=== PATIENT | male | born 1980 | race Caucasian/White ===

== ENCOUNTER 2016-07-23 13:18 | Inpatient (IN) | payer OTHER ==
[~2016-07-23] VITALS: Ht 167.6 cm; Wt 59.0 kg
[2016-07-23] VITALS (12 sets, daily range): BP systolic 116–205; BP diastolic 79–127; PULSE 90–109; TEMP 36.7–36.9; O2SAT 96; Ht 167.6 cm; Wt 59.0 kg
[~2016-07-23 13:18] MED LIST: ALPR-411 PO; AMLO-114 PO; AMT10 PO; ASPI81TA28 PO; CALC500C3 PO; CHOL1000 PO; CINA0.42 PO; CLON0.2T PO; CLON0.3D5 EXT; HYDR100T12 PO; LBT200 PO; LISI40TA PO; METO-157 PO; PANT40TA PO; SERT50TA PO; SEVE1TAB PO; TRAZ50TA35 PO
[2016-07-23] MEDS ORDERED: SODIUM CHLORIDE 0.9% 500ML 500 ML IV STA (13:54)
[2016-07-23] MEDS ORDERED: ONDANSETRON INJ 2 MG/ML 2 ML VIAL IV STA (13:54)
[2016-07-23] MEDS ORDERED: HYDROmorphone INJ 1 MG/ML SYR IV ONE (14:00)
[2016-07-23 15:02] LABS: BASO % 0.2 %; BASO ABS # 0.01 K/uL (0-0.2); COMPLETE YES; EOS % 0.2 %; HEMATOCRIT 37.9 % (42-52); IG% 0.2 %; LYMPH % 10.4 %; LYMPH ABS # 0.67 K/uL (1.2-3.4); MEAN CELL VOLUME 93.1 fL (80-100); MEAN CORPUSCULAR HGB CONC 33.2 g/dl (32-36); MEAN PLATELET VOLUME 11.1 fL (7.4-10.4); MONO % 7.4 %; NEUT % 81.6 %; PLATELET COUNT 129 K/uL (130-400); RED BLOOD COUNT 4.07 M/uL (4.7-6.1); WHITE BLOOD COUNT 6.45 K/uL (4.8-10.8)
[2016-07-23] MEDS ORDERED: HYDROmorphone INJ 1 MG/ML SYR IV STA (15:02)
[2016-07-23 17:00] LABS: CALCIUM 9.6 mg/dl (8.5-10.1); POTASSIUM 6.7 mmol/L (3.5-5.1)
[2016-07-23] MEDS ORDERED: SODIUM BICARB 8.4% INJ 50 MEQ/50 ML SYR IV STA (17:03)
[2016-07-23] MEDS ORDERED: CALCIUM GLUCONATE 10% 10 ML VIAL IV STA (17:03)
[2016-07-23] MEDS ORDERED: NovoLIN-R INSULIN PER UNIT CHARGE IV STA (17:05)
[2016-07-23] MEDS ORDERED: DEXTROSE 50% 50 ML SYR IV STA (17:05)
[2016-07-23] MEDS ORDERED: HydrALAZINE HCL 20 MG/ML VIAL IV. PRN (17:30)
[2016-07-23] MEDS ORDERED: ACETAMINOPHEN 325 MG TAB PO PRN (17:30)
[2016-07-23] MEDS ORDERED: HYDROmorphone INJ 1 MG/ML SYR IV PRN (17:45)
--- NOTE | 2016-07-23 17:59 | History and Physical ---
History & Physical Date & Time of Service: Jul 23, 2016 at 17:39 Chief Complaint: Abdominal Pain Primary Care Physician: Fanny Chen M.D. History of Present Illness 35 year old male who presents to the ER with abdominal pain. Patient is well known to our service and has had frequent admissions for intractable abdominal pain and hypertensive urgency. Patient's most recent admission was 07/14 - . Patient was evaluated by GI who felt as though patient's symptoms were secondary to uremic gastroparesis. Patient improved with conservative measures and was discharged home with consideration to have outpatient gastric emptying study completed. Patient reports that around 0100 he developed epigastric pain that was radiating to his back. He describes this as his typical pain he has been getting. He reports associated nausea and vomiting. He was unable to keep his medications down. No diarrhea. He denies hematemesis or coffee ground emesis. Patient did go to dialysis yesterday and had a full treatment. Patient denies fever or chills. No chest pain or shortness of breath. He denies lightheadedness or dizziness. He reports a mild headache and denies blurred vision. In the ER, patient is found to have K+ 6.7. No EKG changes are noted. Patient was given insulin, D50, calcium gluconate, and bicarb. Nephrology was called who has arranged for dialysis tonight. Past Medical/Surgical History Medical Problems: (1) Anxiety Status: Chronic (2) CAD (coronary artery disease) Permanent Comment: s/p stent placement Status: Chronic (3) Depression Status: Chronic (4) Dialysis patient Status: Chronic (5) ESRD (end stage renal disease) Status: Chronic (6) Fistula Status: Chronic (7) HTN (hypertension) Status: Chronic (8) Kidney transplant failure Status: Chronic (9) Thrombocytopenia Status: Chronic Surgical Problems: (1) Kidney transplant status Permanent Comment: R 1984 and L 2012 Status: Chronic (2) Stented coronary artery Permanent Comment: stents x 2 in [place] in 2006 and 2010 Status: Resolved Family History FH: diabetes mellitus FH: kidney disease Social History Smoking Status: Former Smoker Alcohol Use: none Immunizations History of Influenza Vaccine: Yes Influenza Vaccine Date: Apr 05, 2016 History of Tetanus Vaccine?: Yes Tetanus Immunization Date: Feb 12, 2014 History of Pneumococcal: Yes Pneumococcal Date: Feb 12, 2014 Allergies Coded Allergies: Minoxidil (Verified Adverse Reaction, Intermediate, priapism, 07/23/16) Prednisone (Verified Adverse Reaction, Intermediate, SEVERE GI UPSET, CONSTIPATION, 07/23/16) PER RECORDS Terazosin (Verified Adverse Reaction, Intermediate, priapism, 07/23/16) Home Medications Scheduled Alprazolam (Xanax), 0.5 MG PO UD Amitriptyline HCl (Amitriptyline HCl), 10 MG PO HS Amlodipine (Norvasc), 10 MG PO QPM Aspirin (Aspirin Ec), 81 MG PO QAM Cholecalciferol (Vitamin D3), 3,000 UNITS PO DAILY Cinacalcet (Sensipar), 30 MG PO UD Clonidine Hcl (Catapres), 0.4 MG PO TID Clonidine Hcl (Clonidine Hcl), 1 PATCH EXT WK Hydralazine Hcl (Apresoline), 1 TAB PO TID Labetalol HCl (Labetalol HCl), 200 MG PO BID Lisinopril (Zestril), 1 TAB PO QAM Metoclopramide (Reglan), 10 MG PO AC Pantoprazole (Protonix), 40 MG PO BID Sertraline (Zoloft), 50 MG PO QAM Sevelamer Hydroch (Renagel), 3,200 MG PO TIDM Trazodone Hcl (Trazodone), 50 MG PO HS Scheduled PRN Calcium Carbonate (Tums), 500 MG PO DAILY PRN for heartburn Review of Systems 10 point review of systems was completed with the pertinent positives and negatives noted per the HPI Physical Exam Vital Signs Date Time Temp Pulse Resp B/P Pulse Ox O2 Delivery O2 Flow Rate FiO2 07/23/16 17:16 87 07/23/16 16:00 79 20 191/86 93 Room Air 07/23/16 15:00 74 22 182/126 95 07/23/16 14:00 78 20 177/111 98 07/23/16 13:27 36.7 88 22 207/134 99 Room Air please refer to Dr. Steel's addendum for physical exam Diagnostics Laboratory Results Results Past 24 Hours Test 07/23/16 14:35 07/23/16 16:20 07/23/16 17:28 Range/Units White Blood Count 6.45 4.8-10.8 K/uL Red Blood Count 4.07 4.7-6.1 M/uL Hemoglobin 12.6 14.0-18.0 g/dL Hematocrit 37.9 42-52 % Mean Corpuscular Volume 93.1 80-100 fL Mean Corpuscular Hemoglobin 31.0 25-34 pg Mean Corpuscular Hemoglobin Concent 33.2 32-36 g/dl Platelet Count 129 130-400 K/uL Mean Platelet Volume 11.1 7.4-10.4 fL Neutrophils (%) (Auto) 81.6 % Lymphocytes (%) (Auto) 10.4 % Monocytes (%) (Auto) 7.4 % Eosinophils (%) (Auto) 0.2 % Basophils (%) (Auto) 0.2 % Neutrophils # (Auto) 5.27 1.4-6.5 K/uL Lymphocytes # (Auto) 0.67 1.2-3.4 K/uL Monocytes # (Auto) 0.48 0.11-0.59 K/uL Eosinophils # (Auto) 0.01 0-0.5 K/uL Basophils # (Auto) 0.01 0-0.2 K/uL RDW Standard Deviation 50.7 36.4-46.3 fL RDW Coefficient of Variation 14.9 11.5-14.5 % Immature Granulocyte % (Auto) 0.2 % Immature Granulocyte # (Auto) 0.01 0.00-0.02 K/uL Sodium Level 136 136-145 mmol/L Potassium Level 6.7 3.5-5.1 mmol/L Chloride Level 103 98-107 mmol/L Carbon Dioxide Level 21 21-32 mmol/L Anion Gap 12.0 3-11 mmol/L Blood Urea Nitrogen 55 7-18 mg/dl Creatinine 11.00 0.60-1.40 mg/dl Est Creatinine Clear Calc Drug Dose 7.8 ml/min Estimated GFR () 6.1 Estimated GFR (Non- 5.3 BUN/Creatinine Ratio 5.0 10-20 Random Glucose 79 70-99 mg/dl Calcium Level 9.6 8.5-10.1 mg/dl Total Bilirubin 0.4 0.2-1 mg/dl Direct Bilirubin 0.1 0-0.2 mg/dl Aspartate Amino Transf (AST/SGOT) 15 15-37 U/L Alanine Aminotransferase (ALT/SGPT) 13 12-78 U/L Alkaline Phosphatase 70 45-117 U/L Total Protein 7.9 6.4-8.2 gm/dl Albumin 3.4 3.4-5.0 gm/dl Lipase 342 73-393 U/L Impression Assessment and Plan HYPERKALEMIA - admit to tele - presenting with abdominal pain, N/V; found to have K+ 6.7, no EKG changes - s/p insulin, D50, calcium gluconate, and bicarb in ED - nephro contacted from ER who will arrange for dialysis tonight INTRACTABLE EPIGASTRIC ABDOMINAL PAIN /NAUSEA/VOMITING - patient was just discharged on 07/17/16 for similar symptoms, felt to be due to uremic gastroparesis; patient improved with conservative measures - for now will start clear liquid diet, advance as tolerated - LFTs and lipase noted to be WNL HYPERTENSIVE URGENCY : - BP 207/134 in ED; pt has history of uncontrolled HTN and was unable to keep his medications down due to N/N - continue PO hydralazine, clonidine PO and patch, lisinopril, Norvasc and labetalol - PRN IV Hydralazine CORONARY ARTERY DISEASE - S/P stent placement - continue ASA and beta parul ESRD ON HD - S/P failed renal transplant for glomerulonephritis - HD MWF - nephro consult DEPRESSION/ANXIETY - continue Zoloft GERD - continue PPI DVT PROPHYLAXIS -Heparin SQ Attending Note: Patient is a 35 Yr male with PMH of ESRD on HD, Uremic gastroparesis, HTN, CAD, GERD, depression and anxiety who had multiple admissions in the past with intractable abd pain, nausea and vomiting presents with epigastric abd pain radiating to back associated with nausea, vomiting and inability to keep his medications. Last dialysis was yesterday. Also reports mild headache. Physical Exam: Vital signs as noted above General: no apparent distress CVS: NSR, s1, s1, No murmur Resp: CTA, normal breath sounds Abd: Mild Epigastric and RUQ abd tender, soft, no guarding/rigidity Neuro: No focal deficits Assessment and Plan: Hypertensive Urgency: Mild headache likely secondary to above Will continue PO hydralazine, clonidine oral and patch, lisinopril, Norvasc and labetalol Add IV hydralazine PRN Hyperkalemia: No acute EKG changes Planned for HD tonight Nephrology consulted s/p insulin, D50, calcium gluconate, and bicarb Intractable Nausea/vomiting/epigastric abd pain: Likely secondary to Uremic gastroparesis Continue Reglan, Zofran PRN Advance diet as tolerated CAD: S/P stent: Stable. Continue home medications GERD: Continue PPI DVT Px: Heparin SQ VTE Prophylaxis VTE Risk Assessment Done? Y/N: Yes Risk Level: Moderate
[2016-07-23] MEDS ORDERED: HYDROmorphone INJ 0.5 MG/0.5 ML SYR ONE (18:47)
--- NOTE | 2016-07-23 18:53 | DIAGNOSTIC IMAGING REPORT ---
CHEST AND ABDOMEN 2 VIEWS HISTORY: Generalized abdominal pain. COMPARISON: Chest and abdomen 07/14/2016 FINDINGS: Stable linear scarlike densities at the right lung base. Otherwise, the lungs remain clear. The cardiomediastinal silhouette is within normal limits. There is no pneumoperitoneum or pneumatosis. The bowel gas pattern is unremarkable. No evidence for bowel obstruction. No renal calculi. A left-sided jugular catheter terminates in the SVC. Right lower quadrant calcifications remain unchanged. IMPRESSION: No acute cardiopulmonary process. No evidence for bowel obstruction. No change from the prior study. Electronically signed by: Morgan Paris M.D. 07/23/2016 6:51 PM
--- NOTE | 2016-07-23 18:53 | EMERGENCY ROOM VISIT NOTE ---
History Report prepared by Shaggy: Raina Diaz Under the Supervision of: Dr. Haris Kennedy D.O. First contact with patient: 13:35 Chief Complaint: BACK PAIN Stated Complaint: BACK PAIN History of Present Illness The patient is a 35 year old male who presents to the Emergency Room with complaints of worsening epigastric abdominal pain that started last night. The pain radiates straight through to back. He is also experiencing nausea and vomiting, but denies diarrhea. His last bowel movement was this morning and it was normal. The patient has a history of pancreatitis and states that his symptoms feel similar to that. The patient received a full course of dialysis yesterday. He states that his port was put in a couple weeks ago and it has been functioning normally. The patient has seen GI for his symptoms and they told him he had gastroparesis. He adds that he is supposed to have an emptying study done soon. He denies recent alcohol use. The patient still has his gallbladder. Source of History: patient Onset: last night Position: abdomen (epigastric) Timing: worsening Associated Symptoms: + back pain, + nausea, + vomiting, No diarrhea Review of Systems See HPI for pertinent positives & negatives. A total of 10 systems reviewed and were otherwise negative. Past Medical & Surgical Medical Problems: (1) Anxiety (2) CAD (coronary artery disease) (3) Depression (4) Dialysis patient (5) ESRD (end stage renal disease) (6) Fistula (7) HTN (hypertension) (8) Hypertensive urgency (9) Kidney transplant failure (10) Thrombocytopenia Surgical Problems: (1) Kidney transplant status (2) Stented coronary artery Family History FH: diabetes mellitus FH: kidney disease Social History Smoking Status: Former Smoker Alcohol Use: none Drug Use: none Marital Status: single Housing Status: lives alone Current/Historical Medications Scheduled Alprazolam (Xanax), 0.5 MG PO UD Amitriptyline HCl (Amitriptyline HCl), 10 MG PO HS Amlodipine (Norvasc), 10 MG PO QPM Aspirin (Aspirin Ec), 81 MG PO QAM Cholecalciferol (Vitamin D3), 3,000 UNITS PO DAILY Cinacalcet (Sensipar), 30 MG PO UD Clonidine Hcl (Catapres), 0.4 MG PO TID Clonidine Hcl (Clonidine Hcl), 1 PATCH EXT WK Hydralazine Hcl (Apresoline), 1 TAB PO TID Labetalol HCl (Labetalol HCl), 200 MG PO BID Lisinopril (Zestril), 1 TAB PO QAM Metoclopramide (Reglan), 10 MG PO AC Pantoprazole (Protonix), 40 MG PO BID Sertraline (Zoloft), 50 MG PO QAM Sevelamer Hydroch (Renagel), 3,200 MG PO TIDM Trazodone Hcl (Trazodone), 50 MG PO HS Scheduled PRN Calcium Carbonate (Tums), 500 MG PO DAILY PRN for heartburn Allergies Coded Allergies: Minoxidil (Verified Adverse Reaction, Intermediate, priapism, 07/23/16) Prednisone (Verified Adverse Reaction, Intermediate, SEVERE GI UPSET, CONSTIPATION, 07/23/16) PER RECORDS Terazosin (Verified Adverse Reaction, Intermediate, priapism, 07/23/16) Physical Exam Vital Signs Date Time Temp Pulse Resp B/P Pulse Ox O2 Delivery O2 Flow Rate FiO2 07/23/16 17:40 93 14 191/135 94 Room Air 07/23/16 17:16 87 07/23/16 16:00 79 20 191/86 93 Room Air 07/23/16 15:00 74 22 182/126 95 07/23/16 14:00 78 20 177/111 98 07/23/16 13:27 36.7 88 22 207/134 99 Room Air Physical Exam GENERAL: alert, laying in bed holding his abdomen, disheveled appearing, well nourished, moderate distress, non-toxic EYE EXAM: normal conjunctiva OROPHARYNX: no exudate, no erythema, lips, buccal mucosa, and tongue normal and mucous membranes are moist NECK: supple, no nuchal rigidity, no adenopathy, non-tender CHEST: Port located in left chest wall. LUNGS: Clear to auscultation. Normal chest wall mechanics HEART: tachycardic rate, systolic ejection murmur, S1 normal and S2 normal ABDOMEN: abdomen soft, non-tender, normo-active bowel sounds, no masses, no rebound or guarding. BACK: Back is symmetrical on inspection and there is no deformity, no midline tenderness, no CVA tenderness. SKIN: no rashes and no bruising UPPER EXTREMITIES: upper extremities are grossly normal. LOWER EXTREMITIES: No pitting edema. NEURO EXAM: Normal sensorium, cranial nerves II-XII grossly intact, normal speech, no gross weakness of arms, no gross weakness of legs. Medical Decision & Procedures Laboratory Results 07/23/16 14:35 Red Blood Count 4.07, Mean Corpuscular Volume 93.1, Mean Corpuscular Hemoglobin 31.0, Mean Corpuscular Hemoglobin Concent 33.2, Mean Platelet Volume 11.1, Neutrophils (%) (Auto) 81.6, Lymphocytes (%) (Auto) 10.4, Monocytes (%) (Auto) 7.4, Eosinophils (%) (Auto) 0.2, Basophils (%) (Auto) 0.2, Neutrophils # (Auto) 5.27, Lymphocytes # (Auto) 0.67, Monocytes # (Auto) 0.48, Eosinophils # (Auto) 0.01, Basophils # (Auto) 0.01 07/23/16 16:20 Test 07/23/16 14:35 07/23/16 16:20 07/23/16 17:18 White Blood Count 6.45 K/uL (4.8-10.8) Red Blood Count 4.07 M/uL (4.7-6.1) Hemoglobin 12.6 g/dL (14.0-18.0) Hematocrit 37.9 % (42-52) Mean Corpuscular Volume 93.1 fL (80-100) Mean Corpuscular Hemoglobin 31.0 pg (25-34) Mean Corpuscular Hemoglobin Concent 33.2 g/dl (32-36) Platelet Count 129 K/uL (130-400) Mean Platelet Volume 11.1 fL (7.4-10.4) Neutrophils (%) (Auto) 81.6 % Lymphocytes (%) (Auto) 10.4 % Monocytes (%) (Auto) 7.4 % Eosinophils (%) (Auto) 0.2 % Basophils (%) (Auto) 0.2 % Neutrophils # (Auto) 5.27 K/uL (1.4-6.5) Lymphocytes # (Auto) 0.67 K/uL (1.2-3.4) Monocytes # (Auto) 0.48 K/uL (0.11-0.59) Eosinophils # (Auto) 0.01 K/uL (0-0.5) Basophils # (Auto) 0.01 K/uL (0-0.2) RDW Standard Deviation 50.7 fL (36.4-46.3) RDW Coefficient of Variation 14.9 % (11.5-14.5) Immature Granulocyte % (Auto) 0.2 % Immature Granulocyte # (Auto) 0.01 K/uL (0.00-0.02) Anion Gap 12.0 mmol/L (3-11) Est Creatinine Clear Calc Drug Dose 7.8 ml/min Estimated GFR () 6.1 Estimated GFR (Non- 5.3 BUN/Creatinine Ratio 5.0 (10-20) Calcium Level 9.6 mg/dl (8.5-10.1) Total Bilirubin 0.4 mg/dl (0.2-1) Direct Bilirubin 0.1 mg/dl (0-0.2) Aspartate Amino Transf (AST/SGOT) 15 U/L (15-37) Alanine Aminotransferase (ALT/SGPT) 13 U/L (12-78) Alkaline Phosphatase 70 U/L (45-117) Total Protein 7.9 gm/dl (6.4-8.2) Albumin 3.4 gm/dl (3.4-5.0) Lipase 342 U/L (73-393) Bedside Glucose 76 mg/dl (70-99) Laboratory results per my review. Medications Administered Medications (Trade) Dose Ordered Sig/Betsy Route Start Time Stop Time Status Last Admin Dose Admin Sodium Chloride (Nss 500ml) 500 ml @ 999 mls/hr Q31M STAT IV 07/23/16 13:54 07/23/16 14:24 DC 07/23/16 13:54 999 MLS/HR Ondansetron HCl (Zofran Inj) 4 mg NOW STAT IV 07/23/16 13:54 07/23/16 13:56 DC 07/23/16 13:54 4 MG Hydromorphone HCl (Dilaudid Inj) 1 mg NOW ONCE IV 07/23/16 14:00 07/23/16 14:01 DC 07/23/16 14:00 1 MG Hydromorphone HCl (Dilaudid Inj) 1 mg NOW STAT IV 07/23/16 15:02 07/23/16 15:04 DC 07/23/16 15:02 1 MG Calcium Gluconate (Calcium Gluconate 10%) 1,000 mg NOW STAT IV 07/23/16 17:03 07/23/16 17:04 DC 07/23/16 17:26 1,000 MG Sodium Bicarbonate (Sodium Bicarbonate 8.4% Inj) 50 ml NOW STAT IV 07/23/16 17:03 07/23/16 17:04 DC 07/23/16 17:30 50 ML Insulin Human Regular (novoLIN-R U-100 PER UNIT) 10 units NOW STAT IV 07/23/16 17:05 07/23/16 17:06 DC 07/23/16 17:35 10 UNITS Dextrose (Dextrose 50% 50ML Syringe) 50 ml NOW STAT IV 07/23/16 17:05 07/23/16 17:06 DC 07/23/16 17:21 50 ML Hydromorphone HCl (Dilaudid Inj) 0.5 mg Q8H PRN IV 07/23/16 17:45 08/06/16 17:44 07/23/16 18:49 0.5 MG ECG Indication: abdominal pain Rate (beats per minute): 75 Rhythm: sinus rhythm Findings: T-wave inversion (Septal), no ectopy, other (normal axis) ED Course ED COURSE: Vital signs were reviewed and showed hypertension. The patients medical record was reviewed The above diagnostic studies were performed and reviewed. ED treatments and interventions as stated above. 1350: The patient was evaluated in room C11. A complete history and physical examination was performed. 1354: Ordered Zofran 4 mg IV, Sodium Chloride 500 ml @ 999 mls/hr IV 1400: Ordered Dilaudid 1 mg IV 1502: Ordered Dilaudid 1 mg IV 1547: I reassessed the patient. He is sleeping and feeling better. His blood pressure is also improving. 1702: Upon reevaluation, the patient is resting comfortably. I discussed my findings with the patient and he understands and agrees with the treatment plan. Based on the patients age, coexisting illnesses, exam and lab findings the decision to treat as an inpatient was made. The patient remained stable while under my care. The patient will be evaluated for further management. 1703: Ordered Sodium Bicarbonate 50 ml IV, Calcium Gluconate 1000 mg IV 1704: I reviewed the patient's case with Ivis Lujan. She will evaluate the patient for further management. 1705: Ordered Dextrose 50 ml IV, Insulin Human Regular 10 units IV 1710: I reviewed the patient's case with Dr. Alejandro Corcoran. She will have the patient receive dialysis tonight. Medical Decision Differential diagnoses includes but is not limited to gastritis, peptic ulcer disease, GERD, gallbladder disease, pancreatitis, small bowel obstruction, acute coronary syndrome, pericarditis, ischemic bowel, irritable bowel disease, irritable bowel syndrome, appendicitis, diverticulitis, malignancy, hernia, urinary tract infection, torsion, perforation, trauma, infectious. Patient is a 35-year-old male who is dialysis dependent that received full course yesterday who presents the ER for epigastric abdominal pain associated with nausea and vomiting. He has a past medical history of pancreatitis along with gastroparesis. Labs showed no significant leukocytosis or anemia. BMP was remarkable for creatinine 11 and a potassium of 6.7. LFTs along with bilirubin and lipase were unremarkable. Following the potassium he is given bicarbonate and calcium. I called nephrology they agreed to give him dialysis. Patient was then admitted to internal medicine for hypokalemia. His EKG did not show any peaked T waves or signs of hyperkalemia. He was given a bolus normal saline along with 2 doses of Dilaudid upon initial presentation. Consults Time Called: 170 Consulting Physician: Ivis Lujan Returned Call: 1704 I reviewed the patient's case with Ivis Lujan. She will evaluate the patient for further management. Additional Consults: Time Called: 1705 Consulted Physician: Dr. Alejandro Corcoran Returned Call: [phone] Additional Comments: I reviewed the patient's case with Dr. Alejandro Corcoran. She will have the patient receive dialysis tonight. Impression Primary Impression: Epigastric abdominal pain Additional Impressions: Hyperkalemia, Nausea & vomiting Scribe Attestation The scribe's documentation has been prepared under my direction and personally reviewed by me in its entirety. I confirm that the note above accurately reflects all work, treatment, procedures, and medical decision making performed by me. Departure Information Dispostion Being Evaluated By Hospitalist Fanny Gibson M.D. (PCP) Patient Instructions A Signature Page, My [facility]
[2016-07-23] MEDS ORDERED: HEPARIN SOD (PORCINE) 1000 UNIT/ML 10 ML VIAL IV SCH (21:30)
[2016-07-23] MEDS: SEVELAMER HYDROCH 800 MG TAB PO SCH (22:00)
[2016-07-23] MEDS: LABETALOL HCL 200 MG TAB PO SCH (22:11)
[2016-07-23] MEDS: CLONIDINE HCL 0.1 MG TAB PO SCH (22:12)
[2016-07-23] MEDS ORDERED: HYDROmorphone INJ 1 MG/ML SYR ONE (22:24)
[2016-07-23] MEDS: HYDROmorphone INJ 1 MG/ML SYR IV PRN ×2 (22:27→22:59)
[2016-07-23] MEDS: HEPARIN SOD 5000 UNIT/0.5 ML CARP SQ SCH (23:00)
[2016-07-23] MEDS: AMLODIPINE BESYLATE 5 MG TAB PO SCH (23:43)
[2016-07-23] MEDS: TRAZODONE HCL 50 MG TAB PO SCH (23:44)
[2016-07-23] MEDS: PANTOprazole SOD 40 MG TAB PO SCH (23:44)
[2016-07-23] MEDS: AMITRIPTYLINE HCL 10 MG TAB PO SCH (23:45)
[2016-07-23] MEDS: CHECK CLONIDINE PATCH PLACEMENT SCH (23:47)
[2016-07-24] VITALS (16 sets, daily range): BP systolic 117–163; BP diastolic 58–86; PULSE 69–97; TEMP 36.4–37.1; O2SAT 92–99
[2016-07-24] MEDS: ONDANSETRON INJ 2 MG/ML 2 ML VIAL IV PRN ×2 (04:25→19:21)
[2016-07-24] MEDS: HYDROmorphone INJ 1 MG/ML SYR IV PRN ×5 (04:25→23:49)
[2016-07-24] MEDS: METOCLOPRAMIDE HCL 10 MG TAB PO SCH ×3 (07:06→16:06)
[2016-07-24 07:22] LABS: HEMATOCRIT 38.2 % (42-52); MEAN CELL VOLUME 94.6 fL (80-100); MEAN CORPUSCULAR HEMOGLOBIN 31.4 pg (25-34); MEAN CORPUSCULAR HGB CONC 33.2 g/dl (32-36); MEAN PLATELET VOLUME 10.7 fL (7.4-10.4); PLATELET COUNT 140 K/uL (130-400); RED BLOOD COUNT 4.04 M/uL (4.7-6.1); WHITE BLOOD COUNT 5.54 K/uL (4.8-10.8)
[2016-07-24 07:28] LABS: INR 1.1 (0.9-1.1); PROTHROMBIN TIME (PATIENT) 11.8 SECONDS (9.0-12.0)
[2016-07-24] MEDS: ASPIRIN 81 MG ECTAB PO SCH (07:40)
[2016-07-24] MEDS: LABETALOL HCL 200 MG TAB PO SCH ×2 (07:40→19:29)
[2016-07-24] MEDS: SEVELAMER HYDROCH 800 MG TAB PO SCH ×3 (07:40→16:05)
[2016-07-24] MEDS: CLONIDINE HCL 0.1 MG TAB PO SCH ×3 (07:41→19:30)
[2016-07-24] MEDS: CHOLECALCIFEROL 1000 INTER.UNIT TAB PO SCH (07:41)
[2016-07-24] MEDS: CHECK CLONIDINE PATCH PLACEMENT SCH ×3 (07:42→23:30)
[2016-07-24] MEDS: PANTOprazole SOD 40 MG TAB PO SCH ×2 (07:43→19:31)
[2016-07-24] MEDS: LISINOPRIL 40 MG TAB PO SCH (07:43)
[2016-07-24] MEDS: SERTRALINE HCL 50 MG TAB PO SCH (07:43)
[2016-07-24] MEDS: HEPARIN SOD 5000 UNIT/0.5 ML CARP SQ SCH ×2 (07:45→19:23)
[2016-07-24 08:36] LABS: BUN/CREATININE RATIO 3.8 (10-20); CALCIUM 9.1 mg/dl (8.5-10.1); CREATININE 8.4 mg/dl (0.60-1.40); POTASSIUM 5.7 mmol/L (3.5-5.1)
--- NOTE | 2016-07-24 11:02 | NEPHROLOGY CONSULTATION ---
DATE OF CONSULTATION: 07/24/2016 ATTENDING OF RECORD: Dr. Steel. REASON FOR CONSULTATION: Hyperkalemia and ESRD. HISTORY: This is a 35-year-old male who has had frequent hospitalizations for headaches, hypertensive urgency, hyperkalemia and abdominal pain. He has had issues with chronic pancreatitis in the past and comes in again with intractable abdominal pain, found to have a potassium level of 6.7, required emergent dialysis last night. The patient's abdominal pain is improving this morning, he is on a clear liquid diet, no more significant nausea or vomiting and currently no headaches. PAST MEDICAL HISTORY: Heart disease, status post stent placement, ESRD, history of fistula attempts in the past, tunneled dialysis catheters, hypertension, kidney transplant x2. PAST SURGICAL HISTORY: Kidney transplant, one in 1984 and one in 2012, as well as heart stents x2, one in 2006 and one in 2010, fistula surgery attempts, tunneled dialysis catheters. FAMILY HISTORY: Significant for diabetes. SOCIAL HISTORY: Currently smokes. No alcohol. No drugs. Lives with a friend. CURRENT MEDICATIONS: Clonidine patch 0.3 mg weekly, Sensipar 30 mg daily, aspirin 81 mg daily, lisinopril 40 mg daily, Zoloft 50 mg daily, vitamin D 3000 units daily, Reglan 10 mg with meals, heparin 5000 units subcu q. 12, Renagel 3200 mg p.o. t.i.d. with meals, Norvasc 10 mg daily, Elavil 10 mg at night, hydralazine 100 mg p.o. t.i.d., labetalol 200 mg p.o. b.i.d., Protonix 40 mg p.o. b.i.d., trazodone 50 mg at night, clonidine 0.4 mg p.o. t.i.d. REVIEW OF SYSTEMS: Positive headaches. Positive abdominal pain. Positive nausea and vomiting. No shortness of breath. No chest pain. No rash or itching. No dysphagia. No diarrhea or constipation. All other review of systems otherwise negative. PHYSICAL EXAMINATION: VITAL SIGNS: Temperature 36.6, pulse 97, respiratory rate is 18, blood pressure is 146/86, pulse ox 92% on room air. GENERAL: Awake, alert, oriented x3. EYES: No scleral icterus. ENT: Moist mucous membranes. NECK: Supple. PULMONARY: Clear to auscultation. CARDIAC: Regular rate and rhythm. ABDOMEN: Mild epigastric tenderness. EXTREMITIES: No clubbing, cyanosis or edema. NEUROLOGICAL: Nonfocal. DERMATOLOGIC: No rash or ulcers noted. LABORATORIES: Pending for this morning; however, potassium level did improve from 6.7 to 4.5 after dialysis. Lipase was 342. Abdominal x-ray showed no acute cardiopulmonary process, no evidence for bowel obstruction. IMPRESSION AND PLAN: 1. End-stage renal disease. The patient dialyzes Mondays, Wednesdays and Fridays. Last dialysis was Friday. Unclear why we are currently having issues with high potassium. I have reviewed high potassium foods to avoid with him. Question if there is an element of recirculation with the tunneled dialysis catheter. Even in the hospital on a renal diet, have had issues with high potassium. We will likely plan on dialysis again today this afternoon. We will discuss further with the dialysis nurses. 2. Access. The patient has a tunneled dialysis catheter, has had failed fistula attempts in the past. Dr. Aguirre of vascular surgery has attempted to do fistula surgery on the patient; however, with frequent hospitalizations and issues with high potassium, has been difficult to do as an outpatient. I have consulted Dr. Aguirre to consider fistula placement while here in the hospital where we can control the patient's blood pressures and potassium levels much better as compared to an outpatient setting. [place]
--- NOTE | 2016-07-24 12:52 | Progress Note ---
Internal Med Progress Note Date of Service: Jul 24, 2016. Provider Documentation: SUBJECTIVE: Patient is interviewed and examined at bedside. He reports he feels much better when compared to yesterday. Abd pain is improving. denies any nausea, vomiting, diarrhea. OBJECTIVE: Vital Signs-as noted below General: no apparent distress, Moderately built and nourished Eyes: EOMI, PERRLA Neck: Supple, No JVD, Trachea midline HEENT: Normocephalic/atraumatic CVS: S1, S2, + murmur Resp: Clear to auscultation bilaterally, normal breath sounds Abd: Soft, non tender, no guarding/rigidity/Organomegaly Neuro: No focal deficits Extremities: No cyanosis, clubbing, pedal edema Skin: dialysis catheter on left side of chest, warm, intact, no rash Psy: No issues Lab data as noted below. ASSESSMENT & PLAN: Patient is a 35 Yr male with PMH of ESRD on HD, Uremic gastroparesis, HTN, CAD, GERD, depression and anxiety who had multiple hospitalizations for hypertensive urgency, hyperkalemia and intractable abdominal pain, nausea and vomiting and had problems with chronic pancreatitis in the past presents with epigastric abd pain radiating to back associated with nausea, vomiting and inability to keep his medications. He was also found to have hyperkalemia of 6.7 with no EKG changes. Hypertensive Urgency: Mild headache likely secondary to above- currently resolved Blood pressure better controlled Continue PO hydralazine, clonidine oral and patch, lisinopril , Norvasc and labetalol IV hydralazine PRN Hyperkalemia: Unclear etiology. ? Recirculation with tunneled dialysis catheter No acute EKG changes s/p insulin, D50, calcium gluconate, and bicarb while in ED Planned for HD today Appreciate Nephrology help Monitor potassium levels Intractable Nausea/vomiting/epigastric abd pain: Likely secondary to Uremic gastroparesis Continue Reglan, Zofran PRN Advance diet as tolerated ESRD on Hemodialysis: Dialysis on MWF Failed fistula attempts in the past Vascular surgery consulted to consider fistula placement CAD: S/P stent: Stable. Continue home medications GERD: Continue PPI Depression/Anxiety: Continue Zoloft DVT Px: Heparin SQ Disposition: Keep him as inpatient Vital Signs: Date Time Temp Pulse Resp B/P Pulse Ox O2 Delivery O2 Flow Rate FiO2 07/24/16 11:31 36.6 71 16 121/80 95 Room Air 07/24/16 08:00 Room Air 07/24/16 07:23 36.8 83 18 163/58 94 Room Air 07/24/16 04:00 92 Room Air 07/24/16 03:44 36.6 97 18 146/86 92 Room Air 07/24/16 00:00 36.8 91 117/72 95 Room Air 07/24/16 00:00 95 Room Air 07/23/16 23:30 36.9 90 127/86 07/23/16 23:00 94 136/79 07/23/16 22:45 93 116/100 07/23/16 22:30 95 165/113 07/23/16 22:15 109 205/126 07/23/16 22:00 101 174/115 07/23/16 21:45 96 182/123 07/23/16 21:30 95 174/110 07/23/16 21:15 97 189/127 07/23/16 20:55 36.9 97 196/122 07/23/16 20:23 36.7 97 19 194/111 07/23/16 20:18 96 Room Air 07/23/16 19:34 102 15 193/125 94 Room Air 07/23/16 18:45 203/137 07/23/16 17:40 93 14 191/135 94 Room Air 07/23/16 17:16 87 07/23/16 16:00 79 20 191/86 93 Room Air 07/23/16 15:00 74 22 182/126 95 07/23/16 14:00 78 20 177/111 98 07/23/16 13:27 36.7 88 22 207/134 99 Room Air Lab Results: Results Past 24 Hours Test 07/23/16 14:35 07/23/16 16:20 07/23/16 17:18 07/23/16 19:01 Range/Units White Blood Count 6.45 4.8-10.8 K/uL Red Blood Count 4.07 4.7-6.1 M/uL Hemoglobin 12.6 14.0-18.0 g/dL Hematocrit 37.9 42-52 % Mean Corpuscular Volume 93.1 80-100 fL Mean Corpuscular Hemoglobin 31.0 25-34 pg Mean Corpuscular Hemoglobin Concent 33.2 32-36 g/dl Platelet Count 129 130-400 K/uL Mean Platelet Volume 11.1 7.4-10.4 fL Neutrophils (%) (Auto) 81.6 % Lymphocytes (%) (Auto) 10.4 % Monocytes (%) (Auto) 7.4 % Eosinophils (%) (Auto) 0.2 % Basophils (%) (Auto) 0.2 % Neutrophils # (Auto) 5.27 1.4-6.5 K/uL Lymphocytes # (Auto) 0.67 1.2-3.4 K/uL Monocytes # (Auto) 0.48 0.11-0.59 K/uL Eosinophils # (Auto) 0.01 0-0.5 K/uL Basophils # (Auto) 0.01 0-0.2 K/uL RDW Standard Deviation 50.7 36.4-46.3 fL RDW Coefficient of Variation 14.9 11.5-14.5 % Immature Granulocyte % (Auto) 0.2 % Immature Granulocyte # (Auto) 0.01 0.00-0.02 K/uL Sodium Level 136 136-145 mmol/L Potassium Level 6.7 3.5-5.1 mmol/L Chloride Level 103 98-107 mmol/L Carbon Dioxide Level 21 21-32 mmol/L Anion Gap 12.0 3-11 mmol/L Blood Urea Nitrogen 55 7-18 mg/dl Creatinine 11.00 0.60-1.40 mg/dl Est Creatinine Clear Calc Drug Dose 7.8 ml/min Estimated GFR () 6.1 Estimated GFR (Non- 5.3 BUN/Creatinine Ratio 5.0 10-20 Random Glucose 79 70-99 mg/dl Calcium Level 9.6 8.5-10.1 mg/dl Total Bilirubin 0.4 0.2-1 mg/dl Direct Bilirubin 0.1 0-0.2 mg/dl Aspartate Amino Transf (AST/SGOT) 15 15-37 U/L Alanine Aminotransferase (ALT/SGPT) 13 12-78 U/L Alkaline Phosphatase 70 45-117 U/L Total Protein 7.9 6.4-8.2 gm/dl Albumin 3.4 3.4-5.0 gm/dl Lipase 342 73-393 U/L Bedside Glucose 76 84 70-99 mg/dl Test 07/24/16 00:05 07/24/16 07:00 Range/Units Potassium Level 4.5 5.7 3.5-5.1 mmol/L White Blood Count 5.54 4.8-10.8 K/uL Red Blood Count 4.04 4.7-6.1 M/uL Hemoglobin 12.7 14.0-18.0 g/dL Hematocrit 38.2 42-52 % Mean Corpuscular Volume 94.6 80-100 fL Mean Corpuscular Hemoglobin 31.4 25-34 pg Mean Corpuscular Hemoglobin Concent 33.2 32-36 g/dl RDW Standard Deviation 51.4 36.4-46.3 fL RDW Coefficient of Variation 14.8 11.5-14.5 % Platelet Count 140 130-400 K/uL Mean Platelet Volume 10.7 7.4-10.4 fL Prothrombin Time 11.8 9.0-12.0 SECONDS Prothromb Time International Ratio 1.1 0.9-1.1 Sodium Level 138 136-145 mmol/L Chloride Level 101 98-107 mmol/L Carbon Dioxide Level 27 21-32 mmol/L Anion Gap 10.0 3-11 mmol/L Blood Urea Nitrogen 32 7-18 mg/dl Creatinine 8.40 0.60-1.40 mg/dl Est Creatinine Clear Calc Drug Dose 10.0 ml/min Estimated GFR () 8.5 Estimated GFR (Non- 7.3 BUN/Creatinine Ratio 3.8 10-20 Random Glucose 86 70-99 mg/dl Calcium Level 9.1 8.5-10.1 mg/dl
--- NOTE | 2016-07-24 13:01 | Medical Consult ---
Consultation Note Consultation Note CC: End stage renal disease HPI: Mr. Do is a 35 yo m with multiple medical problems, including ESRD on HD, HTN, CAD, failed renal tx, seen in consultation today for creation of AV fistula for HD. He states he had first renal tx at age 3. He said it functioned for over 20 years before it failed, then he went on hemodialysis. He states that he then underwent another renal transplant, and that one lasted only two years before failing on him. He states that he previously had two fistulas created in his left arm, the first one at his wrist, the second one in his left upper arm cephalic vein. 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 He denies any other complaints at this time, including headaches, fevers, chills, dizziness, chest pain, shortness of breath , abdominal pain, nausea, vomiting, diarrhea, constipation, dysuria, hematuria, rest pain, claudication, nonhealing wounds or ulcers or other complaints. He does state that he is interested in continuous ambulatory peritoneal dialysis at home; however, he has not gone through the training for that as of yet. A vein mapping ultrasound performed in office demonstrates a usable left upper arm basilic vein for fistula creation. Had been scheduled for LUE basilic v AVF creation, but has been postponed d/t persistent hyperkalemia. Currently admitted with abd pain and hyperkalemia. ALLERGIES: MINOXIDIL AND TERAZOSIN. HOME MEDICATIONS: Reconciled in the chart and include the following; amitriptyline, Benicar, clonidine patch, Coreg, hydralazine, lisinopril, Norvasc , pantoprazole, Reglan, Sensipar, and vitamin D3. PAST MEDICAL HISTORY: Positive for hypertension, end-stage renal disease on hemodialysis, gastroesophageal reflux disease. PAST SURGICAL HISTORY: Positive for renal transplant in 1984, renal transplant in 2012, creation of an arteriovenous fistula x2 in the left arm and insertion of a tunneled dialysis catheter. SOCIAL HISTORY: Positive for past history of tobacco use. The patient states he quit approximately 1 month ago. FAMILY HISTORY: Noncontributory. REVIEW OF SYSTEMS: Negative for fatigue, fevers, sweats, weight loss, exercise intolerance, abnormal moles or rashes, vision changes or photophobia, ear pain, sinus problems or sore throat, cough, shortness of breath, hemoptysis or wheezing, chest pain, palpitations, edema or syncope, abdominal pain, nausea, vomiting, diarrhea, constipation, dysuria, hematuria, muscle weakness, headaches , dizziness, numbness or seizures. PHYSICAL EXAMINATION: Constitutional: In general, patient is a mildly chronically ill-appearing middle-aged male in no acute distress. He ambulates without assistance and is active, alert and oriented x4 with normal recent and remote memory. His head is normocephalic, atraumatic. Eyes are EOMI. His ENMT exam demonstrates no hearing loss, rhinorrhea or pharyngeal erythema. His neck is supple, nontender with midline trachea without masses or crepitus. Lung exam demonstrates no dyspnea. They are clear to auscultation bilaterally, although somewhat decreased throughout. His cardiovascular exam demonstrates a nondisplaced apical impulse with a regular rate and rhythm without murmurs, lifts, heaves, thrills or gallops. Peripheral pulses are full and equal in all extremities unless otherwise noted, specifically they are normal in his carotid , brachial, radial and femoral pulses. His bilateral lower extremities distal pulses are +2. He has brisk capillary refill and no sign of distal ischemia. The patient demonstrates no bruits in his carotid, abdominal or femoral area. His abdomen is soft,mildly tender, with normoactive bowel sounds in all 4 quadrants without guarding or rebound. There is no flank or CVA tenderness. His musculoskeletal exam demonstrates normal tone and strength for age. His bilateral upper extremities demonstrate no cyanosis, edema, clubbing, varicosities or ulcers. His bilateral lower extremities demonstrate no cyanosis , edema, clubbing, varicosities or ulcers. Patient's left arm does demonstrate surgical incisions on his wrist as well as an antecubital surgical incision and a [id number] upper arm surgical incision as well. 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 Neurologic: Patient is grossly intact cranial nerves and grossly intact sensation. ASSESSMENT AND PLAN: End-stage renal disease on hemodialysis. Pt discussed with Dr Aguirre, recommends LUE basilic v AVF creation in OR possibly this FRIDAY while inpt. Hopefully will have better control of potassium levels while inpt. D/T abd pain, will not recommend insertion of CAPD catheter as previously discussed with pt. (Olive Napier, PA-C) Consultation Note Patient was seen, examined, and chart reviewed. Agree with exam and treatment plan of the Vascular PA. Patient for fistula creation this friday, left antecubital basilic vein. I have discussed the risks options and benefits of the procedure with the patient. The patient understands the risks options and benefits and agrees to the procedure. (Ziggy Aguirre M.D.)
[2016-07-24] MEDS: CINACALCET 30 MG TAB PO SCH (16:07)
[2016-07-24] MEDS: AMLODIPINE BESYLATE 5 MG TAB PO SCH (19:30)
[2016-07-24] MEDS: AMITRIPTYLINE HCL 10 MG TAB PO SCH (19:30)
[2016-07-24] MEDS: TRAZODONE HCL 50 MG TAB PO SCH (19:30)
[2016-07-24] MEDS ORDERED: ALPRAZOLAM 0.5 MG TAB PO STA (22:32)
[2016-07-24] MEDS ORDERED: ALPRAZOLAM 0.5 MG TAB ONE (22:40)
[2016-07-25] VITALS (12 sets, daily range): BP systolic 109–148; BP diastolic 68–97; PULSE 68–78; TEMP 36.4–37.1; O2SAT 93–97
[2016-07-25] MEDS: HYDROmorphone INJ 1 MG/ML SYR IV PRN ×5 (04:48→21:38)
[2016-07-25 07:10] LABS: HEMATOCRIT 35.1 % (42-52); MEAN CELL VOLUME 93.6 fL (80-100); MEAN CORPUSCULAR HEMOGLOBIN 30.7 pg (25-34); MEAN CORPUSCULAR HGB CONC 32.8 g/dl (32-36); MEAN PLATELET VOLUME 10.6 fL (7.4-10.4); PLATELET COUNT 134 K/uL (130-400); RED BLOOD COUNT 3.75 M/uL (4.7-6.1); WHITE BLOOD COUNT 5.11 K/uL (4.8-10.8)
[2016-07-25] MEDS: CHECK CLONIDINE PATCH PLACEMENT SCH ×3 (08:00→23:00)
[2016-07-25 08:02] LABS: BUN/CREATININE RATIO 3.8 (10-20); CREATININE 7.4 mg/dl (0.60-1.40); POTASSIUM 4.8 mmol/L (3.5-5.1)
[2016-07-25] MEDS: LISINOPRIL 40 MG TAB PO SCH (08:39)
[2016-07-25] MEDS: METOCLOPRAMIDE HCL 10 MG TAB PO SCH ×3 (08:39→16:25)
[2016-07-25] MEDS: CHOLECALCIFEROL 1000 INTER.UNIT TAB PO SCH (08:40)
[2016-07-25] MEDS: SERTRALINE HCL 50 MG TAB PO SCH (08:40)
[2016-07-25] MEDS: LABETALOL HCL 200 MG TAB PO SCH ×2 (08:40→21:42)
[2016-07-25] MEDS: ASPIRIN 81 MG ECTAB PO SCH (08:40)
[2016-07-25] MEDS: SEVELAMER HYDROCH 800 MG TAB PO SCH ×3 (08:41→16:26)
[2016-07-25] MEDS: CLONIDINE HCL 0.1 MG TAB PO SCH ×3 (08:41→21:42)
[2016-07-25] MEDS: PANTOprazole SOD 40 MG TAB PO SCH ×2 (08:41→21:40)
[2016-07-25] MEDS: HEPARIN SOD 5000 UNIT/0.5 ML CARP SQ SCH ×2 (08:42→21:00)
--- NOTE | 2016-07-25 14:38 | Progress Note ---
Internal Med Progress Note Date of Service: Jul 25, 2016. Provider Documentation: SUBJECTIVE: Patient is interviewed and examined at bedside. Patient denies any nausea, vomiting, abdominal pain. States tolerating diet. OBJECTIVE: Vital Signs-as noted below General: no apparent distress, Moderately built and nourished Eyes: EOMI, PERRLA Neck: Supple, No JVD, Trachea midline HEENT: Normocephalic/atraumatic CVS: S1, S2, + murmur Resp: Clear to auscultation bilaterally, normal breath sounds Abd: Soft, non tender, no guarding/rigidity/Organomegaly Neuro: No focal deficits Extremities: No cyanosis, clubbing, pedal edema Skin: dialysis catheter on left side of chest, warm, intact, no rash Psy: No issues Lab data as noted below. ASSESSMENT & PLAN: Patient is a 35 Yr male with PMH of ESRD on HD, Uremic gastroparesis, HTN, CAD, GERD, depression and anxiety who had multiple hospitalizations for hypertensive urgency, hyperkalemia and intractable abdominal pain, nausea and vomiting and had problems with chronic pancreatitis in the past presents with epigastric abd pain radiating to back associated with nausea, vomiting and inability to keep his medications. He was also found to have hyperkalemia of 6.7 with no EKG changes. ESRD on Hemodialysis: Dialysis on MWF Failed fistula attempts in the past NPO from midnight Appreciate Vascular surgery input Possible LUE basilic v AVF creation in OR tomorrow Hypertensive Urgency: Resolved Mild headache likely secondary to above- resolved Blood pressure controlled Continue PO hydralazine, clonidine oral and patch, lisinopril , Norvasc and labetalol IV hydralazine PRN Hyperkalemia: Resolved Unclear etiology. ? Recirculation with tunneled dialysis catheter No acute EKG changes s/p insulin, D50, calcium gluconate, and bicarb while in ED Got Hemodialysis yesterday HD per Nephrology Appreciate Nephrology help Monitor potassium levels Intractable Nausea/vomiting/epigastric abd pain: Resolved Likely secondary to Uremic gastroparesis Continue Reglan, Zofran PRN Will advance to renal diet CAD: S/P stent: Stable. Continue home medications GERD: Continue PPI Depression/Anxiety: Continue Zoloft DVT Px: Heparin SQ Disposition: Keep him as inpatient Vital Signs: Date Time Temp Pulse Resp B/P Pulse Ox O2 Delivery O2 Flow Rate FiO2 07/25/16 12:00 Room Air 07/25/16 11:21 36.4 69 22 131/85 97 Room Air 07/25/16 08:06 36.8 72 18 127/81 94 Room Air 07/25/16 08:00 Room Air 07/25/16 04:00 Room Air 07/25/16 03:00 36.6 77 18 133/77 94 Room Air 07/25/16 01:12 36.5 74 125/79 07/25/16 01:00 69 109/68 07/25/16 00:45 70 110/77 07/25/16 00:30 72 121/78 07/25/16 00:15 75 114/70 07/25/16 00:00 78 121/77 07/24/16 23:59 Room Air 07/24/16 23:45 75 121/81 07/24/16 23:30 72 119/78 07/24/16 23:15 73 118/83 07/24/16 23:00 37.1 19 93 Room Air 07/24/16 23:00 74 119/81 07/24/16 22:45 72 125/83 07/24/16 22:30 72 130/82 07/24/16 22:15 76 124/81 07/24/16 22:00 70 121/79 07/24/16 21:55 36.4 72 123/83 07/24/16 20:00 Room Air 07/24/16 19:41 36.9 73 18 139/68 94 Room Air 07/24/16 16:00 Room Air 07/24/16 15:38 37.0 69 18 123/79 99 Lab Results: Results Past 24 Hours Test 07/25/16 06:35 Range/Units White Blood Count 5.11 4.8-10.8 K/uL Red Blood Count 3.75 4.7-6.1 M/uL Hemoglobin 11.5 14.0-18.0 g/dL Hematocrit 35.1 42-52 % Mean Corpuscular Volume 93.6 80-100 fL Mean Corpuscular Hemoglobin 30.7 25-34 pg Mean Corpuscular Hemoglobin Concent 32.8 32-36 g/dl RDW Standard Deviation 49.9 36.4-46.3 fL RDW Coefficient of Variation 14.6 11.5-14.5 % Platelet Count 134 130-400 K/uL Mean Platelet Volume 10.6 7.4-10.4 fL Sodium Level 137 136-145 mmol/L Potassium Level 4.8 3.5-5.1 mmol/L Chloride Level 102 98-107 mmol/L Carbon Dioxide Level 26 21-32 mmol/L Anion Gap 9.0 3-11 mmol/L Blood Urea Nitrogen 28 7-18 mg/dl Creatinine 7.40 0.60-1.40 mg/dl Est Creatinine Clear Calc Drug Dose 11.5 ml/min Estimated GFR () 9.9 Estimated GFR (Non- 8.5 BUN/Creatinine Ratio 3.8 10-20 Random Glucose 79 70-99 mg/dl Calcium Level 8.0 8.5-10.1 mg/dl
[2016-07-25] MEDS: CINACALCET 30 MG TAB PO SCH (16:27)
[2016-07-25] MEDS: TRAZODONE HCL 50 MG TAB PO SCH (21:39)
[2016-07-25] MEDS: AMITRIPTYLINE HCL 10 MG TAB PO SCH (21:41)
[2016-07-25] MEDS: AMLODIPINE BESYLATE 5 MG TAB PO SCH (21:41)
[2016-07-26] VITALS (24 sets, daily range): BP systolic 118–157; BP diastolic 46–97; PULSE 64–84; TEMP 36.7–37; O2SAT 93–99
[2016-07-26] MEDS: HYDROmorphone INJ 1 MG/ML SYR IV PRN ×5 (02:12→19:45)
[2016-07-26] MEDS ORDERED: CEFAZOLIN 1000MG/55 ML D5W 55 ML IV SCH (06:00)
[2016-07-26] MEDS ORDERED: CEFAZOLIN IV 1,000 MG in DEXTROSE 5% 50ML 50 ML IV ONE (06:00)
[2016-07-26] MEDS: METOCLOPRAMIDE HCL 10 MG TAB PO SCH ×3 (06:15→15:42)
[2016-07-26 06:56] LABS: HEMATOCRIT 32.2 % (42-52); MEAN CELL VOLUME 93.3 fL (80-100); MEAN CORPUSCULAR HEMOGLOBIN 30.7 pg (25-34); MEAN CORPUSCULAR HGB CONC 32.9 g/dl (32-36); MEAN PLATELET VOLUME 10.3 fL (7.4-10.4); PLATELET COUNT 131 K/uL (130-400); RED BLOOD COUNT 3.45 M/uL (4.7-6.1); WHITE BLOOD COUNT 5.82 K/uL (4.8-10.8)
[2016-07-26] MEDS: LISINOPRIL 40 MG TAB PO SCH (07:02)
[2016-07-26] MEDS: LABETALOL HCL 200 MG TAB PO SCH ×2 (07:02→21:41)
[2016-07-26] MEDS: CLONIDINE HCL 0.1 MG TAB PO SCH ×3 (07:02→21:00)
[2016-07-26] MEDS: SERTRALINE HCL 50 MG TAB PO SCH (07:03)
[2016-07-26] MEDS: SEVELAMER HYDROCH 800 MG TAB PO SCH ×3 (07:04→15:42)
[2016-07-26] MEDS: ASPIRIN 81 MG ECTAB PO SCH (07:04)
[2016-07-26] MEDS: PANTOprazole SOD 40 MG TAB PO SCH ×2 (07:04→20:47)
[2016-07-26] MEDS: CHECK CLONIDINE PATCH PLACEMENT SCH ×2 (07:04→15:44)
[2016-07-26] MEDS: HEPARIN SOD 5000 UNIT/0.5 ML CARP SQ SCH ×2 (07:04→21:00)
[2016-07-26] MEDS: CHOLECALCIFEROL 1000 INTER.UNIT TAB PO SCH (07:04)
[2016-07-26] MEDS ORDERED: ALPRAZOLAM 0.5 MG TAB PO STA (07:09)
--- NOTE | 2016-07-26 07:37 | Nephrology Progress Note ---
Nephrology Progress Note Date of Service: Jul 26, 2016. Subjective 35 yo male who has chronic abdominal pain and n/v and labile hypertension and now dealing with hyperkalemia as well. k levels have improved. bp is better controlled. pt able to tolerate regular diet now. currently npo for fistula placement today. pt feels good. Objective Date Time Temp Pulse Resp B/P Pulse Ox O2 Delivery O2 Flow Rate FiO2 07/26/16 04:00 36.7 71 18 132/86 95 Room Air 07/26/16 04:00 Room Air 07/25/16 23:59 Room Air 07/25/16 23:25 37.1 74 18 135/81 94 Room Air 07/25/16 20:18 36.8 68 18 148/97 96 Room Air 07/25/16 20:00 Room Air 07/25/16 16:00 Room Air 07/25/16 15:32 36.6 76 20 136/88 93 Room Air 07/25/16 12:00 Room Air 07/25/16 11:21 36.4 69 22 131/85 97 Room Air 07/25/16 08:06 36.8 72 18 127/81 94 Room Air 07/25/16 08:00 Room Air Physical Exam: General-[id number] Eyes-no scleral icterus ENT-mmm Neck-supple Lungs-cta Heart-rrr Abdomen-bs+ s/nt/nd Extremities-no c/c/e Neuro-nonfocal Current Inpatient Medications Medications (Trade) Dose Ordered Sig/Betsy Route Start Time Stop Time Status Last Admin Dose Admin Heparin Sodium (Porcine) (Heparin Sq 5000 Unit/0.5ml) 5,000 unit Q12 SQ 07/23/16 23:00 08/22/16 22:59 07/24/16 07:45 5,000 UNIT Acetaminophen (Tylenol Tab) 650 mg Q4H PRN PO 07/23/16 17:30 08/22/16 17:29 Ondansetron HCl (Zofran Inj) 4 mg Q6H PRN IV 07/23/16 17:30 08/22/16 17:29 07/24/16 19:21 4 MG Hydralazine HCl (HydrALAZINE INJ) 10 mg Q6H PRN IV. 07/23/16 17:30 08/22/16 17:29 07/23/16 18:53 10 MG Amitriptyline HCl (Elavil Tab) 10 mg HS PO 07/23/16 21:00 08/22/16 20:59 07/25/16 21:41 10 MG Amlodipine Besylate (Norvasc Tab) 10 mg QPM PO 07/23/16 21:00 08/22/16 20:59 07/25/16 21:41 10 MG Aspirin (Ecotrin Tab) 81 mg QAM PO 07/24/16 09:00 08/23/16 08:59 07/25/16 08:40 81 MG Clonidine HCl (Lepxoigc-Byb-6 0.3mg/24hr Patch) 1 patch Quinn@0900 TD 07/28/16 09:00 08/27/16 08:59 Hydralazine HCl (Apresoline Tab) 100 mg TID PO 07/23/16 21:00 08/22/16 20:59 07/26/16 07:03 100 MG Labetalol HCl (Normodyne Tab) 200 mg BID PO 07/23/16 21:00 08/22/16 20:59 07/26/16 07:02 200 MG Lisinopril (Zestril Tab) 40 mg QAM PO 07/24/16 09:00 08/23/16 08:59 07/26/16 07:02 40 MG Metoclopramide HCl (Reglan Tab) 10 mg AC PO 07/24/16 07:00 08/23/16 07:59 07/25/16 16:25 10 MG Pantoprazole Sodium (Protonix Tab) 40 mg BID PO 07/23/16 21:00 08/22/16 20:59 07/25/16 21:40 40 MG Sertraline HCl (Zoloft Tab) 50 mg QAM PO 07/24/16 09:00 08/23/16 08:59 07/26/16 07:03 50 MG Sevelamer HCl (Renagel Tab) 3,200 mg TIDM PO 07/23/16 22:00 08/22/16 21:59 07/25/16 16:26 3,200 MG Trazodone HCl (Desyrel Tab) 50 mg HS PO 07/23/16 21:00 08/22/16 20:59 07/25/16 21:39 50 MG Cinacalcet (Sensipar) 30 mg DAILY@1700 PO 07/24/16 17:00 08/23/16 16:59 07/25/16 16:27 30 MG Clonidine HCl (Catapres Tab) 0.4 mg TID PO 07/23/16 21:00 08/22/16 20:59 07/26/16 07:02 0.4 MG Cholecalciferol (Vitamin D Tab) 3,000 inter.unit DAILY PO 07/24/16 09:00 08/23/16 08:59 07/25/16 08:40 3,000 INTER.UNIT Hydromorphone HCl (Dilaudid Inj) 0.5 mg Q4 PRN IV 07/24/16 00:00 08/07/16 00:00 07/26/16 06:15 0.5 MG Miscellaneous (Remove Clonidine Patch) 1 ea Quinn@0859 N/A 07/28/16 08:59 08/27/16 08:58 Miscellaneous Information 1 ea 1 ea QS N/A 07/24/16 00:00 08/23/16 00:00 07/26/16 07:04 1 EA Cefazolin Sodium (Ancef 1000mg/55 ml D5W) 55 ml @ 100 mls/hr PREOP IV 07/26/16 06:00 07/26/16 18:00 Last 24 Hours Test 07/26/16 06:20 White Blood Count 5.82 K/uL Red Blood Count 3.45 M/uL Hemoglobin 10.6 g/dL Hematocrit 32.2 % Mean Corpuscular Volume 93.3 fL Mean Corpuscular Hemoglobin 30.7 pg Mean Corpuscular Hemoglobin Concent 32.9 g/dl RDW Standard Deviation 49.0 fL RDW Coefficient of Variation 14.4 % Platelet Count 131 K/uL Mean Platelet Volume 10.3 fL Assessment & Plan ESRD-plan on dialysis this morning prior to fistula placement. currently npo x meds. volume status appears appropriate. pt with high potassium levels now and to do a food journal. there is also consideration of possible recirculation with the tunneled line leading to hyperkalemia. however, pt would prefer not to have catheter exchanged at this time if possible. pt able to be discharged from renal perspective once medically cleared.
[2016-07-26 07:46] LABS: BUN/CREATININE RATIO 3.8 (10-20); CALCIUM 7.4 mg/dl (8.5-10.1); POTASSIUM 4.9 mmol/L (3.5-5.1)
--- NOTE | 2016-07-26 10:28 | Progress Note ---
Progress Note Patient for creation of left antecubital basilic vein fistula. I have discussed the risks options and benefits of the procedure with the patient. The patient understands the risks options and benefits and agrees to the procedure. I have examined the patient, reviewed the History & Physical and in the interval since the performance of the History & Physical I have noted the following changes of clinical significance: No changes noted
[2016-07-26] MEDS ORDERED: LIDOCAINE HCL 2% 2 ML VIAL (20MG/ML) ONE (12:17)
[2016-07-26] MEDS ORDERED: PROPOFOL IV EMULSION 10 MG/ML 20 ML VIAL IV ONE (12:17)
[2016-07-26] MEDS ORDERED: FENTANYL CITRATE INJ 50 MCG/1 ML 2 ML VIAL ONE ×2 (12:21→14:10)
[2016-07-26] MEDS ORDERED: MIDAZOLAM HCL 1 MG/ML 2ML VIAL ONE ×2 (12:21→13:23)
[2016-07-26] MEDS ORDERED: SURGICEL ABSORB HEMOSTAT 2IN X 14IN TOP ONE (13:42)
[2016-07-26] MEDS ORDERED: HEPARIN SOD (PORCINE) 1000 UNIT/ML 10 ML VIAL FLUSH ONE (13:42)
[2016-07-26] MEDS ORDERED: MIX: 0.5% BUPIVACAINE W/EPI 1:200,000+1%LIDO 50:50 INJ ONE (13:42)
--- NOTE | 2016-07-26 13:42 | [facility] Post Operative Brief Note ---
Immediate Operative Summary Operative Date Jul 26, 2016. Pre-Operative Diagnosis End stage renal disease Post-Operative Diagnosis same as preop Procedure(s) Performed Left Upper Extremity Basilic Vein Arteriovenous Fistula Surgeon Dr. Aguirre Buttoner Surgeon(s) Olive Napier PA-C Estimated Blood Loss 20 Findings good thrill Specimens none Anesthesia MAC Complication(s) None Disposition Recovery Room / PACU
[2016-07-26] MEDS ORDERED: PATIENT'S ALLERGY INFO NEEDS ENTERED SCH (14:15)
[2016-07-26] MEDS ORDERED: ATROPINE SULFATE 0.1 MG/ML 5ML SYR IV PRN (14:15)
[2016-07-26] MEDS ORDERED: FENTANYL CITRATE INJ 50 MCG/1 ML 2 ML VIAL IV PRN (14:15)
[2016-07-26] MEDS ORDERED: EpHEDrine SULFATE INJ 50 MG/ML AMP IV PRN (14:15)
[2016-07-26] MEDS ORDERED: ONDANSETRON INJ 2 MG/ML 2 ML VIAL IV PRN (14:15)
--- NOTE | 2016-07-26 14:19 | Progress Note ---
Progress Note I assisted Dr Aguirre with Pablo Do's Left Antecubital basilic vein AV fistula creation on 07/26/16, d/t lack of resident availability.
--- NOTE | 2016-07-26 14:29 | Anesthesiology Progress Note ---
Anesthesia Post Op Note Date & Time Jul 26, 2016 at 14:28 Vital Signs Pain Intensity: 0 Vital Signs Past 12 Hours Date Time Temp Pulse Resp B/P Pulse Ox O2 Delivery O2 Flow Rate FiO2 07/26/16 14:25 65 12 137/100 95 Room Air 07/26/16 14:15 66 12 132/98 95 Room Air 07/26/16 14:08 36.8 71 16 132/98 98 Room Air 07/26/16 12:20 36.8 69 16 156/105 96 Room Air 07/26/16 12:00 Room Air 07/26/16 11:37 36.7 74 18 135/63 98 07/26/16 10:45 37.0 84 141/62 07/26/16 10:30 80 119/54 07/26/16 10:15 77 132/49 07/26/16 10:00 82 140/60 07/26/16 09:45 79 132/55 07/26/16 09:30 81 122/54 07/26/16 09:15 82 129/46 07/26/16 09:00 79 135/54 07/26/16 08:45 74 119/55 07/26/16 08:30 80 125/69 07/26/16 08:15 77 133/58 07/26/16 08:00 79 127/74 07/26/16 08:00 Room Air 07/26/16 07:45 76 133/69 07/26/16 07:30 81 139/76 07/26/16 07:20 37.0 84 141/62 07/26/16 04:00 36.7 71 18 132/86 95 Room Air 07/26/16 04:00 Room Air Notes Mental Status: alert / awake / arousable, participated in evaluation Pt Amnestic to Procedure: Yes Nausea / Vomiting: adequately controlled Pain: adequately controlled Airway Patency, RR, SpO2: stable & adequate BP & HR: stable & adequate Hydration State: stable & adequate Anesthetic Complications: no major complications apparent
[2016-07-26] MEDS: CINACALCET 30 MG TAB PO SCH (17:00)
--- NOTE | 2016-07-26 17:00 | Progress Note ---
Internal Med Progress Note Date of Service: Jul 26, 2016. Provider Documentation: SUBJECTIVE: Patient is interviewed and examined at bedside. Patient just returned after having the procedure. Denies any nausea, vomiting, abdominal pain and is tolerating diet. OBJECTIVE: Vital Signs-as noted below General: no apparent distress, Moderately built and nourished Eyes: EOMI, PERRLA Neck: Supple, No JVD, Trachea midline HEENT: Normocephalic/atraumatic CVS: S1, S2, + murmur Resp: Clear to auscultation bilaterally, normal breath sounds Abd: Soft, non tender, no guarding/rigidity/Organomegaly Neuro: No focal deficits Extremities: No cyanosis, clubbing, pedal edema, L UE AV Fistula in sutures Skin: dialysis catheter on left side of chest, warm, intact, no rash Psy: No issues Lab data as noted below. ASSESSMENT & PLAN: Patient is a 35 Yr male with PMH of ESRD on HD, Uremic gastroparesis, HTN, CAD, GERD, depression and anxiety who had multiple hospitalizations for hypertensive urgency, hyperkalemia and intractable abdominal pain, nausea and vomiting and had problems with chronic pancreatitis in the past presents with epigastric abd pain radiating to back associated with nausea, vomiting and inability to keep his medications. He was also found to have hyperkalemia of 6.7 with no EKG changes. ESRD on Hemodialysis: Dialysis on MWF Failed fistula attempts in the past Had HD prior to procedure Had Left Upper Extremity Basilic Vein Arteriovenous Fistula today POD#0 Appreciate Vascular surgery help Resume diet Hypertensive Urgency: Resolved Mild headache likely secondary to above- resolved Blood pressure controlled Continue PO hydralazine, clonidine oral and patch, lisinopril , Norvasc and labetalol IV hydralazine PRN Hyperkalemia: Resolved Unclear etiology. ? Recirculation with tunneled dialysis catheter No acute EKG changes s/p insulin, D50, calcium gluconate, and bicarb while in ED Got Hemodialysis yesterday HD per Nephrology Appreciate Nephrology help Monitor potassium levels Intractable Nausea/vomiting/epigastric abd pain: Resolved Likely secondary to Uremic gastroparesis Continue Reglan, Zofran PRN Tolerating diet currently CAD: S/P stent: Stable. Continue home medications GERD: Continue PPI Depression/Anxiety: Continue Zoloft DVT Px: Heparin SQ Disposition: Plan to discharge home tomorrow Vital Signs: Date Time Temp Pulse Resp B/P Pulse Ox O2 Delivery O2 Flow Rate FiO2 07/26/16 16:14 Room Air 07/26/16 16:00 36.7 67 18 130/84 98 Room Air 07/26/16 15:37 36.9 70 18 132/83 97 Room Air 07/26/16 14:54 36.7 64 14 135/82 98 Room Air 07/26/16 14:35 36.8 65 13 138/93 95 Room Air 07/26/16 14:25 65 12 137/100 95 Room Air 07/26/16 14:15 66 12 132/98 95 Room Air 07/26/16 14:08 36.8 71 16 132/98 98 Room Air 07/26/16 12:20 36.8 69 16 156/105 96 Room Air 07/26/16 12:00 Room Air 07/26/16 11:37 36.7 74 18 135/63 98 07/26/16 10:45 37.0 84 141/62 07/26/16 10:30 80 119/54 07/26/16 10:15 77 132/49 07/26/16 10:00 82 140/60 07/26/16 09:45 79 132/55 07/26/16 09:30 81 122/54 07/26/16 09:15 82 129/46 07/26/16 09:00 79 135/54 07/26/16 08:45 74 119/55 07/26/16 08:30 80 125/69 07/26/16 08:15 77 133/58 07/26/16 08:00 79 127/74 07/26/16 08:00 Room Air 07/26/16 07:45 76 133/69 07/26/16 07:30 81 139/76 07/26/16 07:20 37.0 84 141/62 07/26/16 04:00 36.7 71 18 132/86 95 Room Air 07/26/16 04:00 Room Air 07/25/16 23:59 Room Air 07/25/16 23:25 37.1 74 18 135/81 94 Room Air 07/25/16 20:18 36.8 68 18 148/97 96 Room Air 07/25/16 20:00 Room Air Lab Results: Results Past 24 Hours Test 07/26/16 06:20 Range/Units White Blood Count 5.82 4.8-10.8 K/uL Red Blood Count 3.45 4.7-6.1 M/uL Hemoglobin 10.6 14.0-18.0 g/dL Hematocrit 32.2 42-52 % Mean Corpuscular Volume 93.3 80-100 fL Mean Corpuscular Hemoglobin 30.7 25-34 pg Mean Corpuscular Hemoglobin Concent 32.9 32-36 g/dl RDW Standard Deviation 49.0 36.4-46.3 fL RDW Coefficient of Variation 14.4 11.5-14.5 % Platelet Count 131 130-400 K/uL Mean Platelet Volume 10.3 7.4-10.4 fL Sodium Level 137 136-145 mmol/L Potassium Level 4.9 3.5-5.1 mmol/L Chloride Level 103 98-107 mmol/L Carbon Dioxide Level 22 21-32 mmol/L Anion Gap 12.0 3-11 mmol/L Blood Urea Nitrogen 38 7-18 mg/dl Creatinine 10.00 0.60-1.40 mg/dl Est Creatinine Clear Calc Drug Dose 8.6 ml/min Estimated GFR () 6.9 Estimated GFR (Non- 5.9 BUN/Creatinine Ratio 3.8 10-20 Random Glucose 87 70-99 mg/dl Calcium Level 7.4 8.5-10.1 mg/dl
[2016-07-26] MEDS: HYDROCODONE/ACETAMOPHEN 5/325MG TAB PO PRN (18:37)
[2016-07-26] MEDS: AMLODIPINE BESYLATE 5 MG TAB PO SCH (21:42)
[2016-07-26] MEDS: AMITRIPTYLINE HCL 10 MG TAB PO SCH (21:42)
[2016-07-26] MEDS: TRAZODONE HCL 50 MG TAB PO SCH (21:42)
[2016-07-27] VITALS (17 sets, daily range): BP systolic 108–159; BP diastolic 60–97; PULSE 60–79; TEMP 36.4–37; O2SAT 95–97
[2016-07-27] MEDS: HYDROmorphone INJ 1 MG/ML SYR IV PRN (00:05)
[2016-07-27] MEDS: CHECK CLONIDINE PATCH PLACEMENT SCH ×3 (00:07→15:31)
[2016-07-27] MEDS: HYDROCODONE/ACETAMOPHEN 5/325MG TAB PO PRN ×3 (02:42→15:31)
[2016-07-27] MEDS: ALPRAZOLAM 0.5 MG TAB PO PRN ×3 (02:43→21:57)
[2016-07-27] MEDS: HYDROmorphone INJ 0.5 MG/0.5 ML SYR IV PRN ×5 (04:14→20:35)
[2016-07-27] MEDS: METOCLOPRAMIDE HCL 10 MG TAB PO SCH ×3 (07:00→16:32)
[2016-07-27 07:05] LABS: BUN/CREATININE RATIO 3.5 (10-20); CALCIUM 8.1 mg/dl (8.5-10.1); CREATININE 8.1 mg/dl (0.60-1.40); POTASSIUM 5.5 mmol/L (3.5-5.1)
[2016-07-27] MEDS: HEPARIN SOD 5000 UNIT/0.5 ML CARP SQ SCH ×2 (08:18→21:00)
[2016-07-27] MEDS: SERTRALINE HCL 50 MG TAB PO SCH (08:24)
[2016-07-27] MEDS: LISINOPRIL 40 MG TAB PO SCH (08:24)
[2016-07-27] MEDS: LABETALOL HCL 200 MG TAB PO SCH ×2 (08:25→21:56)
[2016-07-27] MEDS: CHOLECALCIFEROL 1000 INTER.UNIT TAB PO SCH (08:26)
[2016-07-27] MEDS: CLONIDINE HCL 0.1 MG TAB PO SCH ×3 (08:27→21:54)
[2016-07-27] MEDS: SEVELAMER HYDROCH 800 MG TAB PO SCH ×3 (08:29→16:32)
[2016-07-27] MEDS: PANTOprazole SOD 40 MG TAB PO SCH ×2 (08:30→21:57)
[2016-07-27] MEDS: ASPIRIN 81 MG ECTAB PO SCH (08:30)
[2016-07-27] MEDS ORDERED: HEPARIN SOD (PORCINE) 1000 UNIT/ML 10 ML VIAL IV SCH ×2 (11:30)
--- NOTE | 2016-07-27 12:51 | Nephrology Progress Note ---
Nephrology Progress Note Date of Service: Jul 27, 2016. Objective Date Time Temp Pulse Resp B/P Pulse Ox O2 Delivery O2 Flow Rate FiO2 07/27/16 11:44 36.5 69 18 154/91 96 Room Air 07/27/16 08:00 Room Air 07/27/16 07:58 36.4 68 16 132/85 95 Room Air 07/27/16 05:00 36.6 67 18 126/87 96 Room Air 07/27/16 04:00 Room Air 07/27/16 00:00 Room Air 07/26/16 23:08 36.8 77 18 157/91 93 Room Air 07/26/16 20:11 36.8 77 18 151/97 95 Room Air 07/26/16 20:00 Room Air 07/26/16 18:00 36.8 79 18 118/75 99 Room Air 07/26/16 17:00 36.8 74 18 121/76 99 Room Air 07/26/16 16:14 Room Air 07/26/16 16:00 36.7 67 18 130/84 98 Room Air 07/26/16 15:37 36.9 70 18 132/83 97 Room Air 07/26/16 14:54 36.7 64 14 135/82 98 Room Air 07/26/16 14:35 36.8 65 13 138/93 95 Room Air 07/26/16 14:25 65 12 137/100 95 Room Air 07/26/16 14:15 66 12 132/98 95 Room Air 07/26/16 14:08 36.8 71 16 132/98 98 Room Air Physical Exam: General-[] Eyes-[] ENT-[] Neck-[] Lungs-[] Heart-[] Abdomen-[] Extremities-[] Neuro-[] Current Inpatient Medications Medications (Trade) Dose Ordered Sig/Betsy Route Start Time Stop Time Status Last Admin Dose Admin Heparin Sodium (Porcine) (Heparin Sq 5000 Unit/0.5ml) 5,000 unit Q12 SQ 07/23/16 23:00 08/22/16 22:59 07/24/16 07:45 5,000 UNIT Acetaminophen (Tylenol Tab) 650 mg Q4H PRN PO 07/23/16 17:30 08/22/16 17:29 Ondansetron HCl (Zofran Inj) 4 mg Q6H PRN IV 07/23/16 17:30 08/22/16 17:29 07/24/16 19:21 4 MG Hydralazine HCl (HydrALAZINE INJ) 10 mg Q6H PRN IV. 07/23/16 17:30 08/22/16 17:29 07/23/16 18:53 10 MG Amitriptyline HCl (Elavil Tab) 10 mg HS PO 07/23/16 21:00 08/22/16 20:59 07/26/16 21:42 10 MG Amlodipine Besylate (Norvasc Tab) 10 mg QPM PO 07/23/16 21:00 08/22/16 20:59 07/26/16 21:42 10 MG Aspirin (Ecotrin Tab) 81 mg QAM PO 07/24/16 09:00 08/23/16 08:59 07/27/16 08:30 81 MG Clonidine HCl (Hibachri-Muh-1 0.3mg/24hr Patch) 1 patch Quinn@0900 TD 07/28/16 09:00 08/27/16 08:59 Hydralazine HCl (Apresoline Tab) 100 mg TID PO 07/23/16 21:00 08/22/16 20:59 07/27/16 08:28 100 MG Labetalol HCl (Normodyne Tab) 200 mg BID PO 07/23/16 21:00 08/22/16 20:59 07/27/16 08:25 200 MG Lisinopril (Zestril Tab) 40 mg QAM PO 07/24/16 09:00 08/23/16 08:59 07/27/16 08:24 40 MG Metoclopramide HCl (Reglan Tab) 10 mg AC PO 07/24/16 07:00 08/23/16 07:59 07/27/16 11:26 10 MG Pantoprazole Sodium (Protonix Tab) 40 mg BID PO 07/23/16 21:00 08/22/16 20:59 07/27/16 08:30 40 MG Sertraline HCl (Zoloft Tab) 50 mg QAM PO 07/24/16 09:00 08/23/16 08:59 07/27/16 08:24 50 MG Sevelamer HCl (Renagel Tab) 3,200 mg TIDM PO 07/23/16 22:00 08/22/16 21:59 07/27/16 11:26 3,200 MG Trazodone HCl (Desyrel Tab) 50 mg HS PO 07/23/16 21:00 08/22/16 20:59 07/26/16 21:42 50 MG Cinacalcet (Sensipar) 30 mg DAILY@1700 PO 07/24/16 17:00 08/23/16 16:59 07/26/16 17:00 30 MG Clonidine HCl (Catapres Tab) 0.4 mg TID PO 07/23/16 21:00 08/22/16 20:59 07/27/16 08:27 0.4 MG Cholecalciferol (Vitamin D Tab) 3,000 inter.unit DAILY PO 07/24/16 09:00 08/23/16 08:59 07/27/16 08:26 3,000 INTER.UNIT Miscellaneous (Remove Clonidine Patch) 1 ea Quinn@0859 N/A 07/28/16 08:59 08/27/16 08:58 Miscellaneous Information (Check Clonidine Patch Placement) 1 ea QS N/A 07/24/16 00:00 08/23/16 00:00 07/27/16 08:28 1 EA Acetaminophen/ Hydrocodone Bitart (Kimball 5/325 Tab) `1-2 TABS FOR MODER... Q4H PRN PO 07/26/16 13:45 08/09/16 13:44 07/27/16 11:24 2 TAB Alprazolam (Xanax Tab) 0.5 mg HS PRN PO 07/26/16 22:45 08/25/16 22:44 07/27/16 02:43 0.5 MG Hydromorphone HCl (Dilaudid Inj) 0.5 mg Q4 PRN IV 07/27/16 04:15 08/10/16 04:14 07/27/16 12:31 0.5 MG Heparin Sodium (Porcine) (Heparin Iv Bolus) 1,000 unit ONE IV 07/27/16 11:30 07/27/16 18:00 Heparin Sodium (Porcine) (Heparin Iv Bolus) 400 unit Q1H IV 07/27/16 11:30 07/27/16 18:00 Last 24 Hours Test 07/27/16 05:51 Sodium Level 134 mmol/L Potassium Level 5.5 mmol/L Chloride Level 103 mmol/L Carbon Dioxide Level 23 mmol/L Anion Gap 8.0 mmol/L Blood Urea Nitrogen 29 mg/dl Creatinine 8.10 mg/dl Est Creatinine Clear Calc Drug Dose 10.3 ml/min Estimated GFR () 8.8 Estimated GFR (Non- 7.6 BUN/Creatinine Ratio 3.5 Random Glucose 83 mg/dl Calcium Level 8.1 mg/dl Assessment & Plan 35 yo male who has chronic abdominal pain and n/v and labile hypertension and now dealing with hyperkalemia as well. K climbing again despite hd yesterday; has maturing AVF ESRD w/ hyperkalemia -2hr tx today > not that K too high today but likely to be unacceptably high by next tx 07/29; orders in for 2 hr tx later today -will order recirc studies and consideration of veltassa at outpt unit -has maturing avf -ok to d/c home thereafter care coordinated w/ Dr Ross
--- NOTE | 2016-07-27 15:58 | Progress Note ---
Internal Med Progress Note Date of Service: Jul 27, 2016. Provider Documentation: SUBJECTIVE: Patient is interviewed and examined at bedside. Patient complains of left UE pain and swelling at the site of the procedure. Denies any other symptoms. OBJECTIVE: Vital Signs-as noted below General: no apparent distress, Moderately built and nourished Eyes: EOMI, PERRLA Neck: Supple, No JVD, Trachea midline HEENT: Normocephalic/atraumatic CVS: S1, S2, + murmur Resp: Clear to auscultation bilaterally, normal breath sounds Abd: Soft, non tender, no guarding/rigidity/Organomegaly Neuro: No focal deficits Extremities: No cyanosis, clubbing, pedal edema, L UE AV Fistula in sutures Skin: dialysis catheter on left side of chest, warm, intact, no rash Psy: No issues Lab data as noted below. ASSESSMENT & PLAN: Patient is a 35 Yr male with PMH of ESRD on HD, Uremic gastroparesis, HTN, CAD, GERD, depression and anxiety who had multiple hospitalizations for hypertensive urgency, hyperkalemia and intractable abdominal pain, nausea and vomiting and had problems with chronic pancreatitis in the past presents with epigastric abd pain radiating to back associated with nausea, vomiting and inability to keep his medications. He was also found to have hyperkalemia of 6.7 with no EKG changes. ESRD on Hemodialysis: Dialysis on MWF Failed fistula attempts in the past S/P Left Upper Extremity Basilic Vein Arteriovenous Fistula POD# 1 Appreciate Vascular surgery help Tolerating renal diet Potassium level: 5.5 today, planned for HD today Hypertensive Urgency: Resolved Mild headache likely secondary to above- resolved Blood pressure controlled Continue PO hydralazine, clonidine oral and patch, lisinopril , Norvasc and labetalol IV hydralazine PRN Hyperkalemia: Unclear etiology. ? Recirculation with tunneled dialysis catheter No acute EKG changes s/p insulin, D50, calcium gluconate, and bicarb while in ED Planned for Hemodialysis today as Potassium levels 5.5 HD per Nephrology Appreciate Nephrology help Monitor potassium levels Intractable Nausea/vomiting/epigastric abd pain: Resolved Likely secondary to Uremic gastroparesis Continue Reglan, Zofran PRN Tolerating diet CAD: S/P stent: Stable. Continue home medications GERD: Continue PPI Depression/Anxiety: Continue Zoloft DVT Px: Heparin SQ Disposition: Plan to discharge home in AM if stable Vital Signs: Date Time Temp Pulse Resp B/P Pulse Ox O2 Delivery O2 Flow Rate FiO2 07/27/16 15:45 36.4 71 18 159/94 97 Room Air 07/27/16 12:00 Room Air 07/27/16 11:44 36.5 69 18 154/91 96 Room Air 07/27/16 08:00 Room Air 07/27/16 07:58 36.4 68 16 132/85 95 Room Air 07/27/16 05:00 36.6 67 18 126/87 96 Room Air 07/27/16 04:00 Room Air 07/27/16 00:00 Room Air 07/26/16 23:08 36.8 77 18 157/91 93 Room Air 07/26/16 20:11 36.8 77 18 151/97 95 Room Air 07/26/16 20:00 Room Air 07/26/16 18:00 36.8 79 18 118/75 99 Room Air 07/26/16 17:00 36.8 74 18 121/76 99 Room Air 07/26/16 16:14 Room Air 07/26/16 16:00 36.7 67 18 130/84 98 Room Air Lab Results: Results Past 24 Hours Test 07/27/16 05:51 Range/Units Sodium Level 134 136-145 mmol/L Potassium Level 5.5 3.5-5.1 mmol/L Chloride Level 103 98-107 mmol/L Carbon Dioxide Level 23 21-32 mmol/L Anion Gap 8.0 3-11 mmol/L Blood Urea Nitrogen 29 7-18 mg/dl Creatinine 8.10 0.60-1.40 mg/dl Est Creatinine Clear Calc Drug Dose 10.3 ml/min Estimated GFR () 8.8 Estimated GFR (Non- 7.6 BUN/Creatinine Ratio 3.5 10-20 Random Glucose 83 70-99 mg/dl Calcium Level 8.1 8.5-10.1 mg/dl
[2016-07-27] MEDS: CINACALCET 30 MG TAB PO SCH (16:31)
[2016-07-27] MEDS: AMITRIPTYLINE HCL 10 MG TAB PO SCH (21:55)
[2016-07-27] MEDS: AMLODIPINE BESYLATE 5 MG TAB PO SCH (21:55)
[2016-07-27] MEDS: TRAZODONE HCL 50 MG TAB PO SCH (21:56)
[2016-07-28] MEDS: CHECK CLONIDINE PATCH PLACEMENT SCH ×2 (00:03→08:34)
[2016-07-28] MEDS: HYDROmorphone INJ 0.5 MG/0.5 ML SYR IV PRN ×2 (01:01→05:17)
[2016-07-28 03:58] VITALS: BP 144/85; PULSE 72; TEMP 36.9; O2SAT 96
[2016-07-28] MEDS: METOCLOPRAMIDE HCL 10 MG TAB PO SCH ×2 (07:00→09:45)
[2016-07-28 07:35] VITALS: BP 128/79; PULSE 77; TEMP 36.9; O2SAT 97
[2016-07-28 07:55] LABS: BUN/CREATININE RATIO 2.9 (10-20); CALCIUM 7.6 mg/dl (8.5-10.1); CREATININE 7.2 mg/dl (0.60-1.40); POTASSIUM 4.9 mmol/L (3.5-5.1)
[2016-07-28] MEDS: SEVELAMER HYDROCH 800 MG TAB PO SCH (08:37)
[2016-07-28] MEDS: HYDROCODONE/ACETAMOPHEN 5/325MG TAB PO PRN (08:37)
[2016-07-28] MEDS: LABETALOL HCL 200 MG TAB PO SCH (08:38)
[2016-07-28] MEDS: SERTRALINE HCL 50 MG TAB PO SCH (08:38)
[2016-07-28] MEDS: HEPARIN SOD 5000 UNIT/0.5 ML CARP SQ SCH (08:39)
[2016-07-28] MEDS: PANTOprazole SOD 40 MG TAB PO SCH (08:39)
[2016-07-28] MEDS: CHOLECALCIFEROL 1000 INTER.UNIT TAB PO SCH (08:39)
[2016-07-28] MEDS: CLONIDINE HCL 0.1 MG TAB PO SCH (08:40)
[2016-07-28] MEDS: ASPIRIN 81 MG ECTAB PO SCH (08:40)
[2016-07-28] MEDS: LISINOPRIL 40 MG TAB PO SCH (08:41)
[2016-07-28] MEDS ORDERED: CLONIDINE HCL 0.3 MG/24 HR TRANSDERM SYS TD SCH (09:00)
--- NOTE | 2016-07-28 09:39 | Progress Note ---
Internal Med Progress Note Date of Service: Jul 28, 2016. Provider Documentation: SUBJECTIVE: Patient is interviewed and examined at bedside. Complains of pain at the procedure site. Swelling is improving. Denies any chest pain, SOB, nausea, vomiting, abd pain. OBJECTIVE: Vital Signs-as noted below General: no apparent distress, Moderately built and nourished Eyes: EOMI, PERRLA Neck: Supple, No JVD, Trachea midline HEENT: Normocephalic/atraumatic CVS: S1, S2, + murmur Resp: Clear to auscultation bilaterally, normal breath sounds Abd: Soft, non tender, no guarding/rigidity/Organomegaly Neuro: No focal deficits Extremities: No cyanosis, clubbing, pedal edema, L UE AV Fistula in sutures Skin: dialysis catheter on left side of chest, warm, intact, no rash Psy: No issues Lab data as noted below. ASSESSMENT & PLAN: Patient is a 35 Yr male with PMH of ESRD on HD, Uremic gastroparesis, HTN, CAD, GERD, depression and anxiety who had multiple hospitalizations for hypertensive urgency, hyperkalemia and intractable abdominal pain, nausea and vomiting and had problems with chronic pancreatitis in the past presents with epigastric abd pain radiating to back associated with nausea, vomiting and inability to keep his medications. He was also found to have hyperkalemia of 6.7 with no EKG changes. 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 ? Recirculation with tunneled dialysis catheter No acute EKG changes s/p insulin, D50, calcium gluconate, and bicarb while in ED HD per Nephrology Appreciate Nephrology help Monitor potassium levels Recirculation studies and consideration of veltassa as outpatient Intractable Nausea/vomiting/epigastric abd pain: Resolved Likely secondary to Uremic gastroparesis Continue Reglan, Zofran PRN Tolerating diet CAD: S/P stent: Stable. Continue home medications GERD: Continue PPI Depression/Anxiety: Continue Zoloft DVT Px: Heparin SQ Disposition: Plan to discharge home today Vital Signs: Date Time Temp Pulse Resp B/P Pulse Ox O2 Delivery O2 Flow Rate FiO2 07/28/16 08:00 Room Air 07/28/16 07:35 36.9 77 16 128/79 97 Room Air 07/28/16 04:00 Room Air 07/28/16 03:58 36.9 72 18 144/85 96 Room Air 07/28/16 00:00 Room Air 07/27/16 23:35 37.0 79 18 138/89 97 Room Air 07/27/16 20:00 Room Air 07/27/16 19:48 36.6 75 18 129/86 97 Room Air 07/27/16 19:32 76 125/85 07/27/16 19:13 36.9 73 140/92 07/27/16 18:45 64 108/60 07/27/16 18:30 77 129/86 07/27/16 18:15 73 128/83 07/27/16 18:00 70 121/85 07/27/16 17:45 60 124/90 07/27/16 17:30 69 139/94 07/27/16 17:15 66 141/97 07/27/16 17:10 70 126/86 07/27/16 17:01 36.9 66 131/92 07/27/16 16:00 Room Air 07/27/16 15:45 36.4 71 18 159/94 97 Room Air 07/27/16 12:00 Room Air 07/27/16 11:44 36.5 69 18 154/91 96 Room Air Lab Results: Results Past 24 Hours Test 07/28/16 06:41 Range/Units Sodium Level 135 136-145 mmol/L Potassium Level 4.9 3.5-5.1 mmol/L Chloride Level 103 98-107 mmol/L Carbon Dioxide Level 21 21-32 mmol/L Anion Gap 11.0 3-11 mmol/L Blood Urea Nitrogen 21 7-18 mg/dl Creatinine 7.20 0.60-1.40 mg/dl Est Creatinine Clear Calc Drug Dose 11.7 ml/min Estimated GFR () 10.2 Estimated GFR (Non- 8.8 BUN/Creatinine Ratio 2.9 10-20 Random Glucose 109 70-99 mg/dl Calcium Level 7.6 8.5-10.1 mg/dl
--- NOTE | 2016-07-28 10:03 | Discharge Instructions ---
Discharge Instructions Admission Reason for Admission: Hyperkalemia, Hypertensive Urgency Discharge Discharge Diagnosis / Problem: Hyperkalemia, Hypertensive Urgency, Uremic Gastroparesis Discharge Goals Goal(s): Decrease discomfort, Improve function Activity Recommendations Activity Limitations: resume your previous activity . Instructions / Follow-Up Instructions / Follow-Up Follow up with on 07/30/16 at 11.50am Follow up with on 08/16/16 at 1:40pm Also please call on 07/29/16 to for an appointment for suture removal Avoid high potassium foods as advised Get recirculation studies as out patient with Current Hospital Diet Patient's current hospital diet: Renal Diet Discharge Diet Recommended Diet: Renal Diet Procedures Procedures Performed: Left Upper Extremity Basilic Vein Arteriovenous Fistula Creation Pending Studies Studies pending at discharge: no Laboratory Results Lipid Panel Test 06/06/16 05:33 Range/Units Triglycerides Level 291 H 0-150 mg/dl Cholesterol Level 179 0-200 mg/dl HDL Cholesterol 34 mg/dl Cholesterol/HDL Ratio 5.3 LDL Cholesterol, Calculated 87 mg/dl Medical Emergencies . Who to Call and When: Medical Emergencies: If at any time you feel your situation is an emergency, please call 911 immediately. . Non-Emergent Contact Non-Emergency issues call your: Primary Care Provider, Balloon Pilot Call Non-Emergent contact if: you have a fever, wound has increased drainage, wound has increased redness, wound has increased pain . . "Provider Documentation" section prepared by Asif Steel. VTE Core Measure Inpt VTE Proph given/why not?: Unfractionated heparin SQ
[2016-07-28 10:21] VITALS: BP 128/79; PULSE 77; TEMP 36.9; O2SAT 97
--- NOTE | 2016-07-28 21:06 | Discharge Summary ---
Discharge Summary Admission Date: Jul 23, 2016 at 17:28 Discharge Date: Jul 28, 2016 Discharge Disposition: Home Principal Diagnosis: Hyperkalemia, Hypertensive Urgency Secondary Diagnoses/Problems: Uremic gastroparesis CAD GERD ESRD ON HD Procedures: Left Upper Extremity Basilic Vein Arteriovenous Fistula procedure CXR: No acute cardiopulmonary process. No evidence for bowel obstruction. No change from the prior study. Pending Studies/Follow-Up: Follow up with PCP, Vascular surgery and Nephrology Medication Reconciliation Continued Medications: Alprazolam (Xanax) 0.5 Mg Tab 0.5 MG PO UD BEFORE DIALYSIS Amitriptyline HCl (Amitriptyline HCl) 10 Mg Tab 10 MG PO HS Amlodipine (Norvasc) 10 Mg Tab 10 MG PO QPM Aspirin (Aspirin Ec) 81 Mg Tab 81 MG PO QAM Calcium Carbonate (Tums) 500 Mg Chew 500 MG PO DAILY PRN for heartburn Cholecalciferol (Vitamin D3) 1,000 Unit Tab 3000 UNITS PO DAILY for 30 Days, TAB 5 Refills Cinacalcet (Sensipar) 30 Mg Tab 30 MG PO UD, TAB WITH SUPPER Clonidine Hcl (Catapres) 0.2 Mg Tab 0.4 MG PO TID Clonidine Hcl (Clonidine Hcl) 0.3 Mg/24 Hr Dis 1 PATCH EXT WK PATCH IS CHANGED ON SUNDAYS Hydralazine Hcl (Apresoline) 100 Mg Tab 1 TAB PO TID for 30 Days, #90 TAB 5 Refills Labetalol HCl (Labetalol HCl) 200 Mg Tab 200 MG PO BID Lisinopril (Zestril) 40 Mg Tab 1 TAB PO QAM, TAB 5 Refills Metoclopramide (Reglan) 10 Mg Tab 10 MG PO AC Pantoprazole (Protonix) 40 Mg Tab 40 MG PO BID, #30 TAB Sertraline (Zoloft) 50 Mg Tab 50 MG PO QAM, TAB Sevelamer Hydroch (Renagel) 800 Mg Tab 3200 MG PO TIDM Trazodone Hcl (Trazodone) 50 Mg Tab 50 MG PO HS, TAB Admission Information HPI (per Admitting provider): 35 year old male who presents to the ER with abdominal pain. Patient is well known to our service and has had frequent admissions for intractable abdominal pain and hypertensive urgency. Patient's most recent admission was 07/14 - . Patient was evaluated by GI who felt as though patient's symptoms were secondary to uremic gastroparesis. Patient improved with conservative measures and was discharged home with consideration to have outpatient gastric emptying study completed. Patient reports that around 0100 he developed epigastric pain that was radiating to his back. He describes this as his typical pain he has been getting. He reports associated nausea and vomiting. He was unable to keep his medications down. No diarrhea. He denies hematemesis or coffee ground emesis. Patient did go to dialysis yesterday and had a full treatment. Patient denies fever or chills. No chest pain or shortness of breath. He denies lightheadedness or dizziness. He reports a mild headache and denies blurred vision. In the ER, patient is found to have K+ 6.7. No EKG changes are noted. Patient was given insulin, D50, calcium gluconate, and bicarb. Nephrology was called who has arranged for dialysis tonight. General: no apparent distress Eyes: EOMI, PERRLA Neck: Suplle, No JVD, Trachea midline CVS: NSR, s1, s1, No murmur Resp: CTA, normal breath sounds Abd: Mild Epigastric and RUQ abd tender, soft, no guarding/rigidity Neuro: No focal deficits Extremities: No cyanosis, clubbing, pedal edema Skin: HD catheter on left side of chest, warm, intact, no rash Psy: No issues Hospital Course Patient is a 35 Yr male with PMH of ESRD on HD, Uremic gastroparesis, HTN, CAD, GERD, depression and anxiety who had multiple hospitalizations for hypertensive urgency, hyperkalemia and intractable abdominal pain, nausea and vomiting and had problems with chronic pancreatitis in the past presents with epigastric abd pain radiating to back associated with nausea, vomiting and inability to keep his medications. He was also found to have hyperkalemia of 6.7 with no EKG changes. Patient was thought to have recurrent hyperkalemia likely secondary to recirculation with tunneled dialysis catheter. Patient underwent HD per nephrology recommendations. Also underwent Left Upper Extremity Basilic Vein Arteriovenous Fistula procedure. Patient symptoms resolved and he improved clinically and was discharged homer in stable condition. ESRD on Hemodialysis: Dialysis on MWF Failed fistula attempts in the past S/P Left Upper Extremity Basilic Vein Arteriovenous Fistula POD# 2 Appreciate Vascular surgery help Tolerating renal diet Potassium level: 4.9 today Plan to DC home and follow up with his home health aid for recirculation studies and consideration of veltassa as outpatient Hypertensive Urgency: Resolved Mild headache likely secondary to above- resolved Blood pressure controlled Continue PO hydralazine, clonidine oral and patch, lisinopril , Norvasc and labetalol IV hydralazine PRN Hyperkalemia: Resolved Unclear etiology. ? Recirculation with tunneled dialysis catheter No acute EKG changes s/p insulin, D50, calcium gluconate, and bicarb while in ED HD per Nephrology Appreciate Nephrology help Monitor potassium levels Recirculation studies and consideration of veltassa as outpatient Intractable Nausea/vomiting/epigastric abd pain: Resolved Likely secondary to Uremic gastroparesis Continue Reglan, Zofran PRN Tolerating diet CAD: S/P stent: Stable. Continue home medications GERD: Continue PPI Depression/Anxiety: Continue Zoloft DVT Px: Heparin SQ Disposition: Plan to discharge home today Total time spent on discharge = This includes examination of the patient, discharge planning, medication reconciliation, and communication with other providers. Discharge Instructions Discharge Instructions Admission Reason for Admission: Hyperkalemia, Hypertensive Urgency Discharge Discharge Diagnosis / Problem: Hyperkalemia, Hypertensive Urgency, Uremic Gastroparesis Discharge Goals Goal(s): Decrease discomfort, Improve function Activity Recommendations Activity Limitations: resume your previous activity . Instructions / Follow-Up Instructions / Follow-Up Follow up with on 07/30/16 at 11.50am Follow up with on 08/16/16 at 1:40pm Also please call on 07/29/16 to for an appointment for suture removal Avoid high potassium foods as advised Get recirculation studies as out patient with Current Hospital Diet Patient's current hospital diet: Renal Diet Discharge Diet Recommended Diet: Renal Diet Procedures Procedures Performed: Left Upper Extremity Basilic Vein Arteriovenous Fistula Creation Pending Studies Studies pending at discharge: no Laboratory Results Lipid Panel Test 06/06/16 05:33 Range/Units Triglycerides Level 291 H 0-150 mg/dl Cholesterol Level 179 0-200 mg/dl HDL Cholesterol 34 mg/dl Cholesterol/HDL Ratio 5.3 LDL Cholesterol, Calculated 87 mg/dl Medical Emergencies . Who to Call and When: Medical Emergencies: If at any time you feel your situation is an emergency, please call 911 immediately. . Non-Emergent Contact Non-Emergency issues call your: Primary Care Provider, Quality Assurance Associate Call Non-Emergent contact if: you have a fever, wound has increased drainage, wound has increased redness, wound has increased pain . . "Provider Documentation" section prepared by Asif Steel. VTE Core Measure Inpt VTE Proph given/why not?: Unfractionated heparin SQ
--- NOTE | 2016-08-26 12:05 | OPERATIVE REPORT ---
DATE OF OPERATION: 07/26/2016 PREOPERATIVE DIAGNOSIS: Endstage renal disease. POSTOPERATIVE DIAGNOSIS: Same. PROCEDURE: Left upper extremity basilic vein arteriovenous fistula. SURGEON: Dr. Aguirre. KITCHEN DESIGNER: Olive Napier PA-C. ANESTHETIC: MAC. PROCEDURE INDICATIONS: The patient is a 35-year-old male in need of a permanent access. He does have a basilic vein in the left arm which is usable. He does have failed accesses in the past. He understood the risks, options and benefits and agreed to have this procedure. OPERATION AND FINDINGS: The patient was taken to the operating room and placed in supine position. After left arm was prepped and draped in a sterile manner, local anesthetic was administered. A transverse incision was made just below the antecubital crease. Dissection was carried down to where the basilic vein was identified. It was freed up distally. It was a fairly good caliber. It was ligated and divided distally. Next, the brachial artery was identified at that level. It was of good size and a good pulse and with minimal disease. It was then clamped proximally and distally. Longitudinal arteriotomy was then made. The basilic vein was swung over and anastomosed to the brachial artery using 7-0 Prolene suture in the usual vascular fashion. Prior to completing the closure, backbleeding and forward bleeding was allowed to occur and final few sutures were placed and securely tied. Clamps were removed, excellent flow was seen and palpable thrill was felt in the fistula. After adequate hemostasis was noted of the wound, the wound was closed in the usual fashion using running 3-0 Vicryl suture for subcutaneous layer and running 4-0 subcuticular Vicryl suture for the skin edges and Dermabond for a dressing. The patient left the operating room in satisfactory condition having tolerated the procedure well. Olive Napier assisted due to lack of resident availability. I attest to the content of the Intraoperative Record and any orders documented therein. Any exceptio ns are noted below.
[2016-09-07] MEDS ORDERED: HYDR-4717 PO (15:29)
[2016-10-29] MEDS ORDERED: OXYC-57 PO (10:17)
[2016-11-21] MEDS ORDERED: KFZAV1 IV (09:06)
[2016-11-21] MEDS ORDERED: OXYC7.5T65 PO (10:52)
== END 2016-07-28 10:42 | disposition home or self-care (01) | DRG 981 ==
LOC: ENRESERVDT → ENRESERVTM → EDBD 13:18 → C.EDC 13:19 → C.2T 17:28
PROVIDERS: ADMIT Internal Medicine; ATTEND Internal Medicine
PROC: 041L0ZS Bypass Left Femoral Artery to Lower Extremity Vein, Open Approach (ICD-10-PCS; principal; 2016-07-26 11:30)
DX: K31.84 Gastroparesis (principal); N18.6 End stage renal disease; I13.11 Hypertensive heart and chronic kidney disease without heart failure, with stage 5 chronic kidney disease, or end stage renal disease; I25.10 Atherosclerotic heart disease of native coronary artery without angina pectoris; K21.9 Gastro-esophageal reflux disease without esophagitis; Z99.2 Dependence on renal dialysis; F32.9 Major depressive disorder, single episode, unspecified; F41.9 Anxiety disorder, unspecified; E87.5 Hyperkalemia; Z87.891 Personal history of nicotine dependence

== ENCOUNTER 2016-09-06 11:12 | Observation (INO) | payer OTHER ==
[~2016-09-06] VITALS: Ht 167.6 cm; Wt 62.9 kg
[2016-09-06] VITALS (23 sets, daily range): BP systolic 80–171; BP diastolic 54–119; PULSE 68–94; TEMP 36.4–37; O2SAT 92–97; Ht 167.6 cm; Wt 62.9 kg
--- NOTE | 2016-09-06 05:57 | History and Physical ---
History & Physical CC: End stage renal disease, malfunctioning permcath HPI: Mr. Do states that he received his first kidney transplant at the age of 3. He said it functioned for over 20 years before it failed, then he went on hemodialysis. He states that he then underwent another renal transplant, and that one lasted only two years before failing on him. He states that he previously had two fistulas created in his left arm, the first one at his wrist , the second one in his left upper arm cephalic vein. 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 He denies any other complaints at this time, including headaches, fevers, chills, dizziness, chest pain, shortness of breath, abdominal pain, nausea, vomiting, diarrhea, constipation, dysuria, hematuria, rest pain, claudication, nonhealing wounds or ulcers or other complaints. He does state that he is interested in continuous ambulatory peritoneal dialysis at home; however, he has not gone through the training for that as of yet. A vein mapping ultrasound performed prior to today 's appointment demonstrates a usable left upper arm basilic vein for fistula creation. When he came for surgery he was found to have an infected permcath. This was removed. He then had an insertion of a new permcath. This ran well at first but now has difficulty with running through both ports. ALLERGIES: MINOXIDIL AND TERAZOSIN. HOME MEDICATIONS: Reconciled in the chart and include the following; amitriptyline, Benicar, clonidine patch, Coreg, hydralazine, lisinopril, Norvasc , pantoprazole, Reglan, Sensipar, and vitamin D3. PAST MEDICAL HISTORY: Positive for hypertension, end-stage renal disease on hemodialysis, gastroesophageal reflux disease. PAST SURGICAL HISTORY: Positive for renal transplant in 1984, renal transplant in 2012, creation of an arteriovenous fistula x2 in the left arm and insertion of a tunneled dialysis catheter. SOCIAL HISTORY: Positive for past history of tobacco use. The patient states he quit approximately 1 month ago. FAMILY HISTORY: Noncontributory. REVIEW OF SYSTEMS: Negative for fatigue, fevers, sweats, weight loss, exercise intolerance, abnormal moles or rashes, vision changes or photophobia, ear pain, sinus problems or sore throat, cough, shortness of breath, hemoptysis or wheezing, chest pain, palpitations, edema or syncope, abdominal pain, nausea, vomiting, diarrhea, constipation, dysuria, hematuria, muscle weakness, headaches , dizziness, numbness or seizures. PHYSICAL EXAMINATION: His vital signs are as follows; blood pressure 156/92 with a heart rate of 81, oxygen 98% on room air. Constitutional: In general, patient is a mildly chronically ill-appearing middle-aged male in no acute distress. He ambulates without assistance and is active, alert and oriented x4 with normal recent and remote memory. His head is normocephalic, atraumatic. Eyes are EOMI. His ENMT exam demonstrates no hearing loss, rhinorrhea or pharyngeal erythema. His neck is supple, nontender with midline trachea without masses or crepitus. Lung exam demonstrates no dyspnea. They are clear to auscultation bilaterally, although somewhat decreased throughout. His cardiovascular exam demonstrates a nondisplaced apical impulse with a regular rate and rhythm without murmurs, lifts, heaves, thrills or gallops. Peripheral pulses are full and equal in all extremities unless otherwise noted, specifically they are normal in his carotid, brachial, radial and femoral pulses. His bilateral lower extremities distal pulses are +2. He has brisk capillary refill and no sign of distal ischemia. The patient demonstrates no bruits in his carotid, abdominal or femoral area. His abdomen is soft, nontender with normoactive bowel sounds in all 4 quadrants without guarding or rebound. There is no flank or CVA tenderness. His musculoskeletal exam demonstrates normal tone and strength for age. His bilateral upper extremities demonstrate no cyanosis, edema, clubbing, varicosities or ulcers. His bilateral lower extremities demonstrate no cyanosis, edema, clubbing, varicosities or ulcers. Patient's left arm does demonstrate surgical incisions on his wrist as well as an antecubital surgical incision and a [id number] upper arm surgical incision as well. 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 Neurologic: Patient is grossly intact cranial nerves and grossly intact sensation. ASSESSMENT AND PLAN: End-stage renal disease on hemodialysis. Malfunctioning permcath Plan: Patient is admitted for an exchange of his permcath. I have discussed the risks options and benefits of the procedure with the patient. The patient understands the risks options and benefits and agrees to the procedure.
[~2016-09-06 11:12] MED LIST changes: +CEFAZOLIN 1000MG/55 ML D5W IV SCH; +D5W AND 1/4NSS 1,000 ML IV SCH
[2016-09-06] MEDS ORDERED: HEPARIN SOD (PORCINE) 5000 UNIT/ML 1 ML VIAL ONE ×2 (11:34→12:53)
[2016-09-06] MEDS ORDERED: MIDAZOLAM HCL 1 MG/ML 2ML VIAL ONE (11:34)
[2016-09-06] MEDS ORDERED: FENTANYL CITRATE INJ 50 MCG/1 ML 2 ML VIAL ONE (11:34)
[2016-09-06] MEDS ORDERED: CEFAZOLIN IV 2,000 MG/60 ML D5W IV ONE (12:26)
--- NOTE | 2016-09-06 12:35 | History & Physical Bridge Note ---
H&P Re-Evaluation Bridge Note: I have examined the patient, reviewed the History & Physical and in the interval since the performance of the History & Physical I have noted the following changes of clinical significance: No changes noted
--- NOTE | 2016-09-06 12:36 | Procedure Note ---
Pre-Mod Sedation Assessment General Date of Moderate Sedation: Sep 06, 2016. Vital Signs: Vital Signs Past 12 Hours Date Time Temp Pulse Resp B/P Pulse Ox O2 Delivery O2 Flow Rate FiO2 09/06/16 11:32 36.8 88 18 80/54 97 Room Air Pre-Sedation Airway Assessment Oral Cavity: Chipped Teeth Smoking Status: Former Smoker Mallampati Classification: Class I ASA Classification: Class II Notes The planned sedation has been discussed with the patient and consent obtained. I have identified the patient, determined the appropriateness of sedation and have assessed the patient immediately prior to the procedure. All medicine(s) and interventions are by my order.
[2016-09-06] MEDS ORDERED: ONDANSETRON INJ 2 MG/ML 2 ML VIAL IV PRN ×2 (12:45→14:15)
[2016-09-06] MEDS ORDERED: MIDAZOLAM HCL 1 MG/ML 2ML VIAL IV ONE (12:54)
[2016-09-06] MEDS ORDERED: LIDOCAINE HCL 1% 20 ML VIAL INFIL ONE (12:54)
[2016-09-06] MEDS ORDERED: HEPARIN SOD (PORCINE) 5000 UNIT/ML 1 ML VIAL IV ONE (12:54)
--- NOTE | 2016-09-06 13:00 | Procedure Note ---
Post-Moderate Sedation Plan General Date of Moderate Sedation Sep 06, 2016. Vital Signs: Vital Signs Past 12 Hours Date Time Temp Pulse Resp B/P Pulse Ox O2 Delivery O2 Flow Rate FiO2 09/06/16 11:32 36.8 88 18 80/54 97 Room Air Review - Discharge Plan Post Moderate Sedation Plan: On clinical assessment, the patient appears to have tolerated the conscious sedation without complications. Patient is recovering as anticipated. Patient will continue to be monitored by nursing and may be discharged when conscious sedation discharge criteria are met.
--- NOTE | 2016-09-06 13:00 | [facility] Post Operative Brief Note ---
Immediate Operative Summary Operative Date Sep 06, 2016. Pre-Operative Diagnosis Malfunctioning Perm Cath Post-Operative Diagnosis Same Procedure(s) Performed Perm Cath Exchange, left int jugular, 27cm Fluroscopy for positioning Moderate Sedation ([id number]) Surgeon Carla Fountain Operator Surgeon(s) None Estimated Blood Loss 5 Findings tip in distal SVC Specimens None Anesthesia Local with moderate conscious sedation Complication(s) None Disposition
--- NOTE | 2016-09-06 13:54 | DIAGNOSTIC IMAGING REPORT ---
DATE OF PROCEDURE: 09/06/2016 PREOPERATIVE DIAGNOSIS: Malfunctioning left internal jugular vein PermCath. POSTOPERATIVE DIAGNOSIS: Same. PROCEDURE: Exchange of left internal jugular vein PermCath over 27 cm PermCath, fluoroscopic imaging for positioning and moderate conscious sedation 15 minutes. SURGEON: Dr. Aguirre. ANESTHETIC: Local with moderate conscious sedation. PROCEDURE INDICATIONS: The patient is a 35-year-old gentleman with a left internal jugular vein PermCath which has poor flows and not clearing well. Exchange was recommended. He understood the risks, options and benefits and agreed to have this procedure. PROCEDURE IN DETAIL: The patient was taken to the angio suite, placed in the supine position. After left side of neck and chest wall and catheter were prepped and draped in a sterile manner, local anesthetic was administered along the course of the catheter. Using blunt dissection, the cuff was freed up from the surrounding tissue. A wire was passed through centrally and the catheter removed over the wire. A new 27 cm catheter was inserted and placed in a central position. This was slightly further in than the last one. The tip was in the distal superior vena cava. Wire was removed. Both ports aspirated and flushed very easily. They were instilled with heparin. The catheter was sutured in place. Sterile dressings were applied and the patient left the angio suite in good condition and tolerated the procedure well.
[2016-09-06] MEDS ORDERED: SODIUM CHLORIDE 0.9% 500ML 500 ML IV SCH (14:00)
[2016-09-06] MEDS ORDERED: NRN100 PO (14:02)
[2016-09-06] MEDS ORDERED: CALCIUM CARBONATE 500 MG CHEWABLE PO PRN (14:15)
[2016-09-06] MEDS ORDERED: ALPRAZOLAM 0.5 MG TAB PO PRN (14:15)
[2016-09-06] MEDS ORDERED: ACETAMINOPHEN 325 MG TAB PO PRN (14:15)
[2016-09-06 14:29] LABS: MEAN CELL VOLUME 90.9 fL (80-100); MEAN CORPUSCULAR HEMOGLOBIN 30.5 pg (25-34); MEAN CORPUSCULAR HGB CONC 33.5 g/dl (32-36); MEAN PLATELET VOLUME 10.3 fL (7.4-10.4); PLATELET COUNT 133 K/uL (130-400); RED BLOOD COUNT 3.41 M/uL (4.7-6.1); WHITE BLOOD COUNT 7.13 K/uL (4.8-10.8)
[2016-09-06 14:38] LABS: INR 1.1 (0.9-1.1); PARTIAL THROMBOPLASTIN RATIO 1.7; PROTHROMBIN TIME (PATIENT) 11.5 SECONDS (9.0-12.0)
--- NOTE | 2016-09-06 14:42 | DIAGNOSTIC IMAGING REPORT ---
CHEST ONE VIEW PORTABLE CLINICAL HISTORY: s/p dialysis catheter placement COMPARISON STUDY: Chest radiograph July 23, 2016. FINDINGS: There is no pneumothorax. A left internal jugular dual lumen catheter is in place. The catheter tip projects over the distal SVC. Cardiac size is normal. Lungs are clear. There is no evidence of pulmonary edema. IMPRESSION: No pneumothorax. Appropriately positioned left internal jugular dual lumen catheter. Electronically signed by: Terrance Butler M.D. 09/06/2016 2:41 PM Dictated Date/Time: 09/06/2016 2:33 PM
--- NOTE | 2016-09-06 14:57 | History and Physical ---
History & Physical Date & Time of Service: Sep 06, 2016 at 14:15 Chief Complaint: Malfunctioning Perm Cath Primary Care Physician: Fanny Chen M.D. History of Present Illness Source: patient This is a 35 y/o male with PMH of ESRD on HD, CAD, gastroparesis, GERD, and other problems listed below who underwent replacement of malfunctioning permcath today by Dr. Aguirre. Postoperatively patient was found to be hyperkalemic (K+ 6.2) and hypotensive to approximately 80 systolic. He received a 250 mL bolus and BP is now in 90s/60s. EKG showed peaked T waves. O2 sats were 89% on RA and was placed on supplemental O2. Patient will be admitted to telemetry and will undergo dialysis this afternoon. The patient reports feeling tired but otherwise asymptomatic. He notes over past couple days he was feeling generally weak/ fatigued as if he needed dialysis. He states last dialysis was this am with [facility] in [place]. He dialyzes MWF. His on site manager is Dr. Restrepo. Patient states his permcath was last replaced approximately 1 month ago and recently was not functioning well. He states he is currently at his dry weight. Pt is anuric. This morning he took clonidine 0.4 mg and hydralazine 100 mg but other BP meds were held. He states his usual BP is 120/80. He denies fever, chills, dizziness, syncope, URI symptoms, cough, SOB, chest pain, palpitations, abdominal pain, N/V/D/C, appetite loss, rash, edema. Patient was recently hospitalized at [facility] Jul 23- for hyperkalemia, hypertensive urgency, intractable N/V/ epigastric pain. Pt underwent LUE basilic vein AV fistula during that admission on 07/26/16. Past Medical/Surgical History Medical Problems: (1) Anxiety Status: Chronic (2) CAD (coronary artery disease) Permanent Comment: s/p stent placement Status: Chronic (3) Depression Status: Chronic (4) Dialysis patient Status: Chronic (5) ESRD (end stage renal disease) Status: Chronic (6) Fistula Status: Chronic (7) HTN (hypertension) Status: Chronic (8) Kidney transplant failure Status: Chronic (9) Thrombocytopenia Status: Chronic Surgical Problems: (1) Kidney transplant status Permanent Comment: R 1984 and L 2012 Status: Chronic (2) Stented coronary artery Permanent Comment: stents x 2 in [place] in 2006 and 2010 Status: Resolved Family History FH: diabetes mellitus FH: kidney disease Social History Smoking Status: Former Smoker (quit May 2016, prior 1/2 ppd x 10 y) Alcohol Use: none Drug Use: none Immunizations History of Influenza Vaccine: Yes Influenza Vaccine Date: Apr 05, 2016 History of Tetanus Vaccine?: Yes Tetanus Immunization Date: Feb 12, 2014 History of Pneumococcal: Yes Pneumococcal Date: Feb 12, 2014 Allergies Coded Allergies: Minoxidil (Verified Adverse Reaction, Intermediate, priapism, 09/06/16) Prednisone (Verified Adverse Reaction, Intermediate, SEVERE GI UPSET, CONSTIPATION, 09/06/16) PER RECORDS Terazosin (Verified Adverse Reaction, Intermediate, priapism, 09/06/16) Home Medications Scheduled Alprazolam (Xanax), 0.5 MG PO UD Amitriptyline HCl (Amitriptyline HCl), 10 MG PO HS Amlodipine (Norvasc), 10 MG PO QAM Aspirin (Aspirin Ec), 81 MG PO QAM Cholecalciferol (Vitamin D3), 3,000 UNITS PO DAILY Cinacalcet (Sensipar), 30 MG PO QPM Clonidine Hcl (Catapres), 0.4 MG PO TID Clonidine Hcl (Clonidine Hcl), 1 PATCH EXT WK Gabapentin (Gabapentin), 100 MG PO TID Hydralazine Hcl (Apresoline), 1 TAB PO TID Labetalol HCl (Labetalol HCl), 200 MG PO BID Lisinopril (Zestril), 1 TAB PO QAM Metoclopramide (Reglan), 10 MG PO AC Pantoprazole (Protonix), 40 MG PO BID Sertraline (Zoloft), 50 MG PO QAM Sevelamer Hydroch (Renagel), 3,200 MG PO TIDM Trazodone Hcl (Trazodone), 50 MG PO HS Scheduled PRN Calcium Carbonate (Tums), 500 MG PO DAILY PRN for heartburn Review of Systems Constitutional: + fatigue, + weakness (generalized), No chills, No fever Eyes: No worsening of vision ENT: No nasal symptoms Respiratory: No cough, No shortness of breath Cardiovascular: No chest pain, No edema, No palpitations Abdomen: No constipation, No diarrhea, No nausea, No pain, No vomiting Musculoskeletal: No calf pain, No muscle pain Genitourinary - Male: + problem reported (anuric) Neurologic: No problem reported (denies ELAM, dizziness) Integumentary: No itch, No rash Physical Exam Vital Signs Date Time Temp Pulse Resp B/P Pulse Ox O2 Delivery O2 Flow Rate FiO2 09/06/16 13:10 37 72 16 93/71 92 Room Air 09/06/16 11:32 36.8 88 18 80/54 97 Room Air General Appearance: WD/WN, no apparent distress, + pertinent finding ( cooperative 35 year old male, awake but slightly drowsy) Head: normocephalic, atraumatic Eyes: normal inspection, PERRL, EOMI ENT: hearing grossly normal, pharynx normal Neck: supple, trachea midline Respiratory/Chest: lungs clear, normal breath sounds, no respiratory distress, no accessory muscle use Cardiovascular: regular rate, rhythm, no murmur, normal peripheral pulses, + pertinent finding (permcath present left chest) Abdomen/GI: normal bowel sounds, non tender, soft Extremities/Musculoskelatal: no calf tenderness, normal capillary refill, no pedal edema Neurologic/Psych: alert, normal mood/affect, oriented x 3, + pertinent finding (grossly nonfocal) Skin: normal color, warm/dry Diagnostics Laboratory Results Results Past 24 Hours Test 09/06/16 11:32 09/06/16 13:08 Range/Units Potassium Level 6.2 3.5-5.1 mmol/L Diagnostic Radiology CHEST ONE VIEW PORTABLE CLINICAL HISTORY: s/p dialysis catheter placement COMPARISON STUDY: Chest radiograph July 23, 2016. FINDINGS: There is no pneumothorax. A left internal jugular dual lumen catheter is in place. The catheter tip projects over the distal SVC. Cardiac size is normal. Lungs are clear. There is no evidence of pulmonary edema. IMPRESSION: No pneumothorax. Appropriately positioned left internal jugular dual lumen catheter. EKG NSR, 73 bpm, nonspecific intraventricular conduction delay, peaked T waves Impression Assessment and Plan HYPOTENSION Afebrile; no leukocytosis; no tachycardia; ESR- 19, procalcitonin- 1.71 PRP, CRP, lactic acid pending CXR- unremarkable, no infiltrate No clear evidence for infection Received 250 mL bolus with improvement to 90s systolic Will give another 500 mL bolus due to borderline BP Hold antihypertensive meds for now Monitor in telemetry HYPERKALEMIA In setting of ESRD on HD K+ = 6.2 EKG shows NSR with peaked T waves Nephrology consulted; Dr. Restrepo is aware; appreciate assistance Dialysis is arranged for this afternoon Monitor in telemetry HYPOXIA CXR unremarkable Supplemental O2 per protocol Incentive spirometry ESRD ON HD S/p PermCath exchange POD #[address] Aguirre Nephrology consulted for HD CHRONIC ANEMIA Hg = 10.4; stable from 07/24/2016 Monitor CBC CAD Stable; denies chest pain BB and MARJAN-I on hold for hypotension Continue aspirin ANXIETY/ DEPRESSION Continue home medications H/O GASTROPARESIS Continue Reglan GERD Continue PPI DVT PROPHYLAXIS SCD's DISPOSITION Observation in telemetry Follows with Dr. Fanny Chen for primary care and Dr. Restrepo for nephrology Patient seen in collaboration with Dr. Saavedra. Please see his addendum. VTE Prophylaxis VTE Risk Assessment Done? Y/N: Yes Risk Level: Low Given or contraindicated: SCD's Note ATTENDING ADDENDUM Record reviewed. Patient interviewed and examined. Care coordinated with Jeni Kwan PA-C. Please refer to her documentation for patient's history. Briefly, 35 YO male with CKD V on hemodialysis. Hemodialysis catheter malfunctioning and had to be replaced today. Only received partial dialysis this morning due to catheter malfunction. EXAM: General- no distress VS- as noted Lungs- clear Heart- RRR Thorax- tunneled hemodialysis cath left upper chest bandaged Abdomen- + BS, soft, nontender Extremities- no pretibial edema or calf tenderness Neuro- alert DATA: K 6.2. Other lab studies as noted. EKG- NSR, borderline peaked T-waves V3-4. CXR- no pulmonary edema or pneumothorax. ASSESSMENT AND PLAN: Malfunctioning hemodialysis catheter replaced. K 6.2. Nephrology consulted and hemodialysis today anticipated. BP 80/54, improved to 93/71 with saline bolus. No fever. Does not appear to be septic. Titrate antihypertensive meds. Check blood cultures if febrile or hypotension persists. Please refer to ETHAN Kwan's documentation for discussion of other issues. Shayne Saavedra MD .
[2016-09-06] MEDS ORDERED: IV FLUIDS COMPLETED PRN (15:15)
[2016-09-06] MEDS: OXYCODONE/ACETAMINOPHEN 5-325 TAB PO PRN (18:15)
[2016-09-06] MEDS: SEVELAMER HYDROCH 800 MG TAB PO SCH (18:27)
[2016-09-06] MEDS: METOCLOPRAMIDE HCL 10 MG TAB PO SCH (18:27)
[2016-09-06] MEDS ORDERED: CINACALCET 30 MG TAB PO SCH (18:30)
[2016-09-06 19:07] LABS: ALB/GLOB RATIO 0.8 (0.9-2); BUN/CREATININE RATIO 5.7 (10-20); C-REACTIVE PROTEIN 0.42 mg/dl (0-0.29); CALCIUM 7.8 mg/dl (8.5-10.1)
[2016-09-06] MEDS ORDERED: AMITRIPTYLINE HCL 10 MG TAB PO SCH (21:00)
[2016-09-06] MEDS ORDERED: TRAZODONE HCL 50 MG TAB PO SCH (21:00)
[2016-09-06] MEDS ORDERED: LABETALOL HCL 200 MG TAB PO ONE (21:10)
[2016-09-07] VITALS (17 sets, daily range): BP systolic 92–171; BP diastolic 63–110; PULSE 66–91; TEMP 36.6–37; O2SAT 93–97
[2016-09-07] MEDS: PANTOprazole SOD 40 MG TAB PO SCH ×2 (00:18→08:23)
[2016-09-07] MEDS: GABAPENTIN 100 MG CAP PO SCH ×2 (00:18→08:22)
[2016-09-07] MEDS: OXYCODONE/ACETAMINOPHEN 5-325 TAB PO PRN ×2 (00:22→12:10)
--- NOTE | 2016-09-07 00:51 | NEPHROLOGY CONSULTATION ---
DATE OF CONSULTATION: 09/06/2016 ATTENDING OF RECORD: Dr. Saavedra. REASON FOR CONSULTATION: ESRD and hyperkalemia. 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 The patient has been on dialysis Mondays, Wednesdays, Fridays at the [facility] dialysis unit in [place]. The patient was having issues with recurrent nausea, vomiting and abdominal pain as well as hypertension issues; however, patient realized that he was drinking a lot of caffeinated coffee and since stopping that his blood pressures have improved dramatically and no more nausea, vomiting or abdominal pain. The patient does have vascular disease with multiple attempts at fistulas before as well as recurrent issues with a tunnel lines being replaced. The patient's potassium levels were elevated as an outpatient and catheter was not working well. The patient's catheter was exchanged today, however, secondary to the potassium level being elevated at 6.2 I decided to bring him in to the hospital for dialysis to help lower the potassium levels. The patient's blood pressures did drop when he came since he took blood pressure medications right after dialysis, which he was doing in the past; however, now that his blood pressures are much better and he is avoiding caffeinated beverages he may need blood pressure medications adjusted. PAST MEDICAL HISTORY: 1. End-stage renal disease, on dialysis Mondays, Wednesdays, Fridays. Did have dialysis shortened treatment this morning for a couple of hours with 250 blood flow and even with that potassium levels were elevated at 6.2. 2. Hypertension. 3. Glomerulonephritis with history of 2 kidney transplants. 4. Anxiety. 5. Coronary artery disease with history of stenting to the heart. PAST SURGICAL HISTORY: Two kidney transplants, fistula attempts, multiple tunneled dialysis catheter placements, gastroparesis, stent to the heart. FAMILY HISTORY: Significant for kidney disease. SOCIAL HISTORY: Former smoker, no alcohol, no drugs. Lives with friends in [place]. REVIEW OF SYSTEMS: No headaches, no blurry vision, no chest pain, no shortness of breath, no nausea or vomiting, no diarrhea or constipation. No rash or itching. All other review of systems is otherwise negative. CURRENT MEDICATIONS: Reviewed. PHYSICAL EXAMINATION: VITAL SIGNS: Temperature 37, pulse 70, respiratory rate is 18, blood pressure is 119/85. Satting 97% on room air. GENERAL: Awake, alert, oriented x3. EYES: No scleral icterus. ENT: Moist mucous membranes. NECK: Supple. PULMONARY: Clear to auscultation. CARDIAC: Regular rate and rhythm. ABDOMEN: Bowel sounds positive, soft, nontender, nondistended. EXTREMITIES: No clubbing, cyanosis or edema. NEUROLOGICALLY: Nonfocal. DERMATOLOGIC: No rash or ulcers noted. LABORATORY DATA: White count 7, H\T\H 10 and 31, platelet count is 133. Sed rate is 19. Repeat lab work is pending. Procalcitonin of 1.71. Lactic acid was normal at 0.7, potassium level was elevated at 6.2. INR is 1.1. Chest x-ray shows no pneumothorax with appropriately positioned left IJ lumen catheter. IMPRESSION: 1. End-stage renal disease: Plan on dialysis tonight secondary to hyperkalemia. If potassium levels are stable tomorrow morning, okay from renal perspective to go home and will continue outpatient dialysis Mondays, Wednesdays, and Fridays. 2. Hypertension. Blood pressure medications may need adjusted given the fact that now that he has been avoiding caffeinated beverages blood pressures have been dropping. The patient is also eating well and have been increasing his dry weight secondary to the low blood pressure and cramping towards the end of dialysis. The patient is on lisinopril 40, labetalol 200 b.i.d., clonidine 0.4 t.i.d., hydralazine 50 t.i.d., amlodipine 10 mg a day. I would recommend stopping his hydralazine and continue the lisinopril 40, labetalol 200 b.i.d., clonidine 0.4 t.i.d. and amlodipine 10. MTDD
[2016-09-07] MEDS ORDERED: CLONIDINE HCL 0.1 MG TAB PO ONE (03:45)
[2016-09-07 07:40] LABS: HEMATOCRIT 32.7 % (42-52); MEAN CELL VOLUME 92.6 fL (80-100); MEAN CORPUSCULAR HEMOGLOBIN 30.6 pg (25-34); MEAN PLATELET VOLUME 10.6 fL (7.4-10.4); PLATELET COUNT 125 K/uL (130-400); RED BLOOD COUNT 3.53 M/uL (4.7-6.1); WHITE BLOOD COUNT 6.27 K/uL (4.8-10.8)
[2016-09-07] MEDS: METOCLOPRAMIDE HCL 10 MG TAB PO SCH ×2 (08:23→12:10)
[2016-09-07] MEDS: SEVELAMER HYDROCH 800 MG TAB PO SCH ×2 (08:24→12:11)
[2016-09-07 08:39] LABS: BUN/CREATININE RATIO 4.3 (10-20); CALCIUM 8.3 mg/dl (8.5-10.1); CREATININE 7.9 mg/dl (0.60-1.40); MAGNESIUM 1.9 mg/dl (1.8-2.4); POTASSIUM 5.5 mmol/L (3.5-5.1)
[2016-09-07] MEDS ORDERED: CHOLECALCIFEROL 1000 INTER.UNIT TAB PO SCH (09:00)
[2016-09-07] MEDS ORDERED: ASPIRIN 81 MG ECTAB PO SCH (09:00)
[2016-09-07] MEDS ORDERED: LISINOPRIL 40 MG TAB PO SCH (09:00)
[2016-09-07] MEDS ORDERED: AMLODIPINE BESYLATE 5 MG TAB PO SCH (09:00)
[2016-09-07] MEDS ORDERED: SERTRALINE HCL 50 MG TAB PO SCH (09:00)
[2016-09-07] MEDS ORDERED: CLONIDINE HCL 0.1 MG TAB PO SCH ×2 (09:00)
[2016-09-07] MEDS ORDERED: LABETALOL HCL 200 MG TAB PO SCH (09:00)
[2016-09-07] MEDS ORDERED: HEPARIN SOD (PORCINE) 1000 UNIT/ML 10 ML VIAL IV SCH ×2 (12:15)
--- NOTE | 2016-09-07 12:22 | Nephrology Progress Note ---
Nephrology Progress Note Date of Service: Sep 07, 2016. Subjective slight pain over TDC else no c/o. some dietary indiscretion noted by nursing; no sob, no abd pain no ELAM Objective Date Time Temp Pulse Resp B/P Pulse Ox O2 Delivery O2 Flow Rate FiO2 09/07/16 11:44 36.7 66 20 125/85 95 Room Air 09/07/16 07:42 36.6 73 16 149/100 95 Room Air 09/07/16 04:00 Nasal Cannula 2.0 09/07/16 03:40 36.6 77 18 171/106 94 Room Air 09/07/16 00:11 36.7 90 18 157/110 93 Room Air 09/07/16 00:05 36.6 91 158/109 09/07/16 00:00 97 Nasal Cannula 2.0 09/06/16 23:45 90 150/106 09/06/16 23:30 89 152/108 09/06/16 23:15 92 170/111 09/06/16 23:00 88 171/111 09/06/16 22:45 87 164/119 09/06/16 22:30 86 151/106 09/06/16 22:15 86 150/101 09/06/16 22:00 94 153/109 09/06/16 21:45 85 151/101 09/06/16 21:30 82 171/101 09/06/16 21:15 78 169/112 09/06/16 21:00 78 164/114 09/06/16 20:49 74 138/107 09/06/16 20:40 36.4 74 163/119 09/06/16 20:07 36.4 73 18 166/109 94 2.0 09/06/16 20:00 97 Nasal Cannula 2.0 09/06/16 17:20 36.7 74 16 131/87 97 Nasal Cannula 2.0 09/06/16 16:09 37 70 18 119/85 97 Room Air 09/06/16 15:33 37 68 16 116/88 97 Room Air 09/06/16 14:26 36.9 72 18 98/66 93 Room Air 09/06/16 13:40 37 71 16 107/78 93 Room Air 09/06/16 13:10 37 72 16 93/71 92 Room Air Physical Exam: GENERAL: Awake, alert, oriented x3. RA, maneuvers easily for exam EYES: No scleral icterus. ENT: Moist mucous membranes. NECK: Supple. PULMONARY: Clear to auscultation. CARDIAC: Regular rate and rhythm. ABDOMEN: Bowel sounds positive, soft, nontender, nondistended. EXTREMITIES: No clubbing, cyanosis or edema. DERMATOLOGIC: No rash or ulcers noted. Current Inpatient Medications Medications (Trade) Dose Ordered Sig/Betsy Route Start Time Stop Time Status Last Admin Dose Admin Oxycodone/ Acetaminophen (Percocet 5-325mg Tab) FOR MODERATE PAIN ... Q4H PRN PO 09/06/16 12:45 09/20/16 12:44 09/07/16 12:10 2 TAB Ondansetron HCl (Zofran Inj) 4 mg Q6H PRN IV 09/06/16 12:45 10/06/16 12:44 Acetaminophen (Tylenol Tab) 650 mg Q4H PRN PO 09/06/16 14:15 10/06/16 14:14 Ondansetron HCl (Zofran Inj) 4 mg Q6H PRN IV 09/06/16 14:15 10/06/16 14:14 Amitriptyline HCl (Elavil Tab) 10 mg HS PO 09/06/16 21:00 10/06/16 20:59 09/07/16 00:19 10 MG Aspirin (Ecotrin Tab) 81 mg QAM PO 09/07/16 09:00 10/07/16 08:59 09/07/16 08:24 81 MG Calcium Carbonate (Tums Chew Tab) 500 mg DAILY PRN PO 09/06/16 14:15 10/06/16 14:14 09/07/16 08:23 500 MG Cholecalciferol (Vitamin D Tab) 3,000 inter.unit DAILY PO 09/07/16 09:00 10/07/16 08:59 09/07/16 08:22 3,000 INTER.UNIT Gabapentin (Neurontin Cap) 100 mg TID PO 09/06/16 21:00 10/06/16 20:59 09/07/16 08:22 100 MG Metoclopramide HCl (Reglan Tab) 10 mg AC PO 09/06/16 18:30 10/06/16 18:29 09/07/16 12:10 10 MG Pantoprazole Sodium (Protonix Tab) 40 mg BID PO 09/06/16 21:00 10/06/16 20:59 09/07/16 08:23 40 MG Sertraline HCl (Zoloft Tab) 50 mg QAM PO 09/07/16 09:00 10/07/16 08:59 09/07/16 08:24 50 MG Sevelamer HCl (Renagel Tab) 3,200 mg TIDM PO 09/06/16 18:30 10/06/16 18:29 09/07/16 12:11 3,200 MG Trazodone HCl (Desyrel Tab) 50 mg HS PO 09/06/16 21:00 10/06/16 20:59 09/07/16 01:37 50 MG Cinacalcet (Sensipar) 30 mg QDD PO 09/06/16 18:30 10/06/16 18:29 09/06/16 18:28 30 MG Alprazolam (Xanax Tab) 0.5 mg UD PRN PO 09/06/16 14:15 10/06/16 14:14 Miscellaneous (Iv Fluids Completed) 1 ea PRN PRN N/A 09/06/16 15:15 09/06/17 15:14 Labetalol HCl (Normodyne Tab) 200 mg BID PO 09/07/16 09:00 10/07/16 08:59 09/07/16 08:23 200 MG Amlodipine Besylate (Norvasc Tab) 10 mg QAM PO 09/07/16 09:00 09/07/16 08:25 10 MG Lisinopril (Zestril Tab) 40 mg QAM PO 09/07/16 09:00 09/07/16 08:25 40 MG Clonidine HCl (Catapres Tab) 0.4 mg TID PO 09/07/16 09:00 10/07/16 08:59 09/07/16 08:25 0.4 MG Last 24 Hours Test 09/06/16 14:21 09/06/16 19:40 09/07/16 07:19 White Blood Count 7.13 K/uL 6.27 K/uL Red Blood Count 3.41 M/uL 3.53 M/uL Hemoglobin 10.4 g/dL 10.8 g/dL Hematocrit 31.0 % 32.7 % Mean Corpuscular Volume 90.9 fL 92.6 fL Mean Corpuscular Hemoglobin 30.5 pg 30.6 pg Mean Corpuscular Hemoglobin Concent 33.5 g/dl 33.0 g/dl RDW Standard Deviation 54.6 fL 55.1 fL RDW Coefficient of Variation 16.5 % 16.3 % Platelet Count 133 K/uL 125 K/uL Mean Platelet Volume 10.3 fL 10.6 fL Erythrocyte Sedimentation Rate 19 mm/hr Prothrombin Time 11.5 SECONDS Prothromb Time International Ratio 1.1 Activated Partial Thromboplast Time 44.2 SECONDS Partial Thromboplastin Ratio 1.7 Sodium Level 133 mmol/L 133 mmol/L Potassium Level 8.0 mmol/L 6.7 mmol/L 5.5 mmol/L Chloride Level 102 mmol/L 99 mmol/L Carbon Dioxide Level 18 mmol/L 21 mmol/L Anion Gap 12.0 mmol/L 13.0 mmol/L Blood Urea Nitrogen 69 mg/dl 34 mg/dl Creatinine 12.00 mg/dl 7.90 mg/dl Est Creatinine Clear Calc Drug Dose 7.5 ml/min 11.4 ml/min Estimated GFR () 5.5 9.1 Estimated GFR (Non- 4.7 7.9 BUN/Creatinine Ratio 5.7 4.3 Random Glucose 88 mg/dl 90 mg/dl Lactic Acid Level 0.7 mmol/L Calcium Level 7.8 mg/dl 8.3 mg/dl Total Bilirubin 0.3 mg/dl Aspartate Amino Transf (AST/SGOT) 17 U/L Alanine Aminotransferase (ALT/SGPT) 13 U/L Alkaline Phosphatase 71 U/L C-Reactive Protein 0.42 mg/dl Total Protein 8.1 gm/dl Albumin 3.5 gm/dl Globulin 4.6 gm/dl Albumin/Globulin Ratio 0.8 Procalcitonin 1.71 ng/mL Magnesium Level 1.9 mg/dl Assessment & Plan 35-year-old male with 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 Pt with vascular disease with multiple failed fistula attempts before as well as recurrent issues with tunnelled lines being replaced. 1. End-stage renal disease: >>d/t ongoing elevated K will do 2h tx today; then ok for d/c home to resume outpatient dialysis Mondays, Wednesdays, and Fridays. 2. Hypertension. Blood pressure medications may need adjusted given the fact that now that he has been avoiding caffeinated beverages blood pressures have been dropping on HD though still quite high other times for example overnight. The patient is also eating well and have been increasing his dry weight secondary to the low blood pressure and cramping towards the end of dialysis >>recommend lowering hydralazine to 50 mg tid from 100 at hosp d/c appreciate c/s; will follow with you. care coordinated w/ Dr Salamanca
--- NOTE | 2016-09-07 15:19 | Progress Note ---
Medicine Progress Note Date & Time of Visit: Sep 07, 2016 at 15:12. Subjective s/p HD today feels great denies weakness, dizziness, headache, chest pain, dyspnea states he is ready and would like to be discharged today Objective Last 8 Hrs Date Time Temp Pulse Resp B/P Pulse Ox O2 Delivery O2 Flow Rate FiO2 09/07/16 12:00 Room Air 09/07/16 11:44 36.7 66 20 125/85 95 Room Air 09/07/16 08:00 Room Air 09/07/16 07:42 36.6 73 16 149/100 95 Room Air Physical Exam: General- oriented x 3, not in distress, speaks in sentences with no effort Eyes- anicteric ENT- oropharynx clear Neck- supple, no JVD Lungs- clear to auscultation b/l Heart- regular rhythm; no murmurs perm cath site: no bleeding/hematoma Abdomen- normal bowel sounds, soft, nontender Extremities- AV fistula on the left arm; no pretibial edema, no calf tenderness; peripheral pulses intact Neuro- alert, oriented x 3; no gross focal deficits Skin- warm & dry Laboratory Results: Last 24 Hours Test 09/06/16 19:40 09/07/16 07:19 Potassium Level 6.7 mmol/L 5.5 mmol/L White Blood Count 6.27 K/uL Red Blood Count 3.53 M/uL Hemoglobin 10.8 g/dL Hematocrit 32.7 % Mean Corpuscular Volume 92.6 fL Mean Corpuscular Hemoglobin 30.6 pg Mean Corpuscular Hemoglobin Concent 33.0 g/dl RDW Standard Deviation 55.1 fL RDW Coefficient of Variation 16.3 % Platelet Count 125 K/uL Mean Platelet Volume 10.6 fL Sodium Level 133 mmol/L Chloride Level 99 mmol/L Carbon Dioxide Level 21 mmol/L Anion Gap 13.0 mmol/L Blood Urea Nitrogen 34 mg/dl Creatinine 7.90 mg/dl Est Creatinine Clear Calc Drug Dose 11.4 ml/min Estimated GFR () 9.1 Estimated GFR (Non- 7.9 BUN/Creatinine Ratio 4.3 Random Glucose 90 mg/dl Calcium Level 8.3 mg/dl Magnesium Level 1.9 mg/dl Assessment & Plan HYPOTENSION noted after Permcath exchange by Dr. Aguirre on 09/06/16 Afebrile; no leukocytosis; no tachycardia; ESR- 19, procalcitonin- 1.71 lactic acid normal CXR- unremarkable, no infiltrate - no signs of infection BP improved with IV fluid bolus - Hydralazine discontinued continue usual BP medications except Hydralazine monitor BP as outpatient HYPERKALEMIA In setting of ESRD on HD K+ = 6.2 EKG shows NSR with peaked T waves Nephrology consulted; s/p HD on 09/06/16 K improved to 5.5 s/p HD 09/07/16 - continue usual HD schedule HYPOXIA CXR unremarkable resolved ESRD ON HD S/p PermCath exchange 09/06/[address] Aguirre CHRONIC ANEMIA Hg = 10.4; stable from 07/24/2016 CAD Stable; denies chest pain Continue aspirin ANXIETY/ DEPRESSION Continue home medications H/O GASTROPARESIS Continue Reglan GERD Continue PPI DVT PROPHYLAXIS SCD's DISPOSITION d/c home ff up with PCP next week continue usual HD schedule Current Inpatient Medications: Current Inpatient Medications Medications (Trade) Dose Ordered Sig/Betsy Route Start Time Stop Time Status Last Admin Dose Admin Oxycodone/ Acetaminophen (Percocet 5-325mg Tab) FOR MODERATE PAIN ... Q4H PRN PO 09/06/16 12:45 09/20/16 12:44 09/07/16 12:10 2 TAB Ondansetron HCl (Zofran Inj) 4 mg Q6H PRN IV 09/06/16 12:45 10/06/16 12:44 Acetaminophen (Tylenol Tab) 650 mg Q4H PRN PO 09/06/16 14:15 10/06/16 14:14 Ondansetron HCl (Zofran Inj) 4 mg Q6H PRN IV 09/06/16 14:15 10/06/16 14:14 Amitriptyline HCl (Elavil Tab) 10 mg HS PO 09/06/16 21:00 10/06/16 20:59 09/07/16 00:19 10 MG Aspirin (Ecotrin Tab) 81 mg QAM PO 09/07/16 09:00 10/07/16 08:59 09/07/16 08:24 81 MG Calcium Carbonate (Tums Chew Tab) 500 mg DAILY PRN PO 09/06/16 14:15 10/06/16 14:14 09/07/16 08:23 500 MG Cholecalciferol (Vitamin D Tab) 3,000 inter.unit DAILY PO 09/07/16 09:00 10/07/16 08:59 09/07/16 08:22 3,000 INTER.UNIT Gabapentin (Neurontin Cap) 100 mg TID PO 09/06/16 21:00 10/06/16 20:59 09/07/16 08:22 100 MG Metoclopramide HCl (Reglan Tab) 10 mg AC PO 09/06/16 18:30 10/06/16 18:29 09/07/16 12:10 10 MG Pantoprazole Sodium (Protonix Tab) 40 mg BID PO 09/06/16 21:00 10/06/16 20:59 09/07/16 08:23 40 MG Sertraline HCl (Zoloft Tab) 50 mg QAM PO 09/07/16 09:00 10/07/16 08:59 09/07/16 08:24 50 MG Sevelamer HCl (Renagel Tab) 3,200 mg TIDM PO 09/06/16 18:30 10/06/16 18:29 09/07/16 12:11 3,200 MG Trazodone HCl (Desyrel Tab) 50 mg HS PO 09/06/16 21:00 10/06/16 20:59 09/07/16 01:37 50 MG Cinacalcet (Sensipar) 30 mg QDD PO 09/06/16 18:30 10/06/16 18:29 09/06/16 18:28 30 MG Alprazolam (Xanax Tab) 0.5 mg UD PRN PO 09/06/16 14:15 10/06/16 14:14 Miscellaneous (Iv Fluids Completed) 1 ea PRN PRN N/A 09/06/16 15:15 09/06/17 15:14 Labetalol HCl (Normodyne Tab) 200 mg BID PO 09/07/16 09:00 10/07/16 08:59 09/07/16 08:23 200 MG Amlodipine Besylate (Norvasc Tab) 10 mg QAM PO 09/07/16 09:00 09/07/16 08:25 10 MG Lisinopril (Zestril Tab) 40 mg QAM PO 09/07/16 09:00 09/07/16 08:25 40 MG Clonidine HCl (Catapres Tab) 0.4 mg TID PO 09/07/16 09:00 10/07/16 08:59 09/07/16 08:25 0.4 MG
--- NOTE | 2016-09-07 15:27 | Discharge Instructions ---
Discharge Instructions Admission Reason for Admission: Malfunctioning Perm Cath Discharge Discharge Diagnosis / Problem: HYPOTENSION, HYPERKALEMIA Discharge Goals Goal(s): Diagnostic testing, Therapeutic intervention Activity Recommendations Activity Limitations: as noted below (NO HEAVY EXERTION OR DRIVING UNTIL RE- EVALUATED BY PRIMARY CARE PHYSICIAN) . Instructions / Follow-Up Instructions / Follow-Up DISCONTINUE HYDRALAZINE. FOLLOWS INSTRUCTIONS WITH YOUR MEDICATIONS CAREFULLY. CALL PRIMARY CARE PHYSICIAN OR RETURN TO ER IMMEDIATELY IF WITH WEAKNESS, DIZZINESS, FEVER/CHILLS, COUGH, DIARRHEA, INCREASING PAIN/REDNESS/SWELLING OR BLEEDING ON YOUR PERMCATH SITE. FOLLOW UP WITH YOUR PRIMARY CARE PHYSICIAN NEXT WEEK. Current Hospital Diet Patient's current hospital diet: Renal Diet, AHA Diet (Heart Healthy) Discharge Diet Recommended Diet: AHA Diet (Heart Healthy), Renal Diet Procedures Procedures Performed: 09/06/16 Perm Cath Exchange, left int jugular, 27cm Fluroscopy for positioning Moderate Sedation ([id number]) Pending Studies Studies pending at discharge: no Medical Emergencies . Who to Call and When: Medical Emergencies: If at any time you feel your situation is an emergency, please call 911 immediately. . Non-Emergent Contact Non-Emergency issues call your: Primary Care Provider Call Non-Emergent contact if: you have a fever, your pain is not controlled, wound has increased drainage, wound has increased redness, wound has increased pain, you have any medication questions . Past History Medical & Surgical History: (1) Kidney transplant failure (2) Dialysis patient (3) ESRD (end stage renal disease) (4) Fistula (5) Depression (6) HTN (hypertension) (7) Thrombocytopenia (8) Anxiety (9) CAD (coronary artery disease) (10) Hyperkalemia (11) Intractable abdominal pain (12) Stented coronary artery (13) Kidney transplant status . "Provider Documentation" section prepared by Rony Salamanca. VTE Core Measure Inpt VTE Proph given/why not?: SCD's
[2016-09-07] MEDS ORDERED: HYDR-4717 PO (15:29)
--- NOTE | 2016-09-07 15:34 | Discharge Summary ---
Discharge Summary Admission Date: Sep 06, 2016 at 14:07 Discharge Date: Sep 07, 2016 Discharge Disposition: Home Principal Diagnosis: HYPOTENSION Secondary Diagnoses/Problems: PLEASE REFER TO HOSPITAL COURSE BELOW. Procedures: 09/06/16 Perm Cath Exchange, left int jugular, 27cm Fluroscopy for positioning Moderate Sedation ([id number]) Consultations: [employer] FIELD COORDINATOR DR. KOCH/ DR. GREEN Pending Studies/Follow-Up: MONITOR BP (HYDRALAZINE DECREASED FROM 100MG TID TO 50MG TID) Medication Reconciliation New Medications: Hydralazine Hcl (Apresoline) 50 Mg Tab 1 TAB PO TID for 30 Days, #90 TAB 2 Refills Continued Medications: Alprazolam (Xanax) 0.5 Mg Tab 0.5 MG PO UD BEFORE DIALYSIS Amitriptyline HCl (Amitriptyline HCl) 10 Mg Tab 10 MG PO HS Amlodipine (Norvasc) 10 Mg Tab 10 MG PO QAM Aspirin (Aspirin Ec) 81 Mg Tab 81 MG PO QAM Calcium Carbonate (Tums) 500 Mg Chew 500 MG PO DAILY PRN for heartburn Cholecalciferol (Vitamin D3) 1,000 Unit Tab 3000 UNITS PO DAILY for 30 Days, TAB 5 Refills Cinacalcet (Sensipar) 30 Mg Tab 30 MG PO QPM, TAB WITH SUPPER Clonidine Hcl (Catapres) 0.2 Mg Tab 0.4 MG PO TID Clonidine Hcl (Clonidine Hcl) 0.3 Mg/24 Hr Dis 1 PATCH EXT WK PATCH IS CHANGED ON SUNDAYS Gabapentin (Gabapentin) 100 Mg Cap 100 MG PO TID Labetalol HCl (Labetalol HCl) 200 Mg Tab 200 MG PO BID Lisinopril (Zestril) 40 Mg Tab 1 TAB PO QAM, TAB 5 Refills Metoclopramide (Reglan) 10 Mg Tab 10 MG PO AC Pantoprazole (Protonix) 40 Mg Tab 40 MG PO BID, #30 TAB Sertraline (Zoloft) 50 Mg Tab 50 MG PO QAM, TAB Sevelamer Hydroch (Renagel) 800 Mg Tab 3200 MG PO TIDM Trazodone Hcl (Trazodone) 50 Mg Tab 50 MG PO HS, TAB Discontinued Medications: Hydralazine Hcl (Apresoline) 100 Mg Tab 1 TAB PO TID for 30 Days, #90 TAB 5 Refills Admission Information HPI (per Admitting provider): This is a 35 y/o male with PMH of ESRD on HD, CAD, gastroparesis, GERD, and other problems listed below who underwent replacement of malfunctioning permcath today by Dr. Aguirre. Postoperatively patient was found to be hyperkalemic (K+ 6.2) and hypotensive to approximately 80 systolic. He received a 250 mL bolus and BP is now in 90s/60s. EKG showed peaked T waves. O2 sats were 89% on RA and was placed on supplemental O2. Patient will be admitted to telemetry and will undergo dialysis this afternoon. The patient reports feeling tired but otherwise asymptomatic. He notes over past couple days he was feeling generally weak/ fatigued as if he needed dialysis. He states last dialysis was this am with [facility] in [place]. He dialyzes MWF. His airplane first officer is Dr. Koch. Patient states his permcath was last replaced approximately 1 month ago and recently was not functioning well. He states he is currently at his dry weight. Pt is anuric. This morning he took clonidine 0.4 mg and hydralazine 100 mg but other BP meds were held. He states his usual BP is 120/80. He denies fever, chills, dizziness, syncope, URI symptoms, cough, SOB, chest pain, palpitations, abdominal pain, N/V/D/C, appetite loss, rash, edema. Patient was recently hospitalized at [facility] Jul 23- for hyperkalemia, hypertensive urgency, intractable N/V/ epigastric pain. Pt underwent LUE basilic vein AV fistula during that admission on 07/26/16. Physical Exam (per Admitting): General Appearance: WD/WN, no apparent distress, + pertinent finding ( cooperative 35 year old male, awake but slightly drowsy) Head: normocephalic, atraumatic Eyes: normal inspection, PERRL, EOMI ENT: hearing grossly normal, pharynx normal Neck: supple, trachea midline Respiratory/Chest: lungs clear, normal breath sounds, no respiratory distress, no accessory muscle use Cardiovascular: regular rate, rhythm, no murmur, normal peripheral pulses, + pertinent finding (permcath present left chest) Abdomen/GI: normal bowel sounds, non tender, soft Extremities/Musculoskelatal: no calf tenderness, normal capillary refill, no pedal edema Neurologic/Psych: alert, normal mood/affect, oriented x 3, + pertinent finding (grossly nonfocal) Skin: normal color, warm/dry Hospital Course HYPOTENSION noted after Permcath exchange by Dr. Aguirre on 09/06/16 Afebrile; no leukocytosis; no tachycardia; ESR- 19, procalcitonin- 1.71 lactic acid normal CXR- unremarkable, no infiltrate - no signs of infection BP improved with IV fluid bolus - Hydralazine discontinued continue usual BP medications except Hydralazine monitor BP as outpatient HYPERKALEMIA In setting of ESRD on HD K+ = 6.2 EKG shows NSR with peaked T waves Nephrology consulted; s/p HD on 09/06/16 K improved to 5.5 s/p HD 09/07/16 - continue usual HD schedule HYPOXIA CXR unremarkable resolved ESRD ON HD S/p PermCath exchange 09/06/[address] Aguirre CHRONIC ANEMIA Hg = 10.4; stable from 07/24/2016 CAD Stable; denies chest pain Continue aspirin ANXIETY/ DEPRESSION Continue home medications H/O GASTROPARESIS Continue Reglan GERD Continue PPI DVT PROPHYLAXIS SCD's DISPOSITION d/c home ff up with PCP next week continue usual HD schedule Total time spent on discharge = 40 MINUTES This includes examination of the patient, discharge planning, medication reconciliation, and communication with other providers. Discharge Instructions Discharge Instructions Admission Reason for Admission: Malfunctioning Perm Cath Discharge Discharge Diagnosis / Problem: HYPOTENSION, HYPERKALEMIA Discharge Goals Goal(s): Diagnostic testing, Therapeutic intervention Activity Recommendations Activity Limitations: as noted below (NO HEAVY EXERTION OR DRIVING UNTIL RE- EVALUATED BY PRIMARY CARE PHYSICIAN) . Instructions / Follow-Up Instructions / Follow-Up DISCONTINUE HYDRALAZINE. FOLLOWS INSTRUCTIONS WITH YOUR MEDICATIONS CAREFULLY. CALL PRIMARY CARE PHYSICIAN OR RETURN TO ER IMMEDIATELY IF WITH WEAKNESS, DIZZINESS, FEVER/CHILLS, COUGH, DIARRHEA, INCREASING PAIN/REDNESS/SWELLING OR BLEEDING ON YOUR PERMCATH SITE. FOLLOW UP WITH YOUR PRIMARY CARE PHYSICIAN NEXT WEEK. Current Hospital Diet Patient's current hospital diet: Renal Diet, AHA Diet (Heart Healthy) Discharge Diet Recommended Diet: AHA Diet (Heart Healthy), Renal Diet Procedures Procedures Performed: 09/06/16 Perm Cath Exchange, left int jugular, 27cm Fluroscopy for positioning Moderate Sedation ([id number]) Pending Studies Studies pending at discharge: no Medical Emergencies . Who to Call and When: Medical Emergencies: If at any time you feel your situation is an emergency, please call 911 immediately. . Non-Emergent Contact Non-Emergency issues call your: Primary Care Provider Call Non-Emergent contact if: you have a fever, your pain is not controlled, wound has increased drainage, wound has increased redness, wound has increased pain, you have any medication questions . Past History Medical & Surgical History: (1) Kidney transplant failure (2) Dialysis patient (3) ESRD (end stage renal disease) (4) Fistula (5) Depression (6) HTN (hypertension) (7) Thrombocytopenia (8) Anxiety (9) CAD (coronary artery disease) (10) Hyperkalemia (11) Intractable abdominal pain (12) Stented coronary artery (13) Kidney transplant status . "Provider Documentation" section prepared by Rony Salamanca. VTE Core Measure Inpt VTE Proph given/why not?: SCD's
[2016-11-21] MEDS ORDERED: KFZAV1 IV (09:06)
[2016-11-21] MEDS ORDERED: OXYC7.5T65 PO (10:52)
== END 2016-09-07 16:01 | disposition home or self-care (01) ==
LOC: ENRESERVDT → ENRESERVTM → C.ACU 11:12 → C.2T 14:07
PROVIDERS: ADMIT Surgery Vascular Surgery; ATTEND Internal Medicine
DX: I95.9 Hypotension, unspecified (principal); T82.41XA Breakdown (mechanical) of vascular dialysis catheter, initial encounter; Y84.8 Other medical procedures as the cause of abnormal reaction of the patient, or of later complication, without mention of misadventure at the time of the procedure; K31.84 Gastroparesis; N18.6 End stage renal disease; F41.8 Other specified anxiety disorders; R09.02 Hypoxemia; D64.9 Anemia, unspecified; K21.9 Gastro-esophageal reflux disease without esophagitis; D69.6 Thrombocytopenia, unspecified; Z94.0 Kidney transplant status; I12.0 Hypertensive chronic kidney disease with stage 5 chronic kidney disease or end stage renal disease; E87.5 Hyperkalemia; I25.10 Atherosclerotic heart disease of native coronary artery without angina pectoris; F32.9 Major depressive disorder, single episode, unspecified; Z95.5 Presence of coronary angioplasty implant and graft; Z79.82 Long term (current) use of aspirin; Z87.891 Personal history of nicotine dependence; Z79.899 Other long term (current) drug therapy; Z99.2 Dependence on renal dialysis; Z83.3 Family history of diabetes mellitus

== ENCOUNTER 2016-10-29 06:10 | Day surgery (SDC) | payer OTHER ==
[2016-10-16 11:26] VITALS: BMI 22.0
--- NOTE | 2016-10-28 16:28 | History and Physical ---
History & Physical Date of Service Oct 28, 2016. History & Physical CC: End stage renal disease HPI: Mr. Do states that he received his first kidney transplant at the age of 3. He said it functioned for over 20 years before it failed, then he went on hemodialysis. He states that he then underwent another renal transplant, and that one lasted only two years before failing on him. He states that he previously had two fistulas created in his left arm, the first one at his wrist , the second one in his left upper arm cephalic vein. 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 He denies any other complaints at this time, including headaches, fevers, chills, dizziness, chest pain, shortness of breath, abdominal pain, nausea, vomiting, diarrhea, constipation, dysuria, hematuria, rest pain, claudication, nonhealing wounds or ulcers or other complaints. He does state that he is interested in continuous ambulatory peritoneal dialysis at home; however, he has not gone through the training for that as of yet. He had a left upper extremity basilic vein fistula created and now is admitted for transposition. ALLERGIES: MINOXIDIL AND TERAZOSIN. HOME MEDICATIONS: Reconciled in the chart and include the following; amitriptyline, Benicar, clonidine patch, Coreg, hydralazine, lisinopril, Norvasc , pantoprazole, Reglan, Sensipar, and vitamin D3. PAST MEDICAL HISTORY: Positive for hypertension, end-stage renal disease on hemodialysis, gastroesophageal reflux disease. PAST SURGICAL HISTORY: Positive for renal transplant in 1984, renal transplant in 2012, creation of an arteriovenous fistula x2 in the left arm and insertion of a tunneled dialysis catheter. SOCIAL HISTORY: Positive for past history of tobacco use. The patient states he quit approximately 1 month ago. FAMILY HISTORY: Noncontributory. REVIEW OF SYSTEMS: Negative for fatigue, fevers, sweats, weight loss, exercise intolerance, abnormal moles or rashes, vision changes or photophobia, ear pain, sinus problems or sore throat, cough, shortness of breath, hemoptysis or wheezing, chest pain, palpitations, edema or syncope, abdominal pain, nausea, vomiting, diarrhea, constipation, dysuria, hematuria, muscle weakness, headaches , dizziness, numbness or seizures. PHYSICAL EXAMINATION: His vital signs are as follows; blood pressure 156/92 with a heart rate of 81, oxygen 98% on room air. Constitutional: In general, patient is a mildly chronically ill-appearing middle-aged male in no acute distress. He ambulates without assistance and is active, alert and oriented x4 with normal recent and remote memory. His head is normocephalic, atraumatic. Eyes are EOMI. His ENMT exam demonstrates no hearing loss, rhinorrhea or pharyngeal erythema. His neck is supple, nontender with midline trachea without masses or crepitus. Lung exam demonstrates no dyspnea. They are clear to auscultation bilaterally, although somewhat decreased throughout. His cardiovascular exam demonstrates a nondisplaced apical impulse with a regular rate and rhythm without murmurs, lifts, heaves, thrills or gallops. Peripheral pulses are full and equal in all extremities unless otherwise noted, specifically they are normal in his carotid, brachial, radial and femoral pulses. His bilateral lower extremities distal pulses are +2. He has brisk capillary refill and no sign of distal ischemia. The patient demonstrates no bruits in his carotid, abdominal or femoral area. His abdomen is soft, nontender with normoactive bowel sounds in all 4 quadrants without guarding or rebound. There is no flank or CVA tenderness. His musculoskeletal exam demonstrates normal tone and strength for age. His bilateral upper extremities demonstrate no cyanosis, edema, clubbing, varicosities or ulcers. His bilateral lower extremities demonstrate no cyanosis, edema, clubbing, varicosities or ulcers. Patient's left arm does demonstrate surgical incisions on his wrist as well as an antecubital surgical incision and a [id number] upper arm surgical incision as well. 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 Neurologic: Patient is grossly intact cranial nerves and grossly intact sensation. ASSESSMENT AND PLAN: End-stage renal disease on hemodialysis. Plan: Patient is admitted for a transposition of his left upper arm basilic vein fistula. I have discussed the risks options and benefits of the procedure with the patient. The patient understands the risks options and benefits and agrees to the procedure.
[~2016-10-29] VITALS: Ht 167.6 cm; Wt 61.4 kg
[2016-10-29] VITALS (8 sets, daily range): BP systolic 152–194; BP diastolic 95–111; PULSE 81–87; TEMP 36.7–37; O2SAT 92–99; Ht 167.6 cm; Wt 61.4 kg
[~2016-10-29 06:10] MED LIST changes: -D5W AND 1/4NSS 1,000 ML IV SCH; +HYDR-4717 PO; -HYDR100T12 PO; +LACTATED RINGER'S 1000ML 1,000 ML IV SCH; -LISI40TA PO; +NRN100 PO; +SODIUM CHLORIDE 0.9% 1000ML 1,000 ML IV SCH
[2016-10-29] MEDS ORDERED: LIDOCAINE HCL 2% 2 ML VIAL (20MG/ML) ONE (06:53)
[2016-10-29] MEDS ORDERED: PROPOFOL IV EMULSION 10 MG/ML 20 ML VIAL IV ONE (06:53)
[2016-10-29] MEDS ORDERED: MIDAZOLAM HCL 1 MG/ML 2ML VIAL ONE (06:54)
[2016-10-29] MEDS ORDERED: FENTANYL CITRATE INJ 50 MCG/1 ML 2 ML VIAL ONE ×3 (06:54→10:37)
[2016-10-29] MEDS ORDERED: GELATIN SPONGE 12-7MM ONE (07:04)
[2016-10-29] MEDS ORDERED: BUPIVACAINE/EPINEPHRINE 0.5% MPF 1:200,000 30 ML VIAL ONE ×2 (07:04→07:25)
[2016-10-29] MEDS ORDERED: THROMBIN FOR SOLN 20000 UNIT KIT ONE (07:04)
[2016-10-29] MEDS ORDERED: HEPARIN SOD (PORCINE) 1000 UNIT/ML 10 ML VIAL ONE ×3 (07:04→10:26)
[2016-10-29] MEDS ORDERED: LIDOCAINE HCL 1% 20 ML VIAL ONE ×2 (07:04→07:24)
[2016-10-29] MEDS ORDERED: GELATIN SPONGE SZ 100 ONE (07:05)
[2016-10-29 07:06] LABS: CALCIUM 8.6 mg/dl (8.5-10.1); POTASSIUM 5.6 mmol/L (3.5-5.1)
[2016-10-29] MEDS ORDERED: EpHEDrine SULFATE INJ 50 MG/ML AMP IV PRN (08:00)
[2016-10-29] MEDS ORDERED: ATROPINE SULFATE 0.1 MG/ML 5ML SYR IV PRN (08:00)
[2016-10-29] MEDS ORDERED: EpHEDrine SULFATE 50MG/5ML SYR ONE (09:17)
[2016-10-29] MEDS ORDERED: EpHEDrine SULFATE INJ 50 MG/ML AMP ONE (09:19)
--- NOTE | 2016-10-29 10:15 | [facility] Post Operative Brief Note ---
Immediate Operative Summary Operative Date Oct 29, 2016. Pre-Operative Diagnosis End Stage Renal Disease Post-Operative Diagnosis same as pre-operative Procedure(s) Performed Left Upper Extremity Basilic Vein Transposition, Second Stage Surgeon Dr. Ziggy Aguirre Wagon Driver Salesperson Surgeon(s) Olive Napier PA-C, Dr. Sergio Sung Estimated Blood Loss 150ml Findings good thrill Specimens none Anesthesia General Complication(s) None Disposition Recovery Room / PACU
[2016-10-29] MEDS ORDERED: OXYC-57 PO (10:17)
--- NOTE | 2016-10-29 10:18 | Discharge Instructions ---
Discharge Instructions Date of Service Oct 29, 2016. Visit Reason for Visit: End Stage Renal Disease -On Hemodialysis Discharge Discharge Diagnosis / Problem: End stage renal disease Discharge Goals Goal(s): Therapeutic intervention Activity Recommendations Activity Limitations: per Instructions/Follow-up section Anesthesia . Post Anesthesia Instructions: If you have had General Anesthesia or IV Sedation: * Do not drive today. * Resume driving when surgeon permits. * Do not make important decisions or sign legal documents today. * Call surgeon for: 1. Temperature elevations greater than 101 degrees F. 2. Uncontrollable pain. 3. Excessive bleeding. 4. Persistent nausea and vomiting. 5. Medication intolerance (nausea, vomiting or rash). * For nausea and vomiting use only clear liquids such as: tea, soda, bouillon until nausea subsides, then gradually increase diet as tolerated. * If you have any concerns or questions, call your surgeon's office. If physician is unavailable and it is an emergency, call 911 or go to the nearest emergency room. . Instructions / Follow-Up Instructions / Follow-Up Call [phone] to schedule a follow up appointment if one not already scheduled. ACTIVITY RECOMMENDATIONS: See Above SPECIAL CARE INSTRUCTIONS: Call your doctor if: * Temperature above 101 degrees * Pain not relieved by pain medicine ordered * There is increased drainage or redness from any incision * You have any unanswered questions or concerns. Diet Recommendations Recommended Home Diet: resume previous diet Procedures Procedures Performed: Left Upper Extremity Basilic Vein Transposition, Second Stage Pending Studies Studies pending at discharge: no Medical Emergencies . Who to Call and When: Medical Emergencies: If at any time you feel your situation is an emergency, please call 911 immediately. . Non-Emergent Contact Non-Emergency issues call your: Surgeon . . "Provider Documentation" section prepared by Ziggy Aguirre. [place] Drug Monitoring Program Search Results: patient reviewed within database, no issues identified
[2016-10-29] MEDS ORDERED: DEXAMETHASONE SOD INJ 4 MG/ML VIAL ONE (10:25)
[2016-10-29] MEDS ORDERED: GLYCOPYRROLATE INJ 0.2 MG/ML VIAL ONE (10:25)
[2016-10-29] MEDS: FENTANYL CITRATE INJ 50 MCG/1 ML 2 ML VIAL IV PRN ×4 (11:18→11:33)
--- NOTE | 2016-10-29 11:18 | Anesthesiology Progress Note ---
Anesthesia Post Op Note Date & Time Oct 29, 2016 at 11:17 Vital Signs Pain Intensity: 0 Vital Signs Past 12 Hours Date Time Temp Pulse Resp B/P Pulse Ox O2 Delivery O2 Flow Rate FiO2 10/29/16 06:33 36.7 84 22 194/110 92 Room Air Notes Mental Status: alert / awake / arousable, participated in evaluation Pt Amnestic to Procedure: Yes Nausea / Vomiting: adequately controlled Pain: adequately controlled Airway Patency, RR, SpO2: stable & adequate BP & HR: stable & adequate Hydration State: stable & adequate Anesthetic Complications: no major complications apparent
--- NOTE | 2016-10-29 11:19 | Medical Student: [facility] ---
Immediate Operative Summary Operative Date Oct 29, 2016. Pre-Operative Diagnosis ESRD Post-Operative Diagnosis same Procedure(s) Performed Transposition of LUE basilic vein, second stage Surgeon Dr. Aguirre Flight Operations Dispatch Clerk Surgeon(s) Dr. Sung, Olive Napier PA-C Estimated Blood Loss 150cc Findings palpable left basilic vein thrill after transposition Specimens none Anesthesia general Complication(s) None Disposition Recovery Room / PACU
--- NOTE | 2016-10-29 11:28 | OPERATIVE REPORT ---
DATE OF OPERATION: 10/29/2016 PREOPERATIVE DIAGNOSIS: End-stage renal disease on hemodialysis. POSTOPERATIVE DIAGNOSIS: Same. PROCEDURE: Second stage basilic vein transposition. SURGEON: Ziggy Aguirre M.D. CONSUMER INSIGHTS INTERN: Rae Sung M.D. and Olive Napier PA-C. ANESTHESIA: General with LMA. FLUIDS: 350 mL. URINE OUTPUT: Not recorded. ESTIMATED BLOOD LOSS: 200. COMPLICATIONS: None apparent. CONDITION: Stable to PACU. INDICATIONS: Mr. Do is a 36-year-old male with end-stage renal disease currently on hemodialysis via a tunneled line. He previously had a radiocephalic fistula and then a brachiocephalic fistula; however these failed. He had undergone a first stage brachiobasilic fistula and comes back today for transposition. He was advised of the risks and benefits and agreed to undergo the procedure. PROCEDURE: The patient was brought into the operative suite. He was prepped and draped in the usual fashion. A timeout occurred. Incision was made over the fistula near the scar from the arterial anastomosis. The fistula was identified and dissected proximally to the axilla. Care was taken to avoid nerves. Once the fistula had been dissected up to the axilla it was then freed circumferentially. All branches were ligated using 3-0 silks. It was pulled from between the veins. Appropriate tunnel site was chosen. A skip incision was created and the fistula was tunneled subcutaneously to the new anastomotic site. Then, the fistula was cut for length. The brachial artery was then exposed at the new anastomotic site. Heparin 5000 units was instilled. The artery was clamped proximally and distally. An arteriotomy was performed with an 11 blade and extended with Stewart scissors. The fistula was then sewn end-to-side fashion. The anastomosis was inspected for hemostasis. Repair stitches were placed and once hemostasis was obtained, the fistula was examined for thrill. It had a strong thrill. At this point, the entire wound was inspected for hemostasis and was obtained. The wound was closed and the patient was awoken and transferred to the PACU. He tolerated the procedure well. Dr. Ziggy Aguirre was present and scrubbed for the entirety of this case. I attest to the content of the Intraoperative Record and any orders documented therein. Any exceptio ns are noted below.
[2016-10-29] MEDS ORDERED: NURSING VERBAL MED ORDER ONE ×2 (12:02→12:59)
[2016-10-29] MEDS ORDERED: HYDROmorphone INJ 0.5 MG/0.5 ML SYR ONE (12:09)
[2016-10-29] MEDS ORDERED: OXYCODONE/ACETAMINOPHEN 5-325 TAB ONE (13:08)
[2016-11-21] MEDS ORDERED: KFZAV1 IV (09:06)
[2016-11-21] MEDS ORDERED: OXYC7.5T65 PO (10:52)
== END 2016-10-29 13:58 | disposition home or self-care (01) ==
LOC: C.ACU 06:10
PROVIDERS: ATTEND Surgery Vascular Surgery
DX: T82.898A Other specified complication of vascular prosthetic devices, implants and grafts, initial encounter (principal); N18.6 End stage renal disease; I12.0 Hypertensive chronic kidney disease with stage 5 chronic kidney disease or end stage renal disease; Y84.8 Other medical procedures as the cause of abnormal reaction of the patient, or of later complication, without mention of misadventure at the time of the procedure; Z99.2 Dependence on renal dialysis; Z94.0 Kidney transplant status; K21.9 Gastro-esophageal reflux disease without esophagitis

== ENCOUNTER 2016-11-16 11:47 | Inpatient (IN) | payer OTHER ==
[~2016-11-16] VITALS: Ht 167.6 cm; Wt 65.0 kg
[~2016-11-16 11:47] MED LIST changes: -CEFAZOLIN 1000MG/55 ML D5W IV SCH; -LACTATED RINGER'S 1000ML 1,000 ML IV SCH; +OXYC-57 PO; -SODIUM CHLORIDE 0.9% 1000ML 1,000 ML IV SCH
[2016-11-16] MEDS ORDERED: VANCOMYCIN INJ 1,000 MG in SODIUM CHLORIDE 0.9% 250ML 250 ML IV STA (12:06)
[2016-11-16 12:22] LABS: BASO ABS # 0.07 K/uL (0-0.2); COMPLETE YES; EOS % 6.1 %; HEMATOCRIT 33.9 % (42-52); IG% 0.1 %; LYMPH % 16.3 %; LYMPH ABS # 1.17 K/uL (1.2-3.4); MEAN CORPUSCULAR HEMOGLOBIN 30.8 pg (25-34); MEAN CORPUSCULAR HGB CONC 32.4 g/dl (32-36); MEAN PLATELET VOLUME 10.4 fL (7.4-10.4); MONO % 8.5 %; PLATELET COUNT 245 K/uL (130-400); RED BLOOD COUNT 3.57 M/uL (4.7-6.1); WHITE BLOOD COUNT 7.18 K/uL (4.8-10.8)
[2016-11-16 12:32] LABS: INR 1.1 (0.9-1.1); PARTIAL THROMBOPLASTIN RATIO 1.4; PROTHROMBIN TIME (PATIENT) 11.8 SECONDS (9.0-12.0)
--- NOTE | 2016-11-16 12:43 | DIAGNOSTIC IMAGING REPORT ---
CHEST ONE VIEW PORTABLE HISTORY: Sepsis COMPARISON: Chest 09/06/2016. FINDINGS: Cardiac silhouette is borderline enlarged. No focal lung consolidations. No evidence for pulmonary edema. No pleural effusions. No pneumothorax. Surgical clips at the left arm. Left jugular catheter terminates in the SVC. IMPRESSION: Borderline enlargement of the cardiac silhouette. Otherwise, no acute process within the chest. Electronically signed by: Morgan Paris M.D. 11/16/2016 12:41 PM Dictated Date/Time: 11/16/2016 12:40 PM
[2016-11-16] MEDS ORDERED: AMOX875T PO (12:45)
[2016-11-16] MEDS ORDERED: MoRPHine SULFATE 2 MG/ML CARP IV STA (12:52)
[2016-11-16] MEDS ORDERED: ONDANSETRON INJ 2 MG/ML 2 ML VIAL IV STA (12:52)
[2016-11-16 12:58] LABS: ALB/GLOB RATIO 0.6 (0.9-2); BUN/CREATININE RATIO 3.8 (10-20); CALCIUM 9.5 mg/dl (8.5-10.1); POTASSIUM 4.6 mmol/L (3.5-5.1)
[2016-11-16 14:01] VITALS: O2SAT 91; Ht 167.6 cm; Wt 65.0 kg
[2016-11-16] MEDS ORDERED: MoRPHine SULFATE 4 MG/ML 1 ML CARP\\VIAL IV STA (14:07)
[2016-11-16] MEDS ORDERED: HYDROmorphone INJ 1 MG/ML SYR ONE (15:10)
[2016-11-16] MEDS ORDERED: HYDROmorphone INJ 1 MG/ML SYR IV ONE ×2 (15:15→20:30)
[2016-11-16] MEDS ORDERED: ACETAMINOPHEN 325 MG TAB PO PRN (15:15)
[2016-11-16] MEDS ORDERED: HYDROmorphone INJ 1 MG/ML SYR IV PRN (15:15)
--- NOTE | 2016-11-16 15:19 | History and Physical ---
History & Physical Date & Time of Service: Nov 16, 2016 at 15:18 . Chief Complaint: left arm pain . Primary Care Physician: Fanny Chen M.D. . History of Present Illness Source: patient, clinic records, hospital records 36 YO male followed by Dr. Fanny Chen for Internal Medicine and Dr. Restrepo for Nephrology. History of chronic kidney disease, s/p failed transplant. Other medical problems as noted below. Received hemodialysis on via dialysis catheter. A-V fistula performed on 10/29/16. Develop some erythema around the surgical wound and started on amoxicillin / clavulanic acid. Worsening pain and swelling of LUE; now has purulent drainage from the wound. No fever, chills, sweats. Pain is severe- 9/10; Percocet doesn't help. . Past Medical/Surgical History Chronic Medical Problems: (1) Anxiety Status: Chronic (2) CAD (coronary artery disease) Permanent Comment: s/p stent placement Status: Chronic (3) Chronic kidney disease (CKD), stage V Permanent Comment: history glomerulonephritis Status: Chronic (4) Depression Status: Chronic (5) Dialysis patient Status: Chronic (6) Fistula Status: Chronic (7) HTN (hypertension) Status: Chronic (8) Kidney transplant failure Status: Chronic (9) Thrombocytopenia Status: Chronic Surgical Problems: (1) Kidney transplant status Permanent Comment: R 1984 and L 2012 Status: Chronic (2) Status post AV fistula LUE Permanent Comment: 10/29/16 Status: Chronic (3) Stented coronary artery Permanent Comment: stents x 2 in [place] in 2006 and 2010 Status: Chronic PMH / PSH reviewed and updated. . Family History Diabetes mellitus FATHER Hypertension FATHER MOTHER Kidney disease FATHER MOTHER Reviewed and updated. . Social History Reviewed and updated. . Smoking Status: Current Every Day Smoker Alcohol Use: occasionally Drug Use: none Immunizations History of Influenza Vaccine: Yes Influenza Vaccine Date: Apr 05, 2016 History of Tetanus Vaccine?: Yes Tetanus Immunization Date: Feb 12, 2014 History of Pneumococcal: Yes Pneumococcal Date: Feb 12, 2014 Allergies Coded Allergies: Minoxidil (Verified Adverse Reaction, Intermediate, priapism, 11/16/16) Prednisone (Verified Adverse Reaction, Intermediate, SEVERE GI UPSET, CONSTIPATION, 11/16/16) PER RECORDS Terazosin (Verified Adverse Reaction, Intermediate, priapism, 11/16/16) Home Medications Scheduled Alprazolam (Xanax), 0.5 MG PO UD Amitriptyline HCl (Amitriptyline HCl), 25 MG PO HS Amlodipine (Norvasc), 10 MG PO QAM Amoxicillin & Pot Clavulanate (Augmentin 875-125 mg), 1 TAB PO BID Aspirin (Aspirin Ec), 81 MG PO QAM Carvedilol (Carvedilol), 25 MG PO BID Cholecalciferol (Vitamin D3), 3,000 UNITS PO DAILY Cinacalcet (Sensipar), 30 MG PO QPM Clonidine Hcl (Catapres), 0.4 MG PO TID Clonidine Hcl (Clonidine Hcl), 1 PATCH EXT WK Gabapentin (Gabapentin), 100 MG PO TID Hydralazine HCl (Hydralazine HCl), 50 MG PO TID Labetalol HCl (Labetalol HCl), 200 MG PO BID Metoclopramide (Reglan), 10 MG PO AC Pantoprazole (Protonix), 40 MG PO BID Sertraline (Zoloft), 50 MG PO QAM Sevelamer Hydroch (Renagel), 3,200 MG PO TIDM Trazodone Hcl (Trazodone), 50 MG PO HS Scheduled PRN Calcium Carbonate (Tums), 500 MG PO DAILY PRN for heartburn Oxycodone/Acetaminophen 5MG/325MG (Percocet 5MG/325MG), 2 TABLETS PO Q4H PRN for Pain Review of Systems Constitutional: + chills, + fever, + weight loss Eyes: + diplopia, + worsening of vision ENT: + nasal symptoms, + sore throat Respiratory: + cough, + shortness of breath, + wheezing Cardiovascular: + chest pain, + edema, + palpitations Abdomen: + nausea, + vomiting, No GI bleeding, No diarrhea, No pain Musculoskeletal: + problem reported (LUE pain) Genitourinary - Male: + problem reported (anuric) Psychiatric: + depression symptoms Endocrine: + fatigue, No excessive thirst, No excessive urination Integumentary: No itch, No new/changing skin lesions, No rash Physical Exam Vital Signs Date Time Temp Pulse Resp B/P Pulse Ox O2 Delivery O2 Flow Rate FiO2 11/16/16 14:54 80 16 130/92 95 Room Air 11/16/16 14:01 91 Room Air 11/16/16 14:00 79 133/98 91 11/16/16 13:12 86 11/16/16 12:26 93 18 140/99 94 Room Air 11/16/16 12:26 98 Room Air 11/16/16 12:08 37.0 11/16/16 11:50 36.7 111 20 147/95 99 Room Air General Appearance: WD/WN, + mild distress Head: normocephalic, atraumatic Eyes: normal inspection, PERRL, EOMI, sclerae normal, + pertinent finding ( conjunctivae pink) ENT: normal ENT inspection, hearing grossly normal, pharynx normal Neck: supple, no adenopathy, thyroid normal, no JVD, trachea midline Respiratory/Chest: lungs clear, no respiratory distress, no accessory muscle use, + pertinent finding (dialysis cather with exit site inferior to left clavicle) Cardiovascular: regular rate, rhythm, no edema, no gallop, no JVD, no murmur, normal peripheral pulses Abdomen/GI: normal bowel sounds, non tender, soft, no organomegaly, no pulsatile mass Extremities/Musculoskelatal: normal inspection, no calf tenderness, normal capillary refill, no pedal edema, + pertinent finding (incision LUE, stapled, purulent drainage, surrounding erythema and tenderness) Neurologic/Psych: head resident II-XII nml as tested (PERRL, EOMI, no dysathria, no facial palsy), no motor/sensory deficits (motor strength grossly intact), alert , normal mood/affect, oriented x 3 Skin: normal color, warm/dry, no rash Lymphatic: no adenopathy (cervical) Diagnostics Laboratory Results Results Past 24 Hours Test 11/16/16 12:05 11/16/16 12:15 Range/Units White Blood Count 7.18 4.8-10.8 K/uL Red Blood Count 3.57 4.7-6.1 M/uL Hemoglobin 11.0 14.0-18.0 g/dL Hematocrit 33.9 42-52 % Mean Corpuscular Volume 95.0 80-100 fL Mean Corpuscular Hemoglobin 30.8 25-34 pg Mean Corpuscular Hemoglobin Concent 32.4 32-36 g/dl Platelet Count 245 130-400 K/uL Mean Platelet Volume 10.4 7.4-10.4 fL Neutrophils (%) (Auto) 68.0 % Lymphocytes (%) (Auto) 16.3 % Monocytes (%) (Auto) 8.5 % Eosinophils (%) (Auto) 6.1 % Basophils (%) (Auto) 1.0 % Neutrophils # (Auto) 4.88 1.4-6.5 K/uL Lymphocytes # (Auto) 1.17 1.2-3.4 K/uL Monocytes # (Auto) 0.61 0.11-0.59 K/uL Eosinophils # (Auto) 0.44 0-0.5 K/uL Basophils # (Auto) 0.07 0-0.2 K/uL RDW Standard Deviation 49.9 36.4-46.3 fL RDW Coefficient of Variation 14.4 11.5-14.5 % Immature Granulocyte % (Auto) 0.1 % Immature Granulocyte # (Auto) 0.01 0.00-0.02 K/uL Prothrombin Time 11.8 9.0-12.0 SECONDS Prothromb Time International Ratio 1.1 0.9-1.1 Activated Partial Thromboplast Time 35.9 21.0-31.0 SECONDS Partial Thromboplastin Ratio 1.4 Sodium Level 138 136-145 mmol/L Potassium Level 4.6 3.5-5.1 mmol/L Chloride Level 99 98-107 mmol/L Carbon Dioxide Level 30 21-32 mmol/L Anion Gap 9.0 3-11 mmol/L Blood Urea Nitrogen 34 7-18 mg/dl Creatinine 9.00 0.60-1.40 mg/dl Est Creatinine Clear Calc Drug Dose 10.0 ml/min Estimated GFR () 7.7 Estimated GFR (Non- 6.7 BUN/Creatinine Ratio 3.8 10-20 Random Glucose 107 70-99 mg/dl Calcium Level 9.5 8.5-10.1 mg/dl Total Bilirubin 0.3 0.2-1 mg/dl Aspartate Amino Transf (AST/SGOT) 16 15-37 U/L Alanine Aminotransferase (ALT/SGPT) 14 12-78 U/L Alkaline Phosphatase 99 45-117 U/L Total Protein 9.2 6.4-8.2 gm/dl Albumin 3.5 3.4-5.0 gm/dl Globulin 5.7 2.5-4.0 gm/dl Albumin/Globulin Ratio 0.6 0.9-2 Bedside Lactic Acid Venous 0.75 0.90-1.70 mmol/L Microbiology Results 11/16/16 Blood Culture, Received Pending 11/16/16 Blood Culture, Received Pending Diagnostic Radiology CHEST ONE VIEW PORTABLE FINDINGS: Cardiac silhouette is borderline enlarged. No focal lung consolidations. No evidence for pulmonary edema. No pleural effusions. No pneumothorax. Surgical clips at the left arm. Left jugular catheter terminates in the SVC. IMPRESSION: Borderline enlargement of the cardiac silhouette. Otherwise, no acute process within the chest. Electronically signed by: Morgan Paris M.D. 11/16/2016 12:41 PM Dictated Date/Time: 11/16/2016 12:40 PM . Impression Assessment and Plan WOUND INFECTION LEFT UPPER EXTREMITY Does not appear to be septic. Wound culture and blood cultures obtained. Received IV vancomycin in ED which will be continued. Add IV piperacillin / tazobactam for gram negative coverage. Consult Vascular Surgery- ED physician discussed case with them. CORONARY ARTERY DISEASE No anginal symptoms. Continue aspirin, beta parul. HYPERTENSION Difficult to control hypertension, currently on carvedilol, labetalol, amlodipine, hydralazine, oral + topical clonidine. May be able to stop carvedilol or labetalol and titrate remaining med- will defer to Nephrology. CKD V Consult Nephrology for hemodialysis management VTE PROPHYLAXIS Moderate risk for VTE. SQ heparin. Ambulate. RESUSCITATION STATUS Full code. DISPOSITION Admit to Med-Surg Unit. Expected discharge to home. Internal Medicine follow-up with Dr. Fanny Chen. Nephrology follow-up with Dr. Restrepo. . Advanced Directives Existing Living Will: No Existing Power of Cartographic Technician: No VTE Prophylaxis VTE Risk Assessment Done? Y/N: Yes Risk Level: Moderate Given or contraindicated: Unfractionated heparin SQ
[2016-11-16] MEDS ORDERED: PIPERACILLIN/TAZOBACTAM 4.5 GM/100ML D5W IV STA (15:23)
[2016-11-16] MEDS ORDERED: APR50 PO (15:48)
[2016-11-16] MEDS ORDERED: CRG25 PO (15:52)
[2016-11-16] MEDS ORDERED: AMT25 PO (15:52)
[2016-11-16] MEDS: OXYCODONE/ACETAMINOPHEN 5-325 TAB PO PRN (18:01)
--- NOTE | 2016-11-16 18:23 | EMERGENCY ROOM VISIT NOTE ---
History Report prepared by Shaggy: Concepcion Alvarez Under the Supervision of: Dr. Mao Crump M.D. First contact with patient: 11:56 Chief Complaint: INFECTION Stated Complaint: LEFT ARM PAIN, DRAINAGE IS GREEN, NUMBNESS, NAUSEA History of Present Illness The patient is a 36 year old male who presents to the Emergency Room with complaints of worsening infection to left upper arm beginning on October 29. The patient underwent left arm fistula surgery on October [address] Aguirre. Since then he has been experiencing pain to the surgical site. He has also been experiencing drainage which became green this morning. He did follow up with ETHAN Duvall 2 days ago and was put on amoxicillin. The patient has been vomiting intermittently since surgery but states that he has chronic vomiting from gastroparesis. He denies chest pain, trouble breathing or fevers. He has swelling to the upper arm but denies swelling to the distal arm. Source of History: patient Onset: October 29 Position: arm (left) Symptom Intensity: moderate Quality: other (infection) Timing: worsening Modifying Factors (Relieving): other (none) Associated Symptoms: + vomiting, No chest pain, No fevers Note: Patient has green drainage from surgical site. Review of Systems See HPI for pertinent positives & negatives. A total of 10 systems reviewed and were otherwise negative. Past Medical & Surgical Medical Problems: (1) Anxiety (2) Arteriovenous fistula infection (3) CAD (coronary artery disease) (4) Depression (5) Dialysis patient (6) ESRD (end stage renal disease) (7) Fistula (8) HTN (hypertension) (9) Hypertensive urgency (10) Hypotension (11) Kidney transplant failure (12) Thrombocytopenia Surgical Problems: (1) Kidney transplant status (2) Stented coronary artery Family History FH: diabetes mellitus FH: kidney disease Social History Smoking Status: Current Every Day Smoker Alcohol Use: none Drug Use: none Housing Status: lives alone Current/Historical Medications Scheduled Alprazolam (Xanax), 0.5 MG PO UD Amitriptyline HCl (Amitriptyline HCl), 25 MG PO HS Amlodipine (Norvasc), 10 MG PO QAM Amoxicillin & Pot Clavulanate (Augmentin 875-125 mg), 1 TAB PO BID Aspirin (Aspirin Ec), 81 MG PO QAM Carvedilol (Carvedilol), 25 MG PO BID Cholecalciferol (Vitamin D3), 3,000 UNITS PO DAILY Cinacalcet (Sensipar), 30 MG PO QPM Clonidine Hcl (Catapres), 0.4 MG PO TID Clonidine Hcl (Clonidine Hcl), 1 PATCH EXT WK Gabapentin (Gabapentin), 100 MG PO TID Hydralazine HCl (Hydralazine HCl), 50 MG PO TID Labetalol HCl (Labetalol HCl), 200 MG PO BID Metoclopramide (Reglan), 10 MG PO AC Pantoprazole (Protonix), 40 MG PO BID Sertraline (Zoloft), 50 MG PO QAM Sevelamer Hydroch (Renagel), 3,200 MG PO TIDM Trazodone Hcl (Trazodone), 50 MG PO HS Scheduled PRN Calcium Carbonate (Tums), 500 MG PO DAILY PRN for heartburn Oxycodone/Acetaminophen 5MG/325MG (Percocet 5MG/325MG), 2 TABLETS PO Q4H PRN for Pain Allergies Coded Allergies: Minoxidil (Verified Adverse Reaction, Intermediate, priapism, 11/16/16) Prednisone (Verified Adverse Reaction, Intermediate, SEVERE GI UPSET, CONSTIPATION, 11/16/16) PER RECORDS Terazosin (Verified Adverse Reaction, Intermediate, priapism, 11/16/16) Physical Exam Vital Signs Date Time Temp Pulse Resp B/P Pulse Ox O2 Delivery O2 Flow Rate FiO2 11/16/16 14:54 80 16 130/92 95 Room Air 11/16/16 14:01 91 Room Air 11/16/16 14:00 79 133/98 91 11/16/16 13:12 86 11/16/16 12:26 93 18 140/99 94 Room Air 11/16/16 12:26 98 Room Air 11/16/16 12:08 37.0 11/16/16 11:50 36.7 111 20 147/95 99 Room Air Physical Exam Constitutional: Vital signs reviewed. Eyes: Pupils are equal round reactive to light. Conjunctiva are noninjected. ENT: Pharynx is clear without erythema or exudate. Mucous membranes are moist. Neck supple without meningeal signs. Respiratory: Clear to auscultation bilaterally. Breath sounds are equal bilaterally. Cardiovascular: Regular rate and rhythm. No rubs or gallops. GI: Soft, nondistended and nontender. Bowel sounds are present. Musculoskeletal: Significant swelling to left upper arm at surgical site with ilda in place and purulent drainage from lower part of wound. No significant increased warmth. No significant swelling distally. Normal distal pulses. Integumentary: As above. Neurological: The patient is awake and alert. No focal deficits. Psychiatric: Normal affect. Medical Decision & Procedures ER Provider Diagnostic Interpretation: X-ray results as stated below per interpretation by me and the radiologist: CHEST ONE VIEW PORTABLE HISTORY: Sepsis COMPARISON: Chest 09/06/2016. FINDINGS: Cardiac silhouette is borderline enlarged. No focal lung consolidations. No evidence for pulmonary edema. No pleural effusions. No pneumothorax. Surgical clips at the left arm. Left jugular catheter terminates in the SVC. IMPRESSION: Borderline enlargement of the cardiac silhouette. Otherwise, no acute process within the chest. Electronically signed by: Morgan Paris M.D. 11/16/2016 12:41 PM Dictated Date/Time: 11/16/2016 12:40 PM Laboratory Results 11/16/16 12:05 Red Blood Count 3.57, Mean Corpuscular Volume 95.0, Mean Corpuscular Hemoglobin 30.8, Mean Corpuscular Hemoglobin Concent 32.4, Mean Platelet Volume 10.4, Neutrophils (%) (Auto) 68.0, Lymphocytes (%) (Auto) 16.3, Monocytes (%) (Auto) 8.5, Eosinophils (%) (Auto) 6.1, Basophils (%) (Auto) 1.0, Neutrophils # (Auto) 4.88, Lymphocytes # (Auto) 1.17, Monocytes # (Auto) 0.61, Eosinophils # (Auto) 0.44, Basophils # (Auto) 0.07 11/16/16 12:05 Test 11/16/16 12:05 11/16/16 12:15 White Blood Count 7.18 K/uL (4.8-10.8) Red Blood Count 3.57 M/uL (4.7-6.1) Hemoglobin 11.0 g/dL (14.0-18.0) Hematocrit 33.9 % (42-52) Mean Corpuscular Volume 95.0 fL (80-100) Mean Corpuscular Hemoglobin 30.8 pg (25-34) Mean Corpuscular Hemoglobin Concent 32.4 g/dl (32-36) Platelet Count 245 K/uL (130-400) Mean Platelet Volume 10.4 fL (7.4-10.4) Neutrophils (%) (Auto) 68.0 % Lymphocytes (%) (Auto) 16.3 % Monocytes (%) (Auto) 8.5 % Eosinophils (%) (Auto) 6.1 % Basophils (%) (Auto) 1.0 % Neutrophils # (Auto) 4.88 K/uL (1.4-6.5) Lymphocytes # (Auto) 1.17 K/uL (1.2-3.4) Monocytes # (Auto) 0.61 K/uL (0.11-0.59) Eosinophils # (Auto) 0.44 K/uL (0-0.5) Basophils # (Auto) 0.07 K/uL (0-0.2) RDW Standard Deviation 49.9 fL (36.4-46.3) RDW Coefficient of Variation 14.4 % (11.5-14.5) Immature Granulocyte % (Auto) 0.1 % Immature Granulocyte # (Auto) 0.01 K/uL (0.00-0.02) Prothrombin Time 11.8 SECONDS (9.0-12.0) Prothromb Time International Ratio 1.1 (0.9-1.1) Activated Partial Thromboplast Time 35.9 SECONDS (21.0-31.0) Partial Thromboplastin Ratio 1.4 Anion Gap 9.0 mmol/L (3-11) Est Creatinine Clear Calc Drug Dose 10.0 ml/min Estimated GFR () 7.7 Estimated GFR (Non- 6.7 BUN/Creatinine Ratio 3.8 (10-20) Calcium Level 9.5 mg/dl (8.5-10.1) Total Bilirubin 0.3 mg/dl (0.2-1) Aspartate Amino Transf (AST/SGOT) 16 U/L (15-37) Alanine Aminotransferase (ALT/SGPT) 14 U/L (12-78) Alkaline Phosphatase 99 U/L (45-117) Total Protein 9.2 gm/dl (6.4-8.2) Albumin 3.5 gm/dl (3.4-5.0) Globulin 5.7 gm/dl (2.5-4.0) Albumin/Globulin Ratio 0.6 (0.9-2) Bedside Lactic Acid Venous 0.75 mmol/L (0.90-1.70) Laboratory results as reviewed by me. Medications Administered Medications (Trade) Dose Ordered Sig/Betsy Route Start Time Stop Time Status Last Admin Dose Admin Vancomycin HCl/ Sodium Chloride (Vancomycin Inj/ Nss 250ml) 270 ml @ 125 mls/hr NOW STAT IV 11/16/16 12:06 11/16/16 14:15 DC 11/16/16 12:25 125 MLS/HR Morphine Sulfate (MoRPHine SULFATE INJ) 2 mg NOW STAT IV 11/16/16 12:52 11/16/16 12:53 DC 11/16/16 12:57 2 MG Ondansetron HCl (Zofran Inj) 4 mg NOW STAT IV 11/16/16 12:52 11/16/16 12:53 DC 11/16/16 12:56 4 MG Morphine Sulfate (MoRPHine SULFATE INJ) 4 mg NOW STAT IV 11/16/16 14:07 11/16/16 14:08 DC 11/16/16 14:14 4 MG ED Course 1157: The patient was evaluated in room C9. A complete history and physical exam was performed. 1205: I spoke with Dr. Aguirre - Vascular Surgery about the patient. He would like the patient to be hospitalized for IV antibiotics. He does not feel ultrasound of arm was needed to evaluate the fistula. 1206: Vancomycin HCl 1,000 mg/ Sodium Chloride 270 ml @ 125 mls/hr IV. 1252: Zofran Inj 4 mg IV, Morphine Sulfate Inj 2 mg IV. 1305: I spoke with Dr. Saavedra of [facility]. We discussed the patient and his results. The patient will be further evaluated by Dr. Saavedra - ab. 1310: I reevaluated the patient and discussed Dr. Aguirre recommendations. 1406: The patient is requesting more pain medication. 1407: Morphine Sulfate Inj 4 mg IV. Medical Decision This is a 36 year old male who presents with arm pain. Differential diagnosis includes wound infection, cellulitis, DVT, post op pain, abscess. I did perform a limited focused review of portions of the patient's old chart on the electronic medical record. The patient had second stage fistula vein transfusion on October [address] Aguirre. I did evaluate the patient as noted above. The patient has significant pain to his left arm where he recently had surgery. There is also some purulent drainage. I did discuss the case with Dr. Aguirre who recommended admission for IV antibiotics. He did not feel an ultrasound or any surgical intervention was indicated. IV access was established. I did treat the patient with IV morphine and Zofran. I did order and personally review the patient's chest x- ray as described above. I did order 2 sets of blood cultures. I did treat him with IV vancomycin. I did order and review the patient's blood work as noted in the electronic medical record. His creatinine is 9 which is consistent with his end-stage renal disease. He does have some anemia as well. He was given additional morphine for his pain. I did discuss the case with the hospitalist and caser shoe parts. Consults Time Called: 1204 Consulting Physician: Dr. Aguirre - Vascular Surgery Returned Call: [address] Aguirre - Vascular Surgery about the patient. He would like the patient to be hospitalized for IV antibiotics. He does not feel ultrasound of arm was needed to evaluate the fistula. Additional Consults: Time Called: 1304 Consulted Physician: Dr. Keri Lujan Returned Call: 1305 Additional Comments: I spoke with Dr. Saavedra of [facility]. We discussed the patient and his results. The patient will be further evaluated by Dr. Keri Lujan. Impression Primary Impression: AV fistula infection Additional Impression: End stage renal disease Scribe Attestation The scribe's documentation has been prepared under my direct and personally reviewed by me in its entirety. I confirm that the note above accurately reflects all work, treatment, procedures, and medical decision making performed by me. Departure Information Dispostion Being Evaluated By Hospitalist Fanny Gibson M.D. (PCP) Problem Qualifiers Primary Impression: AV fistula infection Encounter type: initial encounter Qualified Codes: T82.7XXA - Infection and inflammatory reaction due to other cardiac and vascular devices, implants and grafts, initial encounter
[2016-11-16] MEDS ORDERED: CLONIDINE HCL 0.3 MG/24 HR TRANSDERM SYS TD SCH (19:00)
[2016-11-16 19:23] VITALS: BP 142/93; PULSE 78; TEMP 36.7; O2SAT 91
[2016-11-16 20:44] VITALS: BP 128/83; PULSE 78; TEMP 36.7; O2SAT 86
[2016-11-16 20:56] VITALS: O2SAT 95
[2016-11-16] MEDS: SEVELAMER HYDROCH 800 MG TAB PO SCH (20:59)
[2016-11-16] MEDS: LABETALOL HCL 200 MG TAB PO SCH (20:59)
[2016-11-16] MEDS: TRAZODONE HCL 50 MG TAB PO SCH (21:00)
[2016-11-16] MEDS: PANTOprazole SOD 40 MG TAB PO SCH (21:00)
[2016-11-16] MEDS: HEPARIN SOD 5000 UNIT/0.5 ML CARP SQ SCH ×2 (21:00→21:21)
[2016-11-16] MEDS: GABAPENTIN 100 MG CAP PO SCH (21:00)
[2016-11-16] MEDS: AMITRIPTYLINE HCL 25 MG TAB PO SCH (21:00)
[2016-11-16] MEDS: CARVEDILOL 25 MG TAB PO SCH (21:00)
[2016-11-16] MEDS: CLONIDINE HCL 0.1 MG TAB PO SCH (21:02)
[2016-11-16 23:15] VITALS: BP 149/93; PULSE 82; TEMP 36.4; O2SAT 92
[2016-11-17] VITALS (7 sets, daily range): BP systolic 100–133; BP diastolic 60–87; PULSE 69–77; TEMP 36.6–37.1; O2SAT 93–96
[2016-11-17] MEDS: CHECK CLONIDINE PATCH PLACEMENT SCH ×4 (00:24→22:53)
[2016-11-17] MEDS: HYDROmorphone INJ 2 MG/ML SYR/VIAL IV PRN ×5 (00:28→20:43)
[2016-11-17] MEDS ORDERED: VANCOMYCIN INJ 0 MG in SODIUM CHLORIDE 0.9% 500ML 500 ML IV SCH (05:00)
[2016-11-17] MEDS ORDERED: PIPERACILL/TAZOBAC CONSULT ACTIVE PRN (06:00)
[2016-11-17] MEDS ORDERED: VANCOMYCIN CONSULT ACTIVE PRN (06:00)
[2016-11-17] MEDS: PIPERACILL/TAZOBAC IV 3.375 GM in DEXTROSE 5% 100ML 100 ML IV SCH ×2 (06:05→19:30)
[2016-11-17 06:38] LABS: HEMATOCRIT 33.7 % (42-52); MEAN CELL VOLUME 95.5 fL (80-100); MEAN CORPUSCULAR HGB CONC 31.5 g/dl (32-36); MEAN PLATELET VOLUME 10.5 fL (7.4-10.4); PLATELET COUNT 222 K/uL (130-400); RED BLOOD COUNT 3.53 M/uL (4.7-6.1); WHITE BLOOD COUNT 7.99 K/uL (4.8-10.8)
[2016-11-17 07:30] LABS: BUN/CREATININE RATIO 4.1 (10-20); CALCIUM 9.4 mg/dl (8.5-10.1)
[2016-11-17] MEDS: SEVELAMER HYDROCH 800 MG TAB PO SCH ×3 (08:35→18:27)
[2016-11-17] MEDS: METOCLOPRAMIDE HCL 10 MG TAB PO SCH ×3 (08:36→18:28)
[2016-11-17] MEDS: CLONIDINE HCL 0.1 MG TAB PO SCH ×3 (08:37→21:00)
[2016-11-17] MEDS: ASPIRIN 81 MG ECTAB PO SCH (08:38)
[2016-11-17] MEDS: CARVEDILOL 25 MG TAB PO SCH ×2 (08:38→21:00)
[2016-11-17] MEDS: GABAPENTIN 100 MG CAP PO SCH ×3 (08:39→21:03)
[2016-11-17] MEDS: LABETALOL HCL 200 MG TAB PO SCH ×2 (08:39→21:00)
[2016-11-17] MEDS: PANTOprazole SOD 40 MG TAB PO SCH ×2 (08:40→21:03)
[2016-11-17] MEDS: AMLODIPINE BESYLATE 5 MG TAB PO SCH (08:40)
[2016-11-17] MEDS: CHOLECALCIFEROL 1000 INTER.UNIT TAB PO SCH (08:41)
[2016-11-17] MEDS: SERTRALINE HCL 50 MG TAB PO SCH (08:41)
[2016-11-17] MEDS: HEPARIN SOD 5000 UNIT/0.5 ML CARP SQ SCH ×2 (09:00→21:00)
[2016-11-17] MEDS: OXYCODONE/ACETAMINOPHEN 5-325 TAB PO PRN ×2 (09:33→22:51)
--- NOTE | 2016-11-17 09:50 | Medical Consult ---
Consultation Note Date of Service Nov 17, 2016. Consultation Note No consult needed. Patient post basilic vein transposition of the left upper arm. He has developed an infection of the wound. The fistula is working well with a good thrill. The incision is tender with min drainage at this time. The incision is the harvest site of the basilic vein. Imp: Post op wound infection. Plan: Would continue antibiotics. The fistula itself it not in the area of this wound except at the elbow and the ant axillary line. This should respond nicely to antibiotic alone without any surgical intervention. Thank you very much for letting me participate in the care of this patient.
--- NOTE | 2016-11-17 14:26 | Progress Note ---
Subjective Date of Service: Nov 17, 2016. Subjective Pt evaluation today including: conversation w/ patient, physical exam, lab review, review of studies, conversation w/ test consultant, review of inpatient medication list Saw/examined the patient in room 357 Pain at the site of the infection, on the L upper arm There is some swelling and erythema around this area which is around the medial aspect of the bicep recent transposition of the AV fistula around the wound on 11/08 He denies any fevers/chills c/o some pain at the site, which is sharp in nature Problem List Medical Problems: (1) Abdominal pain Status: Acute (2) Abdominal pain Status: Acute (3) Abnormal EKG Status: Acute (4) Acute vomiting Status: Acute (5) Anemia Status: Acute (6) Back pain Status: Acute (7) Back pain Status: Acute (8) Elevated lipase Status: Acute (9) End stage renal disease Status: Acute (10) End stage renal failure on dialysis Status: Acute (11) Epigastric abdominal pain Status: Acute (12) ESRF (end stage renal failure) Status: Acute (13) Headache Status: Acute (14) Headache Status: Acute (15) Hypertension Status: Acute (16) Hypertensive emergency Status: Acute (17) Intractable abdominal pain Status: Acute (18) Lactic acidosis Status: Acute (19) Nausea & vomiting Status: Acute (20) Nausea & vomiting Status: Acute (21) Nausea & vomiting Status: Acute (22) Nausea and vomiting Status: Acute (23) Posterior reversible encephalopathy syndrome Status: Acute (24) Thrombocytopenia Status: Acute (25) Vomiting Status: Acute (26) Vomiting Status: Acute Review of Systems Constitutional: No chills, No fever, No weakness Respiratory: No shortness of breath Cardiac: No chest pain Abdomen: No diarrhea, No nausea, No pain, No vomiting Musculoskeletal: + joint pain, + muscle pain, + see HPI, + swelling, No calf pain Medications Current Inpatient Medications Medications (Trade) Dose Ordered Sig/Betsy Route Start Time Stop Time Status Last Admin Dose Admin Acetaminophen (Tylenol Tab) 650 mg Q4H PRN PO 11/16/16 15:15 12/16/16 15:14 Heparin Sodium (Porcine) (Heparin Sq 5000 Unit/0.5ml) 5,000 unit Q12 SQ 11/16/16 21:00 12/16/16 20:59 Alprazolam (Xanax Tab) 0.5 mg DAILY PRN PO 11/16/16 16:15 12/16/16 16:14 Amitriptyline HCl (Elavil Tab) 25 mg HS PO 11/16/16 21:00 12/16/16 20:59 11/16/16 21:00 25 MG Amlodipine Besylate (Norvasc Tab) 10 mg QAM PO 11/17/16 09:00 12/17/16 08:59 11/17/16 08:40 10 MG Aspirin (Ecotrin Tab) 81 mg QAM PO 11/17/16 09:00 12/17/16 08:59 11/17/16 08:38 81 MG Carvedilol (Coreg Tab) 25 mg BID PO 11/16/16 21:00 12/16/16 20:59 11/17/16 08:38 25 MG Cholecalciferol (Vitamin D Tab) 3,000 inter.unit DAILY PO 11/17/16 09:00 12/17/16 08:59 11/17/16 08:41 3,000 INTER.UNIT Clonidine HCl (Obdhxsux-Nis-5 0.3mg/24hr Patch) 1 patch Sa@0900 TD 11/16/16 19:00 12/16/16 18:59 11/16/16 21:01 1 PATCH Gabapentin (Neurontin Cap) 100 mg TID PO 11/16/16 21:00 12/16/16 20:59 11/17/16 13:37 100 MG Hydralazine HCl (Apresoline Tab) 50 mg TID PO 11/16/16 21:00 12/16/16 20:59 11/17/16 08:37 50 MG Labetalol HCl (Normodyne Tab) 200 mg BID PO 11/16/16 21:00 12/16/16 20:59 11/17/16 08:39 200 MG Metoclopramide HCl (Reglan Tab) 10 mg AC PO 11/17/16 08:00 12/17/16 07:59 11/17/16 08:36 10 MG Oxycodone/ Acetaminophen (Percocet 5-325mg Tab) 1 tab Q4H PRN PO 11/16/16 16:15 11/30/16 16:14 11/17/16 09:33 1 TAB Pantoprazole Sodium (Protonix Tab) 40 mg BID PO 11/16/16 21:00 12/16/16 20:59 11/17/16 08:40 40 MG Sertraline HCl (Zoloft Tab) 50 mg QAM PO 11/17/16 09:00 12/17/16 08:59 11/17/16 08:41 50 MG Sevelamer HCl (Renagel Tab) 3,200 mg TIDM PO 11/16/16 17:45 12/16/16 17:59 11/17/16 08:35 3,200 MG Trazodone HCl (Desyrel Tab) 50 mg HS PO 11/16/16 21:00 12/16/16 20:59 11/16/16 21:00 50 MG Clonidine HCl (Catapres Tab) 0.4 mg TID PO 11/16/16 21:00 12/16/16 20:59 11/17/16 08:37 0.4 MG Miscellaneous Information (Order Awaiting Action) 1 ea QS N/A 11/17/16 00:00 12/17/16 00:00 Miscellaneous (Remove Clonidine Patch) 1 ea Q7D@0859 N/A 11/23/16 08:59 12/23/16 08:58 Miscellaneous Information (Check Clonidine Patch Placement) 1 ea QS N/A 11/17/16 00:00 12/17/16 00:00 11/17/16 08:34 1 EA Hydromorphone HCl 2 mg 2 mg Q4H PRN IV 11/16/16 20:30 11/30/16 20:29 11/17/16 11:09 2 MG Piperacillin Sod/ Tazobactam Sod/ Dextrose (Zosyn Iv/D5 100ml) 115 ml @ 28.75 mls/ hr Q12H IV 11/17/16 06:00 11/27/16 05:59 11/17/16 06:05 28.75 MLS/HR Vancomycin HCl (Consult) 1 ea UD PRN N/A 11/17/16 06:00 12/17/16 05:59 Piperacillin Sod/ Tazobactam Sod (Consult) 1 ea UD PRN N/A 11/17/16 06:00 12/17/16 05:59 Objective Vital Signs Date Time Temp Pulse Resp B/P Pulse Ox O2 Delivery O2 Flow Rate FiO2 4/30/17 07:57 36.6 77 16 133/87 94 Room Air 11/17/16 06:15 36.7 77 133/87 93 Room Air 11/17/16 00:20 Room Air 11/16/16 23:15 36.4 82 16 149/93 92 Room Air 11/16/16 20:56 14 95 Room Air 11/16/16 20:44 36.7 78 16 128/83 86 Room Air 11/16/16 19:23 36.7 78 16 142/93 91 Room Air 11/16/16 16:30 Room Air 11/16/16 16:12 80 14 130/92 92 Room Air 11/16/16 14:54 80 16 130/92 95 Room Air 11/16/16 14:01 91 Room Air 11/16/16 14:00 79 133/98 91 11/16/16 13:12 86 11/16/16 12:26 93 18 140/99 94 Room Air 11/16/16 12:26 98 Room Air 11/16/16 12:08 37.0 11/16/16 11:50 36.7 111 20 147/95 99 Room Air Physical Exam General Appearance: no apparent distress Respiratory/Chest: lungs clear, normal breath sounds, no respiratory distress, no accessory muscle use Cardiovascular: regular rate, rhythm, no edema, no murmur Extremities: + pertinent finding (LUE, medial bicep area; stapled, with drainage, there is erythema and swelling; warm to touch; tender to touch) Neurologic/Psychiatric: no motor/sensory deficits, alert, normal mood/affect Laboratory Results Last 24 Hours Test 11/16/16 12:05 11/16/16 12:15 11/17/16 06:00 White Blood Count 7.18 K/uL 7.99 K/uL Red Blood Count 3.57 M/uL 3.53 M/uL Hemoglobin 11.0 g/dL 10.6 g/dL Hematocrit 33.9 % 33.7 % Mean Corpuscular Volume 95.0 fL 95.5 fL Mean Corpuscular Hemoglobin 30.8 pg 30.0 pg Mean Corpuscular Hemoglobin Concent 32.4 g/dl 31.5 g/dl Platelet Count 245 K/uL 222 K/uL Mean Platelet Volume 10.4 fL 10.5 fL Neutrophils (%) (Auto) 68.0 % Lymphocytes (%) (Auto) 16.3 % Monocytes (%) (Auto) 8.5 % Eosinophils (%) (Auto) 6.1 % Basophils (%) (Auto) 1.0 % Neutrophils # (Auto) 4.88 K/uL Lymphocytes # (Auto) 1.17 K/uL Monocytes # (Auto) 0.61 K/uL Eosinophils # (Auto) 0.44 K/uL Basophils # (Auto) 0.07 K/uL RDW Standard Deviation 49.9 fL 50.6 fL RDW Coefficient of Variation 14.4 % 14.5 % Immature Granulocyte % (Auto) 0.1 % Immature Granulocyte # (Auto) 0.01 K/uL Prothrombin Time 11.8 SECONDS Prothromb Time International Ratio 1.1 Activated Partial Thromboplast Time 35.9 SECONDS Partial Thromboplastin Ratio 1.4 Sodium Level 138 mmol/L 137 mmol/L Potassium Level 4.6 mmol/L 5.0 mmol/L Chloride Level 99 mmol/L 98 mmol/L Carbon Dioxide Level 30 mmol/L 27 mmol/L Anion Gap 9.0 mmol/L 12.0 mmol/L Blood Urea Nitrogen 34 mg/dl 46 mg/dl Creatinine 9.00 mg/dl 11.00 mg/dl Est Creatinine Clear Calc Drug Dose 10.0 ml/min 8.2 ml/min Estimated GFR () 7.7 6.1 Estimated GFR (Non- 6.7 5.2 BUN/Creatinine Ratio 3.8 4.1 Random Glucose 107 mg/dl 94 mg/dl Calcium Level 9.5 mg/dl 9.4 mg/dl Total Bilirubin 0.3 mg/dl Aspartate Amino Transf (AST/SGOT) 16 U/L Alanine Aminotransferase (ALT/SGPT) 14 U/L Alkaline Phosphatase 99 U/L Total Protein 9.2 gm/dl Albumin 3.5 gm/dl Globulin 5.7 gm/dl Albumin/Globulin Ratio 0.6 Bedside Lactic Acid Venous 0.75 mmol/L Random Vancomycin Level 18.9 mcg/ml Assessment and Plan This is a 36 year old male with PMH of glomerulonephritis with failed kidney transplant, now ESRD on HD, CAD, HTN, depression/anxiety presents with infected left upper extremity AV fistula Wound Infection of Left Upper Extremity recent AV fistula transposition on November 08 there is erythema, swelling, tenderness and warmth to touch no white count, no lactic acidosis, hemodynamically stable wound culture + for Staph Aureus, further speciation and sensitivities pending for now, will continue IV Vanco and IV Zosyn appreciate vascular surgery input ESRD on HD receives dialysis on nephrology consultation pending HTN difficult to control blood pressure as outpatient it is currently well controlled and we will keep his outpatient regimen for now CAD no chest pain continue b-parul, aspirin Depression/Anxiety continue home medications DVT ppx subq heparin FULL CODE
--- NOTE | 2016-11-17 14:55 | Pharmacy Progress Note ---
Pharmacy Antibiotic Consult Date of Service: Nov 17, 2016. Pharmacy Dosing Scope Pharmacy is consulted to initiate vancomycin and zosyn IV dosing therapy, order appropriate labs and adjust drug dose/frequency. Subjective The patient is a 36 year old male admitted on Nov 16, 2016 at 15:04. Objective Height (Feet): 5 Height (Inches): 6.00 Weight (Kilograms): 64.800 Lab Results (24hrs): Item Value Date Time Random Vancomycin Level 18.9 mcg/ml 11/17/16 0600 Laboratory Tests Test 11/17/16 06:00 BUN/Creatinine Ratio 4.1 Blood Urea Nitrogen 46 mg/dl Creatinine 11.00 mg/dl White Blood Count 7.99 K/uL Micro Results: Item Value Date Time Gram Stain - Final Resulted 11/16/16 1520 Incision Site Arm , Left Upper Blood Culture Received 11/16/16 1320 Blood Pending Blood Culture Received 11/16/16 1205 Blood Pending Assessment & Plan Patient started on vancomycin and zosyn for skin/soft tissue infection. Wound cultures prelim positive for staph aureus thus far. BC x 2 are pending. Vancomycin: * Patient received vancomycin 1000 mg x 1 yesterday; random level this am was ~ 19 mcg/ml (goal 15-20 mcg/ml) * Patient receives HD MWF as an outpatient ; nephrology consulted * Unsure of dialysis schedule at this time ; if patient to receive dialysis tomorrow estimated level after dialysis <15 mcg/ml therefore will redose with vancomycin 500 mg x 1 so that he will remain therapeutic * Will obtain a random level in the am to assist with further dosing Zosyn: * 3.375 gm iv q 12 hrs (appropriate for HD patients) no change Pharmacy will continue to follow and will adjust dose/frequency as necessary. Thank you
[2016-11-17] MEDS ORDERED: VANCOMYCIN INJ 500 MG in SODIUM CHLORIDE 0.9% 250ML 250 ML IV ONE (16:00)
--- NOTE | 2016-11-17 16:17 | Nephrology Consultation ---
Nephrology Consultation Date of Consultation: Nov 17, 2016. Attending Physician: Dr Márquez Requesting Physician: Dr Saavedra Reason for Consultation: ESRD w/ concern for vascular access infection History of Present Illness 36 year old male w/ ESRD d/t GN and 2 failed renal txplts now on MWF HD at [facility] via [facility] admitted w/ concern for infection at recent AVF surgery site. Other PMH includes HTN, chronic abd pain/gastroparesis, CAD s/p stents 2006, 2010. He had a basilic vein transposition on 10/29 w/ wound on medial aspect of arm and some drainage/ tenderness; started on amoxacillin/ clavulonic acid but sx worsened/persisted. Vascular saw pt and no need for surgical intervention at this time for post op wound infection. AVF looks/ feels fine. Pt adherent w/ HD txs and last one was 11/15. Currently on vanco/ zosyn. Past Medical/Surgical History as per HPI Family History Diabetes mellitus FATHER Hypertension FATHER MOTHER Kidney disease FATHER MOTHER Social History Smoking Status: Current Every Day Smoker Alcohol Use: none Drug Use: none Housing Status: lives alone Allergies Coded Allergies: Minoxidil (Verified Adverse Reaction, Intermediate, priapism, 11/16/16) Prednisone (Verified Adverse Reaction, Intermediate, SEVERE GI UPSET, CONSTIPATION, 11/16/16) PER RECORDS Terazosin (Verified Adverse Reaction, Intermediate, priapism, 11/16/16) Medications Current Inpatient Medications Medications (Trade) Dose Ordered Sig/Betsy Route Start Time Stop Time Status Last Admin Dose Admin Acetaminophen (Tylenol Tab) 650 mg Q4H PRN PO 11/16/16 15:15 12/16/16 15:14 Heparin Sodium (Porcine) (Heparin Sq 5000 Unit/0.5ml) 5,000 unit Q12 SQ 11/16/16 21:00 12/16/16 20:59 Alprazolam (Xanax Tab) 0.5 mg DAILY PRN PO 11/16/16 16:15 12/16/16 16:14 Amitriptyline HCl (Elavil Tab) 25 mg HS PO 11/16/16 21:00 12/16/16 20:59 11/16/16 21:00 25 MG Amlodipine Besylate (Norvasc Tab) 10 mg QAM PO 11/17/16 09:00 12/17/16 08:59 11/17/16 08:40 10 MG Aspirin (Ecotrin Tab) 81 mg QAM PO 11/17/16 09:00 12/17/16 08:59 11/17/16 08:38 81 MG Carvedilol (Coreg Tab) 25 mg BID PO 11/16/16 21:00 12/16/16 20:59 11/17/16 08:38 25 MG Cholecalciferol (Vitamin D Tab) 3,000 inter.unit DAILY PO 11/17/16 09:00 12/17/16 08:59 11/17/16 08:41 3,000 INTER.UNIT Clonidine HCl (Wofbmoln-Dce-4 0.3mg/24hr Patch) 1 patch Sa@0900 TD 11/16/16 19:00 12/16/16 18:59 11/16/16 21:01 1 PATCH Gabapentin (Neurontin Cap) 100 mg TID PO 11/16/16 21:00 12/16/16 20:59 11/17/16 13:37 100 MG Hydralazine HCl (Apresoline Tab) 50 mg TID PO 11/16/16 21:00 12/16/16 20:59 11/17/16 08:37 50 MG Labetalol HCl (Normodyne Tab) 200 mg BID PO 11/16/16 21:00 12/16/16 20:59 11/17/16 08:39 200 MG Metoclopramide HCl (Reglan Tab) 10 mg AC PO 11/17/16 08:00 12/17/16 07:59 11/17/16 08:36 10 MG Oxycodone/ Acetaminophen (Percocet 5-325mg Tab) 1 tab Q4H PRN PO 11/16/16 16:15 11/30/16 16:14 11/17/16 09:33 1 TAB Pantoprazole Sodium (Protonix Tab) 40 mg BID PO 11/16/16 21:00 12/16/16 20:59 11/17/16 08:40 40 MG Sertraline HCl (Zoloft Tab) 50 mg QAM PO 11/17/16 09:00 12/17/16 08:59 11/17/16 08:41 50 MG Sevelamer HCl (Renagel Tab) 3,200 mg TIDM PO 11/16/16 17:45 12/16/16 17:59 11/17/16 08:35 3,200 MG Trazodone HCl (Desyrel Tab) 50 mg HS PO 11/16/16 21:00 12/16/16 20:59 11/16/16 21:00 50 MG Clonidine HCl (Catapres Tab) 0.4 mg TID PO 11/16/16 21:00 12/16/16 20:59 11/17/16 08:37 0.4 MG Miscellaneous Information (Order Awaiting Action) 1 ea QS N/A 11/17/16 00:00 12/17/16 00:00 Miscellaneous (Remove Clonidine Patch) 1 ea Q7D@0859 N/A 11/23/16 08:59 12/23/16 08:58 Miscellaneous Information (Check Clonidine Patch Placement) 1 ea QS N/A 11/17/16 00:00 12/17/16 00:00 11/17/16 08:34 1 EA Hydromorphone HCl 2 mg 2 mg Q4H PRN IV 11/16/16 20:30 11/30/16 20:29 11/17/16 15:29 2 MG Piperacillin Sod/ Tazobactam Sod/ Dextrose (Zosyn Iv/D5 100ml) 115 ml @ 28.75 mls/ hr Q12H IV 11/17/16 06:00 11/27/16 05:59 11/17/16 06:05 28.75 MLS/HR Vancomycin HCl (Consult) 1 ea UD PRN N/A 11/17/16 06:00 12/17/16 05:59 Piperacillin Sod/ Tazobactam Sod 1 ea 1 ea UD PRN N/A 11/17/16 06:00 12/17/16 05:59 Vancomycin HCl/ Sodium Chloride (Vancomycin Inj/ Nss 250ml) 260 ml @ 125 mls/hr TODAY@1600 ONCE IV 11/17/16 16:00 11/17/16 18:04 Home Meds and Scripts Medications Dose Route/Sig Max Daily Dose Days Date Category Dose Instructions Carvedilol 25 Mg Tab 25 Mg PO BID 11/16/16 Reported Amitriptyline HCl 25 Mg Tab 25 Mg PO HS 11/16/16 Reported Hydralazine HCl 50 Mg Tab 50 Mg PO TID 11/16/16 Reported Augmentin 875-125 mg (Amoxicillin & Pot Clavulanate) 1 Tab Tab 1 Tab PO BID 7 11/16/16 Reported STARTED 11/14/16 Percocet 5MG/325MG (Oxycodone/Acetaminophen) Tab 2 Tablets PO Q4H PRN 10/29/16 Rx Gabapentin 100 Mg Cap 100 Mg PO TID 09/06/16 Reported Trazodone (Trazodone HCl) 50 Mg Tab 50 Mg PO HS 07/12/16 Reported Labetalol HCl 200 Mg Tab 200 Mg PO BID 06/12/16 Reported Aspirin Ec (Aspirin) 81 Mg Tab 81 Mg PO QAM 06/04/16 Reported Tums (Calcium Carbonate) 500 Mg Chew 500 Mg PO DAILY PRN 03/08/16 Reported Vitamin D3 (Cholecalciferol) 1,000 Unit Tab 3,000 Units PO DAILY 30 03/08/16 Reported Zoloft (Sertraline HCl) 50 Mg Tab 50 Mg PO QAM 03/05/16 Reported Sensipar (Cinacalcet) 30 Mg Tab 30 Mg PO QPM 03/05/16 Reported WITH SUPPER Protonix (Pantoprazole Sodium) 40 Mg Tab 40 Mg PO BID 01/27/16 Reported Clonidine Hcl 0.3 Mg/24 Hr Dis 1 Patch EXT WK 01/24/16 Reported PATCH IS CHANGED ON SUNDAYS Reglan (Metoclopramide HCl) 10 Mg Tab 10 Mg PO AC 10/06/15 Reported Xanax (Alprazolam) 0.5 Mg Tab 0.5 Mg PO UD 10/06/15 Reported BEFORE DIALYSIS Renagel (Sevelamer HCl) 800 Mg Tab 3,200 Mg PO TIDM 10/06/15 Reported Catapres (Clonidine Hcl) 0.2 Mg Tab 0.4 Mg PO TID 10/06/15 Reported Norvasc (Amlodipine Besylate) 10 Mg Tab 10 Mg PO QAM 01/17/15 Reported Review of Systems Constitutional: + fatigue Eyes: No worsening of vision ENT: No hearing loss Respiratory: No cough, No shortness of breath Cardiac: No chest pain, No edema, No palpitations Abdomen: + problem reported (dry heaves/ abd pain resumed again after recent surgery; none just prior) Musculoskeletal: No joint pain, No muscle pain Male : + problem reported (no change in chronic voiding habits) Neuro: No memory loss, No weakness Psych: No anxiety, No depression symptoms Heme: No abnormal bleeding/bruising Endo: No fatigue Skin: + new/changing skin lesions (incision w/ green drainage/ pain) Physical Exam Date Time Temp Pulse Resp B/P Pulse Ox O2 Delivery O2 Flow Rate FiO2 11/17/16 13:35 110/71 11/17/16 08:00 94 Room Air 11/17/16 07:57 36.6 77 16 133/87 94 Room Air 11/17/16 06:15 36.7 77 133/87 93 Room Air 11/17/16 00:20 Room Air 11/16/16 23:15 36.4 82 16 149/93 92 Room Air 11/16/16 20:56 14 95 Room Air 11/16/16 20:44 36.7 78 16 128/83 86 Room Air 11/16/16 19:23 36.7 78 16 142/93 91 Room Air 11/16/16 16:30 Room Air 11/16/16 16:12 80 14 130/92 92 Room Air 24-Hour Column 11/17/16 07:59 Intake Total 700 ml Balance 700 ml General Appearance: WD/WN, no apparent distress, + pertinent finding (on ra, maneuvers easily for exam; appears chronically ill) Eyes: EOMI ENT: hearing grossly normal Neck: supple Respiratory/Chest: lungs clear, normal breath sounds, no respiratory distress Cardiovascular: regular rate, rhythm, no edema Abdomen: normal bowel sounds, non tender, soft, + guarding Extremities: no pedal edema, + pertinent finding (AVF L prox arm + t/b; wound just rewrapped/not examined) Neurologic/Psych: alert, normal mood/affect, oriented x 3 Skin: no jaundice, warm/dry, no rash Diagnostics Last 24 Hours Test 11/17/16 06:00 11/17/16 08:16 White Blood Count 7.99 K/uL Red Blood Count 3.53 M/uL Hemoglobin 10.6 g/dL Hematocrit 33.7 % Mean Corpuscular Volume 95.5 fL Mean Corpuscular Hemoglobin 30.0 pg Mean Corpuscular Hemoglobin Concent 31.5 g/dl RDW Standard Deviation 50.6 fL RDW Coefficient of Variation 14.5 % Platelet Count 222 K/uL Mean Platelet Volume 10.5 fL Sodium Level 137 mmol/L Potassium Level 5.0 mmol/L Chloride Level 98 mmol/L Carbon Dioxide Level 27 mmol/L Anion Gap 12.0 mmol/L Blood Urea Nitrogen 46 mg/dl Creatinine 11.00 mg/dl Est Creatinine Clear Calc Drug Dose 8.2 ml/min Estimated GFR () 6.1 Estimated GFR (Non- 5.2 BUN/Creatinine Ratio 4.1 Random Glucose 94 mg/dl Calcium Level 9.4 mg/dl Random Vancomycin Level 18.9 mcg/ml Bedside Glucose 115 mg/dl Diagnostic Radiology: cxr no acute cardiopulm process Assessment & Plan 36 y/o M w/ ESRD on MWF HD via [facility] admitted w/ postop wound infection after basilic vein transposition procedure; avf running well; on IV abtx. ESRD -for routine hd tomorrow via [facility] -chemistries/ vol status/ bp all acceptable and no need for urgent tx -cont binders, sensipar vasc access infection -abtx per primary service > consider Inf dzs consult for recs for abtx to be given after hd as outpt if possible -vascular following appreciate c/s; will follow with you.
[2016-11-17] MEDS: AMITRIPTYLINE HCL 25 MG TAB PO SCH (21:03)
[2016-11-17] MEDS: TRAZODONE HCL 50 MG TAB PO SCH (21:03)
[2016-11-18] VITALS (23 sets, daily range): BP systolic 101–148; BP diastolic 59–107; PULSE 60–92; TEMP 36.5–37.1; O2SAT 91–95
[2016-11-18] MEDS: HYDROmorphone INJ 2 MG/ML SYR/VIAL IV PRN ×4 (00:54→13:42)
[2016-11-18] MEDS: PIPERACILL/TAZOBAC IV 3.375 GM in DEXTROSE 5% 100ML 100 ML IV SCH (05:35)
[2016-11-18 06:00] LABS: HEMATOCRIT 28.3 % (42-52); MEAN CELL VOLUME 93.7 fL (80-100); MEAN CORPUSCULAR HEMOGLOBIN 29.1 pg (25-34); MEAN CORPUSCULAR HGB CONC 31.1 g/dl (32-36); MEAN PLATELET VOLUME 9.9 fL (7.4-10.4); PLATELET COUNT 191 K/uL (130-400); RED BLOOD COUNT 3.02 M/uL (4.7-6.1); WHITE BLOOD COUNT 6.56 K/uL (4.8-10.8)
[2016-11-18 07:06] LABS: BUN/CREATININE RATIO 4.3 (10-20); POTASSIUM 4.9 mmol/L (3.5-5.1)
[2016-11-18] MEDS: CHECK CLONIDINE PATCH PLACEMENT SCH ×2 (07:52→16:00)
[2016-11-18] MEDS: OXYCODONE/ACETAMINOPHEN 5-325 TAB PO PRN ×2 (07:52→16:57)
[2016-11-18] MEDS ORDERED: HEPARIN SOD (PORCINE) 1000 UNIT/ML 10 ML VIAL IV SCH (08:00)
[2016-11-18] MEDS: ALPRAZOLAM 0.5 MG TAB PO PRN (08:56)
[2016-11-18] MEDS: SEVELAMER HYDROCH 800 MG TAB PO SCH ×3 (09:41→17:25)
[2016-11-18] MEDS: GABAPENTIN 100 MG CAP PO SCH ×3 (09:41→21:11)
[2016-11-18] MEDS: METOCLOPRAMIDE HCL 10 MG TAB PO SCH ×3 (09:41→17:25)
[2016-11-18] MEDS: CLONIDINE HCL 0.1 MG TAB PO SCH ×3 (09:41→21:09)
[2016-11-18] MEDS: HEPARIN SOD 5000 UNIT/0.5 ML CARP SQ SCH ×2 (09:42→21:00)
--- NOTE | 2016-11-18 10:22 | Dialysis Progress Note ---
Nephrology Dialysis Note Date of Service: November 18, 2016. Subjective 36 yo male with esrd who presented with superficial skin infection involving fistula superficialization. left arm swollen and some ilda are coming loose from the swelling. pt seen on dialysis and tolerating dialysis well. pt feels good. is experiencing some abdominal pain and n/v again which he gets periodically. Objective Date Time Temp Pulse Resp B/P Pulse Ox O2 Delivery O2 Flow Rate FiO2 11/18/16 07:35 Room Air 11/18/16 07:13 36.9 63 15 132/81 91 Room Air 11/17/16 23:24 Room Air 11/17/16 23:20 37.1 69 14 107/67 95 Room Air 11/17/16 20:55 37.0 71 14 100/68 96 Room Air 11/17/16 15:50 36.9 73 16 103/60 94 Nasal Cannula 11/17/16 15:15 Room Air 11/17/16 13:35 110/71 Physical Exam: General-aaox3, +facial fullness Eyes-no scleral icterus ENT-mmm Neck-supple Lungs-cta Heart-rrr Abdomen-bs+ s/nt/nd Extremities-left arm wrapped and swollen Neuro-nonfocal Current Inpatient Medications Medications (Trade) Dose Ordered Sig/Betsy Route Start Time Stop Time Status Last Admin Dose Admin Acetaminophen (Tylenol Tab) 650 mg Q4H PRN PO 11/16/16 15:15 12/16/16 15:14 Heparin Sodium (Porcine) (Heparin Sq 5000 Unit/0.5ml) 5,000 unit Q12 SQ 11/16/16 21:00 12/16/16 20:59 Alprazolam (Xanax Tab) 0.5 mg DAILY PRN PO 11/16/16 16:15 12/16/16 16:14 11/18/16 08:56 0.5 MG Amitriptyline HCl (Elavil Tab) 25 mg HS PO 11/16/16 21:00 12/16/16 20:59 11/17/16 21:03 25 MG Amlodipine Besylate (Norvasc Tab) 10 mg QAM PO 11/17/16 09:00 12/17/16 08:59 11/17/16 08:40 10 MG Aspirin (Ecotrin Tab) 81 mg QAM PO 11/17/16 09:00 12/17/16 08:59 11/17/16 08:38 81 MG Carvedilol (Coreg Tab) 25 mg BID PO 11/16/16 21:00 12/16/16 20:59 11/17/16 08:38 25 MG Cholecalciferol (Vitamin D Tab) 3,000 inter.unit DAILY PO 11/17/16 09:00 12/17/16 08:59 11/17/16 08:41 3,000 INTER.UNIT Clonidine HCl (Rkuouggm-Wnj-7 0.3mg/24hr Patch) 1 patch Sa@0900 TD 11/16/16 19:00 12/16/16 18:59 11/16/16 21:01 1 PATCH Gabapentin (Neurontin Cap) 100 mg TID PO 11/16/16 21:00 12/16/16 20:59 11/17/16 21:03 100 MG Hydralazine HCl (Apresoline Tab) 50 mg TID PO 11/16/16 21:00 12/16/16 20:59 11/17/16 08:37 50 MG Labetalol HCl (Normodyne Tab) 200 mg BID PO 11/16/16 21:00 12/16/16 20:59 11/17/16 08:39 200 MG Metoclopramide HCl (Reglan Tab) 10 mg AC PO 11/17/16 08:00 12/17/16 07:59 11/17/16 18:28 10 MG Oxycodone/ Acetaminophen (Percocet 5-325mg Tab) 1 tab Q4H PRN PO 11/16/16 16:15 11/30/16 16:14 11/18/16 07:52 1 TAB Pantoprazole Sodium (Protonix Tab) 40 mg BID PO 11/16/16 21:00 12/16/16 20:59 11/17/16 21:03 40 MG Sertraline HCl (Zoloft Tab) 50 mg QAM PO 11/17/16 09:00 12/17/16 08:59 11/17/16 08:41 50 MG Sevelamer HCl (Renagel Tab) 3,200 mg TIDM PO 11/16/16 17:45 12/16/16 17:59 11/17/16 18:27 3,200 MG Trazodone HCl (Desyrel Tab) 50 mg HS PO 11/16/16 21:00 12/16/16 20:59 11/17/16 21:03 50 MG Clonidine HCl (Catapres Tab) 0.4 mg TID PO 11/16/16 21:00 12/16/16 20:59 11/17/16 08:37 0.4 MG Miscellaneous Information (Order Awaiting Action) 1 ea QS N/A 11/17/16 00:00 12/17/16 00:00 Miscellaneous (Remove Clonidine Patch) 1 ea Q7D@0859 N/A 11/23/16 08:59 12/23/16 08:58 Miscellaneous Information (Check Clonidine Patch Placement) 1 ea QS N/A 11/17/16 00:00 12/17/16 00:00 11/18/16 07:52 1 EA Hydromorphone HCl (Dilaudid Inj) 2 mg Q4H PRN IV 11/16/16 20:30 11/30/16 20:29 11/18/16 08:56 2 MG Heparin Sodium (Porcine) (Heparin Iv Bolus) 1,000 unit TODAY@0800 IV 11/18/16 08:00 11/18/16 18:00 Heparin Sodium (Porcine) 400 unit 400 unit Q1H IV 11/18/16 08:00 11/18/16 18:00 Cefazolin Sodium/ Dextrose (Ancef Iv/D5 50ml) 52.5 ml @ 105 mls/hr DAILY@1400 IV 11/18/16 14:00 11/28/16 13:59 Last 24 Hours Test 11/18/16 05:24 White Blood Count 6.56 K/uL Red Blood Count 3.02 M/uL Hemoglobin 8.8 g/dL Hematocrit 28.3 % Mean Corpuscular Volume 93.7 fL Mean Corpuscular Hemoglobin 29.1 pg Mean Corpuscular Hemoglobin Concent 31.1 g/dl RDW Standard Deviation 48.9 fL RDW Coefficient of Variation 14.2 % Platelet Count 191 K/uL Mean Platelet Volume 9.9 fL Sodium Level 134 mmol/L Potassium Level 4.9 mmol/L Chloride Level 98 mmol/L Carbon Dioxide Level 24 mmol/L Anion Gap 12.0 mmol/L Blood Urea Nitrogen 56 mg/dl Creatinine 13.00 mg/dl Est Creatinine Clear Calc Drug Dose 6.9 ml/min Estimated GFR () 5.0 Estimated GFR (Non- 4.3 BUN/Creatinine Ratio 4.3 Random Glucose 89 mg/dl Calcium Level 9.0 mg/dl Random Vancomycin Level 24.9 mcg/ml Assessment & Plan ESRD-seen on dialysis. bp is good. access working well. Anemia of renal failure-hg levels are low and giving procrit prn to help keep hg between 10 and 11 TL-on phosphate binders and trying to control phos as well as possible.
[2016-11-18] MEDS: HEPARIN SOD (PORCINE) 1000 UNIT/ML 10 ML VIAL IV SCH ×5 (13:19→13:35)
[2016-11-18] MEDS: LABETALOL HCL 200 MG TAB PO SCH ×2 (13:38→21:12)
[2016-11-18] MEDS: CARVEDILOL 25 MG TAB PO SCH ×2 (13:39→21:08)
[2016-11-18] MEDS: SERTRALINE HCL 50 MG TAB PO SCH (13:39)
[2016-11-18] MEDS: AMLODIPINE BESYLATE 5 MG TAB PO SCH (13:39)
[2016-11-18] MEDS: CHOLECALCIFEROL 1000 INTER.UNIT TAB PO SCH (13:40)
[2016-11-18] MEDS: ASPIRIN 81 MG ECTAB PO SCH (13:41)
[2016-11-18] MEDS: PANTOprazole SOD 40 MG TAB PO SCH ×2 (13:41→21:10)
[2016-11-18] MEDS: CEFAZOLIN IV 500 MG in DEXTROSE 5% 50ML 50 ML IV SCH (13:41)
--- NOTE | 2016-11-18 15:41 | Progress Note ---
Subjective Date of Service: November 18, 2016. Subjective Pt evaluation today including: conversation w/ patient, physical exam, lab review, review of studies, review of inpatient medication list Saw/examined the patient in room 357 +pain at site of wound No other issues, no fevers/chills Problem List Medical Problems: (1) Abdominal pain Status: Acute (2) Abdominal pain Status: Acute (3) Abnormal EKG Status: Acute (4) Acute vomiting Status: Acute (5) Anemia Status: Acute (6) Back pain Status: Acute (7) Back pain Status: Acute (8) Elevated lipase Status: Acute (9) End stage renal disease Status: Acute (10) End stage renal failure on dialysis Status: Acute (11) Epigastric abdominal pain Status: Acute (12) ESRF (end stage renal failure) Status: Acute (13) Headache Status: Acute (14) Headache Status: Acute (15) Hypertension Status: Acute (16) Hypertensive emergency Status: Acute (17) Intractable abdominal pain Status: Acute (18) Lactic acidosis Status: Acute (19) Nausea & vomiting Status: Acute (20) Nausea & vomiting Status: Acute (21) Nausea & vomiting Status: Acute (22) Nausea and vomiting Status: Acute (23) Posterior reversible encephalopathy syndrome Status: Acute (24) Thrombocytopenia Status: Acute (25) Vomiting Status: Acute (26) Vomiting Status: Acute Review of Systems Constitutional: No chills, No fever Respiratory: No cough, No shortness of breath, No sputum Cardiac: No chest pain Abdomen: No diarrhea, No nausea, No pain, No vomiting Musculoskeletal: + joint pain (L arm) Medications Current Inpatient Medications Medications (Trade) Dose Ordered Sig/[facility] Route Start Time Stop Time Status Last Admin Dose Admin Acetaminophen (Tylenol Tab) 650 mg Q4H PRN PO 11/16/16 15:15 12/16/16 15:14 Heparin Sodium (Porcine) (Heparin Sq 5000 Unit/0.5ml) 5,000 unit Q12 SQ 11/16/16 21:00 12/16/16 20:59 Alprazolam (Xanax Tab) 0.5 mg DAILY PRN PO 11/16/16 16:15 12/16/16 16:14 11/18/16 08:56 0.5 MG Amitriptyline HCl (Elavil Tab) 25 mg HS PO 11/16/16 21:00 12/16/16 20:59 11/17/16 21:03 25 MG Amlodipine Besylate (Norvasc Tab) 10 mg QAM PO 11/17/16 09:00 12/17/16 08:59 11/18/16 13:39 10 MG Aspirin (Ecotrin Tab) 81 mg QAM PO 11/17/16 09:00 12/17/16 08:59 11/18/16 13:41 81 MG Carvedilol (Coreg Tab) 25 mg BID PO 11/16/16 21:00 12/16/16 20:59 11/17/16 08:38 25 MG Cholecalciferol (Vitamin D Tab) 3,000 inter.unit DAILY PO 11/17/16 09:00 12/17/16 08:59 11/18/16 13:40 3,000 INTER.UNIT Clonidine HCl (Migyywvc-Qqw-7 0.3mg/24hr Patch) 1 patch Sa@0900 TD 11/16/16 19:00 12/16/16 18:59 11/16/16 21:01 1 PATCH Gabapentin (Neurontin Cap) 100 mg TID PO 11/16/16 21:00 12/16/16 20:59 11/18/16 13:39 100 MG Hydralazine HCl (Apresoline Tab) 50 mg TID PO 11/16/16 21:00 12/16/16 20:59 11/18/16 13:40 50 MG Labetalol HCl (Normodyne Tab) 200 mg BID PO 11/16/16 21:00 12/16/16 20:59 11/18/16 13:38 200 MG Metoclopramide HCl (Reglan Tab) 10 mg AC PO 11/17/16 08:00 12/17/16 07:59 11/18/16 13:39 10 MG Oxycodone/ Acetaminophen (Percocet 5-325mg Tab) 1 tab Q4H PRN PO 11/16/16 16:15 11/30/16 16:14 11/18/16 07:52 1 TAB Pantoprazole Sodium (Protonix Tab) 40 mg BID PO 11/16/16 21:00 12/16/16 20:59 11/18/16 13:41 40 MG Sertraline HCl (Zoloft Tab) 50 mg QAM PO 11/17/16 09:00 12/17/16 08:59 11/18/16 13:39 50 MG Sevelamer HCl (Renagel Tab) 3,200 mg TIDM PO 11/16/16 17:45 12/16/16 17:59 11/18/16 13:37 3,200 MG Trazodone HCl (Desyrel Tab) 50 mg HS PO 11/16/16 21:00 12/16/16 20:59 11/17/16 21:03 50 MG Clonidine HCl (Catapres Tab) 0.4 mg TID PO 11/16/16 21:00 12/16/16 20:59 11/18/16 13:38 0.4 MG Miscellaneous Information (Order Awaiting Action) 1 ea QS N/A 11/17/16 00:00 12/17/16 00:00 Miscellaneous (Remove Clonidine Patch) 1 ea Q7D@0859 N/A 11/23/16 08:59 12/23/16 08:58 Miscellaneous Information (Check Clonidine Patch Placement) 1 ea QS N/A 11/17/16 00:00 12/17/16 00:00 11/18/16 07:52 1 EA Heparin Sodium (Porcine) (Heparin Iv Bolus) 1,000 unit TODAY@0800 IV 11/18/16 08:00 11/18/16 18:00 Heparin Sodium (Porcine) 400 unit 400 unit Q1H IV 11/18/16 08:00 11/18/16 18:00 Cefazolin Sodium/ Dextrose (Ancef Iv/D5 50ml) 52.5 ml @ 105 mls/hr DAILY@1400 IV 11/18/16 14:00 11/28/16 13:59 11/18/16 13:41 105 MLS/HR Hydromorphone HCl (Dilaudid Inj) 3 mg Q4H PRN IV 11/18/16 16:30 12/02/16 16:29 Objective Vital Signs Date Time Temp Pulse Resp B/P Pulse Ox O2 Delivery O2 Flow Rate FiO2 11/18/16 15:27 37.1 72 18 109/70 93 Room Air 11/18/16 13:30 36.8 79 18 133/83 95 Room Air 11/18/16 13:20 85 136/90 11/18/16 13:18 36.6 90 138/94 11/18/16 12:45 85 136/92 11/18/16 12:30 85 136/90 11/18/16 12:15 82 131/92 11/18/16 12:00 86 118/97 11/18/16 11:45 86 140/107 11/18/16 11:30 87 122/80 11/18/16 11:15 63 121/101 11/18/16 11:00 60 123/100 11/18/16 10:45 86 141/99 11/18/16 10:30 92 135/91 11/18/16 10:29 36.7 78 126/86 11/18/16 10:15 87 136/98 11/18/16 10:00 89 148/86 11/18/16 09:45 89 148/86 11/18/16 07:35 Room Air 11/18/16 07:13 36.9 63 15 132/81 91 Room Air 11/17/16 23:24 Room Air 11/17/16 23:20 37.1 69 14 107/67 95 Room Air 11/17/16 20:55 37.0 71 14 100/68 96 Room Air 11/17/16 15:50 36.9 73 16 103/60 94 Nasal Cannula Physical Exam General Appearance: no apparent distress Respiratory/Chest: no respiratory distress, no accessory muscle use, + pertinent finding (dialysis cath at left chest wall) Abdomen: normal bowel sounds, non tender, soft Extremities: + pertinent finding (L arm wrapped/bandaged - ilda in place) Laboratory Results Last 24 Hours Test 11/18/16 05:24 11/18/16 11:31 White Blood Count 6.56 K/uL Red Blood Count 3.02 M/uL Hemoglobin 8.8 g/dL Hematocrit 28.3 % Mean Corpuscular Volume 93.7 fL Mean Corpuscular Hemoglobin 29.1 pg Mean Corpuscular Hemoglobin Concent 31.1 g/dl RDW Standard Deviation 48.9 fL RDW Coefficient of Variation 14.2 % Platelet Count 191 K/uL Mean Platelet Volume 9.9 fL Sodium Level 134 mmol/L Potassium Level 4.9 mmol/L Chloride Level 98 mmol/L Carbon Dioxide Level 24 mmol/L Anion Gap 12.0 mmol/L Blood Urea Nitrogen 56 mg/dl Creatinine 13.00 mg/dl Est Creatinine Clear Calc Drug Dose 6.9 ml/min Estimated GFR () 5.0 Estimated GFR (Non- 4.3 BUN/Creatinine Ratio 4.3 Random Glucose 89 mg/dl Calcium Level 9.0 mg/dl Random Vancomycin Level 24.9 mcg/ml Assessment and Plan This is a 36 year old male with PMH of glomerulonephritis with failed kidney transplant, now ESRD on HD, CAD, HTN, depression/anxiety presents with infected left upper extremity AV fistula Wound Infection of Left Upper Extremity 11/18 MSSA - chau-sensitive switched antibiotics to Ancef for pain: Dilaudid increased to 3mg q4PRN, intermittent with Percocet will try to wean these pain medications in the next few days 11/17 recent AV fistula transposition on November 08 there is erythema, swelling, tenderness and warmth to touch no white count, no lactic acidosis, hemodynamically stable wound culture + for Staph Aureus, further speciation and sensitivities pending for now, will continue IV Vanco and IV Zosyn appreciate vascular surgery input ESRD on HD receives dialysis on nephrology consultation appreciated HTN difficult to control blood pressure as outpatient it is currently well controlled and we will keep his outpatient regimen for now CAD no chest pain continue b-parul, aspirin Depression/Anxiety continue home medications DVT ppx subq heparin FULL CODE
[2016-11-18] MEDS: HYDROmorphone INJ 1 MG/ML SYR IV PRN ×2 (16:58→21:07)
[2016-11-18 17:14] LABS: HEPATITIS B AB POS
[2016-11-18] MEDS: TRAZODONE HCL 50 MG TAB PO SCH (21:10)
[2016-11-18] MEDS: AMITRIPTYLINE HCL 25 MG TAB PO SCH (21:10)
[2016-11-19] MEDS ORDERED: CLONIDINE HCL 0.3 MG/24 HR TRANSDERM SYS TD SCH
[2016-11-19] MEDS: OXYCODONE/ACETAMINOPHEN 5-325 TAB PO PRN (00:01)
[2016-11-19] MEDS: CHECK CLONIDINE PATCH PLACEMENT SCH ×3 (00:02→15:37)
[2016-11-19] MEDS: HYDROmorphone INJ 1 MG/ML SYR IV PRN ×5 (01:05→21:06)
[2016-11-19 06:10] LABS: HEMATOCRIT 27.7 % (42-52); MEAN CELL VOLUME 92.3 fL (80-100); MEAN CORPUSCULAR HEMOGLOBIN 29.7 pg (25-34); MEAN CORPUSCULAR HGB CONC 32.1 g/dl (32-36); MEAN PLATELET VOLUME 9.8 fL (7.4-10.4); PLATELET COUNT 169 K/uL (130-400); WHITE BLOOD COUNT 5.21 K/uL (4.8-10.8)
[2016-11-19 06:48] LABS: BUN/CREATININE RATIO 4.1 (10-20); CALCIUM 8.8 mg/dl (8.5-10.1); CREATININE 9.3 mg/dl (0.60-1.40); POTASSIUM 4.8 mmol/L (3.5-5.1)
[2016-11-19] MEDS: METOCLOPRAMIDE HCL 10 MG TAB PO SCH ×3 (08:07→17:49)
[2016-11-19 08:08] VITALS: BP 124/76; PULSE 72; TEMP 36.5; O2SAT 96
[2016-11-19] MEDS: HEPARIN SOD 5000 UNIT/0.5 ML CARP SQ SCH ×2 (09:00→21:00)
[2016-11-19] MEDS: CHOLECALCIFEROL 1000 INTER.UNIT TAB PO SCH (09:27)
[2016-11-19] MEDS: SERTRALINE HCL 50 MG TAB PO SCH (09:27)
[2016-11-19] MEDS: GABAPENTIN 100 MG CAP PO SCH ×3 (09:28→21:14)
[2016-11-19] MEDS: SEVELAMER HYDROCH 800 MG TAB PO SCH ×3 (09:28→17:49)
[2016-11-19] MEDS: LABETALOL HCL 200 MG TAB PO SCH ×2 (09:28→21:14)
[2016-11-19] MEDS: CLONIDINE HCL 0.1 MG TAB PO SCH ×3 (09:28→21:11)
[2016-11-19] MEDS: CARVEDILOL 25 MG TAB PO SCH ×2 (09:28→21:12)
[2016-11-19] MEDS: ASPIRIN 81 MG ECTAB PO SCH (09:28)
[2016-11-19] MEDS: AMLODIPINE BESYLATE 5 MG TAB PO SCH (09:28)
[2016-11-19] MEDS: PANTOprazole SOD 40 MG TAB PO SCH ×2 (09:29→21:13)
--- NOTE | 2016-11-19 10:39 | Progress Note ---
Progress Note Date of Service: November 19, 2016. Subjective 36 yo m with multiple medical rproblems including ESRD on HD, s/p LUE basilic v AVF transposition, seen in f/u today. Pt states pain better controlled. Denies any new complaiunts. Problem List Medical Problems: (1) Abdominal pain Status: Acute (2) Abdominal pain Status: Acute (3) Abnormal EKG Status: Acute (4) Acute vomiting Status: Acute (5) Anemia Status: Acute (6) Back pain Status: Acute (7) Back pain Status: Acute (8) Elevated lipase Status: Acute (9) End stage renal disease Status: Acute (10) End stage renal failure on dialysis Status: Acute (11) Epigastric abdominal pain Status: Acute (12) ESRF (end stage renal failure) Status: Acute (13) Headache Status: Acute (14) Headache Status: Acute (15) Hypertension Status: Acute (16) Hypertensive emergency Status: Acute (17) Intractable abdominal pain Status: Acute (18) Lactic acidosis Status: Acute (19) Nausea & vomiting Status: Acute (20) Nausea & vomiting Status: Acute (21) Nausea & vomiting Status: Acute (22) Nausea and vomiting Status: Acute (23) Posterior reversible encephalopathy syndrome Status: Acute (24) Thrombocytopenia Status: Acute (25) Vomiting Status: Acute (26) Vomiting Status: Acute Objective Vital Signs Vital Signs Past 12 Hours Date Time Temp Pulse Resp B/P Pulse Ox O2 Delivery O2 Flow Rate FiO2 11/19/16 08:08 36.5 72 16 124/76 96 Room Air 11/19/16 07:47 Room Air 11/19/16 00:06 Room Air 11/18/16 22:53 36.8 71 16 101/59 91 Room Air Exam CONST: A&O x4, NAD, chronically ill appearing male EXT: LUE AVF with excellent thrill/bruit. Minimal serosan drainage on dressing. incision with ilda present. Minimal periwound erythema, significantly improved from office visit last week. + local edema and hematoma noted. + tenderness. scabbing and slight dehiscence of some areas along staple line. Most ilda pulled through already. Ogden removed today. light dressing applied. Intake & Output 8-Hour Column 11/18/16 11/18/16 11/19/16 15:59 23:59 07:59 Intake Total 100 ml 120 ml Output Total 2500 ml 3400 ml Balance -2400 ml -3280 ml 24-Hour Column 11/19/16 07:59 Intake Total 220 ml Output Total 5900 ml Balance -5680 ml Laboratory and Microbiology Results Past 24 Hours Test 11/18/16 16:35 11/19/16 05:45 Range/Units Hepatitis B Surface Antigen NEG NEG Hepatitis B Surface Antibody POS White Blood Count 5.21 4.8-10.8 K/uL Red Blood Count 3.00 4.7-6.1 M/uL Hemoglobin 8.9 14.0-18.0 g/dL Hematocrit 27.7 42-52 % Mean Corpuscular Volume 92.3 80-100 fL Mean Corpuscular Hemoglobin 29.7 25-34 pg Mean Corpuscular Hemoglobin Concent 32.1 32-36 g/dl RDW Standard Deviation 47.7 36.4-46.3 fL RDW Coefficient of Variation 14.1 11.5-14.5 % Platelet Count 169 130-400 K/uL Mean Platelet Volume 9.8 7.4-10.4 fL Sodium Level 134 136-145 mmol/L Potassium Level 4.8 3.5-5.1 mmol/L Chloride Level 99 98-107 mmol/L Carbon Dioxide Level 26 21-32 mmol/L Anion Gap 9.0 3-11 mmol/L Blood Urea Nitrogen 38 7-18 mg/dl Creatinine 9.30 0.60-1.40 mg/dl Est Creatinine Clear Calc Drug Dose 9.6 ml/min Estimated GFR () 7.4 Estimated GFR (Non- 6.4 BUN/Creatinine Ratio 4.1 10-20 Random Glucose 78 70-99 mg/dl Calcium Level 8.8 8.5-10.1 mg/dl ASSESSMENT and PLAN: LUE wound infection s/p LUE basilic v AVF transposition Pt doing well with abx, labs stable. No plan for surgical intervention at this time. OK for d/c from vascular standpoint on oral abx. Light dressing for coverage. Will see in office next week. Please call if needed
[2016-11-19] MEDS: CEFAZOLIN IV 500 MG in DEXTROSE 5% 50ML 50 ML IV SCH (13:44)
--- NOTE | 2016-11-19 13:46 | Progress Note ---
Subjective Date of Service: November 19, 2016. Subjective Pt evaluation today including: conversation w/ patient, physical exam, lab review, review of studies, review of inpatient medication list Saw/examined the patient in room 357 C/o pain at the L UE; ilda removed Problem List Medical Problems: (1) Abdominal pain Status: Acute (2) Abdominal pain Status: Acute (3) Abnormal EKG Status: Acute (4) Acute vomiting Status: Acute (5) Anemia Status: Acute (6) Back pain Status: Acute (7) Back pain Status: Acute (8) Elevated lipase Status: Acute (9) End stage renal disease Status: Acute (10) End stage renal failure on dialysis Status: Acute (11) Epigastric abdominal pain Status: Acute (12) ESRF (end stage renal failure) Status: Acute (13) Headache Status: Acute (14) Headache Status: Acute (15) Hypertension Status: Acute (16) Hypertensive emergency Status: Acute (17) Intractable abdominal pain Status: Acute (18) Lactic acidosis Status: Acute (19) Nausea & vomiting Status: Acute (20) Nausea & vomiting Status: Acute (21) Nausea & vomiting Status: Acute (22) Nausea and vomiting Status: Acute (23) Posterior reversible encephalopathy syndrome Status: Acute (24) Thrombocytopenia Status: Acute (25) Vomiting Status: Acute (26) Vomiting Status: Acute Review of Systems Constitutional: No chills, No fever Respiratory: No shortness of breath Cardiac: No chest pain Musculoskeletal: + joint pain, + muscle pain Medications Current Inpatient Medications Medications (Trade) Dose Ordered Sig/Betsy Route Start Time Stop Time Status Last Admin Dose Admin Acetaminophen (Tylenol Tab) 650 mg Q4H PRN PO 11/16/16 15:15 12/16/16 15:14 Heparin Sodium (Porcine) (Heparin Sq 5000 Unit/0.5ml) 5,000 unit Q12 SQ 11/16/16 21:00 12/16/16 20:59 Alprazolam (Xanax Tab) 0.5 mg DAILY PRN PO 11/16/16 16:15 12/16/16 16:14 11/18/16 08:56 0.5 MG Amitriptyline HCl (Elavil Tab) 25 mg HS PO 11/16/16 21:00 12/16/16 20:59 11/18/16 21:10 25 MG Amlodipine Besylate (Norvasc Tab) 10 mg QAM PO 11/17/16 09:00 12/17/16 08:59 11/19/16 09:28 10 MG Aspirin (Ecotrin Tab) 81 mg QAM PO 11/17/16 09:00 12/17/16 08:59 11/19/16 09:28 81 MG Carvedilol (Coreg Tab) 25 mg BID PO 11/16/16 21:00 12/16/16 20:59 11/19/16 09:28 25 MG Cholecalciferol (Vitamin D Tab) 3,000 inter.unit DAILY PO 11/17/16 09:00 12/17/16 08:59 11/19/16 09:27 3,000 INTER.UNIT Gabapentin (Neurontin Cap) 100 mg TID PO 11/16/16 21:00 12/16/16 20:59 11/19/16 09:28 100 MG Hydralazine HCl (Apresoline Tab) 50 mg TID PO 11/16/16 21:00 12/16/16 20:59 11/19/16 09:28 50 MG Labetalol HCl (Normodyne Tab) 200 mg BID PO 11/16/16 21:00 12/16/16 20:59 11/19/16 09:28 200 MG Metoclopramide HCl (Reglan Tab) 10 mg AC PO 11/17/16 08:00 12/17/16 07:59 11/19/16 12:01 10 MG Oxycodone/ Acetaminophen (Percocet 5-325mg Tab) 1 tab Q4H PRN PO 11/16/16 16:15 11/30/16 16:14 11/19/16 00:01 1 TAB Pantoprazole Sodium (Protonix Tab) 40 mg BID PO 11/16/16 21:00 12/16/16 20:59 11/19/16 09:29 40 MG Sertraline HCl (Zoloft Tab) 50 mg QAM PO 11/17/16 09:00 12/17/16 08:59 11/19/16 09:27 50 MG Sevelamer HCl (Renagel Tab) 3,200 mg TIDM PO 11/16/16 17:45 12/16/16 17:59 11/19/16 12:32 3,200 MG Trazodone HCl (Desyrel Tab) 50 mg HS PO 11/16/16 21:00 12/16/16 20:59 11/18/16 21:10 50 MG Clonidine HCl (Catapres Tab) 0.4 mg TID PO 11/16/16 21:00 12/16/16 20:59 11/19/16 09:28 0.4 MG Miscellaneous Information (Order Awaiting Action) 1 ea QS N/A 11/17/16 00:00 12/17/16 00:00 Miscellaneous Information 1 ea 1 ea QS N/A 11/17/16 00:00 12/17/16 00:00 11/19/16 07:35 1 EA Cefazolin Sodium/ Dextrose (Ancef Iv/D5 50ml) 52.5 ml @ 105 mls/hr DAILY@1400 IV 11/18/16 14:00 11/28/16 13:59 11/18/16 13:41 105 MLS/HR Hydromorphone HCl (Dilaudid Inj) 3 mg Q4H PRN IV 11/18/16 16:30 12/02/16 16:29 11/19/16 09:31 3 MG Clonidine HCl (Gweplcrb-Prw-0 0.3mg/24hr Patch) 1 patch Tu@0000 TD 11/19/16 00:00 12/19/16 00:00 11/19/16 01:03 1 PATCH Miscellaneous (Remove Clonidine Patch) 1 ea Mo@2359 N/A 11/25/16 23:59 12/25/16 23:58 Objective Vital Signs Date Time Temp Pulse Resp B/P Pulse Ox O2 Delivery O2 Flow Rate FiO2 11/19/16 08:08 36.5 72 16 124/76 96 Room Air 11/19/16 07:47 Room Air 11/19/16 00:06 Room Air 11/18/16 22:53 36.8 71 16 101/59 91 Room Air 11/18/16 17:17 36.5 90 138/68 11/18/16 16:30 Room Air 11/18/16 15:27 37.1 72 18 109/70 93 Room Air Physical Exam General Appearance: + mild distress (secondary to pain) Respiratory/Chest: lungs clear, normal breath sounds, no respiratory distress, no accessory muscle use Cardiovascular: regular rate, rhythm, no edema, no murmur Extremities: + swelling (L medial bicep; ilda removed, erythema improved), + pertinent finding Laboratory Results Last 24 Hours Test 11/18/16 16:35 11/19/16 05:45 Hepatitis B Surface Antigen NEG Hepatitis B Surface Antibody POS White Blood Count 5.21 K/uL Red Blood Count 3.00 M/uL Hemoglobin 8.9 g/dL Hematocrit 27.7 % Mean Corpuscular Volume 92.3 fL Mean Corpuscular Hemoglobin 29.7 pg Mean Corpuscular Hemoglobin Concent 32.1 g/dl RDW Standard Deviation 47.7 fL RDW Coefficient of Variation 14.1 % Platelet Count 169 K/uL Mean Platelet Volume 9.8 fL Sodium Level 134 mmol/L Potassium Level 4.8 mmol/L Chloride Level 99 mmol/L Carbon Dioxide Level 26 mmol/L Anion Gap 9.0 mmol/L Blood Urea Nitrogen 38 mg/dl Creatinine 9.30 mg/dl Est Creatinine Clear Calc Drug Dose 9.6 ml/min Estimated GFR () 7.4 Estimated GFR (Non- 6.4 BUN/Creatinine Ratio 4.1 Random Glucose 78 mg/dl Calcium Level 8.8 mg/dl Assessment and Plan This is a 36 year old male with PMH of glomerulonephritis with failed kidney transplant, now ESRD on HD, CAD, HTN, depression/anxiety presents with infected left upper extremity AV fistula Wound Infection of Left Upper Extremity 11/19 currently on Ancef MSSA on cultures - pansensitive can switch to Keflex decrease Dilaudid dose and increase Percocet dose possible d/c home tomorrow (11/20) 11/18 MSSA - chau-sensitive switched antibiotics to Ancef for pain: Dilaudid increased to 3mg q4PRN, intermittent with Percocet will try to wean these pain medications in the next few days 11/17 recent AV fistula transposition on November 08 there is erythema, swelling, tenderness and warmth to touch no white count, no lactic acidosis, hemodynamically stable wound culture + for Staph Aureus, further speciation and sensitivities pending for now, will continue IV Vanco and IV Zosyn appreciate vascular surgery input ESRD on HD receives dialysis on nephrology consultation appreciated HTN difficult to control blood pressure as outpatient it is currently well controlled and we will keep his outpatient regimen for now CAD no chest pain continue b-parul, aspirin Depression/Anxiety continue home medications DVT ppx subq heparin FULL CODE
[2016-11-19] MEDS: OXYCODONE/ACETAMINOPHEN 7.5-325 TAB PO PRN ×3 (14:09→22:29)
[2016-11-19 15:40] VITALS: BP 115/75; PULSE 80; TEMP 36.8; O2SAT 92
[2016-11-19 16:00] VITALS: O2SAT 96
[2016-11-19 21:08] VITALS: BP 116/69; PULSE 65
[2016-11-19] MEDS: AMITRIPTYLINE HCL 25 MG TAB PO SCH (21:12)
[2016-11-19] MEDS: TRAZODONE HCL 50 MG TAB PO SCH (21:13)
[2016-11-19 22:55] VITALS: BP 97/58; PULSE 64; TEMP 36.8; O2SAT 96
[2016-11-20] VITALS (20 sets, daily range): BP systolic 90–132; BP diastolic 55–90; PULSE 59–90; TEMP 36.6–36.9; O2SAT 95–98
[2016-11-20] MEDS: CHECK CLONIDINE PATCH PLACEMENT SCH ×3 (00:14→15:32)
[2016-11-20] MEDS: HYDROmorphone INJ 1 MG/ML SYR IV PRN ×4 (03:44→20:06)
[2016-11-20 06:14] LABS: HEMATOCRIT 27.3 % (42-52); MEAN CELL VOLUME 91.6 fL (80-100); MEAN CORPUSCULAR HEMOGLOBIN 28.5 pg (25-34); MEAN CORPUSCULAR HGB CONC 31.1 g/dl (32-36); MEAN PLATELET VOLUME 10.3 fL (7.4-10.4); PLATELET COUNT 156 K/uL (130-400); RED BLOOD COUNT 2.98 M/uL (4.7-6.1); WHITE BLOOD COUNT 4.95 K/uL (4.8-10.8)
[2016-11-20] MEDS: CARVEDILOL 25 MG TAB PO SCH ×2 (06:54→21:15)
[2016-11-20] MEDS: AMLODIPINE BESYLATE 5 MG TAB PO SCH (06:54)
[2016-11-20] MEDS: CLONIDINE HCL 0.1 MG TAB PO SCH ×3 (06:54→21:13)
[2016-11-20] MEDS: LABETALOL HCL 200 MG TAB PO SCH ×2 (06:54→21:12)
[2016-11-20 07:07] LABS: BUN/CREATININE RATIO 4.6 (10-20); CALCIUM 8.4 mg/dl (8.5-10.1); POTASSIUM 6.5 mmol/L (3.5-5.1)
[2016-11-20] MEDS: ALPRAZOLAM 0.5 MG TAB PO PRN (07:30)
[2016-11-20] MEDS: OXYCODONE/ACETAMINOPHEN 7.5-325 TAB PO PRN ×3 (07:31→22:45)
[2016-11-20] MEDS: SERTRALINE HCL 50 MG TAB PO SCH (07:32)
[2016-11-20] MEDS: ASPIRIN 81 MG ECTAB PO SCH (07:32)
[2016-11-20] MEDS: GABAPENTIN 100 MG CAP PO SCH ×3 (07:32→21:11)
[2016-11-20] MEDS: METOCLOPRAMIDE HCL 10 MG TAB PO SCH ×3 (07:32→16:47)
[2016-11-20] MEDS: SEVELAMER HYDROCH 800 MG TAB PO SCH ×3 (07:32→16:47)
[2016-11-20] MEDS: HEPARIN SOD 5000 UNIT/0.5 ML CARP SQ SCH ×2 (07:33→21:00)
[2016-11-20] MEDS: PANTOprazole SOD 40 MG TAB PO SCH ×2 (07:33→21:14)
[2016-11-20] MEDS: CHOLECALCIFEROL 1000 INTER.UNIT TAB PO SCH (07:33)
[2016-11-20] MEDS ORDERED: EPOETIN ALFA 10,000 UNITS/ML VIAL IV. SCH (09:00)
[2016-11-20] MEDS ORDERED: DEXTROSE 50% 50 ML SYR IV ONE (09:30)
[2016-11-20] MEDS ORDERED: CALCIUM GLUCONATE 10% 2,000 MG in SODIUM CHLORIDE 0.9% 50ML 50 ML IV ONE (09:30)
[2016-11-20] MEDS ORDERED: INSULIN HUMAN REGULAR PER UNIT 10 UNITS in SYRINGE 9.9 ML IV ONE (09:30)
--- NOTE | 2016-11-20 10:41 | Dialysis Progress Note ---
Nephrology Dialysis Note Date of Service: November 20, 2016. Subjective 36 yo male with esrd who presented with superficial skin infection involving fistula superficialization. left arm swollen, ilda removed. pt had difficulty sleeping last night. pt found to have elevated k this morning despite being on a renal diet. noticed to have twitching this morning. pt comfortable and alert. tolerating dialysis well. catheter working well. Objective Date Time Temp Pulse Resp B/P Pulse Ox O2 Delivery O2 Flow Rate FiO2 11/20/16 10:23 36.8 62 90/57 11/20/16 07:53 36.8 60 18 106/64 98 Room Air 11/20/16 07:20 Room Air 11/20/16 06:12 36.6 63 16 93/55 95 Room Air 11/19/16 22:55 36.8 64 16 97/58 96 Room Air 11/19/16 21:08 65 116/69 11/19/16 19:20 Room Air 11/19/16 16:00 96 Room Air 11/19/16 15:40 36.8 80 17 115/75 92 Room Air Physical Exam: General-aaox3 Eyes-no scleral icterus ENT-mmm Neck-supple Lungs-clear Heart-regular Abdomen-bs+ s/nt/nd Extremities-left arm swollen Neuro-nonfocal Current Inpatient Medications Medications (Trade) Dose Ordered Sig/Betsy Route Start Time Stop Time Status Last Admin Dose Admin Acetaminophen (Tylenol Tab) 650 mg Q4H PRN PO 11/16/16 15:15 12/16/16 15:14 Heparin Sodium (Porcine) (Heparin Sq 5000 Unit/0.5ml) 5,000 unit Q12 SQ 11/16/16 21:00 12/16/16 20:59 Alprazolam (Xanax Tab) 0.5 mg DAILY PRN PO 11/16/16 16:15 12/16/16 16:14 11/20/16 07:30 0.5 MG Amitriptyline HCl (Elavil Tab) 25 mg HS PO 11/16/16 21:00 12/16/16 20:59 11/19/16 21:12 25 MG Amlodipine Besylate (Norvasc Tab) 10 mg QAM PO 11/17/16 09:00 12/17/16 08:59 11/19/16 09:28 10 MG Aspirin (Ecotrin Tab) 81 mg QAM PO 4/30/17 09:00 12/17/16 08:59 11/20/16 07:32 81 MG Carvedilol (Coreg Tab) 25 mg BID PO 11/16/16 21:00 12/16/16 20:59 11/19/16 21:12 25 MG Cholecalciferol (Vitamin D Tab) 3,000 inter.unit DAILY PO 11/17/16 09:00 12/17/16 08:59 11/20/16 07:33 3,000 INTER.UNIT Gabapentin (Neurontin Cap) 100 mg TID PO 11/16/16 21:00 12/16/16 20:59 11/20/16 07:32 100 MG Hydralazine HCl (Apresoline Tab) 50 mg TID PO 11/16/16 21:00 12/16/16 20:59 11/19/16 21:15 50 MG Labetalol HCl (Normodyne Tab) 200 mg BID PO 11/16/16 21:00 12/16/16 20:59 11/19/16 21:14 200 MG Metoclopramide HCl (Reglan Tab) 10 mg AC PO 11/17/16 08:00 12/17/16 07:59 11/20/16 07:32 10 MG Pantoprazole Sodium (Protonix Tab) 40 mg BID PO 11/16/16 21:00 12/16/16 20:59 11/20/16 07:33 40 MG Sertraline HCl (Zoloft Tab) 50 mg QAM PO 11/17/16 09:00 12/17/16 08:59 11/20/16 07:32 50 MG Sevelamer HCl (Renagel Tab) 3,200 mg TIDM PO 11/16/16 17:45 12/16/16 17:59 11/20/16 07:32 3,200 MG Trazodone HCl (Desyrel Tab) 50 mg HS PO 11/16/16 21:00 12/16/16 20:59 11/19/16 21:13 50 MG Clonidine HCl (Catapres Tab) 0.4 mg TID PO 11/16/16 21:00 12/16/16 20:59 11/19/16 21:11 0.4 MG Miscellaneous Information (Order Awaiting Action) 1 ea QS N/A 11/17/16 00:00 12/17/16 00:00 Miscellaneous Information 1 ea 1 ea QS N/A 11/17/16 00:00 12/17/16 00:00 11/20/16 07:30 1 EA Cefazolin Sodium/ Dextrose (Ancef Iv/D5 50ml) 52.5 ml @ 105 mls/hr DAILY@1400 IV 11/18/16 14:00 11/28/16 13:59 11/19/16 13:44 105 MLS/HR Clonidine HCl (Ysrfqqgs-Yvo-3 0.3mg/24hr Patch) 1 patch Tu@0000 TD 11/19/16 00:00 12/19/16 00:00 11/19/16 01:03 1 PATCH Miscellaneous (Remove Clonidine Patch) 1 ea Mo@2359 N/A 11/25/16 23:59 12/25/16 23:58 Hydromorphone HCl (Dilaudid Inj) 1 mg Q4H PRN IV 11/19/16 16:30 12/03/16 16:29 11/20/16 08:11 1 MG Oxycodone/ Acetaminophen (Percocet 7.5-325MG Tab) 1 tab Q4H PRN PO 11/19/16 13:45 12/03/16 13:44 11/20/16 07:31 1 TAB Epoetin Elkin (Procrit Inj) 10,000 units TODAY@0900 IV. 11/20/16 09:00 11/20/16 18:00 Last 24 Hours Test 11/20/16 05:55 White Blood Count 4.95 K/uL Red Blood Count 2.98 M/uL Hemoglobin 8.5 g/dL Hematocrit 27.3 % Mean Corpuscular Volume 91.6 fL Mean Corpuscular Hemoglobin 28.5 pg Mean Corpuscular Hemoglobin Concent 31.1 g/dl RDW Standard Deviation 47.4 fL RDW Coefficient of Variation 14.1 % Platelet Count 156 K/uL Mean Platelet Volume 10.3 fL Sodium Level 132 mmol/L Potassium Level 6.5 mmol/L Chloride Level 101 mmol/L Carbon Dioxide Level 21 mmol/L Anion Gap 10.0 mmol/L Blood Urea Nitrogen 55 mg/dl Creatinine 12.00 mg/dl Est Creatinine Clear Calc Drug Dose 7.4 ml/min Estimated GFR () 5.5 Estimated GFR (Non- 4.7 BUN/Creatinine Ratio 4.6 Random Glucose 79 mg/dl Calcium Level 8.4 mg/dl Assessment & Plan ESRD-seen on dialysis. bp is low. no uf today. dialyze for clearance and lowering of potassium. Anemia of renal failure-hg levels are low and giving procrit prn to help keep hg between 10 and 11
[2016-11-20] MEDS: CEFAZOLIN IV 500 MG in DEXTROSE 5% 50ML 50 ML IV SCH (13:34)
--- NOTE | 2016-11-20 14:07 | Progress Note ---
Progress Note Date of Service November 20, 2016. Progress Note ID Consult Dictated #[id number] A/P: 1. AV Fistula infection - MSSA -Continue ancef, blood cultures negative. -Upon d/c wound adjust ancef dose to 2g post dialysis on dialysis days - would give min 3 weeks -Can follow up with ID post d/c to assess healing and extend course if needed -thank you
--- NOTE | 2016-11-20 15:14 | INFECT. DISEASE CONSULTATION ---
DATE OF CONSULTATION: 11/20/2016 DATE OF CONSULTATION: 11/20/2016. HISTORY OF PRESENT ILLNESS: This is a 36-year-old gentleman who was admitted after he had worsening left upper extremity pain at the site of a recently placed AV fistula. This was done on 10/29/2016. He initially tolerated the procedure well but developed subsequent pain and dehiscence of his wound. He had been placed on Augmentin, but did not have any improvement and was subsequently admitted to the hospital. A blood culture was done on the and is growing MSSA. Blood cultures were obtained at that time and are no growth to date x2 sets. He does admit to some intermittent fevers, although he has been afebrile since he was admitted to the hospital. He has not had leukocytosis. He was initially placed on vancomycin and since sensitivities returned he has been on renally dosed Ancef and is tolerating this well. He states overall he is feeling better but does continue to complain of pain in his left upper extremity, although this has improved. He currently denies any fevers or chills. His ilda have since been removed. He is being followed by vascular surgery and there is no plan for additional surgical intervention at this time. He states the drainage has stopped. He denies any bleeding from the area. He denies any nausea, vomiting, diarrhea or abdominal pain. All remaining review of systems are reviewed and unremarkable. PAST MEDICAL HISTORY: Anxiety, coronary artery disease, chronic kidney disease, depression, end-stage renal disease on dialysis, hypertension, history of kidney transplant in 1984 and 2012 with subsequent failure and dialysis. PAST SURGICAL HISTORY: Includes coronary stents, AV fistula in the left upper extremity on 10/29/2016 and Perm-A-Cath placement for dialysis. FAMILY HISTORY: Noncontributory. SOCIAL HISTORY: Significant for daily tobacco use. He does admit to occasional alcohol use. Denies any drug use. ALLERGIES: HE HAS ALLERGIES TO PREDNISONE, TERAZOSIN AND MINOXIDIL. PHYSICAL EXAMINATION: VITAL SIGNS: He has been afebrile since admission. Pulse 84, respiratory rate is in the 20s, blood pressure is 123/81 and oxygen saturation has been 98% on room air. GENERAL: He is awake, alert and oriented x3. He is in no acute distress. HEAD, EYES, EARS, NOSE, AND THROAT: Mucous membranes are moist. Extraocular muscles are intact. HEART: Regular. LUNGS: Clear bilaterally. ABDOMEN: Soft, nontender, nondistended. EXTREMITIES: There is no lower extremity edema. Examination of the left upper extremity reveals significant erythema and induration around his incision. Orange have been removed. There is no purulent drainage or bleeding. There is warmth and tenderness to palpation. Perm-A-Cath is clean, dry and intact. LABORATORY STUDIES: Chemistry panel today reveals a sodium of 132, potassium 6.5, chloride 101, bicarbonate 21, BUN 55, creatinine is 12, glucose is 79. These were done at 6:00 a.m. and he is status post dialysis on my examination. CBC reveals a white blood cell count of 4.9, hemoglobin 8.5, platelets 156. Again, a wound culture on the is growing MSSA. Blood cultures are negative. Chest x-ray is negative. ASSESSMENT AND PLAN: Infected arteriovenous fistula. At this time, he does not have any positive blood cultures. He is afebrile without leukocytosis and is hemodynamically stable; however, with the degree of surrounding cellulitis I think it would be warranted to continue with IV antibiotics. My recommendation would be to continue cefepime while in the hospital. Continue with Ancef while in the hospital and upon discharge his Ancef dose can be changed to 2 grams after dialysis on dialysis days. He will not require any additional IV access such as PICC line as he can have his antibiotics dosed around his dialysis schedule. I would give a minimum of 3 weeks. He certainly can follow up in the office post discharge as well. Thank you for this consultation.
[2016-11-20 16:44] LABS: BUN/CREATININE RATIO 3.4 (10-20); CALCIUM 8.3 mg/dl (8.5-10.1); CREATININE 6.3 mg/dl (0.60-1.40); MAGNESIUM 2.2 mg/dl (1.8-2.4)
[2016-11-20] MEDS: TRAZODONE HCL 50 MG TAB PO SCH (21:11)
[2016-11-20] MEDS: AMITRIPTYLINE HCL 25 MG TAB PO SCH (21:12)
--- NOTE | 2016-11-20 22:57 | Progress Note ---
Medicine Progress Note Date & Time of Visit: November 20, 2016 at 16:25. Subjective This is a 36 year old male with PMH of glomerulonephritis with failed kidney transplant, now ESRD on HD, CAD, HTN, depression/anxiety presents with infected left upper extremity AV fistula -doing well post-HD today but is fatigued -has pain in LUE that is controlled -denies chest pain, SOB or other symptoms at this time -tolerating PO Objective Last 8 Hrs Date Time Temp Pulse Resp B/P Pulse Ox O2 Delivery O2 Flow Rate FiO2 11/20/16 14:58 36.9 67 18 110/71 97 Room Air 11/20/16 13:53 36.6 84 123/81 11/20/16 13:39 124/82 11/20/16 13:00 88 122/70 11/20/16 12:45 89 123/73 11/20/16 12:30 81 127/75 11/20/16 12:15 79 132/67 11/20/16 12:00 90 118/87 11/20/16 11:45 59 130/90 11/20/16 11:30 74 119/75 11/20/16 11:15 84 108/64 11/20/16 11:00 69 129/75 11/20/16 10:45 84 99/83 11/20/16 10:34 36.8 62 90/57 11/20/16 10:30 84 99/83 11/20/16 10:23 36.8 62 90/57 11/20/16 10:15 68 101/63 Physical Exam: GEN: WNWD, in no acute distress, alert and appropriate HEENT: NC/AT, normal sclerae CARDIO: reg rate, 3/6 ORION across precordium LUNGS: CTA bilaterally, no crackles, rales or wheezes, good diaphragmatic excursion ABD: soft, non-tender, non-distended, no rebound or guarding EXTREMITY: LUE fistula with palpable thrill. LUE upper arm area is red, warm and swollen with large incision that has not healed completely and is partially open. No drainage seen. Entire L arm is swollen as a result. RP and DP palpable 2+ bilat, no LE swelling or edema, extremities are warm and well- perfused NEURO: no gross focal deficits x has some sensation loss on L forearm area assoc with area of swelling. MUSC: 5/5 strength throughout, no focal deficits SKIN: warm and dry, multiple tattooes and wound as above. Laboratory Results: 11/20/16 05:55 11/20/16 16:10 Test 11/16/16 12:05 11/16/16 12:15 11/17/16 08:16 11/18/16 05:24 Immature Granulocyte % (Auto) 0.1 % White Blood Count 7.18 K/uL (4.8-10.8) Red Blood Count 3.57 M/uL (4.7-6.1) Hemoglobin 11.0 g/dL (14.0-18.0) Hematocrit 33.9 % (42-52) Mean Corpuscular Volume 95.0 fL (80-100) Mean Corpuscular Hemoglobin 30.8 pg (25-34) Mean Corpuscular Hemoglobin Concent 32.4 g/dl (32-36) Platelet Count 245 K/uL (130-400) Mean Platelet Volume 10.4 fL (7.4-10.4) Neutrophils (%) (Auto) 68.0 % Lymphocytes (%) (Auto) 16.3 % Monocytes (%) (Auto) 8.5 % Eosinophils (%) (Auto) 6.1 % Basophils (%) (Auto) 1.0 % Neutrophils # (Auto) 4.88 K/uL (1.4-6.5) Lymphocytes # (Auto) 1.17 K/uL (1.2-3.4) Monocytes # (Auto) 0.61 K/uL (0.11-0.59) Eosinophils # (Auto) 0.44 K/uL (0-0.5) Basophils # (Auto) 0.07 K/uL (0-0.2) Immature Granulocyte # (Auto) 0.01 K/uL (0.00-0.02) Prothrombin Time 11.8 SECONDS (9.0-12.0) Prothromb Time International Ratio 1.1 (0.9-1.1) Activated Partial Thromboplast Time 35.9 SECONDS (21.0-31.0) Partial Thromboplastin Ratio 1.4 Total Bilirubin 0.3 mg/dl (0.2-1) Aspartate Amino Transf (AST/SGOT) 16 U/L (15-37) Alanine Aminotransferase (ALT/SGPT) 14 U/L (12-78) Alkaline Phosphatase 99 U/L (45-117) Total Protein 9.2 gm/dl (6.4-8.2) Albumin 3.5 gm/dl (3.4-5.0) Globulin 5.7 gm/dl (2.5-4.0) Albumin/Globulin Ratio 0.6 (0.9-2) Bedside Lactic Acid Venous 0.75 mmol/L (0.90-1.70) Bedside Glucose 115 mg/dl (70-99) Random Vancomycin Level 24.9 mcg/ml Test 11/18/16 16:35 11/20/16 05:55 11/20/16 16:10 Hepatitis B Surface Antigen NEG (NEG) Hepatitis B Surface Antibody POS Red Blood Count 2.98 M/uL (4.7-6.1) Mean Corpuscular Volume 91.6 fL (80-100) Mean Corpuscular Hemoglobin 28.5 pg (25-34) Mean Corpuscular Hemoglobin Concent 31.1 g/dl (32-36) RDW Standard Deviation 47.4 fL (36.4-46.3) RDW Coefficient of Variation 14.1 % (11.5-14.5) Mean Platelet Volume 10.3 fL (7.4-10.4) Anion Gap 6.0 mmol/L (3-11) Est Creatinine Clear Calc Drug Dose 14.3 ml/min Estimated GFR () 11.9 Estimated GFR (Non- 10.3 BUN/Creatinine Ratio 3.4 (10-20) Calcium Level 8.3 mg/dl (8.5-10.1) Magnesium Level 2.2 mg/dl (1.8-2.4) Date/Time Source Procedure Growth Status 11/16/16 13:20 Blood Blood Culture - Preliminary NO GROWTH TO DATE. Resulted 11/17/16 00:30 Nasal MRSA DNA Surveillance Screen - Final Specimen Negative for MRSA by DNA Probe Complete 11/16/16 15:20 Incision Site Arm , Left Upper Gram Stain - Final Complete 11/16/16 15:20 Wound Culture - Final Staphylococcus Aureus Complete Last 24 Hours Test 11/20/16 05:55 11/20/16 16:10 White Blood Count 4.95 K/uL Red Blood Count 2.98 M/uL Hemoglobin 8.5 g/dL Hematocrit 27.3 % Mean Corpuscular Volume 91.6 fL Mean Corpuscular Hemoglobin 28.5 pg Mean Corpuscular Hemoglobin Concent 31.1 g/dl RDW Standard Deviation 47.4 fL RDW Coefficient of Variation 14.1 % Platelet Count 156 K/uL Mean Platelet Volume 10.3 fL Sodium Level 132 mmol/L Potassium Level 6.5 mmol/L Chloride Level 101 mmol/L Carbon Dioxide Level 21 mmol/L Anion Gap 10.0 mmol/L Blood Urea Nitrogen 55 mg/dl Creatinine 12.00 mg/dl Est Creatinine Clear Calc Drug Dose 7.4 ml/min Estimated GFR () 5.5 Estimated GFR (Non- 4.7 BUN/Creatinine Ratio 4.6 Random Glucose 79 mg/dl Calcium Level 8.4 mg/dl Assessment & Plan This is a 36 year old male with PMH of glomerulonephritis with failed kidney transplant, now ESRD on HD, CAD, HTN, depression/anxiety presents with infected left upper extremity AV fistula Wound Infection of Left Upper Extremity 11/20 -ID was consulted and recommended IV Ancef for min 3 weeks to be taken as higher amount in HD TIW -likely dc in am and send to ID as outpatient for follow-up to ensure healing is occurring and adjust regimen as needed. 11/19 currently on Ancef MSSA on cultures - pansensitive can switch to Keflex decrease Dilaudid dose and increase Percocet dose possible d/c home tomorrow (11/20) 11/18 MSSA - chau-sensitive switched antibiotics to Ancef for pain: Dilaudid increased to 3mg q4PRN, intermittent with Percocet will try to wean these pain medications in the next few days 11/17 recent AV fistula transposition on November 08 there is erythema, swelling, tenderness and warmth to touch no white count, no lactic acidosis, hemodynamically stable wound culture + for Staph Aureus, further speciation and sensitivities pending for now, will continue IV Vanco and IV Zosyn appreciate vascular surgery input ESRD on HD receives dialysis on including today nephrology consultation appreciated HTN controlled, cont home meds CAD s/p stent no chest pain continue b-parul, aspirin Depression/Anxiety continue home medications Acute hyperkalemia-treated this morning K 6.5 with IV insulin and glucose along with CaGluc. Then patient went to HD. Repeat K this afternoon was 4.0. DVT ppx subq heparin FULL CODE Dispo-likely to home in am DO Tai Scanlon Hospitalist Consultants: Nephrology Current Inpatient Medications: Current Inpatient Medications Medications (Trade) Dose Ordered Sig/Betsy Route Start Time Stop Time Status Last Admin Dose Admin Acetaminophen (Tylenol Tab) 650 mg Q4H PRN PO 11/16/16 15:15 12/16/16 15:14 Heparin Sodium (Porcine) (Heparin Sq 5000 Unit/0.5ml) 5,000 unit Q12 SQ 11/16/16 21:00 12/16/16 20:59 Alprazolam (Xanax Tab) 0.5 mg DAILY PRN PO 11/16/16 16:15 12/16/16 16:14 11/20/16 07:30 0.5 MG Amitriptyline HCl (Elavil Tab) 25 mg HS PO 11/16/16 21:00 12/16/16 20:59 11/19/16 21:12 25 MG Amlodipine Besylate (Norvasc Tab) 10 mg QAM PO 11/17/16 09:00 12/17/16 08:59 11/19/16 09:28 10 MG Aspirin (Ecotrin Tab) 81 mg QAM PO 11/17/16 09:00 12/17/16 08:59 11/20/16 07:32 81 MG Carvedilol (Coreg Tab) 25 mg BID PO 11/16/16 21:00 12/16/16 20:59 11/19/16 21:12 25 MG Cholecalciferol (Vitamin D Tab) 3,000 inter.unit DAILY PO 11/17/16 09:00 12/17/16 08:59 11/20/16 07:33 3,000 INTER.UNIT Gabapentin (Neurontin Cap) 100 mg TID PO 11/16/16 21:00 12/16/16 20:59 11/20/16 13:34 100 MG Hydralazine HCl (Apresoline Tab) 50 mg TID PO 11/16/16 21:00 12/16/16 20:59 11/20/16 13:35 50 MG Labetalol HCl (Normodyne Tab) 200 mg BID PO 11/16/16 21:00 12/16/16 20:59 11/19/16 21:14 200 MG Metoclopramide HCl (Reglan Tab) 10 mg AC PO 11/17/16 08:00 12/17/16 07:59 11/20/16 07:32 10 MG Pantoprazole Sodium (Protonix Tab) 40 mg BID PO 11/16/16 21:00 12/16/16 20:59 11/20/16 07:33 40 MG Sertraline HCl (Zoloft Tab) 50 mg QAM PO 11/17/16 09:00 12/17/16 08:59 11/20/16 07:32 50 MG Sevelamer HCl (Renagel Tab) 3,200 mg TIDM PO 11/16/16 17:45 12/16/16 17:59 11/20/16 07:32 3,200 MG Trazodone HCl (Desyrel Tab) 50 mg HS PO 11/16/16 21:00 12/16/16 20:59 11/19/16 21:13 50 MG Clonidine HCl (Catapres Tab) 0.4 mg TID PO 11/16/16 21:00 12/16/16 20:59 11/20/16 13:34 0.4 MG Miscellaneous Information (Order Awaiting Action) 1 ea QS N/A 11/17/16 00:00 12/17/16 00:00 Miscellaneous Information 1 ea 1 ea QS N/A 11/17/16 00:00 12/17/16 00:00 11/20/16 15:32 1 EA Cefazolin Sodium/ Dextrose (Ancef Iv/D5 50ml) 52.5 ml @ 105 mls/hr DAILY@1400 IV 11/18/16 14:00 11/28/16 13:59 11/20/16 13:34 105 MLS/HR Clonidine HCl ([id number]-4 0.3mg/24hr Patch) 1 patch Tu@0000 TD 11/19/16 00:00 12/19/16 00:00 11/19/16 01:03 1 PATCH Miscellaneous (Remove Clonidine Patch) 1 ea Mo@2359 N/A 11/25/16 23:59 12/25/16 23:58 Hydromorphone HCl (Dilaudid Inj) 1 mg Q4H PRN IV 11/19/16 16:30 12/03/16 16:29 11/20/16 13:46 1 MG Oxycodone/ Acetaminophen (Percocet 7.5-325MG Tab) 1 tab Q4H PRN PO 11/19/16 13:45 12/03/16 13:44 11/20/16 07:31 1 TAB Epoetin Elkin (Procrit Inj) 10,000 units TODAY@0900 IV. 11/20/16 09:00 11/20/16 18:00
[2016-11-21] MEDS: CHECK CLONIDINE PATCH PLACEMENT SCH ×2 (00:10→07:50)
[2016-11-21] MEDS: HYDROmorphone INJ 1 MG/ML SYR IV PRN ×2 (02:03→07:47)
[2016-11-21] MEDS: OXYCODONE/ACETAMINOPHEN 7.5-325 TAB PO PRN (06:20)
[2016-11-21] MEDS: CLONIDINE HCL 0.1 MG TAB PO SCH (07:47)
[2016-11-21] MEDS: ASPIRIN 81 MG ECTAB PO SCH (07:48)
[2016-11-21] MEDS: LABETALOL HCL 200 MG TAB PO SCH (07:48)
[2016-11-21] MEDS: PANTOprazole SOD 40 MG TAB PO SCH (07:48)
[2016-11-21] MEDS: AMLODIPINE BESYLATE 5 MG TAB PO SCH (07:48)
[2016-11-21] MEDS: CARVEDILOL 25 MG TAB PO SCH (07:48)
[2016-11-21] MEDS: CHOLECALCIFEROL 1000 INTER.UNIT TAB PO SCH (07:49)
[2016-11-21] MEDS: GABAPENTIN 100 MG CAP PO SCH (07:49)
[2016-11-21] MEDS: METOCLOPRAMIDE HCL 10 MG TAB PO SCH ×2 (07:49→11:57)
[2016-11-21] MEDS: SEVELAMER HYDROCH 800 MG TAB PO SCH ×2 (07:49→11:57)
[2016-11-21] MEDS: SERTRALINE HCL 50 MG TAB PO SCH (07:49)
[2016-11-21] MEDS: HEPARIN SOD 5000 UNIT/0.5 ML CARP SQ SCH (07:49)
[2016-11-21 08:09] VITALS: BP 110/82; PULSE 65; TEMP 36.6; O2SAT 95
[2016-11-21] MEDS ORDERED: KFZAV1 IV (09:06)
[2016-11-21] MEDS ORDERED: OXYC7.5T65 PO (10:52)
--- NOTE | 2016-11-21 10:59 | Discharge Instructions ---
Discharge Instructions Date of Service November 21, 2016. Admission Reason for Admission: Arteriovenous Fistula Infection Discharge Discharge Diagnosis / Problem: Cellulitis, ESRD on hemodialysis Discharge Goals Goal(s): Decrease discomfort, Therapeutic intervention Activity Recommendations Activity Limitations: resume your previous activity . Instructions / Follow-Up Instructions / Follow-Up Please take all medications as instructed. You will be given Ancef 2 grams IV after each hemodialysis session M/W/. This will start tomorrow. Please ensure that arrangements are made for you to receive this medication if you miss you dialysis session. This will last for total 3 weeks unless otherwise specified by Infectious Disease. Please ensure a referral is made by your PCP for them ([facility]) and you have a follow-up within this 3 week time period. They may need to adjust the antibiotics based on your response to the medication. You have been scheduled with Dr. Chen (PCP) for 11/25 @ 1243. Please bring all paperwork with you from this hospitalization. It was a pleasure taking care of you! Call if you have any questions or problems. You can reach a [facility] hospitalist on duty at [facility] 24 hours a day by calling [phone]. Take care of yourself. Rut Christensen DO [facility] Hospitalist Current Hospital Diet Patient's current hospital diet: Renal Diet Discharge Diet Recommended Diet: Renal Diet Procedures Procedures Performed: Hemodialysis Pending Studies Studies pending at discharge: no Medical Emergencies . Who to Call and When: Medical Emergencies: If at any time you feel your situation is an emergency, please call 911 immediately. . Non-Emergent Contact Non-Emergency issues call your: Primary Care Provider . . "Provider Documentation" section prepared by Rut Christensen. . VTE Core Measure Inpt VTE Proph given/why not?: Unfractionated heparin SQ [place] Drug Monitoring Program Search Results: patient reviewed within database, no issues identified
[2016-11-21 11:58] VITALS: BP 110/82; PULSE 65; TEMP 36.6; O2SAT 95
--- NOTE | 2016-11-29 08:49 | Discharge Summary ---
Discharge Summary Date of Service November 21, 2016. Discharge Summary Admission Date: Nov 16, 2016 at 15:04 Discharge Date: November 21, 2016 Discharge Disposition: Home Principal Diagnosis: MSSA cellulitis of AVF surgical site-LUE Anemia of chronic disease Hyperkalemia-resolved ESRD on hemodialysis CAD s/p stent Depression HTN Procedures: Hemodialysis Vaccinations: None. Consultations: Nephrology Pending Studies/Follow-Up: see instructions below Medication Reconciliation New Medications: Cefazolin Sod (Cefazolin Sodium) 1 Gm Inj 2 GM IV MWF for 9 Days, #9 GM To be administered MWF post-hemodialysis x 3 weeks. Changed Medications: Oxycodone/Acetaminophen 7.5MG/325MG (Percocet 7.5MG/325MG) Tab 1 TAB PO Q6H PRN for Pain for 10 Days, #10 TAB (Changed from: Oxycodone/ Acetaminophen 5MG/325MG (Percocet 5MG/325MG) Tab 2 Tablets PO Q4H PRN Pain #30 TAB) Do not exceed more than 3000mg for Tylenol (acetaminophen) in 24 horus from all sources. Continued Medications: Alprazolam (Xanax) 0.5 Mg Tab 0.5 MG PO UD BEFORE DIALYSIS Amitriptyline HCl (Amitriptyline HCl) 25 Mg Tab 25 MG PO HS Amlodipine (Norvasc) 10 Mg Tab 10 MG PO QAM Aspirin (Aspirin Ec) 81 Mg Tab 81 MG PO QAM Calcium Carbonate (Tums) 500 Mg Chew 500 MG PO DAILY PRN for heartburn Carvedilol (Carvedilol) 25 Mg Tab 25 MG PO BID, TAB Cholecalciferol (Vitamin D3) 1,000 Unit Tab 3000 UNITS PO DAILY for 30 Days Cinacalcet (Sensipar) 30 Mg Tab 30 MG PO QPM, TAB WITH SUPPER Clonidine Hcl (Catapres) 0.2 Mg Tab 0.4 MG PO TID Clonidine Hcl (Clonidine Hcl) 0.3 Mg/24 Hr Dis 1 PATCH EXT WK PATCH IS CHANGED ON SUNDAYS Gabapentin (Gabapentin) 100 Mg Cap 100 MG PO TID Hydralazine HCl (Hydralazine HCl) 50 Mg Tab 50 MG PO TID, TAB Labetalol HCl (Labetalol HCl) 200 Mg Tab 200 MG PO BID Metoclopramide (Reglan) 10 Mg Tab 10 MG PO AC Pantoprazole (Protonix) 40 Mg Tab 40 MG PO BID Sertraline (Zoloft) 50 Mg Tab 50 MG PO QAM, TAB Sevelamer Hydroch (Renagel) 800 Mg Tab 3200 MG PO TIDM Trazodone Hcl (Trazodone) 50 Mg Tab 50 MG PO HS, TAB Discontinued Medications: Amoxicillin & Pot Clavulanate (Augmentin 875-125 mg) 1 Tab Tab 1 TAB PO BID for 7 Days, #14 STARTED 11/14/16 Admission Information HPI (per Admitting provider): 36 YO male followed by Dr. Fanny hCen for Internal Medicine and Dr. Restrepo for Nephrology. History of chronic kidney disease, s/p failed transplant. Other medical problems as noted below. Received hemodialysis on via dialysis catheter. A-V fistula performed on 10/29/16. Develop some erythema around the surgical wound and started on amoxicillin / clavulanic acid. Worsening pain and swelling of LUE; now has purulent drainage from the wound. No fever, chills, sweats. Pain is severe- 9/10; Percocet doesn't help. . Physical Exam (per Admitting): General Appearance: WD/WN, + mild distress Head: normocephalic, atraumatic Eyes: normal inspection, PERRL, EOMI, sclerae normal, + pertinent finding ( conjunctivae pink) ENT: normal ENT inspection, hearing grossly normal, pharynx normal Neck: supple, no adenopathy, thyroid normal, no JVD, trachea midline Respiratory/Chest: lungs clear, no respiratory distress, no accessory muscle use, + pertinent finding (dialysis cather with exit site inferior to left clavicle) Cardiovascular: regular rate, rhythm, no edema, no gallop, no JVD, no murmur , normal peripheral pulses Abdomen/GI: normal bowel sounds, non tender, soft, no organomegaly, no pulsatile mass Extremities/Musculoskelatal: normal inspection, no calf tenderness, normal capillary refill, no pedal edema, + pertinent finding (incision LUE, stapled, purulent drainage, surrounding erythema and tenderness) Neurologic/Psych: optician apprentice dispensing II-XII nml as tested (PERRL, EOMI, no dysathria, no facial palsy), no motor/sensory deficits (motor strength grossly intact), alert , normal mood/affect, oriented x 3 Skin: normal color, warm/dry, no rash Lymphatic: no adenopathy (cervical) Hospital Course This is a 36 year old male with PMH of glomerulonephritis with failed kidney transplant, now ESRD on HD, CAD, HTN, depression/anxiety presents with infected left upper extremity AV fistula Wound Infection of Left Upper Extremity 11/20 -ID was consulted and recommended IV Ancef for min 3 weeks to be taken as higher amount in HD TIW -likely dc in am and send to ID as outpatient for follow-up to ensure healing is occurring and adjust regimen as needed. 11/19 currently on Ancef MSSA on cultures - pansensitive can switch to Keflex decrease Dilaudid dose and increase Percocet dose possible d/c home tomorrow (11/20) 11/18 MSSA - chau-sensitive switched antibiotics to Ancef for pain: Dilaudid increased to 3mg q4PRN, intermittent with Percocet will try to wean these pain medications in the next few days 11/17 recent AV fistula transposition on November 08 there is erythema, swelling, tenderness and warmth to touch no white count, no lactic acidosis, hemodynamically stable wound culture + for Staph Aureus, further speciation and sensitivities pending for now, will continue IV Vanco and IV Zosyn appreciate vascular surgery input ESRD on HD receives dialysis on including today nephrology consultation appreciated HTN controlled, cont home meds CAD s/p stent no chest pain continue b-parul, aspirin Depression/Anxiety continue home medications Acute hyperkalemia-treated this morning K 6.5 with IV insulin and glucose along with CaGluc. Then patient went to HD. Repeat K this afternoon was 4.0. On day of discharge he was afebrile and hemodynamically stable. Physical exam was remarkable for large incisional wound with improved erythema over surgical AVF site and a 3/6 ORION across precordium. He was tolerating PO and was ambulatory. Pain was manageable. He was sent home with plans for continued Ancef after dialysis and close follow-up with ID and PCP. Total time spent on discharge = 60 minutes This includes examination of the patient, discharge planning, medication reconciliation, and communication with other providers. Discharge Instructions Discharge Instructions Date of Service November 21, 2016. Admission Reason for Admission: Arteriovenous Fistula Infection Discharge Discharge Diagnosis / Problem: Cellulitis, ESRD on hemodialysis Discharge Goals Goal(s): Decrease discomfort, Therapeutic intervention Activity Recommendations Activity Limitations: resume your previous activity . Instructions / Follow-Up Instructions / Follow-Up Please take all medications as instructed. You will be given Ancef 2 grams IV after each hemodialysis session M//. This will start tomorrow. Please ensure that arrangements are made for you to receive this medication if you miss you dialysis session. This will last for total 3 weeks unless otherwise specified by Infectious Disease. Please ensure a referral is made by your PCP for them ([facility]) and you have a follow-up within this 3 week time period. They may need to adjust the antibiotics based on your response to the medication. You have been scheduled with Dr. Chen (PCP) for 11/25 @ 2392. Please bring all paperwork with you from this hospitalization. It was a pleasure taking care of you! Call if you have any questions or problems. You can reach a [facility] hospitalist on duty at [facility] 24 hours a day by calling [phone]. Take care of yourself. Rut Christnesen, DO [facility] Additional Copies To Fanny Chen M.D.; Sarahi Restrepo DO
== END 2016-11-21 13:30 | disposition home or self-care (01) | DRG 314 ==
LOC: ENRESERVTM → ENRESERVDT → C.EDB 11:48 → C.MSW 15:04
PROVIDERS: ADMIT Hospitalist; ATTEND Hospitalist
DX: T82.7XXA Infection and inflammatory reaction due to other cardiac and vascular devices, implants and grafts, initial encounter (principal); N18.6 End stage renal disease; B95.61 Methicillin susceptible Staphylococcus aureus infection as the cause of diseases classified elsewhere; D63.8 Anemia in other chronic diseases classified elsewhere; E87.5 Hyperkalemia; Z99.2 Dependence on renal dialysis; I25.10 Atherosclerotic heart disease of native coronary artery without angina pectoris; F32.9 Major depressive disorder, single episode, unspecified; F41.9 Anxiety disorder, unspecified; Z79.82 Long term (current) use of aspirin; Y83.8 Other surgical procedures as the cause of abnormal reaction of the patient, or of later complication, without mention of misadventure at the time of the procedure

== ENCOUNTER 2017-03-06 11:07 | Day surgery (SDC) | payer OTHER ==
[~2017-03-06] VITALS: Ht 167.6 cm; Wt 66.0 kg
--- NOTE | 2017-03-06 08:54 | History and Physical ---
History & Physical Date of Service Mar 06, 2017. History & Physical CC: End stage renal disease, functioning fistula HPI: Mr. Do states that he received his first kidney transplant at the age of 3. He said it functioned for over 20 years before it failed, then he went on hemodialysis. He states that he then underwent another renal transplant, and that one lasted only two years before failing on him. He states that he previously had two fistulas created in his left arm, the first one at his wrist , the second one in his left upper arm cephalic vein. 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 He denies any other complaints at this time, including headaches, fevers, chills, dizziness, chest pain, shortness of breath, abdominal pain, nausea, vomiting, diarrhea, constipation, dysuria, hematuria, rest pain, claudication, nonhealing wounds or ulcers or other complaints. He does state that he is interested in continuous ambulatory peritoneal dialysis at home; however, he has not gone through the training for that as of yet. He had a left upper extremity basilic vein fistula created and which underwent transposition. The fistula is working well. He is admitted now for removal of his permcath ALLERGIES: MINOXIDIL AND TERAZOSIN. HOME MEDICATIONS: Reconciled in the chart and include the following; amitriptyline, Benicar, clonidine patch, Coreg, hydralazine, lisinopril, Norvasc , pantoprazole, Reglan, Sensipar, and vitamin D3. PAST MEDICAL HISTORY: Positive for hypertension, end-stage renal disease on hemodialysis, gastroesophageal reflux disease. PAST SURGICAL HISTORY: Positive for renal transplant in 1984, renal transplant in 2012, creation of an arteriovenous fistula x2 in the left arm and insertion of a tunneled dialysis catheter. SOCIAL HISTORY: Positive for past history of tobacco use. The patient states he quit approximately 1 month ago. FAMILY HISTORY: Noncontributory. REVIEW OF SYSTEMS: Negative for fatigue, fevers, sweats, weight loss, exercise intolerance, abnormal moles or rashes, vision changes or photophobia, ear pain, sinus problems or sore throat, cough, shortness of breath, hemoptysis or wheezing, chest pain, palpitations, edema or syncope, abdominal pain, nausea, vomiting, diarrhea, constipation, dysuria, hematuria, muscle weakness, headaches , dizziness, numbness or seizures. PHYSICAL EXAMINATION: His vital signs are as follows; blood pressure 156/92 with a heart rate of 81, oxygen 98% on room air. Constitutional: In general, patient is a mildly chronically ill-appearing middle-aged male in no acute distress. He ambulates without assistance and is active, alert and oriented x4 with normal recent and remote memory. His head is normocephalic, atraumatic. Eyes are EOMI. His ENMT exam demonstrates no hearing loss, rhinorrhea or pharyngeal erythema. His neck is supple, nontender with midline trachea without masses or crepitus. Lung exam demonstrates no dyspnea. They are clear to auscultation bilaterally, although somewhat decreased throughout. His cardiovascular exam demonstrates a nondisplaced apical impulse with a regular rate and rhythm without murmurs, lifts, heaves, thrills or gallops. Peripheral pulses are full and equal in all extremities unless otherwise noted, specifically they are normal in his carotid, brachial, radial and femoral pulses. His bilateral lower extremities distal pulses are +2. He has brisk capillary refill and no sign of distal ischemia. The patient demonstrates no bruits in his carotid, abdominal or femoral area. His abdomen is soft, nontender with normoactive bowel sounds in all 4 quadrants without guarding or rebound. There is no flank or CVA tenderness. His musculoskeletal exam demonstrates normal tone and strength for age. His bilateral upper extremities demonstrate no cyanosis, edema, clubbing, varicosities or ulcers. His bilateral lower extremities demonstrate no cyanosis, edema, clubbing, varicosities or ulcers. Patient's left arm does demonstrate surgical incisions on his wrist as well as an antecubital surgical incision and a [id number] upper arm surgical incision as well. 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 Neurologic: Patient is grossly intact cranial nerves and grossly intact sensation. ASSESSMENT AND PLAN: End-stage renal disease on hemodialysis. Plan: Patient is admitted for removal of his permcath. I have discussed the risks options and benefits of the procedure with the patient. The patient understands the risks options and benefits and agrees to the procedure.
[~2017-03-06 11:07] MED LIST changes: -AMT10 PO; +AMT25 PO; +APR50 PO; +CEFAZOLIN 1000MG/55 ML D5W IV SCH; +CRG25 PO; +D5W AND 1/4NSS 1,000 ML IV SCH; -HYDR-4717 PO; +KFZAV1 IV; -OXYC-57 PO
--- NOTE | 2017-03-06 11:48 | Procedure Note ---
Pre-Mod Sedation Assessment General Date of Moderate Sedation: Mar 06, 2017. Pre-Sedation Airway Assessment Smoking Status: Current Every Day Smoker Mallampati Classification: Class I ASA Classification: Class III Notes The planned sedation has been discussed with the patient and consent obtained. I have identified the patient, determined the appropriateness of sedation and have assessed the patient immediately prior to the procedure. All medicine(s) and interventions are by my order.
[2017-03-06 11:54] VITALS: BP 111/82; PULSE 73; TEMP 36.6; O2SAT 95; Ht 167.6 cm; Wt 66.0 kg
[2017-03-06 14:36] VITALS: BP 111/82; PULSE 73; TEMP 36.6; O2SAT 95
[2017-03-06] MEDS ORDERED: MIDAZOLAM HCL 1 MG/ML 2ML VIAL ONE (14:38)
[2017-03-06] MEDS ORDERED: FENTANYL CITRATE INJ 50 MCG/1 ML 2 ML VIAL ONE (14:38)
--- NOTE | 2017-03-06 14:49 | [facility] Post Operative Brief Note ---
Immediate Operative Summary Operative Date Mar 06, 2017. Pre-Operative Diagnosis Functioning fisutla Post-Operative Diagnosis Same Procedure(s) Performed Removal of permcath Surgeon Carla Pediatric Occupational Therapist Surgeon(s) Karlo Cho MD Estimated Blood Loss 3 Findings catheter and cuff removed Specimens permcath Anesthesia Local Complication(s) None Disposition
--- NOTE | 2017-03-06 14:50 | Discharge Instructions ---
Discharge Instructions Date of Service Mar 06, 2017. Visit Reason for Visit: End Stage Renal Disease Discharge Discharge Diagnosis / Problem: Functioning fistula Discharge Goals Goal(s): Therapeutic intervention Activity Recommendations Activity Limitations: resume your previous activity Anesthesia . Post Anesthesia Instructions: If you have had General Anesthesia or IV Sedation: * Do not drive today. * Resume driving when surgeon permits. * Do not make important decisions or sign legal documents today. * Call surgeon for: 1. Temperature elevations greater than 101 degrees F. 2. Uncontrollable pain. 3. Excessive bleeding. 4. Persistent nausea and vomiting. 5. Medication intolerance (nausea, vomiting or rash). * For nausea and vomiting use only clear liquids such as: tea, soda, bouillon until nausea subsides, then gradually increase diet as tolerated. * If you have any concerns or questions, call your surgeon's office. If physician is unavailable and it is an emergency, call 911 or go to the nearest emergency room. . Instructions / Follow-Up Instructions / Follow-Up Call [phone] with any questions or concerns. SPECIAL CARE INSTRUCTIONS: Medications: * Continue to take your medications as directed. If you have been given a prescription for Plavix, please fill it immediately and take as directed. Incision Care: * Your puncture site may have some bruising and minor swelling for about one week. * You will have a small dressing covering your puncture site. You may remove the dressing after 24 hours and shower. You may let the warm soapy water run over it, but be sure to dry the puncture site well and keep it dry. * DO NOT IMMERSE THE INCISION IN A TUB/POOL/etc. UNTIL HEALED. * Puncture sites should be kept covered with a band-aid until it begins to heal. Restrictions: * Depending on whether you leg or arm was punctured to access the arteries, you will be required to lay flat, hold your arm still, or both, for about 4 hours after the procedure to prevent bleeding. * Limit your activity for the first 48 hours. You may walk and go up and down steps. Avoid excessive bending or movement at the puncture site. Possible Complications: * Excessive Swelling - after blood flow is improved you may notice increased swelling in the lower legs. This is a normal response. This usually depends on the amount of blockages in the leg, how long they have been there prior to your procedure and how much blood flow was restored. Elevating your legs will help to improve this. Please notify our office ([phone] ) if the swelling does not go away after lying in bed overnight. * Infection/Drainage/Bleeding - Drainage or bleeding from the puncture site should be minimal. If you have excessive bleeding or drainage, call our office ([phone]) right away. * Pain - You may experience some mild pain or soreness at your puncture site. If your pain does not improve, please contact our office ([phone]). Call your doctor and seek emergent treatment if you develop: * Temperature above 101 degrees * Any fever or chills * Any redness or purulent drainage from the puncture site * Any new dusky/blue colored toes or feet with coolness or sharp or aching pain. SKIN IRRITATION: * You may experience some redness and/or swelling in the area where radiation was administered. If any skin irritation occurs, please contact your family physician. FOLLOW UP VISIT: Keep any scheduled doctor appointments. Diet Recommendations Recommended Home Diet: resume previous diet Procedures Procedures Performed: Removal of permcath Pending Studies Studies pending at discharge: no Medical Emergencies . Who to Call and When: Medical Emergencies: If at any time you feel your situation is an emergency, please call 911 immediately. . Non-Emergent Contact Non-Emergency issues call your: Surgeon . . "Provider Documentation" section prepared by Ziggy Aguirre. .
[2017-03-06] MEDS ORDERED: FENTANYL CITRATE INJ 50 MCG/1 ML 2 ML VIAL IV ONE (14:51)
[2017-03-06] MEDS ORDERED: LIDOCAINE HCL 1% 20 ML VIAL INJ ONE (14:52)
[2017-03-06] MEDS ORDERED: ARISTA ABSORBABLE HEMOSTAT 3GM TOP ONE (14:52)
[2017-03-06 15:05] VITALS: BP 127/81; PULSE 65; TEMP 36.6; O2SAT 95
--- NOTE | 2017-03-06 15:23 | [facility] Operative Report ---
Operative Report Operative Date Mar 06, 2017. Pre-Operative Diagnosis functioning fistula Post-Operative Diagnosis same Procedure(s) Performed Removal Of Perm Catheter Surgeon Dr. Aguirre Digital Production Operator Surgeon(s) Karlo Cho Fellow Estimated Blood Loss 3 Findings permcath and tip removed in one peace. Specimens A. explanted perm catheter Anesthesia Local Complication(s) None Disposition Recovery Room / PACU Indications pt now has a functional AVF and no longer needs a permcath. Description of Procedure The patient was taken to the angio suite and placed in the supine position. The right side of the neck, chest wall and catheter were prepped and draped in a sterile manner. Local anesthesia was then accomplished. Using sharp and blunt dissection, the cuff of the permcath was freed up from the surrounding fibrous tissue. The permcath and cuff were completely removed. Pressure was then applied and adequate hemostasis was obtained. A sterile dressing was then applied. The patient left the angio suite in good condition and tolerated the procedure well. I attest to the content of the Intraoperative Record and any orders documented therein. Any exceptions are noted below. I, Dr. Aguirre was present and scrubbed for the entire procedure. I attest to the content of the Intraoperative Record and any orders documented therein. Any exceptions are noted below.
[2017-03-06 15:35] VITALS: BP 128/87; PULSE 69; TEMP 36.6; O2SAT 96
== END 2017-03-06 15:40 | disposition home or self-care (01) ==
LOC: C.ACU 11:07
PROVIDERS: ATTEND Surgery Vascular Surgery
DX: Z95.828 Presence of other vascular implants and grafts (principal); I12.0 Hypertensive chronic kidney disease with stage 5 chronic kidney disease or end stage renal disease; N18.6 End stage renal disease; K21.9 Gastro-esophageal reflux disease without esophagitis; Z99.2 Dependence on renal dialysis; Z94.0 Kidney transplant status; Z87.891 Personal history of nicotine dependence

== ENCOUNTER 2017-03-19 10:18 | Emergency (ER) | payer OTHER ==
[~2017-03-19] VITALS: Ht 167.6 cm; Wt 68.0 kg
[~2017-03-19 10:18] MED LIST changes: -AMLO-114 PO; -CEFAZOLIN 1000MG/55 ML D5W IV SCH; -D5W AND 1/4NSS 1,000 ML IV SCH; -KFZAV1 IV
[2017-03-19 10:23] VITALS: TEMP 36.7; Ht 167.6 cm; Wt 68.0 kg
[2017-03-19] MEDS ORDERED: ONDANSETRON INJ 2 MG/ML 2 ML VIAL IV STA (11:02)
[2017-03-19] MEDS ORDERED: SODIUM CHLORIDE 0.9% 1000ML 1,000 ML IV STA (11:02)
[2017-03-19] MEDS ORDERED: MoRPHine SULFATE 10 MG/ML CARP/VIAL IV STA (11:02)
[2017-03-19 12:45] LABS: BASO % 0.2 %; BASO ABS # 0.01 K/uL (0-0.2); COMPLETE YES; EOS % 0.6 %; HEMATOCRIT 34.8 % (42-52); IG% 0.3 %; LYMPH % 12.7 %; MEAN CELL VOLUME 91.1 fL (80-100); MEAN CORPUSCULAR HEMOGLOBIN 30.1 pg (25-34); MEAN PLATELET VOLUME 11.6 fL (7.4-10.4); MONO % 6.2 %; PLATELET COUNT 106 K/uL (130-400); RED BLOOD COUNT 3.82 M/uL (4.7-6.1); WHITE BLOOD COUNT 6.31 K/uL (4.8-10.8)
[2017-03-19 12:56] LABS: BUN/CREATININE RATIO 3.8 (10-20); CALCIUM 8.8 mg/dl (8.5-10.1); CREATININE 6.9 mg/dl (0.60-1.40)
[2017-03-19] MEDS ORDERED: OPTIRAY 320 IV PRN (13:45)
--- NOTE | 2017-03-19 14:43 | DIAGNOSTIC IMAGING REPORT ---
CT ABD/PELVIS IV CONTRAST ONLY CLINICAL HISTORY: bilateral lower abdominal pain COMPARISON STUDY: 07/12/2016 TECHNIQUE: Following the IV administration of 94 mL of Optiray-320, CT scan of the abdomen and pelvis was performed from the lung bases to the proximal femurs. Images are reviewed in the axial, sagittal, and coronal planes. IV contrast was administered without complication. A dose lowering technique was utilized adhering to the principles of ALARA. CT DOSE: 416.84 mGycm FINDINGS: Lower chest: There are deep plan subpleural right lower lobe airspace opacities. Liver: The contrast-enhanced liver is normal in size, contour, and attenuation. There is no intrahepatic biliary ductal dilatation. The hepatic veins and portal veins are patent. Gallbladder: The gallbladder appears normal. There is trace fluid inferior to the gallbladder. Spleen: Normal in size and attenuation. Pancreas: Unremarkable. Adrenal glands: Unremarkable. Kidneys: The [place] kidneys are markedly atrophic. There is a left lower quadrant transplant kidney. There is no hydronephrosis. There are persistent calcifications in the right iliac fossa, likely secondary to a prior right iliac fossa renal transplant. The findings remain stable. Bowel: There are no transition zones indicate bowel obstruction. There is no acute diverticulitis. The appendix appears normal. There is mild left colonic bowel wall thickening. This may indicate a nonspecific colitis. Peritoneum: There is minimal intraperitoneal fluid. No free air is visualized. Vasculature: The abdominal aorta is normal in course and caliber. Adenopathy: None. Pelvic viscera: The bladder, and pelvic viscera are unremarkable. Skeletal structures: No destructive osseous lesions are seen. IMPRESSION: 1. No evidence of bowel obstruction. No evidence of free air 2. Normal appendix 3. Mild left colonic bowel wall thickening indicative of a mild nonspecific colitis 4. Atrophic [place] kidneys. Left iliac fossa transplant kidney 5. Minimal intraperitoneal fluid. 6. Subpleural dependent right lower lobe airspace opacities, possibly atelectatic Electronically signed by: Luis Daniel Perkins M.D. 03/19/2017 2:42 PM Dictated Date/Time: 03/19/2017 2:36 PM
[2017-03-19 14:50] VITALS: BP 125/90; PULSE 79; O2SAT 96
--- NOTE | 2017-03-20 05:58 | EMERGENCY ROOM VISIT NOTE ---
ED Visit Note First contact with patient: 10:29 Chief Complaint: My lower abdomen hurts. History of Present Illness: Mr. Do is a 36 year-old white male who ambulates into the ED complaining of bilateral lower quadrant abdominal pain. Historically patient reports chronic kidney disease stage IV, dialysis and failed kidney transplant 2 Patient reports a acute onset of bilateral lower quadrant abdominal pain that started approximately 12 hours ago. Since that time the pain has been constant but has waxed and waned in intensity. The pain is currently described as sharp and stabbing. The pain is radiating in her mid only into the lower lumbar back bilaterally. He has not identified any aggravating or alleviating factors related to the pain. He has not taken any medications for pain prior to arrival at the hospital. Associated with his pain he reports she's been nauseated and has had one episode of vomiting but multiple episodes of dry heaving and he has noted 2 small episodes of light brown watery stools. Patient denies fevers, chills, sweats, skin eruptions, skin color changes, upper respiratory tract symptoms, shortness of breath, chest pain, constipation , rectal bleeding, black/tarry stools, urinary symptoms, hematuria. Review of Systems: As noted above in history of present illness. All body systems were reviewed and found to be negative as noted above. Past Medical History: As previously noted, coronary artery disease, thrombocytopenia, hypertension, emphysema, anxiety and depression, status post AV fistula implantation and coronary artery stent placement.. Current Medications: Medications Dose Route/Sig Max Daily Dose Days Date Category Dose Instructions Carvedilol 25 Mg Tab 25 Mg PO BID 11/16/16 Reported Amitriptyline HCl 25 Mg Tab 25 Mg PO HS 11/16/16 Reported Hydralazine HCl 50 Mg Tab 50 Mg PO TID 11/16/16 Reported Gabapentin 100 Mg Cap 100 Mg PO TID 09/06/16 Reported Trazodone (Trazodone HCl) 50 Mg Tab 50 Mg PO HS 07/12/16 Reported Labetalol HCl 200 Mg Tab 200 Mg PO BID 06/12/16 Reported Aspirin Ec (Aspirin) 81 Mg Tab 81 Mg PO QAM 06/04/16 Reported Tums (Calcium Carbonate) 500 Mg Chew 500 Mg PO DAILY PRN 03/08/16 Reported Vitamin D3 (Cholecalciferol) 1,000 Unit Tab 3,000 Units PO DAILY 30 03/08/16 Reported Zoloft (Sertraline HCl) 50 Mg Tab 50 Mg PO QAM 03/05/16 Reported Sensipar (Cinacalcet) 30 Mg Tab 30 Mg PO QPM 03/05/16 Reported WITH SUPPER Protonix (Pantoprazole Sodium) 40 Mg Tab 40 Mg PO BID 01/27/16 Reported Clonidine Hcl 0.3 Mg/24 Hr Dis 1 Patch EXT WK 01/24/16 Reported PATCH IS CHANGED ON SUNDAYS Reglan (Metoclopramide HCl) 10 Mg Tab 10 Mg PO AC 10/06/15 Reported Xanax (Alprazolam) 0.5 Mg Tab 0.5 Mg PO UD 10/06/15 Reported BEFORE DIALYSIS Renagel (Sevelamer HCl) 800 Mg Tab 3,200 Mg PO TIDM 10/06/15 Reported Catapres (Clonidine Hcl) 0.2 Mg Tab 0.4 Mg PO TID 10/06/15 Reported Allergies to Medications: Minoxidil, prednisone, terazosin. Social History: Patient is not currently employed; he feels safe in his home environment; he denies tobacco and alcohol use. Physical Examination: Vital Signs: Date Time Temp Pulse Resp B/P (MAP) Pulse Ox O2 Delivery O2 Flow Rate FiO2 03/19/17 14:50 79 16 125/90 96 03/19/17 12:48 16 03/19/17 12:33 16 03/19/17 12:18 80 15 132/70 03/19/17 12:03 82 14 03/19/17 11:48 77 13 03/19/17 11:33 83 12 03/19/17 11:31 146/97 03/19/17 11:26 188/115 03/19/17 11:03 69 13 03/19/17 10:48 76 15 03/19/17 10:33 77 17 03/19/17 10:27 70 03/19/17 10:23 36.7 68 18 129/92 98 Room Air 03/19/17 10:20 129/92 GENERAL: 36-year-old male in mild to moderate distress due to pain, chronically ill-appearing, afebrile and hemodynamically stable. NEUROLOGICAL: Awake, alert and oriented to person, place and time. Answering questions appropriately and following commands. Normal gait. Good hand eye coordination. SKIN: Warm, dry and pink. No soft tissue eruptions or trauma noted. HEENT: Atraumatic and normocephalic. PERRLA. Sclera white and conjunctiva pink. Airway patent. Speech normal. No lymphadenopathy. Trachea midline. No jugular venous distention. BACK: No tenderness over the bony thoracic and lumbar spine. No paraspinous muscle tenderness or spasm. No CVA tenderness. THORAX: Lungs sounds are clear to auscultation and equal bilaterally with symmetrical chest wall. No wheezing, rales or rhonchi. HEART: Regular rate and rhythm. No gallops, rubs or murmurs are appreciated. ABDOMEN: Flat and soft with diffuse tenderness throughout the lower abdomen. Decreased bowel sounds in all quadrants. No guarding, rigidity or organomegaly. EXTREMITIES: Moves all extremities well on command and with purpose. All distal neurovascular statuses are intact and equal bilaterally. ED Course: Patient is assessed as noted above. Patient's medication list was reviewed. Laboratory Testing: Test 03/19/17 11:48 Range/Units White Blood Count 6.31 4.8-10.8 K/uL Red Blood Count 3.82 4.7-6.1 M/uL Hemoglobin 11.5 14.0-18.0 g/dL Hematocrit 34.8 42-52 % Mean Corpuscular Volume 91.1 80-100 fL Mean Corpuscular Hemoglobin 30.1 25-34 pg Mean Corpuscular Hemoglobin Concent 33.0 32-36 g/dl Platelet Count 106 130-400 K/uL Mean Platelet Volume 11.6 7.4-10.4 fL Neutrophils (%) (Auto) 80.0 % Lymphocytes (%) (Auto) 12.7 % Monocytes (%) (Auto) 6.2 % Eosinophils (%) (Auto) 0.6 % Basophils (%) (Auto) 0.2 % Neutrophils # (Auto) 5.05 1.4-6.5 K/uL Lymphocytes # (Auto) 0.80 1.2-3.4 K/uL Monocytes # (Auto) 0.39 0.11-0.59 K/uL Eosinophils # (Auto) 0.04 0-0.5 K/uL Basophils # (Auto) 0.01 0-0.2 K/uL RDW Standard Deviation 50.0 36.4-46.3 fL RDW Coefficient of Variation 15.0 11.5-14.5 % Immature Granulocyte % (Auto) 0.3 % Immature Granulocyte # (Auto) 0.02 0.00-0.02 K/uL Sodium Level 134 136-145 mmol/L Potassium Level 4.0 3.5-5.1 mmol/L Chloride Level 97 98-107 mmol/L Carbon Dioxide Level 27 21-32 mmol/L Anion Gap 10.0 3-11 mmol/L Blood Urea Nitrogen 26 7-18 mg/dl Creatinine 6.90 0.60-1.40 mg/dl Est Creatinine Clear Calc Drug Dose 13.1 ml/min Estimated GFR () 10.7 Estimated GFR (Non- 9.2 BUN/Creatinine Ratio 3.8 10-20 Random Glucose 100 70-99 mg/dl Calcium Level 8.8 8.5-10.1 mg/dl Total Bilirubin 0.5 0.2-1 mg/dl Direct Bilirubin 0.1 0-0.2 mg/dl Aspartate Amino Transf (AST/SGOT) 21 15-37 U/L Alanine Aminotransferase (ALT/SGPT) 9 12-78 U/L Alkaline Phosphatase 113 45-117 U/L Total Protein 8.2 6.4-8.2 gm/dl Albumin 3.7 3.4-5.0 gm/dl Lipase 227 73-393 U/L Because of his kidney disease I did contact Dr. Butler, radiology, and asked for recommendations on CT evaluation and he recommended IV contrast only. Contrast Abdominal/Pelvic CT: Was reviewed by myself and read by the radiologist showing no evidence of bowel obstruction, free air. Normal- appearing appendix, mild left colonic bowel wall thickening indicating a possible mild nonspecific colitis, atrophic [place] kidneys with left iliac fossa transplant kidney, minimal intraperitoneal fluid and subpleural dependent right lower lobe airspace opacities. Patient was hydrated with normal saline and he received a total of 6 mg of morphine IV and 4 mg of Zofran IV. Patient was reassessed multiple times during his stay in the emergency department; just prior to going to radiology for CT he reviewed reported that he was pain-free and wanted to go home. After lengthy conversation he did accept his upcoming CT. Patient's case was reviewed with Dr. Chapin; we agreed on diagnostic approach, treatment, disposition and plan. Patient was educated about today's findings and instructed on his treatment plan ; he verbalized understanding and agreement with this plan. Clinical Impression: Bilateral lower abdominal pain. Nonspecific colitis. Decision-Making: Initially my differential diagnosis I considered bowel obstruction, appendicitis, constipation, diverticulitis and other causes. Disposition: Patient discharged home in stable condition; prior to departure he was reassessed and subjectively reported that he was pain and symptom-free. Plan: Patient was encouraged to continue his current medications as prescribed. Patient was encouraged to keep his upcoming dialysis appointment. Patient was encouraged use 650 mg of acetaminophen every 6 hours as needed for pain. Patient was encouraged to follow-up with his family physician for recheck in 3- 4 days. Patient was encouraged return ED for worsening/uncontrolled pain, uncontrolled nausea/vomiting, fevers, bloody stools or any new/concerning symptoms.
== END 2017-03-19 14:50 | disposition home or self-care (01) ==
LOC: EDBD 10:18 → C.EDA 10:19
DX: K52.9 Noninfective gastroenteritis and colitis, unspecified (principal); N18.4 Chronic kidney disease, stage 4 (severe); Z99.2 Dependence on renal dialysis; Z94.0 Kidney transplant status; I25.10 Atherosclerotic heart disease of native coronary artery without angina pectoris; I12.9 Hypertensive chronic kidney disease with stage 1 through stage 4 chronic kidney disease, or unspecified chronic kidney disease; J43.9 Emphysema, unspecified; Z95.5 Presence of coronary angioplasty implant and graft; F41.9 Anxiety disorder, unspecified; F32.9 Major depressive disorder, single episode, unspecified

== ENCOUNTER → 2017-07-07 | Day surgery (SDC) | payer OTHER ==
[~2017-07-07] VITALS: Ht 167.6 cm; Wt 66.0 kg
[2017-07-07] VITALS (17 sets, daily range): BP systolic 112–162; BP diastolic 59–88; PULSE 59–81; TEMP 36.5–36.9; O2SAT 95; Ht 167.6 cm; Wt 66.0 kg
[~2017-07-07] MED LIST changes: +BUPR150T7 PO; +CEFAZOLIN SOD 1000MG/5 ML IV PUSH IV ONE; +LABE100T23 PO
--- NOTE | 2017-07-07 06:20 | History and Physical ---
History & Physical Date of Service Jul 07, 2017. History & Physical CC: End stage renal disease, malfunctioning fistula HPI: Mr. Do states that he received his first kidney transplant at the age of 3. He said it functioned for over 20 years before it failed, then he went on hemodialysis. He states that he then underwent another renal transplant, and that one lasted only two years before failing on him. He states that he previously had two fistulas created in his left arm, the first one at his wrist , the second one in his left upper arm cephalic vein. 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 He denies any other complaints at this time, including headaches, fevers, chills, dizziness, chest pain, shortness of breath, abdominal pain, nausea, vomiting, diarrhea, constipation, dysuria, hematuria, rest pain, claudication, nonhealing wounds or ulcers or other complaints. He does state that he is interested in continuous ambulatory peritoneal dialysis at home; however, he has not gone through the training for that as of yet. He had a left upper extremity basilic vein fistula created and which underwent transposition. The fistula is not working well at this time. He is admitted now for a fistulogram with possible intervention. ALLERGIES: MINOXIDIL AND TERAZOSIN. HOME MEDICATIONS: Reconciled in the chart and include the following; amitriptyline, Benicar, clonidine patch, Coreg, hydralazine, lisinopril, Norvasc , pantoprazole, Reglan, Sensipar, and vitamin D3. PAST MEDICAL HISTORY: Positive for hypertension, end-stage renal disease on hemodialysis, gastroesophageal reflux disease. PAST SURGICAL HISTORY: Positive for renal transplant in 1984, renal transplant in 2012, creation of an arteriovenous fistula x2 in the left arm and insertion of a tunneled dialysis catheter. SOCIAL HISTORY: Positive for past history of tobacco use. The patient states he quit approximately 1 month ago. FAMILY HISTORY: Noncontributory. REVIEW OF SYSTEMS: Negative for fatigue, fevers, sweats, weight loss, exercise intolerance, abnormal moles or rashes, vision changes or photophobia, ear pain, sinus problems or sore throat, cough, shortness of breath, hemoptysis or wheezing, chest pain, palpitations, edema or syncope, abdominal pain, nausea, vomiting, diarrhea, constipation, dysuria, hematuria, muscle weakness, headaches , dizziness, numbness or seizures. PHYSICAL EXAMINATION: His vital signs are as follows; blood pressure 156/92 with a heart rate of 81, oxygen 98% on room air. Constitutional: In general, patient is a mildly chronically ill-appearing middle-aged male in no acute distress. He ambulates without assistance and is active, alert and oriented x4 with normal recent and remote memory. His head is normocephalic, atraumatic. Eyes are EOMI. His ENND exam demonstrates no hearing loss, rhinorrhea or pharyngeal erythema. His neck is supple, nontender with midline trachea without masses or crepitus. Lung exam demonstrates no dyspnea. They are clear to auscultation bilaterally, although somewhat decreased throughout. His cardiovascular exam demonstrates a nondisplaced apical impulse with a regular rate and rhythm without murmurs, lifts, heaves, thrills or gallops. Peripheral pulses are full and equal in all extremities unless otherwise noted, specifically they are normal in his carotid, brachial, radial and femoral pulses. His bilateral lower extremities distal pulses are +2. He has brisk capillary refill and no sign of distal ischemia. The patient demonstrates no bruits in his carotid, abdominal or femoral area. His abdomen is soft, nontender with normoactive bowel sounds in all 4 quadrants without guarding or rebound. There is no flank or CVA tenderness. His musculoskeletal exam demonstrates normal tone and strength for age. His bilateral upper extremities demonstrate no cyanosis, edema, clubbing, varicosities or ulcers. His bilateral lower extremities demonstrate no cyanosis, edema, clubbing, varicosities or ulcers. Patient's left arm does demonstrate surgical incisions on his wrist as well as an antecubital surgical incision and a [id number] upper arm surgical incision as well. 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 His new fistula has a good thrill present. Neurologic: Patient is grossly intact cranial nerves and grossly intact sensation. ASSESSMENT AND PLAN: End-stage renal disease on hemodialysis. Malfunctioning fistula Plan: Patient is admitted for a fistulogram with possible intervention. I have discussed the risks options and benefits of the procedure with the patient. The patient understands the risks options and benefits and agrees to the procedure.
[2017-07-08] VITALS (15 sets, daily range): BP systolic 124–154; BP diastolic 57–92; PULSE 63–85; TEMP 36.1
--- NOTE | 2017-07-29 08:58 | EDITING REQUIRED CODING QUERY ---
CANCELLED SURGERY Had two v numbers for the same day. It was under the wrong v numbered. Moved it to the right v number [email or web address] Please provide below the reason the surgery was cancelled on 07/07/17: REASON CANCELLED: Reason in note on chart [email or web address] Thank you for your assistance, Jeni Cisneros - [employer]
--- NOTE | 2017-08-01 12:31 | Progress Note ---
Progress Note Date of Service Aug 01, 2017. Progress Note Patient with a k+ of 6.3, hyperkalemia Will cancel surgery today and reschedule for tomorrow
== END | disposition home or self-care (01) ==
LOC: C.ACU 06:40
PROVIDERS: ATTEND Surgery Vascular Surgery
DX: T82.898A Other specified complication of vascular prosthetic devices, implants and grafts, initial encounter (principal); Y83.2 Surgical operation with anastomosis, bypass or graft as the cause of abnormal reaction of the patient, or of later complication, without mention of misadventure at the time of the procedure; E87.5 Hyperkalemia; Z53.09 Procedure and treatment not carried out because of other contraindication; I12.0 Hypertensive chronic kidney disease with stage 5 chronic kidney disease or end stage renal disease; N18.6 End stage renal disease; Z99.2 Dependence on renal dialysis; K21.9 Gastro-esophageal reflux disease without esophagitis; Z94.0 Kidney transplant status

== ENCOUNTER 2017-07-08 05:38 | Inpatient (IN) | payer OTHER ==
[~2017-07-08] VITALS: Ht 167.6 cm; Wt 67.9 kg
[2017-07-08] VITALS (9 sets, daily range): BP systolic 126–165; BP diastolic 81–107; PULSE 65–96; TEMP 36.4–36.7; O2SAT 94–96; Ht 167.6 cm; Wt 67.9 kg
[~2017-07-08 05:38] MED LIST changes: -BUPR150T7 PO; -CEFAZOLIN SOD 1000MG/5 ML IV PUSH IV ONE; -CLON0.3D5 EXT; -LABE100T23 PO
[2017-07-08] MEDS ORDERED: D5W AND 1/4NSS 1,000 ML IV SCH (05:59)
[2017-07-08] MEDS ORDERED: CEFAZOLIN 1000MG IV PUSH 5 ML IV SCH (06:00)
[2017-07-08] MEDS ORDERED: CEFAZOLIN IV 1,000 MG in DEXTROSE 5% 50ML 50 ML IV ONE (06:00)
--- NOTE | 2017-07-08 06:00 | History and Physical ---
History & Physical Date of Service Jul 08, 2017. History & Physical CC: End stage renal disease, malfunctioning fistula HPI: Mr. Do states that he received his first kidney transplant at the age of 3. He said it functioned for over 20 years before it failed, then he went on hemodialysis. He states that he then underwent another renal transplant, and that one lasted only two years before failing on him. He states that he previously had two fistulas created in his left arm, the first one at his wrist , the second one in his left upper arm cephalic vein. 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 He denies any other complaints at this time, including headaches, fevers, chills, dizziness, chest pain, shortness of breath, abdominal pain, nausea, vomiting, diarrhea, constipation, dysuria, hematuria, rest pain, claudication, nonhealing wounds or ulcers or other complaints. He does state that he is interested in continuous ambulatory peritoneal dialysis at home; however, he has not gone through the training for that as of yet. He had a left upper extremity basilic vein fistula created and which underwent transposition. The fistula is not working well at this time. He is admitted now for a fistulogram with possible intervention. ALLERGIES: MINOXIDIL AND TERAZOSIN. HOME MEDICATIONS: Reconciled in the chart and include the following; amitriptyline, Benicar, clonidine patch, Coreg, hydralazine, lisinopril, Norvasc , pantoprazole, Reglan, Sensipar, and vitamin D3. PAST MEDICAL HISTORY: Positive for hypertension, end-stage renal disease on hemodialysis, gastroesophageal reflux disease. PAST SURGICAL HISTORY: Positive for renal transplant in 1984, renal transplant in 2012, creation of an arteriovenous fistula x2 in the left arm and insertion of a tunneled dialysis catheter. SOCIAL HISTORY: Positive for past history of tobacco use. The patient states he quit approximately 1 month ago. FAMILY HISTORY: Noncontributory. REVIEW OF SYSTEMS: Negative for fatigue, fevers, sweats, weight loss, exercise intolerance, abnormal moles or rashes, vision changes or photophobia, ear pain, sinus problems or sore throat, cough, shortness of breath, hemoptysis or wheezing, chest pain, palpitations, edema or syncope, abdominal pain, nausea, vomiting, diarrhea, constipation, dysuria, hematuria, muscle weakness, headaches , dizziness, numbness or seizures. PHYSICAL EXAMINATION: His vital signs are as follows; blood pressure 156/92 with a heart rate of 81, oxygen 98% on room air. Constitutional: In general, patient is a mildly chronically ill-appearing middle-aged male in no acute distress. He ambulates without assistance and is active, alert and oriented x4 with normal recent and remote memory. His head is normocephalic, atraumatic. Eyes are EOMI. His ENAZ exam demonstrates no hearing loss, rhinorrhea or pharyngeal erythema. His neck is supple, nontender with midline trachea without masses or crepitus. Lung exam demonstrates no dyspnea. They are clear to auscultation bilaterally, although somewhat decreased throughout. His cardiovascular exam demonstrates a nondisplaced apical impulse with a regular rate and rhythm without murmurs, lifts, heaves, thrills or gallops. Peripheral pulses are full and equal in all extremities unless otherwise noted, specifically they are normal in his carotid, brachial, radial and femoral pulses. His bilateral lower extremities distal pulses are +2. He has brisk capillary refill and no sign of distal ischemia. The patient demonstrates no bruits in his carotid, abdominal or femoral area. His abdomen is soft, nontender with normoactive bowel sounds in all 4 quadrants without guarding or rebound. There is no flank or CVA tenderness. His musculoskeletal exam demonstrates normal tone and strength for age. His bilateral upper extremities demonstrate no cyanosis, edema, clubbing, varicosities or ulcers. His bilateral lower extremities demonstrate no cyanosis, edema, clubbing, varicosities or ulcers. Patient's left arm does demonstrate surgical incisions on his wrist as well as an antecubital surgical incision and a [id number] upper arm surgical incision as well. 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 His new fistula has a good thrill present. Neurologic: Patient is grossly intact cranial nerves and grossly intact sensation. ASSESSMENT AND PLAN: End-stage renal disease on hemodialysis. Malfunctioning fistula Plan: Patient is admitted for a fistulogram with possible intervention. I have discussed the risks options and benefits of the procedure with the patient. The patient understands the risks options and benefits and agrees to the procedure.
--- NOTE | 2017-07-08 07:07 | Procedure Note ---
Pre-Mod Sedation Assessment General Date of Moderate Sedation: Jul 08, 2017. Vital Signs: Vital Signs Past 12 Hours Date Time Temp Pulse Resp B/P (MAP) Pulse Ox O2 Delivery O2 Flow Rate FiO2 07/08/17 05:56 36.5 65 18 138/95 (109) 95 Room Air Pre-Sedation Airway Assessment Smoking Status: Former Smoker Mallampati Classification: Class I ASA Classification: Class III Notes The planned sedation has been discussed with the patient and consent obtained. I have identified the patient, determined the appropriateness of sedation and have assessed the patient immediately prior to the procedure. All medicine(s) and interventions are by my order.
--- NOTE | 2017-07-08 07:34 | Progress Note ---
Progress Note Date of Service Jul 08, 2017. Progress Note Patient with a k+ of 6.3 Will cancel surgery today and reschedule for tomorrow
[2017-07-08] MEDS ORDERED: BUPR150T7 PO (08:49)
[2017-07-08] MEDS ORDERED: LABE100T23 PO (09:08)
[2017-07-08] MEDS ORDERED: ALPRAZOLAM 0.5 MG TAB PO PRN (09:15)
--- NOTE | 2017-07-08 09:31 | History and Physical ---
History & Physical Date & Time of Service: Jul 08, 2017 at 08:57 Chief Complaint: End Stage Renal Disease -On Hemodialysis Primary Care Physician: Fanny Chen M.D. History of Present Illness Source: patient, clinic records, hospital records Pt is 36 y/o M with hx ESRD on HD, HTN seen in same day surgery for planned fistulogram however has hyperkalemia. Pt was to have planned fistulogram yesterday, however K 6.5 and he had HD and was to be admitted to hospital at that time, however pt signed out AMA. He returned this morning for his procedure and his K was 6.2 today. Pt denies any current complaints. He makes very little urine, denies hematuria. Pt follows with Dr Restrepo. He is planned to have HD this morning. Denies fever/chills, diaphoresis, N/V/D/C, ELAM, dizziness, syncope, vision changes, neck pain, CP, SOB, orthopnea, palpitations, cough, rhinorrhea, abdominal pain, paresthesias, weakness, extremity weakness, extremity edema, rashes. Past Medical/Surgical History Medical Problems: (1) Anxiety Status: Chronic (2) CAD (coronary artery disease) Permanent Comment: s/p stent placement Status: Chronic (3) Chronic kidney disease (CKD), stage V Permanent Comment: history glomerulonephritis Status: Chronic (4) Depression Status: Chronic (5) Dialysis patient Status: Chronic (6) Fistula Status: Chronic (7) GERD (gastroesophageal reflux disease) Status: Chronic (8) HTN (hypertension) Status: Chronic (9) Kidney transplant failure Status: Chronic (10) Thrombocytopenia Status: Chronic Surgical Problems: (1) Kidney transplant status Permanent Comment: R 1984 and L 2012 Status: Chronic (2) Status post AV fistula LUE Permanent Comment: 10/29/16 Status: Chronic (3) Stented coronary artery Permanent Comment: stents x 2 in [place] in 2006 and 2010 Status: Chronic Family History Diabetes mellitus FATHER Hypertension FATHER MOTHER Kidney disease FATHER MOTHER Social History Smoking Status: Former Smoker (smoked 0.5ppd x 6 years) Smokeless Tobacco Use: No Alcohol Use: none Drug Use: none Immunizations History of Influenza Vaccine: Yes Influenza Vaccine Date: Apr 05, 2016 History of Tetanus Vaccine?: Yes Tetanus Immunization Date: Feb 12, 2014 History of Pneumococcal: Yes Pneumococcal Date: Feb 12, 2014 Allergies Coded Allergies: Minoxidil (Verified Adverse Reaction, Intermediate, priapism, 07/08/17) Prednisone (Verified Adverse Reaction, Intermediate, SEVERE GI UPSET, CONSTIPATION, 07/08/17) PER RECORDS Terazosin (Verified Adverse Reaction, Intermediate, priapism, 07/08/17) Home Medications Scheduled Alprazolam (Xanax), 0.5 MG PO UD Amitriptyline HCl (Amitriptyline HCl), 25 MG PO HS Aspirin (Aspirin Ec), 81 MG PO QAM Bupropion Hcl (Wellbutrin Sr), 1 TAB PO BID Carvedilol (Carvedilol), 25 MG PO BID Cholecalciferol (Vitamin D3), 3,000 UNITS PO DAILY Cinacalcet (Sensipar), 30 MG PO QPM Clonidine Hcl (Catapres), 0.4 MG PO TID Gabapentin (Gabapentin), 100 MG PO TID Hydralazine HCl (Hydralazine HCl), 50 MG PO TID Labetalol Hcl (Labetalol Hcl), 1 TAB PO BID Metoclopramide (Reglan), 10 MG PO TID Pantoprazole (Protonix), 40 MG PO BID Sertraline (Zoloft), 50 MG PO QAM Sevelamer Hydroch (Renagel), 3,200 MG PO TIDM Trazodone Hcl (Trazodone), 50 MG PO HS Scheduled PRN Calcium Carbonate (Tums), 500 MG PO DAILY PRN for heartburn Review of Systems Constitutional: No fever, No chills, No sweats, No weakness Eyes: No eye pain, No redness ENT: No unusual epistaxis, No nasal symptoms, No sore throat, No trouble swallowing Respiratory: No cough, No sputum, No wheezing, No shortness of breath Cardiovascular: No chest pain, No orthopnea, No PND Abdomen: No pain, No nausea, No vomiting, No diarrhea, No constipation Musculoskeletal: + joint pain (reports chronic back pain), No swelling, No calf pain Neurologic: No numbness/tingling, No vertigo Integumentary: No rash, No itch Physical Exam Vital Signs Date Time Temp Pulse Resp B/P (MAP) Pulse Ox O2 Delivery O2 Flow Rate FiO2 07/08/17 07:24 36.5 65 18 138/95 95 Room Air 07/08/17 05:56 36.5 65 18 138/95 (109) 95 Room Air General Appearance: no apparent distress, + pertinent finding (chronically ill appearing) Head: normocephalic, atraumatic Eyes: normal inspection, sclerae normal ENT: hearing grossly normal, pharynx normal, + pertinent finding (mucous membranes moist) Neck: supple, trachea midline Respiratory/Chest: chest non-tender, lungs clear, normal breath sounds, no respiratory distress, no accessory muscle use Cardiovascular: regular rate, rhythm, no edema, no murmur, normal peripheral pulses Abdomen/GI: normal bowel sounds, non tender, soft Back: no CVA tenderness Extremities/Musculoskelatal: normal capillary refill, no pedal edema, normal range of motion, non-tender, + pertinent finding (healed surgical scars to L wrist, antecubital region, +fistula) Neurologic/Psych: alert, normal mood/affect, oriented x 3 Skin: warm/dry, no rash Diagnostics Laboratory Results Results Past 24 Hours Test 07/08/17 06:27 Range/Units Potassium Level 6.3 3.5-5.1 mmol/L Impression Assessment and Plan HYPERKALEMIA, ESRD ON HD K: 6.5 yesterday, had HD. This morning K: 6.2, and is planned to have HD this morning Planned fistulogram for today has been cancelled and rescheduled for tomorrow with Dr Aguirre. -Pending EKG -Nephrology - Dr Restrepo consulted, planned HD today. -Repeat PRP, CBC several hours after HD today -continue to monitor -Repeat PRP, CBC in am GERD/GASTROPARESIS -continue PPI -continue reglan HTN -continue carvedilol -continue clonidine -continue hydralazine -continue labetalol ANXIETY/DEPRESSION -Continue Zoloft -Continue Wellbutrin -Continue trazodone HS DVT PROPHYLAXIS -SCD DISPOSITION -admit tele -Full Code as per discussion with pt -Follows with Dr Chen for routine care Pt was seen with Dr Garcia. See addendum Level of Care Telemetry Resuscitation Status FULL RESUSCITATION VTE Prophylaxis VTE Risk Assessment Done? Y/N: Yes Risk Level: Moderate Given or contraindicated: SCD's Additional Copies To Fanny Chen M.D.
--- NOTE | 2017-07-08 10:03 | NEPHROLOGY CONSULTATION ---
DATE OF CONSULTATION: 07/08/2017 DATE OF CONSULTATION: 07/08/2017 ATTENDING OF RECORD: Dr. Jaramillo. REASON FOR CONSULTATION: End-stage renal disease. HISTORY OF PRESENT ILLNESS: This is a 36-year-old male who dialyzes at the [facility] on Mondays, Wednesdays, and Fridays. The patient has been having higher access pressures and came in Friday for elective fistulogram. The patient at that time was found to have an elevated potassium and was admitted and underwent a 3-hour dialysis treatment on a 2K bath. The patient though became frustrated while awaiting a bed and signed out AMA, came in electively to same day surgery this morning for the elective fistulogram and potassium level still elevated at 6.3 and has agreed to be admitted today and undergo dialysis and then will have dialysis again tomorrow morning with fistulogram in the afternoon. The patient admits to be eating more frozen prepared meals as well as potatoes last night which are higher in potassium and may be one of the reasons why his potassium level continues to be elevated. PAST MEDICAL HISTORY: End-stage renal disease on dialysis Mondays, Wednesdays, Fridays, hypertension, history of glomerulonephritis with history of 2 kidney transplants, anxiety, coronary artery disease with history of stenting to the heart. PAST SURGICAL HISTORY: Two kidney transplants, multiple fistula attempts, multiple tunneled dialysis catheters, stent to the heart. FAMILY HISTORY: Significant for kidney disease. SOCIAL HISTORY: Former smoker, no alcohol, no drugs. Lives with friends. REVIEW OF SYSTEMS: No headaches. No chest pain, no shortness of breath. No nausea, vomiting. No diarrhea or constipation. No dysphagia. No rash or itching. No fevers or chills. All other review of systems otherwise negative. MEDICATIONS: Reviewed. PHYSICAL EXAMINATION: VITAL SIGNS: Temperature 36.5, pulse 65, respiratory rate 18, blood pressure 138/95, satting 95% on room air. GENERAL: Awake, alert, oriented x3. Eyes no scleral icterus. HEAD, EYES, EARS, NOSE, AND THROAT: Moist mucous membranes. NECK: Supple. PULMONARY: Clear to auscultation. CARDIAC: Regular rate and rhythm. ABDOMEN: Bowel sounds positive, soft, nontender, nondistended. EXTREMITIES: No clubbing, cyanosis or edema. NEUROLOGICALLY: Nonfocal. DERMATOLOGIC: No rash or ulcers noted. LABORATORY DATA: Potassium level was 6.3. IMPRESSION AND PLAN: End-stage renal disease. The patient seen on dialysis dialyzing on 3 hours 2K bath, 1 liter UF as his blood pressure tolerates. We will recheck potassium levels again tomorrow and plan on another 3-hour dialysis treatment along with checking a CBC tomorrow to see if patient would benefit from any Procrit. I appreciate the consultation. COLETTE
[2017-07-08] MEDS: CLONIDINE HCL 0.1 MG TAB PO SCH ×2 (14:37→21:46)
[2017-07-08] MEDS: METOCLOPRAMIDE HCL 10 MG TAB PO SCH ×2 (14:38→21:42)
[2017-07-08] MEDS: GABAPENTIN 100 MG CAP PO SCH ×2 (14:38→21:44)
[2017-07-08] MEDS ORDERED: NURSING VERBAL MED ORDER ONE (15:15)
[2017-07-08] MEDS: OXYCODONE/ACETAMINOPHEN 5-325 TAB PO PRN ×2 (15:50→21:53)
[2017-07-08 16:52] LABS: HEMATOCRIT 33.3 % (42-52); MEAN CELL VOLUME 93.5 fL (80-100); MEAN CORPUSCULAR HEMOGLOBIN 31.2 pg (25-34); MEAN CORPUSCULAR HGB CONC 33.3 g/dl (32-36); MEAN PLATELET VOLUME 10.7 fL (7.4-10.4); PLATELET COUNT 131 K/uL (130-400); RED BLOOD COUNT 3.56 M/uL (4.7-6.1); WHITE BLOOD COUNT 4.92 K/uL (4.8-10.8)
[2017-07-08] MEDS: SEVELAMER HYDROCH 800 MG TAB PO SCH (17:02)
[2017-07-08 17:18] LABS: BUN/CREATININE RATIO 3.9 (10-20); CALCIUM 7.5 mg/dl (8.5-10.1); CREATININE 5.88 mg/dl (0.60-1.40); POTASSIUM 4.3 mmol/L (3.5-5.1)
[2017-07-08] MEDS: CARVEDILOL 25 MG TAB PO SCH (21:43)
[2017-07-08] MEDS: LABETALOL HCL 100 MG TAB PO SCH (21:44)
[2017-07-08] MEDS: TRAZODONE HCL 50 MG TAB PO SCH (21:44)
[2017-07-08] MEDS: AMITRIPTYLINE HCL 25 MG TAB PO SCH (21:45)
[2017-07-08] MEDS: BuPROPion SR 150 MG TABCR PO SCH (21:45)
[2017-07-08] MEDS: PANTOprazole SOD 40 MG TAB PO SCH (21:47)
[2017-07-09] VITALS (24 sets, daily range): BP systolic 103–155; BP diastolic 64–95; PULSE 52–81; TEMP 36.4–36.9; O2SAT 92–96
[2017-07-09 07:30] LABS: HEMATOCRIT 31.9 % (42-52); MEAN CELL VOLUME 94.4 fL (80-100); MEAN CORPUSCULAR HEMOGLOBIN 30.8 pg (25-34); MEAN CORPUSCULAR HGB CONC 32.6 g/dl (32-36); MEAN PLATELET VOLUME 10.6 fL (7.4-10.4); PLATELET COUNT 110 K/uL (130-400); RED BLOOD COUNT 3.38 M/uL (4.7-6.1); WHITE BLOOD COUNT 4.72 K/uL (4.8-10.8)
[2017-07-09] MEDS: SEVELAMER HYDROCH 800 MG TAB PO SCH ×3 (08:00→16:41)
[2017-07-09 08:13] LABS: BUN/CREATININE RATIO 4.1 (10-20); CALCIUM 7.6 mg/dl (8.5-10.1); CREATININE 7.89 mg/dl (0.60-1.40)
[2017-07-09] MEDS: ASPIRIN 81 MG ECTAB PO SCH (08:20)
[2017-07-09] MEDS: GABAPENTIN 100 MG CAP PO SCH ×3 (08:21→20:37)
[2017-07-09] MEDS: CHOLECALCIFEROL 1000 INTER.UNIT TAB PO SCH (08:21)
[2017-07-09] MEDS: METOCLOPRAMIDE HCL 10 MG TAB PO SCH ×3 (08:21→20:35)
[2017-07-09] MEDS: SERTRALINE HCL 50 MG TAB PO SCH (08:22)
[2017-07-09] MEDS: CARVEDILOL 25 MG TAB PO SCH ×2 (08:22→20:36)
[2017-07-09] MEDS: CLONIDINE HCL 0.1 MG TAB PO SCH ×3 (08:22→20:38)
[2017-07-09] MEDS: LABETALOL HCL 100 MG TAB PO SCH ×2 (08:22→20:36)
[2017-07-09] MEDS: BuPROPion SR 150 MG TABCR PO SCH ×2 (08:22→20:38)
[2017-07-09] MEDS: PANTOprazole SOD 40 MG TAB PO SCH ×2 (08:23→20:39)
[2017-07-09] MEDS: OXYCODONE/ACETAMINOPHEN 5-325 TAB PO PRN ×4 (08:27→16:42)
--- NOTE | 2017-07-09 09:24 | Dialysis Progress Note ---
Nephrology Dialysis Note Date of Service: Jul 09, 2017. Subjective 36 yo male with esrd with persistent hyperkalemia this week. pts potassium levels were still elevated this morning and now on dialysis. for fistulagram this afternoon. pt feels good. Objective Date Time Temp Pulse Resp B/P (MAP) Pulse Ox O2 Delivery O2 Flow Rate FiO2 07/09/17 07:24 36.9 66 18 131/86 (101) 92 Room Air 07/09/17 04:00 Room Air 07/09/17 04:00 36.7 68 20 126/83 (97) 95 Room Air 07/09/17 00:00 36.7 66 20 103/70 (81) 95 Room Air 07/09/17 00:00 Room Air 07/08/17 22:33 36.7 69 18 165/101 96 Room Air 07/08/17 21:41 69 165/101 (122) 96 Room Air 07/08/17 20:00 96 Room Air 07/08/17 19:56 36.7 68 18 133/88 (103) 94 Room Air 07/08/17 16:00 94 Room Air 07/08/17 14:33 36.4 96 20 126/81 (96) 94 Room Air 07/08/17 13:35 36.7 74 16 149/107 96 Room Air Physical Exam: General-aaox3 Eyes-no scleral icterus ENT-mmm Neck-supple Lungs-cta Heart-rrr Abdomen-bs+ s/nt/nd Extremities-no c/c/e Neuro-nonfocal Current Inpatient Medications Medications (Trade) Dose Ordered Sig/Betsy Route Start Time Stop Time Status Last Admin Dose Admin Acetaminophen (Tylenol Tab) 650 mg Q4H PRN PO 07/08/17 08:30 08/07/17 08:29 Alprazolam (Xanax Tab) 0.5 mg DAILY PRN PO 07/08/17 09:15 08/07/17 09:14 07/09/17 08:27 0.5 MG Amitriptyline HCl (Elavil Tab) 25 mg HS PO 07/08/17 21:00 08/07/17 20:59 07/08/17 21:45 25 MG Aspirin (Ecotrin Tab) 81 mg QAM PO 07/09/17 09:00 08/08/17 08:59 07/09/17 08:20 81 MG Bupropion HCl (Wellbutrin-Sr Tab) 150 mg BID PO 07/08/17 21:00 08/07/17 20:59 07/09/17 08:22 150 MG Carvedilol (Coreg Tab) 25 mg BID PO 07/08/17 21:00 08/07/17 20:59 07/08/17 21:43 25 MG Cholecalciferol (Vitamin D Tab) 3,000 inter.unit DAILY PO 07/09/17 09:00 08/08/17 08:59 07/09/17 08:21 3,000 INTER.UNIT Gabapentin (Neurontin Cap) 100 mg TID PO 07/08/17 14:00 08/07/17 13:59 07/09/17 08:21 100 MG Hydralazine HCl (Apresoline Tab) 50 mg TID PO 07/08/17 14:00 08/07/17 13:59 07/09/17 08:20 50 MG Labetalol HCl (Normodyne Tab) 100 mg BID PO 07/08/17 21:00 08/07/17 20:59 07/08/17 21:44 100 MG Metoclopramide HCl (Reglan Tab) 10 mg TID PO 07/08/17 14:00 08/07/17 13:59 07/09/17 08:21 10 MG Pantoprazole Sodium (Protonix Tab) 40 mg BID PO 07/08/17 21:00 08/07/17 20:59 07/09/17 08:23 40 MG Sertraline HCl (Zoloft Tab) 50 mg QAM PO 07/09/17 09:00 08/08/17 08:59 07/09/17 08:22 50 MG Sevelamer HCl (Renagel Tab) 3,200 mg TIDM PO 07/08/17 17:00 08/07/17 16:59 07/08/17 17:02 3,200 MG Trazodone HCl (Desyrel Tab) 50 mg HS PO 07/08/17 21:00 08/07/17 20:59 07/08/17 21:44 50 MG Miscellaneous Information (Order Awaiting Action) 1 ea QS N/A 07/08/17 16:00 08/07/17 15:59 Clonidine HCl (Catapres Tab) 0.4 mg TID PO 07/08/17 14:00 08/07/17 13:59 07/09/17 08:22 0.4 MG Oxycodone/ Acetaminophen (Percocet 5-325mg Tab) 1 tab Q6 PRN PO 07/08/17 14:45 07/22/17 14:44 07/09/17 08:27 1 TAB Last 24 Hours Test 07/08/17 15:52 07/09/17 07:05 White Blood Count 4.92 K/uL 4.72 K/uL Red Blood Count 3.56 M/uL 3.38 M/uL Hemoglobin 11.1 g/dL 10.4 g/dL Hematocrit 33.3 % 31.9 % Mean Corpuscular Volume 93.5 fL 94.4 fL Mean Corpuscular Hemoglobin 31.2 pg 30.8 pg Mean Corpuscular Hemoglobin Concent 33.3 g/dl 32.6 g/dl RDW Standard Deviation 52.8 fL 54.5 fL RDW Coefficient of Variation 15.7 % 15.8 % Platelet Count 131 K/uL 110 K/uL Mean Platelet Volume 10.7 fL 10.6 fL Sodium Level 139 mmol/L 135 mmol/L Potassium Level 4.3 mmol/L 6.0 mmol/L Chloride Level 100 mmol/L 98 mmol/L Carbon Dioxide Level 34 mmol/L 30 mmol/L Anion Gap 5.0 mmol/L 7.0 mmol/L Blood Urea Nitrogen 23 mg/dl 33 mg/dl Creatinine 5.88 mg/dl 7.89 mg/dl Est Creatinine Clear Calc Drug Dose 15.4 ml/min 11.4 ml/min Estimated GFR () 12.9 9.1 Estimated GFR (Non- 11.2 7.8 BUN/Creatinine Ratio 3.9 4.1 Random Glucose 106 mg/dl 84 mg/dl Calcium Level 7.5 mg/dl 7.6 mg/dl Assessment & Plan ESRD-seen on dialysis today. has persistent hyperkalemia. I am recommending that we keep him an additional night to check potassium levels again tomorrow morning to see if potassium levels are stable tomorrow. may need another dialysis treatment tomorrow depending on potassium levels. HEME: hg levels are good and no role for procrit today.
[2017-07-09] MEDS: ACETAMINOPHEN 325 MG TAB PO PRN ×2 (09:32→10:16)
[2017-07-09] MEDS ORDERED: FENTANYL CITRATE INJ 50 MCG/1 ML 2 ML VIAL IV PRN (12:30)
[2017-07-09] MEDS ORDERED: ATROPINE SULFATE 0.1 MG/ML 5ML SYR IV PRN (12:30)
[2017-07-09] MEDS ORDERED: EpHEDrine SULFATE INJ 50 MG/ML AMP IV PRN (12:30)
[2017-07-09] MEDS ORDERED: CEFAZOLIN SOD 1000MG/5 ML IV PUSH IV ONE (12:50)
--- NOTE | 2017-07-09 13:02 | Progress Note ---
Progress Note Date of Service Jul 09, 2017. Progress Note Patient for fistulogram with possible intervention. I have discussed the risks options and benefits of the procedure with the patient. The patient understands the risks options and benefits and agrees to the procedure. I have examined the patient, reviewed the History & Physical and in the interval since the performance of the History & Physical I have noted the following changes of clinical significance: No changes noted
[2017-07-09] MEDS ORDERED: MIDAZOLAM HCL 1 MG/ML 2ML VIAL ONE ×2 (13:07→13:17)
[2017-07-09] MEDS ORDERED: FENTANYL CITRATE INJ 50 MCG/1 ML 2 ML VIAL ONE (13:17)
[2017-07-09] MEDS ORDERED: DiphenhydrAMINE HCL 50 MG/ML VIAL ONE (13:31)
[2017-07-09] MEDS ORDERED: PROPOFOL IV EMULSION 10 MG/ML 20 ML VIAL IV ONE ×2 (13:58→14:31)
--- NOTE | 2017-07-09 14:44 | [facility] Post Operative Brief Note ---
Immediate Operative Summary Operative Date Jul 09, 2017. Pre-Operative Diagnosis Malfunctioning Fistula Post-Operative Diagnosis Same Procedure(s) Performed Fistulogram Percutaneous Transluminal Angioplasty/Stent Peripheral Venous Percutaneous Transluminal Angioplasty/Stent Innominate Vein, Subclavian Surgeon [facility] Director Surgeon(s) None Estimated Blood Loss 10 Findings good thrill Specimens None Anesthesia Local with sedation Disposition Recovery Room / PACU
[2017-07-09] MEDS ORDERED: OPTIRAY 300 IV ONE (14:53)
[2017-07-09] MEDS ORDERED: LIDOCAINE HCL 1% 20 ML VIAL INJ ONE (14:53)
--- NOTE | 2017-07-09 15:00 | [facility] Operative Report ---
Operative Report Operative Date Jul 09, 2017. Pre-Operative Diagnosis Malfunctioning Fistula Post-Operative Diagnosis Same Procedure(s) Performed Fistulogram Percutaneous Transluminal Angioplasty/Stent Peripheral Venous Percutaneous Transluminal Angioplasty/Stent Innominate Vein, Subclavian Surgeon [employer] Surgeon(s) None Estimated Blood Loss 10 Findings Good thrill. 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 We recommended the fistulogram. We also recommended possible intervention if any' s any problems were seen. I have discussed the risks options and benefits of the procedure with the patient. The patient understands the risks options and benefits and agrees to the procedure. Description of Procedure The patient was taken to the angiogram suite and placed in the supine position. The left arm was then prepped and draped in a sterile manner. Local anesthetic was administered and a percutaneous puncture was then made of the proximal portion of the left arm AV fistula using micropuncture technique. Micropuncture wire and sheath were then inserted. A fistulogram was then performed. The fistulogram showed a occlusion of the left innominate vein and a tight stenosis in the fistula in the upper arm on the left side. The micropuncture sheath was then exchanged over a wire to a 6 Macedonian sheath. Using an 035 wire and a an angled glide catheter we were able to cross the innominate occlusion. This was done with some difficulty. Once the glide catheter was through, the wire was removed and we did another injection which showed the catheter to be in the superior vena cava. We then inserted a stiffened Glidewire which passed into the inferior vena cava from above. We then dilated the innominate vein using a 5 x 100 and a 7 x 100 Jacob balloon. There was still a significant amount of recoil with very little contrast going through. We then dilated the area with an 8 x 4 conquest. There is slightly more contrast seen going through the occlusion of the innominate vein. There was still a significant amount of recoil. We exchanged the sheath to an 11 Fr sheath. We then placed an 18 x 10 a wall stent in the innominate vein. We ballooned this with the 10 x 4 conquest balloon. The flow through this area was better however there is still a stenosis seen just prior to the superior vena cava. We decided to stent this area also. We used an 18 x 6 Wallstent to overlap the other previously placed stent. We then balloooned this area with a 12 x 4 Jacob balloon. The injection showed fairly good results with rapid flow through the innominate vein into the superior vena cava. There was a decrease in the collateral flow noted. We then addressed our attention to the upper part of the arm. The area of tight stenosis was ballooned with a 7 x 4 balloon. Recoil was seen. There was a band that could be opened. At that point we placed a 10 x 5 Viabahn stent across this area. We then ballooned with an 8 x 4 balloon until the band was eliminated. Injection done that same shows excellent flow through the fistula. There was an excellent thrill felt. Another injection and reinspection of the central veins showed good flow through the innominate vein into the superior vena cava. A good thrill was felt in the fistula. We then closed the puncture with a 3-0 nylon suture and pressure. Adequate hemostasis was obtained. The patient left the angiogram suite in good condition and tolerated the procedure well. I attest to the content of the Intraoperative Record and any orders documented therein. Any exceptions are noted below.
--- NOTE | 2017-07-09 15:29 | Anesthesiology Progress Note ---
Anesthesia Post Op Note Date & Time Jul 09, 2017 at 15:29 Vital Signs Pain Intensity: 0 Vital Signs Past 12 Hours Date Time Temp Pulse Resp B/P (MAP) Pulse Ox O2 Delivery O2 Flow Rate FiO2 07/09/17 15:10 36.4 63 16 127/81 93 Room Air 07/09/17 15:00 64 16 112/95 93 Room Air 07/09/17 14:51 36.7 69 16 122/85 98 Room Air 0 07/09/17 12:09 36.4 81 148/71 (96) 07/09/17 11:45 71 127/67 07/09/17 11:30 69 132/74 07/09/17 11:15 74 127/68 07/09/17 11:00 70 134/71 07/09/17 10:45 66 141/68 07/09/17 10:30 52 132/74 07/09/17 10:15 58 124/69 07/09/17 10:00 67 137/72 07/09/17 09:45 65 127/68 07/09/17 09:30 71 141/71 07/09/17 09:15 69 132/64 07/09/17 09:00 71 142/69 07/09/17 08:45 60 138/74 07/09/17 08:30 36.8 66 155/75 (101) 07/09/17 08:25 Room Air 07/09/17 07:24 36.9 66 18 131/86 (101) 92 Room Air 07/09/17 04:00 Room Air 07/09/17 04:00 36.7 68 20 126/83 (97) 95 Room Air Notes Mental Status: alert / awake / arousable, participated in evaluation Pt Amnestic to Procedure: Yes Nausea / Vomiting: adequately controlled Pain: adequately controlled Airway Patency, RR, SpO2: stable & adequate BP & HR: stable & adequate Hydration State: stable & adequate Anesthetic Complications: no major complications apparent
--- NOTE | 2017-07-09 17:55 | Progress Note ---
Medicine Progress Note Date & Time of Visit: Jul 09, 2017 at 16:49. Subjective Pt was seen and examined Lying in bed with no distress Pt just came back from the procedure for his fistula repair He said that he feels fine He wanted to go home today After informing him that his K was elevated that we need to check it in the morning He agreed to stay in the hospital for tonight Denies any chest pain, palpitation, dizziness and SOB Objective Last 8 Hrs Date Time Temp Pulse Resp B/P (MAP) Pulse Ox O2 Delivery O2 Flow Rate FiO2 07/09/17 16:44 66 140/95 (110) 95 Room Air 07/09/17 16:00 92 Room Air 07/09/17 15:36 36.8 63 18 134/84 (101) 92 Room Air 07/09/17 15:10 36.4 63 16 127/81 93 Room Air 07/09/17 15:00 64 16 112/95 93 Room Air 07/09/17 14:51 36.7 69 16 122/85 98 Room Air 0 07/09/17 12:09 36.4 81 148/71 (96) 07/09/17 11:45 71 127/67 07/09/17 11:30 69 132/74 07/09/17 11:15 74 127/68 07/09/17 11:00 70 134/71 07/09/17 10:45 66 141/68 07/09/17 10:30 52 132/74 07/09/17 10:15 58 124/69 07/09/17 10:00 67 137/72 07/09/17 09:45 65 127/68 07/09/17 09:30 71 141/71 07/09/17 09:15 69 132/64 07/09/17 09:00 71 142/69 Physical Exam: General- No acute distress Head- atraumatic Eyes- PERRL, EOMI ENT- oropharynx clear Neck- supple, no JVD Lungs- clear to auscultation Heart- regular rhythm Abdomen- normal bowel sounds, soft Extremities-no calf tenderness Neuro- alert, oriented x 3; PERRL, EOMI Skin- warm & dry Laboratory Results: Last 24 Hours Test 07/09/17 07:05 White Blood Count 4.72 K/uL Red Blood Count 3.38 M/uL Hemoglobin 10.4 g/dL Hematocrit 31.9 % Mean Corpuscular Volume 94.4 fL Mean Corpuscular Hemoglobin 30.8 pg Mean Corpuscular Hemoglobin Concent 32.6 g/dl RDW Standard Deviation 54.5 fL RDW Coefficient of Variation 15.8 % Platelet Count 110 K/uL Mean Platelet Volume 10.6 fL Sodium Level 135 mmol/L Potassium Level 6.0 mmol/L Chloride Level 98 mmol/L Carbon Dioxide Level 30 mmol/L Anion Gap 7.0 mmol/L Blood Urea Nitrogen 33 mg/dl Creatinine 7.89 mg/dl Est Creatinine Clear Calc Drug Dose 11.4 ml/min Estimated GFR () 9.1 Estimated GFR (Non- 7.8 BUN/Creatinine Ratio 4.1 Random Glucose 84 mg/dl Calcium Level 7.6 mg/dl Assessment & Plan HYPERKALEMIA Hx ESRD ON HD K today was 6. Had HD done today Continue monitor BMP Monitor in telemetry Malfunctioning Fistula S/p Fistulogram/Percutaneous Transluminal Angioplasty/Stent Peripheral Venous performed by Dr. Aguirre No post op complication Continue monitor ERSD ON HD Has been HD daily in the last 3 days K elevated today Check BMP in am If K elevates tomorrow, will plan to HD as per Nephro Continue monitor GERD/GASTROPARESIS Continue PPI and Reglan stable HTN Continue carvedilol, clonidine, hydralazine, labetalol Continue monitor BP ANXIETY/DEPRESSION Continue Zoloft, Wellbutrin, trazodone HS Stable DVT PROPHYLAXIS SCDs due to recent procedure CODE STATUS FULL CODE DISPOSITION Follow up with Dr. Duffy (Dr. Ryan Colleague) on 07/15 @ 12:45 pm Consultants: Nephro vascular Current Inpatient Medications: Current Inpatient Medications Medications (Trade) Dose Ordered Sig/Betsy Route Start Time Stop Time Status Last Admin Dose Admin Acetaminophen (Tylenol Tab) 650 mg Q4H PRN PO 07/08/17 08:30 08/07/17 08:29 07/09/17 09:32 650 MG Alprazolam (Xanax Tab) 0.5 mg DAILY PRN PO 07/08/17 09:15 08/07/17 09:14 07/09/17 08:27 0.5 MG Amitriptyline HCl (Elavil Tab) 25 mg HS PO 07/08/17 21:00 08/07/17 20:59 07/08/17 21:45 25 MG Aspirin (Ecotrin Tab) 81 mg QAM PO 07/09/17 09:00 08/08/17 08:59 07/09/17 08:20 81 MG Bupropion HCl (Wellbutrin-Sr Tab) 150 mg BID PO 07/08/17 21:00 08/07/17 20:59 07/09/17 08:22 150 MG Carvedilol (Coreg Tab) 25 mg BID PO 07/08/17 21:00 08/07/17 20:59 07/08/17 21:43 25 MG Cholecalciferol (Vitamin D Tab) 3,000 inter.unit DAILY PO 07/09/17 09:00 08/08/17 08:59 07/09/17 08:21 3,000 INTER.UNIT Gabapentin (Neurontin Cap) 100 mg TID PO 07/08/17 14:00 08/07/17 13:59 07/09/17 08:21 100 MG Hydralazine HCl (Apresoline Tab) 50 mg TID PO 07/08/17 14:00 08/07/17 13:59 07/09/17 08:20 50 MG Labetalol HCl (Normodyne Tab) 100 mg BID PO 07/08/17 21:00 08/07/17 20:59 07/08/17 21:44 100 MG Metoclopramide HCl (Reglan Tab) 10 mg TID PO 07/08/17 14:00 08/07/17 13:59 07/09/17 08:21 10 MG Pantoprazole Sodium (Protonix Tab) 40 mg BID PO 07/08/17 21:00 08/07/17 20:59 07/09/17 08:23 40 MG Sertraline HCl (Zoloft Tab) 50 mg QAM PO 07/09/17 09:00 08/08/17 08:59 07/09/17 08:22 50 MG Sevelamer HCl (Renagel Tab) 3,200 mg TIDM PO 07/08/17 17:00 08/07/17 16:59 07/09/17 16:41 3,200 MG Trazodone HCl (Desyrel Tab) 50 mg HS PO 07/08/17 21:00 08/07/17 20:59 07/08/17 21:44 50 MG Miscellaneous Information (Order Awaiting Action) 1 ea QS N/A 07/08/17 16:00 08/07/17 15:59 Clonidine HCl (Catapres Tab) 0.4 mg TID PO 07/08/17 14:00 08/07/17 13:59 07/09/17 08:22 0.4 MG Oxycodone/ Acetaminophen (Percocet 5-325mg Tab) 1 tab Q6 PRN PO 07/08/17 14:45 07/22/17 14:44 07/09/17 16:42 1 TAB Fentanyl Citrate (Fentanyl Inj) 25 mcg Q5M PRN IV 07/09/17 12:30 07/09/17 17:30 Ephedrine Sulfate (EpHEDrine SULFATE INJ) 5 mg Q5M PRN IV 07/09/17 12:30 07/09/17 17:30 Atropine Sulfate (Atropine Sulfate 0.1MG/Ml Inj) 0.5 mg Q1M PRN IV 07/09/17 12:30 07/09/17 17:30
[2017-07-09] MEDS: TRAZODONE HCL 50 MG TAB PO SCH (20:35)
[2017-07-09] MEDS: AMITRIPTYLINE HCL 25 MG TAB PO SCH (20:37)
[2017-07-09] MEDS: ALPRAZOLAM 0.5 MG TAB PO PRN (21:17)
[2017-07-10] VITALS (19 sets, daily range): BP systolic 115–178; BP diastolic 76–115; PULSE 64–74; TEMP 36.5–37.1; O2SAT 92–95
[2017-07-10 08:19] LABS: BUN/CREATININE RATIO 3.9 (10-20); CALCIUM 7.9 mg/dl (8.5-10.1); CREATININE 7.34 mg/dl (0.60-1.40); POTASSIUM 6.1 mmol/L (3.5-5.1)
[2017-07-10] MEDS: ASPIRIN 81 MG ECTAB PO SCH (08:40)
[2017-07-10] MEDS: SEVELAMER HYDROCH 800 MG TAB PO SCH ×2 (08:41→14:15)
[2017-07-10] MEDS: PANTOprazole SOD 40 MG TAB PO SCH (08:41)
[2017-07-10] MEDS: SERTRALINE HCL 50 MG TAB PO SCH (08:41)
[2017-07-10] MEDS: GABAPENTIN 100 MG CAP PO SCH ×2 (08:41→14:15)
[2017-07-10] MEDS: METOCLOPRAMIDE HCL 10 MG TAB PO SCH ×2 (08:42→14:14)
[2017-07-10] MEDS: CHOLECALCIFEROL 1000 INTER.UNIT TAB PO SCH (08:42)
[2017-07-10] MEDS: BuPROPion SR 150 MG TABCR PO SCH (08:42)
[2017-07-10] MEDS: CLONIDINE HCL 0.1 MG TAB PO SCH ×2 (08:43→14:14)
[2017-07-10] MEDS: CARVEDILOL 25 MG TAB PO SCH (08:43)
[2017-07-10] MEDS: LABETALOL HCL 100 MG TAB PO SCH (08:43)
[2017-07-10] MEDS: ALPRAZOLAM 0.5 MG TAB PO PRN (08:48)
[2017-07-10] MEDS: OXYCODONE/ACETAMINOPHEN 5-325 TAB PO PRN (08:49)
[2017-07-10] MEDS: ACETAMINOPHEN 325 MG TAB PO PRN (09:56)
--- NOTE | 2017-07-10 17:23 | Progress Note ---
Medicine Progress Note Date & Time of Visit: Jul 10, 2017 at 09:12. Subjective Pt was seen and examined Lying in bed with no distress Pt is very anxious to go home He had HD done this morning (today is the 4th day of HD) He wants to sign AMA Explained to pt about his K needs to be check tomorrow His K has been elevated on morning lab Explained to patient about the complications of elevated k such as cardia arrhythmia and currently denies any chest pain, palpitation, dizziness and SOB Objective Last 8 Hrs Date Time Temp Pulse Resp B/P (MAP) Pulse Ox O2 Delivery O2 Flow Rate FiO2 07/10/17 15:10 37.1 72 18 138/90 (106) 94 Room Air 07/10/17 13:00 36.8 70 18 137/91 (106) 95 Room Air 07/10/17 13:00 95 Room Air 07/10/17 12:22 36.5 64 144/92 (109) 07/10/17 12:15 69 133/89 07/10/17 12:00 69 133/89 07/10/17 11:45 68 135/89 07/10/17 11:30 70 136/91 07/10/17 11:15 68 142/96 07/10/17 11:00 68 141/92 07/10/17 10:45 69 178/115 07/10/17 10:30 70 144/101 07/10/17 10:15 73 149/107 07/10/17 10:00 70 164/110 07/10/17 09:45 71 147/102 07/10/17 09:30 74 144/101 Physical Exam: General- No acute distress Head- atraumatic Eyes- PERRL, EOMI ENT- oropharynx clear Neck- supple, no JVD Lungs- clear to auscultation Heart- regular rhythm Abdomen- normal bowel sounds, soft Extremities-no calf tenderness Neuro- alert, oriented x 3; PERRL, EOMI Skin- warm & dry Laboratory Results: Last 24 Hours Test 07/10/17 07:08 Sodium Level 132 mmol/L Potassium Level 6.1 mmol/L Chloride Level 100 mmol/L Carbon Dioxide Level 24 mmol/L Anion Gap 8.0 mmol/L Blood Urea Nitrogen 29 mg/dl Creatinine 7.34 mg/dl Est Creatinine Clear Calc Drug Dose 12.3 ml/min Estimated GFR () 9.9 Estimated GFR (Non- 8.5 BUN/Creatinine Ratio 3.9 Random Glucose 83 mg/dl Calcium Level 7.9 mg/dl Assessment & Plan HYPERKALEMIA Hx ESRD ON HD K today was 6.1 Had HD done today (4th) Continue monitor BMP Monitor in telemetry Pt does not want to stay in the hospital for tonight discussed with him about the risk and complications by signing AMA he understood elevated potassium can cause cardiac arrhythmia and Advised pt to get dialyzed tomorrow since he decides to sign AMA Case discussed with Nephro dr. Restrepo Malfunctioning Fistula S/p day1 Fistulogram/Percutaneous Transluminal Angioplasty/Stent Peripheral Venous performed by Dr. Aguirre No post op complication stable ERSD ON HD Has been HD daily in the last 4 days K elevated today Check BMP in am Continue monitor signed AMA GERD/GASTROPARESIS Continue PPI and Reglan stable HTN Continue carvedilol, clonidine, hydralazine, labetalol Continue monitor BP ANXIETY/DEPRESSION Continue Zoloft, Wellbutrin, trazodone HS Stable DVT PROPHYLAXIS SCDs due to recent procedure CODE STATUS FULL CODE DISPOSITION Follow up with Dr. Duffy (Dr. Ryan Colleague) on 07/15 @ 12:45 pm Consultants: Nephro vascular
--- NOTE | 2017-07-10 17:27 | Discharge Instructions ---
Discharge Instructions Date of Service Jul 10, 2017. Admission Reason for Admission: Esrd On Dialysis, Hyperkalemia Discharge Discharge Diagnosis / Problem: Hyperkalemia/ ESRD ON HD Discharge Goals Goal(s): Decrease discomfort, Improve function, Improve disease control Activity Recommendations Activity Limitations: resume your previous activity (as tolerated) . Instructions / Follow-Up Instructions / Follow-Up Signed against medical advice Follow up with Dr. Duffy (Dr. Ryan Colleague) on 07/15 @ 12:45 pm Advised patient to get dialysis tomorrow Continue monitor BMP Current Hospital Diet Patient's current hospital diet: Renal Diet, Low Potassium Diet (2g K) Discharge Diet Recommended Diet: Renal Diet, Low Potassium Diet (2g K) Procedures Procedures Performed: Fistulogram Percutaneous Transluminal Angioplasty/Stent Peripheral Venous Percutaneous Transluminal Angioplasty/Stent Innominate Vein, Subclavian Pending Studies Studies pending at discharge: no Medical Emergencies . Who to Call and When: Medical Emergencies: If at any time you feel your situation is an emergency, please call 911 immediately. . Non-Emergent Contact Non-Emergency issues call your: Primary Care Provider, Specialist Physicians Call Non-Emergent contact if: you have any medication questions . . "Provider Documentation" section prepared by Jori Garcia. . VTE Core Measure Inpt VTE Proph given/why not?: SCD's
== END 2017-07-10 15:55 | disposition left against medical advice (07) | DRG 252 ==
LOC: C.ACU 05:38 → C.MED 08:30 → CMPBEDREQ 08:49 → EDBEDREQ 08:49 → ENRESERV 10:25 → C.MED 07-10 11:59
PROVIDERS: ADMIT Internal Medicine; ATTEND Internal Medicine
PROC: 057 Upper Veins, Dilation (ICD-10-PCS; principal; 2017-07-09 12:45)
PROC: 057 Upper Veins, Dilation (ICD-10-PCS; principal; 2017-07-09 12:45)
DX: T82.858A Stenosis of other vascular prosthetic devices, implants and grafts, initial encounter (principal); N18.6 End stage renal disease; I12.0 Hypertensive chronic kidney disease with stage 5 chronic kidney disease or end stage renal disease; E87.5 Hyperkalemia; K21.9 Gastro-esophageal reflux disease without esophagitis; F41.9 Anxiety disorder, unspecified; I25.10 Atherosclerotic heart disease of native coronary artery without angina pectoris; F32.9 Major depressive disorder, single episode, unspecified; Z87.891 Personal history of nicotine dependence; Z99.2 Dependence on renal dialysis; Z82.49 Family history of ischemic heart disease and other diseases of the circulatory system; Z83.3 Family history of diabetes mellitus; Z84.1 Family history of disorders of kidney and ureter

== ENCOUNTER 2017-09-17 11:30 | Observation (INO) | payer OTHER ==
[~2017-09-17] VITALS: Ht 167.6 cm; Wt 69.5 kg
[~2017-09-17 11:30] MED LIST changes: +BUPR150T7 PO; +LABE100T23 PO; -LBT200 PO
[2017-09-17] MEDS ORDERED: ONDANSETRON 4MG OD TAB ONE (12:15)
[2017-09-17] MEDS ORDERED: HYDROmorphone INJ 1 MG/ML SYR IV STA ×2 (12:35→13:58)
[2017-09-17] MEDS ORDERED: ONDANSETRON INJ 2 MG/ML 2 ML VIAL IV STA (12:35)
--- NOTE | 2017-09-17 12:47 | EMERGENCY ROOM VISIT NOTE ---
History Report prepared by Shaggy: Darnell Albright Under the Supervision of: Dr. Brian Byrd M.D. First contact with patient: 12:12 Chief Complaint: VOMITING Stated Complaint: VOMITING, BACK PAIN Nursing Triage Summary: Patient arrived via BLS from home. Patient c/o back pain and N/V that began at midnight last night. Patient is dialysis patient, had dialysis this AM. Fistula noted to patients left upper arm. Patient has hx of pancreatitis and kidney failure. Denies CP, SOB, or diarrhea. Patient rates back pain 10/10. History of Present Illness The patient is a 37 year old male who presents to the Emergency Room with complaints of lower back pain that began 12 hours ago. He rates his pain a 10/ 10 in severity. He has a past medical history of pancreatitis and kidney failure with hemodialysis on MWF. The patient began to experience this back pain last night when he was trying to sleep. He woke up this morning with his continued pain and was able to go to his dialysis appointment. However, he began to experience significant nausea with intermittent episodes of vomiting, so he presented to the ER via BLS. He denies any fevers, chest pain, shortness of breath, diarrhea, leg pain, weakness, or numbness. He does not drink alcohol. He denies any new medications. He denies any past medical history of diabetes. Source of History: patient Onset: 12 hours ago Position: back (lower) Symptom Intensity: 10/10 Quality: sharp Timing: constant Associated Symptoms: + nausea, + vomiting, No fevers, No chest pain, No SOB , No weakness, No numbness Review of Systems See HPI for pertinent positives & negatives. A total of 10 systems reviewed and were otherwise negative. Past Medical & Surgical Medical Problems: (1) Anxiety (2) CAD (coronary artery disease) (3) Chronic kidney disease (CKD), stage V (4) Depression (5) Dialysis patient (6) ESRD (end stage renal disease) on dialysis (7) Fistula (8) GERD (gastroesophageal reflux disease) (9) HTN (hypertension) (10) Hyperkalemia (11) Kidney transplant failure (12) Nausea & vomiting (13) Thrombocytopenia Surgical Problems: (1) Kidney transplant status (2) Status post AV fistula LUE (3) Stented coronary artery Old medical records were reviewed. Nurse's notes were reviewed and I agree with. Family History Diabetes mellitus FATHER Hypertension FATHER MOTHER Kidney disease FATHER MOTHER Social History Smoking Status: Former Smoker Alcohol Use: none Drug Use: none Housing Status: lives alone Current/Historical Medications Scheduled Amitriptyline HCl (Amitriptyline HCl), 25 MG PO HS Aspirin (Aspir-81), 81 MG PO DAILY Bupropion Hcl (Smoking Deterre (Bupropion Hcl Sr), 1 TAB PO BID Carvedilol (Coreg), 25 MG PO BIDM Cholecalciferol (Vitamin D3), 3,000 PO DAILY Cinecalcet (Sensipar), 60 MG PO evening Clonidine Hcl (Catapres), 0.4 MG PO TID Gabapentin (Neurontin), 100 MG PO TID Hydralazine Hcl (Apresoline), 50 MG PO TID Labetalol Hcl (Labetalol Hcl), 100 MG PO BID Metoclopramide (Reglan), 10 MG PO TID Pantoprazole (Protonix), 40 MG PO BID Sertraline (Zoloft), 50 MG PO DAILY Sevelamer Carbonate (Renvela), 3,200 MG PO TIDM Trazodone Hcl (Trazodone), 50 MG PO HS Scheduled PRN Alprazolam (Xanax), 0.5 MG PO UD PRN for DIALYSIS Calcium Carbonate (Antacid) (Tums), 500 MG PO for Heartburn Allergies Coded Allergies: Minoxidil (Verified Adverse Reaction, Intermediate, priapism, 09/17/17) Prednisone (Verified Adverse Reaction, Intermediate, SEVERE GI UPSET, CONSTIPATION, 09/17/17) PER RECORDS Terazosin (Verified Adverse Reaction, Intermediate, priapism, 09/17/17) Physical Exam Vital Signs Date Time Temp Pulse Resp B/P (MAP) Pulse Ox O2 Delivery O2 Flow Rate FiO2 09/17/17 15:30 80 18 173/114 100 Nasal Cannula 2.0 09/17/17 13:30 54 18 198/154 100 Room Air 09/17/17 11:30 35.9 60 22 185/115 100 Room Air Physical Exam General: Chronically-ill appearing middle-aged male complaining of nausea and not feeling well, in no acute distress. HEENT: Normal cephalic atraumatic. Pupils are equal round and reactive to light. Extraocular movements are intact. Oropharynx is pink with moist mucous membranes. No swelling of the mouth lips or tongue. Neck: Supple with a midline trachea. No meningeal signs or stiffness, no JVD or bruits. No Stridor. Chest: Clear to auscultation bilaterally. No wheezes or rhonchi. No increased work of breathing. Heart: regular rate and rhythm. Abdomen: Soft, mildly tender to the epigastrium, nondistended without rebound guarding or rigidity. Extremities: No cyanosis clubbing or edema. No calf tenderness or assymetry. Dialysis fistula in left arm. Spine/Back. Non tender to palpation. No CVA tenderness Skin: Good turgor without rashes. Neurologic exam: Cranial nerves two through 12 are intact. Motor and sensation are intact and symmetrical throughout. Medical Decision & Procedures ER Provider Diagnostic Interpretation: Radiology results as stated below per my review and radiologist interpretation: CHEST ONE VIEW PORTABLE CLINICAL HISTORY: Chest pain and vomiting. COMPARISON STUDY: Chest radiograph November 16, 2016. FINDINGS: Lung volumes are normal. There is no pneumothorax or pleural effusion. There is no consolidation or evidence for pulmonary edema. 2 vascular stents are noted, one of which projects over the upper mediastinum. The other projects over the proximal left upper extremity. Cardiomediastinal silhouette is normal. IMPRESSION: 1. No acute cardiopulmonary findings. 2. Interval placement of 2 vascular stents. Electronically signed by: Terrance Butler M.D. 09/17/2017 1:10 PM Dictated Date/Time: 09/17/2017 12:58 PM Laboratory Results 09/17/17 13:27 Red Blood Count 4.60, Mean Corpuscular Volume 93.0, Mean Corpuscular Hemoglobin 32.2, Mean Corpuscular Hemoglobin Concent 34.6, Mean Platelet Volume 11.8, Neutrophils (%) (Auto) 83.0, Lymphocytes (%) (Auto) 9.2, Monocytes (%) (Auto) 6.6, Eosinophils (%) (Auto) 0.7, Basophils (%) (Auto) 0.3, Neutrophils # (Auto) 8.34, Lymphocytes # (Auto) 0.92, Monocytes # (Auto) 0.66, Eosinophils # (Auto) 0.07, Basophils # (Auto) 0.03 09/17/17 13:27 09/17/17 15:57 Test 09/17/17 13:27 09/17/17 15:57 White Blood Count 10.04 K/uL (4.8-10.8) Red Blood Count 4.60 M/uL (4.7-6.1) Hemoglobin 14.8 g/dL (14.0-18.0) Hematocrit 42.8 % (42-52) Mean Corpuscular Volume 93.0 fL (80-100) Mean Corpuscular Hemoglobin 32.2 pg (25-34) Mean Corpuscular Hemoglobin Concent 34.6 g/dl (32-36) Platelet Count 171 K/uL (130-400) Mean Platelet Volume 11.8 fL (7.4-10.4) Neutrophils (%) (Auto) 83.0 % Lymphocytes (%) (Auto) 9.2 % Monocytes (%) (Auto) 6.6 % Eosinophils (%) (Auto) 0.7 % Basophils (%) (Auto) 0.3 % Neutrophils # (Auto) 8.34 K/uL (1.4-6.5) Lymphocytes # (Auto) 0.92 K/uL (1.2-3.4) Monocytes # (Auto) 0.66 K/uL (0.11-0.59) Eosinophils # (Auto) 0.07 K/uL (0-0.5) Basophils # (Auto) 0.03 K/uL (0-0.2) RDW Standard Deviation 49.0 fL (36.4-46.3) RDW Coefficient of Variation 14.5 % (11.5-14.5) Immature Granulocyte % (Auto) 0.2 % Immature Granulocyte # (Auto) 0.02 K/uL (0.00-0.02) Anion Gap 10.0 mmol/L (3-11) Est Creatinine Clear Calc Drug Dose 11.8 ml/min Estimated GFR () 9.5 Estimated GFR (Non- 8.2 BUN/Creatinine Ratio 3.1 (10-20) Calcium Level 11.0 mg/dl (8.5-10.1) Total Bilirubin 0.6 mg/dl (0.2-1) Alanine Aminotransferase (ALT/SGPT) 24 U/L (12-78) Alkaline Phosphatase 150 U/L (45-117) Troponin I < 0.015 ng/ml (0-0.045) Total Protein 11.9 gm/dl (6.4-8.2) Albumin 4.9 gm/dl (3.4-5.0) Lipase 373 U/L (73-393) Direct Bilirubin 0.1 mg/dl (0-0.2) Aspartate Amino Transf (AST/SGOT) 19 U/L (15-37) Laboratory studies as stated above per my review. Medications Administered Medications (Trade) Dose Ordered Sig/Betsy Route Start Time Stop Time Status Last Admin Dose Admin Ondansetron HCl (Zofran Odt) 4 mg STK-MED ONCE .ROUTE 09/17/17 12:15 09/17/17 12:16 DC 09/17/17 12:15 4 MG Ondansetron HCl (Zofran Inj) 4 mg NOW STAT IV 09/17/17 12:35 09/17/17 12:37 DC 09/17/17 12:43 4 MG Hydromorphone HCl (Dilaudid Inj) 1 mg NOW STAT IV 09/17/17 12:35 09/17/17 12:37 DC 09/17/17 12:44 1 MG Hydromorphone HCl (Dilaudid Inj) 1 mg NOW STAT IV 09/17/17 13:58 09/17/17 13:59 DC 09/17/17 14:57 1 MG ECG Per My Interpretation Indication: vomiting Rate (beats per minute): 52 Rhythm: sinus bradycardia Findings: no acute ischemic change, other (No PVC, no evidence of peaked t- waves) Comparison ECG Date: Jul 10, 2017 Change: no significant change ED Course 1212: Past medical records reviewed. The patient was evaluated in room C7, and a complete history and physical examination were performed. 1235: Ordered Dilaudid Inj 1 mg IV, Zofran Inj 4 mg IV 1258: Ordered Dilaudid Ing 1 mg IV 1358: The patient is still having pain, but appears to be more comfortable. 1416: Upon reevaluation, the patient is resting. I discussed the results and treatment plan with the patient. He verbalized agreement of the treatment plan. The patient will be evaluated by Dr. Pelaez [facility] for further management. Medical Decision Differentials include, but are not limited to; pancreatitis, dehydration, infection, cardiac disease, and electrolyte or metabolic abnormality. This patient comes in as described above. He was placed in room C7. He has a complicated medical history and is a dialysis patient on Friday, Friday , Friday .he had his dialysis course today did not miss it. He appears uncomfortable and has nausea and abdominal pain. he has had pancreatitis but also gastroparesis before which was thought to be related to uremia according to the old records that I reviewed. He has been afebrile and has had no chest pain. IV access was established EKG was obtained which shows nothing to suggest acute coronary syndrome or arrhythmia. There is nothing to suggest hyperkalemia and has no elevation of his white count. Chest x-ray was unremarkable for any acute findings. Blood work shows renal failure. He did require additional Dilaudid IV. I do think he needs to be admitted for pain and nausea management and have consulted about the [facility] hospitalist to see him in the ER. Medication Reconcilliation Current Medication List: was personally reviewed by me Blood Pressure Screening Patient's blood pressure: Elevated blood pressure Referred to the hospitalist Consults Time Called: 1410 Consulting Physician: Dr. Keri Lujan Hospitalist Returned Call: [phone] Discussed the patient's case. The patient will be evaluated for further management. Impression Primary Impression: Nausea Additional Impressions: Epigastric abdominal pain End stage renal disease Scribe Attestation The scribe's documentation has been prepared under my direction and personally reviewed by me in its entirety. I confirm that the note above accurately reflects all work, treatment, procedures, and medical decision making performed by me. Departure Information Dispostion Being Evaluated By Hospitalist Referrals Fanny Chen M.D. (PCP) Patient Instructions My [facility] Problem Qualifiers
--- NOTE | 2017-09-17 13:12 | DIAGNOSTIC IMAGING REPORT ---
CHEST ONE VIEW PORTABLE CLINICAL HISTORY: Chest pain and vomiting. COMPARISON STUDY: Chest radiograph November 16, 2016. FINDINGS: Lung volumes are normal. There is no pneumothorax or pleural effusion. There is no consolidation or evidence for pulmonary edema. 2 vascular stents are noted, one of which projects over the upper mediastinum. The other projects over the proximal left upper extremity. Cardiomediastinal silhouette is normal. IMPRESSION: 1. No acute cardiopulmonary findings. 2. Interval placement of 2 vascular stents. Electronically signed by: Terrance Butler M.D. 09/17/2017 1:10 PM Dictated Date/Time: 09/17/2017 12:58 PM
[2017-09-17 13:41] LABS: BASO % 0.3 %; BASO ABS # 0.03 K/uL (0-0.2); EOS % 0.7 %; EOS ABS # 0.07 K/uL (0-0.5); HEMATOCRIT 42.8 % (42-52); HEMOGLOBIN 14.8 g/dL (14.0-18.0); IG# 0.02 K/uL (0.00-0.02); LYMPH % 9.2 %; LYMPH ABS # 0.92 K/uL (1.2-3.4); MEAN CORPUSCULAR HEMOGLOBIN 32.2 pg (25-34); MEAN CORPUSCULAR HGB CONC 34.6 g/dl (32-36); MEAN PLATELET VOLUME 11.8 fL (7.4-10.4); MONO % 6.6 %; MONO ABS # 0.66 K/uL (0.11-0.59); NEUT ABS # 8.34 K/uL (1.4-6.5); PLATELET COUNT 171 K/uL (130-400); RED CELL DISTRIBUTION WIDTH CV 14.5 % (11.5-14.5); WHITE BLOOD COUNT 10.04 K/uL (4.8-10.8)
[2017-09-17 14:11] LABS: ALBUMIN 4.9 gm/dl (3.4-5.0); ALKALINE PHOSPHATASE 150 U/L (45-117); ALT/SGPT 24 U/L (12-78); BLOOD UREA NITROGEN 24 mg/dl (7-18); CARBON DIOXIDE 26 mmol/L (21-32); CREATININE 7.57 mg/dl (0.60-1.40); GLUCOSE 108 mg/dl (70-99); LIPASE 373 U/L (73-393); SODIUM 128 mmol/L (136-145); TOTAL PROTEIN 11.9 gm/dl (6.4-8.2)
[2017-09-17] MEDS ORDERED: HYDR-4717 PO (14:33)
[2017-09-17] MEDS ORDERED: CLON0.2T PO (14:33)
[2017-09-17] MEDS ORDERED: METO-157 PO (14:33)
[2017-09-17] MEDS ORDERED: LABE100T23 PO (14:33)
[2017-09-17] MEDS ORDERED: ALPR-411 PO (14:33)
[2017-09-17] MEDS ORDERED: PANT40TA PO (14:33)
[2017-09-17] MEDS ORDERED: LISI-725 PO (14:33)
[2017-09-17] MEDS ORDERED: AMT25 PO (14:33)
[2017-09-17] MEDS ORDERED: SERT50TA PO (14:33)
[2017-09-17] MEDS ORDERED: TRAZ50TA35 PO (14:33)
[2017-09-17] MEDS ORDERED: CARV25TA2 PO (14:33)
[2017-09-17] MEDS ORDERED: GABA-112 PO (14:33)
[2017-09-17] MEDS ORDERED: SEVE800T7 PO (14:35)
[2017-09-17] MEDS ORDERED: ASPI-232 PO (17:18)
[2017-09-17] MEDS ORDERED: CINA60TA PO (17:18)
[2017-09-17] MEDS ORDERED: BUPR-102 PO (17:18)
[2017-09-17] MEDS ORDERED: CALC500C50 PO (17:18)
[2017-09-17] MEDS ORDERED: VTMD1000 PO (17:18)
--- NOTE | 2017-09-17 17:23 | Progress Note ---
Medicine Progress Note Date & Time of Visit: Sep 17, 2017 at 17:23. Objective Last 8 Hrs Date Time Temp Pulse Resp B/P (MAP) Pulse Ox O2 Delivery O2 Flow Rate FiO2 09/17/17 15:30 80 18 173/114 100 Nasal Cannula 2.0 09/17/17 13:30 54 18 198/154 100 Room Air 09/17/17 11:30 35.9 60 22 185/115 100 Room Air Physical Exam: General-[] Eyes-[] ENT-[] Neck-[] Lungs-[] Heart-[] Abdomen-[] Extremities-[] Neuro-[] Laboratory Results: Last 24 Hours Test 09/17/17 13:27 09/17/17 15:57 White Blood Count 10.04 K/uL Red Blood Count 4.60 M/uL Hemoglobin 14.8 g/dL Hematocrit 42.8 % Mean Corpuscular Volume 93.0 fL Mean Corpuscular Hemoglobin 32.2 pg Mean Corpuscular Hemoglobin Concent 34.6 g/dl Platelet Count 171 K/uL Mean Platelet Volume 11.8 fL Neutrophils (%) (Auto) 83.0 % Lymphocytes (%) (Auto) 9.2 % Monocytes (%) (Auto) 6.6 % Eosinophils (%) (Auto) 0.7 % Basophils (%) (Auto) 0.3 % Neutrophils # (Auto) 8.34 K/uL Lymphocytes # (Auto) 0.92 K/uL Monocytes # (Auto) 0.66 K/uL Eosinophils # (Auto) 0.07 K/uL Basophils # (Auto) 0.03 K/uL RDW Standard Deviation 49.0 fL RDW Coefficient of Variation 14.5 % Immature Granulocyte % (Auto) 0.2 % Immature Granulocyte # (Auto) 0.02 K/uL Sodium Level 128 mmol/L Potassium Level mmol/L 4.0 mmol/L Chloride Level 92 mmol/L Carbon Dioxide Level 26 mmol/L Anion Gap 10.0 mmol/L Blood Urea Nitrogen 24 mg/dl Creatinine 7.57 mg/dl Est Creatinine Clear Calc Drug Dose 11.8 ml/min Estimated GFR () 9.5 Estimated GFR (Non- 8.2 BUN/Creatinine Ratio 3.1 Random Glucose 108 mg/dl Calcium Level 11.0 mg/dl Total Bilirubin 0.6 mg/dl Direct Bilirubin mg/dl 0.1 mg/dl Aspartate Amino Transf (AST/SGOT) U/L 19 U/L Alanine Aminotransferase (ALT/SGPT) 24 U/L Alkaline Phosphatase 150 U/L Troponin I < 0.015 ng/ml Total Protein 11.9 gm/dl Albumin 4.9 gm/dl Lipase 373 U/L Assessment & Plan Current Inpatient Medications: Current Inpatient Medications Medications (Trade) Dose Ordered Sig/Betsy Route Start Time Stop Time Status Last Admin Dose Admin Amitriptyline HCl (Elavil Tab) 25 mg HS PO 09/17/17 21:00 10/17/17 20:59 UNV Aspirin (Ecotrin Tab) 81 mg DAILY PO 09/18/17 09:00 10/18/17 08:59 UNV Carvedilol (Coreg Tab) 25 mg BIDM PO 09/17/17 18:00 10/17/17 17:59 UNV Cholecalciferol (Vitamin D Tab) 3,000 inter.unit DAILY PO 09/18/17 09:00 10/18/17 08:59 UNV Gabapentin (Neurontin Cap) 100 mg TID PO 09/17/17 21:00 10/17/17 20:59 UNV Hydralazine HCl (Apresoline Tab) 50 mg TID PO 09/17/17 21:00 10/17/17 20:59 UNV Labetalol HCl (Normodyne Tab) 100 mg BID PO 09/17/17 21:00 10/17/17 20:59 UNV Metoclopramide HCl (Reglan Tab) 10 mg TID PO 09/17/17 21:00 10/17/17 20:59 UNV Pantoprazole Sodium (Protonix Tab) 40 mg BID PO 09/17/17 21:00 10/17/17 20:59 UNV Sertraline HCl (Zoloft Tab) 50 mg DAILY PO 09/18/17 09:00 10/18/17 08:59 UNV Trazodone HCl (Desyrel Tab) 50 mg HS PO 09/17/17 21:00 10/17/17 20:59 UNV Non-Formulary Medication (Bupropion Hcl (Smoking Deterre (Bupropion Hcl Sr)) 1 tab BID PO 09/17/17 21:00 10/17/17 20:59 UNV Non-Formulary Medication (Cinecalcet (Sensipar)) 60 mg evening PO 09/17/17 17:30 10/17/17 17:29 UNV Non-Formulary Medication (Clonidine Hcl (Catapres)) 0.4 mg TID PO 09/17/17 21:00 10/17/17 20:59 UNV Non-Formulary Medication (Sevelamer Carbonate (Renvela)) 3,200 mg TIDM PO 09/17/17 18:00 10/17/17 17:59 UNV Morphine Sulfate (MoRPHine SULFATE INJ) 2 mg Q4HWA PRN IV 09/17/17 17:30 10/01/17 17:29 UNV Ondansetron HCl (Zofran Inj) 4 mg Q4H PRN IV 09/17/17 17:30 10/17/17 17:29 UNV
[2017-09-17] MEDS ORDERED: ONDANSETRON INJ 2 MG/ML 2 ML VIAL IV PRN (17:30)
[2017-09-17] MEDS ORDERED: HydrALAZINE HCL 20 MG/ML VIAL IV. PRN (17:30)
[2017-09-17 18:30] VITALS: BP 169/124; PULSE 79; TEMP 36.5; O2SAT 99; Ht 167.6 cm; Wt 69.5 kg
[2017-09-17] MEDS: MoRPHine SULFATE 2 MG/ML CARP IV PRN (19:14)
[2017-09-17] MEDS ORDERED: IV FLUIDS COMPLETED PRN (19:15)
[2017-09-17] MEDS ORDERED: CLONIDINE HCL 0.2 MG TAB PO SCH (20:00)
--- NOTE | 2017-09-17 20:34 | History and Physical ---
History & Physical Date & Time of Service: Sep 17, 2017 at 19:57 Chief Complaint: Nausea And Vomiting Primary Care Physician: Fanny Chen M.D. History of Present Illness Source: patient, clinic records, hospital records 37 year old male with PMH of ESRD on HD, HTN, GERD, Thrombocytopenia presents to the Emergency Room with complaints of lower back that started last night associated with Nausea and vomiting. Pt said that the pain located in his mid lower back and radiated to both side of his back, achy like. he said that the pain is about 10/10 in severity. Then he starting to have nausea. He said that he had multiple episode of vomiting today . Last time he ate food was last night. He said that the last time he vomited was a few hours ago before coming to the hospital. Pt said that he does have hx of pancreatitis and usually when he is going to have pancreatitis, he said that he usually has the back pain first. Pt said that he does not have any abdominal pain now. He received pain med in the ER and he said that now his pain is tolerable. He said that he ate a home cook meal last night that had chicken. He said that he was the only who developed the nausea and vomiting. He denies any alcohol intake. He said that he completed his dialysis today. He had one episode of watery diarrhea today. He denies any fevers, chest pain, shortness of breath, dizziness, cough. Past Medical/Surgical History Medical Problems: (1) Anxiety Status: Chronic (2) CAD (coronary artery disease) Permanent Comment: s/p stent placement Status: Chronic (3) Chronic kidney disease (CKD), stage V Permanent Comment: history glomerulonephritis Status: Chronic (4) Depression Status: Chronic (5) Dialysis patient Status: Chronic (6) Fistula Status: Chronic (7) GERD (gastroesophageal reflux disease) Status: Chronic (8) HTN (hypertension) Status: Chronic (9) Kidney transplant failure Status: Chronic (10) Thrombocytopenia Status: Chronic Surgical Problems: (1) Kidney transplant status Permanent Comment: R 1984 and L 2012 Status: Chronic (2) Status post AV fistula LUE Permanent Comment: 10/29/16 Status: Chronic (3) Stented coronary artery Permanent Comment: stents x 2 in [place] in 2006 and 2010 Status: Chronic Family History Diabetes mellitus FATHER Hypertension FATHER MOTHER Kidney disease FATHER MOTHER Social History Smoking Status: Former Smoker Drug Use: none Immunizations History of Influenza Vaccine: Yes Influenza Vaccine Date: Apr 05, 2016 History of Tetanus Vaccine?: Yes Tetanus Immunization Date: Feb 12, 2014 History of Pneumococcal: Yes Pneumococcal Date: Feb 12, 2014 Allergies Coded Allergies: Minoxidil (Verified Adverse Reaction, Intermediate, priapism, 09/17/17) Prednisone (Verified Adverse Reaction, Intermediate, SEVERE GI UPSET, CONSTIPATION, 09/17/17) PER RECORDS Terazosin (Verified Adverse Reaction, Intermediate, priapism, 09/17/17) Home Medications Scheduled Amitriptyline HCl (Amitriptyline HCl), 25 MG PO HS Aspirin (Aspir-81), 81 MG PO DAILY Bupropion Hcl (Smoking Deterre (Bupropion Hcl Sr), 1 TAB PO BID Carvedilol (Coreg), 25 MG PO BIDM Cholecalciferol (Vitamin D3), 3,000 PO DAILY Cinecalcet (Sensipar), 60 MG PO evening Clonidine Hcl (Catapres), 0.4 MG PO TID Gabapentin (Neurontin), 100 MG PO TID Hydralazine Hcl (Apresoline), 50 MG PO TID Labetalol Hcl (Labetalol Hcl), 100 MG PO BID Metoclopramide (Reglan), 10 MG PO TID Pantoprazole (Protonix), 40 MG PO BID Sertraline (Zoloft), 50 MG PO DAILY Sevelamer Carbonate (Renvela), 3,200 MG PO TIDM Trazodone Hcl (Trazodone), 50 MG PO HS Scheduled PRN Alprazolam (Xanax), 0.5 MG PO UD PRN for DIALYSIS Calcium Carbonate (Antacid) (Tums), 500 MG PO for Heartburn Review of Systems Constitutional: No fever, No chills, No fatigue Eyes: No worsening of vision, No redness ENT: No hearing loss, No nasal symptoms, No sore throat Respiratory: No cough, No sputum, No shortness of breath, No dyspnea on exertion Cardiovascular: No chest pain, No claudication, No palpitations Abdomen: + nausea, + vomiting, No pain Musculoskeletal: + problem reported (Low back pain), No calf pain Neurologic: No memory loss, No paralysis Psychiatric: No anxiety, No substance abuse Endocrine: No excessive thirst Hematologic / Lymphatic: No swollen lymph nodes, No night sweats Integumentary: No rash, No itch Physical Exam Vital Signs Date Time Temp Pulse Resp B/P (MAP) Pulse Ox O2 Delivery O2 Flow Rate FiO2 09/17/17 18:14 94 18 141/107 96 09/17/17 17:30 96 18 168/111 98 Room Air 09/17/17 15:30 80 18 173/114 100 Nasal Cannula 2.0 09/17/17 13:30 54 18 198/154 100 Room Air 09/17/17 11:30 35.9 60 22 185/115 100 Room Air General Appearance: WD/WN, no apparent distress Head: normocephalic, atraumatic Eyes: normal inspection, PERRL ENT: normal ENT inspection Neck: no adenopathy, no JVD Respiratory/Chest: lungs clear, no respiratory distress, no accessory muscle use Cardiovascular: regular rate, rhythm, no JVD Abdomen/GI: normal bowel sounds, non tender, soft Back: normal inspection, no CVA tenderness, + muscle spasm Extremities/Musculoskelatal: no calf tenderness Neurologic/Psych: safety investigator II-XII nml as tested, no motor/sensory deficits, alert, oriented x 3 Skin: warm/dry, no rash Diagnostics Laboratory Results Results Past 24 Hours Test 09/17/17 13:27 09/17/17 15:57 Range/Units White Blood Count 10.04 4.8-10.8 K/uL Red Blood Count 4.60 4.7-6.1 M/uL Hemoglobin 14.8 14.0-18.0 g/dL Hematocrit 42.8 42-52 % Mean Corpuscular Volume 93.0 80-100 fL Mean Corpuscular Hemoglobin 32.2 25-34 pg Mean Corpuscular Hemoglobin Concent 34.6 32-36 g/dl Platelet Count 171 130-400 K/uL Mean Platelet Volume 11.8 7.4-10.4 fL Neutrophils (%) (Auto) 83.0 % Lymphocytes (%) (Auto) 9.2 % Monocytes (%) (Auto) 6.6 % Eosinophils (%) (Auto) 0.7 % Basophils (%) (Auto) 0.3 % Neutrophils # (Auto) 8.34 1.4-6.5 K/uL Lymphocytes # (Auto) 0.92 1.2-3.4 K/uL Monocytes # (Auto) 0.66 0.11-0.59 K/uL Eosinophils # (Auto) 0.07 0-0.5 K/uL Basophils # (Auto) 0.03 0-0.2 K/uL RDW Standard Deviation 49.0 36.4-46.3 fL RDW Coefficient of Variation 14.5 11.5-14.5 % Immature Granulocyte % (Auto) 0.2 % Immature Granulocyte # (Auto) 0.02 0.00-0.02 K/uL Sodium Level 128 136-145 mmol/L Potassium Level 4.0 3.5-5.1 mmol/L Chloride Level 92 98-107 mmol/L Carbon Dioxide Level 26 21-32 mmol/L Anion Gap 10.0 3-11 mmol/L Blood Urea Nitrogen 24 7-18 mg/dl Creatinine 7.57 0.60-1.40 mg/dl Est Creatinine Clear Calc Drug Dose 11.8 ml/min Estimated GFR () 9.5 Estimated GFR (Non- 8.2 BUN/Creatinine Ratio 3.1 10-20 Random Glucose 108 70-99 mg/dl Calcium Level 11.0 8.5-10.1 mg/dl Total Bilirubin 0.6 0.2-1 mg/dl Direct Bilirubin 0.1 0-0.2 mg/dl Aspartate Amino Transf (AST/SGOT) 19 15-37 U/L Alanine Aminotransferase (ALT/SGPT) 24 12-78 U/L Alkaline Phosphatase 150 45-117 U/L Troponin I < 0.015 0-0.045 ng/ml Total Protein 11.9 6.4-8.2 gm/dl Albumin 4.9 3.4-5.0 gm/dl Lipase 373 73-393 U/L Diagnostic Radiology CHEST ONE VIEW PORTABLE CLINICAL HISTORY: Chest pain and vomiting. COMPARISON STUDY: Chest radiograph November 16, 2016. FINDINGS: Lung volumes are normal. There is no pneumothorax or pleural effusion. There is no consolidation or evidence for pulmonary edema. 2 vascular stents are noted, one of which projects over the upper mediastinum. The other projects over the proximal left upper extremity. Cardiomediastinal silhouette is normal. IMPRESSION: 1. No acute cardiopulmonary findings. 2. Interval placement of 2 vascular stents. Electronically signed by: Terrance Butler M.D. 09/17/2017 1:10 PM Dictated Date/Time: 09/17/2017 12:58 PM Impression Assessment and Plan Low back Pain Possible related to musculoskeletal Doubt about pancreatitis Denies any abdominal pain Lipase normal pain improved in the ER after Dilaudid Will start on morphine prn for pain consider to add baclofen if pain continue If pain worsening, will get xray of the back NAUSEA/VOMITING Possible related to viral gastroenteritis Denies any abdominal pain Lipase and liver enzymes normal symptoms improve starting on clear liquid diet as tolerated Continue Zofran prn Will monitor electrolytes HYPONATREMIA Na on admission 128 Mostly related to poor oral intake Pt just had HD today (Dry) Will check BMP in am NO IVF since pt is ESRD ESRD ON HD Completed his dialysis today as per pt No sign of overload Seems more in the dry side Nephrology consult Monitor electrolyses GERD/GASTROPARESIS Continue PPI and reglan HTN BP elevated He did not take his BP meds today due to vomiting Continue carvedilol, clonidine, hydralazine, labetalol Recently starting on Lisinopril, will hold it for now Will add IV hydralazine prn Hx THROMBOCYTOPENIA Pt stable ANXIETY/DEPRESSION Continue Zoloft, Wellbutrin, trazodone HS Stable DVT PROPHYLAXIS SCD CODE STATUS FULL CODE DISPOSITION Will discharge in am if medically stable Resuscitation Status VTE Prophylaxis Will order VTE Prophylaxis: Yes
[2017-09-17] MEDS: CLONIDINE HCL 0.1 MG TAB PO SCH (20:46)
[2017-09-17] MEDS: LABETALOL HCL 100 MG TAB PO SCH (20:47)
[2017-09-17] MEDS: CARVEDILOL 25 MG TAB PO SCH (20:48)
[2017-09-17] MEDS: GABAPENTIN 100 MG CAP PO SCH (20:49)
[2017-09-17] MEDS: BuPROPion SR 150 MG TABCR PO SCH (20:50)
[2017-09-17] MEDS: PANTOprazole SOD 40 MG TAB PO SCH (20:51)
[2017-09-17] MEDS ORDERED: AMITRIPTYLINE HCL 25 MG TAB PO SCH (21:00)
[2017-09-17] MEDS ORDERED: TRAZODONE HCL 50 MG TAB PO SCH (21:00)
[2017-09-17 23:36] VITALS: BP 144/79; PULSE 85; TEMP 37.2; O2SAT 95
[2017-09-18] VITALS (18 sets, daily range): BP systolic 102–153; BP diastolic 65–97; PULSE 82–95; TEMP 36.6–37.6; O2SAT 90–91
[2017-09-18] MEDS: MoRPHine SULFATE 2 MG/ML CARP IV PRN ×3 (01:45→12:58)
[2017-09-18 06:13] LABS: HEMATOCRIT 39.9 % (42-52); HEMOGLOBIN 13.3 g/dL (14.0-18.0); MEAN CORPUSCULAR HEMOGLOBIN 31.7 pg (25-34); MEAN CORPUSCULAR HGB CONC 33.3 g/dl (32-36); MEAN PLATELET VOLUME 11.7 fL (7.4-10.4); PLATELET COUNT 122 K/uL (130-400); RED CELL DISTRIBUTION WIDTH CV 14.4 % (11.5-14.5); RED CELL DISTRIBUTION WIDTH SD 49.9 fL (36.4-46.3); WHITE BLOOD COUNT 6.99 K/uL (4.8-10.8)
[2017-09-18] MEDS: METOCLOPRAMIDE HCL 10 MG TAB PO SCH ×2 (06:15→12:50)
[2017-09-18 06:53] LABS: CREATININE 9.7 mg/dl (0.60-1.40); POTASSIUM 5.9 mmol/L (3.5-5.1)
[2017-09-18] MEDS ORDERED: SERTRALINE HCL 50 MG TAB PO SCH (08:00)
[2017-09-18] MEDS ORDERED: ASPIRIN 81 MG ECTAB PO SCH (08:00)
[2017-09-18] MEDS: CLONIDINE HCL 0.1 MG TAB PO SCH ×2 (08:00→14:13)
[2017-09-18] MEDS: GABAPENTIN 100 MG CAP PO SCH ×2 (08:00→14:13)
[2017-09-18] MEDS ORDERED: ALPRAZOLAM 0.5 MG TAB ONE (08:44)
[2017-09-18] MEDS ORDERED: ALPRAZOLAM 0.5 MG TAB PO PRN (08:45)
--- NOTE | 2017-09-18 09:47 | NEPHROLOGY CONSULTATION ---
DATE OF CONSULTATION: 09/18/2017 ATTENDING OF RECORD: Dr. Garcia. REASON FOR CONSULTATION: ESRD. HISTORY OF PRESENT ILLNESS: This is a 37-year-old male who dialyzes on Mondays, Wednesdays, and Fridays at the [facility]. Last dialysis treatment was Friday. The patient developed back pain, nausea and vomiting and was admitted overnight. This morning, feels better and inquiring about going home. The patient has had a chronic pancreatitis in the past, although appears this episode was more likely a viral gastroenteritis. The patient does have a propensity for high potassiums and high phosphorus levels and this morning, his potassium level is elevated. In the past, the patient was having chronic abdominal pain from too much coffee, but has quit. The patient is on the transplant list and has a potential living donor, who is being worked up currently. ROS: +n/v/back pain, no chest pain, no headaches, no rash, no diarrhea, no constipation, all other ros otherwise negative. 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 PAST SURGICAL HISTORY: Tunneled dialysis catheters, fistula placement, stent to the heart, 2 transplants one in 1984 and one in 2012. FAMILY HISTORY: Diabetes and hypertension. SOCIAL HISTORY: Former smoker. No alcohol and no drugs. He is going to be moving in with his brother. CURRENT MEDICATIONS: Aspirin 81 mg a day, vitamin D 3,000 units daily, Zoloft 50 mg a day, Reglan 10 mg with meals, Elavil 25 mg at night, trazodone 50 mg at night, Neurontin 100 mg p.o. t.i.d., hydralazine 50 mg p.o. t.i.d., labetalol 100 mg p.o. b.i.d., Protonix 40 mg p.o. b.i.d., Wellbutrin 150 mg p.o. b.i.d., and clonidine 0.4 t.i.d. PHYSICAL EXAMINATION: VITAL SIGNS: Temperature 37.2, pulse 85, respiratory rate is 18, blood pressure 144/79, satting 95% on room air. GENERAL: Awake, alert, and oriented x3. EYES: No scleral icterus. ENT: Moist mucous membranes. NECK: Supple. PULMONARY: Clear to auscultation. CARDIAC: Regular rate and rhythm. ABDOMEN: Bowel sounds positive, soft and nontender. EXTREMITIES: No clubbing, cyanosis or edema. NEUROLOGICALLY: Nonfocal. DERMATOLOGIC: No rash or ulcers noted. Access in the left upper arm fistula with good bruit and thrill. LABORATORY DATA: White count 6, H&H 13 and 39, and platelet count is 122. Sodium level is 130, potassium is 5.9, chloride is 93, bicarbonate is 29, BUN is 32, creatinine is 9.7, glucose is 92, and mag is 2.5. Lipase was 373 on admission. Troponin negative x1. Chest x-ray showed no acute cardiopulmonary findings and replacement of 2 vascular stents. IMPRESSION AND PLAN: End-stage renal disease: The patient normally dialyzes on Mondays, Wednesdays, and Fridays. Volume status is appropriate; however, potassium level is trending up and the patient does have a propensity for high potassium levels. My recommendation is a dialysis treatment today. I will defer to primary hospitalist as to whether or not to discharge the patient after dialysis. The patient symptomatically is improved, however, on a clear liquid diet. We will likely advance diet to make sure the patient is able to eat regular meals and if so and if acceptable with the hospitalist, may likely be going home this afternoon. I appreciate the consultation. COLETTE
[2017-09-18] MEDS ORDERED: CHOLECALCIFEROL 1000 INTER.UNIT TAB PO SCH (10:00)
[2017-09-18] MEDS: CARVEDILOL 25 MG TAB PO SCH (12:50)
[2017-09-18] MEDS: BuPROPion SR 150 MG TABCR PO SCH (12:51)
[2017-09-18] MEDS: PANTOprazole SOD 40 MG TAB PO SCH (12:51)
[2017-09-18] MEDS: LABETALOL HCL 100 MG TAB PO SCH (12:51)
--- NOTE | 2017-09-18 16:01 | Progress Note ---
Medicine Progress Note Date & Time of Visit: Sep 18, 2017 at 15:51. Subjective Pt was seen and examined Siting in bed with no distress Pt said that he feels fine He said that he does no have any symptoms He said that he tolerated regular diet He had HD done this morning Pt already said that he wants to go home after his repeat k result If i don't send him home, he will sign out AMA Denies any chest pain, palpitation, dizziness and SOB Objective Last 8 Hrs Date Time Temp Pulse Resp B/P (MAP) Pulse Ox O2 Delivery O2 Flow Rate FiO2 09/18/17 14:07 36.6 91 16 91 Room Air 09/18/17 12:21 36.6 91 132/97 (109) 09/18/17 12:00 84 147/91 09/18/17 11:45 85 141/92 09/18/17 11:30 83 124/87 09/18/17 11:15 85 121/77 09/18/17 11:00 86 118/84 09/18/17 10:45 87 130/89 09/18/17 10:30 90 142/92 09/18/17 10:15 86 118/70 09/18/17 10:00 89 112/77 09/18/17 09:45 92 118/77 09/18/17 09:30 95 133/89 09/18/17 09:15 87 125/86 09/18/17 08:59 36.9 89 153/93 (113) 09/18/17 08:00 91 Room Air Physical Exam: General- No acute distress Head- atraumatic Eyes- PERRL, EOMI ENT- oropharynx clear Neck- supple, no JVD Lungs- clear to auscultation Heart- regular rhythm Abdomen- normal bowel sounds, soft Extremities-no calf tenderness Neuro- alert, oriented x 3; PERRL, EOMI; no facial palsy Skin- warm & dry Laboratory Results: Last 24 Hours Test 09/17/17 15:57 09/18/17 05:45 09/18/17 15:00 Potassium Level 4.0 mmol/L 5.9 mmol/L 4.7 mmol/L Direct Bilirubin 0.1 mg/dl Aspartate Amino Transf (AST/SGOT) 19 U/L White Blood Count 6.99 K/uL Red Blood Count 4.20 M/uL Hemoglobin 13.3 g/dL Hematocrit 39.9 % Mean Corpuscular Volume 95.0 fL Mean Corpuscular Hemoglobin 31.7 pg Mean Corpuscular Hemoglobin Concent 33.3 g/dl RDW Standard Deviation 49.9 fL RDW Coefficient of Variation 14.4 % Platelet Count 122 K/uL Mean Platelet Volume 11.7 fL Sodium Level 130 mmol/L Chloride Level 93 mmol/L Carbon Dioxide Level 29 mmol/L Anion Gap 8.0 mmol/L Blood Urea Nitrogen 32 mg/dl Creatinine 9.70 mg/dl Est Creatinine Clear Calc Drug Dose 9.2 ml/min Estimated GFR () 7.0 Estimated GFR (Non- 6.1 BUN/Creatinine Ratio 3.3 Random Glucose 92 mg/dl Calcium Level 10.0 mg/dl Magnesium Level 2.5 mg/dl Assessment & Plan Low back Pain Possible related to musculoskeletal Doubt about pancreatitis Denies any abdominal pain Lipase normal pain improved in the ER after Dilaudid Will start on morphine prn for pain consider to add baclofen if pain continue If pain worsening, will get xray of the back 09/18 Clinically improved Denies any pain NAUSEA/VOMITING Possible related to viral gastroenteritis Denies any abdominal pain Lipase and liver enzymes normal symptoms improve Tolerated regular diet (Nephro) Resolved HYPONATREMIA Na on admission 130 Mostly related to poor oral intake Had HD done this morning Continue monitor BMP HYPERKALEMIA K 5.9 this morning Had HD done today Repeat K 4.7 Continue monitor BMP ESRD ON HD Completed his dialysis today as per pt No sign of overload HD done this morning K 5.9 this morning Next HD tomorrow GERD/GASTROPARESIS Continue PPI and reglan Stable HTN BP elevated on admission He did not take his BP meds today due to vomiting Continue carvedilol, clonidine, hydralazine, labetalol BP stable Hx THROMBOCYTOPENIA Pt stable ANXIETY/DEPRESSION Continue Zoloft, Wellbutrin, trazodone HS Stable DVT PROPHYLAXIS SCD CODE STATUS FULL CODE DISPOSITION Discharge home today Current Inpatient Medications: Current Inpatient Medications Medications (Trade) Dose Ordered Sig/Betsy Route Start Time Stop Time Status Last Admin Dose Admin Amitriptyline HCl (Elavil Tab) 25 mg HS PO 09/17/17 21:00 10/17/17 20:59 09/17/17 20:51 25 MG Aspirin (Ecotrin Tab) 81 mg DAILY PO 09/18/17 08:00 10/18/17 08:59 Carvedilol (Coreg Tab) 25 mg BIDM PO 09/17/17 18:00 10/17/17 17:59 09/18/17 12:50 25 MG Cholecalciferol (Vitamin D Tab) 3,000 inter.unit DAILY PO 09/18/17 10:00 10/18/17 09:59 09/18/17 12:50 3,000 INTER.UNIT Gabapentin (Neurontin Cap) 100 mg TID PO 09/17/17 20:00 10/17/17 20:59 09/18/17 14:13 100 MG Hydralazine HCl (Apresoline Tab) 50 mg TID PO 09/17/17 20:00 10/17/17 20:59 09/18/17 14:12 50 MG Labetalol HCl (Normodyne Tab) 100 mg BID PO 09/17/17 20:00 10/17/17 20:59 09/18/17 12:51 100 MG Metoclopramide HCl (Reglan Tab) 10 mg AC PO 09/18/17 06:30 10/18/17 06:29 09/18/17 12:50 10 MG Pantoprazole Sodium (Protonix Tab) 40 mg BID PO 09/17/17 20:00 10/17/17 20:59 09/18/17 12:51 40 MG Sertraline HCl (Zoloft Tab) 50 mg DAILY PO 09/18/17 08:00 10/18/17 08:59 09/18/17 12:51 50 MG Trazodone HCl (Desyrel Tab) 50 mg HS PO 09/17/17 21:00 10/17/17 20:59 09/17/17 20:47 50 MG Bupropion HCl (Wellbutrin-Sr Tab) 150 mg BID PO 09/17/17 20:00 10/17/17 20:59 09/18/17 12:51 150 MG Miscellaneous Information (Order Awaiting Action) 1 ea QS PO 09/17/17 19:00 10/17/17 18:59 Miscellaneous Information (Order Awaiting Action) 1 ea QS PO 09/17/17 19:00 10/17/17 18:59 Morphine Sulfate (MoRPHine SULFATE INJ) 2 mg Q4HWA PRN IV 09/17/17 17:30 10/01/17 17:29 09/18/17 12:58 2 MG Ondansetron HCl (Zofran Inj) 4 mg Q4H PRN IV 09/17/17 17:30 10/17/17 17:29 Hydralazine HCl (HydrALAZINE INJ) 10 mg Q4 PRN IV. 09/17/17 17:30 10/17/17 17:29 Clonidine HCl (Catapres Tab) 0.4 mg TID PO 09/17/17 20:00 10/17/17 19:59 09/18/17 14:13 0.4 MG Miscellaneous (Iv Fluids Completed) 1 ea PRN PRN N/A 09/17/17 19:15 09/17/18 19:14 Alprazolam (Xanax Tab) 0.5 mg DAILY PRN PO 09/18/17 08:45 10/18/17 08:44
--- NOTE | 2017-09-18 16:14 | Discharge Instructions ---
Discharge Instructions Date of Service Sep 18, 2017. Admission Reason for Admission: Nausea And Vomiting Discharge Discharge Diagnosis / Problem: Nausea/Vomiting/ Hyperkalemia/ ESRD on CKD 3 Discharge Goals Goal(s): Decrease discomfort, Improve function, Improve disease control Activity Recommendations Activity Limitations: resume your previous activity (as tolerated) . Instructions / Follow-Up Instructions / Follow-Up Follow up with your primary care provider Dr. Clark(Dr. Ryan Colleague) on @ 11:05 Follow up with your nephrology Next dialysis tomorrow Check BMP to monitor electrolytes Current Hospital Diet Patient's current hospital diet: Renal Diet Discharge Diet Recommended Diet: Renal Diet Pending Studies Studies pending at discharge: no Medical Emergencies . Who to Call and When: Medical Emergencies: If at any time you feel your situation is an emergency, please call 911 immediately. . Non-Emergent Contact Non-Emergency issues call your: Primary Care Provider Call Non-Emergent contact if: you have any medication questions . . "Provider Documentation" section prepared by Jori Garcia. .
--- NOTE | 2017-09-21 07:30 | Discharge Summary ---
Discharge Summary Date of Service Sep 21, 2017. Discharge Summary Admission Date: Sep 17, 2017 at 17:07 Discharge Date: Sep 18, 2017 Discharge Disposition: Home Principal Diagnosis: NAUSEA/VOMITING Secondary Diagnoses/Problems: Low back Pain HYPONATREMIA HYPERKALEMIA ESRD ON HD HTN GERD/GASTROPARESIS THROMBOCYTOPENIA ANXIETY DEPRESSION Procedures: CHEST ONE VIEW PORTABLE CLINICAL HISTORY: Chest pain and vomiting. COMPARISON STUDY: Chest radiograph November 16, 2016. FINDINGS: Lung volumes are normal. There is no pneumothorax or pleural effusion. There is no consolidation or evidence for pulmonary edema. 2 vascular stents are noted, one of which projects over the upper mediastinum. The other projects over the proximal left upper extremity. Cardiomediastinal silhouette is normal. IMPRESSION: 1. No acute cardiopulmonary findings. 2. Interval placement of 2 vascular stents. Electronically signed by: Terrance Butler M.D. 09/17/2017 1:10 PM Dictated Date/Time: 09/17/2017 12:58 PM Medication Reconciliation Continued Medications: Alprazolam (Xanax) 0.5 Mg Tab 0.5 MG PO UD PRN for DIALYSIS Amitriptyline HCl (Amitriptyline HCl) 25 Mg Tab 25 MG PO HS Aspirin (Aspir-81) 81 Mg Tab 81 MG PO DAILY, TAB Bupropion Hcl (Smoking Deterre (Bupropion Hcl Sr) 150 Mg Tab 1 TAB PO BID for 30 Days, #60 TAB Calcium Carbonate (Antacid) (Tums) 500 Mg Chw 500 MG PO PRN for Heartburn, TAB Carvedilol (Coreg) 25 Mg Tab 25 MG PO BIDM Cholecalciferol (Vitamin D3) 1,000 Inter.unit Tab 3000 PO DAILY Cinecalcet (Sensipar) 60 Mg Tab 60 MG PO evening, TAB Clonidine Hcl (Catapres) 0.2 Mg Tab 0.4 MG PO TID TWO 0.2 MG TABLETS Gabapentin (Neurontin) 100 Mg Cap 100 MG PO TID Hydralazine Hcl (Apresoline) 50 Mg Tab 50 MG PO TID Labetalol Hcl (Labetalol Hcl) 100 Mg Tab 100 MG PO BID Metoclopramide (Reglan) 10 Mg Tab 10 MG PO TID 30 minutes before meals Pantoprazole (Protonix) 40 Mg Tab 40 MG PO BID Sertraline (Zoloft) 50 Mg Tab 50 MG PO DAILY Sevelamer Carbonate (Renvela) 800 Mg Tab 3200 MG PO TIDM FOUR 800 MG TABLETS TID WITH MEALS, PER SURESCRIPTS Trazodone Hcl (Trazodone) 50 Mg Tab 50 MG PO HS Admission Information HPI (per Admitting provider): 37 year old male with PMH of ESRD on HD, HTN, GERD, Thrombocytopenia presents to the Emergency Room with complaints of lower back that started last night associated with Nausea and vomiting. Pt said that the pain located in his mid lower back and radiated to both side of his back, achy like. he said that the pain is about 10/10 in severity. Then he starting to have nausea. He said that he had multiple episode of vomiting today . Last time he ate food was last night. He said that the last time he vomited was a few hours ago before coming to the hospital. Pt said that he does have hx of pancreatitis and usually when he is going to have pancreatitis, he said that he usually has the back pain first. Pt said that he does not have any abdominal pain now. He received pain med in the ER and he said that now his pain is tolerable. He said that he ate a home cook meal last night that had chicken. He said that he was the only who developed the nausea and vomiting. He denies any alcohol intake. He said that he completed his dialysis today. He had one episode of watery diarrhea today. He denies any fevers, chest pain, shortness of breath, dizziness, cough. 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, no motor/sensory deficits, alert , oriented x 3 Skin: warm/dry, no rash Hospital Course Low back Pain Possible related to musculoskeletal Doubt about pancreatitis Denies any abdominal pain Lipase normal pain improved in the ER after Dilaudid Will start on morphine prn for pain consider to add baclofen if pain continue If pain worsening, will get xray of the back 09/18 Clinically improved Denies any pain NAUSEA/VOMITING Possible related to viral gastroenteritis Denies any abdominal pain Lipase and liver enzymes normal symptoms improve Tolerated regular diet (Nephro) Resolved HYPONATREMIA Na on admission 130 Mostly related to poor oral intake Had HD done this morning Continue monitor BMP HYPERKALEMIA K 5.9 this morning Had HD done today Repeat K 4.7 Continue monitor BMP ESRD ON HD Completed his dialysis today as per pt No sign of overload HD done this morning K 5.9 this morning Next HD tomorrow GERD/GASTROPARESIS Continue PPI and reglan Stable HTN BP elevated on admission He did not take his BP meds today due to vomiting Continue carvedilol, clonidine, hydralazine, labetalol BP stable Hx THROMBOCYTOPENIA Pt stable ANXIETY/DEPRESSION Continue Zoloft, Wellbutrin, trazodone HS Stable DVT PROPHYLAXIS SCD CODE STATUS FULL CODE DISPOSITION Discharge home today Total time spent on discharge = 35 minutes This includes examination of the patient, discharge planning, medication reconciliation, and communication with other providers. Discharge Instructions Discharge Instructions Date of Service Sep 18, 2017. Admission Reason for Admission: Nausea And Vomiting Discharge Discharge Diagnosis / Problem: Nausea/Vomiting/ Hyperkalemia/ ESRD on CKD 3 Discharge Goals Goal(s): Decrease discomfort, Improve function, Improve disease control Activity Recommendations Activity Limitations: resume your previous activity (as tolerated) . Instructions / Follow-Up Instructions / Follow-Up Follow up with your primary care provider Dr. Clark(Dr. Ryan Colleague) on @ 11:05 Follow up with your nephrology Next dialysis tomorrow Check BMP to monitor electrolytes Current Hospital Diet Patient's current hospital diet: Renal Diet Discharge Diet Recommended Diet: Renal Diet Pending Studies Studies pending at discharge: no Medical Emergencies . Who to Call and When: Medical Emergencies: If at any time you feel your situation is an emergency, please call 911 immediately. . Non-Emergent Contact Non-Emergency issues call your: Primary Care Provider Call Non-Emergent contact if: you have any medication questions . . "Provider Documentation" section prepared by Jori Garcia. .
== END 2017-09-18 17:08 | disposition home or self-care (01) ==
LOC: EDBD 11:30 → C.EDC 11:32 → C.4E 17:07 → CANRESERV 17:30 → ENRESERV 17:30
PROVIDERS: ADMIT Internal Medicine; ATTEND Internal Medicine
DX: R11.2 Nausea with vomiting, unspecified (principal); R10.13 Epigastric pain; M54.5 Low back pain; E87.1 Hypo-osmolality and hyponatremia; E87.5 Hyperkalemia; I12.0 Hypertensive chronic kidney disease with stage 5 chronic kidney disease or end stage renal disease; N18.6 End stage renal disease; K21.9 Gastro-esophageal reflux disease without esophagitis; K31.84 Gastroparesis; I25.10 Atherosclerotic heart disease of native coronary artery without angina pectoris; D69.6 Thrombocytopenia, unspecified; F32.9 Major depressive disorder, single episode, unspecified; I51.9 Heart disease, unspecified; Z99.2 Dependence on renal dialysis; Z79.82 Long term (current) use of aspirin; Z87.891 Personal history of nicotine dependence; Z94.0 Kidney transplant status; Z83.3 Family history of diabetes mellitus; Z82.49 Family history of ischemic heart disease and other diseases of the circulatory system

== ENCOUNTER 2017-09-22 06:32 | Emergency (ER) | payer OTHER ==
[~2017-09-22] VITALS: Ht 167.6 cm; Wt 70.0 kg
[~2017-09-22 06:32] MED LIST changes: -APR50 PO; +ASPI-232 PO; -ASPI81TA28 PO; +BUPR-102 PO; -BUPR150T7 PO; -CALC500C3 PO; +CALC500C50 PO; +CARV25TA2 PO; -CHOL1000 PO; -CINA0.42 PO; +CINA60TA PO; -CRG25 PO; +GABA-112 PO; +HYDR-4717 PO; -NRN100 PO; -SEVE1TAB PO; +SEVE800T7 PO; +VTMD1000 PO
[2017-09-22 06:37] VITALS: TEMP 36.5; Ht 167.6 cm; Wt 70.0 kg
[2017-09-22] MEDS ORDERED: ONDANSETRON INJ 2 MG/ML 2 ML VIAL IV STA (06:51)
[2017-09-22] MEDS ORDERED: SODIUM CHLORIDE 0.9% 1000ML 1,000 ML IV STA (06:51)
[2017-09-22] MEDS ORDERED: MoRPHine SULFATE 4 MG/ML 1 ML CARP\\VIAL IV STA (06:51)
--- NOTE | 2017-09-22 07:13 | EMERGENCY ROOM VISIT NOTE ---
History Report prepared by Shaggy: Jakob Maldonado Under the Supervision of: Dr. Shavonne Hall M.D. First contact with patient: 06:39 Chief Complaint: ABDOMINAL PAIN Stated Complaint: ABDOMINAL/BACK PAIN Nursing Triage Summary: pt states was here last week and dx with pancreatitis, pt states yesterday strated with abd pain and n/v, today while at dialysis for 50 min the pain got to be to bad and started vomiting again. History of Present Illness The patient is a 37 year old male who presents to the Emergency Room with complaints of worsening abdominal pain starting around 2200 last night. The patient states that he is also having back pain, nausea, and vomiting. He notes that he had similar pain last week, and he was admitted to the hospital, though he felt better and was discharged, and now the pain is back. The patient states that he had dialysis this morning prior to arrival. He has a history of gastroenteritis, pancreatitis, and gastroparesis, and he states that he is not on any pain medications at home. The patient states that his last bowel movement was two days ago. Source of History: patient Onset: 2200 last night Position: abdomen Timing: worsening Associated Symptoms: + nausea, + vomiting, + back pain Review of Systems See HPI for pertinent positives & negatives. A total of 10 systems reviewed and were otherwise negative. Past Medical & Surgical Medical Problems: (1) Anxiety (2) CAD (coronary artery disease) (3) Chronic kidney disease (CKD), stage V (4) Depression (5) Dialysis patient (6) ESRD (end stage renal disease) on dialysis (7) Fistula (8) GERD (gastroesophageal reflux disease) (9) HTN (hypertension) (10) Hyperkalemia (11) Kidney transplant failure (12) Nausea & vomiting (13) Thrombocytopenia Surgical Problems: (1) Kidney transplant status (2) Status post AV fistula LUE (3) Stented coronary artery Family History Diabetes mellitus FATHER Hypertension FATHER MOTHER Kidney disease FATHER MOTHER Social History Smoking Status: Never Smoker Alcohol Use: none Drug Use: none Housing Status: lives alone Current/Historical Medications Scheduled Amitriptyline HCl (Amitriptyline HCl), 25 MG PO HS Aspirin (Aspir-81), 81 MG PO DAILY Bupropion Hcl (Smoking [place] (Bupropion Hcl Sr), 1 TAB PO BID Carvedilol (Coreg), 25 MG PO BIDM Cholecalciferol (Vitamin D3), 3,000 PO DAILY Cinecalcet (Sensipar), 60 MG PO evening Clonidine Hcl (Catapres), 0.4 MG PO TID Gabapentin (Neurontin), 100 MG PO TID Hydralazine Hcl (Apresoline), 50 MG PO TID Labetalol Hcl (Labetalol Hcl), 100 MG PO BID Metoclopramide (Reglan), 10 MG PO TID Pantoprazole (Protonix), 40 MG PO BID Sertraline (Zoloft), 50 MG PO DAILY Sevelamer Carbonate (Renvela), 3,200 MG PO TIDM Trazodone Hcl (Trazodone), 50 MG PO HS Scheduled PRN Alprazolam (Xanax), 0.5 MG PO UD PRN for DIALYSIS Calcium Carbonate (Antacid) (Tums), 500 MG PO for Heartburn Allergies Coded Allergies: Minoxidil (Verified Adverse Reaction, Intermediate, priapism, 09/22/17) Prednisone (Verified Adverse Reaction, Intermediate, SEVERE GI UPSET, CONSTIPATION, 09/22/17) PER RECORDS Terazosin (Verified Adverse Reaction, Intermediate, priapism, 09/22/17) Physical Exam Vital Signs Date Time Temp Pulse Resp B/P (MAP) Pulse Ox O2 Delivery O2 Flow Rate FiO2 09/22/17 10:05 83 18 103/73 97 09/22/17 08:42 95 18 97/73 95 Room Air 09/22/17 06:38 68 09/22/17 06:37 36.5 69 20 129/93 98 Room Air Physical Exam Vital signs reviewed. General: chronically ill-appearing male, in some discomfort. HEENT: No scleral icterus, PERRLA, neck supple. Atraumatic. Cardiovascular: Regular rate and rhythm, no extra sounds. Pulmonary: Clear to auscultation bilaterally, normal work of breathing. Abdomen: Diffuse abdominal tenderness. Soft, nondistended, positive bowel sounds. Musculoskeletal: Atraumatic, no peripheral edema. Neurologic: Patient awake alert and oriented x 3 Skin: Warm, dry, no rash Medical Decision & Procedures ER Provider Diagnostic Interpretation: Radiology results as stated below per my review and radiologist interpretation: ABDOMEN 2VIEW W/PA CHEST RTN CLINICAL HISTORY: 37 years-old Male presenting with abdominal pain diffusely. TECHNIQUE: PA view of the chest and supine and upright views of the abdomen were obtained. COMPARISON: 09/17/[address] of abdomen pelvis from 03/19/2017. FINDINGS: Vascular stent projects over the region of the left subclavian/brachiocephalic vein. Cardiomediastinal silhouette normal. Minimal fluid in the right minor fissure. No focal infiltrate. No pneumothorax. Nonobstructive bowel gas pattern. Moderate stool burden. No gross pneumoperitoneum. Calcification in the right lower quadrant correlates with the site of prior renal transplant. No calcification over the known left lower quadrant renal transplant. Right pelvic phlebolith. Osseous structures normal. IMPRESSION: 1. No acute cardiopulmonary disease. 2. Moderate stool burden suggest constipation. No bowel obstruction or free air. Electronically signed by: Anrde Laird M.D. 09/22/2017 8:04 AM Dictated Date/Time: 09/22/2017 7:58 AM Laboratory Results 09/22/17 07:05 Red Blood Count 3.90, Mean Corpuscular Volume 93.1, Mean Corpuscular Hemoglobin 31.3, Mean Corpuscular Hemoglobin Concent 33.6, Mean Platelet Volume 10.9, Neutrophils (%) (Auto) 82.9, Lymphocytes (%) (Auto) 11.1, Monocytes (%) (Auto) 5.5, Eosinophils (%) (Auto) 0.4, Basophils (%) (Auto) 0.0, Neutrophils # (Auto) 6.06, Lymphocytes # (Auto) 0.81, Monocytes # (Auto) 0.40, Eosinophils # (Auto) 0.03, Basophils # (Auto) 0.00 09/22/17 07:05 Test 09/22/17 07:05 09/22/17 07:28 White Blood Count 7.31 K/uL (4.8-10.8) Red Blood Count 3.90 M/uL (4.7-6.1) Hemoglobin 12.2 g/dL (14.0-18.0) Hematocrit 36.3 % (42-52) Mean Corpuscular Volume 93.1 fL (80-100) Mean Corpuscular Hemoglobin 31.3 pg (25-34) Mean Corpuscular Hemoglobin Concent 33.6 g/dl (32-36) Platelet Count 122 K/uL (130-400) Mean Platelet Volume 10.9 fL (7.4-10.4) Neutrophils (%) (Auto) 82.9 % Lymphocytes (%) (Auto) 11.1 % Monocytes (%) (Auto) 5.5 % Eosinophils (%) (Auto) 0.4 % Basophils (%) (Auto) 0.0 % Neutrophils # (Auto) 6.06 K/uL (1.4-6.5) Lymphocytes # (Auto) 0.81 K/uL (1.2-3.4) Monocytes # (Auto) 0.40 K/uL (0.11-0.59) Eosinophils # (Auto) 0.03 K/uL (0-0.5) Basophils # (Auto) 0.00 K/uL (0-0.2) RDW Standard Deviation 47.8 fL (36.4-46.3) RDW Coefficient of Variation 14.3 % (11.5-14.5) Immature Granulocyte % (Auto) 0.1 % Immature Granulocyte # (Auto) 0.01 K/uL (0.00-0.02) Est Creatinine Clear Calc Drug Dose 8.8 ml/min Estimated GFR () 6.6 Estimated GFR (Non- 5.7 BUN/Creatinine Ratio 3.7 (10-20) Calcium Level 7.9 mg/dl (8.5-10.1) Magnesium Level 2.4 mg/dl (1.8-2.4) Total Bilirubin 0.5 mg/dl (0.2-1) Direct Bilirubin 0.1 mg/dl (0-0.2) Aspartate Amino Transf (AST/SGOT) 24 U/L (15-37) Alanine Aminotransferase (ALT/SGPT) 26 U/L (12-78) Alkaline Phosphatase 112 U/L (45-117) Total Protein 8.7 gm/dl (6.4-8.2) Albumin 3.5 gm/dl (3.4-5.0) Lipase 290 U/L (73-393) Bedside Hemoglobin 13.6 g/dl (14.0-18.0) Bedside Hematocrit 40 % (42-52) Bedside Sodium 136 mEq/L (135-144) Bedside Potassium 4.7 mEq/L (3.3-5.0) Bedside Chloride 94 mEq/L (101-112) Bedside Total CO2 29 mEq/l (24-31) Anion Gap 18.0 mmol/L (16-25) Bedside Blood Urea Nitrogen 37 mg/dl (7-18) Bedside Creatinine 10.5 mg/dl (0.6-1.3) Bedside Glucose (other) 102 mg/dl (70-99) Bedside Ionized Calcium (Aishwarya) 0.98 mmol/l (1.12-1.32) Laboratory results per my review. Medications Administered Medications (Trade) Dose Ordered Sig/Betsy Route Start Time Stop Time Status Last Admin Dose Admin Sodium Chloride 1,000 ml @ 125 mls/hr Q8H STAT IV 09/22/17 06:51 09/22/17 10:48 DC 09/22/17 07:24 125 MLS/HR Morphine Sulfate (MoRPHine SULFATE INJ) 4 mg NOW STAT IV 09/22/17 06:51 09/22/17 06:53 DC 09/22/17 07:24 4 MG Ondansetron HCl (Zofran Inj) 4 mg NOW STAT IV 09/22/17 06:51 09/22/17 06:53 DC 09/22/17 07:24 4 MG ECG Per My Interpretation Indication: abdominal pain Rate (beats per minute): 81 Rhythm: normal sinus Findings: no acute ischemic change, no ectopy ED Course 0650: Past medical records reviewed. The patient was evaluated in room A3. A complete history and physical examination was performed. 0651: Zofran 4mg IV, Morphine Sulfate 4mg IV, Sodium Chloride 1000 ml @ 125 mls/ hr IV 0902: Upon reevaluation, the patient appeared to have improvement of his symptoms. I discussed findings with him. He verbalized agreement of the treatment plan. He was discharged home. 0906: Dulcolax 10mg DC Medical Decision Differential diagnosis: Etiologies such as appendicitis, diverticulitis, PUD, biliary pathology, UTI, pancreatitis, obstruction, mesenteric ischemia, aortic pathology, infections, inflammatory bowel disease, renal colic, as well as others were entertained. This patient was evaluated and appeared to be in no significant distress. IV access was obtained and laboratory work was drawn. The patient was placed on the laboratory monitor and found to be in a normal sinus rhythm. He was hydrated gently with IV fluids for hypotension status post dialysis. Patient did request pain medication on multiple occasions. He was given IV morphine and Zofran. Abdominal x-rays are consistent with fecal retention. Laboratory work is fairly unrevealing. I do not suspect an acute abdomen. The patient was informed of the findings. He did request additional pain medication. He was informed that the narcotics slow the bowel transit. Patient was discharged with magnesium citrate to be used as directed. He was encouraged to use MiraLAX as needed for a bowel movement thereafter. He will follow-up with his physician this week for reevaluation and return to the ER for worsening symptoms or any medical concerns. Medication Reconcilliation Current Medication List: was personally reviewed by me Blood Pressure Screening Patient's blood pressure: Normal blood pressure Impression Primary Impression: Constipation Scribe Attestation The scribe's documentation has been prepared under my direction and personally reviewed by me in its entirety. I confirm that the note above accurately reflects all work, treatment, procedures, and medical decision making performed by me. Departure Information Dispostion Home / Self-Care Referrals Fanny Chen M.D. (PCP) Forms Call Back Authorization, HOME CARE DOCUMENTATION FORM, IMPORTANT VISIT INFORMATION Patient Instructions My [facility] Additional Instructions Diagnosis: Constipation Increase the fiber in your diet. Magnesium citrate, one half bottle upon return home. You may repeat the second half the bottle this afternoon if no BM. MiraLAX 1 capful daily as needed for bowel movements. Follow-up with your physician this week for reevaluation. Return to the ER for worsening of symptoms or any medical concerns.
[2017-09-22 07:26] LABS: EOS % 0.4 %; EOS ABS # 0.03 K/uL (0-0.5); HEMATOCRIT 36.3 % (42-52); HEMOGLOBIN 12.2 g/dL (14.0-18.0); IG# 0.01 K/uL (0.00-0.02); LYMPH % 11.1 %; LYMPH ABS # 0.81 K/uL (1.2-3.4); MEAN CELL VOLUME 93.1 fL (80-100); MEAN CORPUSCULAR HEMOGLOBIN 31.3 pg (25-34); MEAN CORPUSCULAR HGB CONC 33.6 g/dl (32-36); MEAN PLATELET VOLUME 10.9 fL (7.4-10.4); MONO % 5.5 %; NEUT % 82.9 %; NEUT ABS # 6.06 K/uL (1.4-6.5); PLATELET COUNT 122 K/uL (130-400); RED CELL DISTRIBUTION WIDTH CV 14.3 % (11.5-14.5); RED CELL DISTRIBUTION WIDTH SD 47.8 fL (36.4-46.3); WHITE BLOOD COUNT 7.31 K/uL (4.8-10.8)
[2017-09-22 07:41] LABS: ISTAT CREATININE 10.5 mg/dl (0.6-1.3); ISTAT IONIZED CALCIUM 0.98 mmol/l (1.12-1.32); ISTAT POTASSIUM 4.7 mEq/L (3.3-5.0)
[2017-09-22 07:54] LABS: ALBUMIN 3.5 gm/dl (3.4-5.0); CALCIUM 7.9 mg/dl (8.5-10.1); CREATININE 10.2 mg/dl (0.60-1.40); POTASSIUM 4.5 mmol/L (3.5-5.1); TOTAL PROTEIN 8.7 gm/dl (6.4-8.2)
--- NOTE | 2017-09-22 08:05 | DIAGNOSTIC IMAGING REPORT ---
ABDOMEN 2VIEW W/PA CHEST RTN CLINICAL HISTORY: 37 years-old Male presenting with abdominal pain diffusely. TECHNIQUE: PA view of the chest and supine and upright views of the abdomen were obtained. COMPARISON: 09/17/[address] of abdomen pelvis from 03/19/2017. FINDINGS: Vascular stent projects over the region of the left subclavian/brachiocephalic vein. Cardiomediastinal silhouette normal. Minimal fluid in the right minor fissure. No focal infiltrate. No pneumothorax. Nonobstructive bowel gas pattern. Moderate stool burden. No gross pneumoperitoneum. Calcification in the right lower quadrant correlates with the site of prior renal transplant. No calcification over the known left lower quadrant renal transplant. Right pelvic phlebolith. Osseous structures normal. IMPRESSION: 1. No acute cardiopulmonary disease. 2. Moderate stool burden suggest constipation. No bowel obstruction or free air. Electronically signed by: Andre Laird M.D. 09/22/2017 8:04 AM Dictated Date/Time: 09/22/2017 7:58 AM
[2017-09-22] MEDS: BISACODYL 10 MG SUPP PR STA ×2 (09:32→10:12)
[2017-09-22 10:05] VITALS: BP 103/73; PULSE 83; O2SAT 97
== END 2017-09-22 09:58 | disposition home or self-care (01) ==
LOC: EDBD 06:32 → C.EDA 06:33
DX: K59.00 Constipation, unspecified (principal); R10.9 Unspecified abdominal pain; M54.9 Dorsalgia, unspecified; R11.2 Nausea with vomiting, unspecified; I12.0 Hypertensive chronic kidney disease with stage 5 chronic kidney disease or end stage renal disease; N18.6 End stage renal disease; Z99.2 Dependence on renal dialysis; F32.9 Major depressive disorder, single episode, unspecified; K21.9 Gastro-esophageal reflux disease without esophagitis; Z79.82 Long term (current) use of aspirin; Z79.899 Other long term (current) drug therapy; Z88.8 Allergy status to other drugs, medicaments and biological substances; Z82.49 Family history of ischemic heart disease and other diseases of the circulatory system; Z83.3 Family history of diabetes mellitus; Z84.1 Family history of disorders of kidney and ureter; Z98.61 Coronary angioplasty status

== ENCOUNTER 2017-10-14 10:01 | Inpatient (IN) | payer OTHER ==
[~2017-10-14] VITALS: Ht 167.6 cm; Wt 64.0 kg
[2017-10-14] VITALS (9 sets, daily range): BP systolic 112–173; BP diastolic 44–136; PULSE 82–104; TEMP 36.8–37.1; O2SAT 92–100; Ht 167.6 cm; Wt 64.0 kg
[2017-10-14] MEDS ORDERED: FENTANYL CITRATE INJ 50 MCG/1 ML 2 ML VIAL IV STA ×2 (10:21→11:41)
[2017-10-14] MEDS ORDERED: DiphenhydrAMINE HCL 50 MG/ML VIAL IV STA ×2 (10:23→13:32)
[2017-10-14] MEDS ORDERED: PROCHLORPERAZINE 5 MG/ML 2 ML VIAL IV STA (10:23)
[2017-10-14] MEDS ORDERED: DICYCLOMINE HCL 20 MG TAB PO STA (10:23)
[2017-10-14 11:53] LABS: BASO % 0.1 %; BASO ABS # 0.01 K/uL (0-0.2); HEMATOCRIT 44.7 % (42-52); HEMOGLOBIN 15.6 g/dL (14.0-18.0); IG# 0.04 K/uL (0.00-0.02); LYMPH % 7.5 %; MEAN CELL VOLUME 91.8 fL (80-100); MEAN CORPUSCULAR HGB CONC 34.9 g/dl (32-36); MEAN PLATELET VOLUME 11.2 fL (7.4-10.4); MONO % 7.9 %; MONO ABS # 1.05 K/uL (0.11-0.59); NEUT % 84.2 %; NEUT ABS # 11.18 K/uL (1.4-6.5); PLATELET COUNT 186 K/uL (130-400); RED CELL DISTRIBUTION WIDTH CV 15.7 % (11.5-14.5); RED CELL DISTRIBUTION WIDTH SD 51.5 fL (36.4-46.3); WHITE BLOOD COUNT 13.28 K/uL (4.8-10.8)
[2017-10-14 12:03] LABS: INR 1.1 (0.9-1.1)
--- NOTE | 2017-10-14 12:09 | DIAGNOSTIC IMAGING REPORT ---
ABDOMEN 2VIEW W/PA CHEST RTN CLINICAL HISTORY: 37 years-old Male presenting with abd pain, nausea and vomiting since yesterday, back pain, history of pancreatitis. TECHNIQUE: PA view of the chest and supine and upright views of the abdomen were obtained. COMPARISON: 09/22/[address] from 03/19/2017. FINDINGS: Cardiomediastinal silhouette normal. A vascular stent projects over the region of the left subclavian vein. An additional partially visualized vascular stent projects over the left axilla. Lungs and pleural spaces clear. Nonobstructive bowel gas pattern. No gross pneumoperitoneum. Hyperdensity in the right lower quadrant correlates with postsurgical changes of prior renal transplant. The left lower quadrant renal transplant is not radiographically apparent. Allowing for bowel gas and stool, no calcifications to suggest nephrolithiasis. Osseous structures normal. IMPRESSION: 1. No acute cardiopulmonary disease. 2. No radiographic evidence of acute intra-abdominal pathology. Electronically signed by: Andre Laird M.D. 10/14/2017 12:08 PM Dictated Date/Time: 10/14/2017 12:06 PM
[2017-10-14 12:28] LABS: ALBUMIN 4.6 gm/dl (3.4-5.0); CALCIUM 10.5 mg/dl (8.5-10.1); CREATININE 10.4 mg/dl (0.60-1.40); PHOSPHORUS 1.8 mg/dl (2.5-4.9); POTASSIUM 6.7 mmol/L (3.5-5.1); TOTAL PROTEIN 10.6 gm/dl (6.4-8.2)
--- NOTE | 2017-10-14 13:02 | DIAGNOSTIC IMAGING REPORT ---
CT SCAN OF THE ABDOMEN AND PELVIS WITHOUT CONTRAST CLINICAL HISTORY: Diffuse abdominal pain. History of kidney transplant. COMPARISON STUDY: 03/19/2017 TECHNIQUE: CT scan of the abdomen and pelvis was performed from the lung bases to the proximal femurs. Images are reviewed in the axial, sagittal, and coronal planes. IV contrast was not administered for this examination. A dose lowering technique was utilized adhering to the principles of ALARA. CT DOSE: 352.71 mGycm FINDINGS: Lower chest: The heart is normal in size and configuration, without pericardial effusion. The lung bases and pleural spaces are clear. Liver: The unenhanced liver is normal in size, contour, and attenuation. There is no intrahepatic biliary ductal dilatation. Gallbladder: Unremarkable. Spleen: Normal in size and attenuation. Pancreas: Unremarkable. Adrenal glands: Unremarkable. Kidneys: The date of kidneys are markedly atrophic. There is a left iliac fossa transplant kidney. There are vascular calcifications present. There is no hydronephrosis. There are no peritransplant fluid collections. Bowel: Evaluation the bowel is limited given the lack of intravenous and orally administered contrast. There is also respiratory motion artifact. There is mild dilatation of proximal jejunal loops with air-fluid levels. The distal small bowel is of normal caliber. There is no evidence of acute appendicitis. There is no evidence of acute diverticulitis. Peritoneum: There are dystrophic calcifications within the right iliac fossa, possibly secondary to a prior right iliac fossa renal transplant. There is no ascites. There is no free intraperitoneal air. Vasculature: The abdominal aorta is normal in course and caliber. Adenopathy: None. Pelvic viscera: The bladder, and pelvic viscera are unremarkable. Skeletal structures: Sclerotic appearance of the skeletal structures suggest renal osteodystrophy. IMPRESSION: 1. Technically limited study for bowel evaluation given the lack of intravenous and oral contrast 2. Nonspecific dilatation of proximal jejunal loops with air-fluid levels. This could indicate an ileus, enteritis or early bowel obstruction. Clinical follow-up is advocated 3. No evidence of diverticulitis. No evidence of acute appendicitis 4. Atrophic [place] kidneys. Left iliac fossa transplant kidney. Electronically signed by: Luis Daniel Perkins M.D. 10/14/2017 1:01 PM Dictated Date/Time: 10/14/2017 12:49 PM
[2017-10-14] MEDS ORDERED: METOCLOPRAMIDE HCL INJ 5 MG/ML 2 ML VIAL IV STA (13:32)
[2017-10-14] MEDS ORDERED: HEPARIN SOD (PORCINE) 1000 UNIT/ML 10 ML VIAL IV SCH ×2 (14:00)
--- NOTE | 2017-10-14 14:11 | EMERGENCY ROOM VISIT NOTE ---
History Report prepared by Shaggy: Paulo Ghotra Under the Supervision of: Dr. Guerda Salazar D.O. First contact with patient: 10:11 Chief Complaint: ABDOMINAL PAIN Stated Complaint: ILLNESS History of Present Illness The patient is a 37 year old male who presents to the Emergency Room by EMS with complaints of constant generalized abdominal pain beginning yesterday. He describes his pain as "sharp". He also complains of vomiting, diaphoresis, nausea and pain radiating into his back. The patient is on dialysis (most recent treatment yesterday) with two prior kidney transplants. He was seen in the ED a few weeks ago for similar symptoms, but states that his pain feels different. His last normal bowel movement was this morning. The patient denies black or bloody stool, known fevers, or chills. He has not been able to keep down his oral medications due to vomiting. Source of History: patient Onset: Yesterday Position: abdomen (generalized) Quality: sharp Timing: constant Associated Symptoms: + diaphoresis, + nausea, + vomiting, + back pain, No fevers (known), No chills, No melena, No hematochezia Review of Systems See HPI for pertinent positives & negatives. A total of 10 systems reviewed and were otherwise negative. Past Medical & Surgical Medical Problems: (1) Anxiety (2) CAD (coronary artery disease) (3) Chronic kidney disease (CKD), stage V (4) Depression (5) Dialysis patient (6) ESRD (end stage renal disease) on dialysis (7) Fistula (8) GERD (gastroesophageal reflux disease) (9) HTN (hypertension) (10) Hyperkalemia (11) Kidney transplant failure (12) Nausea & vomiting (13) Thrombocytopenia Surgical Problems: (1) Kidney transplant status (2) Status post AV fistula LUE (3) Stented coronary artery Family History Diabetes mellitus FATHER Hypertension FATHER MOTHER Kidney disease FATHER MOTHER Social History Smoking Status: Never Smoker Alcohol Use: none Drug Use: none Housing Status: lives alone Current/Historical Medications Scheduled Amitriptyline HCl (Amitriptyline HCl), 25 MG PO HS Aspirin (Aspir-81), 81 MG PO DAILY Bupropion Hcl (Smoking [place] (Bupropion Hcl Sr), 1 TAB PO BID Carvedilol (Coreg), 25 MG PO BIDM Cholecalciferol (Vitamin D3), 3,000 PO DAILY Cinecalcet (Sensipar), 60 MG PO evening Clonidine Hcl (Catapres), 0.4 MG PO TID Gabapentin (Neurontin), 100 MG PO TID Hydralazine Hcl (Apresoline), 50 MG PO TID Labetalol Hcl (Labetalol Hcl), 100 MG PO BID Metoclopramide (Reglan), 10 MG PO TID Pantoprazole (Protonix), 40 MG PO BID Sertraline (Zoloft), 50 MG PO DAILY Sevelamer Carbonate (Renvela), 3,200 MG PO TIDM Trazodone Hcl (Trazodone), 50 MG PO HS Scheduled PRN Alprazolam (Xanax), 0.5 MG PO UD PRN for DIALYSIS Calcium Carbonate (Antacid) (Tums), 500 MG PO for Heartburn Allergies Coded Allergies: Minoxidil (Verified Adverse Reaction, Intermediate, priapism, 10/14/17) Prednisone (Verified Adverse Reaction, Intermediate, SEVERE GI UPSET, CONSTIPATION, 10/14/17) PER RECORDS Terazosin (Verified Adverse Reaction, Intermediate, priapism, 10/14/17) Physical Exam Vital Signs Date Time Temp Pulse Resp B/P (MAP) Pulse Ox O2 Delivery O2 Flow Rate FiO2 10/14/17 13:58 120 10/14/17 13:46 114 16 142/112 97 Room Air 10/14/17 13:21 104 20 140/97 98 Room Air 10/14/17 12:50 74 18 166/120 98 Room Air 10/14/17 11:39 82 20 144/113 100 Room Air 10/14/17 10:18 36.9 92 18 171/121 100 Room Air 10/14/17 10:06 107 Physical Exam GENERAL: alert, well appearing, well nourished, no distress, non-toxic. Appears older than stated age. Poor hygiene. EYE EXAM: normal conjunctiva, PERRL and EOM's grossly intact OROPHARYNX: no exudate, no erythema, lips, buccal mucosa, and tongue normal and mucous membranes are dry. Poor dentition. NECK: supple, no nuchal rigidity, no adenopathy, non-tender LUNGS: Clear to auscultation. Normal chest wall mechanics HEART: no murmurs, S1 normal and S2 normal ABDOMEN: abdomen soft, normo-active bowel sounds, no masses, no rebound or guarding. Mild left sided abdominal tenderness to palpation. BACK: Back is symmetrical on inspection and there is no deformity, no midline tenderness, no CVA tenderness. SKIN: no rashes and no bruising UPPER EXTREMITIES: upper extremities are grossly normal. Fistula to proximal LUE. LOWER EXTREMITIES: No pitting edema. NEURO EXAM: Normal sensorium, cranial nerves II-XII grossly intact, normal speech, no gross weakness of arms, no gross weakness of legs. Medical Decision & Procedures ER Provider Diagnostic Interpretation: Radiology results have been interpreted by the radiologist and reviewed by me. ABDOMEN 2VIEW W/PA CHEST RTN FINDINGS: Cardiomediastinal silhouette normal. A vascular stent projects over the region of the left subclavian vein. An additional partially visualized vascular stent projects over the left axilla. Lungs and pleural spaces clear. Nonobstructive bowel gas pattern. No gross pneumoperitoneum. Hyperdensity in the right lower quadrant correlates with postsurgical changes of prior renal transplant. The left lower quadrant renal transplant is not radiographically apparent. Allowing for bowel gas and stool, no calcifications to suggest nephrolithiasis. Osseous structures normal. IMPRESSION: 1. No acute cardiopulmonary disease. 2. No radiographic evidence of acute intra-abdominal pathology. Electronically signed by: Andre Laird M.D. 10/14/2017 12:[address] SCAN OF THE ABDOMEN AND PELVIS WITHOUT CONTRAST FINDINGS: Lower chest: The heart is normal in size and configuration, without pericardial effusion. The lung bases and pleural spaces are clear. Liver: The unenhanced liver is normal in size, contour, and attenuation. There is no intrahepatic biliary ductal dilatation. Gallbladder: Unremarkable. Spleen: Normal in size and attenuation. Pancreas: Unremarkable. Adrenal glands: Unremarkable. Kidneys: The date of kidneys are markedly atrophic. There is a left iliac fossa transplant kidney. There are vascular calcifications present. There is no hydronephrosis. There are no peritransplant fluid collections. Bowel: Evaluation the bowel is limited given the lack of intravenous and orally administered contrast. There is also respiratory motion artifact. There is mild dilatation of proximal jejunal loops with air-fluid levels. The distal small bowel is of normal caliber. There is no evidence of acute appendicitis. There is no evidence of acute diverticulitis. Peritoneum: There are dystrophic calcifications within the right iliac fossa, possibly secondary to a prior right iliac fossa renal transplant. There is no ascites. There is no free intraperitoneal air. Vasculature: The abdominal aorta is normal in course and caliber. Adenopathy: None. Pelvic viscera: The bladder, and pelvic viscera are unremarkable. Skeletal structures: Sclerotic appearance of the skeletal structures suggest renal osteodystrophy. IMPRESSION: 1. Technically limited study for bowel evaluation given the lack of intravenous and oral contrast 2. Nonspecific dilatation of proximal jejunal loops with air-fluid levels. This could indicate an ileus, enteritis or early bowel obstruction. Clinical follow-up is advocated 3. No evidence of diverticulitis. No evidence of acute appendicitis 4. Atrophic [place] kidneys. Left iliac fossa transplant kidney. Electronically signed by: Luis Daniel Perkins M.D. 10/14/2017 1:01 PM Laboratory Results Test 10/14/17 11:40 Prothrombin Time 11.6 SECONDS (9.0-12.0) Prothromb Time International Ratio 1.1 (0.9-1.1) Laboratory results per my review. Medications Administered Medications (Trade) Dose Ordered Sig/Betsy Route Start Time Stop Time Status Last Admin Dose Admin Fentanyl Citrate (Fentanyl Inj) 50 mcg NOW STAT IV 10/14/17 10:21 10/14/17 10:23 DC 10/14/17 11:04 50 MCG Dicyclomine HCl (Bentyl Tab) 20 mg NOW STAT PO 10/14/17 10:23 10/14/17 10:24 DC 10/14/17 11:07 20 MG Prochlorperazine Edisylate (Compazine Inj) 5 mg NOW STAT IV 10/14/17 10:23 10/14/17 10:24 DC 10/14/17 11:03 5 MG Diphenhydramine HCl (Benadryl Inj) 25 mg NOW STAT IV 10/14/17 10:23 10/14/17 10:24 DC 10/14/17 11:05 25 MG Fentanyl Citrate (Fentanyl Inj) 50 mcg NOW STAT IV 10/14/17 11:41 10/14/17 11:42 DC 10/14/17 12:02 50 MCG Metoclopramide HCl (Reglan Inj) 10 mg NOW STAT IV 10/14/17 13:32 10/14/17 13:33 DC 10/14/17 13:45 10 MG Diphenhydramine HCl (Benadryl Inj) 12.5 mg NOW STAT IV 10/14/17 13:32 10/14/17 13:33 DC 10/14/17 13:44 12.5 MG ECG Per My Interpretation Indication: abdominal pain Rate (beats per minute): 88 Rhythm: normal sinus Findings: other (Normal axis. Normal intervals. Non-specific T-wave change in lead 2, 3, AVF, V4, V5, and V6. ) Comparison ECG Date: September 22, 2017 Change: T-wave morphology appears slightly different from prior. ED Course 1015: The patient was evaluated in room C5. A complete history and physical exam was performed. 1403: Upon reevaluation, the patient is resting. I discussed the findings and the treatment plan with the patient. He expresses agreement and understanding. I [facility] The patient will be evaluated for further management. Medical Decision Differential diagnosis: Etiologies such as appendicitis, diverticulitis, PUD, biliary pathology, UTI, pancreatitis, obstruction, mesenteric ischemia, aortic pathology, infections, inflammatory bowel disease, renal colic, as well as others were entertained. Patient with long-standing history of chronic kidney disease on dialysis. Patient denies missing any dialysis treatments and state no changes in his dialysis yesterday. Patient presents with abdominal pain nausea vomiting. Patient has presented similarly in the past upon review of EMR. Patient found to be hemodynamically stable. Patient with lab abnormalities noted, although most chronic and likely normal for him in the setting of being between dialysis treatments. Patient with no ectopy, no significant peak T waves noted on EKG despite hyperkalemia. The significant pathology found regarding his abdominal pain. Patient's exam not consistent with bowel obstruction, dissection, AAA, colitis, perforation, GI bleed. Patient with nonspecific findings noted on CT and several possible etiologies noted by radiology. Discussed with patient possible gastroparesis as etiology of symptoms. Given nonspecific findings, mild leukocytosis which may be reactive from vomiting and patient not febrile does not feel patient warranted empiric antibiotics. Feel patient requires close monitoring of his GI symptoms and in conjunction with recommended nephrology treatment. Patient improved here with medications although symptoms not completely resolved. Patient not given IV fluids due to tenuous volume status in a dialysis patient. Case discussed with Dr. 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 Agrees patient may benefit from inpatient treatment and additional short dialysis treatment today. She recommends admission by the hospitalist and she will call and arrange for additional dialysis treatment today and see the patient in consult. I do not suspect bacteremia/sepsis, ACS, or other acute vascular pathology leading to patient's nausea vomiting. Patient has had several prior visits with similar episodes with no specific etiology noted. Dr. Allen did not advise any additional orders at the time of consultation and she will see the patient and make additional recommendations. Medication Reconcilliation Current Medication List: was personally reviewed by me Blood Pressure Screening Patient's blood pressure: Elevated blood pressure Blood pressure disposition: Referred to PCP Consults Time Called: 1400 Consulting Physician: Tamica Lujan Hospitalist Returned Call: 1403 I reviewed the patient's case with Tamica Lujan will evaluate the patient for further management. Additional Consults: Time Called: 1334 Consulted Physician: Dr. Allen - Nephrology Returned Call: [phone] Additional Comments: I reviewed the patient's case with Dr. Allen. She recommends the patient be admitted to the hospital. She will assist with setting the patient up with inpatient dialysis. Impression Primary Impression: Abdominal pain Additional Impressions: Hyperkalemia Nausea CKD (chronic kidney disease) requiring chronic dialysis Hyponatremia Scribe Attestation The scribe's documentation has been prepared under my direction and personally reviewed by me in its entirety. I confirm that the note above accurately reflects all work, treatment, procedures, and medical decision making performed by me. Departure Information Dispostion Being Evaluated By Hospitalist Referrals Fanny Chen M.D. (PCP) Patient Instructions My [facility] Problem Qualifiers Primary Impression: Abdominal pain Abdominal location: generalized Qualified Codes: R10.84 - Generalized abdominal pain
[2017-10-14] MEDS ORDERED: ACETAMINOPHEN 325 MG TAB PO PRN (14:45)
[2017-10-14] MEDS ORDERED: LABETALOL HCL 100 MG TAB PO STA (15:45)
[2017-10-14] MEDS ORDERED: CONSULT PHARMACY STA (17:29)
[2017-10-14] MEDS: CARVEDILOL 25 MG TAB PO SCH (17:43)
[2017-10-14] MEDS: SEVELAMER HYDROCH 800 MG TAB PO SCH (17:44)
[2017-10-14] MEDS ORDERED: CIPROFLOXACIN CONSULT ACTIVE PRN (17:45)
[2017-10-14] MEDS ORDERED: METRONIDAZOLE CONSULT ACTIVE PRN (17:45)
[2017-10-14] MEDS: BuPROPion SR 150 MG TABCR PO SCH (17:46)
[2017-10-14] MEDS: METRONIDAZOLE 500MG / NSS IV SCH (18:23)
[2017-10-14] MEDS: CIPROFLOXACIN 400MG / D5W IV SCH (18:23)
[2017-10-14] MEDS ORDERED: INSULIN HUMAN REGULAR PER UNIT 10 UNITS in SYRINGE 9.9 ML IV ONE (18:45)
[2017-10-14] MEDS ORDERED: DEXTROSE 50% 50 ML SYR IV STA (18:45)
[2017-10-14] MEDS: CINACALCET: ORDER AWAITING ACTION SCH ×2 (19:34→23:46)
--- NOTE | 2017-10-14 20:20 | History and Physical ---
History & Physical Date & Time of Service: Oct 14, 2017 at 15:33 Chief Complaint: Illness Primary Care Physician: Fanny Chen M.D. History of Present Illness Source: patient, clinic records, hospital records Pt is 37 y/o M with PMH ESRD on HD, HTN, anxiety, depression, GERD, gastroparesis presented to ER with c/o N/V, abdominal pain started yesterday. Pt c/o left sided abdominal discomfort described as cramping/squeezing sensation. Reports nausea and vomited approx 12 times. Denies diarrhea. Reports last BM yesterday which he reports as normal. Hx admission 09/17/17-09/18/17 for nausea, vomiting and pt reports was feeling well since until yesterday. Has HD on MWF. Reports had HD yesterday. Does not make much urine. Did not take any of his medications yet today secondary to nausea and vomiting. Denies ETOH use. Feeling a little chilled. Denies fever, diaphoresis, hematemesis, melena, hematochezia, ELAM, dizziness, syncope, vision changes, neck pain, CP, SOB, orthopnea, palpitations, cough, sore throat, choking, otalgia, rhinorrhea, paresthesias, weakness, extremity edema, rashes. Past Medical/Surgical History Medical Problems: (1) Anxiety Status: Chronic (2) CAD (coronary artery disease) Permanent Comment: s/p stent placement Status: Chronic (3) Chronic kidney disease (CKD), stage V Permanent Comment: history glomerulonephritis Status: Chronic (4) Depression Status: Chronic (5) Dialysis patient Status: Chronic (6) Fistula Status: Chronic (7) GERD (gastroesophageal reflux disease) Status: Chronic (8) HTN (hypertension) Status: Chronic (9) Kidney transplant failure Status: Chronic (10) Thrombocytopenia Status: Chronic Surgical Problems: (1) Kidney transplant status Permanent Comment: R 1984 and L 2012 Status: Chronic (2) Status post AV fistula LUE Permanent Comment: 10/29/16 Status: Chronic (3) Stented coronary artery Permanent Comment: stents x 2 in [place] in 2006 and 2010 Status: Chronic Family History Diabetes mellitus FATHER Hypertension FATHER MOTHER Kidney disease FATHER MOTHER Social History Smoking Status: Former Smoker (quit 01/2017. smoked 0.5ppd x 6 years) Smokeless Tobacco Use: No Alcohol Use: none Drug Use: none Marital Status: Immunizations History of Influenza Vaccine: Yes Influenza Vaccine Date: Apr 05, 2016 History of Tetanus Vaccine?: Yes Tetanus Immunization Date: Feb 12, 2014 History of Pneumococcal: Yes Pneumococcal Date: Feb 12, 2014 Allergies Coded Allergies: Minoxidil (Verified Adverse Reaction, Intermediate, priapism, 10/14/17) Prednisone (Verified Adverse Reaction, Intermediate, SEVERE GI UPSET, CONSTIPATION, 10/14/17) PER RECORDS Terazosin (Verified Adverse Reaction, Intermediate, priapism, 10/14/17) Home Medications Scheduled Amitriptyline HCl (Amitriptyline HCl), 25 MG PO HS Aspirin (Aspir-81), 81 MG PO DAILY Bupropion Hcl (Smoking [place]eterre (Bupropion Hcl Sr), 1 TAB PO BID Carvedilol (Coreg), 25 MG PO BIDM Cholecalciferol (Vitamin D3), 3,000 PO DAILY Cinecalcet (Sensipar), 60 MG PO evening Clonidine Hcl (Catapres), 0.4 MG PO TID Gabapentin (Neurontin), 100 MG PO TID Hydralazine Hcl (Apresoline), 50 MG PO TID Labetalol Hcl (Labetalol Hcl), 100 MG PO BID Metoclopramide (Reglan), 10 MG PO TID Pantoprazole (Protonix), 40 MG PO BID Sertraline (Zoloft), 50 MG PO DAILY Sevelamer Carbonate (Renvela), 3,200 MG PO TIDM Trazodone Hcl (Trazodone), 50 MG PO HS Scheduled PRN Alprazolam (Xanax), 0.5 MG PO UD PRN for DIALYSIS Calcium Carbonate (Antacid) (Tums), 500 MG PO for Heartburn Review of Systems Constitutional: + problem reported, No fever, No sweats, No weight loss, No weakness, No fatigue Eyes: No worsening of vision, No eye pain, No redness, No diplopia ENT: No unusual epistaxis, No nasal symptoms, No sore throat, No tinnitus Respiratory: No cough, No sputum, No wheezing, No shortness of breath, No dyspnea on exertion, No dyspnea at rest, No hemoptysis Cardiovascular: No chest pain, No orthopnea, No PND, No edema, No palpitations Abdomen: + problem reported (see HPI) Musculoskeletal: No joint pain, No muscle pain, No calf pain Genitourinary - Male: No hematuria, No dysuria Neurologic: No paralysis, No weakness, No numbness/tingling, No vertigo Endocrine: No excessive thirst Hematologic / Lymphatic: No abnormal bleeding/bruising, No clotting problems, No night sweats Integumentary: No rash, No itch Physical Exam Vital Signs Date Time Temp Pulse Resp B/P (MAP) Pulse Ox O2 Delivery O2 Flow Rate FiO2 10/14/17 14:28 122 20 141/97 98 Room Air 10/14/17 13:58 120 10/14/17 13:46 114 16 142/112 97 Room Air 10/14/17 13:21 104 20 140/97 98 Room Air 10/14/17 12:50 74 18 166/120 98 Room Air 10/14/17 11:39 82 20 144/113 100 Room Air 10/14/17 10:18 36.9 92 18 171/121 100 Room Air 10/14/17 10:06 107 General Appearance: + pertinent finding (chronic ill appearing, in no apparent distress) Head: normocephalic, atraumatic Eyes: normal inspection, PERRL, EOMI ENT: hearing grossly normal, pharynx normal, + pertinent finding (slightly dry mucous membranes) Neck: supple, no JVD, trachea midline Respiratory/Chest: lungs clear, normal breath sounds, no respiratory distress Cardiovascular: no murmur, + tachycardia Abdomen/GI: normal bowel sounds, soft, + pertinent finding (mild tenderness to palpation epigastric, RUQ, RLL without guarding or rebound) Back: no CVA tenderness Extremities/Musculoskelatal: no calf tenderness, normal capillary refill, no pedal edema, normal range of motion, non-tender Neurologic/Psych: alert, normal mood/affect, oriented x 3 Skin: warm/dry Diagnostics Laboratory Results Results Past 24 Hours Test 10/14/17 11:40 10/14/17 14:04 10/14/17 14:34 Range/Units White Blood Count 13.28 4.8-10.8 K/uL Red Blood Count 4.87 4.7-6.1 M/uL Hemoglobin 15.6 14.0-18.0 g/dL Hematocrit 44.7 42-52 % Mean Corpuscular Volume 91.8 80-100 fL Mean Corpuscular Hemoglobin 32.0 25-34 pg Mean Corpuscular Hemoglobin Concent 34.9 32-36 g/dl Platelet Count 186 130-400 K/uL Mean Platelet Volume 11.2 7.4-10.4 fL Neutrophils (%) (Auto) 84.2 % Lymphocytes (%) (Auto) 7.5 % Monocytes (%) (Auto) 7.9 % Eosinophils (%) (Auto) 0.0 % Basophils (%) (Auto) 0.1 % Neutrophils # (Auto) 11.18 1.4-6.5 K/uL Lymphocytes # (Auto) 1.00 1.2-3.4 K/uL Monocytes # (Auto) 1.05 0.11-0.59 K/uL Eosinophils # (Auto) 0.00 0-0.5 K/uL Basophils # (Auto) 0.01 0-0.2 K/uL RDW Standard Deviation 51.5 36.4-46.3 fL RDW Coefficient of Variation 15.7 11.5-14.5 % Immature Granulocyte % (Auto) 0.3 % Immature Granulocyte # (Auto) 0.04 0.00-0.02 K/uL Prothrombin Time 11.6 9.0-12.0 SECONDS Prothromb Time International Ratio 1.1 0.9-1.1 Sodium Level 125 136-145 mmol/L Potassium Level 6.7 3.5-5.1 mmol/L Chloride Level 88 98-107 mmol/L Carbon Dioxide Level 22 21-32 mmol/L Anion Gap 15.0 3-11 mmol/L Blood Urea Nitrogen 41 7-18 mg/dl Creatinine 10.40 0.60-1.40 mg/dl Est Creatinine Clear Calc Drug Dose 8.6 ml/min Estimated GFR () 6.4 Estimated GFR (Non- 5.6 BUN/Creatinine Ratio 3.9 10-20 Random Glucose 96 70-99 mg/dl Calcium Level 10.5 8.5-10.1 mg/dl Phosphorus Level 1.8 2.5-4.9 mg/dl Magnesium Level 2.6 1.8-2.4 mg/dl Total Bilirubin 0.6 0.2-1 mg/dl Aspartate Amino Transf (AST/SGOT) 19 15-37 U/L Alanine Aminotransferase (ALT/SGPT) 15 12-78 U/L Alkaline Phosphatase 149 45-117 U/L Total Protein 10.6 6.4-8.2 gm/dl Albumin 4.6 3.4-5.0 gm/dl Globulin 6.0 2.5-4.0 gm/dl Albumin/Globulin Ratio 0.8 0.9-2 Lipase 285 73-393 U/L Diagnostic Radiology ABD 2 VIEW/PA CHEST: IMPRESSION: 1. No acute cardiopulmonary disease. 2. No radiographic evidence of acute intra-abdominal pathology. CT ABDOMEN: IMPRESSION: 1. Technically limited study for bowel evaluation given the lack of intravenous and oral contrast 2. Nonspecific dilatation of proximal jejunal loops with air-fluid levels. This could indicate an ileus, enteritis or early bowel obstruction. Clinical follow-up is advocated 3. No evidence of diverticulitis. No evidence of acute appendicitis 4. Atrophic [place] kidneys. Left iliac fossa transplant kidney. EKG EKG: NSR, rate 88, non-specific t wave abnormality Read by shoe repair supervisor: Normal sinus rhythm Nonspecific T wave abnormality Abnormal ECG When compared with ECG of 22-SEP-2017 07:17, Nonspecific T wave abnormality now evident in Lateral leads Confirmed by FIDEL BROWN ([id number]) on 10/14/2017 11:58:54 AM Impression Assessment and Plan ABDOMINAL PAIN, N/V Pt with hx GERD, gastroparesis. Yesterday started with nausea, vomiting and abdominal pain. Normal BM yesterday. In ER afebrile. WBC: 13. Lactic acid WNL. Procalcitonin 3.8. Pt with positive BS on exam. Pt given compazine, reglan, fentanyl, bentyl, and benadryl in ER and pt reports decreased abdominal pain and nausea. CT ABD: IMPRESSION: 1. Technically limited study for bowel evaluation given the lack of intravenous and oral contrast. 2. Nonspecific dilatation of proximal jejunal loops with air-fluid levels. This could indicate an ileus, enteritis or early bowel obstruction. Clinical follow-up is advocated. 3. No evidence of diverticulitis. No evidence of acute appendicitis. 4. Atrophic [place] kidneys. Left iliac fossa transplant kidney. -LFTs and electrolytes and procalcitonin in am -clear fluids -cipro/flagyl to cover for possible enteritis -KUB in am -continue Reglan -continue Protonix -if no improvement/worsening consider GI consult HYPERKALEMIA K: 6.7. Pt to have HD today. -repeat prp & EKG 1999 -monitor electrolytes HYPONATREMIA Na: 125. baseline 128-135 -monitor electrolytes after dialysis ESRD on HD MWF HD. Dr Allen consulted in ER and plan to have pt have HD today secondary to hyperkalemia -magnesium, phos labs in am and monitor renal functions -nephrology consult -avoid nephrotoxic agents when possible HTN BP: 171/121 down to 140/97. P: 112. Given dose labetalol -continue carvedilol, clonidine, hydralazine, labetalol -continue to monitor, may need to add prn med or adjust meds ANXIETY/DEPRESSION -continue Zoloft, bupropion GERD -continue PPI Hx THROMBOCYTOPENIA stable DVT Prophylaxis -SCDs Disposition admit tele Full Code Follows with Dr Chen for routine care Pt was seen with Dr Steel. See addendum Attending Note: Patient is a 37 yr male with PMH of ESRD on HD, gastroparesis and other problems presents with history of multiple episodes of nausea, vomiting and worsening abdominal pain since yesterday. Patient states he ate Cacciat[place] after which he developed the symptoms. He described abdominal pain to be cramping in nature, generalized, radiates to back intermittently. Last BM was yesterday which was normal per patient. Denies any history of melena or blood in stools, fever, chills. Patient was found to be Hyperkalemic and denies missing his HD. Physical Exam: Vitals signs as noted above General Appearance:Moderately built and nourished, no apparent distress Head: normocephalic, Atraumatic Eyes: normal inspection, EOMI, PERRL Neck: supple, Trachea midline Respiratory/Chest: Normal breath sounds, CTA, No accessory muscle use Cardiovascular: S1, S2, No murmur Abdomen/GI:Soft, generalized tenderness, decreased Bowel sounds, + Abdominal well healed surgical scars Extremities/Musculoskelatal:normal inspection, no edema, Left hand scratch vanegas , +LUE fistula Neurologic/Psych:AAOX3, grossly no focal neurological deficits Skin:normal color,warm, + Multiple Tattoos Assessment and Plan: Abdominal Pain/nausea,Vomiting: Insetting of chronic gastroparesis Likely secondary to Ileus, Possible Early SBO and Enteritis Gentle IV fluids given ESRD IV Abx empirically Repeat KUB in AM Minimize Pain meds use clear Liquid diet continue Reglan Consider GI/Surgery if clinically deteriorates Hyperkalemia: HD per Nephrology Will give Insulin, Dextrose Avoid Kayexalate given abdominal pain Consider Calcium gluconate if any EKG changes Monitor BMP closely Appreciate Nephrology Input DVT Px: Heparin SQ I personally reviewed the record. Patient is interviewed and examined at bedside. Patient's care is coordinated with Tamica Cardoza PA-C. Please refer to the documentation above for details of patient's presentation and for discussion of other issues. Resuscitation Status full code VTE Prophylaxis Will order VTE Prophylaxis: Yes Additional Copies To Asif Steel MD
[2017-10-14] MEDS: AMITRIPTYLINE HCL 25 MG TAB PO SCH (20:28)
[2017-10-14] MEDS: TRAZODONE HCL 50 MG TAB PO SCH (20:28)
[2017-10-14] MEDS: GABAPENTIN 100 MG CAP PO SCH (20:29)
[2017-10-14] MEDS: PANTOprazole SOD 40 MG TAB PO SCH (20:29)
[2017-10-14] MEDS: METOCLOPRAMIDE HCL 10 MG TAB PO SCH (20:29)
[2017-10-14] MEDS: ALPRAZOLAM 0.5 MG TAB PO PRN (20:31)
[2017-10-14] MEDS: LABETALOL HCL 100 MG TAB PO SCH (20:38)
[2017-10-14] MEDS: CLONIDINE HCL 0.1 MG TAB PO SCH (20:38)
[2017-10-14] MEDS ORDERED: SODIUM CHLORIDE 0.9% 1000ML 500 ML IV ONE (21:30)
--- NOTE | 2017-10-14 21:49 | Nephrology Consultation ---
Nephrology Consultation Date of Consultation: Oct 14, 2017. Attending Physician: Dr Steel Requesting Physician: Dr Saavedra Reason for Consultation: ESRD hyperkalemia History of Present Illness 37 year old male on mwf HD via avf came to er today for eval of unrelenting N/V , abd pain > noted on presentation to have K 6.7. He states he had a full hd tx yesterday. no f/c. no ECG changes. hx of dietary indiscretions contributing to high K for him in past; not clear if this has become an issue again. we arranged for admission to get an extra HD tx urgently to lower his K. I evaluated him in the ER earlier today at about 1430. he had no medical therapy for this as hd was planned. He had some unexplained tachycardia in ER and so HD d/t this and K was on assistant director of residence life. Pt w/ hx of chronic pain and also per teams some drug seeking behavior. He cut his 2.5 hr HD short by 1 hr b /c he wanted pain medication and did not receive it. I recommended to the hospitalist then that we repeat ECG to ensure no changes; and treat K w/ insulin IV; and recheck. Pt has been very frustrated and threatening to sign out ama. Past Medical/Surgical History Medical Problems: (1) Abdominal pain Status: Acute (2) Abdominal pain Status: Acute (3) Abdominal pain Status: Acute (4) Abnormal EKG Status: Acute (5) Acute vomiting Status: Acute (6) Anemia Status: Acute (7) Back pain Status: Acute (8) Back pain Status: Acute (9) CKD (chronic kidney disease) requiring chronic dialysis Status: Acute (10) Constipation Status: Acute (11) Elevated lipase Status: Acute (12) End stage renal disease Status: Acute (13) End stage renal disease Status: Acute (14) End stage renal failure on dialysis Status: Acute (15) Epigastric abdominal pain Status: Acute (16) Epigastric abdominal pain Status: Acute (17) ESRF (end stage renal failure) Status: Acute (18) Headache Status: Acute (19) Headache Status: Acute (20) Hypertension Status: Acute (21) Hypertensive emergency Status: Acute (22) Intractable abdominal pain Status: Acute (23) Lactic acidosis Status: Acute (24) Lower abdominal pain Status: Acute (25) Nausea Status: Acute (26) Nausea Status: Acute (27) Nausea & vomiting Status: Acute (28) Nausea & vomiting Status: Acute (29) Nausea & vomiting Status: Acute (30) Nausea and vomiting Status: Acute (31) Posterior reversible encephalopathy syndrome Status: Acute (32) Thrombocytopenia Status: Acute (33) Vomiting Status: Acute (34) Vomiting Status: Acute -End-stage renal disease on dialysis Mondays, Wednesdays, Fridays; from glomerulonephritis s/p 2 failed renal txplts; s/p multiple tunnelled dialysis catheters; s/p multiple avf attempts -hypertension, -anxiety -coronary artery disease with history of coronary stenting -chronic back pain -chronic abdominal pain/pancreatitis Family History Diabetes mellitus FATHER Hypertension FATHER MOTHER Kidney disease FATHER MOTHER renal disease Social History Smoking Status: Former Smoker (quit 01/2017. smoked 0.5ppd x 6 years) Alcohol Use: none Drug Use: none Marital Status: Housing Status: lives alone Allergies Coded Allergies: Minoxidil (Verified Adverse Reaction, Intermediate, priapism, 10/14/17) Prednisone (Verified Adverse Reaction, Intermediate, SEVERE GI UPSET, CONSTIPATION, 10/14/17) PER RECORDS Terazosin (Verified Adverse Reaction, Intermediate, priapism, 10/14/17) Medications Current Inpatient Medications Medications (Trade) Dose Ordered Sig/Betsy Route Start Time Stop Time Status Last Admin Dose Admin Acetaminophen (Tylenol Tab) 650 mg Q4H PRN PO 10/14/17 14:45 11/13/17 14:44 10/14/17 20:34 650 MG Ondansetron HCl (Zofran Inj) 4 mg Q6H PRN IV 10/14/17 14:45 11/13/17 14:44 Alprazolam (Xanax Tab) 0.5 mg QAM PRN PO 10/14/17 15:00 11/13/17 14:59 10/14/17 20:31 0.5 MG Amitriptyline HCl (Elavil Tab) 25 mg HS PO 10/14/17 21:00 11/13/17 20:59 10/14/17 20:28 25 MG Aspirin (Ecotrin Tab) 81 mg DAILY PO 10/15/17 09:00 11/14/17 08:59 Carvedilol (Coreg Tab) 25 mg BIDM PO 10/14/17 16:45 4/26/18 17:59 10/14/17 17:43 25 MG Cholecalciferol (Vitamin D Tab) 3,000 inter.unit DAILY PO 10/15/17 09:00 11/14/17 08:59 Gabapentin (Neurontin Cap) 100 mg TID PO 10/14/17 21:00 11/13/17 20:59 10/14/17 20:29 100 MG Hydralazine HCl (Apresoline Tab) 50 mg TID PO 10/14/17 21:00 11/13/17 20:59 Labetalol HCl (Normodyne Tab) 100 mg BID PO 10/14/17 21:00 11/13/17 20:59 Metoclopramide HCl (Reglan Tab) 10 mg TID PO 10/14/17 21:00 11/13/17 20:59 10/14/17 20:29 10 MG Pantoprazole Sodium (Protonix Tab) 40 mg BID PO 10/14/17 21:00 11/13/17 20:59 10/14/17 20:29 40 MG Sertraline HCl (Zoloft Tab) 50 mg DAILY PO 10/15/17 09:00 11/14/17 08:59 Trazodone HCl (Desyrel Tab) 50 mg HS PO 10/14/17 21:00 11/13/17 20:59 10/14/17 20:28 50 MG Bupropion HCl (Wellbutrin-Sr Tab) 150 mg BID17 PO 10/14/17 17:00 11/13/17 16:59 10/14/17 17:46 150 MG Miscellaneous Information (Order Awaiting Action) 1 ea QS N/A 10/14/17 16:00 11/13/17 15:59 Clonidine HCl (Catapres Tab) 0.4 mg TID PO 10/14/17 21:00 11/13/17 20:59 Sevelamer HCl (Renagel Tab) 3,200 mg TIDM PO 10/14/17 16:45 11/13/17 17:59 10/14/17 17:44 3,200 MG Ciprofloxacin (Consult) 1 ea UD PRN N/A 10/14/17 17:45 11/13/17 17:44 Metronidazole (Consult) 1 ea UD PRN N/A 10/14/17 17:45 11/13/17 17:44 Ciprofloxacin/ Dextrose 400 mg/ Prmx 200 ml @ 100 mls/hr Q24H IV 10/14/17 18:00 10/24/17 17:59 10/14/17 18:23 100 MLS/HR Metronidazole 500 mg/Prmx 100 ml @ 100 mls/hr Q8H IV 10/14/17 18:00 10/24/17 17:59 10/14/17 18:23 100 MLS/HR Heparin Sodium (Porcine) (Heparin Sq 5000 Unit/0.5ml) 5,000 unit Q12 SQ 10/15/17 09:00 11/14/17 08:59 Sodium Chloride 500 ml @ 50 mls/hr Q10H ONCE IV 10/14/17 21:30 10/15/17 07:29 Home Meds and Scripts Medications Dose Route/Sig Max Daily Dose Days Date Category Dose Instructions Sensipar (Cinecalcet) 60 Mg Tab 60 Mg PO EVENING 09/17/17 Reported Vitamin D3 (Cholecalciferol) 1,000 Inter.unit Tab 3,000 PO DAILY 09/17/17 Reported Tums (Calcium Carbonate (Antacid)) 500 Mg Chw 500 Mg PO PRN 09/17/17 Reported Bupropion Hcl Sr (Bupropion Hcl (Smoking Deterre) 150 Mg Tab 1 Tab PO BID 30 09/17/17 Reported Aspir-81 (Aspirin) 81 Mg Tab 81 Mg PO DAILY 09/17/17 Reported Renvela (Sevelamer Carbonate) 800 Mg Tab 3,200 Mg PO TIDM 09/17/17 Reported FOUR 800 MG TABLETS TID WITH MEALS, PER SURESCRIPTS Xanax (Alprazolam) 0.5 Mg Tab 0.5 Mg PO UD PRN 09/17/17 Reported Protonix (Pantoprazole Sodium) 40 Mg Tab 40 Mg PO BID 09/17/17 Reported Coreg (Carvedilol) 25 Mg Tab 25 Mg PO BIDM 09/17/17 Reported Reglan (Metoclopramide HCl) 10 Mg Tab 10 Mg PO TID 09/17/17 Reported 30 minutes before meals Catapres (Clonidine Hcl) 0.2 Mg Tab 0.4 Mg PO TID 09/17/17 Reported TWO 0.2 MG TABLETS Amitriptyline HCl 25 Mg Tab 25 Mg PO HS 09/17/17 Reported Zoloft (Sertraline HCl) 50 Mg Tab 50 Mg PO DAILY 09/17/17 Reported Trazodone (Trazodone HCl) 50 Mg Tab 50 Mg PO HS 09/17/17 Reported Apresoline (Hydralazine Hcl) 50 Mg Tab 50 Mg PO TID 09/17/17 Reported Neurontin (Gabapentin) 100 Mg Cap 100 Mg PO TID 09/17/17 Reported Labetalol Hcl 100 Mg Tab 100 Mg PO BID 09/17/17 Reported Review of Systems Constitutional: + fatigue, No fever, No chills, No weakness Eyes: No worsening of vision ENT: No hearing loss Respiratory: No shortness of breath Cardiac: No chest pain, No palpitations Abdomen: + pain, + nausea, + vomiting, + constipation Musculoskeletal: + joint pain (back pain chronically) Male : + problem reported (anuric) Neuro: No memory loss, No numbness/tingling, No balance problems Psych: No depression symptoms, No anxiety Heme: No abnormal bleeding/bruising, No clotting problems Endo: + fatigue Skin: No rash, No itch, No new/changing skin lesions Physical Exam Date Time Temp Pulse Resp B/P (MAP) Pulse Ox O2 Delivery O2 Flow Rate FiO2 10/14/17 19:15 36.8 94 18 112/84 (93) 100 Room Air 10/14/17 18:04 36.9 96 22 168/136 96 Room Air 10/14/17 17:10 36.9 104 146/44 (78) 10/14/17 17:00 102 135/87 10/14/17 16:45 92 128/84 10/14/17 16:30 88 122/68 10/14/17 16:15 82 148/87 10/14/17 16:07 36.9 90 173/102 (125) 10/14/17 16:07 92 167/110 10/14/17 15:32 84 18 163/126 98 Room Air 10/14/17 14:28 122 20 141/97 98 Room Air 10/14/17 13:58 120 10/14/17 13:46 114 16 142/112 97 Room Air 10/14/17 13:21 104 20 140/97 98 Room Air 10/14/17 12:50 74 18 166/120 98 Room Air 10/14/17 11:39 82 20 144/113 100 Room Air 10/14/17 10:18 36.9 92 18 171/121 100 Room Air 10/14/17 10:06 107 24-Hour Column 10/15/17 08:00 Output Total 1020 ml Balance -1020 ml General Appearance: WD/WN, no apparent distress, + pertinent finding ( chronically ill appearing, lying flat on RA sleeping) Eyes: EOMI ENT: hearing grossly normal Neck: supple Respiratory/Chest: normal breath sounds, no respiratory distress Cardiovascular: no edema, + tachycardia Abdomen: normal bowel sounds, soft, + guarding, + tenderness Extremities: non-tender, + pertinent finding (avf LUE + t/b) Neurologic/Psych: alert, normal mood/affect, oriented x 3 Skin: no jaundice, warm/dry, no rash Diagnostics Last 24 Hours Test 10/14/17 11:40 10/14/17 15:55 White Blood Count 13.28 K/uL Red Blood Count 4.87 M/uL Hemoglobin 15.6 g/dL Hematocrit 44.7 % Mean Corpuscular Volume 91.8 fL Mean Corpuscular Hemoglobin 32.0 pg Mean Corpuscular Hemoglobin Concent 34.9 g/dl Platelet Count 186 K/uL Mean Platelet Volume 11.2 fL Neutrophils (%) (Auto) 84.2 % Lymphocytes (%) (Auto) 7.5 % Monocytes (%) (Auto) 7.9 % Eosinophils (%) (Auto) 0.0 % Basophils (%) (Auto) 0.1 % Neutrophils # (Auto) 11.18 K/uL Lymphocytes # (Auto) 1.00 K/uL Monocytes # (Auto) 1.05 K/uL Eosinophils # (Auto) 0.00 K/uL Basophils # (Auto) 0.01 K/uL RDW Standard Deviation 51.5 fL RDW Coefficient of Variation 15.7 % Immature Granulocyte % (Auto) 0.3 % Immature Granulocyte # (Auto) 0.04 K/uL Prothrombin Time 11.6 SECONDS Prothromb Time International Ratio 1.1 Sodium Level 125 mmol/L Potassium Level 6.7 mmol/L Chloride Level 88 mmol/L Carbon Dioxide Level 22 mmol/L Anion Gap 15.0 mmol/L Blood Urea Nitrogen 41 mg/dl Creatinine 10.40 mg/dl Est Creatinine Clear Calc Drug Dose 8.6 ml/min Estimated GFR () 6.4 Estimated GFR (Non- 5.6 BUN/Creatinine Ratio 3.9 Random Glucose 96 mg/dl Calcium Level 10.5 mg/dl Phosphorus Level 1.8 mg/dl Magnesium Level 2.6 mg/dl Total Bilirubin 0.6 mg/dl Aspartate Amino Transf (AST/SGOT) 19 U/L Alanine Aminotransferase (ALT/SGPT) 15 U/L Alkaline Phosphatase 149 U/L Total Protein 10.6 gm/dl Albumin 4.6 gm/dl Globulin 6.0 gm/dl Albumin/Globulin Ratio 0.8 Lipase 285 U/L Lactic Acid Level 1.7 mmol/L Procalcitonin 3.86 ng/ml Hepatitis B Surface Antigen NEG Hepatitis B Surface Antibody POS Diagnostic Radiology: ct abd/pelvis non con > ? early ileus / sbo in jejunum kub/xr > no chest or abd path Assessment & Plan 37 y/o M w/ esrd admitted for mgt of abd pain and hyperkalemia esrd -full hd tomorrow as he has refused AMA more than one hour tx tonight hyperkalemia -recheck K, recheck ecg > recommend mgt w/ IV insulin +/- bicarbonate; calcium iv if ecg changing; would avoid albuterol (tachycardia), kayexalate ( constipation/esrd/abd pain), lasix (anuria) abd pain -per primary service anemia of chronci disease -above epo criteria; monitor q 48 hrs appreciate consult; will follow with you. care coordinated with dr steel.
[2017-10-14] MEDS: ONDANSETRON INJ 2 MG/ML 2 ML VIAL IV PRN (22:22)
[2017-10-14 23:07] LABS: CALCIUM 10.1 mg/dl (8.5-10.1); CREATININE 9.68 mg/dl (0.60-1.40); POTASSIUM 4.8 mmol/L (3.5-5.1)
[2017-10-15] VITALS (15 sets, daily range): BP systolic 85–148; BP diastolic 48–100; PULSE 68–111; TEMP 36.5–36.9; O2SAT 96–100
[2017-10-15] MEDS ORDERED: TRAMADOL HCL 50 MG TAB PO PRN (00:15)
[2017-10-15] MEDS: METRONIDAZOLE 500MG / NSS IV SCH ×3 (01:16→22:00)
[2017-10-15] MEDS: PROCHLORPERAZINE INJ 5 MG in SYRINGE 4 ML IV PRN ×3 (01:16→15:48)
[2017-10-15] MEDS: ONDANSETRON INJ 2 MG/ML 2 ML VIAL IV PRN ×2 (05:18→13:21)
[2017-10-15 07:29] LABS: BASO % 0.1 %; BASO ABS # 0.01 K/uL (0-0.2); HEMATOCRIT 41.7 % (42-52); HEMOGLOBIN 14.2 g/dL (14.0-18.0); IG# 0.04 K/uL (0.00-0.02); LYMPH % 10.1 %; LYMPH ABS # 1.12 K/uL (1.2-3.4); MEAN CELL VOLUME 93.1 fL (80-100); MEAN CORPUSCULAR HEMOGLOBIN 31.7 pg (25-34); MEAN CORPUSCULAR HGB CONC 34.1 g/dl (32-36); MEAN PLATELET VOLUME 11.6 fL (7.4-10.4); MONO % 8.3 %; MONO ABS # 0.92 K/uL (0.11-0.59); NEUT % 81.1 %; PLATELET COUNT 133 K/uL (130-400); RED CELL DISTRIBUTION WIDTH CV 15.7 % (11.5-14.5); RED CELL DISTRIBUTION WIDTH SD 52.9 fL (36.4-46.3); WHITE BLOOD COUNT 11.09 K/uL (4.8-10.8)
[2017-10-15] MEDS: CARVEDILOL 25 MG TAB PO SCH ×2 (07:30→15:57)
[2017-10-15] MEDS: SEVELAMER HYDROCH 800 MG TAB PO SCH ×3 (07:30→15:57)
[2017-10-15] MEDS ORDERED: HEPARIN SOD (PORCINE) 1000 UNIT/ML 10 ML VIAL IV SCH ×2 (07:45)
[2017-10-15 07:50] LABS: ALBUMIN 4.1 gm/dl (3.4-5.0); CALCIUM 9.3 mg/dl (8.5-10.1); PHOSPHORUS 7.2 mg/dl (2.5-4.9); POTASSIUM 5.5 mmol/L (3.5-5.1); TOTAL PROTEIN 9.6 gm/dl (6.4-8.2)
[2017-10-15 07:52] LABS: CREATININE 10.8 mg/dl (0.60-1.40)
[2017-10-15] MEDS: CINACALCET: ORDER AWAITING ACTION SCH ×3 (08:00→22:29)
[2017-10-15] MEDS: LABETALOL HCL 100 MG TAB PO SCH ×2 (08:08→21:00)
[2017-10-15] MEDS: CLONIDINE HCL 0.1 MG TAB PO SCH ×3 (08:08→21:00)
[2017-10-15] MEDS: ALPRAZOLAM 0.5 MG TAB PO PRN (08:15)
--- NOTE | 2017-10-15 08:49 | DIAGNOSTIC IMAGING REPORT ---
KUB CLINICAL HISTORY: N/V, abd pain COMPARISON STUDY: CT scan dated 10/14/2017 FINDINGS: There is no evidence of pathologic bowel dilatation. There are calcific densities projected over the right iliac bone. These were described in the prior CT scan and are felt to be dystrophic calcifications possibly secondary to a prior to transplant. IMPRESSION: 1. No evidence of pathologic bowel dilatation 2. Dystrophic calcifications within the right lower quadrant Electronically signed by: Luis Daniel Perkins M.D. 10/15/2017 8:47 AM Dictated Date/Time: 10/15/2017 8:46 AM
[2017-10-15] MEDS: PANTOprazole SOD 40 MG TAB PO SCH ×2 (09:00→21:00)
[2017-10-15] MEDS: METOCLOPRAMIDE HCL 10 MG TAB PO SCH ×3 (09:00→21:00)
[2017-10-15] MEDS: GABAPENTIN 100 MG CAP PO SCH ×3 (09:00→21:00)
[2017-10-15] MEDS: CHOLECALCIFEROL 1000 INTER.UNIT TAB PO SCH (09:00)
[2017-10-15] MEDS: HEPARIN SOD 5000 UNIT/0.5 ML CARP SQ SCH ×2 (09:00→21:00)
[2017-10-15] MEDS: BuPROPion SR 150 MG TABCR PO SCH ×2 (09:00→17:00)
[2017-10-15] MEDS: SERTRALINE HCL 50 MG TAB PO SCH (09:00)
[2017-10-15] MEDS: ASPIRIN 81 MG ECTAB PO SCH (09:00)
--- NOTE | 2017-10-15 10:49 | Dialysis Progress Note ---
Nephrology Dialysis Note Date of Service: Oct 15, 2017. Subjective seen on HD this am about 10 min ago b/c he is coming off early d/t uncontrolled abd and back pain. nursing reports he was literally standing up from bed and could not otherwise stay still. had compazine dose at start of hd IV but now w / N. had 1.5 hrs hd and 1 L UF; primary service aware. Objective Date Time Temp Pulse Resp B/P (MAP) Pulse Ox O2 Delivery O2 Flow Rate FiO2 10/15/17 10:00 102 103/69 10/15/17 09:45 76 107/71 10/15/17 09:30 87 118/57 10/15/17 09:15 71 131/62 10/15/17 09:00 68 147/72 10/15/17 08:50 36.5 90 148/79 (102) 10/15/17 07:19 36.6 81 20 130/93 (105) 98 Room Air 10/15/17 05:11 133/90 (104) 10/15/17 04:00 Room Air 10/15/17 03:20 36.8 77 16 148/100 (116) 98 Room Air 10/15/17 00:00 Room Air 10/14/17 22:55 37.1 97 16 119/81 (94) 92 Room Air 10/14/17 20:00 Room Air 10/14/17 19:15 36.8 94 18 112/84 (93) 100 Room Air 10/14/17 18:04 36.9 96 22 168/136 96 Room Air 10/14/17 17:10 36.9 104 146/44 (78) 10/14/17 17:00 102 135/87 10/14/17 16:45 92 128/84 10/14/17 16:30 88 122/68 10/14/17 16:15 82 148/87 10/14/17 16:07 36.9 90 173/102 (125) 10/14/17 16:07 92 167/110 10/14/17 15:32 84 18 163/126 98 Room Air 10/14/17 14:28 122 20 141/97 98 Room Air 10/14/17 13:58 120 10/14/17 13:46 114 16 142/112 97 Room Air 10/14/17 13:21 104 20 140/97 98 Room Air 10/14/17 12:50 74 18 166/120 98 Room Air 10/14/17 11:39 82 20 144/113 100 Room Air Physical Exam: General Appearance: WD/WN, moderate distress,sitting on side of bed tearful, not still ENT: hearing grossly normal Neck: supple Respiratory/Chest: normal breath sounds, no respiratory distress Cardiovascular: no edema, + tachycardia regular in low 100s Abdomen: normal bowel sounds, soft, + guarding, + tenderness Extremities: non-tender, + pertinent finding (avf LUE + t/b) Neurologic/Psych: alert, normal mood/affect, oriented x 3 Skin: no jaundice, warm/dry, no rash Current Inpatient Medications Medications (Trade) Dose Ordered Sig/Betsy Route Start Time Stop Time Status Last Admin Dose Admin Acetaminophen (Tylenol Tab) 650 mg Q4H PRN PO 10/14/17 14:45 11/13/17 14:44 Ondansetron HCl (Zofran Inj) 4 mg Q6H PRN IV 10/14/17 14:45 11/13/17 14:44 10/15/17 05:18 4 MG Alprazolam (Xanax Tab) 0.5 mg QAM PRN PO 10/14/17 15:00 11/13/17 14:59 10/15/17 08:15 0.5 MG Amitriptyline HCl (Elavil Tab) 25 mg HS PO 10/14/17 21:00 11/13/17 20:59 10/14/17 20:28 25 MG Aspirin (Ecotrin Tab) 81 mg DAILY PO 10/15/17 09:00 11/14/17 08:59 Carvedilol (Coreg Tab) 25 mg BIDM PO 10/14/17 16:45 11/13/17 17:59 10/14/17 17:43 25 MG Cholecalciferol (Vitamin D Tab) 3,000 inter.unit DAILY PO 10/15/17 09:00 11/14/17 08:59 Gabapentin (Neurontin Cap) 100 mg TID PO 10/14/17 21:00 11/13/17 20:59 10/14/17 20:29 100 MG Hydralazine HCl (Apresoline Tab) 50 mg TID PO 10/14/17 21:00 11/13/17 20:59 Labetalol HCl (Normodyne Tab) 100 mg BID PO 10/14/17 21:00 11/13/17 20:59 Metoclopramide HCl (Reglan Tab) 10 mg TID PO 10/14/17 21:00 11/13/17 20:59 10/14/17 20:29 10 MG Pantoprazole Sodium (Protonix Tab) 40 mg BID PO 10/14/17 21:00 11/13/17 20:59 10/14/17 20:29 40 MG Sertraline HCl (Zoloft Tab) 50 mg DAILY PO 10/15/17 09:00 11/14/17 08:59 Trazodone HCl (Desyrel Tab) 50 mg HS PO 10/14/17 21:00 11/13/17 20:59 10/14/17 20:28 50 MG Bupropion HCl (Wellbutrin-Sr Tab) 150 mg BID17 PO 10/14/17 17:00 11/13/17 16:59 10/14/17 17:46 150 MG Miscellaneous Information (Order Awaiting Action) 1 ea QS N/A 10/14/17 16:00 11/13/17 15:59 Clonidine HCl (Catapres Tab) 0.4 mg TID PO 10/14/17 21:00 11/13/17 20:59 Sevelamer HCl (Renagel Tab) 3,200 mg TIDM PO 10/14/17 16:45 11/13/17 17:59 10/14/17 17:44 3,200 MG Ciprofloxacin (Consult) 1 ea UD PRN N/A 10/14/17 17:45 11/13/17 17:44 Metronidazole (Consult) 1 ea UD PRN N/A 10/14/17 17:45 11/13/17 17:44 Ciprofloxacin/ Dextrose 400 mg/ Prmx 200 ml @ 100 mls/hr Q24H IV 10/14/17 18:00 10/24/17 17:59 10/14/17 18:23 100 MLS/HR Metronidazole 500 mg/Prmx 100 ml @ 100 mls/hr Q8H IV 10/14/17 18:00 10/24/17 17:59 10/15/17 01:16 100 MLS/HR Heparin Sodium (Porcine) (Heparin Sq 5000 Unit/0.5ml) 5,000 unit Q12 SQ 3/28/18 09:00 11/14/17 08:59 Tramadol HCl (Ultram Tab) not relieved ... Q6H PRN PO 10/15/17 00:15 11/14/17 00:14 10/15/17 03:20 50 MG Prochlorperazine Edisylate 5 mg/ Syringe 5 ml @ 5 mls/min Q6H PRN IV 10/15/17 00:30 11/14/17 00:29 10/15/17 09:13 5 MLS/MIN Heparin Sodium (Porcine) (Heparin Iv Bolus) 1,000 unit ONE IV 10/15/17 07:45 10/15/17 23:59 Last 24 Hours Test 10/14/17 11:40 10/14/17 15:55 10/14/17 22:05 10/15/17 07:07 White Blood Count 13.28 K/uL 11.09 K/uL Red Blood Count 4.87 M/uL 4.48 M/uL Hemoglobin 15.6 g/dL 14.2 g/dL Hematocrit 44.7 % 41.7 % Mean Corpuscular Volume 91.8 fL 93.1 fL Mean Corpuscular Hemoglobin 32.0 pg 31.7 pg Mean Corpuscular Hemoglobin Concent 34.9 g/dl 34.1 g/dl Platelet Count 186 K/uL 133 K/uL Mean Platelet Volume 11.2 fL 11.6 fL Neutrophils (%) (Auto) 84.2 % 81.1 % Lymphocytes (%) (Auto) 7.5 % 10.1 % Monocytes (%) (Auto) 7.9 % 8.3 % Eosinophils (%) (Auto) 0.0 % 0.0 % Basophils (%) (Auto) 0.1 % 0.1 % Neutrophils # (Auto) 11.18 K/uL 9.00 K/uL Lymphocytes # (Auto) 1.00 K/uL 1.12 K/uL Monocytes # (Auto) 1.05 K/uL 0.92 K/uL Eosinophils # (Auto) 0.00 K/uL 0.00 K/uL Basophils # (Auto) 0.01 K/uL 0.01 K/uL RDW Standard Deviation 51.5 fL 52.9 fL RDW Coefficient of Variation 15.7 % 15.7 % Immature Granulocyte % (Auto) 0.3 % 0.4 % Immature Granulocyte # (Auto) 0.04 K/uL 0.04 K/uL Prothrombin Time 11.6 SECONDS Prothromb Time International Ratio 1.1 Sodium Level 125 mmol/L 131 mmol/L 127 mmol/L Potassium Level 6.7 mmol/L 4.8 mmol/L 5.5 mmol/L Chloride Level 88 mmol/L 91 mmol/L 90 mmol/L Carbon Dioxide Level 22 mmol/L 20 mmol/L 21 mmol/L Anion Gap 15.0 mmol/L 20.0 mmol/L 16.0 mmol/L Blood Urea Nitrogen 41 mg/dl 42 mg/dl 49 mg/dl Creatinine 10.40 mg/dl 9.68 mg/dl 10.80 mg/dl Est Creatinine Clear Calc Drug Dose 8.6 ml/min 8.9 ml/min 8.1 ml/min Estimated GFR () 6.4 7.0 6.2 Estimated GFR (Non- 5.6 6.1 5.3 BUN/Creatinine Ratio 3.9 4.3 4.5 Random Glucose 96 mg/dl 100 mg/dl 96 mg/dl Calcium Level 10.5 mg/dl 10.1 mg/dl 9.3 mg/dl Phosphorus Level 1.8 mg/dl 7.2 mg/dl Magnesium Level 2.6 mg/dl 2.3 mg/dl Total Bilirubin 0.6 mg/dl 0.6 mg/dl Aspartate Amino Transf (AST/SGOT) 19 U/L 21 U/L Alanine Aminotransferase (ALT/SGPT) 15 U/L 12 U/L Alkaline Phosphatase 149 U/L 132 U/L Total Protein 10.6 gm/dl 9.6 gm/dl Albumin 4.6 gm/dl 4.1 gm/dl Globulin 6.0 gm/dl 5.5 gm/dl Albumin/Globulin Ratio 0.8 0.7 Lipase 285 U/L Lactic Acid Level 1.7 mmol/L Procalcitonin 3.86 ng/ml 2.70 ng/ml Hepatitis B Surface Antigen NEG Hepatitis B Surface Antibody POS Direct Bilirubin 0.1 mg/dl Assessment & Plan 37 y/o M w/ esrd admitted for mgt of abd pain and hyperkalemia; also w/ hx of chronic back pain esrd -attempt full hd tomorrow as he has refused AMA more than 1.5 hr tx today -note that as outpt he gets heparin bolus only no maintenance infusions on tx d/ t post tx bleeding -did have full / uneventful tx on 10/13 hyperkalemia -improved this am; had IV insulin last evening w/ response in addition to short HD; had HD today -recheck in AM -agree w/ renal diet abd pain -per primary service -compazine not readily dialyzeable -on cipro/flagyl; imaging today not suggestive of SBO anemia of chronic disease -above epo criteria; monitor q 48 hrs appreciate consult; will follow with you. care coordinated with dr caicedo.
[2017-10-15] MEDS ORDERED: HYDROmorphone INJ 2 MG/ML SYR/VIAL ONE (18:08)
[2017-10-15] MEDS: AMITRIPTYLINE HCL 25 MG TAB PO SCH (21:00)
[2017-10-15] MEDS: CIPROFLOXACIN 400MG / D5W IV SCH (21:00)
[2017-10-15] MEDS: TRAZODONE HCL 50 MG TAB PO SCH (21:00)
[2017-10-15] MEDS: HYDROmorphone INJ 2 MG/ML SYR/VIAL IV PRN (22:37)
[2017-10-16] VITALS (24 sets, daily range): BP systolic 64–127; BP diastolic 36–84; PULSE 68–99; TEMP 36.5–37.1; O2SAT 94–100
[2017-10-16] MEDS ORDERED: NURSING VERBAL MED ORDER ONE ×2 (02:00→04:15)
[2017-10-16] MEDS: HYDROmorphone INJ 2 MG/ML SYR/VIAL IV PRN (02:40)
[2017-10-16] MEDS ORDERED: SODIUM CHLORIDE 0.9% 250ML 250 ML IV ONE (04:45)
[2017-10-16] MEDS ORDERED: HYDROmorphone INJ 0.5 MG/0.5 ML SYR IV PRN (05:00)
--- NOTE | 2017-10-16 05:11 | Progress Note ---
Medicine Progress Note Date & Time of Visit: Oct 15, 2017 at ~ 18:00 . Subjective Late entry secondary to computer downtime. Continues to have severe abdominal pain. Pain described as severe epigastric pain that radiates to his back and is associated with nausea and vomiting. Passing flatus, but no stool. No chest pain. No cough or shortness of breath. Only tolerated partial dialysis treatment today. . Objective Vital signs this morning at 0719: Temp 36.6, pulse 81, respirations 20, blood pressure 130/93 . Physical Exam: General-lying in bed, crying, appears to be uncomfortable Lungs- clear to auscultation; no respiratory distress Cardiovascular- RRR; no gallop appreciated; no JVD; no pretibial edema Abdomen-quiet bowel sounds, nondistended, soft, moderate epigastric tenderness with guarding, but no rebound Extremities- no cyanosis; no calf tenderness Neuro- alert, oriented Skin- warm & dry . Laboratory Results: Last 24 Hours Test 10/15/17 07:07 10/16/17 04:03 10/16/17 04:04 White Blood Count 11.09 K/uL Red Blood Count 4.48 M/uL Hemoglobin 14.2 g/dL Hematocrit 41.7 % Mean Corpuscular Volume 93.1 fL Mean Corpuscular Hemoglobin 31.7 pg Mean Corpuscular Hemoglobin Concent 34.1 g/dl Platelet Count 133 K/uL Mean Platelet Volume 11.6 fL Neutrophils (%) (Auto) 81.1 % Lymphocytes (%) (Auto) 10.1 % Monocytes (%) (Auto) 8.3 % Eosinophils (%) (Auto) 0.0 % Basophils (%) (Auto) 0.1 % Neutrophils # (Auto) 9.00 K/uL Lymphocytes # (Auto) 1.12 K/uL Monocytes # (Auto) 0.92 K/uL Eosinophils # (Auto) 0.00 K/uL Basophils # (Auto) 0.01 K/uL RDW Standard Deviation 52.9 fL RDW Coefficient of Variation 15.7 % Immature Granulocyte % (Auto) 0.4 % Immature Granulocyte # (Auto) 0.04 K/uL Sodium Level 127 mmol/L Potassium Level 5.5 mmol/L Chloride Level 90 mmol/L Carbon Dioxide Level 21 mmol/L Anion Gap 16.0 mmol/L Blood Urea Nitrogen 49 mg/dl Creatinine 10.80 mg/dl Est Creatinine Clear Calc Drug Dose 8.1 ml/min Estimated GFR () 6.2 Estimated GFR (Non- 5.3 BUN/Creatinine Ratio 4.5 Random Glucose 96 mg/dl Calcium Level 9.3 mg/dl Phosphorus Level 7.2 mg/dl Magnesium Level 2.3 mg/dl Total Bilirubin 0.6 mg/dl Direct Bilirubin 0.1 mg/dl Aspartate Amino Transf (AST/SGOT) 21 U/L Alanine Aminotransferase (ALT/SGPT) 12 U/L Alkaline Phosphatase 132 U/L Total Protein 9.6 gm/dl Albumin 4.1 gm/dl Globulin 5.5 gm/dl Albumin/Globulin Ratio 0.7 Procalcitonin 2.70 ng/ml Date/Time Source Procedure Growth Status 10/16/17 04:03 Blood Blood Culture Pending Ordered 10/16/17 04:03 Blood Blood Culture Pending Ordered Assessment & Plan ABDOMINAL PAIN Experiencing severe epigastric pain with nausea and vomiting. No apparent obstruction per abdominal films. CT demonstrated nonspecific dilatation of proximal jejunum with air-fluid levels. No evidence of obstruction, free air, diverticulitis, appendicitis. History of pancreatitis. Serum lipase of admission was normal. LFTs were normal except for minimally elevated alkaline phosphatase of 132. Analgesics and anti-emetics as needed. Advance diet as tolerated. CORONARY ARTERY DISEASE No anginal symptoms. Continue aspirin, beta parul. HYPERTENSION Labile hypertension, currently on carvedilol, labetalol, hydralazine, clonidine. Follow and titrate therapy. CKD V / HYPERKALEMIA Serum potassium date of admission was 6.7. Received partial dialysis, but cannot complete treatment. Potassium this morning 5.5. Nephrology consulted for hemodialysis management VTE PROPHYLAXIS Moderate risk for VTE. SQ heparin. Ambulate. RESUSCITATION STATUS Full code. DISPOSITION Expected discharge to home. Internal Medicine follow-up with Dr. Fanny Chen. Nephrology follow-up with Dr. Restrepo. . Current Inpatient Medications: Current Inpatient Medications Medications (Trade) Dose Ordered Sig/Betsy Route Start Time Stop Time Status Last Admin Dose Admin Acetaminophen (Tylenol Tab) 650 mg Q4H PRN PO 10/14/17 14:45 11/13/17 14:44 Ondansetron HCl (Zofran Inj) 4 mg Q6H PRN IV 10/14/17 14:45 11/13/17 14:44 10/15/17 13:21 4 MG Alprazolam (Xanax Tab) 0.5 mg QAM PRN PO 10/14/17 15:00 11/13/17 14:59 10/15/17 08:15 0.5 MG Amitriptyline HCl (Elavil Tab) 25 mg HS PO 10/14/17 21:00 11/13/17 20:59 10/15/17 21:00 25 MG Aspirin (Ecotrin Tab) 81 mg DAILY PO 10/15/17 09:00 11/14/17 08:59 Carvedilol (Coreg Tab) 25 mg BIDM PO 10/14/17 16:45 11/13/17 17:59 10/14/17 17:43 25 MG Cholecalciferol (Vitamin D Tab) 3,000 inter.unit DAILY PO 10/15/17 09:00 11/14/17 08:59 Gabapentin (Neurontin Cap) 100 mg TID PO 10/14/17 21:00 11/13/17 20:59 10/15/17 21:00 100 MG Hydralazine HCl (Apresoline Tab) 50 mg TID PO 10/14/17 21:00 11/13/17 20:59 10/15/17 21:00 50 MG Labetalol HCl (Normodyne Tab) 100 mg BID PO 10/14/17 21:00 11/13/17 20:59 10/15/17 21:00 100 MG Metoclopramide HCl (Reglan Tab) 10 mg TID PO 10/14/17 21:00 11/13/17 20:59 10/15/17 21:00 10 MG Pantoprazole Sodium (Protonix Tab) 40 mg BID PO 10/14/17 21:00 11/13/17 20:59 10/15/17 21:00 40 MG Sertraline HCl (Zoloft Tab) 50 mg DAILY PO 10/15/17 09:00 11/14/17 08:59 Trazodone HCl (Desyrel Tab) 50 mg HS PO 10/14/17 21:00 11/13/17 20:59 10/15/17 21:00 50 MG Bupropion HCl (Wellbutrin-Sr Tab) 150 mg BID17 PO 10/14/17 17:00 11/13/17 16:59 10/14/17 17:46 150 MG Miscellaneous Information (Order Awaiting Action) 1 ea QS N/A 10/14/17 16:00 11/13/17 15:59 Clonidine HCl (Catapres Tab) 0.4 mg TID PO 10/14/17 21:00 11/13/17 20:59 10/15/17 21:00 0.4 MG Sevelamer HCl (Renagel Tab) 3,200 mg TIDM PO 10/14/17 16:45 11/13/17 17:59 10/14/17 17:44 3,200 MG Ciprofloxacin (Consult) 1 ea UD PRN N/A 10/14/17 17:45 11/13/17 17:44 Metronidazole (Consult) 1 ea UD PRN N/A 10/14/17 17:45 11/13/17 17:44 Ciprofloxacin/ Dextrose 400 mg/ Prmx 200 ml @ 100 mls/hr Q24H IV 10/14/17 18:00 10/24/17 17:59 10/15/17 21:00 100 MLS/HR Metronidazole 500 mg/Prmx 100 ml @ 100 mls/hr Q8H IV 10/14/17 18:00 10/24/17 17:59 10/15/17 22:00 100 MLS/HR Heparin Sodium (Porcine) (Heparin Sq 5000 Unit/0.5ml) 5,000 unit Q12 SQ 10/15/17 09:00 11/14/17 08:59 10/15/17 21:00 5,000 UNIT Tramadol HCl (Ultram Tab) not relieved ... Q6H PRN PO 10/15/17 00:15 11/14/17 00:14 10/15/17 03:20 50 MG Prochlorperazine Edisylate 5 mg/ Syringe 5 ml @ 5 mls/min Q6H PRN IV 10/15/17 00:30 11/14/17 00:29 10/15/17 15:48 5 MLS/MIN Sodium Chloride 250 ml @ 250 mls/hr Q1H ONCE IV 10/16/17 04:45 10/16/17 05:44 Hydromorphone HCl (Dilaudid Inj) 0.5 mg Q3H PRN IV 10/16/17 05:00 10/30/17 04:59
[2017-10-16 05:29] LABS: BASO % 0.1 %; BASO ABS # 0.01 K/uL (0-0.2); EOS % 0.9 %; EOS ABS # 0.08 K/uL (0-0.5); HEMATOCRIT 38.7 % (42-52); HEMOGLOBIN 12.9 g/dL (14.0-18.0); IG# 0.02 K/uL (0.00-0.02); LYMPH % 20.5 %; LYMPH ABS # 1.85 K/uL (1.2-3.4); MEAN CELL VOLUME 94.9 fL (80-100); MEAN CORPUSCULAR HEMOGLOBIN 31.6 pg (25-34); MEAN CORPUSCULAR HGB CONC 33.3 g/dl (32-36); MEAN PLATELET VOLUME 11.4 fL (7.4-10.4); MONO % 11.4 %; MONO ABS # 1.03 K/uL (0.11-0.59); NEUT % 66.9 %; NEUT ABS # 6.03 K/uL (1.4-6.5); PLATELET COUNT 124 K/uL (130-400); RED CELL DISTRIBUTION WIDTH CV 15.6 % (11.5-14.5); WHITE BLOOD COUNT 9.02 K/uL (4.8-10.8)
[2017-10-16] MEDS: METRONIDAZOLE 500MG / NSS IV SCH (05:59)
[2017-10-16 06:00] LABS: ALBUMIN 3.6 gm/dl (3.4-5.0); TOTAL PROTEIN 8.7 gm/dl (6.4-8.2)
[2017-10-16 07:12] LABS: POTASSIUM 4.8 mmol/L (3.5-5.1)
[2017-10-16] MEDS: CARVEDILOL 25 MG TAB PO SCH ×2 (07:30→16:55)
[2017-10-16] MEDS: CINACALCET: ORDER AWAITING ACTION SCH ×2 (08:00→23:45)
[2017-10-16] MEDS: LABETALOL HCL 100 MG TAB PO SCH (08:09)
[2017-10-16] MEDS: HEPARIN SOD 5000 UNIT/0.5 ML CARP SQ SCH ×2 (08:09→19:30)
[2017-10-16] MEDS: SEVELAMER HYDROCH 800 MG TAB PO SCH ×3 (08:11→16:56)
[2017-10-16] MEDS: CHOLECALCIFEROL 1000 INTER.UNIT TAB PO SCH (08:12)
[2017-10-16] MEDS: PANTOprazole SOD 40 MG TAB PO SCH ×2 (08:13→19:29)
[2017-10-16] MEDS: METOCLOPRAMIDE HCL 10 MG TAB PO SCH (08:13)
[2017-10-16] MEDS: SERTRALINE HCL 50 MG TAB PO SCH (08:13)
[2017-10-16] MEDS: GABAPENTIN 100 MG CAP PO SCH ×3 (08:13→19:28)
[2017-10-16] MEDS: BuPROPion SR 150 MG TABCR PO SCH ×2 (08:14→16:55)
[2017-10-16] MEDS: ASPIRIN 81 MG ECTAB PO SCH (08:14)
[2017-10-16] MEDS: ALPRAZOLAM 0.5 MG TAB PO PRN (08:20)
[2017-10-16] MEDS: PROCHLORPERAZINE INJ 5 MG in SYRINGE 4 ML IV PRN ×2 (08:56→19:25)
[2017-10-16] MEDS: ALBUMIN HUMAN 25% 12.5 GM/50 ML VIAL IV SCH ×2 (08:59→10:55)
[2017-10-16] MEDS: HEPARIN SOD (PORCINE) 1000 UNIT/ML 10 ML VIAL IV SCH ×6 (09:22→19:27)
[2017-10-16] MEDS ORDERED: FLUMAZENIL 0.1 MG/1 ML 10 ML VIAL IV STA (10:11)
[2017-10-16] MEDS ORDERED: ALPRAZOLAM 0.25 MG TAB PO PRN (10:30)
[2017-10-16] MEDS: HYDROmorphone INJ 0.5 MG/0.5 ML SYR IV PRN ×2 (13:37→23:34)
[2017-10-16] MEDS: ONDANSETRON INJ 2 MG/ML 2 ML VIAL IV PRN (16:54)
--- NOTE | 2017-10-16 17:36 | Dialysis Progress Note ---
Nephrology Dialysis Note Date of Service: Oct 16, 2017. Subjective seen on HD this am about 10 am >> pt had been started on pain meds, had been conversant at about 0830 but was on HD hard to arouse and w/ borderline blood pressure. he ultimately responded w/ increased blood pressure (from 70s>90s systolic) and was ultimately given 700cc fluid during treatment. ultimately again came off tx early w/ ongoing n and abd pain. HR, BG, 02 sats were wnl. Objective Date Time Temp Pulse Resp B/P (MAP) Pulse Ox O2 Delivery O2 Flow Rate FiO2 10/16/17 16:26 Room Air 10/16/17 15:35 37.0 99 18 124/84 (97) 100 Room Air 10/16/17 14:39 Room Air 10/16/17 13:35 117/75 (89) 10/16/17 12:20 36.5 78 105/61 (76) 10/16/17 11:45 71 83/49 10/16/17 11:30 72 89/50 10/16/17 11:15 68 93/55 10/16/17 11:00 70 84/50 10/16/17 10:45 68 81/49 10/16/17 10:30 73 85/48 10/16/17 10:15 80 93/53 10/16/17 10:09 79 79/38 10/16/17 10:00 79 68/39 10/16/17 09:45 79 64/37 10/16/17 09:37 82 69/36 10/16/17 09:30 85 76/40 10/16/17 09:15 85 79/36 10/16/17 09:00 90 84/52 10/16/17 08:45 81 115/74 10/16/17 08:00 Room Air 10/16/17 07:00 36.7 87 19 78/49 (59) 97 Room Air 10/16/17 06:00 77/54 (62) 10/16/17 04:00 Room Air 10/16/17 03:34 36.7 96 22 77/55 (62) 94 Room Air 10/16/17 00:01 Room Air 10/15/17 23:35 36.6 87 18 85/48 (60) 96 Room Air 10/15/17 20:00 Room Air Physical Exam: General Appearance: WD/WN, at time of my exam somnolent but arouseable w/ noxious stimuli; BG and 02 sats wnl ENT: hearing grossly normal Neck: supple Respiratory/Chest: normal breath sounds, no respiratory distress Cardiovascular: no edema, RRR Abdomen: normal bowel sounds, soft, NT Extremities: non-tender, + pertinent finding (avf LUE + t/b) Neurologic/Psych: alert, confused w/ fluent nonsensical speech Skin: no jaundice, warm/dry, no rash Current Inpatient Medications Medications (Trade) Dose Ordered Sig/Betys Route Start Time Stop Time Status Last Admin Dose Admin Acetaminophen (Tylenol Tab) 650 mg Q4H PRN PO 10/14/17 14:45 11/13/17 14:44 Ondansetron HCl (Zofran Inj) 4 mg Q6H PRN IV 10/14/17 14:45 11/13/17 14:44 10/16/17 16:54 4 MG Amitriptyline HCl (Elavil Tab) 25 mg HS PO 10/14/17 21:00 11/13/17 20:59 10/15/17 21:00 25 MG Aspirin (Ecotrin Tab) 81 mg DAILY PO 10/15/17 09:00 11/14/17 08:59 10/16/17 08:14 81 MG Carvedilol (Coreg Tab) 25 mg BIDM PO 10/14/17 16:45 11/13/17 17:59 10/16/17 16:55 25 MG Cholecalciferol (Vitamin D Tab) 3,000 inter.unit DAILY PO 10/15/17 09:00 11/14/17 08:59 10/16/17 08:12 3,000 INTER.UNIT Gabapentin (Neurontin Cap) 100 mg TID PO 10/14/17 21:00 11/13/17 20:59 10/16/17 13:38 100 MG Hydralazine HCl (Apresoline Tab) 50 mg TID PO 10/14/17 21:00 11/13/17 20:59 Future Hold 10/15/17 21:00 50 MG Pantoprazole Sodium (Protonix Tab) 40 mg BID PO 10/14/17 21:00 11/13/17 20:59 10/16/17 08:13 40 MG Sertraline HCl (Zoloft Tab) 50 mg DAILY PO 10/15/17 09:00 11/14/17 08:59 10/16/17 08:13 50 MG Trazodone HCl (Desyrel Tab) 50 mg HS PO 10/14/17 21:00 11/13/17 20:59 10/15/17 21:00 50 MG Bupropion HCl (Wellbutrin-Sr Tab) 150 mg BID17 PO 10/14/17 17:00 11/13/17 16:59 10/16/17 16:55 150 MG Miscellaneous Information (Order Awaiting Action) 1 ea QS N/A 10/14/17 16:00 11/13/17 15:59 Clonidine HCl (Catapres Tab) 0.4 mg TID PO 10/14/17 21:00 11/13/17 20:59 Future Hold 10/15/17 21:00 0.4 MG Sevelamer HCl (Renagel Tab) 3,200 mg TIDM PO 10/14/17 16:45 11/13/17 17:59 10/16/17 16:56 3,200 MG Heparin Sodium (Porcine) (Heparin Sq 5000 Unit/0.5ml) 5,000 unit Q12 SQ 10/15/17 09:00 11/14/17 08:59 10/15/17 21:00 5,000 UNIT Tramadol HCl (Ultram Tab) not relieved ... Q6H PRN PO 10/15/17 00:15 11/14/17 00:14 10/15/17 03:20 50 MG Prochlorperazine Edisylate 5 mg/ Syringe 5 ml @ 5 mls/min Q6H PRN IV 10/15/17 00:30 11/14/17 00:29 10/16/17 08:56 5 MLS/MIN Heparin Sodium (Porcine) (Heparin Iv Bolus) 1,000 unit ONE IV 10/16/17 07:45 10/16/17 23:59 Albumin Human (Albumin 25%) 12.5 gm TODAY@0900,1030 IV 10/16/17 09:00 10/16/17 23:59 10/16/17 10:55 12.5 GM Alprazolam (Xanax Tab) 0.25 mg QAM PRN PO 10/16/17 10:30 11/13/17 14:59 Hydromorphone HCl (Dilaudid Inj) 0.25 mg Q3H PRN IV 10/16/17 10:30 10/30/17 04:59 10/16/17 13:37 0.25 MG Last 24 Hours Test 10/16/17 05:18 10/16/17 06:30 10/16/17 10:09 White Blood Count 9.02 K/uL Red Blood Count 4.08 M/uL Hemoglobin 12.9 g/dL Hematocrit 38.7 % Mean Corpuscular Volume 94.9 fL Mean Corpuscular Hemoglobin 31.6 pg Mean Corpuscular Hemoglobin Concent 33.3 g/dl Platelet Count 124 K/uL Mean Platelet Volume 11.4 fL Neutrophils (%) (Auto) 66.9 % Lymphocytes (%) (Auto) 20.5 % Monocytes (%) (Auto) 11.4 % Eosinophils (%) (Auto) 0.9 % Basophils (%) (Auto) 0.1 % Neutrophils # (Auto) 6.03 K/uL Lymphocytes # (Auto) 1.85 K/uL Monocytes # (Auto) 1.03 K/uL Eosinophils # (Auto) 0.08 K/uL Basophils # (Auto) 0.01 K/uL RDW Standard Deviation 54.0 fL RDW Coefficient of Variation 15.6 % Immature Granulocyte % (Auto) 0.2 % Immature Granulocyte # (Auto) 0.02 K/uL Sodium Level 126 mmol/L Potassium Level mmol/L 4.8 mmol/L Chloride Level 93 mmol/L Carbon Dioxide Level 21 mmol/L Anion Gap 13.0 mmol/L Blood Urea Nitrogen 53 mg/dl Creatinine 11.00 mg/dl Est Creatinine Clear Calc Drug Dose 7.9 ml/min Estimated GFR () 6.0 Estimated GFR (Non- 5.2 BUN/Creatinine Ratio 4.9 Random Glucose 97 mg/dl Osmolality 290 mOsm/kg Lactic Acid Level 1.2 mmol/L Calcium Level 9.0 mg/dl Magnesium Level mg/dl 2.3 mg/dl Total Bilirubin 0.5 mg/dl Aspartate Amino Transf (AST/SGOT) U/L 15 U/L Alanine Aminotransferase (ALT/SGPT) 16 U/L Alkaline Phosphatase 117 U/L Total Protein 8.7 gm/dl Albumin 3.6 gm/dl Globulin 5.1 gm/dl Albumin/Globulin Ratio 0.7 Amylase Level 73 U/L Lipase 241 U/L Bedside Glucose 97 mg/dl Date/Time Source Procedure Growth Status 10/16/17 05:18 Blood Blood Culture Pending Received 10/16/17 04:43 Blood Blood Culture Pending Received Assessment & Plan 37 y/o M w/ esrd admitted for mgt of abd pain and hyperkalemia; also w/ hx of chronic back pain. issues on 10/16 w/ severe hypotension and altered MS < these improved w/ fluids and supportive care. esrd -note that as outpt he gets heparin bolus only no maintenance infusions on tx d/ t post tx bleeding -did have full / uneventful tx on Mon 10/13 << this was his last tx. will attempt again in am as it is his regular day hyperkalemia -acceptable this am abd pain -per primary service -compazine not readily dialyzeable -on cipro/flagyl; imaging today not suggestive of SBO anemia of chronic disease -above epo criteria; monitor q 48 hrs appreciate consult; will follow with you. care coordinated with dr caicedo.
[2017-10-16] MEDS: TRAZODONE HCL 50 MG TAB PO SCH (19:28)
[2017-10-16] MEDS: AMITRIPTYLINE HCL 25 MG TAB PO SCH (19:28)
--- NOTE | 2017-10-16 19:53 | Progress Note ---
Medicine Progress Note Date & Time of Visit: Oct 16, 2017 at 08:20 . Subjective Initially seen at 08:20 and reevaluated multiple times. Received IV hydromorphone last evening for severe abdominal pain. Subsequently became hypotensive. Received IV NSS bolus. No fever or signs of sepsis. This morning, still hypotensive but alert and appeared to be doing well. Ongoing abdominal pain. Nausea and vomiting improved. No diarrhea. No fever. No chest pain, cough, shortness of breath. Later in the morning the patient was undergoing hemodialysis. He requested alprazolam prior to the procedure. During dialysis he became unresponsive. Blood pressures were low. Received boluses of NSS with improvement of his hemodynamics and mentation. Flumazenil was ordered, but not administered. . Objective Last 8 Hrs Date Time Temp Pulse Resp B/P (MAP) Pulse Ox O2 Delivery O2 Flow Rate FiO2 10/16/17 19:45 37.1 86 16 121/75 (90) 97 Room Air 10/16/17 19:40 100 Room Air 10/16/17 16:26 Room Air 10/16/17 15:35 37.0 99 18 124/84 (97) 100 Room Air 10/16/17 14:39 Room Air 10/16/17 13:35 117/75 (89) 10/16/17 12:20 36.5 78 105/61 (76) Physical Exam: Exam @ 08:20: General- lying in bed, no distress Lungs- clear to auscultation; no respiratory distress Cardiovascular- RRR; no gallop appreciated; no JVD; no pretibial edema Abdomen-quiet bowel sounds, nondistended, soft, mild epigastric tenderness with guarding, but no rebound Extremities- no cyanosis; no calf tenderness Neuro- alert, oriented Skin- warm & dry . Laboratory Results: Last 24 Hours Test 10/16/17 05:18 10/16/17 06:30 10/16/17 10:09 White Blood Count 9.02 K/uL Red Blood Count 4.08 M/uL Hemoglobin 12.9 g/dL Hematocrit 38.7 % Mean Corpuscular Volume 94.9 fL Mean Corpuscular Hemoglobin 31.6 pg Mean Corpuscular Hemoglobin Concent 33.3 g/dl Platelet Count 124 K/uL Mean Platelet Volume 11.4 fL Neutrophils (%) (Auto) 66.9 % Lymphocytes (%) (Auto) 20.5 % Monocytes (%) (Auto) 11.4 % Eosinophils (%) (Auto) 0.9 % Basophils (%) (Auto) 0.1 % Neutrophils # (Auto) 6.03 K/uL Lymphocytes # (Auto) 1.85 K/uL Monocytes # (Auto) 1.03 K/uL Eosinophils # (Auto) 0.08 K/uL Basophils # (Auto) 0.01 K/uL RDW Standard Deviation 54.0 fL RDW Coefficient of Variation 15.6 % Immature Granulocyte % (Auto) 0.2 % Immature Granulocyte # (Auto) 0.02 K/uL Sodium Level 126 mmol/L Potassium Level mmol/L 4.8 mmol/L Chloride Level 93 mmol/L Carbon Dioxide Level 21 mmol/L Anion Gap 13.0 mmol/L Blood Urea Nitrogen 53 mg/dl Creatinine 11.00 mg/dl Est Creatinine Clear Calc Drug Dose 7.9 ml/min Estimated GFR () 6.0 Estimated GFR (Non- 5.2 BUN/Creatinine Ratio 4.9 Random Glucose 97 mg/dl Osmolality 290 mOsm/kg Lactic Acid Level 1.2 mmol/L Calcium Level 9.0 mg/dl Magnesium Level mg/dl 2.3 mg/dl Total Bilirubin 0.5 mg/dl Aspartate Amino Transf (AST/SGOT) U/L 15 U/L Alanine Aminotransferase (ALT/SGPT) 16 U/L Alkaline Phosphatase 117 U/L Total Protein 8.7 gm/dl Albumin 3.6 gm/dl Globulin 5.1 gm/dl Albumin/Globulin Ratio 0.7 Amylase Level 73 U/L Lipase 241 U/L Bedside Glucose 97 mg/dl Date/Time Source Procedure Growth Status 10/16/17 05:18 Blood Blood Culture Pending Received 10/16/17 04:43 Blood Blood Culture Pending Received Assessment & Plan ABDOMINAL PAIN Experienced severe epigastric pain with nausea and vomiting. No apparent obstruction per abdominal films. CT demonstrated nonspecific dilatation of proximal jejunum with air-fluid levels. No evidence of obstruction, free air, diverticulitis, appendicitis. History of pancreatitis. Serum lipase normal x 2. LFTs were normal except for minimally elevated alkaline phosphatase of 132. Analgesics and anti-emetics as needed. Advance diet as tolerated. CORONARY ARTERY DISEASE No anginal symptoms. Continue aspirin, beta parul. HYPERTENSION Labile hypertension, currently on carvedilol, labetalol, hydralazine, clonidine. Blood pressures low after receiving hydrocodone. Holding hydralazine and clonidine. Currently receiving carvedilol and labetalol; can simplify regimen by discontinuing labetalol. Patient was markedly hypertensive on day of admission; subsequent hypotension. Suspect hypotension secondary to hydromorphone. However, consider possibility of noncompliance with antihypertensive medications at home with subsequent hypotension upon resumption of medications. Similar patterns have been noted with previous hospitalizations. CKD V / HYPERKALEMIA Serum potassium date of admission was 6.7. Received partial dialysis, but cannot complete treatment. Potassium this morning 4.8. Nephrology consulted for hemodialysis management SYMPTOM MANAGEMENT Patient reports severe abdominal pain and nausea at time of admission. CT demonstrated distended jejunum with air-fluid levels, but no other acute findings. At times, he is quite insistent that he receives analgesics, antiemetics, and benzodiazepines. He sometimes refuses to receive or continue dialysis unless he receives narcotic analgesics. He sometimes requests intravenous prochlorperazine when he objectively does not appear to be having any obvious nausea. One must be careful making assumptions or false accusations, but his symptoms and behavioral pattern suggests possibility of narcotic withdrawal. [place] prescription drug monitoring [place] queried; no recent narcotic prescriptions. Patient becomes upset and offended when asked about analgesic use as outpatient. Nevertheless, must consider possibility of illicit narcotic use as an outpatient with subsequent withdrawal when hospitalized. We will try our best to manage symptoms appropriately as necessary with caution to avoid overmedication. VTE PROPHYLAXIS Moderate risk for VTE. SQ heparin. Ambulate. RESUSCITATION STATUS Full code. DISPOSITION Expected discharge to home. Internal Medicine follow-up with Dr. Fanny Chen. Nephrology follow-up with Dr. Restrepo. . Current Inpatient Medications: Current Inpatient Medications Medications (Trade) Dose Ordered Sig/Betsy Route Start Time Stop Time Status Last Admin Dose Admin Acetaminophen (Tylenol Tab) 650 mg Q4H PRN PO 10/14/17 14:45 11/13/17 14:44 Ondansetron HCl (Zofran Inj) 4 mg Q6H PRN IV 10/14/17 14:45 11/13/17 14:44 10/16/17 16:54 4 MG Amitriptyline HCl (Elavil Tab) 25 mg HS PO 10/14/17 21:00 11/13/17 20:59 10/16/17 19:28 25 MG Aspirin (Ecotrin Tab) 81 mg DAILY PO 10/15/17 09:00 11/14/17 08:59 10/16/17 08:14 81 MG Carvedilol (Coreg Tab) 25 mg BIDM PO 10/14/17 16:45 11/13/17 17:59 10/16/17 16:55 25 MG Cholecalciferol (Vitamin D Tab) 3,000 inter.unit DAILY PO 10/15/17 09:00 11/14/17 08:59 10/16/17 08:12 3,000 INTER.UNIT Gabapentin (Neurontin Cap) 100 mg TID PO 10/14/17 21:00 11/13/17 20:59 10/16/17 19:28 100 MG Hydralazine HCl (Apresoline Tab) 50 mg TID PO 10/14/17 21:00 11/13/17 20:59 Future Hold 10/15/17 21:00 50 MG Pantoprazole Sodium (Protonix Tab) 40 mg BID PO 10/14/17 21:00 11/13/17 20:59 10/16/17 19:29 40 MG Sertraline HCl (Zoloft Tab) 50 mg DAILY PO 10/15/17 09:00 11/14/17 08:59 10/16/17 08:13 50 MG Trazodone HCl (Desyrel Tab) 50 mg HS PO 10/14/17 21:00 11/13/17 20:59 10/16/17 19:28 50 MG Bupropion HCl (Wellbutrin-Sr Tab) 150 mg BID17 PO 10/14/17 17:00 11/13/17 16:59 10/16/17 16:55 150 MG Miscellaneous Information (Order Awaiting Action) 1 ea QS N/A 10/14/17 16:00 11/13/17 15:59 Clonidine HCl (Catapres Tab) 0.4 mg TID PO 10/14/17 21:00 11/13/17 20:59 Future Hold 10/15/17 21:00 0.4 MG Sevelamer HCl (Renagel Tab) 3,200 mg TIDM PO 10/14/17 16:45 11/13/17 17:59 10/16/17 16:56 3,200 MG Heparin Sodium (Porcine) (Heparin Sq 5000 Unit/0.5ml) 5,000 unit Q12 SQ 10/15/17 09:00 11/14/17 08:59 10/15/17 21:00 5,000 UNIT Tramadol HCl (Ultram Tab) not relieved ... Q6H PRN PO 10/15/17 00:15 11/14/17 00:14 10/15/17 03:20 50 MG Prochlorperazine Edisylate 5 mg/ Syringe 5 ml @ 5 mls/min Q6H PRN IV 10/15/17 00:30 11/14/17 00:29 10/16/17 19:25 5 MLS/MIN Heparin Sodium (Porcine) (Heparin Iv Bolus) 1,000 unit ONE IV 10/16/17 07:45 10/16/17 23:59 Albumin Human (Albumin 25%) 12.5 gm TODAY@0900,1030 IV 10/16/17 09:00 10/16/17 23:59 10/16/17 10:55 12.5 GM Alprazolam (Xanax Tab) 0.25 mg QAM PRN PO 10/16/17 10:30 11/13/17 14:59 Hydromorphone HCl (Dilaudid Inj) 0.25 mg Q3H PRN IV 10/16/17 10:30 10/30/17 04:59 10/16/17 13:37 0.25 MG Heparin Sodium (Porcine) (Heparin Iv Bolus) 1,000 unit 0800 IV 10/17/17 08:00 10/17/17 12:00 Heparin Sodium (Porcine) (Heparin Iv Bolus) 400 unit Q1H IV 10/17/17 08:00 10/17/17 10:01
[2017-10-17] VITALS (24 sets, daily range): BP systolic 104–130; BP diastolic 56–88; PULSE 76–97; TEMP 36.5–37.1; O2SAT 95–97
[2017-10-17 06:44] LABS: HEMATOCRIT 33.8 % (42-52); HEMOGLOBIN 11.8 g/dL (14.0-18.0); MEAN CELL VOLUME 93.9 fL (80-100); MEAN CORPUSCULAR HEMOGLOBIN 32.8 pg (25-34); MEAN CORPUSCULAR HGB CONC 34.9 g/dl (32-36); RED CELL DISTRIBUTION WIDTH CV 15.4 % (11.5-14.5); RED CELL DISTRIBUTION WIDTH SD 53.2 fL (36.4-46.3); WHITE BLOOD COUNT 4.92 K/uL (4.8-10.8)
[2017-10-17 07:10] LABS: BASO % 0.2 %; BASO ABS # 0.01 K/uL (0-0.2); EOS ABS # 0.15 K/uL (0-0.5); IG# 0.01 K/uL (0.00-0.02); LYMPH % 22.4 %; MEAN PLATELET VOLUME 10.6 fL (7.4-10.4); MONO % 11.6 %; MONO ABS # 0.57 K/uL (0.11-0.59); NEUT % 62.6 %; NEUT ABS # 3.08 K/uL (1.4-6.5); PLATELET COUNT 91 K/uL (130-400)
[2017-10-17] MEDS: CARVEDILOL 25 MG TAB PO SCH ×2 (07:30→17:03)
[2017-10-17 07:33] LABS: CALCIUM 8.4 mg/dl (8.5-10.1); CREATININE 9.78 mg/dl (0.60-1.40); POTASSIUM 4.4 mmol/L (3.5-5.1)
[2017-10-17] MEDS ORDERED: HEPARIN SOD (PORCINE) 1000 UNIT/ML 10 ML VIAL IV SCH ×2 (08:00)
[2017-10-17] MEDS: CINACALCET: ORDER AWAITING ACTION SCH ×2 (08:00→17:03)
[2017-10-17] MEDS: HEPARIN SOD 5000 UNIT/0.5 ML CARP SQ SCH (09:00)
[2017-10-17] MEDS: CHOLECALCIFEROL 1000 INTER.UNIT TAB PO SCH (09:55)
[2017-10-17] MEDS: PANTOprazole SOD 40 MG TAB PO SCH (09:55)
[2017-10-17] MEDS: SERTRALINE HCL 50 MG TAB PO SCH (09:55)
[2017-10-17] MEDS: SEVELAMER HYDROCH 800 MG TAB PO SCH ×3 (09:56→17:03)
[2017-10-17] MEDS: BuPROPion SR 150 MG TABCR PO SCH ×2 (09:56→17:03)
[2017-10-17] MEDS: ASPIRIN 81 MG ECTAB PO SCH (09:56)
[2017-10-17] MEDS: GABAPENTIN 100 MG CAP PO SCH ×2 (09:56→14:00)
--- NOTE | 2017-10-17 12:54 | PROGRESS NOTE ---
DATE: 10/17/2017 DIALYSIS NOTE SUBJECTIVE: The patient was seen during dialysis and he is tolerating it very well, at this time dialysis fistula is working very good, good blood flow, no cramping and no issues with blood pressure being low, blood pressure now is 124/78, pulse rate 82 per minute. PHYSICAL EXAMINATION: HEENT: Mucous membrane is moist. NECK: Supple. No jugular venous distention. CHEST: Bilateral clear to auscultation. CARDIOVASCULAR: S1, S2 regular. ABDOMEN: Soft, nontender. EXTREMITIES: Shows no edema. LABORATORY TESTS: From this morning shows hemoglobin of 11.8, platelet count 91,000, it is on the declining trend. BUN 39, creatinine 9.78, sodium 131, and potassium 4.4. 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 At this time, he does not have any symptoms. Abdominal pain has seemed to subsided and is being managed by primary service. Potassium is within acceptable range. Will continue dialysis as prescribed. MTDD
--- NOTE | 2017-10-17 19:21 | Progress Note ---
Medicine Progress Note Date & Time of Visit: Oct 17, 2017 at 19:21 . Subjective Feels well. Abdominal pain, nausea, vomiting have resolved. No chest pain, cough, shortness of breath. Ambulating. Would like to be discharged. . Objective Last 8 Hrs Date Time Temp Pulse Resp B/P (MAP) Pulse Ox O2 Delivery O2 Flow Rate FiO2 10/17/17 16:00 95 Room Air 10/17/17 15:34 37.1 97 18 125/83 (97) 95 Room Air 10/17/17 14:40 36.6 83 128/85 (99) 10/17/17 14:00 92 130/80 10/17/17 13:45 85 123/88 10/17/17 13:30 89 113/75 10/17/17 13:15 89 113/75 10/17/17 13:00 85 116/79 10/17/17 12:45 86 126/72 10/17/17 12:30 82 113/62 10/17/17 12:15 82 124/78 10/17/17 12:00 80 117/73 10/17/17 11:45 80 117/73 10/17/17 11:30 80 117/73 Physical Exam: General- sitting on side of bed, no distress Lungs- clear to auscultation; no respiratory distress Cardiovascular- RRR; no gallop appreciated; no JVD; no pretibial edema Abdomen- normal bowel sounds, soft, nontender Extremities- no cyanosis; no calf tenderness Neuro- alert, oriented Skin- warm & dry . Laboratory Results: Last 24 Hours Test 10/17/17 06:30 White Blood Count 4.92 K/uL Red Blood Count 3.60 M/uL Hemoglobin 11.8 g/dL Hematocrit 33.8 % Mean Corpuscular Volume 93.9 fL Mean Corpuscular Hemoglobin 32.8 pg Mean Corpuscular Hemoglobin Concent 34.9 g/dl Platelet Count 91 K/uL Mean Platelet Volume 10.6 fL Neutrophils (%) (Auto) 62.6 % Lymphocytes (%) (Auto) 22.4 % Monocytes (%) (Auto) 11.6 % Eosinophils (%) (Auto) 3.0 % Basophils (%) (Auto) 0.2 % Neutrophils # (Auto) 3.08 K/uL Lymphocytes # (Auto) 1.10 K/uL Monocytes # (Auto) 0.57 K/uL Eosinophils # (Auto) 0.15 K/uL Basophils # (Auto) 0.01 K/uL RDW Standard Deviation 53.2 fL RDW Coefficient of Variation 15.4 % Immature Granulocyte % (Auto) 0.2 % Immature Granulocyte # (Auto) 0.01 K/uL Toxic Vacuolation OCCASIONAL Platelet Estimate DECREASED Giant Platelets 1+ Sodium Level 131 mmol/L Potassium Level 4.4 mmol/L Chloride Level 99 mmol/L Carbon Dioxide Level 22 mmol/L Anion Gap 10.0 mmol/L Blood Urea Nitrogen 39 mg/dl Creatinine 9.78 mg/dl Est Creatinine Clear Calc Drug Dose 9.1 ml/min Estimated GFR () 6.9 Estimated GFR (Non- 6.0 BUN/Creatinine Ratio 4.0 Random Glucose 85 mg/dl Calcium Level 8.4 mg/dl Assessment & Plan ABDOMINAL PAIN Experienced severe epigastric pain with nausea and vomiting. No apparent obstruction per abdominal films. CT demonstrated nonspecific dilatation of proximal jejunum with air-fluid levels. No evidence of obstruction, free air, diverticulitis, appendicitis. History of pancreatitis. Serum lipase normal x 2. LFTs were normal except for minimally elevated alkaline phosphatase of 132. Received analgesics and anti-emetics as needed. Diet advanced and tolerated. CORONARY ARTERY DISEASE No anginal symptoms. Continue aspirin, beta parul. HYPERTENSION Labile hypertension. Outpatient meds prior to admission = carvedilol, labetalol, hydralazine, clonidine, and apparently lisinopril although not on current clinic medication list. Initial blood pressure in the ED was 171/121. Patient was having abdominal pain at that time and blood pressure improved with intravenous fentanyl. Patient experienced subsequent hypotension, especially after receiving analgesics and/or antiemetics. Blood pressures were monitored and medications titrated. Prescription history reviewed with patient's outpatient pharmacist. Patient often does not get refills on schedule, raising concerns about compliance as an outpatient. Systolic blood pressures were running 120-130 on the day of discharge. Currently prescribed carvedilol and labetalol; can simplify regimen by discontinuing labetalol. Carvedilol 25 mg twice daily continued. Clonidine dose reduced to 0.2 mg twice daily. Hydralazine and lisinopril discontinued. Follow and titrate therapy. CKD V / HYPERKALEMIA Serum potassium date of admission was 6.7. Nephrology consulted for hemodialysis management Potassium day of discharge 4.4. Continue usual outpatient dialysis routine. SYMPTOM MANAGEMENT Patient reports severe abdominal pain and nausea at time of admission. CT demonstrated distended jejunum with air-fluid levels, but no other acute findings. At times, he is quite insistent that he receives analgesics, antiemetics, and benzodiazepines. He sometimes refused to receive or continue dialysis unless he receives narcotic analgesics. He sometimes requested intravenous prochlorperazine when he objectively did not appear to be having any obvious nausea. One must be careful making assumptions or false accusations, but his symptoms and behavioral pattern suggests possibility of narcotic withdrawal. [place] prescription drug monitoring program queried; no recent narcotic prescriptions. Patient becomes upset and offended when asked about analgesic use as outpatient. Nevertheless, must consider possibility of illicit narcotic use as an outpatient with subsequent withdrawal when hospitalized. Tried our best to manage symptoms appropriately as necessary with caution to avoid overmedication. VTE PROPHYLAXIS Moderate risk for VTE. SQ heparin. Ambulate. DISPOSITION Discharged to home. Internal Medicine follow-up with Dr. Fanny Chen. Nephrology follow-up with Dr. Restrepo. . Current Inpatient Medications: Current Inpatient Medications Medications (Trade) Dose Ordered Sig/Betsy Route Start Time Stop Time Status Last Admin Dose Admin Acetaminophen (Tylenol Tab) 650 mg Q4H PRN PO 10/14/17 14:45 11/13/17 14:44 Ondansetron HCl (Zofran Inj) 4 mg Q6H PRN IV 10/14/17 14:45 11/13/17 14:44 10/16/17 16:54 4 MG Amitriptyline HCl (Elavil Tab) 25 mg HS PO 10/14/17 21:00 11/13/17 20:59 10/16/17 19:28 25 MG Aspirin (Ecotrin Tab) 81 mg DAILY PO 10/15/17 09:00 11/14/17 08:59 10/17/17 09:56 81 MG Carvedilol (Coreg Tab) 25 mg BIDM PO 10/14/17 16:45 11/13/17 17:59 10/17/17 17:03 25 MG Cholecalciferol (Vitamin D Tab) 3,000 inter.unit DAILY PO 10/15/17 09:00 11/14/17 08:59 10/17/17 09:55 3,000 INTER.UNIT Gabapentin (Neurontin Cap) 100 mg TID PO 10/14/17 21:00 11/13/17 20:59 10/17/17 09:56 100 MG Hydralazine HCl (Apresoline Tab) 50 mg TID PO 10/14/17 21:00 11/13/17 20:59 Future Hold 10/15/17 21:00 50 MG Pantoprazole Sodium (Protonix Tab) 40 mg BID PO 10/14/17 21:00 11/13/17 20:59 10/17/17 09:55 40 MG Sertraline HCl (Zoloft Tab) 50 mg DAILY PO 10/15/17 09:00 11/14/17 08:59 10/17/17 09:55 50 MG Trazodone HCl (Desyrel Tab) 50 mg HS PO 10/14/17 21:00 11/13/17 20:59 10/16/17 19:28 50 MG Bupropion HCl (Wellbutrin-Sr Tab) 150 mg BID17 PO 10/14/17 17:00 11/13/17 16:59 10/17/17 17:03 150 MG Miscellaneous Information (Order Awaiting Action) 1 ea QS N/A 10/14/17 16:00 11/13/17 15:59 Clonidine HCl (Catapres Tab) 0.4 mg TID PO 10/14/17 21:00 11/13/17 20:59 Future Hold 10/15/17 21:00 0.4 MG Sevelamer HCl (Renagel Tab) 3,200 mg TIDM PO 10/14/17 16:45 11/13/17 17:59 10/17/17 17:03 3,200 MG Heparin Sodium (Porcine) (Heparin Sq 5000 Unit/0.5ml) 5,000 unit Q12 SQ 10/15/17 09:00 11/14/17 08:59 10/15/17 21:00 5,000 UNIT Tramadol HCl (Ultram Tab) not relieved ... Q6H PRN PO 10/15/17 00:15 11/14/17 00:14 10/15/17 03:20 50 MG Prochlorperazine Edisylate 5 mg/ Syringe 5 ml @ 5 mls/min Q6H PRN IV 10/15/17 00:30 11/14/17 00:29 10/16/17 19:25 5 MLS/MIN Alprazolam (Xanax Tab) 0.25 mg QAM PRN PO 10/16/17 10:30 11/13/17 14:59 10/17/17 09:55 0.25 MG Hydromorphone HCl (Dilaudid Inj) 0.25 mg Q3H PRN IV 10/16/17 10:30 10/30/17 04:59 10/16/17 23:34 0.25 MG
[2017-10-17] MEDS ORDERED: LSN20 PO (19:25)
[2017-10-17] MEDS ORDERED: CTP2 PO (19:27)
--- NOTE | 2017-10-17 19:33 | Discharge Instructions ---
Discharge Instructions Date of Service Oct 17, 2017. Admission Reason for Admission: abdominal pain, high potassium level . Discharge Discharge Diagnosis / Problem: abdominal pain, high potassium level Discharge Goals Goal(s): Decrease discomfort, Improve disease control Activity Recommendations Activity Limitations: resume your previous activity . Instructions / Follow-Up Instructions / Follow-Up APPOINTMENTS: DIALYSIS Continue treatments on Fri-Fri-Fri INTERNAL MEDICINE Dr. Fanny Chen. Office will contact you with appointment for next week. NEPHROLOGY Dr. Restrepo OTHER INSTRUCTIONS: Your blood pressures were too high, then too low. They were good on day of discharge. Continue carvedilol (Coreg) 25 mg twice a day. Reduce clonidine (Catapres) to 0.2 mg twice a day. Stop labetalol. Stop lisinopril. Stop hydralazine. (Don't throw any medications away because they may need to be restarted.) Seek medical attention if you have: * temperature above 101 * chest pain or trouble breathing * abdominal pain, nausea, vomiting * diarrhea, dark stools or bloody stools * any unanswered questions or concerns Call 911 if symptoms are severe. Call if you have any questions or problems. You can reach a [facility] hospitalist on duty at [facility] 24 hours a day by calling [phone]. Please take good care of yourself. Shayne Saavedra . Current Hospital Diet Patient's current hospital diet: Renal Diet Discharge Diet Recommended Diet: Renal Diet Pending Studies Studies pending at discharge: no Medical Emergencies . Who to Call and When: Medical Emergencies: If at any time you feel your situation is an emergency, please call 911 immediately. . Non-Emergent Contact Non-Emergency issues call your: Primary Care Provider, Hospital Doctor, Strategic Partnership Manager . . "Provider Documentation" section prepared by Shayne Saavedra. . [place] Drug Monitoring Program Search Results: patient reviewed within database, no issues identified (no recent narcotic Rx's)
--- NOTE | 2017-10-20 05:35 | Discharge Summary ---
Discharge Summary Date of Service Oct 20, 2017. Discharge Summary Admission Date: Oct 14, 2017 at 14:27 Discharge Date: Oct 17, 2017 Discharge Disposition: Home Principal Diagnosis: CKD V with hyperkalemia . Secondary Diagnoses/Problems: OTHER ACUTE / SECONDARY DIAGNOSES: hypertensive urgency abdominal pain Chronic and Resolved Medical Problems: (1) Anxiety Status: Chronic (2) CAD (coronary artery disease) Permanent Comment: s/p stent placement Status: Chronic (3) Chronic kidney disease (CKD), stage V Permanent Comment: history glomerulonephritis Status: Chronic (4) Depression Status: Chronic (5) Dialysis patient Status: Chronic (6) Fistula Status: Chronic (7) GERD (gastroesophageal reflux disease) Status: Chronic (8) HTN (hypertension) Status: Chronic (9) Kidney transplant failure Status: Chronic (10) Thrombocytopenia Status: Chronic Surgical Problems: (1) Kidney transplant status Permanent Comment: R 1984 and L 2012 Status: Chronic (2) Status post AV fistula LUE Permanent Comment: 10/29/16 Status: Chronic (3) Stented coronary artery Permanent Comment: stents x 2 in [place] in 2006 and 2010 Status: Chronic . Procedures: hemodialysis cardiac monitoring IV meds CT abdomen + pelvis . Consultations: Nephrology . Medication Reconciliation New Medications: Clonidine HCl (Clonidine HCl) 0.2 Mg Tab 0.2 MG PO BID, #60 TAB 5 Refills New dose 10/17/17. Continued Medications: Alprazolam (Xanax) 0.5 Mg Tab 0.5 MG PO UD PRN for DIALYSIS Amitriptyline HCl (Amitriptyline HCl) 25 Mg Tab 25 MG PO HS Aspirin (Aspir-81) 81 Mg Tab 81 MG PO DAILY, TAB Bupropion Hcl (Smoking [place]eterre (Bupropion Hcl Sr) 150 Mg Tab 1 TAB PO BID for 30 Days, #60 TAB Calcium Carbonate (Antacid) (Tums) 500 Mg Chw 500 MG PO PRN for Heartburn, TAB Carvedilol (Coreg) 25 Mg Tab 25 MG PO BIDM Cholecalciferol (Vitamin D3) 1,000 Inter.unit Tab 3000 PO DAILY Cinecalcet (Sensipar) 60 Mg Tab 60 MG PO evening, TAB Gabapentin (Neurontin) 100 Mg Cap 100 MG PO TID Metoclopramide (Reglan) 10 Mg Tab 10 MG PO TID 30 minutes before meals Pantoprazole (Protonix) 40 Mg Tab 40 MG PO BID Sertraline (Zoloft) 50 Mg Tab 50 MG PO DAILY Sevelamer Carbonate (Renvela) 800 Mg Tab 3200 MG PO TIDM FOUR 800 MG TABLETS TID WITH MEALS, PER SURESCRIPTS Trazodone Hcl (Trazodone) 50 Mg Tab 50 MG PO HS Discontinued Medications: Clonidine Hcl (Catapres) 0.2 Mg Tab 0.4 MG PO TID TWO 0.2 MG TABLETS Hydralazine Hcl (Apresoline) 50 Mg Tab 50 MG PO TID Labetalol Hcl (Labetalol Hcl) 100 Mg Tab 100 MG PO BID Lisinopril (Lisinopril) 20 Mg Tab 20 MG PO DAILY, TAB Admission Information HPI (per Admitting provider): Pt is 37 y/o M with PMH ESRD on HD, HTN, anxiety, depression, GERD, gastroparesis presented to ER with c/o N/V, abdominal pain started yesterday. Pt c/o left sided abdominal discomfort described as cramping/squeezing sensation. Reports nausea and vomited approx 12 times. Denies diarrhea. Reports last BM yesterday which he reports as normal. Hx admission 09/17/17-09/18/17 for nausea, vomiting and pt reports was feeling well since until yesterday. Has HD on MWF. Reports had HD yesterday. Does not make much urine. Did not take any of his medications yet today secondary to nausea and vomiting. Denies ETOH use. Feeling a little chilled. Denies fever, diaphoresis, hematemesis, melena, hematochezia, ELAM, dizziness, syncope, vision changes, neck pain, CP, SOB, orthopnea, palpitations, cough, sore throat, choking, otalgia, rhinorrhea, paresthesias, weakness, extremity edema, rashes. . Physical Exam (per Admitting): General Appearance: + pertinent finding (chronic ill appearing, in no apparent distress) Head: normocephalic, atraumatic Eyes: normal inspection, PERRL, EOMI ENT: hearing grossly normal, pharynx normal, + pertinent finding (slightly dry mucous membranes) Neck: supple, no JVD, trachea midline Respiratory/Chest: lungs clear, normal breath sounds, no respiratory distress Cardiovascular: no murmur, + tachycardia Abdomen/GI: normal bowel sounds, soft, + pertinent finding (mild tenderness to palpation epigastric, RUQ, RLL without guarding or rebound) Back: no CVA tenderness Extremities/Musculoskelatal: no calf tenderness, normal capillary refill, no pedal edema, normal range of motion, non-tender Neurologic/Psych: alert, normal mood/affect, oriented x 3 Skin: warm/dry Hospital Course CKD V / HYPERKALEMIA Serum potassium date of admission was 6.7. Nephrology consulted for hemodialysis management Potassium day of discharge 4.4. Continue usual outpatient dialysis routine. ABDOMINAL PAIN Experienced severe epigastric pain with nausea and vomiting. No apparent obstruction per abdominal films. CT demonstrated nonspecific dilatation of proximal jejunum with air-fluid levels. No evidence of obstruction, free air, diverticulitis, appendicitis. History of pancreatitis. Serum lipase normal x 2. LFTs were normal except for minimally elevated alkaline phosphatase of 132. Received analgesics and anti-emetics as needed. Diet advanced and tolerated. CORONARY ARTERY DISEASE No anginal symptoms. Continue aspirin, beta parul. HYPERTENSION Labile hypertension. Outpatient meds prior to admission = carvedilol, labetalol, hydralazine, clonidine, and apparently lisinopril although not on current clinic medication list. Initial blood pressure in the ED was 171/121. Patient was having abdominal pain at that time and blood pressure improved with intravenous fentanyl. Patient experienced subsequent hypotension, especially after receiving analgesics and/or antiemetics. Blood pressures were monitored and medications titrated. Prescription history reviewed with patient's outpatient pharmacist. Patient often does not get refills on schedule, raising concerns about compliance as an outpatient. Systolic blood pressures were running 120-130 on the day of discharge. Currently prescribed carvedilol and labetalol; can simplify regimen by discontinuing labetalol. Carvedilol 25 mg twice daily continued. Clonidine dose reduced to 0.2 mg twice daily. Hydralazine and lisinopril discontinued. Follow and titrate therapy. SYMPTOM MANAGEMENT Patient reported severe abdominal pain and nausea at time of admission. CT demonstrated distended jejunum with air-fluid levels, but no other acute findings. At times, he was quite insistent that he receives analgesics, antiemetics, and benzodiazepines. He sometimes refused to receive or continue dialysis unless he received narcotic analgesics. He sometimes requested intravenous prochlorperazine when he objectively did not appear to be having any obvious nausea. One must be careful making assumptions or false accusations, but his symptoms and behavioral pattern suggested possibility of narcotic withdrawal. [place] quer[place]; no recent narcotic prescriptions. Patient becomes upset and offended when asked about analgesic use as outpatient. Nevertheless, must consider possibility of illicit narcotic use as an outpatient with subsequent withdrawal when hospitalized. Tried our best to manage symptoms appropriately as necessary with caution to avoid overmedication. VTE PROPHYLAXIS Moderate risk for VTE. SQ heparin. Ambulate. DISPOSITION Discharged to home. Internal Medicine follow-up with Dr. Fanny Chen. Nephrology follow-up with Dr. Restrepo. . Total time spent on discharge = 40 min. This includes examination of the patient, discharge planning, medication reconciliation, and communication with other providers. . Discharge Instructions Date of Service Oct 17, 2017. Admission Reason for Admission: abdominal pain, high potassium level . Discharge Discharge Diagnosis / Problem: abdominal pain, high potassium level Discharge Goals Goal(s): Decrease discomfort, Improve disease control Activity Recommendations Activity Limitations: resume your previous activity . Instructions / Follow-Up Instructions / Follow-Up APPOINTMENTS: DIALYSIS Continue treatments on Fri-Fri-Fri INTERNAL MEDICINE Dr. Fanny Chen. Office will contact you with appointment for next week. NEPHROLOGY Dr. Restrepo OTHER INSTRUCTIONS: Your blood pressures were too high, then too low. They were good on day of discharge. Continue carvedilol (Coreg) 25 mg twice a day. Reduce clonidine (Catapres) to 0.2 mg twice a day. Stop labetalol. Stop lisinopril. Stop hydralazine. (Don't throw any medications away because they may need to be restarted.) Seek medical attention if you have: * temperature above 101 * chest pain or trouble breathing * abdominal pain, nausea, vomiting * diarrhea, dark stools or bloody stools * any unanswered questions or concerns Call 911 if symptoms are severe. Call if you have any questions or problems. You can reach a [facility] hospitalist on duty at [facility] 24 hours a day by calling [phone]. Please take good care of yourself. Shayne Saavedra . Current Hospital Diet Patient's current hospital diet: Renal Diet Discharge Diet Recommended Diet: Renal Diet Pending Studies Studies pending at discharge: no Medical Emergencies . Who to Call and When: Medical Emergencies: If at any time you feel your situation is an emergency, please call 911 immediately. . Non-Emergent Contact Non-Emergency issues call your: Primary Care Provider, Hospital Doctor, [facility] . . "Provider Documentation" section prepared by Shayne Saavedra. . [place] Drug Monitoring Program Search Results: patient reviewed within database, no issues identified (no recent narcotic Rx's) .
== END 2017-10-17 19:45 | disposition home or self-care (01) | DRG 640 ==
LOC: EDBD 10:01 → C.EDC 10:02 → C.2T 14:27 → ENRESERV 15:19
PROVIDERS: ADMIT Internal Medicine; ATTEND Hospitalist
DX: E87.5 Hyperkalemia (principal); N18.6 End stage renal disease; I12.0 Hypertensive chronic kidney disease with stage 5 chronic kidney disease or end stage renal disease; Z94.0 Kidney transplant status; R10.84 Generalized abdominal pain; K59.8 Other specified functional intestinal disorders; E87.1 Hypo-osmolality and hyponatremia; K31.84 Gastroparesis; D63.8 Anemia in other chronic diseases classified elsewhere; I25.10 Atherosclerotic heart disease of native coronary artery without angina pectoris; F32.9 Major depressive disorder, single episode, unspecified; K21.9 Gastro-esophageal reflux disease without esophagitis; F41.9 Anxiety disorder, unspecified; G89.29 Other chronic pain; Z79.82 Long term (current) use of aspirin; Z79.899 Other long term (current) drug therapy; Z87.891 Personal history of nicotine dependence; Z88.8 Allergy status to other drugs, medicaments and biological substances; Z99.2 Dependence on renal dialysis; Z95.5 Presence of coronary angioplasty implant and graft

== ENCOUNTER 2019-01-18 12:26 | Inpatient (IN) ==
--- OUTSIDE RECORDS SUMMARY | 2019-01-18 12:29 | External Medical Summary | Continuity of Care Document ---
:1980 Author Name Idalia Reid Address Unavailable Unavailable , Care Team Providers Name Role Phone Case Hosea VALDEZ Unavailable [email or web address] Unavailable Unavailable Unavailable Unavailable Unavailable Problems Chronic kidney disease (585.9) (N18.9) Papilledema (377.00) (H47.10) Hypertension (401.9) (I10) Depression (311) (F32.9) Thrombocytopenia (287.5) (D69.6) GERD (gastroesophageal reflux disease) (530.81) (K21.9) Anxiety (300.00) (F41.9) CAD (coronary artery disease) (414.00) (I25.10) ESRD on dialysis (585.6) (N18.6) Allergies and Adverse Reactions minoxidil (Allergy) PredniSONE ([place]) TABS (Allergy) terazosin (Allergy) Medications ceFAZolin Sodium 1 GM Injection Solution Reconstituted; 2 GM DAILY FRI, FRI, FRIDAY FOR 9 DAYS TO BE ADMINISTERED WITH HEMODIALYSIS X 3 WEEKS Refills: 0 oxyCODONE-Acetaminophen 7.5-325 MG Oral Tablet; 1TAB PO Q6H NEEDED Refills: 0 ALPRAZolam 0.5 MG Oral Tablet; PO DIRECTED BEFORE DIALYSI S Refills: 0 Amitriptyline HCl - 25 MG Oral Tablet; PO QHS Refills: 0 amLODIPine Besylate 10 MG Oral Tablet; po daily Refills: 0 Aspirin 81 MG TABS; TAKE 1 TABLET DAILY. Refills: 0 Tums CHEW; TAKE DIRECTED. Refills: 0 Carvedilol 25 MG Oral Tablet; take 1 tablet by mouth twice a day Refills: 0 Vitamin D3 1000 UNIT Oral Capsule; 300O UNITS DAILY Refills: 0 Sensipar 30 MG Oral Tablet; TAKE 1 TABLET DAILY WITH FOOD. Refills: 0 cloNIDine HCl - 0.2 MG Oral Tablet; TAKE 0.4 MG (TWO T ABS) PO THREE TIMES DAILY Refills: 0 CloNIDine HCl 0.3 MG/24HR PTWK; APPLY 1 PATCH WEEKLY DIRE CTED. Refills: 0 Gabapentin 100 MG Oral Capsule; TAKE 1 CAPSULE 3 TIMES DAILY . Quantity: 270 Refills: 3 hydrALAZINE HCl - 50 MG Oral Tablet; TAKE 1 TABLET 3 times d aily Quantity: 90 Refills: 11 Labetalol HCl - 200 MG Oral Tablet; TAKE 1 TABLET TWICE OTTO Y. Refills: 0 Metoclopramide HCl - 10 MG Oral Tablet; PO 3 TIMES DAILY BEF ORE MEALS Refills: 0 Pantoprazole Sodium 40 MG Oral Tablet Delayed Release; PO BI D Refills: 0 Sertraline HCl - 50 MG Oral Tablet; TAKE 1 TABLET DAILY. Refills: 0 Renagel 800 MG Oral Tablet; 3200MG PO TID Refills: 0 traZODone HCl - 50 MG Oral Tablet; TAKE 1 TABLET DAILY. Refills: 0 Procedures History of kidney transplantation Status : Completed Immunizations Immunizations not documented Plan of Treatment Planned Encounters Appointment; Naomi Kelly PA-C Start: 11-Mar-2019 10:00 R equest Planned Observations Planned Goals not documented Results No Known Results Results not documented Encounters Appointment; Naomi Kelly PA-C 20-Oct-2018 14:00 Encounter Diagnosis: Problem not documented Appointment; Naomi Kelly PA-C 11-Mar-2019 10:00 Encounter Diagnosis: Problem not documented
[2019-01-18] MEDS ORDERED: MoRPHine SULFATE 4 MG/ML 1 ML CARP\\VIAL IV STA ×2 (12:35→17:24)
[2019-01-18] MEDS ORDERED: ONDANSETRON INJ 2 MG/ML 2 ML VIAL IV STA ×2 (12:35→17:24)
[2019-01-18 12:51] LABS: Basophils # (auto) 0.01 K/uL (0-0.2); Basophils % (auto) 0.2 %; Eosinophils # (auto) 0.13 K/uL (0-0.5); Eosinophils % (auto) 2.2 %; Hematocrit (blood only) 35.9 % (42-52); Hemoglobin 11.9 g/dL (14.0-18.0); Immature Granulocytes # (auto) 0.01 K/uL (0.00-0.02); Immature Granulocytes % (auto) 0.2 %; Lymphocytes # (auto) 1.06 K/uL (1.2-3.4); Lymphocytes % (auto) 18.1 %; Mean Corpuscular Hgb Conc 33.1 g/dL (32-36); Mean Corpuscular Volume 91.1 fL (80-100); Monocytes # (auto) 0.45 K/uL (0.11-0.59); Monocytes % (auto) 7.7 %; Neutrophils % (auto) 71.6 %; Platelet Count 132 K/uL (130-400); RDW Standard Deviation 50.2 fL (36.4-46.3); Red Blood Count 3.94 M/uL (4.7-6.1); White Blood Count 5.86 K/uL (4.8-10.8)
[2019-01-18 13:25] LABS: Albumin Globulin Ratio 0.7 (0.9-2); Albumin Level 3.6 gm/dl (3.4-5.0); BUN Creatinine Ratio 6.1 (10-20); Bilirubin,Total 0.4 mg/dl (0.2-1); Calcium 9.2 mg/dl (8.5-10.1); Creatinine Clr Calc Pharmacy 9.1 ml/min; Est GFR (Non-African American) 6.9; Globulin 5.4 gm/dl (2.5-4.0); Potassium 4.9 mmol/L (3.5-5.1)
[2019-01-18] MEDS ORDERED: IOVERSOL 100ml IV PRN (13:50)
--- NOTE | 2019-01-18 14:16 | CT Scan Report ---
CT abd pelvis IV con only CT DOSE: 405.40 mGycm HISTORY: Pain severe abd pain TECHNIQUE: Multiaxial CT images of the abdomen and pelvis were performed following the use of intrave nous contrast. A dose lowering technique was utilized adhering to the principles of ALARA. COMPARISON STUDY: 11/06/2018 FINDINGS: Lung bases remain clear. Postoperative changes consistent with a left pelvic renal transpla nt as well postoperative changes of the right inferior pericolic gutter are again noted. Liver spleen and pancreas appear unremarkable. Kidneys are atrophied. Gallbladder slightly distended with a suggestion of a trace amount of pericholecystic fluid. Bowel pattern suggests a mild nonobstructive ileus. The appendix is normal. Scattered descending and sigmoid colonic diverticuli with no evidence for acute diverticulitis. Slight degree of thickening of the wall of the descending and sigmoid colonic regions suggesting chronic diverticular change. IMPRESSION: 1. Possible slight pericholecystic edematous change of the gallbladder. 2. Right upper quadrant ultrasound is recommended as follow-up. 3. Mild nonobstructive generalized ileus. 4. Mild chronic diverticulosis of the descending and sigmoid colonic regions. 5. Renal atrophy and stable postoperative changes as noted. The above report was generated using voice recognition software. It may contain grammatical, syntax or spelling errors. Electronically signed by: Marvin De León M.D. 01/18/2019 2:15 PM
--- NOTE | 2019-01-18 16:55 | Ultrasound Report ---
US gallbladder CLINICAL HISTORY: ruq abd pain COMPARISON STUDY: CT scan dated 01/18/2019 FINDINGS: The pancreas appears sonographically normal. No focal hepatic masses are visualized. The ga llbladder appears sonographically normal. There is no ductal dilatation. The common bile duct measure s 4 mm. The right kidney is atrophic and poorly visualized. IMPRESSION: 1. Ultrasonographically normal liver, spleen and pancreas. No ductal dilatation Electronically signed by: Luis Daniel Perkins M.D. 01/18/2019 4:53 PM
[2019-01-18] MEDS ORDERED: HEPARIN SOD (PORCINE) 1000 UNIT/ML 10 ML VIAL IV ONE (18:09)
[2019-01-18] MEDS ORDERED: SODIUM CHLORIDE 0.9% 1000ML 1,000 ML IV PRN (18:09)
--- NOTE | 2019-01-18 19:12 | Emergency Department Note ---
Entered by Mirlande Gonzalez acting as a scribe for Haris Kennedy DO History of Present Illness General Chief complaint: Illness Time Seen by Provider: 01/18/19 12:27 Source: patient History of Present Illness Onset (ago): day(s) (last night) Location: abdomen Severity: similar to prior episodes (gastroparesis) Pain Consistency: + other (episode) Maximum Pain Intensity: 8 Quality: + other (illness) Associated symptoms: + denies other symptoms (rhinorrhea, hematemesis), + nausea/vomiting and + other (abdominal pain, back pain, diarrhea); no cough The patient is a 38 year old male who presents to the ED with complaints of an episode of an illness starting last night. The patient states that he has a history of Gastroparesis. He states that he thinks he is having a flare up and last had one about 5 months ago. He reports that yesterday he was woken up from sleep by nausea. He states that today 30 minutes into dialysis he started having abdominal pain that radiated to his back. He reports that he then had 3 episodes of vomiting and it looked like his food wasnt digested much. The patient notes that he has a history of pancreatitis, but hasnt had a flare in a long time and doesnt think it feels the same. The patient complaints of having diarrhea this morning. The patient denies cough, rhinorrhea, hematemesis, missing any dialysis, and a history of an appendectomy or cholecystectomy. Home Medications Home Medications Medication Instructions Recorded Confirmed Type Veltassa 8.4 g PO DAILY 06/23/18 01/18/19 History alprazolam 0.5 mg PO BID 06/23/18 01/18/19 History amitriptyline 25 mg PO HS 06/23/18 01/18/19 History clonidine HCl 0.2 mg PO BID 06/23/18 01/18/19 History gabapentin 100 mg PO HS 06/23/18 01/18/19 History metoclopramide HCl 10 mg PO AC 06/23/18 01/18/19 History pantoprazole 40 mg PO BID 06/23/18 01/18/19 History sertraline 150 mg PO DAILY 06/23/18 01/18/19 History carvedilol 25 mg PO BIDM 11/06/18 01/18/19 History trazodone 100 mg PO HS 11/06/18 01/18/19 History cholecalciferol (vitamin D3) 3,000 unit PO DAILY 01/18/19 01/18/19 History [Vitamin D3] cinacalcet 60 mg PO HS 01/18/19 01/18/19 History ferric citrate [Auryxia] 0 mg PO 3XWK 01/18/19 01/18/19 History Allergies Allergy/AdvReac Type Severity Reaction Status Date / Time minoxidil AdvReac Intermediate priapism Verified 01/18/19 14:22 prednisone AdvReac Intermediate SEVERE GI Verified 01/18/19 14:22 UPSET, CONSTIPATION terazosin AdvReac Intermediate priapism Verified 01/18/19 14:22 Past Med/Surg History Medical History Ulcerative colitis Insomnia (Chronic) Kidney transplant failure (Chronic) Dialysis patient (Chronic) HTN (hypertension) (Chronic) Depression (Chronic) Thrombocytopenia (Chronic) GERD (gastroesophageal reflux disease) (Chronic) Anxiety (Chronic) CAD (coronary artery disease) (Chronic) "s/p stent placement" ESRD (end stage renal disease) on dialysis (Chronic) Gastroparesis Pancreatitis Anemia Tobacco abuse, in remission Surgical History Stented coronary artery (Chronic) "stents x 2 in [place] in 2006 and 2010" Fistula (Chronic) Kidney transplant status (Chronic) "R 1984 and L 2012" Family History Father Diabetes Hypertension Kidney disease Mother Hypertension Kidney disease Social History Preferred Language: [place] Communication Ability: Effective Beliefs That Will Affect Care: Sikhism Sikhism Beliefs: Zoroastrianism marital status: Current Living Situation: Other Current Living Situation Comment: lives with friend current occupational status: unemployed and disabled Feels Safe at Home: Yes Smoking Status: Former smoker Hx Alcohol Use: No Hx Substance Use: No Review of Systems See HPI for pertinent positives & negatives. and A total of 10 systems reviewed and were otherwise negative Physical Exam Vital Signs Vital Signs - 24 hr 01/18/19 12:33 01/18/19 12:35 01/18/19 12:38 Temperature 36.5 C Temperature Source Oral Sepsis Recent Fever Within 48 Hours No Sepsis New/Unexplained Change in Mental Status No Sepsis Action Taken by Nursing No Action Required Pulse Rate 64 74 64 Pulse Rate [Bilateral Apical] Pulse Rate from SpO2 Sensor 64 63 Pulse Rhythm [Bilateral Apical] Pulse Strength [Bilateral Apical] Respiratory Rate 18 30 H 17 Respiratory Effort / Characteristics Respiratory Depth Respiratory Pattern Blood Pressure 131/103 H 131/103 H Blood Pressure [Right Arm] Blood Pressure Mean 112 112 Blood Pressure Mean [Right Arm] Blood Pressure Position [Right Arm] Pulse Oximetry 97 100 98 Oxygen Delivery Method Room Air Room Air Room Air 01/18/19 12:40 01/18/19 12:50 01/18/19 13:00 Temperature Temperature Source Sepsis Recent Fever Within 48 Hours Sepsis New/Unexplained Change in Mental Status Sepsis Action Taken by Nursing Pulse Rate 63 62 64 Pulse Rate [Bilateral Apical] Pulse Rate from SpO2 Sensor 63 61 64 Pulse Rhythm [Bilateral Apical] Pulse Strength [Bilateral Apical] Respiratory Rate 15 9 L 14 Respiratory Effort / Characteristics Respiratory Depth Respiratory Pattern Blood Pressure 117/88 Blood Pressure [Right Arm] Blood Pressure Mean 97 Blood Pressure Mean [Right Arm] Blood Pressure Position [Right Arm] Pulse Oximetry 99 99 99 Oxygen Delivery Method Room Air Room Air Room Air 01/18/19 13:01 01/18/19 13:10 01/18/19 13:20 Temperature Temperature Source Sepsis Recent Fever Within 48 Hours Sepsis New/Unexplained Change in Mental Status Sepsis Action Taken by Nursing Pulse Rate 67 68 69 Pulse Rate [Bilateral Apical] Pulse Rate from SpO2 Sensor 66 68 69 Pulse Rhythm [Bilateral Apical] Pulse Strength [Bilateral Apical] Respiratory Rate 13 13 12 Respiratory Effort / Characteristics Respiratory Depth Respiratory Pattern Blood Pressure Blood Pressure [Right Arm] Blood Pressure Mean Blood Pressure Mean [Right Arm] Blood Pressure Position [Right Arm] Pulse Oximetry 95 98 98 Oxygen Delivery Method Room Air Room Air Room Air 01/18/19 15:21 01/18/19 16:15 01/18/19 18:30 Temperature Temperature Source Sepsis Recent Fever Within 48 Hours Sepsis New/Unexplained Change in Mental Status Sepsis Action Taken by Nursing Pulse Rate Pulse Rate [Bilateral Apical] 70 69 68 Pulse Rate from SpO2 Sensor Pulse Rhythm [Bilateral Apical] Regular Regular Regular Pulse Strength [Bilateral Apical] Normal Normal Normal Respiratory Rate 16 16 16 Respiratory Effort / Characteristics Non-Labored Spontaneous Non-Labored Spontaneous Non-Labored Spontaneous Respiratory Depth Normal Normal Normal Respiratory Pattern Regular Regular Regular Blood Pressure Blood Pressure [Right Arm] 141/105 H 142/94 H 143/110 H Blood Pressure Mean Blood Pressure Mean [Right Arm] 117 110 121 Blood Pressure Position [Right Arm] Lying Lying Lying Pulse Oximetry 96 91 94 Oxygen Delivery Method Room Air Room Air Room Air GENERAL: laying in bed, disheveled, no acute distress, nontoxic EYE EXAM: normal conjunctiva, PERRL and EOM's grossly intact OROPHARYNX: no exudate, no erythema, lips, buccal mucosa, and tongue normal and mucous membranes are moist NECK: supple, no nuchal rigidity, no adenopathy, non-tender LUNGS: Clear to auscultation. Normal chest wall mechanics HEART: no murmurs, S1 normal and S2 normal ABDOMEN: abdomen soft, diffusely tender, normo-active bowel sounds, no masses, no rebound or guarding. BACK: Back is symmetrical on inspection and there is no deformity, no midline tenderness, no CVA tenderness. SKIN: no rashes and no bruising UPPER EXTREMITIES: left distal humerus has a fistula with positive frill/bruit. Otherwise, upper extremities are grossly normal. LOWER EXTREMITIES: No pitting edema. NEURO EXAM: Normal sensorium, cranial nerves II-XII grossly intact, normal speech, no gross weakness of arms, no gross weakness of legs. Course ED COURSE: Vital signs were reviewed and showed hypertension. The patients medical record was reviewed The above diagnostic studies were performed and reviewed. ED treatments and interventions as stated above. 1230: The patient was evaluated in room C2B. A complete history and physical examination was performed. 1615: I reevaluated the patient and he is doing well. 1803: I reevaluated the patient and he is feeling better. 1804: I discussed the patient's case with Dr. FlemingNephtramaine. She recommends the patient stay for dialysis. 1810: Upon reevaluation, the patient is willing to stay. I discussed my findings with the patient and ge understands and agrees with the treatment plan. Based on the patients age, coexisting illnesses, exam and lab findings the decision to treat as an inpatient was made. The patient remained stable while under my care. The patient will be evaluated for further management. 1846: I discussed the patient's case with BRAYDON Faith- [facility] Hospitalist. She will evaluate the patient for further management. Consultations Consultation #1: I discussed the patient's case with Dr. Alejandro-Nephrology. She recommends the patient stay for dialysis. Time: 18:04 Consultation #2: [facility] will [facility] the patient for further management. Time: 18:46 Administered Medications Ioversol (Optiray 320 100ml) 94 ml IV ONCE PRN PRN Reason: Interaction Checking Stop: 01/22/19 13:49 Last Admin: 01/18/19 13:51 Dose: 94 ml Documented by: [id number] Discontinued Medications Morphine Sulfate (Morphine Sulfate) 4 mg IV NOW STA Stop: 01/18/19 12:36 Last Admin: 01/18/19 12:47 Dose: 4 mg Documented by: [id number] Morphine Sulfate (Morphine Sulfate) 4 mg IV NOW STA Stop: 01/18/19 17:25 Last Admin: 01/18/19 18:22 Dose: 4 mg Documented by: [id number] Ondansetron HCl (Zofran) 4 mg IV NOW STA Stop: 01/18/19 12:36 Last Admin: 01/18/19 12:47 Dose: 4 mg Documented by: [id number] Ondansetron HCl (Zofran) 4 mg IV NOW STA Stop: 01/18/19 17:25 Last Admin: 01/18/19 18:22 Dose: 4 mg Documented by: [id number] Medical Decision Making Differential Diagnosis Differential diagnoses includes but is not limited to gastritis, peptic ulcer disease, GERD, gallbladder disease, pancreatitis, small bowel obstruction, acute coronary syndrome, pericarditis, ischemic bowel, irritable bowel disease, irritable bowel syndrome, appendicitis, diverticulitis, malignancy, hernia, urinary tract infection, torsion, perforation, trauma, infectious. Medical Records Attestation: I reviewed the patient's medical records. Home Medications Current Medication List: was personally reviewed by me Laboratory Data Attestation: I reviewed the patient's lab results. Result diagrams: 01/18/19 12:12 01/18/19 12:12 Lab Results 01/18/19 01/18/19 Range/Units 12:12 12:12 WBC 5.86 (4.8-10.8) K/uL RBC 3.94 L (4.7-6.1) M/uL Hgb 11.9 L (14.0-18.0) g/dL Hct 35.9 L (42-52) % MCV 91.1 (80-100) fL MCH 30.2 (25-34) pg MCHC 33.1 (32-36) g/dL RDW Std Deviation 50.2 H (36.4-46.3) fL RDW Coeff of Junito 15.0 H (11.5-14.5) % Plt Count 132 (130-400) K/uL MPV 11.0 H (7.4-10.4) fL Immature Gran % (Auto) 0.2 % Neut % (Auto) 71.6 % Lymph % (Auto) 18.1 % [place] % (Auto) 7.7 % Eos % (Auto) 2.2 % Baso % (Auto) 0.2 % Immature Gran # (Auto) 0.01 (0.00-0.02) K/uL Neut # (Auto) 4.20 (1.4-6.5) K/uL Lymph # (Auto) 1.06 L (1.2-3.4) K/uL [place] # (Auto) 0.45 (0.11-0.59) K/uL Eos # (Auto) 0.13 (0-0.5) K/uL Baso # (Auto) 0.01 (0-0.2) K/uL Sodium 132 L (136-145) mmol/L Potassium 4.9 (3.5-5.1) mmol/L Chloride 96 L (98-107) mmol/L Carbon Dioxide 29 (21-32) mmol/L Anion Gap 7.0 (3-11) BUN 53 H (7-18) mg/dl Creatinine 8.61 H* (0.6-1.4) mg/dl Est Cr Clr Drug Dosing 9.1 ml/min Est GFR ( Amer) 8.0 Est GFR (Non-Af Amer) 6.9 BUN/Creatinine Ratio 6.1 L (10-20) Glucose 90 (70-99) mg/dl Calcium 9.2 (8.5-10.1) mg/dl Total Bilirubin 0.4 (0.2-1) mg/dl AST 17 (15-37) U/L ALT 19 (12-78) U/L Alkaline Phosphatase 103 (45-117) U/L Total Protein 9.0 H (6.4-8.2) gm/dl Albumin 3.6 (3.4-5.0) gm/dl Globulin 5.4 H (2.5-4.0) gm/dl Albumin/Globulin Ratio 0.7 L (0.9-2) Lipase 426 H (73-393) U/L Imaging Data Radiologist's Impression: Radiology results as stated below per my review and the radiologist's interpretation: US gallbladder CLINICAL HISTORY: ruq abd pain COMPARISON STUDY: CT scan dated 01/18/2019 FINDINGS: The pancreas appears sonographically normal. No focal hepatic masses are visualized. The gallbladder appears sonographically normal. There is no ductal dilatation. The common bile duct measures 4 mm. The right kidney is atrophic and poorly visualized. IMPRESSION: 1. Ultrasonographically normal liver, spleen and pancreas. No ductal dilatation Electronically signed by: Luis Daniel Perkins M.D. 01/18/2019 4:[address] abd pelvis IV con only CT DOSE: 405.40 mGycm HISTORY: Pain severe abd pain TECHNIQUE: Multiaxial CT images of the abdomen and pelvis were performed following the use of intravenous contrast. A dose lowering technique was utilized adhering to the principles of ALARA. COMPARISON STUDY: 11/06/2018 FINDINGS: Lung bases remain clear. Postoperative changes consistent with a left pelvic renal transplant as well postoperative changes of the right inferior pericolic gutter are again noted. Liver spleen and pancreas appear unremarkable. Kidneys are atrophied. Gallbl adder slightly distended with a suggestion of a trace amount of pericholecystic fluid. Bowel pattern suggests a mild nonobstructive ileus. The appendix is normal. Scattered descending and sigmoid colonic diverticuli with no evidence for acute diverticulitis. Slight degree of thickening of the wall of the descending and sigmoid colonic regions suggesting chronic diverticular change. IMPRESSION: 1. Possible slight pericholecystic edematous change of the gallbladder. 2. Right upper quadrant ultrasound is recommended as follow-up. 3. Mild nonobstructive generalized ileus. 4. Mild chronic diverticulosis of the descending and sigmoid colonic regions. 5. Renal atrophy and stable postoperative changes as noted. The above report was generated using voice recognition software. It may contain grammatical, syntax or spelling errors. Electronically signed by: Marvin De León M.D. 01/18/2019 2:15 PM Blood Pressure Blood Pressure Findings: Elevated blood pressure Blood Pressure Disposition: further management by hospitalist JAUN Narrative Patient is a 38-year-old male who presents the ER receives dialysis Friday. He was at dialysis and received 30 minutes of treatment following which he started vomiting and having abdominal pain rating through to his back. Patient was transported here via EMS. Again medical command for IV morphine. Labs were obtained and showed no significant leukocytosis or anemia. BMP with a creatinine of 8.6. Potassium was 4.9. LFTs bilirubin were unremarkable. Lipase was slightly elevated at 426. CT abdomen pelvis shows questionable pericholecystic edema. Secondary to this ultrasound was performed and was unremarkable. Discussed with nephrology and due to his clinic only performing dialysis Friday recommended observation for p.o. hydration and dialysis. Patient was updated bedside and was agreeable. He was given multiple dose of IV narcotics and Zofran. He was admitted to the hospital for observation. Impression & Plan Ileus, Dialysis patient, Pancreatitis, Vomiting Discharge Plan Visit Data Chief Complaint: Illness Other Complaint: Back Injury/Pain ED Provider: Haris Kennedy Discharge Problem: Ileus, Dialysis patient, Pancreatitis, Vomiting Patient Disposition: Being Evaluated by Hospitalist Forms Stand Alone Forms: [facility] Prescriptions Prescriptions: No Action alprazolam 0.5 mg tablet 0.5 mg PO BID RF: 0 clonidine HCl 0.2 mg tablet 0.2 mg PO BID RF: 0 amitriptyline 25 mg tablet 25 mg PO HS RF: 0 pantoprazole 40 mg tablet,delayed release (DR/EC) 40 mg PO BID RF: 0 gabapentin 100 mg capsule 100 mg PO HS RF: 0 metoclopramide HCl 10 mg tablet 10 mg PO AC RF: 0 sertraline 100 mg tablet 150 mg PO DAILY RF: 0 Veltassa 8.4 gram Powder In Packet 8.4 g PO DAILY RF: 0 carvedilol 25 mg Tablet 25 mg PO BIDM RF: 0 trazodone 100 mg Tablet 100 mg PO HS RF: 0 Auryxia 210 mg iron tablet PO 3XWK RF: 0 cinacalcet 30 mg Tablet 60 mg PO HS RF: 0 cholecalciferol (vitamin D3) [Vitamin D3] 1,000 unit Tablet 3,000 unit PO DAILY RF: 0 Referrals Referrals: Fanny Chen MD [Primary Care Provider] - Discharge Problem: Pancreatitis Qualifiers: Chronicity: acute Pancreatitis type: unspecified pancreatitis type Acute pancreatitis complication: unspecified Qualified Code(s): K85.90 - Acute pancreatitis without necrosis or infection, unspecified Vomiting Qualifiers: Vomiting type: unspecified Vomiting Intractability: unspecified Nausea presence: unspecified Qualified Code(s): R11.10 - Vomiting, unspecified The scribe's documentation has been prepared under my direction and personally reviewed by me in its entirety. I confirm that the note above accurately refl ects all work, treatment, procedures, and medical decision making performed by me.
--- NOTE | 2019-01-18 20:30 | History & Physical Report ---
Date of Service January 18, 2019 Assessment & Plan (1) Abdominal pain: (2) Gastroparesis: (3) Ileus: -Admit to [facility] -Patient presenting from outpatient dialysis after sudden onset of abdominal pain and vomiting -Patient reports history of gastroparesis and flares presenting similar to this in the past -In the ED, work-up is essentially unremarkable; CT ABD/pelvis showing mild nonobstructive ileus -Lipase 426, LFTs WNL -Patient reports feeling markedly better after receiving IV morphine and IV Zofran in the ED -Will place on clear liquids, continue supportive care with PRN antiemetics -Continue home dose of Reglan -Patient reports one episode of diarrhea at home this morning, if persistent consider stool testing (4) ESRD (end stage renal disease) on dialysis: -Patient on dialysis Friday, Friday, Friday -Did not receive full treatment today -Dr. Brambila notified by ED and placing dialysis orders for this evening -Continue routine renal medications (5) HTN (hypertension): -BP mildly elevated, likely secondary to pain -Continue home doses of carvedilol and clonidine, making adjustments as needed (6) GERD (gastroesophageal reflux disease): -Continue PPI (7) Depression: (8) Anxiety: -Continue trazodone, amitriptyline, and sertraline (9) DVT prophylaxis: -SCDs, ambulate History of Present Illness Chief Complaint: Abdominal pain Primary Care Provider: Fanny Chen MD 38-year-old male who presents the ED with abdominal pain. Patient has history of ESRD on dialysis Friday, Friday, Friday. Patient reports that while at dialysis today he had a sudden onset of mid abdominal pain with radiation into the back. He also had associated vomiting. He denies hematemesis or coffee- ground emesis. Patient reports very similar episodes to when his gastroparesis is flaring up. Patient did not receive a full dialysis treatment today. He reports feeling improved after receiving medication in the ED. Patient reports he otherwise been feeling well recently. He reports one episode of diarrhea this morning. No bleeding per rectum or dark tarry stools. He denies chest pain shortness of breath. No lightheadedness, dizziness, diaphoresis, syncopal events. No fevers or chills. Patient is anuric. In the ED, work-up is essentially unremarkable however patient's ssis ssrs developer is recommending admission for patient to receive dialysis. Allergies Allergy/AdvReac Type Severity Reaction Status Date / Time minoxidil AdvReac Intermediate priapism Verified 01/18/19 14:22 prednisone AdvReac Intermediate SEVERE GI Verified 01/18/19 14:22 UPSET, CONSTIPATION terazosin AdvReac Intermediate priapism Verified 01/18/19 14:22 Home Medications Home Medications Medication Instructions Recorded Confirmed Type Veltassa 8.4 g PO DAILY 06/23/18 01/18/19 History alprazolam 0.5 mg PO MOWEFR 06/23/18 01/18/19 History amitriptyline 25 mg PO HS 06/23/18 01/18/19 History clonidine HCl 0.2 mg PO BID 06/23/18 01/18/19 History gabapentin 100 mg PO HS 06/23/18 01/18/19 History metoclopramide HCl 10 mg PO TIDM 06/23/18 01/18/19 History pantoprazole 40 mg PO BID 06/23/18 01/18/19 History sertraline 150 mg PO DAILY 06/23/18 01/18/19 History carvedilol 25 mg PO BIDM 11/06/18 01/18/19 History trazodone 100 mg PO HS 11/06/18 01/18/19 History cholecalciferol (vitamin D3) 3,000 unit PO DAILY 01/18/19 01/18/19 History [Vitamin D3] cinacalcet 60 mg PO HS 01/18/19 01/18/19 History ferric citrate [Auryxia] 3 tab PO TIDM 01/18/19 01/18/19 History Past Med/Surg History Medical History Gastroparesis (Chronic) Insomnia (Chronic) Kidney transplant failure (Chronic) Dialysis patient (Chronic) HTN (hypertension) (Chronic) Depression (Chronic) Thrombocytopenia (Chronic) GERD (gastroesophageal reflux disease) (Chronic) Anxiety (Chronic) CAD (coronary artery disease) (Chronic) "s/p stent placement" ESRD (end stage renal disease) on dialysis (Chronic) Surgical History Stented coronary artery (Chronic) "stents x 2 in [place] in 2006 and 2010" Fistula (Chronic) Kidney transplant status (Chronic) "R 1984 and L 2012" Family History Father Diabetes Hypertension Kidney disease Mother Hypertension Kidney disease Social History Preferred Language: Cymro Communication Ability: Effective Visual Stylist Required: No Beliefs That Will Affect Care: Jew Jew Beliefs: Islam marital status: Current Living Situation: Parent, Family and Other Current Living Situation Comment: with mom current occupational status: unemployed and disabled Other Information That Helps Us Care for You: No Feels Safe at Home: Yes Smoking Status: Former smoker Do You Dip or Chew Tobacco: No Smoking End Date: January 21, 2017 Hx Alcohol Use: No Hx Substance Use: No Review of Systems Review of Systems: ROS per HPI, all other systems reviewed and negative Physical Exam Constitutional: WD/WN, vitals as above Eyes: PERRL, conjunctivae normal, anicteric sclerae ENMT: external ear and nose normal, oropharynx normal Respiratory: normal respiratory effort, lungs clear to auscultation Cardiovascular: Rate/Rhythm: regular rate and regular rhythm Vessels: normal peripheral pulses Extremities: no edema Gastrointestinal (Abdomen): Inspection/Auscultation: normal bowel sounds; abdomen not distended Percussion/Palpation: + abdomen tender (Mid abdominal) and abdomen soft; no hepatosplenomegaly Musculoskeletal: no cyanosis or clubbing, extremities motor strength 5/5 Skin: no rashes, warm and dry Neurologic: PERRL, EOMI, accommodation nl, no face palsy, no dysarthria Psychiatric: A+Ox3, euthymic affect Results & Data Vital Signs (Past 12 Hours) Vital Signs Temp Pulse Pulse Resp BP BP Pulse Ox 01/18/19 20:12 69 12 140/111 H 93 01/18/19 18:30 68 16 143/110 H 94 01/18/19 16:15 69 16 142/94 H 91 01/18/19 15:21 70 16 141/105 H 96 01/18/19 13:20 69 12 98 01/18/19 13:10 68 13 98 01/18/19 13:01 67 13 95 01/18/19 13:00 64 14 117/88 99 01/18/19 12:50 62 9 L 99 01/18/19 12:40 63 15 99 07/01/19 12:38 64 17 98 01/18/19 12:35 36.5 C 74 30 H 131/103 H 100 01/18/19 12:33 64 18 131/103 H 97 Laboratory Results Short CBC 01/18/19 Range/Units 12:12 WBC 5.86 (4.8-10.8) K/uL Hgb 11.9 L (14.0-18.0) g/dL Hct 35.9 L (42-52) % Plt Count 132 (130-400) K/uL BMP 01/18/19 12:12 Sodium 132 L Potassium 4.9 Chloride 96 L Carbon Dioxide 29 BUN 53 H Creatinine 8.61 H* Glucose 90 Calcium 9.2 Liver Function 01/18/19 Range/Units 12:12 Total Bilirubin 0.4 (0.2-1) mg/dl AST 17 (15-37) U/L ALT 19 (12-78) U/L Alkaline Phosphatase 103 (45-117) U/L Albumin 3.6 (3.4-5.0) gm/dl Diagnostic Findings CT ABD/PELVIS IMPRESSION: 1. Possible slight pericholecystic edematous change of the gallbladder. 2. Right upper quadrant ultrasound is recommended as follow-up. 3. Mild nonobstructive generalized ileus. 4. Mild chronic diverticulosis of the descending and sigmoid colonic regions. 5. Renal atrophy and stable postoperative changes as noted. GALLBLADDER US IMPRESSION: 1. Ultrasonographically normal liver, spleen and pancreas. No ductal dilatation Code Status & VTE Plan Code Status Patient is a full code as per my discussion with him. VTE Prophylaxis Plan VTE Prophylaxis will be ordered: Yes Supervising Physician Co-Signing Physician Notes Care coordinated with Arely Langston. Agree with above note. Patient seen and examined. Please refer to her notes for full details. Vital signs reviewed. Physical exam: General exam: Alert and oriented. Not in acute distress. CVS: S1 and S2 heard, regular rate and rhythm, no murmurs. RS: Clear to auscultation, no wheezing or crackles. ABD: Soft, bowel sounds sluggish, nontender, no distention. MANAGER INSTALLATION: Nonfocal. EXT: No edema, no erythema. Labs: Reviewed. Assessment and plan: 38M presents with abdominal pain and n/v and found to have ileus. Abdominal pain n/v ileus hx of gastroparesis clears and advance as tolerated ESRD dialysis as per nephrology Other diagnosis and plan of care as per Arely Langston. Sami han MD.
[2019-01-18] MEDS ORDERED: ONDANSETRON INJ 2 MG/ML 2 ML VIAL IV PRN (20:56)
[2019-01-18] MEDS ORDERED: ACETAMINOPHEN 325 MG TAB PO PRN (20:56)
[2019-01-18] MEDS ORDERED: GABAPENTIN 100 MG CAP PO SCH (21:00)
[2019-01-18] MEDS ORDERED: TRAZODONE HCL 100 MG TAB PO SCH (21:00)
[2019-01-18] MEDS ORDERED: AMITRIPTYLINE HCL 25 MG TAB PO SCH (21:00)
[2019-01-18] MEDS: cloNIDine HCl 0.1 MG TAB PO SCH (22:03)
[2019-01-18] MEDS: PANTOprazole 40 MG TAB PO SCH (22:04)
[2019-01-18] MEDS: AURYXIA~ORDER AWAITING ACTION SCH (22:06)
[2019-01-19] MEDS: AURYXIA~ORDER AWAITING ACTION SCH ×2 (00:01→07:01)
[2019-01-19] MEDS: HYDROmorphone INJ 0.5 MG/0.5 ML SYR IV PRN ×2 (04:12→09:05)
[2019-01-19] MEDS ORDERED: CARVEDILOL 25 MG TAB PO SCH (08:00)
[2019-01-19 08:10] LABS: Hematocrit (blood only) 35.8 % (42-52); Hemoglobin 11.7 g/dL (14.0-18.0); Mean Corpuscular Hgb Conc 32.7 g/dL (32-36); Mean Corpuscular Volume 92.3 fL (80-100); Platelet Count 117 K/uL (130-400); RDW Standard Deviation 50.5 fL (36.4-46.3); Red Blood Count 3.88 M/uL (4.7-6.1); White Blood Count 6.19 K/uL (4.8-10.8)
[2019-01-19] MEDS ORDERED: HEPARIN SOD (PORCINE) 1000 UNIT/ML 10 ML VIAL IV SCH (08:30)
[2019-01-19] MEDS ORDERED: SODIUM CHLORIDE 0.9% 1000ML 1,000 ML IV PRN (08:30)
[2019-01-19 08:55] LABS: BUN Creatinine Ratio 5.7 (10-20); Calcium 9.8 mg/dl (8.5-10.1); Creatinine Clr Calc Pharmacy 8.6 ml/min; Est GFR (African American) 5.9; Est GFR (Non-African American) 5.1; Potassium 5.1 mmol/L (3.5-5.1)
[2019-01-19] MEDS ORDERED: CHOLECALCIFEROL 1,000 UNITS TAB PO SCH (09:00)
[2019-01-19] MEDS ORDERED: SERTRALINE HCL 50 MG TABLET PO SCH (09:00)
--- NOTE | 2019-01-19 10:03 | Hospitalist Progress Note ---
Date of Service January 19, 2019 Assessment & Plan (1) Abdominal pain: (2) Gastroparesis: (3) Ileus: -Admit to [facility] -Patient presenting from outpatient dialysis after sudden onset of abdominal pain and vomiting -Patient reports history of gastroparesis and flares presenting similar to this in the past -CT ABD/pelvis showing mild nonobstructive ileus -Will place on clear liquids, continue supportive care with PRN antiemetics -Has been feeling a lot better since admission -Denies any more abdominal pain and/or nausea -Bowel has not moved -We will advance diet as tolerated -Likely to go home following hemodialysis this afternoon (4) ESRD (end stage renal disease) on dialysis: -Patient on dialysis Friday, Friday, Friday -Did not receive full treatment on the day of admission -He wanted to sign out AMA this morning as because dialysis was not done last night -Was seen by nephrology this morning -He will have dialysis starting around 10 for about 2 hours this more -He will be discharged following dialysis today (5) HTN (hypertension): -BP mildly elevated, likely secondary to pain -Continue home doses of carvedilol and clonidine, making adjustments as needed -Blood pressure remains upper side around 145/97 -We will continue his usual medications (6) GERD (gastroesophageal reflux disease): -Continue PPI -Denies any symptoms (7) Depression: (8) Anxiety: -Continue trazodone, amitriptyline, and sertraline (9) DVT prophylaxis: -SCDs, ambulate He wanted to sign out AMA He was persuaded to stay for dialysis today Agreeable for now and will be sent home following dialysis Subjective 01/19 Patient was seen and examined in medical telemetry unit He is a 38-year-old male with significant past medical history of ESRD on hemodialysis, hypertension, GERD and depression with anxiety was admitted with abdominal pain and nausea.he was noted to have possible Ileus on imaging studies He wanted to sign out AMA this morning He complains to have some chest tightness but no definite shortness of breath Abdominal pain and nausea are better Review of Systems Review of Systems: All systems reviewed and are unremarkable except as noted. Constitutional: + weakness Respiratory: + dyspnea (Minimal chest tightness and shortness of breath with exertion) Cardiovascular: no chest pain Gastrointestinal: + abdominal pain (Minimal abdominal discomfort) and + bloating; no nausea and no vomiting Physical Exam Physical Exam: Minimal distress at rest Constitutional: well developed, well nourished and + ill appearing; no acute distress Eyes: PERRL, conjunctivae normal, anicteric sclerae ENMT: external ear and nose normal, oropharynx normal Neck: trachea midline, no thyromegaly Respiratory: normal respiratory effort Auscultation: + diminished lung sounds and + crackles (Crackles at the bases) Cardiovascular: Rate/Rhythm: regular rate and regular rhythm Vessels: normal peripheral pulses Extremities: no edema Gastrointestinal (Abdomen): Inspection/Auscultation: normal bowel sounds; abdomen not distended Percussion/Palpation: + abdomen tender (Mid abdominal) and abdomen soft; no hepatosplenomegaly Musculoskeletal: no cyanosis or clubbing, extremities motor strength 5/5 No acute arthritis in any joint Skin: no rashes, warm and dry Neurologic: PERRL, EOMI, accommodation nl, no face palsy, no dysarthria Psychiatric: A+Ox3, euthymic affect Lymphatic: no cervical or axillary lymphadenopathy Results & Data Vital Signs (Past 12 Hours) Vital Signs Temp Pulse Pulse Resp BP Pulse Ox 01/19/19 08:00 36.6 C 81 18 145/97 H 94 01/19/19 04:11 36.6 C 69 16 145/95 H 93 01/18/19 23:42 36.5 C 70 18 138/95 91 01/18/19 22:02 75 164/102 H Laboratory Results Short CBC 01/18/19 01/19/19 Range/Units 12:12 07:47 WBC 5.86 6.19 (4.8-10.8) K/uL Hgb 11.9 L 11.7 L (14.0-18.0) g/dL Hct 35.9 L 35.8 L (42-52) % Plt Count 132 117 L (130-400) K/uL BMP 01/18/19 01/19/19 12:12 07:47 Sodium 132 L 133 L Potassium 4.9 5.1 Chloride 96 L 95 L Carbon Dioxide 29 26 BUN 53 H 64 H Creatinine 8.61 H* 11.10 H* D Glucose 90 89 Calcium 9.2 9.8 Liver Function 01/18/19 Range/Units 12:12 Total Bilirubin 0.4 (0.2-1) mg/dl AST 17 (15-37) U/L ALT 19 (12-78) U/L Alkaline Phosphatase 103 (45-117) U/L Albumin 3.6 (3.4-5.0) gm/dl Medications Administered Current Inpatient Medications Acetaminophen (Tylenol) 650 mg PO Q4H PRN PRN Reason: pain/fever Stop: 02/17/19 20:55 Amitriptyline HCl (Elavil) 25 mg PO HS [facility] Stop: 02/17/19 20:59 Last Admin: 01/18/19 22:04 Dose: 25 mg Documented by: Carvedilol (Coreg) 25 mg PO BIDM [facility] Stop: 02/18/19 07:59 Clonidine HCl (Catapres) 0.2 mg PO BID [facility] Stop: 02/17/19 20:59 Last Admin: 01/18/19 22:03 Dose: 0.2 mg Documented by: Gabapentin (Neurontin) 100 mg PO HS [facility] Stop: 02/17/19 20:59 Last Admin: 01/18/19 22:05 Dose: 100 mg Documented by: Heparin Sodium (Porcine) (Heparin Iv Bolus) 1,000 units IV 0830 [facility] Stop: 01/19/19 18:00 Heparin Sodium (Porcine) (Heparin Iv Bolus) 400 units IV Q1H [facility] Stop: 01/19/19 10:31 Hydromorphone HCl (Dilaudid) 0.5 mg IV Q3H PRN PRN Reason: Pain Stop: 02/01/19 23:56 Last Admin: 01/19/19 09:05 Dose: 0.5 mg Documented by: Sodium Chloride (Nss 1000ml) 1,000 mls @ 0 mls/hr IV .Q0M PRN PRN Reason: For Hemodialysis Use ONLY Stop: 01/19/19 14:29 Metoclopramide HCl (Reglan) 10 mg PO TIDM [facility] Stop: 02/18/19 07:59 Miscellaneous (Order Awaiting Action) 1 ea N/A QS [facility] Stop: 02/17/19 21:14 Last Admin: 01/19/19 07:01 Dose: Not Given Documented by: Miscellaneous (Order Awaiting Action) 1 ea N/A QS [facility] Stop: 02/17/19 21:14 Last Admin: 01/19/19 07:01 Dose: Not Given Documented by: Ondansetron HCl (Zofran) 4 mg IV Q6H PRN PRN Reason: Nausea Stop: 02/17/19 20:55 Pantoprazole Sodium (Protonix) 40 mg PO BID [facility] Stop: 02/17/19 20:59 Last Admin: 01/18/19 22:04 Dose: 40 mg Documented by: Arnol (Sahil) 8.4 gm PO DAILY@1200 [facility] Stop: 02/18/19 11:59 Sertraline HCl (Zoloft) 150 mg PO DAILY [facility] Stop: 02/18/19 08:59 Trazodone HCl (Desyrel) 100 mg PO HS [facility] Stop: 02/17/19 20:59 Last Admin: 01/18/19 22:04 Dose: 100 mg Documented by: Vitamin D (Vitamin D3) 3,000 units PO DAILY [facility] Stop: 02/18/19 08:59
[2019-01-19] MEDS ORDERED: HydrALAZINE HCL 20 MG/ML VIAL IV STA (11:22)
[2019-01-19] MEDS: HEPARIN SOD (PORCINE) 1000 UNIT/ML 10 ML VIAL IV SCH ×4 (11:25→13:11)
[2019-01-19] MEDS ORDERED: PATIROMER CALCIUM SORBITEX 8.4 GM PACK PO SCH (12:00)
[2019-01-19] MEDS: PANTOprazole 40 MG TAB PO SCH (13:09)
[2019-01-19] MEDS: METOCLOPRAMIDE HCL 10 MG TABLET PO SCH ×3 (13:10→13:12)
[2019-01-19] MEDS: cloNIDine HCl 0.1 MG TAB PO SCH (13:11)
--- NOTE | 2019-01-19 15:15 | Discharge Summary ---
Date of Service January 19, 2019 Admission HPI Per Admitting Provider 38-year-old male who presents the ED with abdominal pain. Patient has history of ESRD on dialysis Friday, Friday, Friday. Patient reports that while at dialysis today he had a sudden onset of mid abdominal pain with radiation into the back. He also had associated vomiting. He denies hematemesis or coffee- ground emesis. Patient reports very similar episodes to when his gastroparesis is flaring up. Patient did not receive a full dialysis treatment today. He reports feeling improved after receiving medication in the ED. Patient reports he otherwise been feeling well recently. He reports one episode of diarrhea this morning. No bleeding per rectum or dark tarry stools. He denies chest pain shortness of breath. No lightheadedness, dizziness, diaphoresis, syncopal events. No fevers or chills. Patient is anuric. In the ED, work-up is essentially unremarkable however patient's fresh work wrapper layer is recommending admission for patient to receive dialysis. Admission Exam Per Admitting Provider Constitutional: WD/WN, vitals as above Eyes: PERRL, conjunctivae normal, anicteric sclerae ENMT: external ear and nose normal, oropharynx normal Respiratory: normal respiratory effort, lungs clear to auscultation Cardiovascular: Rate/Rhythm: regular rate and regular rhythm Vessels: normal peripheral pulses Extremities: no edema Gastrointestinal (Abdomen): Inspection/Auscultation: normal bowel sounds; abdomen not distended Percussion/Palpation: + abdomen tender (Mid abdominal) and abdomen soft; no hepatosplenomegaly Musculoskeletal: no cyanosis or clubbing, extremities motor strength 5/5 Skin: no rashes, warm and dry Neurologic: PERRL, EOMI, accommodation nl, no face palsy, no dysarthria Psychiatric: A+Ox3, euthymic affect Principal Diagnosis End-stage renal disease on hemodialysis, abdominal pain secondary to ileus- improved, hypertension Discharge Exam Constitutional well developed, well nourished and + ill appearing; no acute distress Eyes PERRL, conjunctivae normal, anicteric sclerae ENMT external ear and nose normal, oropharynx normal Neck trachea midline, no thyromegaly Respiratory normal respiratory effort Auscultation: + diminished lung sounds and + crackles (Crackles at the bases) Cardiovascular Rate/Rhythm: regular rate and regular rhythm Vessels: normal peripheral pulses Extremities: no edema Gastrointestinal (Abdomen) Inspection/Auscultation: normal bowel sounds; abdomen not distended Percussion/Palpation: + abdomen tender (Mid abdominal) and abdomen soft; no hepatosplenomegaly Musculoskeletal no cyanosis or clubbing, extremities motor strength 5/5 Skin no rashes, warm and dry Neurologic PERRL, EOMI, accommodation nl, no face palsy, no dysarthria Psychiatric A+Ox3, euthymic affect Lymphatic no cervical or axillary lymphadenopathy Discharge Data Allergies Allergy/AdvReac Type Severity Reaction Status Date / Time minoxidil AdvReac Intermediate priapism Verified 01/18/19 14:22 prednisone AdvReac Intermediate SEVERE GI Verified 01/18/19 14:22 UPSET, CONSTIPATION terazosin AdvReac Intermediate priapism Verified 01/18/19 14:22 Consultations 01/18/19 18:56 ED Decision to Admit Stat 01/18/19 20:56 Consult Nephrology Routine Ordered Studies 01/18/19 12:35 CT abd pelvis IV con only Stat 01/18/19 15:36 US gallbladder Stat Hospital Course (1) Abdominal pain: (2) Gastroparesis: (3) Ileus: -Admit to [facility] -Patient presenting from outpatient dialysis after sudden onset of abdominal pain and vomiting -Patient reports history of gastroparesis and flares presenting similar to this in the past -CT ABD/pelvis showing mild nonobstructive ileus -Will place on clear liquids, continue supportive care with PRN antiemetics -Has been feeling a lot better since admission -Denies any more abdominal pain and/or nausea -Bowel has not moved -We will advance diet as tolerated -Likely to go home following hemodialysis this afternoon (4) ESRD (end stage renal disease) on dialysis: -Patient on dialysis Friday, Friday, Friday -Did not receive full treatment on the day of admission -He wanted to sign out AMA this morning as because dialysis was not done last night -Was seen by nephrology this morning -He will have dialysis starting around 10 for about 2 hours this more -He will be discharged following dialysis today (5) HTN (hypertension): -BP mildly elevated, likely secondary to pain -Continue home doses of carvedilol and clonidine, making adjustments as needed -Blood pressure remains upper side around 145/97 -We will continue his usual medications (6) GERD (gastroesophageal reflux disease): -Continue PPI -Denies any symptoms (7) Depression: (8) Anxiety: -Continue trazodone, amitriptyline, and sertraline (9) DVT prophylaxis: -SCDs, ambulate He wanted to sign out AMA He was persuaded to stay for dialysis today Agreeable for now and will be sent home following dialysis Total Time Total Time Spent Total Time Spent (In Minutes): 35 minutes Total Time Includes: Examination of the Patient, Discharge Planning, Medication Reconciliation and Communication With Other Providers Discharge Plan Discharge Items Patient Disposition: Home - Self-Care Reason For Visit: ABDOMINAL PAIN Discharge Diagnosis: End-stage renal disease on hemodialysis, abdominal pain secondary to ileus-improved, hypertension Condition: Fair Discharge Goals: Decrease discomfort, Improve function and Increase independence Activity: Resume your previous activity Non-emergency contact: Primary Care Provider Call non-emergency contact if: you have any medication questions Follow-up/Referrals: Fanny Chen MD [Primary Care Provider] - (Your doctor's office will call with appointment. Please keep hemodialysis appointment as a scheduled) Diet: Dialysis Renal and Low Sodium (2gm) Fluids: 1500ml (6 cups) Addtl Provider Instructions: Please take precaution to avoid falls. Continue current medications. Keep tuan ointments with hemodialysis Prescriptions: Continued alprazolam 0.5 mg tablet 0.5 mg PO MOWEFR RF: 0 clonidine HCl 0.2 mg tablet 0.2 mg PO BID RF: 0 amitriptyline 25 mg tablet 25 mg PO HS RF: 0 pantoprazole 40 mg tablet,delayed release (DR/EC) 40 mg PO BID RF: 0 gabapentin 100 mg capsule 100 mg PO HS RF: 0 metoclopramide HCl 10 mg tablet 10 mg PO TIDM RF: 0 sertraline 100 mg tablet 150 mg PO DAILY RF: 0 Veltassa 8.4 gram Powder In Packet 8.4 g PO DAILY RF: 0 carvedilol 25 mg Tablet 25 mg PO BIDM RF: 0 trazodone 100 mg Tablet 100 mg PO HS RF: 0 Auryxia 210 mg iron tablet 3 tab PO TIDM RF: 0 cinacalcet 30 mg Tablet 60 mg PO HS RF: 0 cholecalciferol (vitamin D3) [Vitamin D3] 1,000 unit Tablet 3,000 unit PO DAILY RF: 0 Stand-Alone Forms: [facility] Discharge Orders: Discharge Order (Routine); Ordered 01/19/19 Ordered By: Harley Gonzales Admission Data Admit Date/Time: 01/18/19 19:32 Attending Provider: Harley Gonzales Admit Provider: Sami Jaramillo Primary Care Provider: Fanny Chen Other Providers: Sami Jaramillo ; Delicia Brambila Service: Medical Other Interventions: Discharge Summary Assessment (RN) Last Done: 01/19/19 11:52 DC Date/Time DO NOT enter until pt leaves facility: 01/19/19 13:29
--- NOTE | 2019-01-19 19:03 | Nephrology Consultation ---
Date of Consultation January 19, 2019 Assessment & Plan (1) ESRD (end stage renal disease) on dialysis: he had hd today for 2 hrs w/ 2.5 L UF; will resume regular HD tomorrow am; per HD RN notes edema and bp improved on tx Present on Admission?: Yes (2) Ileus: per primary service > managed conservatively; improved though still present by day of d/c; imaging w/o acute issue Present on Admission?: Yes History of Present Illness Reason for Consultation: ESRD on dialysis Requesting Physician: Dr Jaramillo Attending Physician: Harley Gonzales MD History of Present Illness 38 y/o M admitted over night after he had severe abdominal pain after less than 30 min on dialysis yesterday and came to ER. I saw and evaluated him this am at about 0830; I was also involved in his care the evening before in discussion w/ ER. 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 He dialyzes MWF; last tx was 01/15. At HD pt had sudden periumbilical pain w/ radiation to back and NBNB emesis. He had had one loose bm earlier in day w/o melena or hematochezia. He has not had F or been acutely ill. Pt describes pain as like his gastroparesis pain. It resolved w/ pain meds and antiemetics. He was eager for d/c but I asked for him to stay so that we could monitor abd pain and also to get some dialysis - this anuric pt would have otherwise had 4 days w/o treatment. Alternative OP dialysis on his off day was not available - he lives in [place] and has few transport opportunities; only HD would have been in [place]; the [facility] units in [place] will not accept this pt d/t past behavioral issues. The plan had originally been to do dialysis last evening; however the dialysis nurse was called to an emergency treatment. I opted to move treatment to this am since his case was not urgent. Pt w/o c/o this am except anxious for d/c Allergies Allergy/AdvReac Type Severity Reaction Status Date / Time minoxidil AdvReac Intermediate priapism Verified 01/18/19 14:22 prednisone AdvReac Intermediate SEVERE GI Verified 01/18/19 14:22 UPSET, CONSTIPATION terazosin AdvReac Intermediate priapism Verified 01/18/19 14:22 Home Medications Home Medications Medication Instructions Recorded Confirmed Type Veltassa 8.4 g PO DAILY 06/23/18 01/18/19 History alprazolam 0.5 mg PO MOWEFR 06/23/18 01/18/19 History amitriptyline 25 mg PO HS 06/23/18 01/18/19 History clonidine HCl 0.2 mg PO BID 06/23/18 01/18/19 History gabapentin 100 mg PO HS 06/23/18 01/18/19 History metoclopramide HCl 10 mg PO TIDM 06/23/18 01/18/19 History pantoprazole 40 mg PO BID 06/23/18 01/18/19 History sertraline 150 mg PO DAILY 06/23/18 01/18/19 History carvedilol 25 mg PO BIDM 11/06/18 01/18/19 History trazodone 100 mg PO HS 11/06/18 01/18/19 History Auryxia 3 tab PO TIDM 01/18/19 01/18/19 History cholecalciferol (vitamin D3) 3,000 unit PO DAILY 01/18/19 01/18/19 History [Vitamin D3] cinacalcet 60 mg PO HS 01/18/19 01/18/19 History Patient History Medical History Gastroparesis (Chronic) Insomnia (Chronic) Kidney transplant failure (Chronic) Dialysis patient (Chronic) HTN (hypertension) (Chronic) Depression (Chronic) Thrombocytopenia (Chronic) GERD (gastroesophageal reflux disease) (Chronic) Anxiety (Chronic) CAD (coronary artery disease) (Chronic) "s/p stent placement" ESRD (end stage renal disease) on dialysis (Chronic) Surgical History Stented coronary artery (Chronic) "stents x 2 in [place] in 2006 and 2010" Fistula (Chronic) Kidney transplant status (Chronic) "R 1984 and L 2012" Family History Father Diabetes Hypertension Kidney disease Mother Hypertension Kidney disease Social History Preferred Language: Bengali Communication Ability: Effective Lunchroom Aide Required: No Beliefs That Will Affect Care: Jehovah'S Witness Jehovah'S Witness Beliefs: Judaism marital status: Current Living Situation: Parent, Family and Other Current Living Situation Comment: with mom current occupational status: unemployed and disabled Other Information That Helps Us Care for You: No Feels Safe at Home: Yes Smoking Status: Former smoker Do You Dip or Chew Tobacco: No Smoking End Date: January 21, 2017 Hx Alcohol Use: No Hx Substance Use: No Review of Systems Review of Systems: All systems reviewed & are unremarkable except as noted in HPI & below Constitutional: + fatigue and + weight gain; no fever, no body aches and no weakness Eyes: no worsening vision Respiratory: no cough and no dyspnea Cardiovascular: + edema; no chest pain and no palpitations Gastrointestinal: as per Subjective / HPI Genitourinary: + problem reported (anuric) Musculoskeletal: + stiffness; no muscle weakness Integumentary: no rash and no non-healing lesions Physical Exam Constitutional: well developed and well nourished Eyes: EOM intact bilaterally marked facial and periorbital edema ENMT: Ears: no external ear abnormality Nose: no external nose abnormality Mouth: + dry oral mucous membranes Neck: no nuchal rigidity Respiratory: normal respiratory effort Auscultation: + diminished lung sounds and + wheezes (occasional exp) Cardiovascular: Rate/Rhythm: regular rate and regular rhythm Extremities: + edema and + AV fistula Gastrointestinal (Abdomen): Inspection/Auscultation: normal bowel sounds Percussion/Palpation: + abdomen tender and abdomen soft Musculoskeletal: Extremities: strength 5/5 throughout leon, fluent speech Skin: no rashes, warm and dry Neurologic: leon, fluent speech, no tremor Psychiatric: Orientation: alert and oriented x 3 Speech: normal rate/rhythm/volume of speech Affect: + anxious affect Results & Data Vital Signs (Past 12 Hours) Vital Signs Temp Pulse Pulse Pulse Pulse Resp BP 01/19/19 12:58 37.3 C 88 01/19/19 12:20 89 134/94 01/19/19 12:00 88 139/89 01/19/19 11:52 37.1 C 75 81 87 16 01/19/19 11:40 86 148/99 H 01/19/19 11:35 37.1 C 87 16 01/19/19 11:20 87 147/108 H 01/19/19 11:00 89 166/117 H 01/19/19 10:40 79 165/124 H 01/19/19 10:30 82 172/108 H 01/19/19 10:23 36.6 C 98 H 01/19/19 08:00 36.6 C 81 18 BP Pulse Ox 01/19/19 12:58 142/111 H 01/19/19 12:20 01/19/19 12:00 01/19/19 11:52 135/77 100 01/19/19 11:40 01/19/19 11:35 135/77 100 01/19/19 11:20 01/19/19 11:00 01/19/19 10:40 01/19/19 10:30 01/19/19 10:23 01/19/19 08:00 145/97 H 94 Laboratory Results Abnormal lab results 01/19/19 01/19/19 Range/Units 07:47 07:47 RBC 3.88 L (4.7-6.1) M/uL Hgb 11.7 L (14.0-18.0) g/dL Hct 35.8 L (42-52) % RDW Std Deviation 50.5 H (36.4-46.3) fL RDW Coeff of Junito 15.0 H (11.5-14.5) % Plt Count 117 L (130-400) K/uL MPV 11.0 H (7.4-10.4) fL Sodium 133 L (136-145) mmol/L Chloride 95 L (98-107) mmol/L Anion Gap 12.0 H (3-11) BUN 64 H (7-18) mg/dl Creatinine 11.10 H* D (0.6-1.4) mg/dl BUN/Creatinine Ratio 5.7 L (10-20) Diagnostic Findings abd u/s > unremarkable abd/pelv ct 1. Possible slight pericholecystic edematous change of the gallbladder. 2. Right upper quadrant ultrasound is recommended as follow-up. 3. Mild nonobstructive generalized ileus. 4. Mild chronic diverticulosis of the descending and sigmoid colonic regions. 5. Renal atrophy and stable postoperative changes as noted.
== END 2019-01-19 13:29 | disposition home or self-care (01) | DRG 388 ==
LOC: ED 12:26 → 2N 19:32 → SUATTDRO 19:32 → 2N 20:11

== ENCOUNTER 2020-12-18 10:29 | Inpatient (IN) ==
--- NOTE | 2020-12-18 14:04 | History & Physical Report ---
Date of Service December 18, 2020 Assessment & Plan (1) Left upper extremity deep vein thrombosis: Left upper extremity pain and fistula pain for about 7 days Ultrasound of the upper extremity showed deep venous thrombosis and fistula thrombosis Has been started on intravenous heparin Control of pain Elevated D-dimer of more than 1000 Does not have any respiratory symptoms and/or tachycardia D-dimer could be high due to end-stage renal disease and venous thrombosis Doubt any pulmonary embolism (2) AV fistula occlusion: Fistula site at the left forearm is very tender especially in the upper part Ultrasound did show partial thrombosis Vascular surgery has been consulted for further evaluation (3) ESRD (end stage renal disease) on dialysis: End-stage renal disease on hemodialysis History of failed renal transplant Missed dialysis this morning-potassium is 5.3 and BUN is 58 with creatinine 10.50. Discussed with lineman a class no acute indication for dialysis today (4) HTN (hypertension): Remains controlled and will continue current medications (5) GERD (gastroesophageal reflux disease): (6) CAD (coronary artery disease): Has history of CAD with cardiac stenting EKG remains in sinus rhythm without any ST-T wave changes Troponin has been negative No acute symptoms (7) Kidney transplant failure: Chronic thrombocytopenia Monitor thrombocytes CODE STATUS Full DVT prophylaxis Has been on heparin Admission and Anticipated Discharge Date Admission Date: December 18, 2020 History of Present Illness Chief Complaint: Pain in the left shoulder and left arm for the last 7 days Primary Care Provider: Fanny Chen MD He is a 40-year-old male with significant past medical history including end- stage renal disease on hemodialysis, CAD status post stenting coronary artery, hypertension, history of failed kidney transplant, GERD, depression and history of thrombocytopenia apparently has been complaining of pain involving the left shoulder and left forearm for the last 7 days. His pain has been worsening with any movement of the left upper extremity and worse pain as of today involving the left anterior shoulder area with some questionable swelling and also tenderness and swelling involving the AV fistula in left forearm. He also complained to have some numbness and tingling involving the left arm but no discoloration of the left upper extremity. Denies any fever and/or chills, no chest pain and/or palpitation, no nausea and or vomiting and no shortness of breath cough or hemoptysis. The ER physician Dr. Atkinson in [facility] did talk to Dr. Aguirre the on-call vascular surgeon about the findings who will be consulted and will see the patient tomorrow. Gutter Installer on-call was also informed about the admission. He missed his dialysis this morning but can have dialysis tomorrow morning given his current stable status without any significant electrolyte abnormalities. He was evaluated in the [place] emergency room and was transferred to [facility] for continued care Allergies Allergy/AdvReac Type Severity Reaction Status Date / Time minoxidil AdvReac Intermediate priapism Verified 11/06/20 15:19 prednisone AdvReac Intermediate SEVERE GI Verified 11/06/20 15:19 UPSET, CONSTIPATION terazosin AdvReac Intermediate priapism Verified 11/06/20 15:19 Home Medications Medication Instructions Recorded Confirmed Type alprazolam 0.5 mg PO TID 06/23/18 12/18/20 History clonidine HCl 0.3 mg PO Q8 06/23/18 12/18/20 History pantoprazole 40 mg PO BID 06/23/18 12/18/20 History carvedilol 25 mg PO BID 11/06/18 12/18/20 History cholecalciferol (vitamin D3) 3,000 unit PO QAM 01/18/19 12/18/20 History [Vitamin D3] gabapentin 100 mg capsule 100 mg PO HS cap 03/09/19 12/18/20 History Levothyroxine 50 mcg PO QAM 11/06/20 12/18/20 History amitriptyline 100 mg PO HS 11/06/20 12/18/20 History aspirin 81 mg PO QAM 11/06/20 12/18/20 History cinacalcet 30 mg PO DAILY 11/06/20 12/18/20 History hydralazine 50 mg PO BID 11/06/20 12/18/20 History metoclopramide HCl 5 mg PO TID 11/06/20 12/18/20 History sertraline 100 mg PO DAILY 11/06/20 12/18/20 History sevelamer HCl [Renagel] 1,600 mg PO TID 11/06/20 12/18/20 History sucroferric oxyhydroxide [Velphoro] 500 mg PO TID 11/06/20 12/18/20 History trazodone 100 mg PO HS 11/06/20 12/18/20 History Past Med/Surg History Medical History Anxiety and depression Arthritis AV fistula LEFT BICEP CAD (coronary artery disease) Chronic kidney disease Dialysis patient M/W/F AT [facility] ESRD (end stage renal disease) on dialysis Gastroparesis GERD (gastroesophageal reflux disease) Glomerulonephritis "BORN WITH" HTN (hypertension) Hx of pancreatitis Hypothyroidism Insomnia Kidney transplant failure Surgical History History of colonoscopy History of esophagogastroduodenoscopy (EGD) History of heart artery stent OVER 10 YEARS >1 STENT PLACED [facility]) Kidney transplant status "R 1984 and L 2012" [place] teeth removed Family History Father Diabetes Kidney disease Hypertension Family history of diabetes mellitus Mother Kidney disease Hypertension Other No family history of adverse response to anesthesia Social History Smoking Status: Former smoker Second Hand Exposure: Yes (IN THE PAST); Hx Alcohol Use: No Hx Substance Use: No Preferred Language: Kinyarwanda Communication Ability: Effective Auto Collision Repair Instructor Required: No Beliefs That Will Affect Care: None marital status: Current Living Situation: Alone Current Living Situation Comment: with mom current occupational status: unemployed and disabled Other Information That Helps Us Care for You: No Feels Safe at Home: Yes Assistive Devices: Glasses Review of Systems Review of Systems: All systems reviewed & are unremarkable except as noted in HPI & below Physical Exam Physical Exam: Lying in bed with some distress due to left upper extremity pain Constitutional: well developed, well nourished and + ill appearing Eyes: PERRL, conjunctivae normal, anicteric sclerae ENMT: external ear and nose normal, oropharynx normal Neck: trachea midline, no thyromegaly Respiratory: no respiratory distress Auscultation: lungs clear to auscultation bilaterally Cardiovascular: Rate/Rhythm: regular rate and regular rhythm Heart Sounds: no murmur Extremities: no edema Gastrointestinal (Abdomen): Inspection/Auscultation: abdomen not distended Percussion/Palpation: abdomen soft; abdomen nontender Musculoskeletal: Shoulder: + shoulder abnormal to inspection (Lt shoulder and adjoining area especially the anterior aspect is tender); no skin erythema AV fistula over left arm showed tenderness involving the upper part without any obvious redness over it. Left upper extremity pulses were palpable Neurologic: Alert awake and oriented x3. No focal sensory and motor deficit appreciated Psychiatric: A+Ox3, euthymic affect Lymphatic: no cervical or axillary lymphadenopathy Results & Data Results & Data ([facility]) Vital Signs (Past 12 Hours) Vital Signs Temp Pulse Resp BP Pulse Ox 12/18/20 13:17 36.7 C 66 20 125/56 L 93 Laboratory Results From [facility]; Sodium 137, potassium 5.3, chloride 102, carbon oxide 23, BUN 58 and creatinine 10.50 Glucose 98, calcium 7.4, alkaline phos slightly elevated at 228 Troponin1 less than 0.015, magnesium 2.3, INR 1.17 and PTT 47.1. D-dimer 1355 White count 5.83, hemoglobin 12.3, platelet 87 with unremarkable differential EKG sinus rhythm rate of 72/min no significant ST-T wave changes Diagnostic Findings Chest x-ray-no acute disease and no CHF Ultrasound of the left upper extremity showed obstructing left subclavian deep venous thrombosis and incompletely obstructing thrombus in the fistula Code Status & VTE Plan VTE Prophylaxis Plan VTE Prophylaxis will be ordered: Yes
[2020-12-18] MEDS: Heparin IV Adult Wt-Based Standard *NO* Bolus Protocol IV SCH (14:40)
[2020-12-18] MEDS: HEPARIN SODIUM/DEXTROSE 25,000 UNITS/500 ML BAG IV SCH (15:22)
[2020-12-18] MEDS: HYDROmorphone INJ 0.5 MG/0.5 ML SYR IV PRN ×2 (15:26→20:11)
[2020-12-18 15:55] LABS: Partial Thromboplastin Ratio 4.6
[2020-12-18 16:48] LABS: Partial Thromboplastin Time 120.4 Seconds (21.0-31.0)
[2020-12-18] MEDS: SEVELAMER HCL 800 MG TABLET PO SCH (17:18)
[2020-12-18] MEDS: AMITRIPTYLINE HCL 100 MG TAB PO SCH (20:12)
[2020-12-18] MEDS: hydrALAZINE TAB 50 MG TAB PO SCH (20:13)
[2020-12-18] MEDS: carvediloL 25 MG TAB PO SCH (20:13)
[2020-12-18] MEDS: PANTOprazole 40 MG TAB PO SCH (20:13)
[2020-12-18] MEDS: GABAPENTIN 100 MG CAP PO SCH (20:13)
[2020-12-18] MEDS: METOCLOPRAMIDE HCL 5 MG TABLET PO SCH (20:13)
[2020-12-18] MEDS: traZODone HCL 100 MG TAB PO SCH (21:54)
[2020-12-18] MEDS: cloNIDine HCL 0.1 MG TAB PO SCH (21:54)
[2020-12-18] MEDS: ALPRAZolam 0.5 MG TABLET PO SCH (21:54)
[2020-12-18 23:35] LABS: Partial Thromboplastin Ratio 2.3
[2020-12-18 23:37] LABS: Partial Thromboplastin Time 60.7 Seconds (21.0-31.0)
[2020-12-19] MEDS: HYDROmorphone INJ 0.5 MG/0.5 ML SYR IV PRN ×6 (00:29→21:41)
[2020-12-19 05:07] LABS: Partial Thromboplastin Ratio 2.6
[2020-12-19 05:13] LABS: Hematocrit (blood only) 36.5 % (42-52); Mean Corpuscular Hemoglobin 31.3 pg (25-34); Mean Corpuscular Hgb Conc 32.9 g/dL (32-36); Mean Corpuscular Volume 95.3 fL (80-100); Mean Platelet Volume 11.3 fL (7.4-10.4); Platelet Count 80 K/uL (130-400); RDW Coefficient of Variation 17.1 % (11.5-14.5); RDW Standard Deviation 59.5 fL (36.4-46.3); Red Blood Count 3.83 M/uL (4.7-6.1); White Blood Count 5.54 K/uL (4.8-10.8)
[2020-12-19 05:16] LABS: Basophils # (auto) 0.01 K/uL (0-0.2); Basophils % (auto) 0.2 %; Eosinophils # (auto) 0.15 K/uL (0-0.5); Eosinophils % (auto) 2.7 %; Immature Granulocytes # (auto) 0.01 K/uL (0.00-0.02); Immature Granulocytes % (auto) 0.2 %; Lymphocytes # (auto) 1.25 K/uL (1.2-3.4); Lymphocytes % (auto) 22.6 %; Monocytes # (auto) 0.36 K/uL (0.11-0.59); Monocytes % (auto) 6.5 %; Neutrophils # (auto) 3.76 K/uL (1.4-6.5); Neutrophils % (auto) 67.8 %; Platelet Estimate Decreased (Normal)
[2020-12-19 05:17] LABS: Partial Thromboplastin Time 68.4 Seconds (21.0-31.0)
[2020-12-19 05:26] LABS: Calcium 7.9 mg/dl (8.5-10.1); Creatinine Clr Calc Pharmacy 6.8 ml/min; Est GFR (Non-African American) 4.3 ml/min; Phosphorus 4.8 mg/dl (2.5-4.9)
[2020-12-19] MEDS ORDERED: CALCIUM GLUCONATE 10% 1,000 MG in SODIUM CHLORIDE 0.9% 50 ML IV ONE (05:45)
[2020-12-19] MEDS ORDERED: DEXTROSE 50% 50 ML SYRINGE IV ONE (05:45)
[2020-12-19] MEDS ORDERED: INSULIN HUMAN REGULAR PER UNIT 10 UNITS in SYRINGE 9.9 ML IV ONE (05:46)
[2020-12-19] MEDS: cloNIDine HCL 0.1 MG TAB PO SCH ×3 (05:55→21:41)
[2020-12-19] MEDS: LEVOTHYROXINE SODIUM 50 MCG TABLET PO SCH (05:55)
[2020-12-19] MEDS ORDERED: NITROGLYCERIN 2% OINTMENT 30GM TUBE ONE (07:42)
[2020-12-19] MEDS ORDERED: DEXTROSE 50% 50 ML SYRINGE IV STA (07:48)
[2020-12-19] MEDS ORDERED: NITROGLYCERIN 2% OINTMENT 30GM TUBE EXT ONE (07:50)
--- NOTE | 2020-12-19 07:54 | Communication Note ---
Date of Service: December 19, 2020 At around 7:30 AM a ericka lee was called. The patient was seen and examined right away. He was having occasional jerking movements of the extremities, he was alert and awake without any other distress but noted to be very high blood pressure of systolic more than 220 and blood glucose of 20 with profuse sweating. He was given stat 50 mL of 50% dextrose Nitropatch morning's was given to control blood pressure The shaking movements stopped and he was conversing normally developed We will give D10 75 cc an hour for few hours to maintain blood glucose Hold any insulin Dr Shen mary
[2020-12-19] MEDS ORDERED: DEXTROSE 10% 1,000 ML IV SCH (08:00)
[2020-12-19] MEDS: SERTRALINE HCL 100 MG TABLET PO SCH (08:00)
[2020-12-19] MEDS: PANTOprazole 40 MG TAB PO SCH ×2 (08:00→20:52)
[2020-12-19] MEDS: SEVELAMER HCL 800 MG TABLET PO SCH ×3 (08:00→17:16)
[2020-12-19] MEDS: CHOLECALCIFEROL 1,000 UNITS 25 MCG TAB PO SCH (08:01)
[2020-12-19] MEDS: hydrALAZINE TAB 50 MG TAB PO SCH ×2 (08:01→20:53)
[2020-12-19] MEDS: CINACALCET HCL 30 MG TAB PO SCH (08:01)
[2020-12-19] MEDS: ASPIRIN 81 MG ECTAB PO SCH (08:01)
[2020-12-19] MEDS: ALPRAZolam 0.5 MG TABLET PO SCH ×3 (08:02→21:00)
[2020-12-19] MEDS: carvediloL 25 MG TAB PO SCH ×2 (08:02→20:55)
[2020-12-19] MEDS: METOCLOPRAMIDE HCL 5 MG TABLET PO SCH ×3 (08:02→20:55)
--- NOTE | 2020-12-19 09:47 | Consultation ---
Date of Consultation December 19, 2020 Assessment & Plan (1) ESRD (end stage renal disease) on dialysis: Pt with subclavian v thrombus per US report. Will have US reviewed by Dr Aguirre. L chest/shoulder/back with varicosities, but LUE without significant edema, so it's possible subclavian thrombus has been present for some time. LUE AVF with + thrill/bruit. Recommend attempt use of AVF for HD. If unable to use, will consider for fistulagram/venogram with intervention, but will require temporary HD line until that can be done. Further recommendations after review of US. History of Present Illness Reason for Consultation: L subclavian thrombus Attending Physician: Harley Gonzales MD History of Present Illness 40 yo m with hx of ESRD on HD, known to Dr Aguirre for LUE AV access, seen in consultation today for L subclavian v thrombus noted on US. Pt states he developed some L shoulder discomfort and felt his AVF thrill was not as strong, so went to ED at [facility]. Pt was transferred to [facility] after the US demonstrated L subclavian v thrombus. Pt states he has had varicose veins across his chest/shoulder/back for at least 2 months. Denies pain or edema of L arm. Has been running fine at oupt HD unit per pt, last HD session Friday, 12/15. Denies ELAM, fever, chest pain, SOB, abd pain, N/V, rest pain, claudication, other complaints. Disc with imaging from [facility] being loaded to PACS. Allergies Allergy/AdvReac Type Severity Reaction Status Date / Time minoxidil AdvReac Intermediate priapism Verified 11/06/20 15:19 prednisone AdvReac Intermediate SEVERE GI Verified 11/06/20 15:19 UPSET, CONSTIPATION terazosin AdvReac Intermediate priapism Verified 11/06/20 15:19 Home Medications Medication Instructions Recorded Confirmed Type alprazolam 0.5 mg PO TID 06/23/18 12/18/20 History clonidine HCl 0.3 mg PO Q8 06/23/18 12/18/20 History pantoprazole 40 mg PO BID 06/23/18 12/18/20 History carvedilol 25 mg PO BID 11/06/18 12/18/20 History cholecalciferol (vitamin D3) 3,000 unit PO QAM 01/18/19 12/18/20 History [Vitamin D3] gabapentin 100 mg capsule 100 mg PO HS cap 03/09/19 12/18/20 History Levothyroxine 50 mcg PO QAM 11/06/20 12/18/20 History amitriptyline 100 mg PO HS 11/06/20 12/18/20 History aspirin 81 mg PO QAM 11/06/20 12/18/20 History cinacalcet 30 mg PO DAILY 11/06/20 12/18/20 History hydralazine 50 mg PO BID 11/06/20 12/18/20 History metoclopramide HCl 5 mg PO TID 11/06/20 12/18/20 History sertraline 100 mg PO DAILY 11/06/20 12/18/20 History sevelamer HCl [Renagel] 1,600 mg PO TID 11/06/20 12/18/20 History sucroferric oxyhydroxide [Velphoro] 500 mg PO TID 11/06/20 12/18/20 History trazodone 100 mg PO HS 11/06/20 12/18/20 History Patient History Medical History Anxiety and depression Arthritis AV fistula LEFT BICEP CAD (coronary artery disease) Chronic kidney disease Dialysis patient M/W/F AT [facility] ESRD (end stage renal disease) on dialysis Gastroparesis GERD (gastroesophageal reflux disease) Glomerulonephritis "BORN WITH" HTN (hypertension) Hx of pancreatitis Hypothyroidism Insomnia Kidney transplant failure Surgical History History of colonoscopy History of esophagogastroduodenoscopy (EGD) History of heart artery stent OVER 10 YEARS >1 STENT PLACED (FOLLOWS WITH [facility]) Kidney transplant status "R 1984 and L 2012" [place] teeth removed Family History Father Diabetes Kidney disease Hypertension Family history of diabetes mellitus Mother Kidney disease Hypertension Other No family history of adverse response to anesthesia Social History Smoking Status: Former smoker Second Hand Exposure: Yes (IN THE PAST); Hx Alcohol Use: No Hx Substance Use: No Preferred Language: Pashto Communication Ability: Effective Speech Therapist Required: No Beliefs That Will Affect Care: None marital status: Current Living Situation: Alone Current Living Situation Comment: with mom current occupational status: unemployed and disabled Other Information That Helps Us Care for You: No Feels Safe at Home: Yes Assistive Devices: None Review of Systems Review of Systems: All systems reviewed & are unremarkable except as noted in HPI & below Physical Exam Constitutional: WD/WN, vitals as above Eyes: PERRL, conjunctivae normal, anicteric sclerae ENMT: Ears: no hearing impairment Neck: trachea midline Respiratory: normal respiratory effort, lungs clear to auscultation Auscultation: + diminished lung sounds Cardiovascular: Rate/Rhythm: regular rate and regular rhythm Vessels: femoral pulses present, posterior tibial pulses present, dorsalis pedis pulses present and brachial pulses present; + abnormal peripheral pulses Extremities: + varicosities (across left chest/shoulder/back) and + AV fistula (LUE with 2 venous aneurysms, +thrill/bruit) Gastrointestinal (Abdomen): normal bowel sounds, soft, nontender, no hepatosplenomegaly Musculoskeletal: no cyanosis or clubbing, extremities motor strength 5/5 Skin: no rashes, warm and dry Neurologic: moves all extremities; no focal motor deficits and not confused Psychiatric: A+Ox3, euthymic affect Results & Data ([facility]) Vital Signs (Past 12 Hours) Vital Signs Temp Pulse Pulse Resp BP Pulse Ox 12/19/20 07:50 36.5 C 78 20 118/85 92 12/19/20 07:40 81 18 205/135 H 92 12/19/20 04:06 36.7 C 78 20 125/81 91 12/18/20 23:34 74 12/18/20 22:49 36.8 C 80 18 159/84 H 94
[2020-12-19] MEDS ORDERED: HEPARIN SOD (PORCINE) 1000 UNIT/ML IV ONE (11:02)
[2020-12-19] MEDS ORDERED: SODIUM CHLORIDE 0.9% 1000ML 1,000 ML IV PRN (11:02)
[2020-12-19] MEDS ORDERED: HEPARIN SOD (PORCINE) 1000 UNIT/ML IV SCH (11:15)
[2020-12-19] MEDS: Heparin IV Adult Wt-Based Standard *NO* Bolus Protocol IV SCH (11:55)
--- NOTE | 2020-12-19 13:45 | Consultation Report ---
DATE OF CONSULTATION: 12/19/2020 NEPHROLOGY CONSULTATION NOTE REASON FOR CONSULT: Dialysis patient admitted with failed AV fistula. HISTORY OF PRESENT ILLNESS: The patient is a 40-year-old male with history of end-stage renal disease, on hemodialysis Friday, Friday, Friday, currently in [place], [place]. Yesterday before dialysis, he developed some chest pain and was instructed by his outpatient dialysis unit to go to the Emergency Department, which he did. The patient also noted that his AV fistula bruit and thrill was absent, and he did have an ultrasound of the AV fistula done at the [facility] and was told it has a thrombus. It is worth noting the patient has significant collateral veins all around his chest, shoulder as well as back for the last few months. He was also evaluated by the vascular access center in [place] and was told the collaterals around the AV fistula is very strong and it was the reason why his fistula was still working despite the thromobsed AVF. . At this point, he does not have any chest pain. Dialysis nurse just now cannulated his AV fistula, and so far, we are not having any issues with doing dialysis. He was earlier seen by vascular surgeon and the plan was to take him to the OR for possible fistulogram and vascular intervention. However, his potassium was high and then was given glucose and insulin, which dropped his blood glucose too low and the procedure was then postponed. The patient denies any other acute symptoms at this time. ALLERGIES: REVIEWED AND INCLUDE MINOXIDIL, PREDNISONE AND TERAZOSIN. HOME MEDICATIONS: List was also reviewed in detail and is as per the reconciliation list. PAST MEDICAL AND SURGICAL HISTORY: Includes anxiety, depression. AV fistula, left upper arm. Coronary artery disease, chronic kidney disease. ESRD, on Friday, Friday, Friday. Gastroparesis, congenital renal disease, history of failure of kidney transplant, history of pancreatitis, hypothyroidism, colonoscopy, EGD, coronary artery stent, kidney transplant right in 1984 and left in 2012. FAMILY HISTORY: Positive for diabetes, kidney disease in father. Mother also had some kidney disease. SOCIAL HISTORY: Former smoker. . Lives alone with his mom. Unemployed and disabled at this time. REVIEW OF SYSTEMS: All systems reviewed and is unremarkable unless stated otherwise in HPI. PHYSICAL EXAMINATION: GENERAL: Young white male who is not in any overt respiratory distress at this time. HEENT: Mucous membrane is moist. NECK: Supple. No jugular venous distention. CHEST: Bilaterally clear to auscultation. CARDIOVASCULAR: S1, S2 regular. ABDOMEN: Soft, nontender. EXTREMITIES: Show no edema. SKIN: Shows significant collateral veins present on his anterior chest wall on the left side as well as in the posterior back side as well as around the arm. These are not new. NEUROLOGIC: Awake, alert, oriented x3. Moves all 4 extremities. No focal deficit noted. VITAL SIGNS: Show blood pressure 112/73, pulse 68, temperature 36.4, 92% on room air. ASSESSMENT AND PLAN: A 40-year-old male who presented to the hospital cleared from [facility] because of problem with vascular access. I have been consulted for dialysis management. End-stage renal disease: We were able to cannulate his fistula today without major difficulty. On detailed questioning with the patient, it appears the patient has had thrombus in his fistula for a long time and has developed significant collateral veins around the fistula. He has already been evaluated by vascular access center in [place] and told that not much can be done for this chronic thrombus in his fistula. However, as of now, the fistula seems to be able to support dialysis through the collaterals. Further decision about intervention will be done by Dr. Aguirre. His potassium was high earlier today as a result of missing dialysis yesterday, but if you are able to dialyze him today, there should not be any problem with the potassium. Depending on his possible discharge day, we will decide about dialysis tomorrow or not. No evidence of fluid overload. [facility]
--- NOTE | 2020-12-19 14:22 | Hospitalist Progress Note ---
Date of Service December 19, 2020 Assessment & Plan (1) Left upper extremity deep vein thrombosis: Left upper extremity pain and fistula pain for about 7 days Ultrasound of the upper extremity showed deep venous thrombosis and fistula thrombosis Has been started on intravenous heparin Pain is better controlled with current medications Will need about 3 months of anticoagulation following discharge-choice of agent will be decided by the patient Elevated D-dimer of more than 1000 Does not have any respiratory symptoms and/or tachycardia D-dimer could be high due to end-stage renal disease and venous thrombosis Doubt any pulmonary embolism (2) AV fistula occlusion: Fistula site at the left forearm is very tender especially in the upper part Ultrasound did show partial thrombosis Appreciate vascular surgery input and recommendation (3) ESRD (end stage renal disease) on dialysis: End-stage renal disease on hemodialysis History of failed renal transplant Missed dialysis this morning-potassium is 5.3 and BUN is 58 with creatinine 10.50. Discussed with nailer hand no acute indication for dialysis today Potassium went up to 6.0 today He is having dialysis through the fistula site as the thrombosis seems to be old (4) HTN (hypertension): Remains controlled and will continue current medications (5) GERD (gastroesophageal reflux disease): (6) CAD (coronary artery disease): Has history of CAD with cardiac stenting EKG remains in sinus rhythm without any ST-T wave changes Troponin has been negative No acute symptoms (7) Kidney transplant failure: Chronic thrombocytopenia Monitor thrombocytes CODE STATUS Full DVT prophylaxis Has been on heparin (8) Hypoglycemia: Received 10 unit of regular insulin and 1 ampoule of D50 to control hyperkalemia Has a profound hypoglycemia with a blood sugar of 22 with profuse sweating and abnormal jerking movements of the extremities At that time his blood pressure was noted to be very high with a systolic more than 200 A code purple was called and that was managed appropriately with intravenous D50 and also use of Nitropaste to control blood pressure Patient did not have any loss of consciousness and all of his symptoms resolved Admission and Anticipated Discharge Date Admission Date: December 18, 2020 Subjective 12/19/2020 The patient was seen and examined in telemetry unit He has had an episode of shaking spells with profuse sweating with blood sugar up 20s and very high blood pressure at around 720- 730 this morning Code jesus was called and that was managed appropriately with intravenous glucose and Nitropaste for BP control He was conversing normally after that Review of Systems Review of Systems: All systems reviewed and are unremarkable except as noted below Constitutional: + chills and + sweats (Profuse sweating) Neurologic: A few jerking movements involving the extremities Physical Exam Physical Exam: Lying in bed with some distress due to left upper extremity pain Constitutional: well developed, well nourished and + ill appearing Eyes: PERRL, conjunctivae normal, anicteric sclerae ENMT: external ear and nose normal, oropharynx normal Neck: trachea midline, no thyromegaly Respiratory: no respiratory distress Auscultation: lungs clear to auscultation bilaterally Cardiovascular: Rate/Rhythm: regular rate and regular rhythm Heart Sounds: no murmur Extremities: no edema Gastrointestinal (Abdomen): Inspection/Auscultation: abdomen not distended Percussion/Palpation: abdomen soft; abdomen nontender Musculoskeletal: Shoulder: + shoulder abnormal to inspection (Lt shoulder and adjoining area especially the anterior aspect is tender); no skin erythema Neurologic: Alert, awake and oriented x3 Psychiatric: A+Ox3, euthymic affect Lymphatic: no cervical or axillary lymphadenopathy Results & Data [facility] Vital Signs (Past 12 Hours) Vital Signs Temp Pulse Pulse Pulse Resp BP BP 12/19/20 14:00 66 103/76 12/19/20 13:40 69 106/85 12/19/20 13:20 70 137/86 12/19/20 13:00 66 121/87 12/19/20 12:40 68 116/83 12/19/20 12:20 68 110/76 12/19/20 12:00 68 112/73 12/19/20 11:40 69 107/82 12/19/20 11:20 67 99/58 L 12/19/20 11:00 75 132/95 12/19/20 10:40 72 119/89 12/19/20 10:20 36.4 C L 69 12/19/20 08:00 71 12/19/20 07:50 36.5 C 78 20 118/85 12/19/20 07:40 81 18 205/135 H 12/19/20 04:06 36.7 C 78 20 125/81 Pulse Ox 12/19/20 14:00 12/19/20 13:40 12/19/20 13:20 12/19/20 13:00 12/19/20 12:40 12/19/20 12:20 12/19/20 12:00 12/19/20 11:40 12/19/20 11:20 12/19/20 11:00 12/19/20 10:40 12/19/20 10:20 12/19/20 08:00 12/19/20 07:50 92 12/19/20 07:40 92 12/19/20 04:06 91 Laboratory Results Short CBC 12/19/20 Range/Units 04:27 WBC 5.54 (4.8-10.8) K/uL Hgb 12.0 L (14.0-18.0) g/dL Hct 36.5 L (42-52) % Plt Count 80 L (130-400) K/uL BMP 12/19/20 04:27 Sodium 133 L Potassium 6.0 H Chloride 103 Carbon Dioxide 21 BUN 63 H Creatinine 12.70 H* Glucose 78 Calcium 7.9 L Medications Administered Current Inpatient Medications Alprazolam (Alprazolam 0.5 Mg Tablet) 0.5 mg PO TID MEÑO Stop: 01/17/21 20:59 Last Admin: 12/19/20 08:02 Dose: Not Given Documented by: Amitriptyline HCl (Amitriptyline Hcl 100 Mg Tab) 100 mg PO HS MEÑO Stop: 01/17/21 20:59 Last Admin: 12/18/20 20:12 Dose: 100 mg Documented by: Aspirin (Aspirin 81 Mg Ectab) 81 mg PO QAM MEÑO Stop: 01/18/21 08:59 Last Admin: 12/19/20 08:01 Dose: 81 mg Documented by: Carvedilol (Carvedilol 25 Mg Tab) 25 mg PO BID MEÑO Stop: 01/17/21 20:59 Last Admin: 12/19/20 08:02 Dose: 25 mg Documented by: Cinacalcet (Cinacalcet Hcl 30 Mg Tab) 30 mg PO DAILY MEÑO Stop: 01/18/21 08:59 Last Admin: 12/19/20 08:01 Dose: 30 mg Documented by: Clonidine HCl (Clonidine Hcl 0.1 Mg Tab) 0.3 mg PO Q8 MEÑO Stop: 01/17/21 21:59 Last Admin: 12/19/20 05:55 Dose: 0.3 mg Documented by: Gabapentin (Gabapentin 100 Mg Cap) 100 mg PO HS [facility] Stop: 01/17/21 20:59 Last Admin: 12/18/20 20:13 Dose: 100 mg Documented by: Hydralazine HCl (Hydralazine Tab 50 Mg Tab) 50 mg PO BID MEÑO Stop: 01/17/21 20:59 Last Admin: 12/19/20 08:01 Dose: 50 mg Documented by: Hydromorphone HCl (Hydromorphone Inj 0.5 Mg/0.5 Ml Syr) 0.5 mg IV Q4H PRN PRN Reason: Pain Stop: 01/01/21 14:33 Last Admin: 12/19/20 13:21 Dose: 0.5 mg Documented by: Heparin Sodium/Dextrose (Heparin Sodium/Dextrose) 25,000 units in 500 mls @ 18 mls/hr IV .Q24H MEÑO; Protocol Stop: 01/17/21 12:45 Last Titration: 12/19/20 07:06 Dose: 900 units/hr, 18 mls/hr Documented by: Sodium Chloride (Nss 1000ml) 1,000 mls @ 0 mls/hr IV .Q0M PRN PRN Reason: For Hemodialysis Use ONLY Stop: 12/19/20 17:01 Levothyroxine Sodium (Levothyroxine Sodium 50 Mcg Tablet) 50 mcg PO DAILYBB [facility] Stop: 01/18/21 06:29 Last Admin: 12/19/20 05:55 Dose: 50 mcg Documented by: Metoclopramide HCl (Metoclopramide Hcl 5 Mg Tablet) 5 mg PO TID [facility] Stop: 01/17/21 20:59 Last Admin: 12/19/20 08:02 Dose: 5 mg Documented by: Miscellaneous (Sucroferric Oxyhydroxide [Velphoro]: Order Awaiting Action) 1 ea N/A QS [facility] Stop: 01/17/21 15:59 Last Admin: 12/19/20 08:48 Dose: Not Given Documented by: Pantoprazole Sodium (Pantoprazole 40 Mg Tab) 40 mg PO BID [facility] Stop: 01/17/21 20:59 Last Admin: 12/19/20 08:00 Dose: 40 mg Documented by: Sertraline HCl (Sertraline Hcl 100 Mg Tablet) 100 mg PO DAILY [facility] Stop: 01/18/21 08:59 Last Admin: 12/19/20 08:00 Dose: 100 mg Documented by: Sevelamer HCl (Sevelamer Hcl 800 Mg Tablet) 1,600 mg PO TIDM MEÑO Stop: 01/17/21 16:59 Last Admin: 12/19/20 08:00 Dose: 1,600 mg Documented by: Trazodone HCl (Trazodone Hcl 100 Mg Tab) 100 mg PO HS MEÑO Stop: 01/17/21 20:59 Last Admin: 12/18/20 21:54 Dose: 100 mg Documented by: Vitamin D (Cholecalciferol 1,000 Units 25 Mcg Tab) 3,000 units PO QAM MEÑO Stop: 01/18/21 08:59 Last Admin: 12/19/20 08:01 Dose: 3,000 units Documented by:
[2020-12-19 14:42] LABS: Partial Thromboplastin Time 104.6 Seconds (21.0-31.0)
[2020-12-19] MEDS: GABAPENTIN 100 MG CAP PO SCH (20:53)
[2020-12-19] MEDS: traZODone HCL 100 MG TAB PO SCH (20:54)
[2020-12-19] MEDS: AMITRIPTYLINE HCL 100 MG TAB PO SCH (20:54)
[2020-12-19 22:11] LABS: Partial Thromboplastin Ratio 2.2
[2020-12-19 22:36] LABS: Partial Thromboplastin Time 56.7 Seconds (21.0-31.0)
[2020-12-20] MEDS: HYDROmorphone INJ 0.5 MG/0.5 ML SYR IV PRN ×3 (03:14→11:27)
[2020-12-20] MEDS: LEVOTHYROXINE SODIUM 50 MCG TABLET PO SCH (06:06)
[2020-12-20] MEDS: cloNIDine HCL 0.1 MG TAB PO SCH ×3 (06:06→23:03)
[2020-12-20] MEDS: HEPARIN SODIUM/DEXTROSE 25,000 UNITS/500 ML BAG IV SCH ×2 (06:07→15:02)
[2020-12-20 06:34] LABS: Partial Thromboplastin Ratio 1.7
[2020-12-20 06:38] LABS: Hematocrit (blood only) 38.3 % (42-52); Hemoglobin 12.5 g/dL (14.0-18.0); Mean Corpuscular Hemoglobin 31.6 pg (25-34); Mean Corpuscular Hgb Conc 32.6 g/dL (32-36); Mean Corpuscular Volume 96.7 fL (80-100); Mean Platelet Volume 12.5 fL (7.4-10.4); Platelet Count 98 K/uL (130-400); RDW Coefficient of Variation 17.2 % (11.5-14.5); RDW Standard Deviation 60.3 fL (36.4-46.3); Red Blood Count 3.96 M/uL (4.7-6.1); White Blood Count 4.21 K/uL (4.8-10.8)
[2020-12-20 07:10] LABS: Eosinophils # (auto) 0.12 K/uL (0-0.5); Eosinophils % (auto) 2.9 %; Lymphocytes # (auto) 0.91 K/uL (1.2-3.4); Lymphocytes % (auto) 21.6 %; Monocytes # (auto) 0.49 K/uL (0.11-0.59); Monocytes % (auto) 11.6 %; Neutrophils # (auto) 2.69 K/uL (1.4-6.5); Neutrophils % (auto) 63.9 %
[2020-12-20 07:12] LABS: BUN Creatinine Ratio 3.6 (10-20); Calcium 8.7 mg/dl (8.5-10.1); Creatinine Clr Calc Pharmacy 11.2 ml/min; Est GFR (Non-African American) 7.8 ml/min; Potassium 5.1 mmol/L (3.5-5.1)
[2020-12-20] MEDS: ALPRAZolam 0.5 MG TABLET PO SCH ×3 (07:18→20:30)
[2020-12-20] MEDS: ASPIRIN 81 MG ECTAB PO SCH (08:16)
[2020-12-20] MEDS: CHOLECALCIFEROL 1,000 UNITS 25 MCG TAB PO SCH (08:16)
[2020-12-20] MEDS: PANTOprazole 40 MG TAB PO SCH ×2 (08:16→20:31)
[2020-12-20] MEDS: METOCLOPRAMIDE HCL 5 MG TABLET PO SCH ×3 (08:17→20:30)
[2020-12-20] MEDS: CINACALCET HCL 30 MG TAB PO SCH (08:17)
[2020-12-20] MEDS: SEVELAMER HCL 800 MG TABLET PO SCH ×3 (08:17→17:01)
[2020-12-20] MEDS: SERTRALINE HCL 100 MG TABLET PO SCH (08:17)
[2020-12-20] MEDS: carvediloL 25 MG TAB PO SCH (08:21)
[2020-12-20] MEDS: hydrALAZINE TAB 50 MG TAB PO SCH (08:21)
[2020-12-20 08:28] LABS: Hepatitis B Surface Ab Quant 285.94 mIU/mL (>or=10mIU/mL Immune); Hepatitis B Surface Antibody Immune
--- NOTE | 2020-12-20 10:08 | Surgery Progress Note ---
Date of Service December 20, 2020 Assessment & Plan (1) ESRD (end stage renal disease) on dialysis: Pt with L subclavian v thrombus. Upon further questioning, pt states he was evaluated at [facility] about 4-5 months ago and they told him he had this clot which his body had collateralized. States they told him to use it until it failed and then he would require a new AVF creation. L subclavian V DVT is likely chronic at this point. After discussion with Dr Aguirre, recommends pt undergo LUE fistulagram in OR on FRIDAY. IF pt is discharged prior to that time, he can follow up with [facility] in [place] as they are his preferred Vascular Access surgeon. Admission and Anticipated Discharge Date Admission Date: December 18, 2020 Subjective 40 yo m with ESRD on HD, seen in f/u today regarding L subclavian v thrombus and LUE AVF. Pt underwent HD yesterday with elevated venous pressures and slightly decreased flow rate, but was able to run entire treatment. Pt continues to c/o L shoulder pain. No other new complaints Review of Systems Review of Systems: All systems reviewed & are unremarkable except as noted in HPI & below Physical Exam Constitutional: WD/WN, vitals as above Cardiovascular: Extremities: + varicosities (across left chest/shoulder/back) and + AV fistula (LUE with 2 venous aneurysms, +thrill/bruit) Neurologic: moves all extremities; no focal motor deficits and not confused Psychiatric: A+Ox3, euthymic affect Results & Data ([facility]) Vital Signs (Past 12 Hours) Vital Signs Temp Pulse Resp BP Pulse Ox 12/20/20 07:24 94/56 L 12/20/20 07:12 36.7 C 67 18 86/55 L 95 12/20/20 03:04 36.6 C 66 16 104/66 94 12/20/20 00:00 36.8 C 68 18 93/61 L 93
[2020-12-20] MEDS ORDERED: SODIUM CHLORIDE 0.9% 1000ML 1,000 ML IV PRN (11:21)
--- NOTE | 2020-12-20 11:25 | Nephrology Progress Note ---
Date of Service December 20, 2020 Assessment & Plan Admission and Anticipated Discharge Date Admission Date: December 18, 2020 Subjective No new issues. Had dialysis yesterday without any problem. PHYSICAL EXAMINATION: GENERAL: Young white male who is not in any overt respiratory distress at this time. HEENT: Mucous membrane is moist. NECK: Supple. No jugular venous distention. CHEST: Bilaterally clear to auscultation. CARDIOVASCULAR: S1, S2 regular. ABDOMEN: Soft, nontender. EXTREMITIES: Show no edema. SKIN: Shows significant collateral veins present on his anterior chest wall on the left side as well as in the posterior back side as well as around the arm. These are not new. NEUROLOGIC: Awake, alert, oriented x3. Moves all 4 extremities. No focal deficit noted. ASSESSMENT AND PLAN: A 40-year-old male who presented to the hospital cleared from [facility] because of problem with vascular access. I have been consulted for dialysis management. End-stage renal disease: We were able to cannulate his fistula yesterday and run dialysis with QB of 400 without problems yesterday. On detailed questioning with the patient, it appears the patient has had thrombus in his fistula for a long time and has developed significant collateral veins around the fistula. He has already been evaluated by vascular access center in [place] and told that not much can be done for this chronic thrombus in his fistula. However, as of now, the fistula seems to be able to support dialysis through the collaterals despite Chronic thrombus. Further decision about intervention will be done by Dr. Aguirre. Results & Data ([facility]) Vital Signs (Past 12 Hours) Vital Signs Temp Pulse Pulse Resp BP Pulse Ox 12/20/20 07:24 94/56 L 12/20/20 07:12 36.7 C 67 18 86/55 L 95 12/20/20 07:03 65 12/20/20 03:04 36.6 C 66 16 104/66 94 12/20/20 00:00 36.8 C 68 18 93/61 L 93
[2020-12-20] MEDS ORDERED: oxyCODONE/ACETAMINOPHEN 5mg/325mg TAB PO PRN (12:17)
[2020-12-20 13:27] LABS: Partial Thromboplastin Ratio 1.7
[2020-12-20 13:30] LABS: Partial Thromboplastin Time 45.8 Seconds (21.0-31.0)
--- NOTE | 2020-12-20 16:12 | Hospitalist Progress Note ---
Date of Service December 20, 2020 Assessment & Plan (1) Left upper extremity deep vein thrombosis: Left upper extremity deep vein thrombosis ? Chronic given Collaterals Ultrasound: Obstructing left subclavian deep vein thrombosis. Incompletely obstructing thrombus in the fistula Continue IV heparin Plan to transition to Coumadin as able (2) AV fistula occlusion: AV Fistula Occlusion Appreciate vascular surgery input Plan for left upper extremity fistulogram on Friday (3) ESRD (end stage renal disease) on dialysis: End-stage renal disease on hemodialysis H/O failed renal transplant Had HD yesterday Appreciate Nephrology Input HD as per Nephrology (4) HTN (hypertension): BP low Hold hydralazine Decreased carvedilol to 12.5 mg twice daily Decrease clonidine to 0.1 mg 3 times daily Continue medications with holding parameters Hyperkalemia Missed hemodialysis Potassium levels normalized Monitor (5) GERD (gastroesophageal reflux disease): (6) CAD (coronary artery disease): H/O CAD S/P Stents Continue aspirin, carvedilol (7) Kidney transplant failure: Chronic thrombocytopenia Monitor platelet count CODE STATUS Full Code DVT Px: IV heparin (8) Hypoglycemia: Received 10 unit of regular insulin and 1 ampoule of D50 to control hyperkalemia Has a profound hypoglycemia with a blood sugar of 22 with profuse sweating and abnormal jerking movements of the extremities At that time his blood pressure was noted to be very high with a systolic more than 200 A code purple was called and that was managed appropriately with intravenous D50 and also use of Nitropaste to control blood pressure Patient did not have any loss of consciousness and all of his symptoms resolved Admission and Anticipated Discharge Date Admission Date: December 18, 2020 Subjective Patient is seen and examined at bedside Complains of left upper extremity pain radiating to shoulder Denies chest pain, dyspnea, dizziness, nausea, abdominal pain On IV heparin Denies any bleeding issues Review of Systems Review of Systems: All systems reviewed & are unremarkable except as noted in HPI & below Physical Exam Physical Exam: Physical Exam: Vitals signs as noted above General Appearance:Moderately built and nourished, no apparent distress Head: normocephalic, Atraumatic Eyes: normal inspection, EOMI Neck: supple, Trachea midline Respiratory/Chest: Normal breath sounds, CTA Cardiovascular: S1, S2, No murmur Abdomen/GI:Soft, Non tender, Bowel sounds present Extremities/Musculoskeletal:normal inspection, no edema, LUE AV fistula, tender Neurologic/Psych:AAOX3, grossly no focal neurological deficits Skin: normal color, warm Results & Data Results & Data ([facility]) Vital Signs (Past 12 Hours) Vital Signs Temp Pulse Pulse Resp BP BP Pulse Ox 12/20/20 15:40 65 94/49 L 12/20/20 15:20 66 84/51 L 12/20/20 15:00 70 117/72 12/20/20 14:40 68 90/69 L 12/20/20 14:20 71 88/60 L 12/20/20 14:00 68 97/63 L 12/20/20 13:40 68 105/66 12/20/20 13:20 66 87/64 L 12/20/20 13:00 36.8 C 69 12/20/20 11:24 36.8 C 65 18 98/66 L 95 12/20/20 07:24 94/56 L 12/20/20 07:12 36.7 C 67 18 86/55 L 95 12/20/20 07:03 65 Laboratory Results Short CBC 12/20/20 Range/Units 05:50 WBC 4.21 L (4.8-10.8) K/uL Hgb 12.5 L (14.0-18.0) g/dL Hct 38.3 L (42-52) % Plt Count 98 L (130-400) K/uL BMP 12/20/20 05:50 Sodium 135 L Potassium 5.1 Chloride 101 Carbon Dioxide 29 BUN 28 H D Creatinine 7.74 H* D Glucose 90 Calcium 8.7
[2020-12-20] MEDS ORDERED: LORATADINE 10 MG TAB PO ONE (19:26)
[2020-12-20] MEDS ORDERED: ACETAMINOPHEN 325 MG TAB PO PRN (19:27)
[2020-12-20] MEDS: ACETAMINOPHEN 325 MG TAB PO PRN (20:29)
[2020-12-20] MEDS: carvediloL 12.5 MG TAB PO SCH (20:30)
[2020-12-20] MEDS: GABAPENTIN 100 MG CAP PO SCH (20:31)
[2020-12-20] MEDS: traZODone HCL 100 MG TAB PO SCH (20:32)
[2020-12-20] MEDS: AMITRIPTYLINE HCL 100 MG TAB PO SCH (20:33)
[2020-12-20 20:41] LABS: Partial Thromboplastin Ratio 2.1
[2020-12-20 21:06] LABS: Partial Thromboplastin Time 55.5 Seconds (21.0-31.0)
[2020-12-20] MEDS ORDERED: HYDROmorphone INJ 1 MG/ML SYRINGE IV STA (22:25)
[2020-12-20] MEDS: PROMETHAZINE HCL 12.5 MG in SODIUM CHLORIDE 0.9% 50 ML IV PRN (23:47)
[2020-12-21] MEDS: cloNIDine HCL 0.1 MG TAB PO SCH ×3 (05:21→21:02)
[2020-12-21] MEDS: LEVOTHYROXINE SODIUM 50 MCG TABLET PO SCH (05:21)
[2020-12-21 06:50] LABS: Partial Thromboplastin Ratio 2.1
[2020-12-21 06:54] LABS: BUN Creatinine Ratio 3.8 (10-20); Calcium 8.5 mg/dl (8.5-10.1); Creatinine Clr Calc Pharmacy 13.9 ml/min; Est GFR (African American) 11.7 ml/min; Est GFR (Non-African American) 10.1 ml/min; Potassium 4.5 mmol/L (3.5-5.1)
[2020-12-21 06:55] LABS: Partial Thromboplastin Time 54.1 Seconds (21.0-31.0)
[2020-12-21] MEDS: CHOLECALCIFEROL 1,000 UNITS 25 MCG TAB PO SCH (08:48)
[2020-12-21] MEDS: ASPIRIN 81 MG ECTAB PO SCH (08:48)
[2020-12-21] MEDS: carvediloL 12.5 MG TAB PO SCH ×2 (08:48→20:59)
[2020-12-21] MEDS: SERTRALINE HCL 100 MG TABLET PO SCH (08:48)
[2020-12-21] MEDS: SEVELAMER HCL 800 MG TABLET PO SCH ×3 (08:48→18:26)
[2020-12-21] MEDS: PANTOprazole 40 MG TAB PO SCH ×2 (08:48→21:01)
[2020-12-21] MEDS: CINACALCET HCL 30 MG TAB PO SCH (08:48)
[2020-12-21] MEDS: METOCLOPRAMIDE HCL 5 MG TABLET PO SCH ×3 (08:48→21:00)
[2020-12-21] MEDS: ALPRAZolam 0.5 MG TABLET PO SCH ×3 (08:51→20:55)
[2020-12-21] MEDS: ACETAMINOPHEN 325 MG TAB PO PRN (08:51)
[2020-12-21] MEDS ORDERED: WARFARIN SOD 10 MG TAB PO ONE (13:14)
[2020-12-21] MEDS: HEPARIN SODIUM/DEXTROSE 25,000 UNITS/500 ML BAG IV SCH (13:53)
[2020-12-21 14:02] LABS: INR 1.1 (0.9-1.1); Prothrombin Time 11.4 Seconds (9.0-12.0)
--- NOTE | 2020-12-21 14:36 | Communication Note ---
Date of Service: December 21, 2020 Patient for fistulogram with possible intervention tomorrow.
[2020-12-21] MEDS ORDERED: MoRPHine SULFATE 2 MG/ML CARP IV ONE (15:02)
--- NOTE | 2020-12-21 17:33 | Hospitalist Progress Note ---
Date of Service December 21, 2020 Assessment & Plan (1) Left upper extremity deep vein thrombosis: Left upper extremity deep vein thrombosis ? Chronic given Collaterals Ultrasound: Obstructing left subclavian deep vein thrombosis. Incompletely obstructing thrombus in the fistula Continue IV heparin Plan to transition to Coumadin as able Plan for fistulogram tomorrow N.p.o. after midnight (2) AV fistula occlusion: AV Fistula Occlusion Appreciate vascular surgery input Plan for left upper extremity fistulogram tmw (3) ESRD (end stage renal disease) on dialysis: End-stage renal disease on hemodialysis H/O failed renal transplant Had HD yesterday Appreciate Nephrology Input HD as per Nephrology (4) HTN (hypertension): BP low Hold hydralazine Decreased carvedilol to 12.5 mg twice daily Decrease clonidine to 0.1 mg 3 times daily Continue medications with holding parameters Needs follow-up with nephrology upon discharge Hyperkalemia Missed hemodialysis Potassium levels normalized Monitor (5) GERD (gastroesophageal reflux disease): (6) CAD (coronary artery disease): H/O CAD S/P Stents Continue aspirin, carvedilol (7) Kidney transplant failure: Chronic thrombocytopenia Monitor platelet count CODE STATUS Full Code DVT Px: IV heparin (8) Hypoglycemia: As per Prior hospitalist Received 10 unit of regular insulin and 1 ampoule of D50 to control hyperkalemia Has a profound hypoglycemia with a blood sugar of 22 with profuse sweating and abnormal jerking movements of the extremities At that time his blood pressure was noted to be very high with a systolic more than 200 A code purple was called and that was managed appropriately with intravenous D50 and also use of Nitropaste to control blood pressure Patient did not have any loss of consciousness and all of his symptoms resolved Admission and Anticipated Discharge Date Admission Date: December 18, 2020 Subjective Patient is seen and examined at bedside Left upper extremity pain is controlled No new complaints Denies chest pain, dyspnea, dizziness, nausea, abdominal pain On IV heparin Planned for fistulogram tmw Review of Systems Review of Systems: All systems reviewed & are unremarkable except as noted in HPI & below Physical Exam Physical Exam: Physical Exam: Vitals signs as noted above General Appearance:Moderately built and nourished, no apparent distress Head: normocephalic, Atraumatic Eyes: normal inspection, EOMI Neck: supple, Trachea midline Respiratory/Chest: Normal breath sounds, CTA Cardiovascular: S1, S2, No murmur Abdomen/GI:Soft, Non tender, Bowel sounds present Extremities/Musculoskeletal:normal inspection, no edema, LUE AV fistula, tender Neurologic/Psych:AAOX3, grossly no focal neurological deficits Skin: normal color, warm Results & Data Results & Data ([facility]) Vital Signs (Past 12 Hours) Vital Signs Temp Pulse Resp BP Pulse Ox 12/21/20 15:56 36.8 C 69 16 109/72 95 12/21/20 08:05 36.6 C 73 16 103/64 93 Laboratory Results [facility] 12/21/20 05:39 Sodium 135 L Potassium 4.5 Chloride 101 Carbon Dioxide 29 BUN 24 H Creatinine 6.24 H* D Glucose 81 Calcium 8.5
[2020-12-21] MEDS ORDERED: traMADol HCL 50 MG TABLET PO PRN (20:33)
[2020-12-21] MEDS: AMITRIPTYLINE HCL 100 MG TAB PO SCH (20:56)
[2020-12-21] MEDS: GABAPENTIN 100 MG CAP PO SCH (21:00)
[2020-12-21] MEDS: traZODone HCL 100 MG TAB PO SCH (21:01)
[2020-12-21] MEDS: oxyCODONE HCL IR 5 MG TAB (IMMEDIATE RELEASE) PO PRN (21:09)
[2020-12-21] MEDS: PROMETHAZINE HCL 12.5 MG in SODIUM CHLORIDE 0.9% 50 ML IV PRN (21:10)
[2020-12-22] MEDS ORDERED: ceFAZolin 1000MG 1,000 MG/7.5 ML SYR IV SCH (06:00)
[2020-12-22] MEDS: cloNIDine HCL 0.1 MG TAB PO SCH ×3 (06:01→20:39)
[2020-12-22] MEDS: LEVOTHYROXINE SODIUM 50 MCG TABLET PO SCH (06:01)
[2020-12-22 06:10] LABS: Hematocrit (blood only) 34.8 % (42-52); Hemoglobin 11.5 g/dL (14.0-18.0); Mean Corpuscular Volume 96.9 fL (80-100); RDW Coefficient of Variation 16.7 % (11.5-14.5); RDW Standard Deviation 58.9 fL (36.4-46.3); Red Blood Count 3.59 M/uL (4.7-6.1); White Blood Count 4.02 K/uL (4.8-10.8)
[2020-12-22 06:34] LABS: INR 1.3 (0.9-1.1); Partial Thromboplastin Ratio 2.8; Prothrombin Time 12.7 Seconds (9.0-12.0)
[2020-12-22 06:44] LABS: Mean Platelet Volume 11.7 fL (7.4-10.4); Platelet Count 83 K/uL (130-400)
[2020-12-22 06:51] LABS: Partial Thromboplastin Time 72.4 Seconds (21.0-31.0)
[2020-12-22] MEDS ORDERED: ceFAZolin 1000MG 1,000 MG/7.5 ML SYR IV ONE (07:00)
[2020-12-22] MEDS ORDERED: SODIUM CHLORIDE 0.9% 1000ML 1,000 ML IV PRN (07:00)
[2020-12-22 07:21] LABS: BUN Creatinine Ratio 3.7 (10-20); Calcium 7.7 mg/dl (8.5-10.1); Est GFR (African American) 7.9 ml/min; Est GFR (Non-African American) 6.8 ml/min; Potassium 5.2 mmol/L (3.5-5.1)
[2020-12-22] MEDS: ACETAMINOPHEN 325 MG TAB PO PRN (07:57)
[2020-12-22] MEDS: ALPRAZolam 0.5 MG TABLET PO SCH ×3 (07:58→20:39)
[2020-12-22] MEDS: PANTOprazole 40 MG TAB PO SCH ×2 (08:00→20:39)
[2020-12-22] MEDS: carvediloL 12.5 MG TAB PO SCH ×2 (08:00→20:39)
[2020-12-22] MEDS: ASPIRIN 81 MG ECTAB PO SCH (08:02)
[2020-12-22] MEDS: CHOLECALCIFEROL 1,000 UNITS 25 MCG TAB PO SCH (08:02)
[2020-12-22] MEDS: SERTRALINE HCL 100 MG TABLET PO SCH (08:02)
[2020-12-22] MEDS: CINACALCET HCL 30 MG TAB PO SCH (08:03)
[2020-12-22] MEDS: SEVELAMER HCL 800 MG TABLET PO SCH ×3 (08:03→19:42)
[2020-12-22] MEDS: METOCLOPRAMIDE HCL 5 MG TABLET PO SCH ×3 (08:04→20:39)
[2020-12-22] MEDS: oxyCODONE HCL IR 5 MG TAB (IMMEDIATE RELEASE) PO PRN ×2 (08:10→20:43)
--- NOTE | 2020-12-22 09:11 | History & Physical Bridge Note ---
Date of Service December 22, 2020 History & Physical Bridge Note I have examined the patient, reviewed the History & Physical and in the interval since the performance of the History & Physical I have noted the following changes of clinical significance: no changes noted Patient for fistulogram with possible intervention. I have discussed the risks options and benefits of the procedure with the patient. The patient understands the risks options and benefits and agrees to the procedure.
[2020-12-22] MEDS ORDERED: MIDAZOLAM HCL 1 MG/ML 2ML VIAL ONE (11:35)
[2020-12-22] MEDS ORDERED: fentaNYL citrate 100 MCG/2 ML VIAL ONE (11:35)
[2020-12-22] MEDS ORDERED: HEPARIN SOD (PORCINE) 1000 UNIT/ML ONE (11:35)
--- NOTE | 2020-12-22 11:53 | Pre Anesthesia Assessment ---
Date of Service December 22, 2020 Pre Sedation Assessment Vital Signs Temp Pulse Resp BP Pulse Ox 12/22/20 10:30 36.1 C L 67 20 116/83 94 12/22/20 07:32 36.6 C 69 18 122/85 96 12/21/20 22:23 36.7 C 73 16 119/79 95 12/21/20 15:56 36.8 C 69 16 109/72 95 Cardiovascular RRR, no murmur, no edema Respiratory normal respiratory effort, lungs clear to auscultation Pre-Sedation Airway Assessment Smoking Status: Former smoker Hx Sleep Apnea: No Short, Thick Neck: No Thyromental Distance: > or= 3.5 Finger Breadths Oral Cavity: + WNL Mallampati Class: I ASA: ASA3 NPO Status Date of Last Intake of Fluids: 12/21/20 Time of Last Intake of Fluids: 21:00 Date of Last Intake of Solid Food: 12/21/20 Time of Last Intake of Solid Foods: 17:30 Procedure Planning Contraindications for Sedation: none Current Medications Reviewed: Yes Notes The planned sedation has been discussed with the patient. Informed Consent was obtained. I have identified the patient, determined the appropriateness of sedation and have assessed the patient immediately prior to the procedure. All medicine(s) and interventions are by my order.
[2020-12-22] MEDS ORDERED: LIDOCAINE 1% LOCAL 20 ML VIAL IV PRN (12:39)
[2020-12-22] MEDS ORDERED: OPTIRAY 300 IV ONE (12:40)
--- NOTE | 2020-12-22 12:54 | Post Anesthesia Assessment ---
Date of Service December 22, 2020 Post Sedation Assessment Vital Signs Temp Pulse Pulse Resp BP Pulse Ox 12/22/20 12:48 65 20 123/87 100 12/22/20 12:40 69 20 111/88 100 12/22/20 12:35 69 20 123/89 100 12/22/20 12:30 67 20 126/86 100 12/22/20 12:25 67 20 126/99 100 12/22/20 12:20 67 20 120/88 100 12/22/20 12:15 61 20 121/87 100 12/22/20 12:10 61 20 129/94 100 12/22/20 12:08 61 20 118/93 100 12/22/20 12:03 64 20 125/95 99 12/22/20 11:55 60 20 130/93 99 12/22/20 10:30 36.1 C L 67 20 116/83 94 12/22/20 07:32 36.6 C 69 18 122/85 96 12/21/20 22:23 36.7 C 73 16 119/79 95 12/21/20 15:56 36.8 C 69 16 109/72 95 Recovery Score Activity: Moves 4 extremities Respiration: Deep Breath/Cough Circulation: +/-20% PreAnes Value Consciousness: Fully Awake Oxygen Saturation: > 92% On Room Air Post Anesthesia Score: 10 Discharge Sedation Level of Care: Fast Track Phase II Post Sedation Plan On clinical assessment, the patient appears to have tolerated the sedation without complications. Patient is recovering as anticipated. Patient will continue to be monitored by nursing and may be discharged when sedation discharge criteria are met per below protocol. Upon Completions of procedure up to 15 minutes continue every 5 minute vital signs and the P.A.R. score; then discharge to a Phase I or Fast Track to Phase II per the following guidelines: * Discharge Patient to appropriate Phase II area if PAR is 8 or greater or return to pre- procedure baseline. The post - procedure orders will be as directed. * If PAR score is less than 8 or not return to pre-procedure baseline then patient will follow Phase I monitoring till PAR is reached for Phase II. The Phase I may be done in procedure room or may call to secure a Phase I area. * If naloxone or flumazenil are used for reversal, hold in Phase I for continued monitoring from when last reversal dose was given for a minimum of 60 minutes or longer pending the nurse and/or physician discretion of patient condition before discharge to Phase II. Please call the Sedation Physician to re-evaluate and complete post-note for discharge to Phase II area. Do NOT discharge from procedure sedation or Phase 1 until post- sedation evaluation note is complete by procedure /sedation MD Sedation Discharge Instructions to be given to the patient at discharge to home.
--- NOTE | 2020-12-22 12:58 | Operative Report ---
Post Operative Report Pre & Post Diagnosis Operation Date: 12/22/20 11:10 Pre-Op Diagnosis: Malfunctioning Fistula Post-Op Diagnosis: Malfunctioning Fistula I identified the patient and participated in the time-out.: Yes Procedure Operation Date: 12/22/20 11:10 Actual Procedures p Fistulogram, Percutaneous Transluminal Angioplasty Peripheral Venous, Moderate Sedation [id number](Left) - Ziggy Aguirre MD Surgeon Ziggy Aguirre MD Head Trimmer None Estimated Blood Loss 3 Findings Consistent with Post-Op Diagnosis Specimens None Anesthesia Type RN Sedation Complications none Disposition Accompanied Patient To Recovery: No Disposition: Recovery Room Indications This is a 40-year-old gentleman who has a fistula his left arm which is having slow flow volumes. 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 Fistulogram was recommended to evaluate for any further new stenoses. I have discussed the risks options and benefits of the procedure with the patient. The patient understands the risks options and benefits and agrees to the procedure. Description of Procedure The patient was taken to the angiogram suite and placed in the supine position. The left arm was then prepped and draped in a sterile manner. The patient was identified and a timeout performed. Local anesthetic was administered and a percutaneous puncture was then made of the proximal portion of the left arm AV fistula using micropuncture technique. Micropuncture wire and sheath were then inserted. A fistulogram was then performed. Ultrasound showed a widely patent proximal fistula with 2 venous aneurysms. There is a moderate stenosis present just before the stent in the distal part of the fistula in the upper arm. Beyond that the fistula is widely patent up to the subclavian vein where it was appear to be chronically occluded with a large long stent present. There is numerous collaterals in the left arm which filled the internal jugular vein. Internal jugular vein was occluded in the chest by the stent. The internal jugular on the left drain to the right internal jugular vein. A wire was then passed up through the stenotic area. The sheath was exchanged for a 6 [place] sheath. We did try to pass a wire through the occlusion in hopes of finding a small lumen present. This was unsuccessful. We therefore ballooned the stenosis with a 8 x 4 [place] balloon. This showed no residual stenosis post dilatation. There is a much better thrill in the fistula proximally at the end of the dilatation of the fistula. The sheath was then pulled and pressure was applied. Adequate hemostasis was obtained. The patient left the angiogram suite in good condition and tolerated the procedure well. I attest to the content of the Intraoperative Record and any orders documented therein. Any exceptions are noted below.
[2020-12-22 14:36] LABS: Partial Thromboplastin Ratio 2.8
[2020-12-22 14:52] LABS: Partial Thromboplastin Time 73.5 Seconds (21.0-31.0)
[2020-12-22] MEDS ORDERED: WARFARIN SOD 10 MG TAB PO ONE (16:00)
--- NOTE | 2020-12-22 16:52 | Hospitalist Progress Note ---
Date of Service December 22, 2020 Assessment & Plan (1) Left upper extremity deep vein thrombosis: Left upper extremity deep vein thrombosis ? Chronic given Collaterals Ultrasound: Obstructing left subclavian deep vein thrombosis. 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 S/P fistulogram, percutaneous transluminal angioplasty Appreciate vascular surgery input If patient further has issues with AV fistula, patient prefers to follow-up with his vascular surgeon in [place] (3) ESRD (end stage renal disease) on dialysis: End-stage renal disease on hemodialysis H/O failed renal transplant Appreciate Nephrology Input HD as per Nephrology (4) HTN (hypertension): BP low Hold hydralazine Decreased carvedilol to 12.5 mg twice daily Decreased clonidine to 0.1 mg 3 times daily Continue medications with holding parameters Needs follow-up with nephrology upon discharge BP stable Hyperkalemia Missed hemodialysis Potassium levels normalized Monitor (5) GERD (gastroesophageal reflux disease): (6) CAD (coronary artery disease): H/O CAD S/P Stents Continue aspirin, carvedilol (7) Kidney transplant failure: Chronic thrombocytopenia Monitor platelet count CODE STATUS Full Code DVT Px: IV heparin, Coumadin (8) Hypoglycemia: As per Prior hospitalist Received 10 unit of regular insulin and 1 ampoule of D50 to control hyperkalemia Has a profound hypoglycemia with a blood sugar of 22 with profuse sweating and abnormal jerking movements of the extremities At that time his blood pressure was noted to be very high with a systolic more than 200 A code purple was called and that was managed appropriately with intravenous D50 and also use of Nitropaste to control blood pressure Patient did not have any loss of consciousness and all of his symptoms resolved Admission and Anticipated Discharge Date Admission Date: December 18, 2020 Subjective Patient is seen and examined at bedside States feeling well this morning Denies any left upper extremity fistula pain Had fistulogram with angioplasty earlier today Discussed with vascular surgery today Denies chest pain, dyspnea, dizziness, nausea, abdominal pain Review of Systems Review of Systems: All systems reviewed & are unremarkable except as noted in HPI & below Physical Exam Physical Exam: Physical Exam: Vitals signs as noted above General Appearance:Moderately built and nourished, no apparent distress Head: normocephalic, Atraumatic Eyes: normal inspection, EOMI Neck: supple, Trachea midline Respiratory/Chest: Normal breath sounds, CTA Cardiovascular: S1, S2, No murmur Abdomen/GI:Soft, Non tender, Bowel sounds present Extremities/Musculoskeletal:normal inspection, no edema, LUE AV fistula Neurologic/Psych:AAOX3, grossly no focal neurological deficits Skin: normal color, warm Results & Data Results & Data ([facility]) Vital Signs (Past 12 Hours) Vital Signs Temp Pulse Pulse Pulse Resp BP BP 12/22/20 16:20 49 L 110/83 12/22/20 16:00 66 119/85 12/22/20 15:40 64 117/89 12/22/20 15:20 66 123/92 12/22/20 15:07 65 117/92 12/22/20 15:00 36.7 C 68 12/22/20 14:24 36.7 C 70 18 154/107 H 12/22/20 13:55 36.5 C 69 16 128/94 12/22/20 12:48 65 20 123/87 12/22/20 12:40 69 20 111/88 12/22/20 12:35 69 20 123/89 12/22/20 12:30 67 20 126/86 12/22/20 12:25 67 20 126/99 12/22/20 12:20 67 20 120/88 12/22/20 12:15 61 20 121/87 12/22/20 12:10 61 20 129/94 12/22/20 12:08 61 20 118/93 12/22/20 12:03 64 20 125/95 12/22/20 11:55 60 20 130/93 12/22/20 10:30 36.1 C L 67 20 116/83 12/22/20 07:32 36.6 C 69 18 122/85 Pulse Ox 12/22/20 16:20 12/22/20 16:00 12/22/20 15:40 12/22/20 15:20 12/22/20 15:07 12/22/20 15:00 12/22/20 14:24 98 12/22/20 13:55 96 12/22/20 12:48 100 12/22/20 12:40 100 12/22/20 12:35 100 12/22/20 12:30 100 12/22/20 12:25 100 12/22/20 12:20 100 12/22/20 12:15 100 12/22/20 12:10 100 12/22/20 12:08 100 12/22/20 12:03 99 12/22/20 11:55 99 12/22/20 10:30 94 12/22/20 07:32 96 Laboratory Results Short CBC 12/22/20 Range/Units 05:51 WBC 4.02 L (4.8-10.8) K/uL Hgb 11.5 L (14.0-18.0) g/dL Hct 34.8 L (42-52) % Plt Count 83 L (130-400) K/uL BMP 12/22/20 05:51 Sodium 134 L Potassium 5.2 H D Chloride 102 Carbon Dioxide 23 BUN 33 H Creatinine 8.68 H* D Glucose 85 Calcium 7.7 L
[2020-12-22] MEDS: traZODone HCL 100 MG TAB PO SCH (20:39)
[2020-12-22] MEDS: GABAPENTIN 100 MG CAP PO SCH (20:39)
[2020-12-22] MEDS: AMITRIPTYLINE HCL 100 MG TAB PO SCH (20:39)
[2020-12-22] MEDS: HEPARIN SODIUM/DEXTROSE 25,000 UNITS/500 ML BAG IV SCH (20:42)
[2020-12-22 22:04] LABS: Partial Thromboplastin Ratio 2.6
[2020-12-22 22:14] LABS: Partial Thromboplastin Time 68.6 Seconds (21.0-31.0)
[2020-12-23 05:02] LABS: Hematocrit (blood only) 35.8 % (42-52); Hemoglobin 11.9 g/dL (14.0-18.0); Mean Corpuscular Hgb Conc 33.2 g/dL (32-36); Mean Corpuscular Volume 96.2 fL (80-100); RDW Coefficient of Variation 16.7 % (11.5-14.5); RDW Standard Deviation 58.5 fL (36.4-46.3); Red Blood Count 3.72 M/uL (4.7-6.1); White Blood Count 4.82 K/uL (4.8-10.8)
[2020-12-23 05:25] LABS: INR 2.4 (0.9-1.1); Mean Platelet Volume 11.4 fL (7.4-10.4); Partial Thromboplastin Ratio 2.3; Platelet Count 84 K/uL (130-400)
[2020-12-23 05:27] LABS: Partial Thromboplastin Time 59.2 Seconds (21.0-31.0)
[2020-12-23 05:34] LABS: Calcium 7.4 mg/dl (8.5-10.1); Creatinine Clr Calc Pharmacy 16.5 ml/min; Est GFR (African American) 14.4 ml/min; Est GFR (Non-African American) 12.4 ml/min; Magnesium 2.2 mg/dl (1.8-2.4); Potassium 4.7 mmol/L (3.5-5.1)
[2020-12-23] MEDS: LEVOTHYROXINE SODIUM 50 MCG TABLET PO SCH (05:34)
[2020-12-23] MEDS: cloNIDine HCL 0.1 MG TAB PO SCH ×3 (05:34→20:26)
[2020-12-23] MEDS: oxyCODONE HCL IR 5 MG TAB (IMMEDIATE RELEASE) PO PRN ×2 (08:38→20:30)
[2020-12-23] MEDS: SEVELAMER HCL 800 MG TABLET PO SCH ×3 (08:38→17:35)
[2020-12-23] MEDS: ALPRAZolam 0.5 MG TABLET PO SCH ×3 (08:40→20:25)
[2020-12-23] MEDS: ASPIRIN 81 MG ECTAB PO SCH (08:40)
[2020-12-23] MEDS: PANTOprazole 40 MG TAB PO SCH ×2 (08:41→20:25)
[2020-12-23] MEDS: SERTRALINE HCL 100 MG TABLET PO SCH (08:41)
[2020-12-23] MEDS: METOCLOPRAMIDE HCL 5 MG TABLET PO SCH ×3 (08:41→20:25)
[2020-12-23] MEDS: CINACALCET HCL 30 MG TAB PO SCH (08:41)
[2020-12-23] MEDS: carvediloL 12.5 MG TAB PO SCH ×2 (08:42→20:25)
[2020-12-23] MEDS: CHOLECALCIFEROL 1,000 UNITS 25 MCG TAB PO SCH (08:42)
--- NOTE | 2020-12-23 10:08 | Nephrology Progress Note ---
Date of Service December 23, 2020 Assessment & Plan (1) ESRD (end stage renal disease) on dialysis: Patient with ESRD on dialysis Friday at [place]. He was admitted with chest pain and chronic clot in his left upper arm AV fistula. Patient had declotting yesterday. Patient had dialysis yesterday as well. He is now on heparin drip. Electrolytes are stable no signs of volume overload. Next dialysis will be on Friday. Admission and Anticipated Discharge Date Admission Date: December 18, 2020 Subjective Seen in follow-up for ESRD. Patient had dialysis yesterday. He also had fistulogram and removal of clot from his fistula. He is on heparin drip. No shortness of breath or leg swelling. Review of Systems Review of Systems: All systems reviewed & are unremarkable except as noted in HPI & below Physical Exam Physical Exam: General exam: Appears comfortable, no acute distress HEENT: Pupils are equal and reactive to light Neck: No JVD, neck is supple trachea is midline Respiratory system: Clear breath sounds bilaterally. Gastrointestinal: Abdomen is soft, non distended, non tender, bowel sounds are present CVS: Regular rate and rhythm. No murmurs, rubs or gallops Musculoskeletal: No joint or muscle tenderness Extremities: Non tender, no edema, peripheral pulses are present Neuro: Oriented, no tremors, no focal neurological deficits Skin: No rashes Access: Left upper arm AV fistula with good bruit Results & Data ([facility]) Vital Signs (Past 12 Hours) Vital Signs Temp Pulse Resp BP Pulse Ox 12/23/20 06:40 36.8 C 80 16 143/97 H 96 12/23/20 03:51 36.8 C 77 16 114/75 93 12/22/20 23:37 36.8 C 73 16 112/78 94 Laboratory Results 12/23/20 04:18 12/23/20 04:18 WBC 4.82 RBC 3.72 L MCV 96.2 MCH 32.0 MCHC 33.2 RDW Std Deviation 58.5 H RDW Coeff of [place]ito 16.7 H Plt Count 84 L MPV 11.4 H
[2020-12-23] MEDS ORDERED: WARFARIN SOD 3 MG TAB PO SCH (16:00)
--- NOTE | 2020-12-23 18:24 | Hospitalist Progress Note ---
Date of Service December 23, 2020 Assessment & Plan (1) Left upper extremity deep vein thrombosis: Left upper extremity deep vein thrombosis ? Chronic given Collaterals Ultrasound: Obstructing left subclavian deep vein thrombosis. 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 S/P fistulogram, percutaneous transluminal angioplasty Appreciate vascular surgery input If patient further has issues with AV fistula, patient prefers to follow-up with his vascular surgeon in [place] (3) ESRD (end stage renal disease) on dialysis: End-stage renal disease on hemodialysis H/O failed renal transplant Appreciate Nephrology Input HD as per Nephrology (4) HTN (hypertension): BP Variable Hold hydralazine Decreased carvedilol to 12.5 mg twice daily Decreased clonidine to 0.2 mg 3 times daily Continue medications with holding parameters Needs follow-up with nephrology upon discharge Hyperkalemia Missed hemodialysis prior to admission Potassium levels normalized Monitor (5) GERD (gastroesophageal reflux disease): (6) CAD (coronary artery disease): H/O CAD S/P Stents Continue aspirin, carvedilol (7) Kidney transplant failure: Chronic thrombocytopenia Monitor platelet count CODE STATUS Full Code DVT Px: IV heparin, Coumadin (8) Hypoglycemia: As per Prior hospitalist Received 10 unit of regular insulin and 1 ampoule of D50 to control hyperkalemia Has a profound hypoglycemia with a blood sugar of 22 with profuse sweating and abnormal jerking movements of the extremities At that time his blood pressure was noted to be very high with a systolic more than 200 A code jesus was called and that was managed appropriately with intravenous D50 and also use of Nitropaste to control blood pressure Patient did not have any loss of consciousness and all of his symptoms resolved Admission and Anticipated Discharge Date Admission Date: December 18, 2020 Subjective Patient is seen and examined at bedside Doing well today No new complaints Denies any fistula pain Denies chest pain, dyspnea, dizziness, nausea, abdominal pain Review of Systems Review of Systems: All systems reviewed & are unremarkable except as noted in HPI & below Physical Exam Physical Exam: Physical Exam: Vitals signs as noted above General Appearance:Moderately built and nourished, no apparent distress Head: normocephalic, Atraumatic Eyes: normal inspection, EOMI Neck: supple, Trachea midline Respiratory/Chest: Normal breath sounds, CTA Cardiovascular: S1, S2, No murmur Abdomen/GI:Soft, Non tender, Bowel sounds present Extremities/Musculoskeletal:normal inspection, no edema, LUE AV fistula Neurologic/Psych:AAOX3, grossly no focal neurological deficits Skin: normal color, warm Results & Data Results & Data ([facility]) Vital Signs (Past 12 Hours) Vital Signs Temp Pulse Pulse Resp BP Pulse Ox 12/23/20 16:00 36.9 C 76 18 109/74 95 12/23/20 06:40 36.8 C 80 16 143/97 H 96 Laboratory Results Short CBC 12/23/20 Range/Units 04:18 WBC 4.82 (4.8-10.8) K/uL Hgb 11.9 L (14.0-18.0) g/dL Hct 35.8 L (42-52) % Plt Count 84 L (130-400) K/uL BMP 12/23/20 04:18 Sodium 137 Potassium 4.7 Chloride 104 Carbon Dioxide 27 BUN 16 D Creatinine 5.25 H* D Glucose 89 Calcium 7.4 L
[2020-12-23] MEDS: GABAPENTIN 100 MG CAP PO SCH (20:25)
[2020-12-23] MEDS: AMITRIPTYLINE HCL 100 MG TAB PO SCH (20:25)
[2020-12-23] MEDS: traZODone HCL 100 MG TAB PO SCH (20:25)
[2020-12-24] MEDS: LEVOTHYROXINE SODIUM 50 MCG TABLET PO SCH (05:38)
[2020-12-24] MEDS: cloNIDine HCL 0.1 MG TAB PO SCH (05:38)
[2020-12-24 06:50] LABS: Hematocrit (blood only) 33.8 % (42-52); Hemoglobin 11.1 g/dL (14.0-18.0); Mean Corpuscular Hemoglobin 31.3 pg (25-34); Mean Corpuscular Hgb Conc 32.8 g/dL (32-36); Mean Corpuscular Volume 95.2 fL (80-100); RDW Coefficient of Variation 16.7 % (11.5-14.5); RDW Standard Deviation 58.4 fL (36.4-46.3); Red Blood Count 3.55 M/uL (4.7-6.1); White Blood Count 3.65 K/uL (4.8-10.8)
[2020-12-24 06:51] LABS: Mean Platelet Volume 11.3 fL (7.4-10.4); Platelet Count 84 K/uL (130-400)
[2020-12-24 07:06] LABS: Prothrombin Time 49.9 Seconds (9.0-12.0)
[2020-12-24 07:18] LABS: INR 5.6 (0.9-1.1)
[2020-12-24 07:36] LABS: BUN Creatinine Ratio 3.6 (10-20); Calcium 8.2 mg/dl (8.5-10.1); Creatinine Clr Calc Pharmacy 10.7 ml/min; Est GFR (African American) 8.5 ml/min; Est GFR (Non-African American) 7.3 ml/min; Potassium 4.4 mmol/L (3.5-5.1)
[2020-12-24] MEDS: oxyCODONE HCL IR 5 MG TAB (IMMEDIATE RELEASE) PO PRN (08:36)
[2020-12-24] MEDS: ASPIRIN 81 MG ECTAB PO SCH (08:38)
[2020-12-24] MEDS: SERTRALINE HCL 100 MG TABLET PO SCH (08:38)
[2020-12-24] MEDS: PANTOprazole 40 MG TAB PO SCH (08:38)
[2020-12-24] MEDS: SEVELAMER HCL 800 MG TABLET PO SCH (08:39)
[2020-12-24] MEDS: CINACALCET HCL 30 MG TAB PO SCH (08:39)
[2020-12-24] MEDS: CHOLECALCIFEROL 1,000 UNITS 25 MCG TAB PO SCH (08:39)
[2020-12-24] MEDS: carvediloL 12.5 MG TAB PO SCH (08:40)
[2020-12-24] MEDS: METOCLOPRAMIDE HCL 5 MG TABLET PO SCH (08:40)
--- NOTE | 2020-12-24 10:13 | Nephrology Progress Note ---
Date of Service December 24, 2020 Assessment & Plan (1) ESRD (end stage renal disease) on dialysis: Patient with ESRD on dialysis Friday at [place]. He was admitted with chest pain and chronic clot in his left upper arm AV fistula. Patient had declotting and dialysis Friday. He is now on heparin drip. Electrolytes are stable no signs of volume overload. No indication for dialysis today. Next dialysis will be on Friday. This can be outpatient. Admission and Anticipated Discharge Date Admission Date: December 18, 2020 Subjective Seen in follow-up for ESRD. He feels better this morning denies any shortness of breath. He had dialysis Friday. Continues heparin drip Review of Systems Review of Systems: All systems reviewed & are unremarkable except as noted in HPI & below Physical Exam Physical Exam: General exam: Appears comfortable, no acute distress HEENT: Pupils are equal and reactive to light Neck: No JVD, neck is supple trachea is midline Respiratory system: Clear breath sounds bilaterally. Gastrointestinal: Abdomen is soft, non distended, non tender, bowel sounds are present CVS: Regular rate and rhythm. No murmurs, rubs or gallops Musculoskeletal: No joint or muscle tenderness Extremities: Non tender, no edema, peripheral pulses are present Neuro: Oriented, no tremors, no focal neurological deficits Skin: No rashes Results & Data ([facility]) Vital Signs (Past 12 Hours) Vital Signs Temp Pulse Resp BP Pulse Ox 12/24/20 06:05 36.4 C L 74 16 114/84 93 12/23/20 22:35 36.9 C 73 16 122/81 96 Laboratory Results 12/24/20 06:18 12/24/20 06:18 WBC 3.65 L RBC 3.55 L MCV 95.2 MCH 31.3 MCHC 32.8 RDW Std Deviation 58.4 H RDW Coeff of [place] 16.7 H Plt Count 84 L MPV 11.3 H
--- NOTE | 2020-12-24 12:03 | Hospitalist Progress Note ---
Date of Service December 24, 2020 Assessment & Plan (1) Left upper extremity deep vein thrombosis: Left upper extremity deep vein thrombosis ? Chronic given Collaterals Ultrasound: Obstructing left subclavian deep vein thrombosis. Incompletely obstructing thrombus in the fistula IV heparin discontinued Hold Coumadin today Monitor INR :2.4> 5.6 Advised to continue to be hospitalized for INR monitoring, but patient refused and prefers to be discharged He was advised to PT/INT checked tomorrow and follow up with Coumadin clinic tomorrow which he agrees to comply Advised NOT to take Coumadin today and advised to seek immediate medication attention if he develops any bleeding. 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 S/P fistulogram, percutaneous transluminal angioplasty Appreciate vascular surgery input If patient further has issues with AV fistula, patient prefers to follow-up with his vascular surgeon in [place] (3) ESRD (end stage renal disease) on dialysis: End-stage renal disease on hemodialysis H/O failed renal transplant Appreciate Nephrology Input HD as per Nephrology (4) HTN (hypertension): BP Variable Hold hydralazine Decreased carvedilol to 12.5 mg twice daily Decreased clonidine to 0.2 mg 3 times daily Continue medications with holding parameters Needs follow-up with nephrology upon discharge Hyperkalemia Missed hemodialysis prior to admission Potassium levels normalized Monitor (5) GERD (gastroesophageal reflux disease): (6) CAD (coronary artery disease): H/O CAD S/P Stents Continue aspirin, carvedilol (7) Kidney transplant failure: Chronic thrombocytopenia Monitor platelet count CODE STATUS Full Code DVT Px: IV heparin, Coumadin (8) Hypoglycemia: As per Prior hospitalist Received 10 unit of regular insulin and 1 ampoule of D50 to control hyperkalemia Has a profound hypoglycemia with a blood sugar of 22 with profuse sweating and abnormal jerking movements of the extremities At that time his blood pressure was noted to be very high with a systolic more than 200 A code jesus was called and that was managed appropriately with intravenous D50 and also use of Nitropaste to control blood pressure Patient did not have any loss of consciousness and all of his symptoms resolved Admission and Anticipated Discharge Date Admission Date: December 18, 2020 Subjective Patient is seen and examined at bedside Denies any bleeding issues Eager to get discharged Denies any fistula pain Denies chest pain, dyspnea, dizziness, nausea, abdominal pain Review of Systems Review of Systems: All systems reviewed & are unremarkable except as noted in HPI & below Physical Exam Physical Exam: Physical Exam: Vitals signs as noted above General Appearance:Moderately built and nourished, no apparent distress Head: normocephalic, Atraumatic Eyes: normal inspection, EOMI Neck: supple, Trachea midline Respiratory/Chest: Normal breath sounds, CTA Cardiovascular: S1, S2, No murmur Abdomen/GI:Soft, Non tender, Bowel sounds present Extremities/Musculoskeletal:normal inspection, no edema, LUE AV fistula Neurologic/Psych:AAOX3, grossly no focal neurological deficits Skin: normal color, warm Results & Data Results & Data ([facility]) Vital Signs (Past 12 Hours) Vital Signs Temp Pulse Resp BP Pulse Ox 12/24/20 11:57 36.4 C L 74 16 114/84 93 12/24/20 06:05 36.4 C L 74 16 114/84 93 Laboratory Results Short CBC 12/24/20 Range/Units 06:18 WBC 3.65 L (4.8-10.8) K/uL Hgb 11.1 L (14.0-18.0) g/dL Hct 33.8 L (42-52) % Plt Count 84 L (130-400) K/uL BMP 12/24/20 06:18 Sodium 133 L Potassium 4.4 Chloride 99 Carbon Dioxide 27 BUN 29 H D Creatinine 8.14 H* D Glucose 90 Calcium 8.2 L
[2020-12-24] MEDS: ALPRAZolam 0.5 MG TABLET PO SCH (12:24)
--- NOTE | 2020-12-24 13:07 | Discharge Summary ---
Date of Service December 24, 2020 Admission HPI Per Admitting Provider He is a 40-year-old male with significant past medical history including end- stage renal disease on hemodialysis, CAD status post stenting coronary artery, hypertension, history of failed kidney transplant, GERD, depression and history of thrombocytopenia apparently has been complaining of pain involving the left shoulder and left forearm for the last 7 days. His pain has been worsening with any movement of the left upper extremity and worse pain as of today involving the left anterior shoulder area with some questionable swelling and also tenderness and swelling involving the AV fistula in left forearm. He also complained to have some numbness and tingling involving the left arm but no discoloration of the left upper extremity. Denies any fever and/or chills, no chest pain and/or palpitation, no nausea and or vomiting and no shortness of breath cough or hemoptysis. The ER physician Dr. Atkinson in [facility] did talk to Dr. Aguirre the on-call vascular surgeon about the findings who will be consulted and will see the patient tomorrow. Senior Online Marketing Manager on-call was also informed about the admission. He missed his dialysis this morning but can have dialysis tomorrow morning given his current stable status without any significant electrolyte abnormalities. He was evaluated in the [place] emergency room and was transferred to [facility] for continued care Admission Exam Per Admitting Provider Chief Complaint: Pain in the left shoulder and left arm for the last 7 days Primary Care Provider: Fanny Chen MD He is a 40-year-old male with significant past medical history including end- stage renal disease on hemodialysis, CAD status post stenting coronary artery, hypertension, history of failed kidney transplant, GERD, depression and history of thrombocytopenia apparently has been complaining of pain involving the left shoulder and left forearm for the last 7 days. His pain has been worsening with any movement of the left upper extremity and worse pain as of today involving the left anterior shoulder area with some questionable swelling and also tenderness and swelling involving the AV fistula in left forearm. He also complained to have some numbness and tingling involving the left arm but no discoloration of the left upper extremity. Denies any fever and/or chills, no chest pain and/or palpitation, no nausea and or vomiting and no shortness of breath cough or hemoptysis. The ER physician Dr. Atkinson in [facility] did talk to Dr. Aguirre the on-call vascular surgeon about the findings who will be consulted and will see the patient tomorrow. Senior Online Marketing Manager on-call was also informed about the admission. He missed his dialysis this morning but can have dialysis tomorrow morning given his current stable status without any significant electrolyte abnormalities. He was evaluated in the [place] emergency room and was transferred to [facility] for continued care Principal Diagnosis Left upper extremity deep vein thrombosis AV Fistula Occlusion Hyperkalemia Discharge Data Allergies Allergy/AdvReac Type Severity Reaction Status Date / Time minoxidil AdvReac Intermediate priapism Verified 11/06/20 15:19 prednisone AdvReac Intermediate SEVERE GI Verified 11/06/20 15:19 UPSET, CONSTIPATION terazosin AdvReac Intermediate priapism Verified 11/06/20 15:19 Consultations 12/18/20 12:47 Consult Vascular Surgery Routine 12/19/20 10:29 Consult Nephrology Routine Procedures Performed Operation Date: 12/22/20 11:10 Actual Procedures p Fistulogram, Percutaneous Transluminal Angioplasty Peripheral Venous, Moderate Sedation [id number](Left) - Ziggy Aguirre MD Ultrasound: Obstructing left subclavian deep vein thrombosis. Incompletely obstructing thrombus in the fistula Ordered Studies 12/22/20 07:10 EV angio arteriovenous shunt Routine Hospital Course (1) Left upper extremity deep vein thrombosis: Left upper extremity deep vein thrombosis ? Chronic given Collaterals Ultrasound: Obstructing left subclavian deep vein thrombosis. Incompletely obstructing thrombus in the fistula IV heparin discontinued Hold Coumadin today Monitor INR :2.4> 5.6 Advised to continue to be hospitalized for INR monitoring, but patient refused and prefers to be discharged He was advised to PT/INT checked tomorrow and follow up with Coumadin clinic tomorrow which he agrees to comply Advised NOT to take Coumadin today and advised to seek immediate medication attention if he develops any bleeding. 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 S/P fistulogram, percutaneous transluminal angioplasty Appreciate vascular surgery input If patient further has issues with AV fistula, patient prefers to follow-up with his vascular surgeon in [place] (3) ESRD (end stage renal disease) on dialysis: End-stage renal disease on hemodialysis H/O failed renal transplant Appreciate Nephrology Input HD as per Nephrology (4) HTN (hypertension): BP Variable Hold hydralazine Decreased carvedilol to 12.5 mg twice daily Decreased clonidine to 0.2 mg 3 times daily Continue medications with holding parameters Needs follow-up with nephrology upon discharge Hyperkalemia Missed hemodialysis prior to admission Potassium levels normalized Monitor (5) GERD (gastroesophageal reflux disease): (6) CAD (coronary artery disease): H/O CAD S/P Stents Continue aspirin, carvedilol (7) Kidney transplant failure: Chronic thrombocytopenia Monitor platelet count CODE STATUS Full Code DVT Px: IV heparin, Coumadin (8) Hypoglycemia: As per Prior hospitalist Received 10 unit of regular insulin and 1 ampoule of D50 to control hyperkalemia Has a profound hypoglycemia with a blood sugar of 22 with profuse sweating and abnormal jerking movements of the extremities At that time his blood pressure was noted to be very high with a systolic more than 200 A code purple was called and that was managed appropriately with intravenous D50 and also use of Nitropaste to control blood pressure Patient did not have any loss of consciousness and all of his symptoms resolved Total Time Total Time Spent Total Time Spent (In Minutes): 40 minutes Total Time Includes: Examination of the Patient, Discharge Planning, Medication Reconciliation, Communication With Other Providers and Other Discharge Plan Discharge Items Patient Disposition: Home - Self-Care Reason For Visit: LUE THROMBOSIS Discharge Diagnosis: Left upper extremity deep vein thrombosis AV Fistula Occlusion Hyperkalemia Activity: Per Instructions section Exercise/Sports: Wait until after follow-up appointment Non-emergency contact: Primary Care Provider and Senior Online Marketing Manager Call non-emergency contact if: you have any medication questions, your symptoms worsen, your pain is not controlled, your pain is worsening, your pain is concerning for you and you have a fever Follow-up/Referrals: Fanny Chen MD [Primary Care Provider] - Diet: Dialysis Renal Ambulatory Orders: Prothrombin Time INR (Routine) Timeframe: 20201225 Location: Determined by Patient Ordered By: Asif Steel Add Attending Provider Instructions: Follow-up with your primary care physician in 1 week Follow-up with your produce team lead tomorrow 12/25/20 for hemodialysis Follow-up with Coumadin clinic on 12/25/20 for monitoring your PT/INR and adjusting your coumadin dosing as advised Get blood test (PT/INR) on 12/25/20 and follow up with coumadin clinic as advised for further doing of your coumadin Your Target PT/INR is between 2.0 to 3.0 Your PT/INR is 5.6 today (12/24/20). DO NOT TAKE COUMADIN TODAY. Your blood pressure medications are adjusted secondary to relatively low blood pressure during your hospital stay. Discuss with your produce team lead for further adjustment of your medications tomorrow. Seek immediate medical attention if your symptoms reoccur or worsen Please take all medications as instructed on discharge list below. Please call if you have any questions or problems. You can reach a [facility] hospitalist on duty at [facility] 24 hours a day by calling [phone] Pending Studies at Discharge: No Stand-Alone Forms: My [facility], Smoking Cessation Medications and DC Order Prescriptions: New warfarin 1 mg tablet 1 mg PO UD Qty: 60 RF: 0 warfarin 2 mg tablet 2 mg PO UD Qty: 60 RF: 0 Continued alprazolam 0.5 mg tablet 0.5 mg PO TID RF: 0 pantoprazole 40 mg tablet,delayed release (DR/EC) 40 mg PO BID RF: 0 gabapentin 100 mg capsule 100 mg PO HS RF: 0 cholecalciferol (vitamin D3) [Vitamin D3] 1,000 unit Tablet 3,000 unit PO QAM RF: 0 sertraline 100 mg Tablet 100 mg PO DAILY RF: 0 metoclopramide HCl 5 mg Tablet 5 mg PO TID RF: 0 trazodone 100 mg Tablet 100 mg PO HS RF: 0 sevelamer HCl 400 mg Tablet 1,600 mg PO TID RF: 0 amitriptyline 100 mg Tablet 100 mg PO HS RF: 0 cinacalcet 30 mg Tablet 30 mg PO DAILY RF: 0 Velphoro 500 mg Tablet,Chewable 500 mg PO TID RF: 0 Levothyroxine tablet 50 mcg PO QAM RF: 0 aspirin 81 mg Tablet 81 mg PO QAM RF: 0 Changed carvedilol 25 mg Tablet 12.5 mg PO BID Qty: 0 RF: 0 clonidine HCl 0.2 mg tablet 0.2 mg PO Q8 Qty: 0 RF: 0 Discontinued hydralazine 50 mg Tablet 50 mg PO BID RF: 0 Discharge Orders: Discharge Order (Routine); Ordered 12/24/20 Ordered By: Asif Morrison/Other Patient Handouts: Hemodialysis Admission Data Admit Date/Time: 12/18/20 13:09 Attending Provider: Asif Steel Admit Provider: Harley Gonzales Primary Care Provider: Fanny Chen Other Providers: Ziggy Aguirre ; Brady Chen Other Interventions: Discharge Summary Assessment (RN) Last Done: 12/24/20 11:57
== END 2020-12-24 12:44 | disposition home or self-care (01) | DRG 252 ==
LOC: 2E 13:09 → SUATTDRO 13:09 → 3N 12-20 12:03

== ENCOUNTER 2024-11-25 16:50 | Observation (INO) ==
[2024-11-25 17:54] LABS: Basophils # (auto) 0.04 K/uL (0.00-0.20); Basophils % (auto) 0.6 %; Eosinophils # (auto) 0.14 K/uL (0.00-0.50); Hematocrit (blood only) 37.8 % (42.0-52.0); Hemoglobin 12.3 g/dl (14.0-18.0); Immature Granulocytes # (auto) 0.02 K/uL (0.01-0.20); Immature Granulocytes % (auto) 0.3 %; Lymphocytes # (auto) 0.85 K/uL (1.20-3.40); Lymphocytes % (auto) 12.1 %; Mean Corpuscular Hemoglobin 28.4 pg (25.0-34.0); Mean Corpuscular Hgb Conc 32.5 g/dL (32.0-36.0); Mean Corpuscular Volume 87.3 fL (80.0-100.0); Mean Platelet Volume 12.7 fL (9.4-12.4); Monocytes # (auto) 0.52 K/uL (0.11-0.59); Monocytes % (auto) 7.4 %; Neutrophils # (auto) 5.43 K/uL (1.40-6.50); Neutrophils % (auto) 77.6 %; Platelet Count 154 K/uL (130-400); RDW Coefficient of Variation 14.6 % (11.5-14.5); RDW Standard Deviation 46.6 fL (36.4-46.3); Red Blood Count 4.33 M/uL (4.70-6.10)
--- NOTE | 2024-11-25 18:06 | Emergency Department Note ---
Impression & Plan Gastroenteritis, History of kidney transplant, Hyperkalemia, Hypomagnesemia, Hyperglycemia ED Provider Note NAME: LISHA ZAVALA AGE: 44 SEX: M : 1980 ARRIVES VIA: Walk-In INFORMANT: Patient ED PROVIDER(S): Butch Chapin MD CHIEF COMPLAINT: Nausea, vomiting, diarrhea, hyperglycemia, referred. PLAN: Disposition: Admit MEDICAL DECISION MAKING: The patient is a pleasant 44-year-old gentleman with a past medical history of end-stage renal disease previously on hemodialysis now s/p third renal transplant 03/2022, history of two failed kidney transplants, history of pancreatitis, gastroparesis, CAD with h/o PCI, DVT who presents to the emergency department emergency department via walk-in for evaluation of nausea, vomiting, diarrhea over the past several days in the setting of the patient noting elevated blood sugars at home where he does not have a diagnosis of diabetes. The patient reports he contacted his PCP office and was referred to the emergency department. Patient reports his most recent baseline kidney function ranges from a creatinine of 2-3. He reports his transplant team in [place] is aware of this. He denies fevers, chills, cough congestion, chest pain or shortness of breath. On evaluation the patient is no acute distress, afebrile with stable vital signs. He appears clinically dry. WBC and platelets within normal limits. H/H 12.3/37.8, similar to prior. Chemistry without metabolic acidosis. Potassium 6.3 without EKG changes with calcium gluconate administered out of caution. Creatinine 3.16 which appears to be approximate to the patient's baseline. Glucose 207 with repeat improved to 89 following treatment with D50 and insulin for hyperkalemia. LFTs unremarkable. Magnesium 1.3 with IV repletion provided. Lipase wnl. UA without convincing evidence of infection. CT of the abd pelvis demonstrates evidence of gastroenteritis. Additional note is made of bladder wall thickening, nonspecific. Upon evaluation the patient was feeling improved following IV hydration. Repeat chemistry demonstrates trending improvement in creatinine to 2.9 with improvement potassium of 5.6. Patient does agree with plan for admission for further management. Case was discussed with Dr. Baeza, [facility] hospitalist, who will evaluate the patient for admission. Further management per admitting team. Triage Nursing notes reviewed and agree them. Prior/external medical records reviewed Vital Signs: reviewed Differential diagnosis: Infection, dehydration, metabolic abnormality, hypo/hyperglycemia, electrolyte disturbance, anemia, hypoxia, cardiac sources, intracerebral event, toxicologic, neurologic, as well as other pathologies. ER treatment provided: See below. Diagnostics interpreted by me: ECG: Normal sinus rhythm, 64 bpm, no ectopy, no overt ST ovation depression, QTc 412, QRS 78. Cardiac Monitoring: An order for continuous cardiac monitoring was placed and demonstrated normal sinus rhythm, 64 bpm, no ectopy Laboratory studies: See below Imaging studies: See below Consultation(s): Dr. Baeza [facility] hospitalist HPI: Per MDM. ROS: See above HPI for pertinent positives & negatives. A total of 10 systems reviewed and were otherwise negative. VITALS:See Below PHYSICAL EXAMINATION: GENERAL: Awake, alert, fatigued-appearing, in no distress HENT: Normocephalic, atraumatic. Oropharynx with dry mucous membranes and otherwise unremarkable. EYES: Normal conjunctiva. Sclera non-icteric. NECK: Supple. No nuchal rigidity. FROM. No JVD. RESPIRATORY: Clear to auscultation. CARDIAC: Regular rate, normal rhythm. Extremities warm and well perfused. Pulses equal. ABDOMEN: Soft, non-distended. No tenderness to palpation. No rebound or guarding. No masses. MUSCULOSKELETAL: Chest examination reveals no tenderness. The back is symmetrical on inspection without obvious abnormality. There is no CVA tenderness to palpation. No joint edema. LOWER EXTREMITIES: Calves are equal size bilaterally and non-tender. No edema. No discoloration. NEURO: Normal sensorium. No sensory or motor deficits noted. SKIN: No rash or jaundice noted. ED COURSE: Critical Care: I have personally spent greater than 35 minutes of critical care time in the direct management of this patient. This includes bedside care, interpretation of diagnostic studies, and testing, discussion with consultants, patient, and family members, and other required patient management activities. This 35 minutes is in excess of all separately billable procedures. Butch Chapin MD Past Med/Surg History Problem List Gastroenteritis [id number] kidney injury Acute hyperkalemia Stented coronary artery "stents x 2 in [place] in 2006 and 2010" Depression Anxiety (Chronic) History of kidney transplant (Chronic) Gastroparesis (Chronic) Insomnia (Chronic) HTN (hypertension) (Chronic) GERD (gastroesophageal reflux disease) (Chronic) CAD (coronary artery disease) (Chronic) Medical History ESRD (end stage renal disease) on dialysis Thrombocytopenia AV fistula occlusion Kidney transplant failure Left upper extremity deep vein thrombosis Ileus AV fistula LEFT BICEP Glomerulonephritis "BORN WITH" Arthritis Hx of pancreatitis Hypothyroidism Anxiety and depression Surgical History Kidney transplant status "R 1984 and L 2012" Arteriovenous fistula removed History of esophagogastroduodenoscopy (EGD) History of colonoscopy [place] teeth removed Family History Father Diabetes Kidney disease Hypertension Family history of diabetes mellitus Mother Kidney disease Hypertension Sister Ulcerative colitis Other No family history of adverse response to anesthesia Denies family history of Ovarian cancer Prostate cancer Breast cancer Lung cancer Stroke Social History Smoking Status: Former smoker Tobacco Type: Cigarettes Age Started Using Tobacco: 14; Age Quit Using Tobacco: 32; packs per day: 0.5; Smoking End Date: 2012; Second Hand Exposure: No; Do You Dip or Chew Tobacco: No; Hx Alcohol Use: No Hx Substance Use: No Preferred Language: Indian Communication Ability: Effective Visual Impairment: Limited Hearing Ability: Normal Night Supervisor Required: No Beliefs That Will Affect Care: None marital status: Current Living Situation: Alone current occupational status: employed and disabled current occupation: part-time How many Children do You have: 1 Other Information That Helps Us Care for You: No Feels Safe at Home: Yes Safety Concerns: Feels Safe At This Time Childhood Exposure to Second-Hand Smoke: No Diet: regular caffeine: Yes during the past year weight has: remained stable Dental Care, Regularly: No Physical Activity Frequency: Daily Seatbelt Use: always Sunscreen Use: No Assistive Devices: Glasses Allergies Allergies Allergy/AdvReac Type Severity Reaction Status Date / Time minoxidil AdvReac Intermediate priapism Verified 11/25/24 20:44 terazosin AdvReac Intermediate priapism Verified 11/25/24 20:44 Home Meds Home Medications Medication Instructions Recorded Confirmed azathioprine 50 mg tablet 25 mg PO DAILY 01/08/24 11/25/24 prednisone 5 mg tablet 5 mg PO DAILY 01/08/24 11/25/24 sulfamethoxazole 400 1 tab PO .three times a week 01/08/24 11/25/24 mg-trimethoprim 80 mg tablet tacrolimus 1 mg capsule, 2 mg PO DAILY 01/08/24 11/25/24 immediate-release tacrolimus 1 mg capsule,extended 1 mg PO HS 11/25/24 11/25/24 release 24 hr Previous Rx's Medication Instructions Recorded hydralazine 25 mg tablet 25 mg PO TID #270 tabs 03/08/24 pantoprazole 40 mg tablet,delayed 40 mg PO BID #180 tabs 05/04/24 release clonidine HCl 0.2 mg tablet 0.2 mg PO TID #270 tabs 08/16/24 nortriptyline 10 mg capsule 10 mg PO DAILY #90 caps 08/31/24 metoclopramide HCl 5 mg tablet 5 mg PO TID #90 tabs 10/06/24 carvedilol 25 mg tablet 25 mg PO BID #180 tabs 10/07/24 hydroxyzine HCl 25 mg tablet 25 mg PO TID PRN anxiety #60 tabs 10/28/24 Results & Data (ED) Vital Signs Vital Signs - 24 hr 11/25/24 17:15 11/25/24 18:03 11/25/24 18:08 Temperature 36.6 C Temperature Source Temporal Artery Scan Pulse Rate 75 71 Pulse Rate from SpO2 Sensor Respiratory Rate 16 Respiratory Effort / Characteristics Non-Labored Spontaneous Respiratory Depth Normal Blood Pressure 114/83 105/74 Blood Pressure Mean 93 87 Pulse Oximetry 97 Oxygen Delivery Method Room Air Sepsis Recent Fever Within 48 Hours No Sepsis New/Unexplained Change in Mental Status No Sepsis Action Taken by Nursing No Action Required 11/25/24 18:30 11/25/24 19:00 11/25/24 19:30 Temperature Temperature Source Pulse Rate 68 66 67 Pulse Rate from SpO2 Sensor 66 Respiratory Rate 18 19 16 Respiratory Effort / Characteristics Respiratory Depth Blood Pressure 108/82 108/81 109/77 Blood Pressure Mean 87 90 89 Pulse Oximetry 96 95 95 Oxygen Delivery Method Room Air Room Air Room Air Sepsis Recent Fever Within 48 Hours Sepsis New/Unexplained Change in Mental Status Sepsis Action Taken by Nursing 11/25/24 21:00 11/25/24 21:30 11/25/24 22:00 Temperature Temperature Source Pulse Rate 63 67 62 Pulse Rate from SpO2 Sensor Respiratory Rate 22 18 14 Respiratory Effort / Characteristics Respiratory Depth Blood Pressure 98/73 L 110/77 98/74 L Blood Pressure Mean 78 81 83 Pulse Oximetry 99 96 95 Oxygen Delivery Method Room Air Room Air Room Air Sepsis Recent Fever Within 48 Hours Sepsis New/Unexplained Change in Mental Status Sepsis Action Taken by Nursing 11/25/24 22:15 11/25/24 22:18 11/25/24 22:30 Temperature Temperature Source Pulse Rate 59 L 60 59 L Pulse Rate from SpO2 Sensor 59 L Respiratory Rate 22 22 Respiratory Effort / Characteristics Respiratory Depth Blood Pressure 183/112 H 190/119 H Blood Pressure Mean 135 148 Pulse Oximetry 97 96 Oxygen Delivery Method Room Air Room Air Sepsis Recent Fever Within 48 Hours Sepsis New/Unexplained Change in Mental Status Sepsis Action Taken by Nursing Laboratory Data Attestation: I reviewed the patient's lab results. 11/26/24 02:28 11/26/24 02:28 Lab Results 11/25/24 11/25/24 11/25/24 Range/Units 17:38 17:59 19:05 WBC 7.00 (4.8-10.8) K/ul RBC 4.33 L (4.70-6.10) M/uL Hgb 12.3 L (14.0-18.0) g/dl Hct 37.8 L (42.0-52.0) % MCV 87.3 (80.0-100.0) fL MCH 28.4 (25.0-34.0) pg MCHC 32.5 (32.0-36.0) g/dL RDW Std Deviation 46.6 H (36.4-46.3) fL RDW Coeff of [place] 14.6 H (11.5-14.5) % Plt Count 154 (130-400) K/uL MPV 12.7 H (9.4-12.4) fL Immature Gran % (Auto) 0.3 % Neut % (Auto) 77.6 % Lymph % (Auto) 12.1 % Todd % (Auto) 7.4 % Eos % (Auto) 2.0 % Baso % (Auto) 0.6 % Neut # (Auto) 5.43 (1.40-6.50) K/uL Lymph # (Auto) 0.85 L (1.20-3.40) K/uL Todd # (Auto) 0.52 (0.11-0.59) K/uL Eos # (Auto) 0.14 (0.00-0.50) K/uL Baso # (Auto) 0.04 (0.00-0.20) K/uL Immature Gran # (Auto) 0.02 (0.01-0.20) K/uL Sodium Cancelled 135 L Potassium Cancelled 6.3 H* Chloride Cancelled 110 H Carbon Dioxide Cancelled 22 Anion Gap Cancelled 3 BUN Cancelled 39 H Creatinine Cancelled 3.16 H Est Cr Clr Drug Dosing Cancelled 24.9 eGFR Cancelled 23.63 BUN/Creatinine Ratio Cancelled 12.3 Glucose Cancelled 207 H POC Glucose 187 H (70-99) mg/dl Calcium Cancelled 9.9 Magnesium 1.3 L (1.7-2.4) mg/dl Total Bilirubin Cancelled 0.3 Direct Bilirubin 0.1 (0-0.2) mg/dl AST Cancelled 22 ALT Cancelled 25 Alkaline Phosphatase Cancelled 127 H Total Creatine Kinase (30-223) U/L Total Protein Cancelled 6.4 Albumin Cancelled 3.9 Globulin Cancelled 2.5 Albumin/Globulin Ratio Cancelled 1.6 Lipase 49 (11-82) U/L Urine Color Urine Appearance (Clear) Urine pH (4.5-7.5) Ur Specific [place] (1.000-1.030) Urine Protein (Negative) Urine Glucose (UA) (Negative) Urine Ketones (Negative) Urine Blood (Negative) Urine Nitrite (Negative) Urine Bilirubin (Negative) Urine Urobilinogen (Negative) Ur Leukocyte Esterase (Negative) Urine WBC (Auto) (0-5) /hpf Urine RBC (Auto) (0-2) /hpf U Hyaline Cast (Auto) (0-2) /lpf U Epithel Cells (Auto) (0-2) /hpf Urine Bacteria (Auto) (None Seen) 11/25/24 11/25/24 11/25/24 Range/Units 20:38 20:58 21:32 WBC (4.8-10.8) K/ul RBC (4.70-6.10) M/uL Hgb (14.0-18.0) g/dl Hct (42.0-52.0) % MCV (80.0-100.0) fL MCH (25.0-34.0) pg MCHC (32.0-36.0) g/dL RDW Std Deviation (36.4-46.3) fL RDW Coeff of [place] (11.5-14.5) % Plt Count (130-400) K/uL MPV (9.4-12.4) fL Immature Gran % (Auto) % Neut % (Auto) % Lymph % (Auto) % Todd % (Auto) % Eos % (Auto) % Baso % (Auto) % Neut # (Auto) (1.40-6.50) K/uL Lymph # (Auto) (1.20-3.40) K/uL Todd # (Auto) (0.11-0.59) K/uL Eos # (Auto) (0.00-0.50) K/uL Baso # (Auto) (0.00-0.20) K/uL Immature Gran # (Auto) (0.01-0.20) K/uL Sodium Potassium Chloride Carbon Dioxide Anion Gap BUN Creatinine Est Cr Clr Drug Dosing eGFR BUN/Creatinine Ratio Glucose POC Glucose 120 H 89 (70-99) mg/dl Calcium Magnesium (1.7-2.4) mg/dl Total Bilirubin Direct Bilirubin (0-0.2) mg/dl AST ALT Alkaline Phosphatase Total Creatine Kinase (30-223) U/L Total Protein Albumin Globulin Albumin/Globulin Ratio Lipase (11-82) U/L Urine Color Yellow Urine Appearance Clear (Clear) Urine pH 7.0 (4.5-7.5) Ur Specific [place] 1.015 (1.000-1.030) Urine Protein 1+ H (Negative) Urine Glucose (UA) 2+ H (Negative) Urine Ketones Negative (Negative) Urine Blood Negative (Negative) Urine Nitrite Negative (Negative) Urine Bilirubin Negative (Negative) Urine Urobilinogen Negative (Negative) Ur Leukocyte Esterase Negative (Negative) Urine WBC (Auto) 0-5 (0-5) /hpf Urine RBC (Auto) 0-2 (0-2) /hpf U Hyaline Cast (Auto) 0-2 (0-2) /lpf U Epithel Cells (Auto) 0-2 (0-2) /hpf Urine Bacteria (Auto) None Seen (None Seen) 05/08/25 05/08/25 Range/Units 22:24 22:33 WBC (4.8-10.8) K/ul RBC (4.70-6.10) M/uL Hgb (14.0-18.0) g/dl Hct (42.0-52.0) % MCV (80.0-100.0) fL MCH (25.0-34.0) pg MCHC (32.0-36.0) g/dL RDW Std Deviation (36.4-46.3) fL RDW Coeff of [place] (11.5-14.5) % Plt Count (130-400) K/uL MPV (9.4-12.4) fL Immature Gran % (Auto) % Neut % (Auto) % Lymph % (Auto) % Todd % (Auto) % Eos % (Auto) % Baso % (Auto) % Neut # (Auto) (1.40-6.50) K/uL Lymph # (Auto) (1.20-3.40) K/uL [place] # (Auto) (0.11-0.59) K/uL Eos # (Auto) (0.00-0.50) K/uL Baso # (Auto) (0.00-0.20) K/uL Immature Gran # (Auto) (0.01-0.20) K/uL Sodium 139 Potassium 5.6 H Chloride 114 H Carbon Dioxide 19 L Anion Gap 6 BUN 38 H Creatinine 2.99 H Est Cr Clr Drug Dosing 26.3 eGFR 25.25 BUN/Creatinine Ratio 12.7 Glucose 63 L POC Glucose 50 L* (70-99) mg/dl Calcium 10.8 H Magnesium (1.7-2.4) mg/dl Total Bilirubin Direct Bilirubin (0-0.2) mg/dl AST ALT Alkaline Phosphatase Total Creatine Kinase 42 (30-223) U/L Total Protein Albumin Globulin Albumin/Globulin Ratio Lipase (11-82) U/L Urine Color Urine Appearance (Clear) Urine pH (4.5-7.5) Ur Specific [place] (1.000-1.030) Urine Protein (Negative) Urine Glucose (UA) (Negative) Urine Ketones (Negative) Urine Blood (Negative) Urine Nitrite (Negative) Urine Bilirubin (Negative) Urine Urobilinogen (Negative) Ur Leukocyte Esterase (Negative) Urine WBC (Auto) (0-5) /hpf Urine RBC (Auto) (0-2) /hpf U Hyaline Cast (Auto) (0-2) /lpf U Epithel Cells (Auto) (0-2) /hpf Urine Bacteria (Auto) (None Seen) Administered Medications Sodium Chloride (Nss) 1,000 mls @ 150 mls/hr IV .Q6H40M MEÑO Stop: 11/28/24 22:44 Last Admin: 11/26/24 01:22 Dose: 150 mls/hr Documented By: YO Pantoprazole Sodium (Pantoprazole 40 Mg Tab) 40 mg PO BID MEÑO Stop: 12/26/24 00:56 Last Admin: 11/26/24 02:26 Dose: 40 mg Documented By: YO Discontinued Medications Dextrose (Dextrose 50% 50 Ml Syringe) 50 ml IV NOW STA Stop: 11/25/24 20:13 Last Admin: 11/25/24 20:39 Dose: 50 ml Documented By: CHERIE Dextrose (Dextrose 50% 50 Ml Syringe) 50 ml IV NOW ONE Stop: 11/25/24 22:32 Last Admin: 11/25/24 22:50 Dose: 50 ml Documented By: CHERIE Sodium Chloride (Nss) 1,000 mls @ 999 mls/hr IV .Q1H1M ONE Stop: 11/25/24 19:43 Last Infusion: 11/25/24 23:14 Dose: Infused Documented By: Admin: 11/25/24 19:07 Dose: 999 mls/hr Documented By: XI Famotidine (Pepcid 20mg Iv Push) 20 mg in 5 mls @ 2.5 mls/min IV NOW STA Stop: 11/25/24 18:44 Last Admin: 11/25/24 19:07 Dose: 2.5 mls/min Documented By: XI Magnesium Sulfate/Dextrose (Magnesium Sulfate / D5w) 1 gm in 100 mls @ 100 mls/hr IV Q1H MEÑO Stop: 11/25/24 22:10 Last Infusion: 11/25/24 23:58 Dose: Infused Documented By: Admin: 11/25/24 22:19 Dose: 100 mls/hr Documented By: Infusion: 11/25/24 21:39 Dose: Infused Documented By: Admin: 11/25/24 20:39 Dose: 100 mls/hr Documented By: CHERIE Calcium Gluconate () 1,000 mg in 60 mls @ 240 mls/hr IV Q15M MEÑO Stop: 11/25/24 20:44 Last Infusion: 11/25/24 21:35 Dose: Infused Documented By: Admin: 11/25/24 21:12 Dose: 240 mls/hr Documented By: Infusion: 11/25/24 20:54 Dose: Infused Documented By: Admin: 11/25/24 20:39 Dose: 240 mls/hr Documented By: CHERIE Insulin Human Regular 10 units (/ Syringe) 9.9 mls @ 3 mls/sec IV ONE STA Stop: 11/25/24 20:13 Last Admin: 11/25/24 20:39 Dose: 3 mls/sec Documented By: CHERIE Co-signed By: ASAD Sodium Chloride (Nss) 500 mls @ 999 mls/hr IV .Q31M ONE Stop: 11/25/24 23:12 Last Infusion: 11/25/24 23:58 Dose: Infused Documented By: Admin: 11/25/24 23:11 Dose: 999 mls/hr Documented By: Ondansetron HCl (Ondansetron Inj 2 Mg/Ml 2 Ml Vial) 4 mg IV NOW STA Stop: 11/25/24 18:44 Last Admin: 11/25/24 19:07 Dose: 4 mg Documented By: XI Imaging Data Radiologist's Impression: Abdomen/Pelvis CT 11/25/24 18:46 Exam(s): CT ABDOMEN + PELVIS Without Contrast EXAM: CT Abdomen and Pelvis Without Intravenous Contrast CLINICAL HISTORY: Reason for exam: n/v/d. TECHNIQUE: Axial computed tomography images of the abdomen and pelvis without intravenous contrast. CTDI is 10.06 mGy and DLP is 460.64 mGy-cm. Automated exposure control was utilized for the study. A dose lowering technique was utilized adhering to the principles of ALARA. COMPARISON: CT abdomen/pelvis on 09/21/2021 FINDINGS: Lung bases: Small calcified granuloma in the right lower lobe. No consolidation. ABDOMEN: Liver: Unremarkable. Gallbladder and bile ducts: Unremarkable. No calcified stones. No ductal dilation. Pancreas: Unremarkable. No ductal dilation. Spleen: Mild splenomegaly. Adrenals: Unremarkable. No mass. Kidneys and ureters: Severely atrophic [place] kidneys. Atrophy of the left lower quadrant transplant kidney with renal vascular calcifications. Atrophic right lower quadrant transplant kidney as well as a unremarkable right lower quadrant transplant kidney. No hydronephrosis or obstructing stone. Stomach and bowel: Mild prominence of the boland of the descending colon and sigmoid colon may be secondary to underdistention. Colitis is not included. Diverticulosis without evidence of diverticulitis. No small bowel obstruction. PELVIS: Appendix: Normal appendix. Bladder: Mild prominence of the bladder wall there is nonspecific. Please correlate with urinalysis to evaluate for cystitis. No stones. Reproductive: Prostatomegaly. ABDOMEN and PELVIS: Intraperitoneal space: Unremarkable. No free air. No significant fluid collection. Bones/joints: Mild degenerative changes of the spine. No acute fracture. No dislocation. Soft tissues: Unremarkable. Vasculature: Atherosclerotic changes of the vasculature. No abdominal aortic aneurysm. Lymph nodes: Unremarkable. No enlarged lymph nodes. IMPRESSION: 1. Mild prominence of the boland of the descending colon and sigmoid colon may be secondary to underdistention. Colitis is not included. 2. Mild prominence of the bladder wall there is nonspecific. Please correlate with urinalysis to evaluate for cystitis. 3. Severely atrophic [place] kidneys. Atrophy of the left lower quadrant transplant kidney with renal vascular calcifications. 4. Atrophic right lower quadrant transplant kidney as well as a unremarkable right lower quadrant transplant kidney. No hydronephrosis or obstructing stone. 5. Prostatomegaly. Electronically signed by: Cathleen Lyman M.D. 11/25/24 20:25 PM Discharge Plan Visit Data Chief Complaint: Hyperglycemia Stated Complaint: HIGH BLOOD SUGAR, PAIN, SICK NESS ED Provider: Butch Chapin Discharge Problem: Gastroenteritis, History of kidney transplant, Hyperkalemia, Hypomagnesemia, Hyperglycemia Patient Disposition: Admitted As Inpatient Condition: Serious Discharge Instructions Interventions: ED Discharge Assessment Last Done: 11/26/24 00:21
[2024-11-25] MEDS: SODIUM CHLORIDE 0.9% 1,000 ML IV ONE (19:07)
[2024-11-25] MEDS: FAMOTIDINE 20MG IV PUSH 20 MG/5 ML SYR IV STA (19:07)
[2024-11-25] MEDS: ONDANSETRON INJ 2 MG/ML 2 ML VIAL IV STA (19:07)
[2024-11-25 19:32] LABS: Bilirubin Direct 0.1 mg/dl (0-0.2); Magnesium 1.3 mg/dl (1.7-2.4)
[2024-11-25 19:55] LABS: Albumin Globulin Ratio 1.6 (0.9-2); Albumin Level 3.9 gm/dl (3.4-5.0); BUN Creatinine Ratio 12.3 (10-20); Bilirubin,Total 0.3 mg/dl (0.2-1.0); Calcium 9.9 mg/dl (8.6-10.3); Creatinine Clr Calc Pharmacy 24.9 ml/min; Globulin 2.5 gm/dl (2.5-4.0); Potassium 6.3 mmol/L (3.5-5.1); Total Protein 6.4 gm/dl (6.0-8.3)
--- NOTE | 2024-11-25 20:27 | CT Scan Report ---
Exam(s): CT ABDOMEN + PELVIS Without Contrast EXAM: CT Abdomen and Pelvis Without Intravenous Contrast CLINICAL HISTORY: Reason for exam: n/v/d. TECHNIQUE: Axial computed tomography images of the abdomen and pelvis without intravenous contrast. CTDI is 10.06 mGy and DLP is 460.64 mGy-cm. Automated exposure control was utilized for the study. A dose lowering technique was utilized adhering to the principles of ALARA. COMPARISON: CT abdomen/pelvis on 09/21/2021 FINDINGS: Lung bases: Small calcified granuloma in the right lower lobe. No consolidation. ABDOMEN: Liver: Unremarkable. Gallbladder and bile ducts: Unremarkable. No calcified stones. No ductal dilation. Pancreas: Unremarkable. No ductal dilation. Spleen: Mild splenomegaly. Adrenals: Unremarkable. No mass. Kidneys and ureters: Severely atrophic [place] kidneys. Atrophy of the left lower quadrant transplant kidney with renal vascular calcifications. Atrophic right lower quadrant transplant kidney as well as a unremarkable right lower quadrant transplant kidney. No hydronephrosis or obstructing stone. Stomach and bowel: Mild prominence of the boland of the descending colon and sigmoid colon may be secondary to underdistention. Colitis is not included. Diverticulosis without evidence of diverticulitis. No small bowel obstruction. PELVIS: Appendix: Normal appendix. Bladder: Mild prominence of the bladder wall there is nonspecific. Please correlate with urinalysis to evaluate for cystitis. No stones. Reproductive: Prostatomegaly. ABDOMEN and PELVIS: Intraperitoneal space: Unremarkable. No free air. No significant fluid collection. Bones/joints: Mild degenerative changes of the spine. No acute fracture. No dislocation. Soft tissues: Unremarkable. Vasculature: Atherosclerotic changes of the vasculature. No abdominal aortic aneurysm. Lymph nodes: Unremarkable. No enlarged lymph nodes. IMPRESSION: 1. Mild prominence of the boland of the descending colon and sigmoid colon may be secondary to underdistention. Colitis is not included. 2. Mild prominence of the bladder wall there is nonspecific. Please correlate with urinalysis to evaluate for cystitis. 3. Severely atrophic [place] kidneys. Atrophy of the left lower quadrant transplant kidney with renal vascular calcifications. 4. Atrophic right lower quadrant transplant kidney as well as a unremarkable right lower quadrant transplant kidney. No hydronephrosis or obstructing stone. 5. Prostatomegaly. Electronically signed by: Cathleen Lyman M.D. 11/25/24 20:25 PM
[2024-11-25] MEDS: CALCIUM GLUCONATE 1,000 MG/60 ML BAG IV SCH (20:39)
[2024-11-25] MEDS: DEXTROSE 50% 50 ML SYRINGE IV STA (20:39)
[2024-11-25] MEDS: MAGNESIUM SULFATE / D5W 1 GM/100 ML BAG IV SCH (20:39)
[2024-11-25] MEDS: INSULIN HUMAN REGULAR PER UNIT 10 UNITS in SYRINGE 9.9 ML IV STA (20:39)
--- NOTE | 2024-11-25 22:28 | History & Physical Report ---
Date of Service November 25, 2024 Assessment & Plan (1) Acute hyperkalemia: (2) Xcikf-yl-shaemvo kidney injury: (3) History of kidney transplant: (4) Gastroenteritis: Plan Patient is a 44 y/o male with a PMHx of ESRD s/p bilateral renal transplant (2 failed, most recent March 2022), anxiety, CAD s/p stents, HTN, left upper extremity DVT. Patient presented due to 1 and half week nausea, vomiting, diarrhea concerned that his glucose was elevated in the 200s. Patient was found to have a potassium of 6.3 and magnesium 1.3. He stated his baseline creatinine runs from 2-3. #hyperkalemia - suspect 2/2 mild RUDOLPH. K+ 6.3 -> repeat 5.6. Bicarb 22, anion gap 3. - CK ordered - negative 42 - given 2g calcium gluconate, 10 units insulin, dextrose 50% 50 mL x2 in the ED - Received 1L NSS bolus in ED; additional 500 mL NSS bolus with NSS at 150 mL/hour ordered - Will defer further calcium and insulin; Anticipate K+ to further improve with IV fluids - is on tacrolimus which can contribute to hyperkalemia however benefits outweigh risk with renal transplant; continue tacrolimus - BMP q4h #RUDOLPH on CKD - suspect 2/2 volume depletion with gastroenteritis. Baseline creatinine patient reports between 2-3; CR 3.16 on arrival. UA with 1+ protein and 2+ glucose. Follows with [facility] for renal transplant. - urine Na and Cr ordered to calculate FENa - Hold Bactrim - Continue prednisone, azithromycin, tacrolimus - Mag 1.3 -> 2G IV mag ordered - trend BMP and mag - strict I's and O's #gastroenteritis - AP CT showed for colitis and possible cystitis, atrophic kidneys. - Zofran as needed - Continue PPI - Fluid resuscitation as above - patient feeling much improved at time of admission, will advance diet #hyperglycemia - patient presented due to concern for elevated glucose in 200s at home. No history of DM - Patient became hypoglycemic after insulin in ED; dextrose ordered and improved to 158 - 2+ glucose present in UA - A1c ordered #HTN - stable, became mildly hypotensive with hypoglycemic episode now improved - continue carvedilol, hydralazine, clonidine #Anxiety stable - Continue nortriptyline and hydroxyzine as needed #Anemia - suspect of chronic kidney disease. Hgb baseline. VTE ppx: Heparin; hx of LUE DVT Dispo: med/tele Admission and Anticipated Discharge Date Admission Date: 11/25/24 History of Present Illness Chief Complaint: hyperglycemia Primary Care Provider: Kelechi Bennett, CATHY, BRAYDON Patient is a 44 y/o male with a PMHx of ESRD s/p bilateral renal transplant (2 failed, most recent March 2022), anxiety, CAD s/p stents, HTN, left upper extremity DVT. patient presented due to 1 and half week nausea, vomiting, diarrhea concerned that his glucose was elevated in the 200s. Patient was found to have a potassium of 6.3 and magnesium 1.3. He stated his baseline creatinine runs from 2-3. Patient seen at bedside. He stated that he was seen at both [facility] ERs last week due to his vomiting and diarrhea. He stated his potassium was high at both of these places and they did treated and sent him home. He is unsure what his potassium was there. He stated his creatinine most recently at [place] last week was little above 3. Patient is concerned that he has undiagnosed diabetes. He has no noted history of diabetes mellitus. He was given insulin with Dextrose in the ER to correct potassium - Patient's glucose is now 50 and he is having symptomatic dizziness, lightheadedness, diaphoresis, and weakness; will order additional dextrose. Patient stated the past week he denies any dizziness, lightheadedness, chest pain, shortness of breath, dysuria, difficultly urinating, decrease in urination, muscle cramps, heart palpitations. He does endorse mild abdominal pain and has had significant decreased p.o. intake. Denies nicotine or alcohol use. He took his morning medications but will get her evening medications; he has more somebody pressure medications this week due to vomiting. He wishes to be full code. Allergies Allergy/AdvReac Type Severity Reaction Status Date / Time minoxidil AdvReac Intermediate priapism Verified 11/25/24 20:44 terazosin AdvReac Intermediate priapism Verified 11/25/24 20:44 Home Medications Medication Instructions Recorded Confirmed Type azathioprine 50 mg tablet 25 mg PO DAILY 01/08/24 11/25/24 History prednisone 5 mg tablet 5 mg PO DAILY 01/08/24 11/25/24 History sulfamethoxazole 400 1 tab PO .three times a week 01/08/24 11/25/24 History mg-trimethoprim 80 mg tablet tacrolimus 1 mg capsule, 2 mg PO DAILY 01/08/24 11/25/24 History immediate-release hydralazine 25 mg tablet 25 mg PO TID #270 tabs 03/08/24 11/25/24 Rx pantoprazole 40 mg tablet,delayed 40 mg PO BID #180 tabs 05/04/24 11/25/24 Rx release clonidine HCl 0.2 mg tablet 0.2 mg PO TID #270 tabs 08/16/24 11/25/24 Rx nortriptyline 10 mg capsule 10 mg PO DAILY #90 caps 08/31/24 11/25/24 Rx metoclopramide HCl 5 mg tablet 5 mg PO TID #90 tabs 10/06/24 11/25/24 Rx carvedilol 25 mg tablet 25 mg PO BID #180 tabs 10/07/24 11/25/24 Rx hydroxyzine HCl 25 mg tablet 25 mg PO TID PRN anxiety #60 tabs 10/28/24 11/25/24 Rx tacrolimus 1 mg capsule,extended 1 mg PO HS 11/25/24 11/25/24 History release 24 hr Past Med/Surg History Problem List Gastroenteritis Zusaw-bq-nntdxrr kidney injury Acute hyperkalemia Stented coronary artery "stents x 2 in [place] in 2006 and 2010" Depression Anxiety (Chronic) History of kidney transplant (Chronic) Gastroparesis (Chronic) Insomnia (Chronic) HTN (hypertension) (Chronic) GERD (gastroesophageal reflux disease) (Chronic) CAD (coronary artery disease) (Chronic) Medical History ESRD (end stage renal disease) on dialysis Thrombocytopenia AV fistula occlusion Kidney transplant failure Left upper extremity deep vein thrombosis Ileus AV fistula LEFT BICEP Glomerulonephritis "BORN WITH" Arthritis Hx of pancreatitis Hypothyroidism Anxiety and depression Surgical History Kidney transplant status "R 1984 and L 2012" Arteriovenous fistula removed History of esophagogastroduodenoscopy (EGD) History of colonoscopy [place] teeth removed Family History Father Diabetes Kidney disease Hypertension Family history of diabetes mellitus Mother Kidney disease Hypertension Sister Ulcerative colitis Other No family history of adverse response to anesthesia Denies family history of Ovarian cancer Prostate cancer Breast cancer Lung cancer Stroke Social History Smoking Status: Former smoker Tobacco Type: Cigarettes Age Started Using Tobacco: 14; Age Quit Using Tobacco: 32; packs per day: 0.5; Smoking End Date: 2012; Second Hand Exposure: No; Do You Dip or Chew Tobacco: No; Hx Alcohol Use: No Hx Substance Use: No Preferred Language: Armenian Communication Ability: Effective Visual Impairment: Limited Hearing Ability: Normal Handbag Designer Required: No Beliefs That Will Affect Care: None marital status: Current Living Situation: Alone current occupational status: employed and disabled current occupation: part-time How many Children do You have: 1 Other Information That Helps Us Care for You: No Feels Safe at Home: Yes Safety Concerns: Feels Safe At This Time Childhood Exposure to Second-Hand Smoke: No Diet: regular caffeine: Yes during the past year weight has: remained stable Dental Care, Regularly: No Physical Activity Frequency: Daily Seatbelt Use: always Sunscreen Use: No Assistive Devices: Glasses Review of Systems Review of Systems: see HPI Physical Exam Physical Exam: The patient is awake, alert and oriented 3, pale, diaphoretic. HEENT- EOMI, mucous membranes dry. Hearing grossly intact. Heart-normal S1 and S2. No murmurs, rubs or gallops. Lungs-clear bilaterally, no respiratory distress, no accessory muscle use. Abdomen-normal bowel sounds and soft. No ascites noted. Non-tender. Extremities- no clubbing, cyanosis, or edema. Rheumatologic-normal range of motion. Psychiatric-normal affect. Results & Data Results & Data Vital Signs (Past 12 Hours) Vital Signs Temp Pulse Resp BP Pulse Ox O2 Del Method 11/25/24 22:15 59 L 11/25/24 21:30 67 18 110/77 96 Room Air 11/25/24 21:00 63 22 98/73 L 99 Room Air 11/25/24 19:30 67 16 109/77 95 Room Air 11/25/24 19:00 66 19 108/81 95 Room Air 11/25/24 18:30 68 18 108/82 96 Room Air 11/25/24 18:08 71 11/25/24 18:03 105/74 11/25/24 17:15 36.6 C 75 16 114/83 97 Room Air Laboratory Results reviewed cbc, cmp, a1c, mag, ua Diagnostic Findings reviewed AP CT Medications Administered ED - 1L NSS, Pepcid, zofran, Mag 2g IV, calcium 2g IV, insulin human regular 10 U, dextrose 50% 50 ml x 2 ECG Additional Comments: ordered Code Status & VTE Plan Code Status full VTE Prophylaxis Plan VTE Prophylaxis will be ordered: Yes Supervising Physician Co-Signing Physician Notes patient seen examined, chart reviewed, case discussed with COURTNEY Salinas and I agree with the assessment and plan as documented above. In brief, patient is a 44-year-old male with history of ESRD status post renal transplant, coronary artery disease, hypertension presenting with elevated blood sugars and diarrhea. Hyperkalemia On exam patient is resting comfortably in bed 2 562 Skinintact, no rashes or lesions HEENTmoist mucous membranes, neck supple Heart+ S1, S2, regular Lungs CTA anteriorly Abdomensoft, nontender, nondistended labs and images reviewed Potassium = 6.3--> 5.6-->6 HCO3 = 22-->19--> 19 BUN = 38 Creatinine = 2.94 Assessment/planacute hyperkalemia Medical management with calcium gluconate, insulin/D50, bicarbonate, Lokelma x 1 dose Will hold Bactrim Consider nephrology consultation Will continue all home anti-antirejection medications Check hemoglobin A1c to assess for diabetes. Patient reports that his blood sugars have been high recently Remainder as above PG Care Time/CCT Total # of Minutes Spent Total Time Spent with Patient: Total time spent is greater than 50% in coordination of care (as documented) at patient's floor/unit and/or counseling patient: Coding Level of Care Code 18320 INT INP/OBS CARE 375MIN Diagnoses Acute hyperkalemia E87.5 Qvtnm-td-maufnri kidney injury N17.9; N18.9 History of kidney transplant Z94.0 Gastroenteritis K52.9
[2024-11-25] MEDS: DEXTROSE 50% 50 ML SYRINGE IV ONE (22:50)
[2024-11-25 22:53] LABS: Appearance Urine Clear (Clear); Bacteria Urine Automated None Seen (None Seen); Bilirubin Urine Negative (Negative); Blood Urine Negative (Negative); Cast Urine Automated 0-2 /lpf (0-2); Color Urine Yellow; Epithelial Cell Urine Auto 0-2 /hpf (0-2); Glucose Urine UA 2+ (Negative); Ketones Urine Negative (Negative); Leukocyte Esterase Urine Negative (Negative); Nitrite Urine Negative (Negative); Protein Urine 1+ (Negative); RBC Urine Automated 0-2 /hpf (0-2); Specific Gravity Urine 1.015 (1.000-1.030); Urobilinogen Urine Negative (Negative); WBC Urine Automated 0-5 /hpf (0-5)
[2024-11-25 23:10] LABS: BUN Creatinine Ratio 12.7 (10-20); Calcium 10.8 mg/dl (8.6-10.3); Creatinine Clr Calc Pharmacy 26.3 ml/min; Potassium 5.6 mmol/L (3.5-5.1)
[2024-11-25] MEDS: SODIUM CHLORIDE 0.9% 500 ML IV ONE (23:11)
[2024-11-26] MEDS ORDERED: MELATONIN 3 MG TAB PO PRN (00:57)
[2024-11-26] MEDS ORDERED: DOCUSATE SODIUM 100 MG CAP PO PRN (00:57)
[2024-11-26] MEDS: SODIUM CHLORIDE 0.9% 1,000 ML IV SCH (01:22)
[2024-11-26] MEDS: PANTOprazole 40 MG TAB PO SCH (02:26)
[2024-11-26 02:57] LABS: Basophils # (auto) 0.04 K/uL (0.00-0.20); Basophils % (auto) 0.6 %; Eosinophils # (auto) 0.11 K/uL (0.00-0.50); Eosinophils % (auto) 1.6 %; Hemoglobin 12.1 g/dl (14.0-18.0); Immature Granulocytes # (auto) 0.03 K/uL (0.01-0.20); Immature Granulocytes % (auto) 0.4 %; Lymphocytes # (auto) 0.77 K/uL (1.20-3.40); Mean Corpuscular Hemoglobin 28.5 pg (25.0-34.0); Mean Corpuscular Hgb Conc 31.8 g/dL (32.0-36.0); Mean Corpuscular Volume 89.4 fL (80.0-100.0); Mean Platelet Volume 12.3 fL (9.4-12.4); Monocytes # (auto) 0.47 K/uL (0.11-0.59); Monocytes % (auto) 6.7 %; Neutrophils # (auto) 5.61 K/uL (1.40-6.50); Neutrophils % (auto) 79.7 %; Platelet Count 112 K/uL (130-400); RDW Coefficient of Variation 14.7 % (11.5-14.5); RDW Standard Deviation 48.3 fL (36.4-46.3); Red Blood Count 4.25 M/uL (4.70-6.10); White Blood Count 7.03 K/ul (4.8-10.8)
[2024-11-26 03:11] LABS: BUN Creatinine Ratio 12.9 (10-20); Calcium 10.2 mg/dl (8.6-10.3); Creatinine Clr Calc Pharmacy 27.3 ml/min
--- NOTE | 2024-11-26 03:51 | Communication Note ---
Date of Service: November 26, 2024 Patient's potassium to 6.0 and bicarb down to 19. Ordered: - 1g Calcium gluconate, 10 U human regular insulin, 1 amp dextrose - Steve - bicarb 1x dose continue to trend BMP Patient lost peripheral access - IV placed by IV team. Above treatments will now be given
[2024-11-26] MEDS: DEXTROSE 50% 50 ML SYRINGE IV STA ×2 (04:52→13:16)
[2024-11-26] MEDS: INSULIN HUMAN REGULAR PER UNIT 10 UNITS in SYRINGE 9.9 ML IV STA ×2 (04:52→13:16)
[2024-11-26] MEDS: SODIUM BICARB 8.4% INJ 50 MEQ/50 ML SYR IV STA (04:52)
[2024-11-26] MEDS: CALCIUM GLUCONATE 1,000 MG/60 ML BAG IV STA ×2 (05:03→20:24)
[2024-11-26 07:31] LABS: Estimated Average Glucose 128 mg/dl; Hemoglobin A1C 6.1 % (4.5-5.6)
[2024-11-26] MEDS: cloNIDine HCL 0.1 MG TAB PO SCH (07:56)
[2024-11-26] MEDS: METOCLOPRAMIDE HCL 5 MG TABLET PO SCH (07:56)
[2024-11-26] MEDS: NORTRIPTYLINE HCL 10 MG CAP PO SCH (07:56)
[2024-11-26] MEDS: TACROLIMUS 1 MG CAP PO SCH ×2 (07:56→22:10)
[2024-11-26] MEDS: predniSONE 5 MG TAB PO SCH (07:57)
[2024-11-26] MEDS: carvediloL 25 MG TAB PO SCH (07:57)
[2024-11-26] MEDS: hydrALAZINE HCL 25 MG TAB PO SCH (07:57)
[2024-11-26] MEDS: azaTHIOprine 25 MG TAB PO SCH (07:57)
[2024-11-26] MEDS: HEPARIN SOD 5,000 UNIT/0.5 ML VIAL SQ SCH (08:03)
--- NOTE | 2024-11-26 08:08 | Hospitalist Progress Note ---
Date of Service November 26, 2024 Assessment & Plan (1) Acute hyperkalemia: (2) Iazae-im-vqhlynn kidney injury: (3) History of kidney transplant: (4) Gastroenteritis: Plan Patient is a 44 y/o male with a PMHx of ESRD s/p bilateral renal transplant (2 failed, most recent March 2022), anxiety, CAD s/p stents, HTN, left upper extremity DVT. Presented with GI illness, admitted for management of hyperkalemia and RUDOLPH. #RUDOLPH on CKD #Hyperkalemia Hyperkalemia likely in the setting of RUDOLPH on CKD. Given calcium gluconate to stabilize the cardiac membrane. Insulin with dextrose and albuterol neb to move potassium intracellularly. Fluid resuscitation with NSS. Started Lokelma 10 gm TID. Continue tacrolimus despite hyperkalemia risk to avoid rejection. FENa of 4.3% - likely intrarenal. Continue to monitor. Q4H BMP - further treatment based on values AM EKG #Gastroenteritis Self limiting condition. No longer symptomatic and tolerating PO. Has zofran PRN. Continue PPI. #Prior Kidney Transplant Patient has had multiple kidney transplants and follows with [facility]. On anti-rejection meds - prednisone, azathioprine, and tacrolimus. Holding bactrim due to RUDOLPH. Continue to monitor. #Hyperglycemia UA with +glucose - likely due to intrarenal injury. HbA1c 6.1 indicating at least some degree of insulin resistance. Patient in the pre-diabetic range. Chronic steroid use is likely contributing. Continue dextrose with insulin unless > 250. #HTN - stable, became mildly hypotensive with hypoglycemic episode now improved - continue carvedilol, hydralazine, clonidine #Anxiety stable - Continue nortriptyline and hydroxyzine as needed #Anemia - suspect of chronic kidney disease. Hgb baseline. FENGI: s/p 1.5 L NSS for fluid resuscitation, tolerating PO, if unstable consider giving fluids VTE ppx: SQ Heparin - hx of LUE DVT Dispo: med/tele Admission and Anticipated Discharge Date Admission Date: November 25, 2024 Subjective Patient seen at bedside this AM. Feeling much improved. Was having nausea and vomiting. No fevers or chills. No abdominal pain, constipation, or diarrhea. Now feeling fine. Physical Exam 2 Physical Exam: Gen: appears older than age, NAD HEENT: AT NC MMM Resp: CTAB no wheezing no increased work of breathing CV: RRR no m/r/g clinically well perfused Abd: soft, non-tender, non-distended MSK: no obvious deformities Skin: no rashes or bruising Neuro: alert and oriented Psych: appropriate mood and affect Results & Data Results & Data Laboratory Results 11/26/24 02:28 11/26/24 11:36 Resident Activity Tracking Resident Involvement: Resident Care Provided Care Provided: Adult [facility] Medicine
[2024-11-26 08:29] LABS: BUN Creatinine Ratio 12.2 (10-20); Creatinine Clr Calc Pharmacy 28.8 ml/min; Potassium 5.7 mmol/L (3.5-5.1)
[2024-11-26] MEDS: SODIUM ZIRCONIUM CYCLOSILICATE 10 GM PACKET PO SCH ×2 (10:49→23:59)
[2024-11-26 11:19] LABS: Calcium 9.9 mg/dl (8.6-10.3); Creatinine Clr Calc Pharmacy 28.3 ml/min; Potassium 6.2 mmol/L (3.5-5.1)
[2024-11-26] MEDS: ACETAMINOPHEN 325 MG TAB PO PRN (11:24)
[2024-11-26] MEDS: ONDANSETRON INJ 2 MG/ML 2 ML VIAL IV PRN (11:27)
[2024-11-26 12:11] LABS: Base Excess VBG -6.8 mEq/L; HCO3 VBG 20 mmol/L; Oxygen Saturation VBG 98.3 %; PCO2 VBG 42 mmHg (38-50); PO2 VBG 94 mmHg; pH VBG 7.28 (7.36-7.41)
[2024-11-26 12:35] LABS: BUN Creatinine Ratio 11.4 (10-20); Creatinine Clr Calc Pharmacy 26.9 ml/min; Potassium 6.4 mmol/L (3.5-5.1)
[2024-11-26] MEDS: ALBUTEROL 0.5% NEB SOLN 2.5 MG/0.5 ML VIAL NEB STA (12:54)
--- NOTE | 2024-11-26 16:04 | Nephrology Consultation ---
Date of Consultation November 26, 2024 Assessment & Plan (1) Hyperkalemia: f/u K 6.9 this evening likely multifactorial > CKD, calcineurin inhibitor, beta parul; not hemolyzed wondering if w/ deterioration in allograft function tac dose is now too high > changed NS to bicarb gtt at 200 mL hourly continuous -continue lokelma and low K diet >hold beta blockers for now >just had another 5>>10 units IV insulin and 40 IV lasix and calcium 1 gram ordered by primary service >>I added albuterol tx to above >>continue q4h labs bmp > next ones approx 2200 overnight keep working to eliminate K from body >>continue to dose IV lasix >>continue bicarb gtt -continue obligate tacrolimus >> Coordinated w/ lab to send out tac trough [facility] to [facility] >> should have turnaround in 36-48 hours and maybe we can appropriately adjust dose if needed; suggest also primary f/u w/ [facility] txplt team if feasible Care reviewed w/ [facility] [employer] [facility] and w/ Dr Branch. (2) Zvyyb-em-shhhhgl kidney injury: baseline creatinine per report 2-3. no documentation of this -will need to be seen in [facility] txplt clinic and possibly [facility] neph clinic after d/c (lives in [place]) >> not clear that he is following up / [facility] txplt when I look at limited records in [facility] >>work on OP GI f/u for gastroparesis; consider specialty GI motility clinic such as [facility] (3) History of kidney transplant: continue pred, AZA, tac for now >work on tac trough as above (4) Gastroenteritis: History of Present Illness Reason for Consultation: ESRD, RUDOLPH, hyperkalemia Requesting Physician: Dr Branch Attending Physician: Haris Branch, History of Present Illness 44 y/o M whom I'm asked to see for ESRD/RUDOLPH/hyperkalemia was admitted last evening with RUDOLPH and hyperkalemia in the setting of renal transplant and 10 days of n/v/d. PMH includes CAD s/p stent, congenital renal dz s/p renal txplt 1984, 2012, 2021, advanced CKD with baseline creatinine per report between 2 and 3, hypertension, hypothryoid, migraines, gastroparesis, pancreatitis, anxiety/depression, AVF LUE. He presented with potassium 6.3 (alma value 5.6, up to 6.4 late this morning), creatinine 3.2, down to 3 late this morning, hyperchloremia with presenting chloride 110 up to 115 this morning. He received 10 units of IV insulin x 3, and amp of bicarb, and was started on Lokelma of which he has had 2 doses so far. He received 1.5 L of normal saline with then 150 m liter per hour normal saline ordered. Magnesium 1.3 and he received 2 g of IV magnesium. Repeat basic metabolic panel is pending. He tells me he eats one day and poops the next >> but moving his bowels takes 3+ hours and he's vomiting at the same time. mild abdominal pain which is tolerable currently. feels overwhelmed and exhausted by having kidney disease for so long; has struggled w/ depression/anxiety much more lately b/c of challenging GI status. no sob, no palpitations, no cough; no edema. no dizziness or light headedness. no f/c. no new/worrisome voiding sx. Allergies Allergy/AdvReac Type Severity Reaction Status Date / Time minoxidil AdvReac Intermediate priapism Verified 11/25/24 20:44 terazosin AdvReac Intermediate priapism Verified 11/25/24 20:44 Home Medications Medication Instructions Recorded Confirmed Type azathioprine 50 mg tablet 25 mg PO DAILY 01/08/24 11/25/24 History prednisone 5 mg tablet 5 mg PO DAILY 01/08/24 11/25/24 History sulfamethoxazole 400 1 tab PO .three times a week 01/08/24 11/25/24 History mg-trimethoprim 80 mg tablet tacrolimus 1 mg capsule, 2 mg PO DAILY 01/08/24 11/25/24 History immediate-release hydralazine 25 mg tablet 25 mg PO TID #270 tabs 03/08/24 11/25/24 Rx pantoprazole 40 mg tablet,delayed 40 mg PO BID #180 tabs 05/04/24 11/25/24 Rx release clonidine HCl 0.2 mg tablet 0.2 mg PO TID #270 tabs 08/16/24 11/25/24 Rx nortriptyline 10 mg capsule 10 mg PO DAILY #90 caps 02/11/25 05/08/25 Rx metoclopramide HCl 5 mg tablet 5 mg PO TID #90 tabs 10/06/24 11/25/24 Rx carvedilol 25 mg tablet 25 mg PO BID #180 tabs 10/07/24 11/25/24 Rx hydroxyzine HCl 25 mg tablet 25 mg PO TID PRN anxiety #60 tabs 10/28/24 11/25/24 Rx tacrolimus 1 mg capsule, 1 mg HS 11/26/24 11/26/24 History immediate-release Patient History Medical History ESRD (end stage renal disease) on dialysis Thrombocytopenia AV fistula occlusion Kidney transplant failure Left upper extremity deep vein thrombosis Ileus AV fistula LEFT BICEP Glomerulonephritis "BORN WITH" Arthritis Hx of pancreatitis Hypothyroidism Anxiety and depression Surgical History Kidney transplant status "R 1984 and L 2012" Arteriovenous fistula removed History of esophagogastroduodenoscopy (EGD) History of colonoscopy [place] teeth removed Family History Father Diabetes Kidney disease Hypertension Family history of diabetes mellitus Mother Kidney disease Hypertension Sister Ulcerative colitis Other No family history of adverse response to anesthesia Denies family history of Ovarian cancer Prostate cancer Breast cancer Lung cancer Stroke Social History Smoking Status: Former smoker Tobacco Type: Cigarettes Age Started Using Tobacco: 14; Age Quit Using Tobacco: 32; packs per day: 0.5; Smoking End Date: 2012; Second Hand Exposure: No; Do You Dip or Chew Tobacco: No; Hx Alcohol Use: No Hx Substance Use: No Preferred Language: Maldivian Communication Ability: Effective Visual Impairment: Limited Hearing Ability: Normal Financial Associate Required: No Beliefs That Will Affect Care: None marital status: Current Living Situation: Alone current occupational status: employed and disabled current occupation: part-time How many Children do You have: 1 Other Information That Helps Us Care for You: No Feels Safe at Home: Yes Safety Concerns: Feels Safe At This Time Childhood Exposure to Second-Hand Smoke: No Diet: regular caffeine: Yes during the past year weight has: remained stable Dental Care, Regularly: No Physical Activity Frequency: Daily Seatbelt Use: always Sunscreen Use: No Assistive Devices: None Review of Systems 2 Review of Systems: All systems reviewed & are unremarkable except as noted in Subjective Physical Exam 2 Constitutional: well developed and well nourished Eyes: EOM intact bilaterally ENMT: Mouth: + dry oral mucous membranes Respiratory: normal respiratory effort Auscultation: + diminished lung sounds Gastrointestinal (Abdomen): Inspection/Auscultation: normal bowel sounds P ercussion/Palpation: abdomen soft; abdomen nontender Musculoskeletal: Extremities: strength 5/5 throughout Skin: no rashes, warm and dry Neurologic: leon, fluent speech, no tremor Psychiatric: Orientation: alert (tearful) and oriented x 3 Speech: normal rate/rhythm/volume of speech Results & Data Vital Signs (Past 12 Hours) Vital Signs Temp Pulse Pulse Pulse Resp BP Pulse Ox 11/26/24 15:50 66 11/26/24 15:29 36.7 C 84 18 101/66 97 11/26/24 12:54 84 16 97 11/26/24 11:10 36.6 C 65 17 110/73 96 11/26/24 08:00 68 11/26/24 07:28 36.3 C L 69 16 123/80 97 O2 Del Method O2 Flow Rate 11/26/24 15:50 11/26/24 15:29 Room Air 11/26/24 12:54 Nasal Cannula 1 11/26/24 11:10 Nasal Cannula 2 11/26/24 08:00 11/26/24 07:28 Nasal Cannula 2 Laboratory Results 11/26/24 02:28 11/26/24 11:[address] abdomen pelvis no contrast 1. Mild prominence of the boland of the descending colon and sigmoid colon may be secondary to underdistention. Colitis is not included. 2. Mild prominence of the bladder wall there is nonspecific. Please correlate with urinalysis to evaluate for cystitis. 3. Severely atrophic inupiat kidneys. Atrophy of the left lower quadrant transplant kidney with renal vascular calcifications. 4. Atrophic right lower quadrant transplant kidney as well as a unremarkable right lower quadrant transplant kidney. No hydronephrosis or obstructing stone. 5. Prostatomegaly.
[2024-11-26] MEDS: hydrOXYzine HCl 25 MG TAB PO PRN (18:36)
[2024-11-26 18:42] LABS: BUN Creatinine Ratio 11.4 (10-20); Calcium 10.2 mg/dl (8.6-10.3); Creatinine Clr Calc Pharmacy 26.9 ml/min; Potassium 6.9 mmol/L (3.5-5.1)
[2024-11-26] MEDS ORDERED: INSULIN ASPART PER UNIT CHARGE SC STA (18:56)
--- NOTE | 2024-11-26 19:08 | Communication Note ---
Date of Service: November 26, 2024 revisitedboth to follow-up on labs and because he was feeling anxious. Offered empathy and support. Labs show stable creatinine but potassium up to 6.9. Other than feeling anxious he feels okay. Does note that he is gotten very little help for his gastroparesis as an outpatient. Also notes basically every day feeling very nauseated, not as much vomiting until things are antibiotic controlleddoes not chronically struggle with hyperkalemia only whenever he gets into trouble with nausea and vomiting. No physical distress. Tearful, but consolable. Breathing unlabored. Labs notedcreatinine stable at 2.98, but potassium up to 6.9, glucose 185. EKG sinus rhythm, probably normal although his T waves look slightly more peaked than his EKG from earlier this morningbut still not really truly peaked T's and fortunately no widened QRS hyperkalemiastill worseningcontinue Lokelmait will likely start to dramatically lower his potassium soon, but it does often take a while to take effect. Increase saline to 200 mL an hour, give 40 of Lasix x 1 now. Give dextrose and insulin (given that he is not in ER ICU, will give subcu insulin, every hour glucoses and redosed subcu insulin if his sugars are greater than 200), while I doubt the EKG changes are of true significance given that I have a little bit of concern on EKG changes will give 1000 mg calcium gluconate, continue to follow basic metabolic panel every 4 hours. Signed out to overnight coverage. Gastroparesisdiscussed in depth, discussed building a strategysuspect we wi ll have some improvement with small frequent meals and defined fluid and calorie goals, medically I will want to start mirtazapine at bedtime for sleep as well as for appetite stimulant, and probably start some sort of prokinetic such as erythromycin during the daygiven his hyperkalemia and risk of EKG changes I will hold off on this until we have improvement. For days where his nausea and vomiting start to spiral, likely will utilize something along the lines of 40 mg of famotidine/8 mg of ondansetron/30 mL of Mylanta)but also will draw 24-hour line if he is not able to take in about 60 ounces of fluid for him to come get IV fluids given his tenuous renal situation and propensity towards hyperkalemia when he gets dehydrated anxietyoffered empathy and support. Mirtazapine may help with this some 2.
[2024-11-26] MEDS: FUROSEMIDE 40 MG/4 ML VIAL IV ONE (20:42)
[2024-11-26] MEDS: DEXTROSE 50% 50 ML SYRINGE IV ONE (20:46)
[2024-11-26] MEDS: INSULIN HUMAN REGULAR PER UNIT 10 UNITS in SYRINGE 9.9 ML IV ONE (20:57)
[2024-11-26] MEDS: SODIUM BICARBONATE 8.4% 150 MEQ in DEXTROSE 5% 1,000 ML IV STA (21:03)
--- NOTE | 2024-11-26 21:37 | Electrocardiogram Report ---
Test Reason : Blood Pressure : */* mmHG Vent. Rate : 64 BPM Atrial Rate : 64 BPM P-R Int : 182 ms QRS Dur : 78 ms QT Int : 400 ms P-R-T Axes : 60 85 84 degrees QTcB Int : 412 ms Normal sinus rhythm Normal ECG When compared with ECG of 21-Sep-2021 08:56, No significant change was found Confirmed by Luke Parikh ([id number]) on 11/26/2024 9:36:57 PM Referred By: Kelechi Bennett Confirmed By: Luke Parikh
--- NOTE | 2024-11-26 21:40 | Electrocardiogram Report ---
Test Reason : Blood Pressure : */* mmHG Vent. Rate : 62 BPM Atrial Rate : 62 BPM P-R Int : 182 ms QRS Dur : 90 ms QT Int : 422 ms P-R-T Axes : 67 83 83 degrees QTcB Int : 428 ms Normal sinus rhythm Possible Anterior infarct , age undetermined Nonspecific ST abnormality Abnormal ECG When compared with ECG of 25-Nov-2024 20:07, No significant change was found Confirmed by Luke Parikh ([id number]) on 11/26/2024 9:39:35 PM Referred By: Kelechi Bennett Confirmed By: Luke Parikh
--- NOTE | 2024-11-26 21:40 | Electrocardiogram Report ---
Test Reason : Blood Pressure : */* mmHG Vent. Rate : 73 BPM Atrial Rate : 73 BPM P-R Int : 166 ms QRS Dur : 90 ms QT Int : 398 ms P-R-T Axes : 59 82 69 degrees QTcB Int : 438 ms Sinus rhythm with Premature atrial complexes Otherwise normal ECG When compared with ECG of 26-Nov-2024 00:23, Premature atrial complexes are now Present Confirmed by Luke Parikh ([id number]) on 11/26/2024 9:39:56 PM Referred By: Kelechi Bennett Confirmed By: Luke Parikh
[2024-11-26 21:51] LABS: BUN Creatinine Ratio 10.8 (10-20); Calcium 10.3 mg/dl (8.6-10.3); Creatinine Clr Calc Pharmacy 24.1 ml/min; Potassium 5.3 mmol/L (3.5-5.1)
[2024-11-26] MEDS: MELATONIN 3 MG TAB PO SCH (22:08)
[2024-11-26] MEDS ORDERED: Nursing to Pharmacy Communication SCH (23:00)
[2024-11-27 02:51] LABS: BUN Creatinine Ratio 10.9 (10-20); Potassium 5.1 mmol/L (3.5-5.1)
[2024-11-27] MEDS: ALBUTEROL 0.5% NEB SOLN 2.5 MG/0.5 ML VIAL NEB STA (06:21)
--- NOTE | 2024-11-27 07:27 | Hospitalist Progress Note ---
Date of Service November 27, 2024 Assessment & Plan (1) Acute hyperkalemia: (2) [id number] kidney injury: (3) History of kidney transplant: (4) Gastroenteritis: Plan Patient is a 44 y/o male with a PMHx of ESRD s/p bilateral renal transplant (2 failed, most recent March 2022), anxiety, CAD s/p stents, HTN, left upper extremity DVT. Presented with GI illness, admitted for management of hyperkalemia and RUDOLPH. #RUDOLPH on CKD #Hyperkalemia Hyperkalemia likely in the setting of RUDOLPH on CKD. Given calcium gluconate to stabilize the cardiac membrane. Insulin with dextrose and albuterol neb to move potassium intracellularly. Fluid resuscitation with NSS. Continue tacrolimus despite hyperkalemia risk to avoid rejection. FENa of 4.3% - likely intrarenal. Continue to monitor. - K+ resolved to 4.8 at 7am on 11/27/24 Discontinuing Lokelma BMP in afternoon, AM last EKG 11/26 AM: sinus rhythm with occasional PACs - consider discharge 11/28/24 pending stabilization of electrolytes #Impaired Gastric Motility Continues feeling bloated after eating; zofran PRN, continue PPI - Consider GI consult vs outpatient referral to GI for gastric pacemaker as suggested by Dr. Chen #History of Kidney Transplant Patient has had multiple kidney transplants and follows with [facility]. On anti-rejection meds - prednisone, azathioprine, and tacrolimus. Holding bactrim due to RUDOLPH. Continue to monitor. #Hyperglycemia UA with +glucose - likely due to intrarenal injury. HbA1c 6.1 indicating at least some degree of insulin resistance. Patient in the pre-diabetic range. Chronic steroid use is likely contributing. Continue dextrose with insulin unless >250 - glucose currently 169 #Hypomagnesemia 1.4 on 11/27 - bag mag sulfate ordered #HTN - stable, became mildly hypotensive with hypoglycemic episode now improved - continue carvedilol, hydralazine, clonidine #Anxiety stable - Continue nortriptyline and hydroxyzine as needed #Anemia - suspect of chronic kidney disease. Hgb baseline. FENGI: s/p 1.5 L NSS for fluid resuscitation, tolerating PO, if unstable consider giving fluids VTE ppx: SQ Heparin - hx of LUE DVT Dispo: med/tele Admission and Anticipated Discharge Date Admission Date: November 25, 2024 Supervising Physician Co-Signing Physician Notes I personally examined the patient and verified all painting points of history and exam, discussed case, and agree with decision making with Dr Mccabe physically feeling okay. Emotionally very distraught feels a little bit trapped would very much like to be home with family. We have extensive discussions about social support as well as gastroparesis management as well as nutrition and hydration, as well as medications, as well as constipation (he has a bowel movement about once a week). Vitals noted, in general he is awake and alert pleasant no distress. HEENT normocephalic atraumatic mucous membranes moist. Breathing unlabored no accessory muscle use good effort. Skin without rashes pallor or icterus. Neuro without focal deficits. Acute exacerbation of nausea and vomitingappears to be due to gastroparesis flareupfortunately this has resolved, but left him with subsequent severe and hyperkalemic dehydration dehydration with RUDOLPH on CKD as well as subsequent hyperkalemiafinally improving. Continue current care. Discussed with patient that we are seeing a nice trend of improvement, but really would prefer to see more stable and ongoing improvement to know for sure he would be safe out of the hospitalfollow-up labs in a.m.with stability or ongoing improvement I would anticipate we could get him home in the morning gastroparesis/constipationcurrently on nortriptyline and metoclopramidenotes that both seem to be helping a good bit, but obviously still struggles. Reiterated small frequent meals and getting to nutrition goals and hydration goals so that whenever he has a bad day he is not already dehydrated or malnourished when he starts. Discussed adding mirtazapine at bedtime, will give trial to azithromycin every morning to stimulate motility. Continue nortriptyline and metoclopramide for now, will need to discuss long-term risks with metoclopramide just to be sure he is aware, but it sounds like since it is helping it is probably a favorable risk-benefit balance at this time. Add MiraLAX 3 times daily to help with constipationdiscussed how gastroparesis frequently can cause constipation, but that the constipation can also exacerbate the nausea/upper GI symptoms etc.etc. discussed social support and a more mind- body approach to his whole situation. Otherwise as above Sam Shah was seen and evaluated at bedside this AM, resting comfortably in bed. Endorses feeling generally okay, but endorses feeling a bit bloated after eating. Discussed options of erythromycin as potassium has improved, but will consider a gastric pacemaker after discussion with Dr. Chen. May need GI referral, will try to set up soon followup with PCP this coming week. Wants to go home, but amenable to staying through tomorrow 11/28 to see if his e lectrolytes remain stable. Physical Exam Physical Exam: Gen: in no acute distress, resting in bed HEENT: NC/AT; mildly dry oral mucus membranes Resp: clear to auscultation b/l, no increased work of breathing, no w/r/R CV: RRR no m/r/g, extremities well perfused GI/Abd: soft, mild discomfort to palpation, non-distended MSK: 5/5 strength in all extremities Skin: no rashes, lacs, or bruising observed Neuro: alert and oriented, moves all extremities on command Psych: appropriate mood and affect Results & Data Results & Data Vital Signs (Past 12 Hours) Vital Signs Temp Pulse Pulse Resp BP Pulse Ox O2 Del Method 11/27/24 07:05 57 L 11/27/24 04:01 36.6 C 61 20 147/92 H 95 Room Air 11/26/24 23:40 36.3 C L 54 L 20 129/79 98 Room Air 11/26/24 21:46 65 Resident Activity Tracking Resident Involvement: Resident Care Provided Care Provided: Adult Hospital Medicine
[2024-11-27 08:11] LABS: BUN Creatinine Ratio 10.4 (10-20); Calcium 10.3 mg/dl (8.6-10.3); Creatinine Clr Calc Pharmacy 23.8 ml/min; Potassium 4.8 mmol/L (3.5-5.1)
--- NOTE | 2024-11-27 11:07 | Nephrology Progress Note ---
Date of Service November 27, 2024 Assessment & Plan Admission and Anticipated Discharge Date Admission Date: November 25, 2024 Subjective Assessment & Plan (1) Hyperkalemia: K 6.9 but now normal after Bicarb drip, insulin, Albuterol, lasix and lokelma likely multifactorial > CKD, calcineurin inhibitor, beta parul; not hemolyzed wondering if w/ deterioration in allograft function tac dose is now too high -continue lokelma and low K diet -continue obligate tacrolimus >> Coordinated w/ lab [place] [facility] [place] [facility] [place] should have turnaround in 36-48 hours and maybe we can approp riately adjust dose if needed; suggest also primary f/u w/ [facility] txplt team if feasible (2) Hiskk-el-jgjtzrj kidney injury: baseline creatinine per report 2-3. no documentation of this. However presence of Atrophy in the transplanted kidney with Calcifications means significant CKD. will need to be seen in [facility] txplt clinic and possibly [facility] [place] with Dr Brambila after Discharge (lives in [place]). not clear that he is following up w/ [facility] txplt Creat is down a bit and 2700 ml urine. No iv fluid today. he wants to go home--But we need to establish whether he can maintain K and renal function on his own. if all things stable then maybe tomorrow can be discharged. prograf level still pending and likely will be work on OP GI f/u for gastroparesis---Consideration for gastric pacemaker--- (3) History of kidney transplant: transplant x 3 continue pred, AZA, tac for now work on tac trough as above S--Appears GI symtoms are better. labs stable/better. made 2700 ml urine Physical Exam Constitutional: well developed and well nourished Eyes: EOM intact bilaterally ENMT: Mouth: + dry oral mucous membranes Respiratory: normal respiratory effort Auscultation: + diminished lung sounds Gastrointestinal (Abdomen): Inspection/Auscultation: normal bowel sounds Percussion/Palpation: abdomen soft; abdomen nontender Musculoskeletal: Extremities: strength 5/5 throughout Skin: no rashes, warm and dry Neurologic: leon, fluent speech, no tremor Psychiatric: Orientation: alert (tearful) and oriented x 3 Speech: normal rate/rhythm/volume of speech Results & Data Vital Signs (Past 12 Hours) Vital Signs Temp Pulse Pulse Resp BP Pulse Ox O2 Del Method 11/27/24 07:57 36.7 C 57 L 17 137/86 94 Room Air 11/27/24 07:05 57 L 11/27/24 04:01 36.6 C 61 20 147/92 H 95 Room Air 11/26/24 23:40 36.3 C L 54 L 20 129/79 98 Room Air
[2024-11-27] MEDS: LORazepam 0.5 MG TAB PO PRN (11:50)
[2024-11-27] MEDS: MAGNESIUM SULFATE / D5W 1 GM/100 ML BAG IV ONE (14:01)
[2024-11-27 14:27] LABS: Calcium 10.4 mg/dl (8.6-10.3); Creatinine Clr Calc Pharmacy 24.4 ml/min; Potassium 5.2 mmol/L (3.5-5.1)
[2024-11-27] MEDS: AZITHROMYCIN 250 MG TAB PO SCH (16:08)
--- NOTE | 2024-11-27 16:59 | Billing Data ---
Date of Service November 27, 2024 Coding Level of Care Code 23977 SUB INP/OBS CARE MIN
--- NOTE | 2024-11-27 17:00 | Billing Data ---
Date of Service November 27, 2024 Coding Level of Care Code 82905 SUB INP/OBS CARE MIN
[2024-11-27] MEDS: MIRTAZAPINE TAB 15 MG TAB PO SCH (20:14)
[2024-11-27] MEDS: INSULIN ASPART PER UNIT CHARGE SC SCH (20:15)
[2024-11-27] MEDS: POLYETHYLENE (MIRALAX) 17 GM PACK PO SCH (20:15)
[2024-11-27] MEDS ORDERED: MIRTAZAPINE TAB 15 MG TAB PO SCH (21:00)
[2024-11-28 06:32] LABS: BUN Creatinine Ratio 9.9 (10-20); Calcium 10.1 mg/dl (8.6-10.3); Creatinine Clr Calc Pharmacy 23.2 ml/min; Magnesium 1.6 mg/dl (1.7-2.4); Potassium 4.7 mmol/L (3.5-5.1)
--- NOTE | 2024-11-28 07:22 | Electrocardiogram Report ---
Test Reason : Blood Pressure : */* mmHG Vent. Rate : 64 BPM Atrial Rate : 64 BPM P-R Int : 178 ms QRS Dur : 88 ms QT Int : 386 ms P-R-T Axes : 58 73 86 degrees QTcB Int : 398 ms Normal sinus rhythm Normal ECG When compared with ECG of 26-Nov-2024 05:17, Premature atrial complexes are no longer Present Confirmed by Bin Fenton ([id number]) on 11/28/2024 7:21:37 AM Referred By: Kelechi Bennett Confirmed By: Bin Fenton
--- OUTSIDE RECORDS SUMMARY | 2024-11-28 07:29 | External Medical Summary ---
Author Name Unknown Address Unknown Organization [id number]:[facility] [place] [address] [place] [address] Laboratory Report Ordering Provider Test Date Status NORAM CHAKRABORTY 11/26/2024 20:05:00 Final Test performed by [facility] on [employer]. Therapeutic ranges vary with type of transplant, time post-transplant, clinical protocols, and testing methodology. Results should be interpreted with clinical presentation and any signs rejection/toxicity. Observation Date Value Abnormality Reference (Units ) Status Tacrolimus (FK506) 11/26/2024 20:05:00 15.5 Above upper panic limits 4.0-12.0 (ng/mL) Final Performing Location [facility] - [address] [place] [address]
[2024-11-28 07:45] VITALS: RESP 17; O2SAT 95
--- NOTE | 2024-11-28 11:22 | Nephrology Progress Note ---
Date of Service November 28, 2024 Assessment & Plan Admission and Anticipated Discharge Date Admission Date: November 25, 2024 Subjective Assessment & Plan (1) Hyperkalemia: K 6.9 but now normal after Bicarb drip, insulin, Albuterol, lasix and lokelma likely multifactorial > CKD, calcineurin inhibitor, beta parul; not hemolyzed wondering if w/ deterioration in allograft function tac dose is now too high His renal allograft is not good and is heading towards failure. atrophy and clacifications are not good sign. continue obligate tacrolimus >> Coordinated w/ lab to [place] [facility] [place] [facility] [place] should have turnaround in 36-48 hours and maybe we can appropriately adjust dose if needed; suggest also primary f/u w/ [facility] txplt team if feasible (2) Ohrqx-ev-fdrntyt kidney injury: baseline creatinine per report 2-3. no documentation of this. However presence of Atrophy in the transplanted kidney with Calcifications means significant CKD. will need to be seen in [facility] [place]plt clinic and possibly [facility] [place] with Dr Brambila after Discharge (lives in [place]). not clear that he is following up w/ [facility] txplt No iv fluid today. he wants to go home--But we need to establish whether he can maintain K and renal function on his own. prograf level still pending and likely will be BP is running somewhat low--lower Hydralazine dose work on OP GI f/u for gastroparesis---Consideration for gastric pacemaker. Most likely he can find centers in [place] to do this--he is more familiar there. (3) History of kidney transplant: transplant x 3 continue pred, AZA, tac for now work on tac trough as above Discussed with Dr Branch by phone about the plan. S--Appears GI symptoms are better. labs stable. made 1200 ml urine without IVF. BP is running somewhat low Physical Exam Constitutional: well developed and well nourished Eyes: EOM intact bilaterally ENMT: Mouth: + dry oral mucous membranes Respiratory: normal respiratory effort Auscultation: + diminished lung sounds Gastrointestinal (Abdomen): Inspection/Auscultation: normal bowel sounds Percussion/Palpation: abdomen soft; abdomen nontender Musculoskeletal: Extremities: strength 5/5 throughout Skin: no rashes, warm and dry Neurologic: leon, fluent speech, no tremor Psychiatric: Orientation: alert (tearful) and oriented x 3 Speech: normal rate/rhythm/volume of speech Results & Data Vital Signs (Past 12 Hours) Vital Signs Temp Pulse Pulse Resp BP Pulse Ox O2 Del Method 11/28/24 07:44 36.6 C 58 L 17 103/70 95 Room Air 11/28/24 06:45 56 L 11/28/24 03:31 36.7 C 56 L 16 111/70 94 Room Air 11/27/24 23:34 36.7 C 71 16 95/59 L 95 Room Air
[2024-11-28 11:27] VITALS: BP 103/66; PULSE 67; TEMP 98.1
--- NOTE | 2024-11-28 12:24 | Discharge Summary ---
Date of Service November 28, 2024 Admission HPI Per Admitting Provider Patient is a 44 y/o male with a PMHx of ESRD s/p bilateral renal transplant (2 failed, most recent March 2022), anxiety, CAD s/p stents, HTN, left upper extremity DVT. patient presented due to 1 and half week nausea, vomiting, diarrhea concerned that his glucose was elevated in the 200s. Patient was found to have a potassium of 6.3 and magnesium 1.3. He stated his baseline creatinine runs from 2-3. Patient seen at bedside. He stated that he was seen at both [facility] ERs last week due to his vomiting and diarrhea. He stated his potassium was high at both of these places and they did treated and sent him home. He is unsure what his potassium was there. He stated his creatinine most recently at [place] last week was little above 3. Patient is concerned that he has undiagnosed diabetes. He has no noted history of diabetes mellitus. He was given insulin with Dextrose in the ER to correct potassium - Patient's glucose is now 50 and he is having symptomatic dizziness, lightheadedness, diaphoresis, and weakness; will order additional dextrose. Patient stated the past week he denies any dizziness, lightheadedness, chest pain, shortness of breath, dysuria, difficultly urinating, decrease in urination, muscle cramps, heart palpitations. He does endorse mild abdominal pain and has had significant decreased p.o. intake. Denies nicotine or alcohol use. He took his morning medications but will get her evening medications; he has more somebody pressure medications this week due to vomiting. He wishes to be full code. Admission Exam Per Admitting Provider The patient is awake, alert and oriented 3, pale, diaphoretic. HEENT- EOMI, mucous membranes dry. Hearing grossly intact. Heart-normal S1 and S2. No murmurs, rubs or gallops. Lungs-clear bilaterally, no respiratory distress, no accessory muscle use. Abdomen-normal bowel sounds and soft. No ascites noted. Non-tender. Extremities- no clubbing, cyanosis, or edema. Rheumatologic-normal range of motion. Psychiatric-normal affect. Principal Diagnosis hyperkalemia, ESRD Discharge Exam Gen: in no acute distress, resting in bed HEENT: NC/AT; mildly dry oral mucus membranes Resp: clear to auscultation b/l, no increased work of breathing, no w/r/R CV: RRR no m/r/g, extremities well perfused GI/Abd: soft, mild discomfort to palpation, non-distended MSK: 5/5 strength in all extremities Skin: no rashes, lacs, or bruising observed Neuro: alert and oriented, moves all extremities on command Psych: appropriate mood and affect Discharge Data Allergies Allergy/AdvReac Type Severity Reaction Status Date / Time minoxidil AdvReac Intermediate priapism Verified 11/25/24 20:44 terazosin AdvReac Intermediate priapism Verified 11/25/24 20:44 Consultations 11/25/24 22:19 ED Decision to Admit Stat 11/26/24 14:55 Consult Nephrology Routine Ordered Studies 11/25/24 18:46 CT abd pelvis wo con Stat Hospital Course (1) Acute hyperkalemia: (2) [id number] kidney injury: (3) History of kidney transplant: (4) Gastroenteritis: Plan Patient is a 44 y/o male with a PMHx of ESRD s/p bilateral renal transplant (2 failed, most recent March 2022), anxiety, CAD s/p stents, HTN, left upper extremity DVT. Presented with GI illness, admitted for management of hyperkalemia and RUDOLPH. #RUDOLPH on CKD #Hyperkalemia Hyperkalemia likely in the setting of RUDOLPH on CKD. Given calcium gluconate to stabilize the cardiac membrane. Insulin with dextrose and albuterol neb to move potassium intracellularly. Fluid resuscitation with NSS. Continue tacrolimus despite hyperkalemia risk to avoid rejection. FENa of 4.3% - likely intrarenal. - K+ stable at 4/7 on 11/28/24 Discontinued Lokelma 11/27 last EKG 11/26 AM: sinus rhythm with occasional PACs - discharge 11/28/24 due to continued stabilization of electrolytes #Impaired Gastric Motility Continues feeling bloated after eating; zofran PRN, continue PPI - Miralax initiated, to continue outpatient 3 capfuls daily - outpatient referral to GI motility clinic in [place] for gastric pacemaker as suggested by Dr. Chen #History of Kidney Transplant Patient has had multiple kidney transplants and follows with [facility]. On anti-rejection meds - prednisone, azathioprine, and tacrolimus. Bactrim held due to RUDOLPH. Continue to monitor. #Hyperglycemia UA with +glucose - likely due to intrarenal injury. HbA1c 6.1 indicating at least some degree of insulin resistance. Patient in the pre-diabetic range. Chronic steroid use is likely contributing. Continue dextrose with insulin unless >250 - glucose 237 this AM 11/28 #Hypomagnesemia 1.4 -> 1.6 - 1 bag mag sulfate given 11/27/24 #HTN - stable, became mildly hypotensive with hypoglycemic episode now improved - continue carvedilol, clonidine discontinued Hydralazine #Anxiety stable - Continue nortriptyline and hydroxyzine as needed #Anemia - suspect of chronic kidney disease. Hgb baseline. FENGI: s/p 1.5 L NSS for fluid resuscitation, tolerating PO, if unstable consider giving fluids VTE ppx: SQ Heparin - hx of LUE DVT Dispo: med/tele Total Time Total Time Spent Total Time Spent (In Minutes): 40 Discharge Plan Discharge Items Patient Disposition: Home - Self-Care Reason For Visit: HYPERKALEMIA Discharge Diagnosis: hyperkalemia, resolved Condition on Discharge: Fair Activity: Per Instructions section Non-emergency contact: Primary Care Provider Call non-emergency contact if: your symptoms worsen and your pain is not controlled Follow-up/Referrals: Kelechi Bennett III, CRNP [Primary Care Provider] - 12/06/24 4:00 pm Diet: Low Potassium (2gm) Addtl Attending Provider Instructions: You were evaluated and treated at [facility] for high potassium (hyperkalemia), hyperglycemia (high blood sugar), and gastroparesis (slow GI movement). Hyperkalemia: Found to have initially received calcium gluconate and insulin to help lower your potassium and glucose levels, respectively. The insulin also has an effect of lowering potassium, so that has likely helped with the high potassium as well. You were seen by supervisor sawmill Dr. Chen, who recommended Lokelma to assist in lowering your potassium. After a day on Lokelma your potassium was within normal limits, and thus discontinued to prevent overshooting. Hyperglycemia: Your glucose has been elevated above 200, so you were started on Novolog insulin sliding scale. As your glucose has continued to remain elevated, as well as your creatinine which is above your prior baseline of 2-3, you are otherwise stable to be discharged, but we strongly urge you to follow up with you PCP early this week for continued management of your glucose as well as your potassium levels and kidney function. ESRD: your renal disease is a definite contributor to the above hyperkalemia and hyperglycemia, and it seems your baseline creatinine may be increased to closer to 3.5 at this point. Please follow up closely with your supervisor sawmill, Dr. Brambila, so they can continue treating and evaluating your kidneys. Gastroparesis: Continue taking Miralax 3x daily for your constipation related to impaired gastric motility - may adjust this amount as necessary to achieve one soft and formed BM per day. We will additionally refer you to the gastric motility clinic in [place] so they can further discuss the option of a gastric pacemaker. Hypertension (high blood pressure): as your blood pressures have been normal to on the low side during this hospitalization, we have discontinued your hydralazine. You may continue your carvedilol 25mg BID and clonidine 0.2mg TID. Please see your PCP this week to ensure your blood pressure is well managed, they can then decide to continue keeping you off the hydralazine. Pending Studies at Discharge: No Stand-Alone Forms: My [facility], Smoking Cessation Medications and DC Order Prescriptions: New polyethylene glycol 3350 [Miralax] 17 gram Powder In Packet 17 g PO TID 30 Days Qty: 90 0RF polyethylene glycol 3350 17 gram powder in packet 17 g PO TID Qty: 100 0RF Rx Instructions: 17g (one capful) 3 times a day, may adjust as needed in order to achieve one soft and formed BM per day mirtazapine 15 mg tablet 15 mg PO HS 30 Days Qty: 30 0RF Continued pantoprazole 40 mg tablet,delayed release (DR/EC) 40 mg PO BID Qty: 180 3RF clonidine HCl 0.2 mg tablet 0.2 mg PO TID Qty: 270 3RF carvedilol 25 mg tablet 25 mg PO BID Qty: 180 3RF prednisone 5 mg tablet 5 mg PO DAILY azathioprine 50 mg tablet 25 mg PO DAILY tacrolimus 1 mg capsule 2 mg PO DAILY sulfamethoxazole-trimethoprim 400-80 mg tablet 1 tab PO .three times a week Rx Instructions: Friday, Friday and Friday hydroxyzine HCl 25 mg tablet 25 mg PO TID PRN (Reason: anxiety) Qty: 60 2RF tacrolimus 1 mg capsule 1 mg HS Discontinued nortriptyline 10 mg capsule 10 mg PO DAILY Qty: 90 1RF metoclopramide HCl 5 mg tablet 5 mg PO TID Qty: 90 5RF hydralazine 25 mg tablet 25 mg PO TID Qty: 270 3RF Discharge Orders: Discharge Order (Routine); Ordered 11/28/24 Ordered By: Shayne Morrison/Other Patient Handouts: A1C, Gastroparesis, 5 Steps for Eating Healthier, Hyperkalemia Dc, ED Diet for Chronic Kidney Disease Admission Data Admit Date/Time: 11/25/24 22:51 Attending Provider: Haris Branch Admit Provider: Cathleen Baeza Primary Care Provider: Kelechi Bennett III Other Providers: Cathleen Baeza; Delicia Brambila Other Interventions: Discharge Summary Assessment (RN) Last Done: 11/28/24 12:39 Supervising Physician Co-Signing Physician Notes I personally examined the patient and verified all painting points of history and exam, discussed case, and agree with decision making with Dr Mccabe no new problems, feels up to going home today. reiterated plans. Vitals noted, in general he is awake and alert pleasant no distress. HEENT normocephalic atraumatic mucous membranes moist. Breathing unlabored no accessory muscle use good effort. Skin without rashes pallor or icterus. Neuro without focal deficits. Acute exacerbation of nausea and vomitingappears to be due to gastroparesis flareupfortunately this has resolved, but left him with subsequent severe and hyperkalemic dehydration dehydration with RUDOLPH on CKD as well as subsequent hyperkalemiaK improved. nephrology concerned that this is probably his new baseline of renal function. safe for discharge, close outpt f/u. local nephro as well as transplant nephro gastroparesis/constipationcurrently on nortriptyline and metoclopramidenotes that both seem to be helping a good bit, but obviously still struggles. Reiterated small frequent meals and getting to nutrition goals and hydration goals so that whenever he has a bad day he is not already dehydrated or malnourished when he starts. Discussed adding mirtazapine at bedtime,nephro feels that azithro/erythro would be poor risk/benefit halfway given transplant status. Continue nortriptyline and metoclopramide for now, discussed halfway risks of reglan, but it sounds like since it is helping it is probably a favorable risk-benefit balance at this time. Added MiraLAX 3 times daily to help with constipationdiscussed how gastroparesis frequently can cause constipation, but that the constipation can also exacerbate the nausea/upper GI symptoms etc.etc. discussed social support and a more mind-body approach to his whole situation. lean on social support. ask for tertiary GI referral for consideration of gastric pacemaker Otherwise as above Resident Activity Tracking Resident Involvement: Resident Care Provided Care Provided: Adult Hospital Medicine
--- NOTE | 2024-11-28 18:11 | Billing Data ---
Date of Service November 28, 2024 Coding Level of Care Code 42771 IN/OBS DISCH 30 MIN/LESS
--- NOTE | 2024-11-28 18:14 | Billing Data ---
Date of Service November 28, 2024 Coding Level of Care Code 63284 IN/OBS DISCH 30 MIN/LESS
--- NOTE | 2024-11-29 12:20 | Electrocardiogram Report ---
Test Reason : Blood Pressure : */* mmHG Vent. Rate : 58 BPM Atrial Rate : 58 BPM P-R Int : 174 ms QRS Dur : 96 ms QT Int : 446 ms P-R-T Axes : 67 77 80 degrees QTcB Int : 437 ms Sinus bradycardia Otherwise normal ECG When compared with ECG of 26-Nov-2024 15:39, No significant change was found Confirmed by Jose Jones ([id number]) on 11/29/2024 12:19:54 PM Referred By: Kelechi Bennett Confirmed By: Jose Jones
== END 2024-11-28 12:49 | disposition home or self-care (01) ==
LOC: 2W 16:50 → ED 16:50 → SUATTDRO 22:51 → 2W 11-26 00:21

== ENCOUNTER 2024-12-06 09:06 | Inpatient (IN) ==
--- NOTE | 2024-12-06 09:28 | Emergency Department Note ---
Impression & Plan Nausea & vomiting, Acute hyperkalemia, Abdominal pain, Transaminitis, Hypomagnesemia ED Provider Note HISTORY OF PRESENT ILLNESS: Patient is a 44-year-old male presenting with vomiting, abdominal pain and diarrhea. Patient reports that he has a history of gastroparesis and "is having a flare." He states he is having diffuse abdominal pain that radiates into his back. He states been unable to tolerate anything by mouth since yesterday. He states he took Zofran yesterday with little relief in his symptoms. He reports a few episodes of diarrhea. He denies any fevers. 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 He states that he just cannot keep anything down. ROS: as above PHYSICAL EXAM: Constitutional: Patient appears in no acute distress. HENT: Head: Normocephalic and atraumatic. Eyes: EOMI, PERRL Mouth/Throat: Mucous membranes moist. Neck: Trachea midline. Neck supple. Cardiovascular: RRR, No murmurs, rubs or gallops. Intact distal pulses. Pulmonary/Chest: No respiratory distress. Breath sounds clear and equal bilaterally. No wheezes or rales. Abdominal: Abdomen soft, no rebound or guarding. Generalized TTP Musculoskeletal: No edema, tenderness or deformity noted. Skin: Warm and dry. No rash, erythema, pallor or cyanosis Psychiatric: Appropriate mood and affect for situation. Neurological: Alert and keenly responsive. CN II-XII grossly intact, moving all extremities equally and fully. MDM: - Vitals signs showed hypertension - History obtained via patient. History as above. - Chronic conditions affecting care: ESRD; CAD; HTN; CAD (s/p PCI) - Differential diagnoses include, but are not limited to: Bowel obstruction; dehydration; electrolyte abnormality; viral syndrome - Order placed for continuous cardiac monitoring. At this time, monitor showed rate of 62 bpm with normal sinus rhythm, per my interpretation. - External medical records reviewed. Discharge summary dated 11/28/2024 was reviewed. Patient was admitted that time secondary to acute hyperkalemia and acute on chronic kidney injury. - EKG image interpreted by myself showed normal sinus rhythm. Rate 63 bpm. QT 426. No acute ischemic changes. Patient does have some slight peaking of his T waves. - Laboratory workup interpreted by myself showed leukocytosis (WBC 13.07) with neutrophil predominance; hyperkalemia (K 5.4); elevated anion gap (12); CKD (Cr 2.75); hypercalcemia (Ca 12.0); hypomagnesemia (Mg 1.3); transaminitis (AST 40; ALT 123); elevated total bilirubin (1.1); normal troponin; normal lipase - UA negative for infection. Noted to have ketonuria. - CT abdomen/pelvis wo contrast negative for acute pathology. - Patient given 1L NS, 25 mg IV benadryl and 5 mg IV compazine for symptoms. On reassessment, he still complaining of nausea. He is also complaining of pain and asking for pain medication. He was given 1 g of IV Tylenol. However, on reassessment he is still stating pain management and states that "they normally give me morphine." - Given 500 cc NS, 50 mL dextrose and 5 units insulin for hyperkalemia. Given 1g IV magnesium for electrolyte replacement. - Discussion was had with telehealth case manager about patient's case and need for admission - Hospitalist, Dr. Mason, consulted for admission - Patient admitted to [facility] Hospitalist service for further evaluation and management. ASSESSMENT AND PLAN: Diagnosis: Nausea and vomiting; abdominal pain; transaminitis; hyperkalemia; hypomagnesemia Plan: Admit Past Med/Surg History Problem List (Updated 12/06/24 @ 11:46 by Nesha Damon MD) Hypomagnesemia (Acute) Transaminitis (Acute) Abdominal pain (Acute) Acute hyperkalemia (Acute) Nausea & vomiting (Acute) Hyperkalemia Gastroenteritis [id number] kidney injury Acute hyperkalemia Stented coronary artery "stents x 2 in [place] in 2006 and 2010" Depression Anxiety (Chronic) History of kidney transplant (Chronic) Gastroparesis (Chronic) Insomnia (Chronic) HTN (hypertension) (Chronic) GERD (gastroesophageal reflux disease) (Chronic) CAD (coronary artery disease) (Chronic) Medical History ESRD (end stage renal disease) on dialysis Thrombocytopenia AV fistula occlusion Kidney transplant failure Left upper extremity deep vein thrombosis Ileus AV fistula LEFT BICEP Glomerulonephritis "BORN WITH" Arthritis Hx of pancreatitis Hypothyroidism Anxiety and depression Surgical History Kidney transplant status "R 1984 and L 2012" Arteriovenous fistula removed History of esophagogastroduodenoscopy (EGD) History of colonoscopy [place] teeth removed Family History Father Diabetes Kidney disease Hypertension Family history of diabetes mellitus Mother Kidney disease Hypertension Sister Ulcerative colitis Other No family history of adverse response to anesthesia Denies family history of Ovarian cancer Prostate cancer Breast cancer Lung cancer Stroke Social History Smoking Status: Never smoker Tobacco Type: Cigarettes Age Started Using Tobacco: 14; Age Quit Using Tobacco: 32; packs per day: 0.5; Second Hand Exposure: No; Do You Dip or Chew Tobacco: No; Hx Alcohol Use: No Hx Substance Use: No Preferred Language: Northern Irish Communication Ability: Effective Visual Impairment: Limited Hearing Ability: Normal 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 Beliefs That Will Affect Care: None marital status: Current Living Situation: Alone current occupational status: employed and disabled current occupation: part-time How many Children do You have: 1 Feels Safe at Home: Yes Childhood Exposure to Second-Hand Smoke: No Diet: regular caffeine: Yes during the past year weight has: remained stable Dental Care, Regularly: No Physical Activity Frequency: Daily Seatbelt Use: always Sunscreen Use: No Assistive Devices: None Allergies Allergies Allergy/AdvReac Type Severity Reaction Status Date / Time minoxidil AdvReac Intermediate priapism Verified 11/29/24 16:25 terazosin AdvReac Intermediate priapism Verified 11/29/24 16:25 Home Meds Home Medications Medication Instructions Recorded Confirmed azathioprine 50 mg tablet 25 mg PO DAILY 01/08/24 12/06/24 prednisone 5 mg tablet 5 mg PO DAILY 01/08/24 12/06/24 sulfamethoxazole 400 1 tab PO .three times a week 01/08/24 12/06/24 mg-trimethoprim 80 mg tablet tacrolimus 1 mg capsule, 2 mg PO DAILY 01/08/24 12/06/24 immediate-release tacrolimus 1 mg capsule, 1 mg HS 11/26/24 12/06/24 immediate-release Previous Rx's Medication Instructions Recorded pantoprazole 40 mg tablet,delayed 40 mg PO BID #180 tabs 05/04/24 release clonidine HCl 0.2 mg tablet 0.2 mg PO TID #270 tabs 08/16/24 carvedilol 25 mg tablet 25 mg PO BID #180 tabs 10/07/24 hydroxyzine HCl 25 mg tablet 25 mg PO TID PRN anxiety #60 tabs 10/28/24 mirtazapine 15 mg tablet 15 mg PO HS 30 days #30 tabs 11/28/24 polyethylene glycol 3350 17 gram 17 g PO TID #100 ea 11/28/24 oral powder packet polyethylene glycol 3350 17 gram 17 g PO TID 30 days #90 ea 11/28/24 oral powder packet (Miralax) Results & Data (ED) Vital Signs Vital Signs - 24 hr 12/06/24 09:06 12/06/24 09:21 12/06/24 09:39 Temperature 36.8 C Temperature Source Oral Pulse Rate 61 61 Pulse Rate [Apical] Pulse Rhythm Regular Pulse Strength Normal Pulse Strength [Apical] Respiratory Rate 19 Respiratory Effort / Characteristics Non-Labored Spontaneous Respiratory Depth Normal Respiratory Pattern Blood Pressure 186/113 H Blood Pressure [Right Radial Artery] Blood Pressure Mean 137 Blood Pressure Mean [Right Radial Artery] Pulse Oximetry 100 99 Oxygen Delivery Method Room Air Room Air Sepsis Recent Fever Within 48 Hours No Sepsis New/Unexplained Change in Mental Status No Sepsis Action Taken by Nursing No Action Required 12/06/24 10:34 Temperature Temperature Source Pulse Rate Pulse Rate [Apical] 62 Pulse Rhythm Pulse Strength Pulse Strength [Apical] Normal Respiratory Rate 18 Respiratory Effort / Characteristics Non-Labored Spontaneous Respiratory Depth Normal Respiratory Pattern Regular Blood Pressure Blood Pressure [Right Radial Artery] 174/116 H Blood Pressure Mean Blood Pressure Mean [Right Radial Artery] 135 Pulse Oximetry 100 Oxygen Delivery Method Room Air Sepsis Recent Fever Within 48 Hours Sepsis New/Unexplained Change in Mental Status Sepsis Action Taken by Nursing Laboratory Data 12/06/24 10:08 12/06/24 10:08 Lab Results 12/06/24 12/06/24 Range/Units 10:08 10:50 WBC 13.07 H (4.8-10.8) K/ul RBC 4.98 (4.70-6.10) M/uL Hgb 14.1 (14.0-18.0) g/dl Hct 41.5 L (42.0-52.0) % MCV 83.3 (80.0-100.0) fL MCH 28.3 (25.0-34.0) pg MCHC 34.0 (32.0-36.0) g/dL RDW Std Deviation 43.0 (36.4-46.3) fL RDW Coeff of [place] 14.2 (11.5-14.5) % Plt Count 181 (130-400) K/uL MPV 12.2 (9.4-12.4) fL Immature Gran % (Auto) 0.5 % Neut % (Auto) 87.9 % Lymph % (Auto) 5.7 % [place] % (Auto) 4.9 % Eos % (Auto) 0.5 % Baso % (Auto) 0.5 % Neut # (Auto) 11.48 H (1.40-6.50) K/uL Lymph # (Auto) 0.75 L (1.20-3.40) K/uL [place] # (Auto) 0.64 H (0.11-0.59) K/uL Eos # (Auto) 0.07 (0.00-0.50) K/uL Baso # (Auto) 0.07 (0.00-0.20) K/uL Immature Gran # (Auto) 0.06 (0.01-0.20) K/uL Sodium 134 L (136-145) mmol/L Potassium 5.4 H (3.5-5.1) mmol/L Chloride 101 (98-107) mmol/L Carbon Dioxide 21 (21-32) mmol/L Anion Gap 12 H (3-11) BUN 36 H (6-23) mg/dl Creatinine 2.75 H (0.6-1.4) mg/dl Est Cr Clr Drug Dosing 29.0 ml/min eGFR 27.92 BUN/Creatinine Ratio 13.1 (10-20) Glucose 178 H (70-99(Fasting)) mg/dl Calcium 12.0 H (8.6-10.3) mg/dl Magnesium 1.3 L (1.7-2.4) mg/dl Total Bilirubin 1.1 H (0.2-1.0) mg/dl AST 40 H (13-39) U/L ALT 123 H (7-52) U/L Alkaline Phosphatase 166 H (34-104) U/L Troponin I High Sens 8.3 (0-20) pg/ml Total Protein 8.2 (6.0-8.3) gm/dl Albumin 5.0 (3.4-5.0) gm/dl Globulin 3.2 (2.5-4.0) gm/dl Albumin/Globulin Ratio 1.6 (0.9-2) Lipase 49 (11-82) U/L Urine Color Yellow Urine Appearance Clear (Clear) Urine pH 8.5 H (4.5-7.5) Ur Specific [place] 1.001 (1.000-1.030) Urine Protein 1+ H (Negative) Urine Glucose (UA) 1+ H (Negative) Urine Ketones 2+ H (Negative) Urine Blood Trace H (Negative) Urine Nitrite Negative (Negative) Urine Bilirubin Negative (Negative) Urine Urobilinogen Negative (Negative) Ur Leukocyte Esterase Negative (Negative) Urine WBC (Auto) 0-5 (0-5) /hpf Urine RBC (Auto) 0-2 (0-2) /hpf U Hyaline Cast (Auto) 0-2 (0-2) /lpf U Epithel Cells (Auto) 0-2 (0-2) /hpf Urine Bacteria (Auto) None Seen (None Seen) Urine Comment Administered Medications Magnesium Sulfate/Dextrose (Magnesium Sulfate / D5w) 1 gm in 100 mls @ 100 mls/hr IV NOW STA Stop: 12/06/24 12:09 Last Admin: 12/06/24 11:21 Dose: 100 mls/hr Documented By: ERICKA Discontinued Medications Dextrose (Dextrose 50% 50 Ml Syringe) 50 ml IV NOW ONE Stop: 12/06/24 11:11 Last Admin: 12/06/24 11:19 Dose: 50 ml Documented By: ERICKA Diphenhydramine HCl (Diphenhydramine 50 Mg/Ml Vial) 25 mg IV NOW STA Stop: 12/06/24 09:48 Last Admin: 12/06/24 10:03 Dose: 25 mg Documented By: ÁNGEL Sodium Chloride (Nss) 1,000 mls @ 999 mls/hr IV .Q1H1M ONE Stop: 12/06/24 10:47 Last Admin: 12/06/24 10:08 Dose: 999 mls/hr Documented By: ÁNGEL Prochlorperazine (Compazine) 1 mls @ 1 mls/min IV ONE ONE Stop: 12/06/24 09:48 Last Admin: 12/06/24 10:03 Dose: 1 mls/min Documented By: ÁNGEL Acetaminophen (Ofirmev) 1,000 mg in 100 mls @ 400 mls/hr IV NOW STA Stop: 12/06/24 10:31 Last Infusion: 12/06/24 11:18 Dose: Infused Documented By: Admin: 12/06/24 10:33 Dose: 400 mls/hr Documented By: ÁNGEL Insulin Human Regular (Novolin-R Insulin Per Unit Charge) 5 units IV NOW STA Stop: 12/06/24 11:11 Last Admin: 12/06/24 11:21 Dose: 5 units Documented By: ERICKA Co-signed By: MESERET Imaging Data Radiologist's Impression: Abdomen/Pelvis CT 12/06/24 09:[address] WITHOUT CONTRAST CT DOSE: 429.72 mGy.cm HISTORY: N/V/abd pain TECHNIQUE: Multiaxial CT images of the abdomen and pelvis were performed without contrast. A dose lowering technique was utilized adhering to the principles of ALARA. COMPARISON STUDY: 11/25/2024 FINDINGS: ABDOMEN: Liver, gallbladder, spleen, pancreas, and adrenal glands have an unremarkable non-IV contrast appearance. Stable severe atrophy of the [place] kidneys. There are scattered atherosclerotic calcifications. No abdominal aortic aneurysm. Pelvis: Stable atrophic left pelvic transplant kidney. Right pelvic transplant kidney has normal cortical thickness and no hydronephrosis. No peritransplant fluid seen or inflammation. Urinary bladder is mildly distended. Prostate is enlarged. There are a few colonic diverticula without evidence of acute diverticulitis. There is mild retained stool. No bowel inflammation or obstruction seen. No free fluid, free air, or abscess. No enlarged adenopathy. Osseous structures: No acute osseous findings. IMPRESSION: No acute findings. ACT 112: Negative or not required by law. The above report was generated using voice recognition software. It may contain grammatical, syntax or spelling errors. Electronically signed by: Servando Cortes M.D. 12/06/2024 10:35 AM Discharge Plan Visit Data Chief Complaint: Vomiting Stated Complaint: NAUSEA, VOMITING, AB & BACK PAIN ED Provider: Nesha Damon Discharge Problem: Nausea & vomiting, Acute hyperkalemia, Abdominal pain, Transaminitis, Hypomagnesemia Condition: Fair Forms Stand Alone Forms: My [facility] [employer] Prescriptions Prescriptions: No Action pantoprazole 40 mg tablet,delayed release (DR/EC) 40 mg PO BID Qty: 180 3RF clonidine HCl 0.2 mg tablet 0.2 mg PO TID Qty: 270 3RF carvedilol 25 mg tablet 25 mg PO BID Qty: 180 3RF prednisone 5 mg tablet 5 mg PO DAILY azathioprine 50 mg tablet 25 mg PO DAILY tacrolimus 1 mg capsule 2 mg PO DAILY sulfamethoxazole-trimethoprim 400-80 mg tablet 1 tab PO .three times a week Rx Instructions: Friday, Friday and Friday hydroxyzine HCl 25 mg tablet 25 mg PO TID PRN (Reason: anxiety) Qty: 60 2RF tacrolimus 1 mg capsule 1 mg HS polyethylene glycol 3350 [Miralax] 17 gram Powder In Packet 17 g PO TID 30 Days Qty: 90 0RF polyethylene glycol 3350 17 gram powder in packet 17 g PO TID Qty: 100 0RF Rx Instructions: 17g (one capful) 3 times a day, may adjust as needed in order to achieve one soft and formed BM per day mirtazapine 15 mg tablet 15 mg PO HS 30 Days Qty: 30 0RF Referrals Referrals: Kelechi Bennett III, CRNP [Primary Care Provider] -
--- OUTSIDE RECORDS SUMMARY | 2024-12-06 10:00 | External Medical Summary | Summary of Care ---
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 Role Phone Unavailable Primary Care Provider Unavailabl e Reason for Visit * Reason Onset Date Comments Follow Up 11/29/2024 Encounter Details Date Type Department Care Team ([facility] st Contact Info) Description 11/29/2024 Telephone Nephrology, Cammie Garcia [address] [place] [address] Delicia Brambila MD [address] [facility] [place] [address] Follow Up Allergies Active Allergy Reactions Criticality Noted Date Comments Minoxidil 02/13/2016 Terazosin 02/13/2016 documented as of this encounter (statuses as of 11/30/2024) Medications Calcium Carbonate Antacid 500 MG chewable tablet Take 500 mg by mouth as needed for Heartburn. Active Cholecalciferol (VITAMIN D3) 3000 UNITS Tablet Take 3,000 Units by mouth daily. Active Aspirin 81 MG TabletIndications: ASCVD (arteriosclerotic cardiovascular disease) Take 1 Tab by mouth daily. 30 Tab 10/25/19 17 Active ALPRAZolam (XANAX) 0.5 MG TabletIndications: NESTOR (generalized anxiety disorder) Take 1 tab before dialysis 20 Tab 04/06/20 18 Active cinacalcet (SENSIPAR) 30 MG TabletIndications: evenings Take 2 Tabs by mouth daily. Indications: evenings 04/30/20 18 Active Patiromer Sorbitex Calcium (VELTASSA) 8.4 g PACK Take 8.4 g by mouth daily. 05/21/20 18 Active pantoprazole (PROTONIX) 40 MG TBEC Take 1 Tab by mouth 2 times a day. 60 Tab 03/26/20 19 Active metoclopramide (REGLAN) 10 MG TabletIndications: Gastroparesis take 1 tablet 3 times daily 30 minutes before meals. 90 Tab 03/26/20 19 Active cloNIDine (CATAPRES) 0.2 MG TabletIndications: Essential hypertension with goal blood pressure less than 140/90 Take 1 Tab by mouth 2 times a day. Per [facility] dc summary 10/17/17 60 Tab 03/26/20 19 Active gabapentin (NEURONTIN) 100 MG CapsuleIndications :NESTOR (generalized anxiety disorder),RLS (restless legs syndrome) Take 1 Cap by mouth at bedtime. 30 Cap 03/26/20 19 Active carvedilol (COREG) 25 MG TabletIndications: Essential hypertension with goal blood pressure less than 140/90 Take 1 Tab by mouth 2 times a day with morning and evening meals. 60 Tab 03/26/20 19 Active Velphoro 500 MG Oral Tablet Chewable (Sucroferric Oxyhydroxide) Take by mouth 3 times a day. Active hydrALAZINE HCl 50 MG Oral Tablet (APRESOLINE) Take 50 mg by mouth 2 times a day. Active Levothyroxine Sodium 25 MCG Oral Capsule (Tirosint) Take 25 mcg by mouth daily first thing in the morning. (at least 30 min prior to breakfast or other meds) Active PEG 7336-DVx-VrYry-NaC l-NaSulf 227.1 GM Oral Packet Please take according to instructions provided for colonoscopy prep. 1 Each 10/04/19 21 Active Apixaban 2.5 MG Oral Tablet (Eliquis)Indicatio ns:VTE (venous thromboembolism) Take 1 Tab by mouth 2 times a day. STOP TAKING COUMADIN (WARFARIN) 60 Tab 02/03/20 21 Active traZODone HCl 50 MG Oral Tablet (Desyrel)Indicatio ns:Primary insomnia TAKE 1 TABLET BY MOUTH EVERYDAY AT BEDTIME 30 Tab 05/07/20 21 Active Amitriptyline HCl 25 MG Oral Tablet (Elavil)Indication s:Persistent insomnia TAKE 1 TABLET BY MOUTH EVERYDAY AT BEDTIME 30 Tab 05/07/20 21 Active Sertraline HCl 100 MG Oral Tablet (Zoloft) TAKE 1 TABLET BY MOUTH EVERY DAY 30 Tab 05/14/20 21 Active documented as of this encounter (statuses as of 11/30/2024) Active Problems Problem Noted Date Diagnosed Date Food insecurity 02/26/2021 Overview: Per [facility] Protocol VTE (venous thromboembolism) 12/25/2020 Current episode of major dep ressive disorder without prior episode 04/21/2018 Gastroparesis 08/07/2016 Overview (08/07/2016): Uremia Persistent insomnia 08/07/2016 NESTOR (generalized anxiety disorder) 08/07/2016 History of pancreatitis 03/21/2016 Chronic bilateral low back pain with left-sided sciatica 03/21/2016 CKD (chronic kidney disease) requiring chronic d ialysis 08/05/2012 History of renal transplant 08/05/2012 Essential hypertension with goal blood pressure less than 140/90 08/05/2012 History of glomerulonephritis 08/05/2012 Coronary artery disease invo lving [place] coronary artery of [place] heart without angina pectoris documented as of this encounter (statuses as of 11/30/2024) Resolved Problems Problem Noted Date Diagnosed Date Resolved Date Priapism 07/31/2012 08/07/2016 ADVANCE DIRECTIVE INFORMATION 11/02/2007 05/24/2024 Overview (11/02/2007): No, Advance Directive brochure offered , patient declined. documented as of this encounter (statuses as of 11/30/2024) Immunizations Name Administration Dates Next Due Pneumococcal Conjugate Vaccine, 7 Valent 014 Pneumococcal Polysaccharide PPV23 (Pneumovax) Seasonal Influenza Vac., MDV, IM, 0.5 mL (Fluzon e) 04/05/2016 Seasonal Influenza, High Dos e, Trivalent, PF, IM (Fluzone HD) 04/24/2017 Seasonal Influenza, PF, 6 M & above, IM , (FluLaval or Fluzone) 05/14/2019,04/29/2018 TDAP (age 10 and older)(Boostrix) 02/12/2014 documented as of this encounter Social History Tobacco Use Types Packs/Day Years Used Date Smoking Tobacco: Former Cigarettes 0.5 6 0 01/20/2011 - 01/20/2017 Smokeless Tobacco: Former Comments:quit 4 weeks ago Alcohol Use Standard Drinks/Week Comments No 0 (1 standard drink = 0.6 oz pur e alcohol) PHQ-2 Answer Date Recorded PHQ-2 Score 0 02/24/2020 Hunger Vital Sign Answer Date Recorded Worried About Running Out of Food in the Last Ye ar Often true 02/24/2020 Ran Out of Food in the Last Year Often true 02/24/2020 Utilities Answer Date Recorded Do you have trouble paying y our heating, water, or electric bill? (Adult - for ages 18 years and over) Not on file 01/06/2024 Is your family able to pay t he heat, water, or electric bill? (Household - for ages 0-17 years) Not on file 01/06/2024 Does your family have access to good internet? (Household - for ages 0-17 years) Not on file 01/06/2024 Social Connections Answer Date Recorded How often do you feel lonely or isolated from those around you? (Adult - for ages 18 years and over) Not on file 01/06/2024 Sex and Gender Information Value Date Recorded Sex Assigned at Not on file Legal Sex Male 5:16 AM EST Gender Identity Not on file Sexual Orientation Not on file documented as of this encounter Miscellaneous Notes * Telephone Encounter - Claudia Lopez RN - 11/30/2024 8:46 AM EDT Attempted to contact pt. Message on machine says that he is not accepting calls at this time. Will send Letter regarding need for follow up . * Telephone Encounter - Claudia Lopez RN - 11/29/2024 4:22 PM EDT Attempted to call pt . Message on phone says this person is currently not accepting calls. Please try again later. Attempted x 3 with same message. * Telephone Encounter - Claudia Lopez RN - 11/29/2024 12:20 PM EDT LMAM with call back number. * Telephone Encounter - Claudia Lopez RN - 11/29/2024 10:16 AM EDT Attempted to contact pt via number listed. Unable to leave message. Will attempt to contact later today. * Telephone Encounter - Delicia Brambila MD - 11/29/2024 9:43 AM EDT Pt seen recently in [facility] during admission for protracted hyperkalemia, advanced kidney transplant malfunction in the setting of chronic gastroparesis/ frequent severe diarrhea. We checked an FK level >> true trough >> 15.5 Not clear how much neph follow up he's had with [facility] txplt; do not believe he's had community care for renal txplt. SUGGEST -contact pt to find out -is he still seeing [facility] txplt -- get their last visit note if he wants to follow w/ me as well -offer for him to see me in [facility] if he wishes -he likely will need specialized GI motility clinic at [facility] (if they have one) -- ask if he's ever been seen in [facility] like that for gastropareasis His tacro level was TOO high at [facility] (15.5; should be 4-6) >> could be part of problem w/ high K and poor kidney function Either f/u w/ [facility] or w/ me > if w/ me, pls get video visit on the books for me for tomorrow between 10 and 1; if w/ [facility], pls fax them that FK level documented in this encounter Plan of Treatment Health Maintenance Due Date Last Done Comments COVID-19 Vaccine (#1) 1983 Depression Monitoring 1990 TSH 1996 Pneumococcal Vaccine: Pediatrics (0 to 5 Years) and At-Risk Patients (6 to 18 Years and 19+ Years) (2 of 2 - PCV) 04/30/2019 04/30/2018 Cologuard 2023 Fecal Occult Blood Test 2023 Sigmoidoscopy 2023 DTap/Tdap Vaccines (2 - Td or Tdap) 02/13/2024 02/12/2014 Influenza Vaccine (FLU shot) (Season Ended) 2025 04/20/2021, 05/14/2019, 05/14/2019, Additional history exists Colonoscopy 01/29/2032 01/28/2022, 06/26/2018 Colorectal Cancer Screening 01/29/2032 EKG Completed 05/04/2022, 07/0 07/2021, 10/09/2021, Additional history exists HPV (Gardasil) Vaccine Aged Out No lo nger eligible based on patient's age to complete this topic MENINGOCOCCAL (MENACTRA/MENVEO) Aged Out No longer eligible based on patient's age to complete this topic Meningitis B Vaccine (Bexsero/Trumemba) Aged Out No longer eligible based on patient's age to complete this topic documented as of this encounter Medical Devices Not on filedocumented as of this encounter Advance Directives * Full Code (Latest Code Status on File) Date Activated Date Inactivated Comments 08/27/2012 2:42 AM 08/27/2012 6:28 PM This order ref lects the patients wishes and were consensually agreed upon. Question Answer Comments Discussion of Advance Directives occurred with: Patient * Full Code Date Activated Date Inactivated Comments 07/31/2012 9:25 PM 08/01/2012 2:09 PM This order r eflects the patients wishes and were consensually agreed upon. Question Answer Comments Discussion of Advance Directives occurred with: Not Discussed
--- OUTSIDE RECORDS SUMMARY | 2024-12-06 10:00 | External Medical Summary | Summary of Care ---
Author Name Unknown Organization [facility] Address [address] [place] [address] Phone [phone] Care Team Providers Care Unpaid Intern Name Role Phone Unavailable Primary Care Provider Unavailabl e Reason for Visit * Reason Onset Date Comments Follow Up 11/29/2024 Encounter Details Date Type Department Care Team ([facility] st Contact Info) Description 11/29/2024 Telephone Nephrology, Cammie Garcai [address] [place] [address] Delicia Brambila MD 200 [facility] [place] [address] Follow Up Allergies Active Allergy Reactions Criticality [...] by mouth 2 times a day. Per [facility] dc summary 10/17/17 60 Tab 03/26/20 19 [...] to breakfast or other meds) Active PEG 3137-UZk-GkUkv-NaC l-NaSulf 227.1 GM Oral Packet Please take [...] Diagnosed Date Food insecurity 02/26/2021 Overview: Per [facility] Protocol VTE (venous thromboembolism) 12/25/2020 Current [...] glomerulonephritis 08/05/2012 Coronary artery disease invo lving [place] coronary artery of [place] heart without angina pectoris documented as of [...] 9:43 AM EDT Pt seen recently in [facility] during admission for protracted hyperkalemia, advanced kidney transplant malfunction in the setting of chronic gastroparesis/ frequent severe diarrhea. We checked an FK level >> true trough >> 15.5 Not clear how much neph follow up he's had with [facility] txplt; do not believe he's had community care for renal txplt. SUGGEST -contact pt to find out -is he still seeing [facility] txplt -- get their last visit note if he wants to follow w/ me as well -offer for him to see me in [facility] if he wishes -he likely will need specialized GI motility clinic at [facility] (if they have one) -- ask if he's ever been seen in [facility] like that for gastropareasis His tacro level was TOO high at [facility] (15.5; should be 4-6) >> could be part of problem w/ high K and poor kidney function Either f/u w/ [facility] or w/ me > if w/ me, pls get video visit on the books for me for tomorrow between 10 and 1; if w/ [facility], pls fax them that FK level documented [...] Colorectal Cancer Screening 01/29/2032 EKG Completed 05/04/2022, 070 07/2021, 10/09/2021, Additional history exists HPV (Gardasil) [...]
--- OUTSIDE RECORDS SUMMARY | 2024-12-06 10:00 | External Medical Summary | Summary of Care ---
Author Name Unknown Organization [facility] Address [address] [facility] [address] Phone [phone] Care Team Providers Care Slurry Control Operator Helper Name Role Phone Unavailable Primary Care Provider Unavailabl e Reason for Visit * Reason Onset Date Comments Follow Up 11/29/2024 Encounter Details Date Type Department Care Team ([facility] st Contact Info) Description 11/29/2024 Telephone Nephrology, Cammie Garcia [address] [place] [address] Delicia Brambila MD 200 [facility] [place] [address] Follow Up Allergies Active Allergy Reactions Criticality Noted Date Comments Minoxidil 02/13/2016 Terazosin 02/13/2016 documented as of this encounter (statuses as of 11/29/2024) Medications Calcium Carbonate Antacid 500 MG chewable [...] by mouth 2 times a day. Per [facility] dc summary 10/17/17 60 Tab 03/26/20 19 [...] to breakfast or other meds) Active PEG 3835-AAy-GwNwl-NaC l-NaSulf 227.1 GM Oral Packet Please take [...] as of this encounter (statuses as of 11/29/2024) Active Problems Problem Noted Date Diagnosed Date Food insecurity 02/26/2021 Overview: Per [facility] Protocol VTE (venous thromboembolism) 12/25/2020 Current [...] glomerulonephritis 08/05/2012 Coronary artery disease invo lving [place] coronary artery of [place] heart without angina pectoris documented as of this encounter (statuses as of 11/29/2024) Resolved Problems Problem Noted Date Diagnosed Date Resolved Date Priapism 07/31/2012 08/07/2016 ADVANCE DIRECTIVE INFORMATION 11/02/2007 05/24/2024 Overview (11/02/2007): No, Advance Directive brochure offered , patient declined. documented as of this encounter (statuses as of 11/29/2024) Immunizations Name Administration Dates Next Due Pneumococcal [...] 9:43 AM EDT Pt seen recently in [facility] during admission for protracted hyperkalemia, advanced kidney [...] -[facility] -he likely will need specialized GI motility clinic at [facility] (if they have one) -- ask if he's ever been seen in [facility] like that for gastropareasis His tacro level was TOO high at [facility] (15.5; should be 4-6) >> could be [...]
--- OUTSIDE RECORDS SUMMARY | 2024-12-06 10:00 | External Medical Summary | Summary of Care ---
Author Name Unknown Organization [facility] Address [address] [facility] [place] [address] Phone [phone] Care Team Providers Care Roading Engineer Name Role Phone Unavailable Primary Care Provider Unavailabl e Reason for Visit * Reason Onset Date Comments Follow Up 11/29/2024 Encounter Details Date Type Department Care Team ([facility] st Contact Info) Description 11/29/2024 Telephone Nephrology, Cammie Garcia [address] [place] [address] Delicia Brambila MD 200 [facility] [place] [address] Follow Up Allergies Active Allergy Reactions Criticality [...] by mouth 2 times a day. Per [facility] dc summary 10/17/17 60 Tab 03/26/20 19 [...] to breakfast or other meds) Active PEG 2967-ADm-JfTwp-NaC l-NaSulf 227.1 GM Oral Packet Please take [...] Diagnosed Date Food insecurity 02/26/2021 Overview: Per [facility] Protocol VTE (venous thromboembolism) 12/25/2020 Current [...] glomerulonephritis 08/05/2012 Coronary artery disease invo lving [place] coronary artery of [place] heart without angina pectoris documented as of [...] 9:43 AM EDT Pt seen recently in [facility] during admission for protracted hyperkalemia, advanced kidney transplant malfunction in the setting of chronic gastroparesis/ frequent severe diarrhea. We checked an FK level >> true trough >> 15.5 Not clear how much neph follow up he's had with [facility] txplt; do not believe he's had community care for renal txplt. SUGGEST -contact pt to find out -is he still seeing [facility] txplt -- get their last visit note if he wants to follow w/ me as well -offer for him to see me in [facility] if he wishes -he likely will need specialized GI motility clinic at [facility] (if they have one) -- ask if he's ever been seen in [facility] like that for gastropareasis His tacro level was TOO high at [facility] (15.5; should be 4-6) >> could be part of problem w/ high K and poor kidney function Either f/u w/ [facility] or w/ me > if w/ me, pls get video visit on the books for me for tomorrow between 10 and 1; if w/ [facility], pls fax them that FK level [...]
--- OUTSIDE RECORDS SUMMARY | 2024-12-06 10:00 | External Medical Summary | Summary of Care ---
Author Name Unknown Organization [facility] Address [address] [place] [address] Phone [phone] Care Team Providers Care Oncology Physician Assistant Name Role Phone Unavailable Primary Care Provider Unavailabl e Reason for Visit * Reason Onset Date Comments Follow Up 11/29/2024 Encounter Details Date Type Department Care Team ([facility] st Contact Info) Description 11/29/2024 Telephone Nephrology, Cammie Garcia [address] [place] [address] Delicia Brambila MD 200 [facility] [place] [address] Follow Up Allergies Active Allergy Reactions Criticality [...] by mouth 2 times a day. Per [facility] dc summary 10/17/17 60 Tab [...] to breakfast or other meds) Active PEG 8794-ORa-IdMnn-NaC l-NaSulf 227.1 GM Oral Packet Please take [...] Diagnosed Date Food insecurity 02/26/2021 Overview: Per [facility] Protocol VTE (venous thromboembolism) 12/25/2020 Current [...] glomerulonephritis 08/05/2012 Coronary artery disease invo lving [place] coronary artery of [place] heart without angina pectoris documented as of [...] 9:43 AM EDT Pt seen recently in [facility] during admission for protracted hyperkalemia, advanced kidney transplant malfunction in the setting of chronic gastroparesis/ frequent severe diarrhea. We checked an FK level >> true trough >> 15.5 Not clear how much neph follow up he's had with [facility] txplt; do not believe he's had community care for renal txplt. SUGGEST -contact pt to find out -is he still seeing [facility] txplt -- get their last visit note if he wants to follow w/ me as well -offer for him to see me in [facility] if he wishes -he likely will need specialized GI motility clinic at [facility] (if they have one) -- ask if he's ever been seen in [facility] like that for gastropareasis His tacro level was TOO high at [facility] (15.5; should be 4-6) >> could be part of problem w/ high K and poor kidney function Either f/u w/ [facility] or w/ me > if w/ me, pls get video visit on the books for me for tomorrow between 10 and 1; if w/ [facility], pls fax them that FK level [...]
[2024-12-06] MEDS: diphenhydrAMINE 50 MG/ML VIAL IV STA (10:03)
[2024-12-06] MEDS: PROCHLORPERAZINE 1 ML IV ONE (10:03)
[2024-12-06] MEDS: SODIUM CHLORIDE 0.9% 1,000 ML IV ONE (10:08)
[2024-12-06 10:26] LABS: Basophils # (auto) 0.07 K/uL (0.00-0.20); Basophils % (auto) 0.5 %; Eosinophils # (auto) 0.07 K/uL (0.00-0.50); Eosinophils % (auto) 0.5 %; Hematocrit (blood only) 41.5 % (42.0-52.0); Hemoglobin 14.1 g/dl (14.0-18.0); Immature Granulocytes # (auto) 0.06 K/uL (0.01-0.20); Immature Granulocytes % (auto) 0.5 %; Lymphocytes # (auto) 0.75 K/uL (1.20-3.40); Lymphocytes % (auto) 5.7 %; Mean Corpuscular Hemoglobin 28.3 pg (25.0-34.0); Mean Corpuscular Volume 83.3 fL (80.0-100.0); Mean Platelet Volume 12.2 fL (9.4-12.4); Monocytes # (auto) 0.64 K/uL (0.11-0.59); Monocytes % (auto) 4.9 %; Neutrophils # (auto) 11.48 K/uL (1.40-6.50); Neutrophils % (auto) 87.9 %; Platelet Count 181 K/uL (130-400); RDW Coefficient of Variation 14.2 % (11.5-14.5); Red Blood Count 4.98 M/uL (4.70-6.10); White Blood Count 13.07 K/ul (4.8-10.8)
[2024-12-06] MEDS: ACETAMINOPHEN 1,000 MG/100 ML VIAL IV STA (10:33)
--- NOTE | 2024-12-06 10:36 | CT Scan Report ---
ABDOMEN AND PELVIS CT WITHOUT CONTRAST CT DOSE: 429.72 mGy.cm HISTORY: N/V/abd pain TECHNIQUE: Multiaxial CT images of the abdomen and pelvis were performed without contrast. A dose lo wering technique was utilized adhering to the principles of ALARA. COMPARISON STUDY: 11/25/2024 FINDINGS: ABDOMEN: Liver, gallbladder, spleen, pancreas, and adrenal glands have an unremarkable non-IV contras t appearance. Stable severe atrophy of [place] kidneys. There are scattered atherosclerotic calcif ications. No abdominal aortic aneurysm. Pelvis: Stable atrophic left pelvic transplant kidney. Right pelvic transplant kidney has normal kevin ical thickness and no hydronephrosis. No peritransplant fluid seen or inflammation. Urinary bladder i s mildly distended. Prostate is enlarged. There are a few colonic diverticula without evidence of acu te diverticulitis. There is mild retained stool. No bowel inflammation or obstruction seen. No free f luid, free air, or abscess. No enlarged adenopathy. Osseous structures: No acute osseous findings. IMPRESSION: No acute findings. ACT 112: Negative or not required by law. The above report was generated using voice recognition software. It may contain grammatical, syntax o r spelling errors. Electronically signed by: Servando Cortes M.D. 12/06/2024 10:35 AM
[2024-12-06 10:50] LABS: Albumin Globulin Ratio 1.6 (0.9-2); BUN Creatinine Ratio 13.1 (10-20); Bilirubin,Total 1.1 mg/dl (0.2-1.0); Globulin 3.2 gm/dl (2.5-4.0); Magnesium 1.3 mg/dl (1.7-2.4); Potassium 5.4 mmol/L (3.5-5.1); Total Protein 8.2 gm/dl (6.0-8.3)
[2024-12-06 10:55] LABS: Troponin I High Sensitivity 8.3 pg/ml (0-20)
[2024-12-06] MEDS: DEXTROSE 50% 50 ML SYRINGE IV ONE (11:19)
[2024-12-06] MEDS: MAGNESIUM SULFATE / D5W 1 GM/100 ML BAG IV STA (11:21)
[2024-12-06] MEDS: NovoLIN-R INSULIN PER UNIT CHARGE IV STA (11:21)
[2024-12-06 11:22] LABS: Appearance Urine Clear (Clear); Bacteria Urine Automated None Seen (None Seen); Bilirubin Urine Negative (Negative); Blood Urine Trace (Negative); Cast Urine Automated 0-2 /lpf (0-2); Color Urine Yellow; Epithelial Cell Urine Auto 0-2 /hpf (0-2); Glucose Urine UA 1+ (Negative); Ketones Urine 2+ (Negative); Leukocyte Esterase Urine Negative (Negative); Nitrite Urine Negative (Negative); Protein Urine 1+ (Negative); RBC Urine Automated 0-2 /hpf (0-2); Specific Gravity Urine 1.001 (1.000-1.030); Urobilinogen Urine Negative (Negative); WBC Urine Automated 0-5 /hpf (0-5); pH Urine 8.5 (4.5-7.5)
--- NOTE | 2024-12-06 11:41 | History & Physical Report ---
Date of Service December 06, 2024 Assessment & Plan (1) Nausea & vomiting: (2) Transaminitis: (3) Hypomagnesemia: (4) Acute hyperkalemia: Plan This patient is a 44-year-old male with PMH of ESRD s/p bilateral renal transplant who presented on 12/06 for intractable nausea, vomiting, and abdominal pain. #Intractable nausea and vomiting | epigastric pain IV Zofran and Compazine PRN NSS 1500 mL IV x 1 Continue IVF resuscitation with D5W + 75mEq sodium bicarb x 1 L Additional IVF as needed #Transaminitis Mild; AST 40, ALT 123, alk phos 166 on arrival Leukocytosis at 13.07 with neutrophil predominance RUQ ultrasound ordered to assess gallbladder Trend LFTs #ESRD s/p bilateral renal transplant w/ h/o transplant failure Follows with [facility], [place], operated by [facility] for renal transplant Renal function around baseline on arrival A/P CT without contrast revealed no acute findings Nephrology consult appreciated Hold Bactrim (normally taken on //) Critical tacrolimus lab value/elevated on lab draw 11/26) Will decrease dosage from 2 mg -> 1mg QAM; continue 1mg QPM Continue azathioprine Continue prednisone daily Low K diet #Hyperkalemia K 5.4 on arrival; trend q4h until WNL IV insulin 5u x 1 given in the ED If refractory, consider adding Lokelma or holding beta-blockers Albuterol PRN Low K diet #Hypercalcemia Noted; elevated calcium at 12.0 on arrival Despite mild hyperkalemia, will defer calcium gluconate at this time IVF resuscitation (as above) Trend calcium #Hypomagnesemia Magnesium 1.3 on arrival Magnesium sulfate 1 g IV x 3 Recheck a.m. mag #Gastroparesis Continue PPI and antiemetics PRN During transitional care visit on 11/29, OP referral made for gastric pacemaker #Borderline diabetes Last A1c 6.1% on 11/25/2024 T2DM diet BSG ACHS Adjust regimen as needed #Anxiety Continue nortriptyline and hydroxyzine PRN Lorazepam PRN (may also help with nausea) #HTN Continue carvedilol, hydralazine, clonidine Labetalol 5 mg IV PRN for persistent HTN with SBP >180 or DBP >120 #History of LUE DVT Noted; heparin for DVT PPx #CAD s/p stented coronary artery H/o 23 intracoronary stents at [place]; per cardiology notes, details are unknown Patient is not currently on aspirin or antiplatelet therapy Per patient, he was told to stop taking aspirin by his transplant team Disposition: Admit to [facility] telemetry VTE PPx: Heparin 5000 units SQ q12h History of Present Illness Chief Complaint: Abdominal pain, intractable N/V Primary Care Provider: Kelechi Bennett, III, [employer] Mr. Do is a 44-year-old male with PMH of ESRD s/p bilateral renal transplant (2 failed, most recent in March 2022), gastroparesis, CAD s/p stent, and GERD. He presented on 12/06 for worsening lower back pain, epigastric pain (worse on the right side), and intractable nausea/vomiting. Patient reports he felt good when he left the hospital on 11/28. Then a day after, he developed some nausea. This is slowly been getting worse throughout the week. Yesterday, he developed epigastric pain and bilateral low back pain around 1 PM. Patient did not take any pain medicine prior to coming to the hospital. He characterizes the pain as constant, sharp, and achy; he rates it 10/10 at worst, and 9/10 at present. No reported fevers at home. No prior history of gallbladder issues. No history of kidney stones. No recent change in diet. He has not been eating much since he got home from the hospital; reports he eats a few saltines a day, and half a sandwich. However over the past 24 hours, he has been unable to keep anything down except for his pills and sips of water. He has been taking Zofran at home for the nausea, but he is unsure if this helps. Additionally, he reports that diarrhea started yesterday morning; soft stool, brown in color, no blood in stool, no recent antibiotic use. No sick contacts to his knowledge. Patient took his regular morning medicine today. He denies smoking, tobacco use, recent alcohol use. Patient is hypertensive at 174/116 at time of admission; vitals otherwise stable. ED course: NSS 1500 mL IV Magnesium sulfate 1 g IV Compazine 1 [place] IV Diphenhydramine 25 mg IV Acetaminophen 1000 mg IV Insulin human regular 5 units IV + dextrose 50% ROS: Patient endorses epigastric pain, lower back pain, nausea, vomiting, diarrhea, Patient denies fever, chills, night-sweats, ELAM, chest pain, chest palpitations, SOB, pleuritic CP, hematemesis, changes in urinary habits, burning with urination, melena, or blood in the urine/stool. Allergies Allergy/AdvReac Type Severity Reaction Status Date / Time minoxidil AdvReac Intermediate priapism Verified 11/29/24 16:25 terazosin AdvReac Intermediate priapism Verified 11/29/24 16:25 Home Medications Medication Instructions Recorded Confirmed Type azathioprine 50 mg tablet 25 mg PO DAILY 01/08/24 12/06/24 History prednisone 5 mg tablet 5 mg PO DAILY 01/08/24 12/06/24 History sulfamethoxazole 400 1 tab PO .three times a week 01/08/24 12/06/24 History mg-trimethoprim 80 mg tablet tacrolimus 1 mg capsule, 2 mg PO DAILY 01/08/24 12/06/24 History immediate-release pantoprazole 40 mg tablet,delayed 40 mg PO BID #180 tabs 05/04/24 12/06/24 Rx release clonidine HCl 0.2 mg tablet 0.2 mg PO TID #270 tabs 08/16/24 12/06/24 Rx carvedilol 25 mg tablet 25 mg PO BID #180 tabs 10/07/24 12/06/24 Rx hydroxyzine HCl 25 mg tablet 25 mg PO TID PRN anxiety #60 tabs 10/28/24 12/06/24 Rx tacrolimus 1 mg capsule, 1 mg HS 11/26/24 12/06/24 History immediate-release mirtazapine 15 mg tablet 15 mg PO HS 30 days #30 tabs 11/28/24 12/06/24 Rx polyethylene glycol 3350 17 gram 17 g PO TID #100 ea 11/28/24 12/06/24 Rx oral powder packet polyethylene glycol 3350 17 gram 17 g PO TID 30 days #90 ea 11/28/24 12/06/24 Rx oral powder packet (Miralax) metoclopramide HCl 5 mg tablet 5 mg PO TID PRN Nausea 12/06/24 12/06/24 History Past Med/Surg History Problem List (Updated 12/06/24 @ 11:46 by Nesha Damon MD) Hypomagnesemia (Acute) Transaminitis (Acute) Abdominal pain (Acute) Acute hyperkalemia (Acute) Nausea & vomiting (Acute) Hyperkalemia Gastroenteritis [id number] kidney injury Acute hyperkalemia Stented coronary artery "stents x 2 in [place] in 2006 and 2010" Depression Anxiety (Chronic) History of kidney transplant (Chronic) Gastroparesis (Chronic) Insomnia (Chronic) HTN (hypertension) (Chronic) GERD (gastroesophageal reflux disease) (Chronic) CAD (coronary artery disease) (Chronic) Medical History ESRD (end stage renal disease) on dialysis Thrombocytopenia AV fistula occlusion Kidney transplant failure Left upper extremity deep vein thrombosis Ileus AV fistula LEFT BICEP Glomerulonephritis "BORN WITH" Arthritis Hx of pancreatitis Hypothyroidism Anxiety and depression Surgical History Kidney transplant status "R 1984 and L 2012" Arteriovenous fistula removed History of esophagogastroduodenoscopy (EGD) History of colonoscopy [place] teeth removed Family History Father Diabetes Kidney disease Hypertension Family history of diabetes mellitus Mother Kidney disease Hypertension Sister Ulcerative colitis Other No family history of adverse response to anesthesia Denies family history of Ovarian cancer Prostate cancer Breast cancer Lung cancer Stroke Social History Smoking Status: Former smoker Tobacco Type: Cigarettes Age Started Using Tobacco: 14; Age Quit Using Tobacco: 32; packs per day: 0.5; Second Hand Exposure: No; Do You Dip or Chew Tobacco: No; Tobacco Cessation Education Requested by Patient: No Hx Alcohol Use: No Hx Substance Use: No Preferred Language: Bermudian Communication Ability: Effective Visual Impairment: Limited Hearing Ability: Normal Health Outcomes Liaison Required: No Beliefs That Will Affect Care: None marital status: Current Living Situation: Alone current occupational status: employed and disabled current occupation: part-time How many Children do You have: 1 Other Information That Helps Us Care for You: No Feels Safe at Home: Yes Safety Concerns: Feels Safe At This Time Childhood Exposure to Second-Hand Smoke: No Diet: regular caffeine: Yes during the past year weight has: remained stable Dental Care, Regularly: No Physical Activity Frequency: Daily Seatbelt Use: always Sunscreen Use: No Assistive Devices: None Review of Systems Review of Systems: See HPI above Physical Exam Physical Exam: General: Moderate physical distress secondary to abdominal pain; non-toxic appearing; well-nourished; cooperative; SpO2 98% on RA HEENT: normocephalic, atraumatic; no scleral icterus; PERRLA; vision and hearing grossly intact Neck: supple; no lymphadenopathy; trachea midline Skin: warm, dry without signs of tenting; no cyanosis; no rashes, bruising, lesions, or erythema noted CV: chest wall NTP; RRR; S1/S2 normal; no murmurs/rubs/gallops; pulses intact and symmetric at radial, DP, and PT Lungs: no acute respiratory distress; symmetrical chest wall expansion; clear breath sounds across all lung edwards w/o adventitious sounds; no wheezing ABD: Soft; positive RUQ and RLQ pain; positive Gunter sign; BS present; no rebound/guarding; no distention; no rashes or bruising noted on the abdomen or flanks bilaterally Back: Upper spine NTP; lower spine NTP, however he does endorse bilateral CVA tenderness to percussion MSK: no tics or fasciculations; no edema noted in the LEs b/l, nonerythematous Neuro: A&Ox3; normal mood and affect; fluent speech; no focal deficits; sensation intact and symmetric in all extremities bilaterally Results & Data Results & Data Vital Signs (Past 12 Hours) Vital Signs Temp Pulse Pulse Resp BP BP Pulse Ox 12/06/24 10:34 62 18 174/116 H 100 12/06/24 09:39 99 12/06/24 09:21 61 12/06/24 09:06 36.8 C 61 19 186/113 H 100 O2 Del Method 12/06/24 10:34 Room Air 12/06/24 09:39 Room Air 12/06/24 09:21 12/06/24 09:06 Room Air Laboratory Results Abnormal lab results 12/06/24 12/06/24 Range/Units 10:08 10:50 WBC 13.07 H (4.8-10.8) K/ul Hct 41.5 L (42.0-52.0) % Neut # (Auto) 11.48 H (1.40-6.50) K/uL Lymph # (Auto) 0.75 L (1.20-3.40) K/uL [place] # (Auto) 0.64 H (0.11-0.59) K/uL Sodium 134 L (136-145) mmol/L Potassium 5.4 H (3.5-5.1) mmol/L Anion Gap 12 H (3-11) BUN 36 H (6-23) mg/dl Creatinine 2.75 H (0.6-1.4) mg/dl Glucose 178 H (70-99(Fasting)) mg/dl Calcium 12.0 H (8.6-10.3) mg/dl Magnesium 1.3 L (1.7-2.4) mg/dl Total Bilirubin 1.1 H (0.2-1.0) mg/dl AST 40 H (13-39) U/L ALT 123 H (7-52) U/L Alkaline Phosphatase 166 H (34-104) U/L Urine pH 8.5 H (4.5-7.5) Urine Protein 1+ H (Negative) Urine Glucose (UA) 1+ H (Negative) Urine Ketones 2+ H (Negative) Urine Blood Trace H (Negative) Diagnostic Findings Abdomen/Pelvis CT 12/06/24 09:[address] WITHOUT CONTRAST CT DOSE: 429.72 mGy.cm HISTORY: N/V/abd pain TECHNIQUE: Multiaxial CT images of the abdomen and pelvis were performed without contrast. A dose lowering technique was utilized adhering to the principles of ALARA. COMPARISON STUDY: 11/25/2024 FINDINGS: ABDOMEN: Liver, gallbladder, spleen, pancreas, and adrenal glands have an unremarkable non-IV contrast appearance. Stable severe atrophy of the [place] kidneys. There are scattered atherosclerotic calcifications. No abdominal aortic aneurysm. Pelvis: Stable atrophic left pelvic transplant kidney. Right pelvic transplant kidney has normal cortical thickness and no hydronephrosis. No peritransplant fluid seen or inflammation. Urinary bladder is mildly distended. Prostate is enlarged. There are a few colonic diverticula without evidence of acute diverticulitis. There is mild retained stool. No bowel inflammation or obstruction seen. No free fluid, free air, or abscess. No enlarged adenopathy. Osseous structures: No acute osseous findings. IMPRESSION: No acute findings. ACT 112: Negative or not required by law. The above report was generated using voice recognition software. It may contain grammatical, syntax or spelling errors. Electronically signed by: Servando Cortes M.D. 12/06/2024 10:35 AM ECG Additional Comments: ECG ordered, pending Code Status & VTE Plan Code Status Full code VTE Prophylaxis Plan VTE Prophylaxis will be ordered: Yes Supervising Physician Co-Signing Physician Notes ETHAN Flores Note: I personally saw and examined the patient. I verified all painting points and agree with ETHAN Cool with the following exceptions and/or additions: S-Pt here with acute on chronic daily N/V. Dealing with gastroparesis for many years. epigastric abd pain and heartburn seem to be worsening. History and ROS otherwise as above I discussed his care with Dr. Allen of Nephrology O- Vitals reviewed Gen: [AAOx3, NAD] HEENT: [anicteric sclerae, EOMI] CV: [RRR no mgr nl S1S2] Pulm: [CTAB no wcr] Abd: [+BS soft +TTP epigastric and RUQ area without guarding or rebound, ND no masses or hernias] Ext: [no edema] Skin: [no rashes, warm/dry] Neuro: [full strength throughout] CBC, BMP, CT A/P, RUQ US, ECG reviewed A/P-44 yo male here with ntractable N/V from gastroparesis but with elevated LFTs, need to further assess for GB issues-RUQ US neg except for GB sludge--> consult Surgery to see about GB issues, consider HIDA scan. FOllow LFTs Make reglan 5mg IV tid scheduled Decrease tacrolimus dose and may help with hyperkalemia. Also hold Bactrim and consider replacement for PJP proph-dapsone vs atovaquone vs pentamidine? PG Care Time/CCT Total # of Minutes Spent Total Time Spent with Patient: Total time spent is greater than 50% in coordination of care (as documented) at patient's floor/unit and/or counseling patient: Coding [place] [address] INT INP/OBS CARE 3/75MIN Patient Type Established Medical Decision Making High Complexity Diagnoses Nausea & vomiting R11.2 Transaminitis R74.01 Hypomagnesemia E83.42 Acute hyperkalemia E87.5
[2024-12-06] MEDS: SODIUM CHLORIDE 0.9% 500 ML IV ONE (12:39)
[2024-12-06] MEDS: MAGNESIUM SULFATE / D5W 1 GM/100 ML BAG IV SCH (12:40)
[2024-12-06] MEDS: LORazepam 2 MG/1 ML VIAL IV STA (12:40)
[2024-12-06] MEDS ORDERED: LABETALOL HCL IV 5 MG/ML 20ML IV PRN (12:53)
--- NOTE | 2024-12-06 13:35 | Ultrasound Report ---
ABDOMINAL ULTRASOUND, RIGHT UPPER QUADRANT HISTORY: Elevated transaminase; abd pain. COMPARISON: CT 12/06/2024 FINDINGS: Pancreas: The pancreas demonstrates a normal echotexture. Liver: Unremarkable. Patent portal vein. Gallbladder: No gallbladder wall thickening. Intraluminal echogenic debris/sludge. No gallstones. CBD: 3 mm Right [place] kidney: Not well visualized secondary to marked atrophy. Transplanted kidney within the right hemipelvis demonstrates mild pelvocaliectasis which is unchanged from the prior study. IMPRESSION: 1. No acute right upper quadrant abnormality. 2. Gallbladder sludge. 3. Severe atrophy of the [place] right kidney. 4. Mild unchanged pelvocaliectasis of the right pelvic renal transplant. ACT 112: Negative or not required by law. Electronically signed by: Kade Ferreira M.D. 12/06/2024 1:34 PM
[2024-12-06] MEDS ORDERED: GLUCOSE 40% GEL 15 GM TUBE PO PRN (13:52)
[2024-12-06] MEDS ORDERED: MELATONIN 3 MG TAB PO PRN (13:52)
[2024-12-06] MEDS ORDERED: CARBOHYDRATES FOR HYPOGLYCEMIA PO PRN (13:52)
[2024-12-06] MEDS ORDERED: PROCHLORPERAZINE 5 MG in SYRINGE 4 ML IV PRN (13:52)
[2024-12-06] MEDS ORDERED: DEXTROSE 50% 50 ML SYRINGE IV PRN (13:52)
[2024-12-06] MEDS ORDERED: GLUCOSE 10 TAB/TUBE PO PRN (13:52)
[2024-12-06] MEDS ORDERED: ACETAMINOPHEN 325 MG TAB PO PRN (13:52)
[2024-12-06] MEDS ORDERED: GLUCAGON FOR INJ 1 MG VIAL SQ PRN (13:52)
[2024-12-06] MEDS: HYDROmorphone INJ 0.5 MG/0.5 ML SYR IV STA (14:30)
[2024-12-06 14:57] LABS: BUN Creatinine Ratio 13.8 (10-20); Calcium 10.8 mg/dl (8.6-10.3); Creatinine Clr Calc Pharmacy 32.4 ml/min
[2024-12-06] MEDS: SODIUM BICARBONATE 8.4% 75 MEQ in DEXTROSE 5% 1,000 ML IV SCH (15:30)
[2024-12-06] MEDS: POLYETHYLENE (MIRALAX) 17 GM PACK PO SCH ×2 (15:31)
[2024-12-06] MEDS: cloNIDine HCL 0.1 MG TAB PO SCH (15:32)
--- NOTE | 2024-12-06 15:47 | Electrocardiogram Report ---
Test Reason : Blood Pressure : */* mmHG Vent. Rate : 60 BPM Atrial Rate : 60 BPM P-R Int : 152 ms QRS Dur : 76 ms QT Int : 426 ms P-R-T Axes : 54 81 86 degrees QTcB Int : 426 ms Normal sinus rhythm Normal ECG When compared with ECG of 28-Nov-2024 06:21, No significant change was found Confirmed by Harvinder Julien ([id number]) on 12/06/2024 3:47:07 PM Referred By: REFERRED SELF Confirmed By: Harvinder Julien
[2024-12-06] MEDS: SODIUM CHLORIDE 0.9% 1,000 ML IV SCH (16:09)
[2024-12-06] MEDS: HYDROmorphone INJ 0.5 MG/0.5 ML SYR IV PRN ×2 (18:16→22:29)
[2024-12-06 18:34] LABS: BUN Creatinine Ratio 12.1 (10-20); Calcium 10.7 mg/dl (8.6-10.3); Potassium 4.5 mmol/L (3.5-5.1)
--- NOTE | 2024-12-06 19:20 | Surgery Consultation ---
Date of Consultation December 06, 2024 Assessment & Plan (1) Abdominal pain: Patient with upper epigastric and RUQ abdominal pain who was found to have an elevated WBC and transaminitis along with US findings of gallbladder sludge. The patient was seen and evaluated this evening at bedside. He does have some TTP in the RUQ and epigastric region but otherwise is nontoxic appearing. The patient does have a significant history of gastroparesis and GERD and has suffered from upper abdominal pain for years and has needed EGDs and dilations in the past. The patient does explain having issues with tolerating food and does feel full/burning reflux very quickly after eating any type of food along with pain that does radiate into his RUQ and back at times. Discussed patient's case with attending surgeon, Dr. Sierra, and from a surgical standpoint recommend the following: -Keep patient NPO for now -Unclear if patient's symptoms are from acute cholecystitis however patient with elevated WBC and LFTs. HIDA scan ordered for tomorrow morning to further evaluate for acute cholecystitis and repeat LFTs are ordered. If LFTs remain elevated, would recommend MRCP as well to evaluate for possible choledocholithiasis. -Due to patient's hx of GERD and gastroparesis would also recommend GI consult while inpatient . -Continue medical management per primary team, surgery will continue to follow and will provide further recommendations as patient's case unfolds. Supervising Physician Co-Signing Physician Notes pnt d/w MARY, labs and imaging reviewed, agree w/ above. H/O renal transplants, admitted with epigastric pain and elevated lfts. RUQUS and ct personally reviewed and interpreted, agree w/ GB sludge, no cholecystitis. order HIDA, repeat lfts. would need to d/w tranplant center if they would prefer to perform surgery there if necessary. History of Present Illness Reason for Consultation: epigastric abominal pain History of Present Illness The patient is a 44-year-old male with a PMH of ESRD s/p b/l renal transplants (with the most recent in March 2022), gastroparesis, CAD s/p stent, and GERD who presented to the emergency room this afternoon with complaints of epigastric abdominal pain, N/V, and back pain. The patient states that he has suffered for years with issues of upper abdominal pain, severe gastroparesis, GERD, and issues with tolerating food and makes it difficult for him to tolerate any sort of "real meal". He states he feels full quickly after eating and describes having a burning reflux feeling most times after eating any sort of food. The patient in the past has needed EGDs and esophageal dilation and states he was supposed to have an EGD last week however he was in the hospital and was unable to get this done. However, over the last few days the patient states he started with epigastric and back pain that has progressively gotten worse. He states the pain has been constant and severe in nature. The pain does radiate into the RUQ and into his back at times. He has had associated nausea and vomiting and has not had anything to eat since yesterday. He denies any associated fevers, chills, or changes in bowel habits since the onset of his symptoms. The patient was worked up in the emergency room and labs revealed elevated WBC at 13 and transaminitis along with imaging concerning for sludge in the gallbladder. The patient was seen and evaluated this evening at bedside, he is resting comfortably, VSS, and is nontoxic appearing. He states after receiving pain and antiemetic medication he is feeling better than time of admission. The patient on exam does have some TTP in the RUQ and epigastric pain. The patient states he has had 3 kidney tra nsplants in the past and otherwise denies any other abdominal surgeries. Allergies Allergy/AdvReac Type Severity Reaction Status Date / Time minoxidil AdvReac Intermediate priapism Verified 11/29/24 16:25 terazosin AdvReac Intermediate priapism Verified 11/29/24 16:25 Home Medications Medication Instructions Recorded Confirmed Type azathioprine 50 mg tablet 25 mg PO DAILY 01/08/24 12/06/24 History prednisone 5 mg tablet 5 mg PO DAILY 01/08/24 12/06/24 History sulfamethoxazole 400 1 tab PO .three times a week 01/08/24 12/06/24 History mg-trimethoprim 80 mg tablet tacrolimus 1 mg capsule, 2 mg PO DAILY 01/08/24 12/06/24 History immediate-release pantoprazole 40 mg tablet,delayed 40 mg PO BID #180 tabs 05/04/24 12/06/24 Rx release clonidine HCl 0.2 mg tablet 0.2 mg PO TID #270 tabs 01/27/25 05/19/25 Rx carvedilol 25 mg tablet 25 mg PO BID #180 tabs 10/07/24 12/06/24 Rx hydroxyzine HCl 25 mg tablet 25 mg PO TID PRN anxiety #60 tabs 10/28/24 12/06/24 Rx tacrolimus 1 mg capsule, 1 mg HS 11/26/24 12/06/24 History immediate-release mirtazapine 15 mg tablet 15 mg PO HS 30 days #30 tabs 11/28/24 12/06/24 Rx polyethylene glycol 3350 17 gram 17 g PO TID #100 ea 11/28/24 12/06/24 Rx oral powder packet polyethylene glycol 3350 17 gram 17 g PO TID 30 days #90 ea 11/28/24 12/06/24 Rx oral powder packet (Miralax) metoclopramide HCl 5 mg tablet 5 mg PO TID PRN Nausea 12/06/24 12/06/24 History Patient History Medical History ESRD (end stage renal disease) on dialysis Thrombocytopenia AV fistula occlusion Kidney transplant failure Left upper extremity deep vein thrombosis Ileus AV fistula LEFT BICEP Glomerulonephritis "BORN WITH" Arthritis Hx of pancreatitis Hypothyroidism Anxiety and depression Surgical History Kidney transplant status "R 1984 and L 2012" Arteriovenous fistula removed History of esophagogastroduodenoscopy (EGD) History of colonoscopy Palms teeth removed Family History Father Diabetes Kidney disease Hypertension Family history of diabetes mellitus Mother Kidney disease Hypertension Sister Ulcerative colitis Other No family history of adverse response to anesthesia Denies family history of Ovarian cancer Prostate cancer Breast cancer Lung cancer Stroke Social History Smoking Status: Former smoker Tobacco Type: Cigarettes Age Started Using Tobacco: 14; Age Quit Using Tobacco: 32; packs per day: 0.5; Second Hand Exposure: No; Do You Dip or Chew Tobacco: No; Tobacco Cessation Education Requested by Patient: No Hx Alcohol Use: No Hx Substance Use: No Preferred Language: Turkish Communication Ability: Effective Visual Impairment: Limited Hearing Ability: Normal Spin Tank Tender Required: No Beliefs That Will Affect Care: None marital status: Current Living Situation: Alone current occupational status: employed and disabled current occupation: part-time How many Children do You have: 1 Other Information That Helps Us Care for You: No Feels Safe at Home: Yes Safety Concerns: Feels Safe At This Time Childhood Exposure to Second-Hand Smoke: No Diet: regular caffeine: Yes during the past year weight has: remained stable Dental Care, Regularly: No Physical Activity Frequency: Daily Seatbelt Use: always Sunscreen Use: No Assistive Devices: None Review of Systems Constitutional: no fever, no chills and no sweats Respiratory: no cough and no dyspnea Cardiovascular: no chest pain, no palpitations and no syncope Gastrointestinal: + abdominal pain, + early satiety, + hea rtburn, + nausea and + vomiting; no change in bowel habits and no blood in stools Physical Exam Constitutional: WD/WN, vitals as above Respiratory: normal respiratory effort, lungs clear to auscultation Cardiovascular: RRR, no murmur, no edema Gastrointestinal (Abdomen): Abdomen soft, nondistended, TTP in the RUQ and epigastric region. No rebound, guarding, or signs of peritonitis +old midline and b/l groin scars appreci ated. Skin: no rashes, warm and dry Results & Data Vital Signs (Past 12 Hours) Vital Signs Temp Pulse Pulse Resp BP BP Pulse Ox 12/06/24 19:19 60 12/06/24 13:59 36.6 C 62 16 191/73 H 99 12/06/24 13:20 12/06/24 12:36 65 12 171/116 H 100 12/06/24 11:36 70 16 177/126 H 98 12/06/24 10:34 62 18 174/116 H 100 12/06/24 09:39 99 12/06/24 09:21 61 12/06/24 09:06 36.8 C 61 19 186/113 H 100 O2 Del Method 12/06/24 19:19 12/06/24 13:59 Room Air 12/06/24 13:20 Room Air 12/06/24 12:36 12/06/24 11:36 12/06/24 10:34 Room Air 12/06/24 09:39 Room Air 12/06/24 09:21 12/06/24 09:06 Room Air Diagnostic Findings ABDOMEN AND PELVIS CT WITHOUT CONTRAST CT DOSE: 429.72 mGy.cm HISTORY: N/V/abd pain TECHNIQUE: Multiaxial CT images of the abdomen and pelvis were performed without contrast. A dose lowering technique was utilized adhering to the principles of ALARA. COMPARISON STUDY: 11/25/2024 FINDINGS: ABDOMEN: Liver, gallbladder, spleen, pancreas, and adrenal glands have an unremarkable non-IV contrast appearance. Stable severe atrophy of the [place] kidneys. There are scattered atherosclerotic calcifications. No abdominal aortic aneurysm. Pelvis: Stable atrophic left pelvic transplant kidney. Right pelvic transplant kidney has normal cortical thickness and no hydronephrosis. No peritransplant fluid seen or inflammation. Urinary bladder is mildly distended. Prostate is enlarged. There are a few colonic diverticula without evidence of acute diverticulitis. There is mild retained stool. No bowel inflammation or obstruction seen. No free fluid, free air, or abscess. No enlarged adenopathy. Osseous structures: No acute osseous findings. IMPRESSION: No acute findings. ABDOMINAL ULTRASOUND, RIGHT UPPER QUADRANT HISTORY: Elevated transaminase; abd pain. COMPARISON: CT 12/06/2024 FINDINGS: Pancreas: The pancreas demonstrates a normal echotexture. Liver: Unremarkable. Patent portal vein. Gallbladder: No gallbladder wall thickening. Intraluminal echogenic debris/sludge. No gallstones. CBD: 3 mm Right [place] kidney: Not well visualized secondary to marked atrophy. Transplanted kidney within the right hemipelvis demonstrates mild pelvocaliectasis which is unchanged from the prior study. IMPRESSION: 1. No acute right upper quadrant abnormality. 2. Gallbladder sludge. 3. Severe atrophy of the [place] right kidney. 4. Mild unchanged pelvocaliectasis of the right pelvic renal transplant. PG Care Time/CCT Total # of Minutes Spent Total Time Spent with Patient: Total time spent is greater than 50% in coordination of care (as documented) at patient's floor/unit and/or counseling patient: [place] [address] INT INP/OBS CARE 1/40MIN Patient Type New Medical Decision Making Straight Forward Diagnoses Abdominal pain R10.9
[2024-12-06] MEDS: ONDANSETRON INJ 2 MG/ML 2 ML VIAL IV PRN (21:00)
[2024-12-06] MEDS: MIRTAZAPINE TAB 15 MG TAB PO SCH (21:15)
[2024-12-06] MEDS: carvediloL 25 MG TAB PO SCH (21:16)
[2024-12-06] MEDS: HEPARIN SOD 5,000 UNIT/0.5 ML VIAL SQ SCH (21:16)
[2024-12-06] MEDS: PANTOprazole 40 MG TAB PO SCH (21:16)
[2024-12-06] MEDS: ACETAMINOPHEN 325 MG TAB PO SCH (21:16)
[2024-12-06] MEDS: TACROLIMUS 1 MG CAP PO SCH (21:17)
[2024-12-06] MEDS: METOCLOPRAMIDE HCL INJ 5 MG/ML 2 ML VIAL IV ONE (22:22)
[2024-12-06] MEDS: hydrOXYzine HCl 25 MG TAB PO PRN (22:29)
--- OUTSIDE RECORDS SUMMARY | 2024-12-06 23:56 | External Medical Summary | Summary of Care ---
Author Name Unknown Organization [facility] Address [address] [facility] [place] [address] Phone [phone] Care Team Providers Care Residential Treatment Specialist Name Role Phone Unavailable Primary Care Provider Unavailabl e Reason for Visit * Reason Onset Date Comments Follow Up 12/03/2024 Encounter Details Date Type Department Care Team ([facility] st Contact Info) Description 12/03/2024 Results Follow-Up Nephrology, Cammie Garcia [address] [place] [address] Delicia Brambila MD [address] [facility] [place] [address] Follow Up Allergies Active Allergy Reactions Criticality Noted Date Comments Minoxidil 02/13/2016 Terazosin 02/13/2016 documented as of this encounter (statuses as of 12/06/2024) Medications Calcium Carbonate Antacid 500 MG chewable [...] by mouth 2 times a day. Per [facility] dc summary 10/17/17 60 Tab 03/26/20 19 [...] to breakfast or other meds) Active PEG [id number]-[id number]-NaC l-NaSulf 227.1 GM Oral Packet Please take [...] as of this encounter (statuses as of 12/06/2024) Active Problems Problem Noted Date Diagnosed Date Food insecurity 02/26/2021 Overview: Per [facility] Protocol VTE (venous thromboembolism) 12/25/2020 Current [...] glomerulonephritis 08/05/2012 Coronary artery disease invo lving [place] coronary artery of [place] heart without angina pectoris documented as of this encounter (statuses as of 12/06/2024) Resolved Problems Problem Noted Date Diagnosed Date Resolved Date Priapism 07/31/2012 08/07/2016 ADVANCE DIRECTIVE INFORMATION 11/02/2007 05/24/2024 Overview (11/02/2007): No, Advance Directive brochure offered , patient declined. documented as of this encounter (statuses as of 12/06/2024) Immunizations Immunization Administration Dates Next Due Pneumococcal Conjugate Vaccine, [...] Telephone Encounter - Claudia Lopez RN - 12/06/2024 9:13 AM EDT Attempted to call pt . Unable to leave message. * Telephone Encounter - Claudia Lopez RN - 12/06/2024 9:13 AM EDT ----- Message from Delicia rBambila MD sent at 12/03/2024 4:25 PM EDT ----- Failing kidney txplt; attempt to contact pt to adjust FK dose >> pl sf/u w/ another letter; video visit ok ----- Message ----- From: Alicia Marcial Automated Processing Sent: 11/27/2024 8:29 AM EDT To: Delicia Brambila MD * Result Encounter Note - Delicia Brambila MD - 12/03/2024 4:25 PM EDT Failing kidney txplt; attempt to contact pt to adjust FK dose >> pl sf/u w/ another letter; video visit ok documented in this encounter Plan of Treatment [...]
[2024-12-07 06:31] LABS: Basophils # (auto) 0.04 K/uL (0.00-0.20); Basophils % (auto) 0.5 %; Eosinophils # (auto) 0.12 K/uL (0.00-0.50); Eosinophils % (auto) 1.6 %; Immature Granulocytes # (auto) 0.02 K/uL (0.01-0.20); Immature Granulocytes % (auto) 0.3 %; Lymphocytes # (auto) 0.96 K/uL (1.20-3.40); Lymphocytes % (auto) 13.1 %; Mean Corpuscular Hemoglobin 28.3 pg (25.0-34.0); Mean Corpuscular Hgb Conc 33.3 g/dL (32.0-36.0); Mean Corpuscular Volume 84.9 fL (80.0-100.0); Mean Platelet Volume 12.3 fL (9.4-12.4); Monocytes # (auto) 0.69 K/uL (0.11-0.59); Monocytes % (auto) 9.4 %; Neutrophils # (auto) 5.51 K/uL (1.40-6.50); Neutrophils % (auto) 75.1 %; Platelet Count 141 K/uL (130-400); RDW Coefficient of Variation 14.3 % (11.5-14.5); Red Blood Count 4.24 M/uL (4.70-6.10); White Blood Count 7.34 K/ul (4.8-10.8)
[2024-12-07 07:01] LABS: Albumin Globulin Ratio 1.4 (0.9-2); BUN Creatinine Ratio 10.7 (10-20); Bilirubin,Total 0.9 mg/dl (0.2-1.0); Calcium 10.7 mg/dl (8.6-10.3); Creatinine Clr Calc Pharmacy 29.9 ml/min; Globulin 2.9 gm/dl (2.5-4.0); Magnesium 1.8 mg/dl (1.7-2.4); Potassium 4.5 mmol/L (3.5-5.1); Total Protein 6.9 gm/dl (6.0-8.3)
[2024-12-07] MEDS: predniSONE 5 MG TAB PO SCH (08:04)
[2024-12-07] MEDS: azaTHIOprine 25 MG TAB PO SCH (08:05)
--- NOTE | 2024-12-07 09:12 | Surgery Progress Note ---
Date of Service December 07, 2024 Assessment & Plan (1) Abdominal pain: Plan: Pt here with abdominal pain, nausea/vomiting US yesterday revealed GB sludge no acute tati and he had some mildly elevated LFTs & WBC Today WBC 7 (13), LFTs downtrending- Tb 0.9, AST 24, ALT 77, Alkp 36. Vitals stable Still with some abdominal pains in upper abdomen. Has a history abdominal pain w/ gerd and gastroparesis to note HIDA is pending today for eval of acute tati If + will need to discuss with [facility] where he had his kidney txp if they prefer he have surgery there if needed Admission and Anticipated Discharge Date Admission Date: December 06, 2024 Supervising Physician Co-Signing Physician Notes Patient seen and examined, labs image reviewed, agree with above. 44-year-old male with history of renal transplant x 3, first 2 failed, most recently 2021. Admitted with abdominal pain and elevated LFTs along with some nausea. History of gastroparesis. Ultrasound showed sludge in the gallbladder with no cholecystitis. He denies postprandial pain, does get his symptoms after eating but feels similar to the gastroparesis issues he has had for 20 years. On exam he is afebrile stable vitals, his abdomen is soft, nontender, nondistended. Labs unremarkable, LFTs downtrending, WBC normal. HIDA scan performed today showed filling of the gallbladder with no evidence of acute or chronic cholecystitis. Doubt biliary etiology, allow patient to eat, follow-up with his transplant surgeon and GI as an outpatient. Surgery will sign off, call with questions or concerns. Subjective Patient reports intermittent pain in upper abdomen overnight. Physical Exam Physical Exam: awake/alert, no distress Respiratory: normal respiratory effort Gastrointestinal (Abdomen): Inspection/Auscultation: + abdominal surgical scar; abdomen not distended Percussion/Palpation: + abdomen tender (mild discomfort to palpation in the epigastric and RUQ) and abdomen soft Results & Data Vital Signs (Past 12 Hours) Vital Signs Temp Pulse Pulse Resp BP Pulse Ox O2 Del Method 12/07/24 07:30 97.9 F 73 16 122/78 94 Room Air 12/07/24 05:44 67 12/07/24 02:33 97.7 F 82 14 120/78 94 Room Air 12/06/24 22:38 98.2 F 74 18 115/78 96 Room Air 12/06/24 21:46 82 PG Care Time/CCT Total # of Minutes Spent Total Time Spent with Patient: Total time spent is greater than 50% in coordination of care (as documented) at patient's floor/unit and/or counseling patient: Coding Level of Care Code 24297 SUB INP/OBS CARE 08/14MIN Diagnoses Abdominal pain R10.9
--- NOTE | 2024-12-07 09:42 | Nephrology Consultation ---
Date of Consultation December 07, 2024 Assessment & Plan (1) History of kidney transplant: not clear what his OP baseline is as [facility] records not available. w/ creatinine in mid 3's last admission, FK level was too high. creatinine improved already on presentation yesterday to 2.8 (unclear to me why it would improve this way), down to 2.5 today w/ fluid resuscitation. FK dose moved from 08/21 > 1 bid last evening based on level earlier this month in setting of higher creatinine -continue 07/21 FK for now >> likely to need further dose adjustment -recheck level this evening with send out to [facility] >> I will arrange this since timing is painting >>need to alert/coordinate w/ [facility] neph txplt team: -OP bmp, FK TROUGH level w/in 5 days d/c in their lab -alternative to bactrim for PJP prophylaxis >> ? atovaquone (may be difficult to tolerate d/t GI issues) or pentamadine >> [facility] will need to sign off on/and potentially need to arrange this PRIOR TO D/C -ensure close in f/u appt with [facility] txplt; if they defer, ask them if pt can f/u w/ me instead (pt under impression only [facility] wants to see him until February 2025 and then they will be ok w/ psychiatric hospital f/u) -ensure [facility] neph txplt receives d/c summary, copy of this consult once prepared -will work on getting Mar 2025 OP f/u appt w/me set up at least in anticipation of change to community f/u Care coordinated w/ Dr Mason via TText re tac trough and other f/u labs, needed communications w/ [facility], consideration of chronic pancreatitis. we are in agreement. (2) Hyperkalemia: resolved w/ holding bactrim and modifying FK dose. presenting K 5.4, improved to 4.5 today w/med changes and IVF. not a candidate for K binder like lokelma/veltassa or for sodium bicarb chronically d/t digestive issues. >optimize tacro dosing as above >needs bactrim alternative as above (3) Abdominal pain: epigastric and RUQ primarily; h/o chronic pancreatitis in past > ordered lipid profile for AM > consider MRCP > defer further w/u to primary service and GI (4) History of acute renal failure: history of at least stage 1 RUDOLPH on CKD 4 earlier this month unknown baseline creatinine; marked improvement in renal function from d/c to present admission thankfully though for unclear reasons (5) Transaminitis: improving; f/u HIDA results; per primary service (6) CKD (chronic kidney disease) stage 4, GFR 15-29 ml/min: baseline unknown but pt very happy w/ renal labs today. eGFR at 30 or just above w/ current creatinine >> however in this small framed pt w/ less mm mass than average 44 y/o M, this is likely overestimate of his renal function -suggest cystatin C testing as OP -ensure close in txplt/community renal f/u History of Present Illness Reason for Consultation: [facility] renal txplt, hyperkalemia Requesting Physician: Dr Mason Attending Physician: Nicolasa Mason MD History of Present Illness 44-year-old male whom I am asked to see for renal transplant status and hyperkalemia was admitted yesterday with intractable nausea vomiting, epigastric pain, transaminitis and electrolyte disturbances. PMH includes CAD s/p stent, congenital renal dz s/p renal txplt 1984, 2012, 2021; now w/ advanced CKD with baseline creatinine per report between 2 and 3, hypertension, hypothyroid, migraines, gastroparesis, pancreatitis, anxiety/depression, AVF LUE. Recently admitted here November 25 to with similar complaints attributed to impaired gastric motility and gastroenteritis. He was referred at the end of that admission to the gastric motility clinic at [facility] for evaluation for gastric pacemaker. Nephrology followed during that admission. His blood pressure medications were adjusted. His tacrolimus trough came back at 15.5 (target 4-6); he was d/c before tac dose could be adjusted accordingly. After discharge, multiple attempts were made by nephrology to contact the patient for follow-up and for tacro dose change but he was unreachable by phone and has not enabled text contact. A letter was sent. He was discharged November 28 with creatinine 3.6. Hydralazine was stopped at hospital d/c as BP had improved; his OP bactrim, AZA, prednisone, coreg, clonidine were continued. Comes back with creatinine 2.8 yesterday, downtrending to 2.5 today. His discharge potassium November 28 was 4.7; presented with potassium 5.4, downtrending to 4.5 today. November 28 discharge magnesium 1.6, presented December 06 with mag 1.3, up to 1.8 today. Calcium 12 on presentation, down to 10.7 today w/ serum albumin 5 > 4 same timeframe. Transaminases were within normal limits at admission earlier this month. Presented with ALT 123, down to 77 today. AST was 40 on presentation yesterday, down to 24 today. I reviewed this patient's status with Dr. Mason yesterday afternoon and suggested D5 with 75 mill equivalents per liter sodium bicarbonate at 100 mL hourly as well as reducing tacrolimus dose to 1 mg twice daily from 2 and 1 as well as holding bactrim for now.. On presentation yesterday he also had 1.5 L NS and 5 units IV insulin as well as 2 gm IV magnesium. Surgery is following and patient is n.p.o. for HIDA scan this morning as he undergoes evaluation for acute cholecystitis. Surgery suggesting discussion with [facility] for possible transfer given renal transplant status if surgical intervention indicated. He reports ongoing epigastric/RUQ pain, radiating to his back prior to admission. No sob, no cough/wheeze; no change in UOP or dysuria/gross hematuria. no pain over allograft. no edema, no chest pain/palpitations. no f/c/rash/presyncopal sx. Tells me that he loves food but every time he is about to eat he wants to cry b/c knows eating will hurt. At last admission earlier this month, reports he eats one day and poops the next >> but moving his bowels takes 3+ hours and he's vomiting at the same time. Sees [facility] renal txplt team q6 mos and will be looking to transition to community care w/ me in february 2025 per their routine. Allergies Allergy/AdvReac Type Severity Reaction Status Date / Time minoxidil AdvReac Intermediate priapism Verified 11/29/24 16:25 terazosin AdvReac Intermediate priapism Verified 11/29/24 16:25 Home Medications Medication Instructions Recorded Confirmed Type azathioprine 50 mg tablet 25 mg PO DAILY 01/08/24 12/06/24 History prednisone 5 mg tablet 5 mg PO DAILY 01/08/24 12/06/24 History sulfamethoxazole 400 1 tab PO .three times a week 01/08/24 12/06/24 History mg-trimethoprim 80 mg tablet tacrolimus 1 mg capsule, 2 mg PO DAILY 01/08/24 12/06/24 History immediate-release pantoprazole 40 mg tablet,delayed 40 mg PO BID #180 tabs 05/04/24 12/06/24 Rx release clonidine HCl 0.2 mg tablet 0.2 mg PO TID #270 tabs 08/16/24 12/06/24 Rx carvedilol 25 mg tablet 25 mg PO BID #180 tabs 10/07/24 12/06/24 Rx hydroxyzine HCl 25 mg tablet 25 mg PO TID PRN anxiety #60 tabs 10/28/24 12/06/24 Rx tacrolimus 1 mg capsule, 1 mg HS 11/26/24 12/06/24 History immediate-release mirtazapine 15 mg tablet 15 mg PO HS 30 days #30 tabs 11/28/24 12/06/24 Rx polyethylene glycol 3350 17 gram 17 g PO TID #100 ea 11/28/24 12/06/24 Rx oral powder packet polyethylene glycol 3350 17 gram 17 g PO TID 30 days #90 ea 11/28/24 12/06/24 Rx oral powder packet (Miralax) metoclopramide HCl 5 mg tablet 5 mg PO TID PRN Nausea 12/06/24 12/06/24 History Patient History Medical History ESRD (end stage renal disease) on dialysis Thrombocytopenia AV fistula occlusion Kidney transplant failure Left upper extremity deep vein thrombosis Ileus AV fistula LEFT BICEP Glomerulonephritis "BORN WITH" Arthritis Hx of pancreatitis Hypothyroidism Anxiety and depression Surgical History Kidney transplant status "R 1984 and L 2012" Arteriovenous fistula removed History of esophagogastroduodenoscopy (EGD) History of colonoscopy [place] teeth removed Family History Father Diabetes Kidney disease Hypertension Family history of diabetes mellitus Mother Kidney disease Hypertension Sister Ulcerative colitis Other No family history of adverse response to anesthesia Denies family history of Ovarian cancer Prostate cancer Breast cancer Lung cancer Stroke Social History Smoking Status: Former smoker Tobacco Type: Cigarettes Age Started Using Tobacco: 14; Age Quit Using Tobacco: 32; packs per day: 0.5; Second Hand Exposure: No; Do You Dip or Chew Tobacco: No; Tobacco Cessation Education Requested by Patient: No Hx Alcohol Use: No Hx Substance Use: No Preferred Language: Mohawk Communication Ability: Effective Visual Impairment: Limited Hearing Ability: Normal Adult Basic Education Manager Required: No Beliefs That Will Affect Care: None marital status: Current Living Situation: Alone current occupational status: employed and disabled current occupation: part-time How many Children do You have: 1 Other Information That Helps Us Care for You: No Feels Safe at Home: Yes Safety Concerns: Feels Safe At This Time Childhood Exposure to Second-Hand Smoke: No Diet: regular caffeine: Yes during the past year weight has: remained stable Dental Care, Regularly: No Physical Activity Frequency: Daily Seatbelt Use: always Sunscreen Use: No Assistive Devices: None Review of Systems 2 Review of Systems: All systems reviewed & are unremarkable except as noted in HPI & below Physical Exam 2 Constitutional: well developed (ambulatory w/o asst; appears chronically ill), well nourished and cooperative; no acute distress Eyes: EOM intact bilaterally ENMT: Mouth: + dry oral mucous membranes Respiratory: normal respiratory effort Auscultation: + diminished lung sounds Cardiovascular: Rate/Rhythm: regular rate and regular rhythm Extremities: + AV fistula; no edema Gastrointestinal (Abdomen): Inspection/Auscultation: abdomen normal to inspection and normal bowel sounds; abdomen not distended P ercussion/Palpation: + abdomen tender and abdomen soft; no guarding and no ascites Musculoskeletal: Extremities: strength 5/5 throughout Skin: no rashes, warm and dry Neurologic: leon, fluent speech, no tremor Psychiatric: Orientation: alert and oriented x 3 Results & Data Vital Signs (Past 12 Hours) Vital Signs Temp Pulse Pulse Resp BP Pulse Ox O2 Del Method 12/07/24 07:30 36.6 C 73 16 122/78 94 Room Air 12/07/24 05:44 67 12/07/24 02:33 36.5 C 82 14 120/78 94 Room Air 12/06/24 22:38 36.8 C 74 18 115/78 96 Room Air 12/06/24 21:46 82 Laboratory Results 12/07/24 05:49 12/07/24 05:49 Diagnostic Findings abd pelv ct no con R txplt kidney ok/unremarkable; no acute findings RUQ u/s 1. No acute right upper quadrant abnormality. 2. Gallbladder sludge. 3. Severe atrophy of the [place] right kidney. 4. Mild unchanged pelvocaliectasis of the right pelvic renal transplant.
--- NOTE | 2024-12-07 11:38 | Gastrointestinal Consultation ---
Date of Consultation December 07, 2024 Assessment & Plan (1) Transaminitis: (2) Gastroparesis: Plan - LFTs seem to be trending downwards. liver unremarkable on imaging. - he is ordered a hida scan to further evaluate the gallbladder as cause for his pain. - continue with antiemetics as needed for nausea/vomiting. - It seems like he has failed more conservative measures for his gastroparesis. He would be interested in procedures such as G poem or gastric stimulators. He would need to be set up with a motility clinic to further discuss these options which could be set up in the outpatient setting. Supervising Physician Co-Signing Physician Notes Complex history of intermittent nausea and vomiting carries a diagnosis of gastroparesis. This seems to be made on the basis of a single solid emptying s tudy done 1 to 2 years ago. This has not been repeated. Patient tells me that they treated with nortriptyline which is not a typical drug for gastroparesis. He does take Reglan just at bedtime. Tells me at upper endoscopy his stomach typically is empty they do not find food. Sounds like his last endoscopy again was 1 to 2 years ago at [facility] we do not have the results of this study. Says that he had a dilatation done not clear this was esophageal or pyloric channel. Patient has not seen a motility clinic. Patient does not look like he is losing weight he does use medical marijuana but is very resistant that this has anything to do with his symptoms states he is stopped for months in the past with no benefit states the symptoms predated the introduction of marijuana. We did review that cyclic vomiting disorder and marijuana hyperemesis syndrome are very difficult to distinguish and marijuana can act as a trigger again seems to resistant to this idea At this point I do not think multiple investigations will be of benefit. Suggest he return to [facility] but he seems disinclined to do that states he can only get into see them once a year and motility clinic would be his best bet. Because his diagnosis is based on a single gastric emptying study is suggest we repeat this liquid phase is fine does not require solid food emptying study. Review of ultrasound shows no gallbladder wall thickening no stones. HIDA scan is normal. I do not believe that this is biliary in nature. Transaminases minimally up and are decreasing. Plan gastric emptying study referral to motility clinic History of Present Illness Reason for Consultation: gastroparesis, elevated LFTs, gallbladder sludge Requesting Physician: Nicolasa Mason MD Attending Physician: Nicolasa Mason MD History of Present Illness Patient is a 44 year old male with a past medical history of ESRD s/p bilateral renal transplant (2 failed, most recent in March 2022 - on 3rd Kidney), gastroparesis, CAD s/p stent, and GERD who presented to the ED on 12/06/24 for worsening lower back pain, epigastric pain (worse on the right side), and intractable nausea/vomiting. Patient reports he has had several admissions over the years for episodes like this that he feels are secondary to gastroparesis. he tells me that he can feel well some days and then other days he will have symptoms and they seem to come and go. he has been following with [facility] Luo in [facility] on his gastroparesis, but tells me he has failed more conservative measures like diet and reglan. He is n ot sure how well these help. Currently, he feels me that he feels well, but this tends to be the course with his symptoms where he has days of symptoms and days being symptom free. 12/06/24 T bili 1.1, AST 40, ALT 123, ALK 166. 12/07/24 T bili 0.9, AST 24, ALT 77, ALK 136 12/06/24 CT A/P No acute findings. 12/06/24 US No acute right upper quadrant abnormality. Gallbladder sludge. Severe atrophy of the [place] right kidney. Mild unchanged pelvocaliectasis of the right pelvic renal transplant. Allergies Allergy/AdvReac Type Severity Reaction Status Date / Time minoxidil AdvReac Intermediate priapism Verified 11/29/24 16:25 terazosin AdvReac Intermediate priapism Verified 11/29/24 16:25 Home Medications Medication Instructions Recorded Confirmed Type azathioprine 50 mg tablet 25 mg PO DAILY 01/08/24 12/06/24 History prednisone 5 mg tablet 5 mg PO DAILY 01/08/24 12/06/24 History sulfamethoxazole 400 1 tab PO .three times a week 01/08/24 12/06/24 History mg-trimethoprim 80 mg tablet tacrolimus 1 mg capsule, 2 mg PO DAILY 01/08/24 12/06/24 History immediate-release pantoprazole 40 mg tablet,delayed 40 mg PO BID #180 tabs 05/04/24 12/06/24 Rx release clonidine HCl 0.2 mg tablet 0.2 mg PO TID #270 tabs 08/16/24 12/06/24 Rx carvedilol 25 mg tablet 25 mg PO BID #180 tabs 10/07/24 12/06/24 Rx hydroxyzine HCl 25 mg tablet 25 mg PO TID PRN anxiety #60 tabs 10/28/24 12/06/24 Rx tacrolimus 1 mg capsule, 1 mg HS 11/26/24 12/06/24 History immediate-release mirtazapine 15 mg tablet 15 mg PO HS 30 days #30 tabs 11/28/24 12/06/24 Rx polyethylene glycol 3350 17 gram 17 g PO TID #100 ea 11/28/24 12/06/24 Rx oral powder packet polyethylene glycol 3350 17 gram 17 g PO TID 30 days #90 ea 11/28/24 12/06/24 Rx oral powder packet (Miralax) metoclopramide HCl 5 mg tablet 5 mg PO TID PRN Nausea 12/06/24 12/06/24 History Patient History Medical History ESRD (end stage renal disease) on dialysis Thrombocytopenia AV fistula occlusion Kidney transplant failure Left upper extremity deep vein thrombosis Ileus AV fistula LEFT BICEP Glomerulonephritis "BORN WITH" Arthritis Hx of pancreatitis Hypothyroidism Anxiety and depression Surgical History Kidney transplant status "R 1984 and L 2012" Arteriovenous fistula removed History of esophagogastroduodenoscopy (EGD) History of colonoscopy [place] teeth removed Family History Father Diabetes Kidney disease Hypertension Family history of diabetes mellitus Mother Kidney disease Hypertension Sister Ulcerative colitis Other No family history of adverse response to anesthesia Denies family history of Ovarian cancer Prostate cancer Breast cancer Lung cancer Stroke Social History Smoking Status: Former smoker Tobacco Type: Cigarettes Age Started Using Tobacco: 14; Age Quit Using Tobacco: 32; packs per day: 0.5; Second Hand Exposure: No; Do You Dip or Chew Tobacco: No; Tobacco Cessation Education Requested by Patient: No Hx Alcohol Use: No Hx Substance Use: No Preferred Language: Nigerian Communication Ability: Effective Visual Impairment: Limited Hearing Ability: Normal Channel Executive Required: No Beliefs That Will Affect Care: None marital status: Current Living Situation: Alone current occupational status: employed and disabled current occupation: part-time How many Children do You have: 1 Other Information That Helps Us Care for You: No Feels Safe at Home: Yes Safety Concerns: Feels Safe At This Time Childhood Exposure to Second-Hand Smoke: No Diet: regular caffeine: Yes during the past year weight has: remained stable Dental Care, Regularly: No Physical Activity Frequency: Daily Seatbelt Use: always Sunscreen Use: No Assistive Devices: None Review of Systems Review of Systems: All systems reviewed & are unremarkable except as noted in HPI & below Physical Exam Constitutional: WD/WN, vitals as above Respiratory: normal respiratory effort, lungs clear to auscultation Cardiovascular: Rate/Rhythm: regular rate and regular rhythm Gastrointestinal (Abdomen): normal bowel sounds, soft, nontender, no hepatosplenomegaly Psychiatric: Orientation: alert and oriented x 3 Affect: euthymic affect Results & Data Vital Signs (Past 12 Hours) Vital Signs Temp Pulse Pulse Resp BP Pulse Ox O2 Del Method 12/07/24 07:30 97.9 F 73 16 122/78 94 Room Air 12/07/24 05:44 67 12/07/24 02:33 97.7 F 82 14 120/78 94 Room Air Coding Level of Care Code 69160 INT INP/OBS CARE 2/55MIN Diagnoses Transaminitis R74.01 Gastroparesis K31.84
--- NOTE | 2024-12-07 12:28 | Nuclear Medicine Report ---
NUCLEAR MEDICINE HEPATOBILIARY SCAN CLINICAL HISTORY: Abdominal pain. Elevated LFTs. Evaluate for acute cholecystitis. COMPARISON: CT of the abdomen and pelvis and right upper quadrant ultrasound December 06, 2024. TECHNIQUE: 6.1 mCi of technetium 99m Choletec IV was injected at 10:35 AM on December 07, 2024. Immediat karol following injection, imaging of the abdomen was carried out for 60 minutes in the anterior projec tion. FINDINGS: Hepatic uptake of radiotracer is prompt and homogeneous. Radiotracer activity is identifie d within the common bile duct at 10 minutes, gallbladder at 10 minutes and small bowel at 45 minutes. There is normal distribution of radiotracer. IMPRESSION: No evidence for acute cholecystitis. ACT 112: Negative or not required by law. Electronically signed by: Terrance Butler M.D. 12/07/2024 12:26 PM
[2024-12-07] MEDS: MAGNESIUM SULFATE / D5W 1 GM/100 ML BAG IV ONE (12:33)
--- NOTE | 2024-12-07 16:23 | Hospitalist Progress Note ---
Date of Service December 07, 2024 Assessment & Plan (1) Nausea & vomiting: (2) Transaminitis: (3) Hypomagnesemia: (4) Acute hyperkalemia: Plan This patient is a 44-year-old male with PMH of ESRD s/p renal transplant, CKD stage IV, HTN, CAD s/p stents, gastroparesis, prediabetes, anxiety, LUE DVT who presented on 12/06 for intractable nausea, vomiting, and abdominal pain. CT abdomen/pelvis without acute findings but LFTs elevated and an obstructive pattern. RUQ ultrasound shows gallbladder sludge. HIDA scan negative for acute cholecystitis. #Intractable N/V/epigastric/RUQ abdominal pain-gallbladder disease has now been ruled out, could be gastritis along with gastroparesis. Appreciate general surgery and GI consultations. Advanced diet and tolerating on 12/07 after starting scheduled Reglan. Was given IV fluids and now stopped. LFTs trending downward. Leukocytosis resolved -Continue IV Zofran and Compazine PRN - Add scheduled Reglan 5 Mg p.o. 3 times daily -Follow BMP, magnesium, LFTs - Recommend follow-up with GI motility clinic in [place]-referral has been initiated already as an outpatient #ESRD s/p bilateral renal transplant w/ h/o transplant failure/hyperkalemia- Follows with [facility] for renal transplant.Renal function around baseline on arrival and now is better than baseline at 2.5. With hyperkalemia secondary to elevated tacrolimus levels as well as Bactrim use perhaps. A/P CT without co ntrast revealed no acute findings. Bactrim discontinued, tacrolimus dose lowered to 1 Mg p.o. twice daily, and was given insulin, sodium bicarbonate drip and potassium is now normalized. Nephrology consult appreciated -Patient to get me the phone number for his primary care coordinator to discuss alternate to Bactrim prophylaxis - Continue lower dose of tacrolimus at 1 Mg p.o. twice daily, checking trough level at 1930 on 12/07 -Continue azathioprine, prednisone -Continue low K diet - follow BMP #Hypercalcemia-Noted; elevated calcium at 12.0 on arrival from volume con traction and renal failure. Improved now with IV fluid hydration -Follow BMP #Hypomagnesemia-Magnesium 1.3 on arrival from GI losses. Replaced with IV magnesium and now improving -Give 1 more gram of IV magnesium sulfate - Follow magnesium level in the morning #Borderline diabetes-Last A1c 6.1% on 11/25/2024 -Continue T2DM diet -Continue BSG ACHS -Continue NovoLog SSI and adjust regimen as needed #Anxiety-no acute issues Continue nortriptyline and hydroxyzine PRN Lorazepam PRN (may also help with nausea) #HTN-BPs were quite elevated and are now normalized to mildly elevated -Continue carvedilol, hydralazine, clonidine -Labetalol 5 mg IV PRN for persistent HTN with SBP >180 or DBP >120 #History of LUE DVT-Noted - Continue heparin for DVT PPx #CAD s/p stented coronary artery- H/o 23 intracoronary stents at [place]; per cardiology notes, details are unknown Patient is not currently on aspirin or antiplatelet therapy. Per patient, he was told to stop taking Plavix by his transplant team -Will discuss with transplant team about if okay to take Plavix DVT prophylaxis-heparin SQ Disposition-continued stay medical floor with telemetry, improving, possible discharge to home on 12/08 Admission and Anticipated Discharge Date Admission Date: December 06, 2024 Subjective Patient was actually feeling hungry today after being n.p.o. for HIDA scan and reports his stomach was growling. He is having some abdominal pain but much improved from previous. He just ate chicken and rice and fruit for lunch and has no nausea currently. I discussed his care with nephrology. Telemetry with normal sinus rhythm and PVCs with rates in the 60s to 70s Physical Exam Constitutional: WD/WN, vitals as above Respiratory: normal respiratory effort, lungs clear to auscultation Cardiovascular: RRR, no murmur, no edema Gastrointestinal (Abdomen): Inspection/Auscultation: normal bowel sounds; + abdomen abnormal to inspection (Multiple surgical scars on abdomen) and abdomen not distended Percussion/Palpation: + abdomen tender (In epigastric and RUQ region without guarding or rebound) and abdomen soft Psychiatric: A+Ox3, euthymic affect Results & Data Results & Data Vital Signs (Past 12 Hours) Vital Signs Temp Pulse Pulse Resp BP BP Pulse Ox 12/07/24 14:35 36.7 C 65 18 145/88 H 97 12/07/24 12:59 66 12/07/24 07:30 36.6 C 73 16 122/78 94 12/07/24 05:44 67 O2 Del Method 12/07/24 14:35 Room Air 12/07/24 12:59 12/07/24 07:30 Room Air 12/07/24 05:44 Laboratory Results CBC, BMP, magnesium, LFTs reviewed Diagnostic Findings HIDA scan reviewed PG Care Time/CCT Total # of Minutes Spent Total Time Spent with Patient: Total time spent is greater than 50% in coordination of care (as documented) at patient's floor/unit and/or counseling patient: Coding Level of Care Code 59583 SUB INP/OBS CARE 3/50MIN Diagnoses Nausea & vomiting R11.2 Transaminitis R74.01 Hypomagnesemia E83.42 Acute hyperkalemia E87.5
[2024-12-07 17:42] LABS: Creatinine Urine Random 67.1 mg/dl; Protein Creatinine Ratio Urine 0.5 (0-0.2); Total Protein Urine Random 34.6 mg/dl (0-11.9)
[2024-12-08 06:17] LABS: Basophils # (auto) 0.04 K/uL (0.00-0.20); Basophils % (auto) 0.7 %; Eosinophils # (auto) 0.12 K/uL (0.00-0.50); Hematocrit (blood only) 32.6 % (42.0-52.0); Immature Granulocytes # (auto) 0.02 K/uL (0.01-0.20); Immature Granulocytes % (auto) 0.3 %; Lymphocytes # (auto) 1.07 K/uL (1.20-3.40); Lymphocytes % (auto) 17.5 %; Mean Corpuscular Hemoglobin 29.3 pg (25.0-34.0); Mean Corpuscular Hgb Conc 33.7 g/dL (32.0-36.0); Mean Corpuscular Volume 86.7 fL (80.0-100.0); Mean Platelet Volume 12.4 fL (9.4-12.4); Monocytes # (auto) 0.59 K/uL (0.11-0.59); Monocytes % (auto) 9.7 %; Neutrophils # (auto) 4.27 K/uL (1.40-6.50); Neutrophils % (auto) 69.8 %; Platelet Count 127 K/uL (130-400); RDW Standard Deviation 44.2 fL (36.4-46.3); Red Blood Count 3.76 M/uL (4.70-6.10); White Blood Count 6.11 K/ul (4.8-10.8)
[2024-12-08 06:36] LABS: Albumin Level 3.7 gm/dl (3.4-5.0); BUN Creatinine Ratio 12.2 (10-20); Bilirubin Direct 0.1 mg/dl (0-0.2); Bilirubin,Total 0.5 mg/dl (0.2-1.0); Calcium 10.1 mg/dl (8.6-10.3); Chol HDL Ratio 6.6 (0-5); Creatinine Clr Calc Pharmacy 23.4 ml/min; Magnesium 1.9 mg/dl (1.7-2.4); Potassium 4.6 mmol/L (3.5-5.1); Total Protein 6.3 gm/dl (6.0-8.3)
[2024-12-08 07:51] VITALS: TEMP 97.5
--- NOTE | 2024-12-08 08:36 | Nephrology Progress Note ---
Date of Service December 08, 2024 Assessment & Plan (1) History of kidney transplant: Plan: not clear what his OP baseline is as [facility] records not available. w/ creatinine in mid 3's last admission, FK level was too high. creatinine improved already on presentation yesterday to 2.8 (unclear to me why it would improve this way), down to 2.5 December 07 w/ fluid resuscitation; with holding fluid resuscitation, rapid creatinine increased to 3.3 today again for unclear reasons>> no IV contrast no extremes in hemodynamics no new medications no overt sepsis; BUN w/ marked jump as well. FK dose moved from 08/21 > 1 bid December 06 based on level earlier this month in setting of higher creatinine >>>started low dose LR given change in allograft function, relative hypotension at 80 mL hourly -continue 07/21 FK for now >> likely to need further dose adjustment -recheck level December 07 with send out to [facility] >> anticipate results will post this evening >>need to alert/coordinate w/ [facility] neph txplt team: -OP bmp, FK TROUGH level w/in 5 days d/c in their lab -alternative to bactrim for PJP prophylaxis >> ? atovaquone (may be difficult to tolerate d/t GI issues) or pentamadine >> [facility] will need to sign off on/and potentially need to arrange this PRIOR TO D/C; appreciate hospitalist efforts in communicating this w/ [facility] -ensure close in f/u appt with [facility] txplt; if they defer, ask them if pt can f/u w/ me instead (pt under impression only [facility] wants to see him until February 2025 and then they will be ok w/ community f/u) -ensure [facility] neph txplt receives d/c summary, copy of this consult once prepared -Patient states he wishes to follow-up with me and verifies his phone number; will work on getting hospital discharge OP f/u appt w/me Care coordinated w/ Dr Mason via TText re tac trough, follow-up appointment, IV fluid, planned tests and needed communications w/ [facility], consideration of chronic pancreatitis. we are in agreement. (2) Hyperkalemia: Plan: resolved w/ holding bactrim and modifying FK dose. presenting K 5.4, improved to 4.5 today w/med changes and IVF. not a candidate for K binder like lokelma/veltassa or for sodium bicarb chronically d/t digestive issues. >optimize tacro dosing as above--continue 1 mg twice daily for now pending trough result >needs bactrim alternative as above (3) Abdominal pain: Plan: Nausea more prominent symptom in this pain; it has been epigastric and RUQ primarily; h/o chronic pancreatitis in past. Lipid profile not severely abnormal, certainly not abnormal enough to raise concern for pancreatitis from hypertriglyceridemia. patient also using THC near daily and some concern for cyclic vomiting disorder/marijuana hyperemesis > For gastric emptying study and then potential referral to [facility] gastric motility clinic > consider MRCP > defer further w/u to primary service and GI (4) History of acute renal failure: Plan: history of at least stage 1 RUDOLPH on CKD 4 earlier this month, presumably. And now with recurrent worsened renal function unknown baseline creatinine; marked improvement in renal function from d/c to present admission thankfully though for unclear reasons which then worsened rapidly overnight also for unclear reasons (5) Transaminitis: Plan: improving; HIDA scan within normal limits; per primary and GI service (6) CKD (chronic kidney disease) stage 4, GFR 15-29 ml/min: Plan: baseline unknown and lots of lability in function, worse today. eGFR at 30 or just above w/ best this admission creatinine >> however in this small framed pt w/ less mm mass than average 44 y/o M, this is likely overestimate of his renal function. and renal function so labile, baseline likely higher than mid 2's -suggest cystatin C testing as OP -ensure close in txplt/community renal f/u Admission and Anticipated Discharge Date Admission Date: December 06, 2024 Subjective After GI evaluation yesterday with normal HIDA scan, gastric emptying study followed by motility clinic referral planned. Patient tells me he was told that gastric emptying study cannot be done here/currently. Last bowel movement was prior to admission. Chief complaint currently is nausea more than abdominal pain. No shortness of breath. Acknowledges he is taking in minimal p.o. No new or worrisome voiding symptoms. Tells me he loves to play guitar and wishes that he could lift the 100 pounds and run but he cannot do either of those things on a good day Review of Systems 2 Review of Systems: All systems reviewed & are unremarkable except as noted in Subjective Physical Exam 2 Constitutional: well developed (ambulatory w/o asst; appears chronically ill), well nourished and cooperative; no acute distress Eyes: EOM intact bilaterally ENMT: Mouth: + dry oral mucous membranes Respiratory: normal respiratory effort Auscultation: + diminished lung sounds Cardiovascular: Rate/Rhythm: regular rate and regular rhythm Extremities: + AV fistula; no edema Gastrointestinal (Abdomen): Inspection/Auscultation: abdomen normal to inspection and normal bowel sounds; abdomen not distended P ercussion/Palpation: + abdomen tender and abdomen soft; no guarding and no ascites Musculoskeletal: Extremities: strength 5/5 throughout Skin: no rashes, warm and dry Psychiatric: Orientation: alert and oriented x 3 Results & Data Vital Signs (Past 12 Hours) Vital Signs Temp Pulse Pulse Resp BP Pulse Ox O2 Del Method 12/08/24 07:48 36.4 C L 55 L 18 100/62 96 Room Air 12/08/24 07:33 57 L 12/08/24 02:30 36.5 C 63 16 103/67 95 Room Air 12/07/24 22:46 Room Air 12/07/24 22:15 37.3 C 80 16 121/76 94 Room Air 12/07/24 21:45 81 Laboratory Results 12/08/24 05:35 12/08/24 05:35
[2024-12-08] MEDS: LACTATED RINGER'S 1,000 ML IV SCH (09:41)
--- NOTE | 2024-12-08 10:31 | Gastroenterology Progress Note ---
Date of Service December 08, 2024 Assessment & Plan (1) Nausea & vomiting: (2) Gastroparesis: Plan Patient does feel improved currently though still some nausea. He is unable to have GES at this time given recent HIDA. - I have the outpatient office working on a referral to a motility center for further evaluation of his symptoms. he is agreeable to this. He can pursue further work up there in the outpatient setting. - recommend gastroparesis diet and antiemetics as needed. Admission and Anticipated Discharge Date Admission Date: December 06, 2024 Supervising Physician Co-Signing Physician Notes Patient seems to be tolerating p.o. He ate at least half his tray. Told him he should avoid excess vegetable material there were some on his tray. Vegetable material may be slower emptying patients with gastroparesis. I think be reasonable to try this patient on 4 times Reglan therapy ten 1/2 an hour AC meals and nightly for 2 weeks. He can then go back to his previously prescribed dose at bedtime. Patient's diagnosis gastroparesis is based on a single gastric emptying study. His EGDs he tells me have not been associated with significant gastric retention. I think it be important to re-workup this diagnosis. Including gastric emptying study. I think he be best served by a GI motility clinic evaluation based on chronic ongoing and recurrent symptoms sometimes up to once per month. The differential course includes cyclic vomiting disorder and potential aggravation by chronic marijuana use. Patient is resistant to that idea. Will have our office [facility] work on the motility referral. He can be discharged from a GI perspective. Subjective Patient is still with some nausea, but overall improved. no emesis. he is unable to have the GES today as he had the HIDA yesterday. Radiology informed me that this can only be done on Wednesdays and that they are only done every other week. no liquid GES testing available. no other GI concerns. Review of Systems Review of Systems: All systems reviewed & are unremarkable except as noted in HPI & below Physical Exam Constitutional: WD/WN, vitals as above Respiratory: normal respiratory effort, lungs clear to auscultation Cardiovascular: Rate/Rhythm: regular rate and regular rhythm Gastrointestinal (Abdomen): normal bowel sounds, soft, nontender, no hepatosplenomegaly Psychiatric: Orientation: alert and oriented x 3 Results & Data Results & Data Vital Signs (Past 12 Hours) Vital Signs Temp Pulse Pulse Resp BP Pulse Ox O2 Del Method 12/08/24 08:52 97.5 F L 55 L 16 100/62 96 Room Air 12/08/24 07:48 97.5 F L 55 L 18 100/62 96 Room Air 12/08/24 07:33 57 L 12/08/24 02:30 97.7 F 63 16 103/67 95 Room Air 12/07/24 22:46 Room Air Coding Level of Care Code 84177 SUB INP/OBS CARE 08/14MIN Diagnoses Nausea & vomiting R11.2 Gastroparesis K31.84
[2024-12-08] MEDS: METOCLOPRAMIDE HCL 5 MG TABLET PO SCH (11:49)
[2024-12-08 15:43] VITALS: RESP 18; O2SAT 96
--- NOTE | 2024-12-08 15:46 | Communication Note ---
Date of Service: December 08, 2024 Tac level on 1mg bid dosing came back at 7, still a bit high (target 4-6). However renal function changed dramatically between yesterday am (creat 2.5) and this AM (creat 3.3 again) >> meaning that best tac dose may have changed as well. Pt currently receiving LR continuous Tac dose received this AM 1145 >repeat BMP and tac level this PM 1115 for tac trough; do not give PM tac dose until at least after lab draw Not likely to need am labs tomorrow w/ this late draw but will d/w Dr Isabella TEAGUE and Dr Jesus ferro as well as lab re redraw this PM.
--- NOTE | 2024-12-08 17:01 | Discharge Summary ---
Discharge Summary Date of Service December 08, 2024 Principal Dx & Hospital Course #1 = Principal Diagnosis (1) Nausea & vomiting: (2) Transaminitis: (3) Hypomagnesemia: (4) Acute hyperkalemia: Plan This patient is a 44-year-old male with PMH of ESRD s/p renal transplant, CKD stage IV, HTN, CAD s/p stents, gastroparesis, prediabetes, anxiety, LUE DVT who presented on 12/06 for intractable nausea, vomiting, and abdominal pain. CT abdomen/pelvis without acute findings but LFTs elevated and an obstructive pattern. RUQ ultrasound shows gallbladder sludge. HIDA scan negative for acute cholecystitis. #Intractable N/V/epigastric/RUQ abdominal pain-gallbladder disease has been ruled out, could be gastritis along with gastroparesis. Appreciate general surgery and GI consultations. Advanced diet and tolerating after starting scheduled Reglan. Advised low fiber diet and small amounts of food and drink throughout the day on a gastroparesis diet. He was given IV fluids for hydration. LFTs trending downward. Leukocytosis resolved. He does smoke marijuana for mental health issues and chronic pain issues and feels that his mental health would significantly deteriorate if he were to stop. He reports he had his gastrointestinal issues present long before he started using marijuana and therefore cyclic vomiting or hyperemesis cannabis is likely ruled out. -Continue Reglan 5 Mg p.o. before meals and at bedtime -Recommend follow-up with GI motility clinic in [place]-referral has been initiated already as an outpatient - GI also recommends repeat gastric emptying study #ESRD s/p bilateral renal transplant w/ h/o transplant failure/hyperkalemia- Follows with [facility] for renal transplant. Renal function around baseline on arrival around 3.5 and then improved to 2.5 with IV fluid hydration. On the day of discharge, his creatinine did bump back up to 3.3 and he was given further IV fluids. With hyperkalemia secondary to elevated tacrolimus levels as well as Bactrim use, perhaps. A/P CT without contrast revealed no acute findings. Bactrim discontinued, tacrolimus dose lowered to 1 Mg p.o. twice daily, and was given insulin, sodium bicarbonate drip and potassium is now normalized. Nephrology consult appreciated -Patient reached out to his information coordinator to discuss alternate to Bactrim prophylaxis, but was still awaiting return communication at the time of discharge-this can be done as an outpatient with nephrology -Repeat tacrolimus level after lowering the dose did come down to 7 which is still above goal of 2-5-mgslococ lower dose of tacrolimus at 1 Mg p.o. twice daily, check trough level again at 0 830 on 12/09 along with a BMP -Continue azathioprine, prednisone -follow BMP as an outpatient with nephrology follow-up #Hypercalcemia-Noted; elevated calcium at 12.0 on arrival from volume contraction and renal failure. Improved now with IV fluid hydration -Follow BMP as an outpatient #Hypomagnesemia-Magnesium 1.3 on arrival from GI losses. Replaced with IV magnesium and now normalized #Borderline diabetes-Last A1c 6.1% on 11/25/2024, Accu-Cheks here showed mildly elevated blood sugars - Follow-up with PCP #Anxiety-no acute issues -Continue nortriptyline and hydroxyzine PRN -He uses THC at home for this as well #HTN-BPs were quite elevated on admission and are now normalized -Continue carvedilol, hydralazine, clonidine #History of LUE DVT-Noted -He received heparin for DVT PPx #CAD s/p stented coronary artery- H/o 23 intracoronary stents at [place]; per cardiology notes, details are unknown Patient is not currently on aspirin or antiplatelet therapy. Per patient, he was told to stop taking Plavix by his transplant team. He does have mild thrombocytopenia but this is not a level that would preclude taking an antiplatelet -Patient will clarify/discuss with transplant team about if okay to take Plavix DVT prophylaxis-heparin SQ Disposition-stable for discharge to home on 12/08 with close outpatient follow-up Notes For Next Care Provider Checking tacrolimus and BMP levels in the morning 12/09 Needs follow-up with transplant candy supervisor regarding alternative for PCP prophylaxis to Bactrim since this was discontinued. Also need to clarify if he is allowed to take Plavix or aspirin due to his history of CAD with stents Medication Changes From Visit Decrease dose of tacrolimus to 1 Mg p.o. twice daily Increased dose of metoclopramide to 5 Mg p.o. with meals and at bedtime Admission HPI Per Admitting Provider Mr. Do is a 44-year-old male with PMH of ESRD s/p bilateral renal transplant (2 failed, most recent in March 2022), gastroparesis, CAD s/p stent, and GERD. He presented on 12/06 for worsening lower back pain, epigastric pain (worse on the right side), and intractable nausea/vomiting. Patient reports he felt good when he left the hospital on 11/28. Then a day after, he developed some nausea. This is slowly been getting worse throughout the week. Yesterday, he developed epigastric pain and bilateral low back pain around 1 PM. Patient did not take any pain medicine prior to coming to the hospital. He characterizes the pain as constant, sharp, and achy; he rates it 10/10 at worst, and 9/10 at present. No reported fevers at home. No prior history of gallbladder issues. No history of kidney stones. No recent change in diet. He has not been eating much since he got home from the hospital; reports he eats a few saltines a day, and half a sandwich. However over the past 24 hours, he has been unable to keep anything down except for his pills and sips of water. He has been taking Zofran at home for the nausea, but he is unsure if this helps. Additionally, he reports that diarrhea started yesterday morning; soft stool, brown in color, no blood in stool, no recent antibiotic use. No sick contacts to his knowledge. Patient took his regular morning medicine today. He denies smoking, tobacco use, recent alcohol use. Patient is hypertensive at 174/116 at time of admission; vitals otherwise stable. ED course: NSS 1500 mL IV Magnesium sulfate 1 g IV Compazine 1 [place] IV Diphenhydramine 25 mg IV Acetaminophen 1000 mg IV Insulin human regular 5 units IV + dextrose 50% ROS: Patient endorses epigastric pain, lower back pain, nausea, vomiting, diarrhea, Patient denies fever, chills, night-sweats, ELAM, chest pain, chest palpitations, SOB, pleuritic CP, hematemesis, changes in urinary habits, burning with urination, melena, or blood in the urine/stool. Discharge Exam Constitutional WD/WN, vitals as above Respiratory normal respiratory effort, lungs clear to auscultation Cardiovascular RRR, no murmur, no edema Gastrointestinal (Abdomen) Inspection/Auscultation: normal bowel sounds; + abdomen abnormal to inspection (Multiple surgical scars on abdomen) and abdomen not distended Percussion/Palpation: + abdomen tender (In epigastric and RUQ region without guarding or rebound) and abdomen soft Psychiatric A+Ox3, euthymic affect Discharge Plan Discharge Items Patient Disposition: Home - Self-Care Reason For Visit: INTRACTABLE N/V Discharge Diagnosis: Intractable nausea/vomiting, gastroparesis flare Elevated LFTs Hyperkalemia Condition on Discharge: Fair Activity: Resume your previous activity Non-emergency contact: Primary Care Provider, Premium Service Representative and Costume Shop Manager Call non-emergency contact if: you have any medication questions, your symptoms worsen and your pain is not controlled Follow-up/Referrals: Kelechi Bennett III, CRNP [Primary Care Provider] - (Please follow-up within 1- 2 weeks) Delicia Brambila MD, PhD [Physician] - (Please follow-up within 2 weeks) Diet: Regular Diet Comment: Gastroparesis diet Addtl Attending Provider Instructions: You are admitted with nausea and vomiting related to your gastroparesis. This improved with antinausea medicines and increasing your Reglan to 4 times a day. You were given IV fluids for hydration. You had high potassium levels which may be from elevated tacrolimus levels as well as from taking Bactrim. Please stop taking the Bactrim and decrease your tacrolimus dose to 1 mg twice a day. Please have your blood work drawn on the morning of 12/09 at 8:30 AM, 11-1/2 hours after your evening dose of tacrolimus. Please follow-up with Dr. Allen. Once your transplant nephrology team gets back to you regarding the Bactrim, please have them reach out to Dr. Allen to discuss an alternative to the Bactrim to help prevent PCP. It is also recommended that you take Plavix due to to having stents in your heart, however you believe that your transplant team told you to stop taking this for unknown reasons. Please clarify with them if you are able to take Plavix (clopidogrel) or not. Please continue taking the Reglan 4 times a day. A referral has been made for you to the a GI motility clinic in [place]. Pending Studies at Discharge: No Stand-Alone Forms: My [employer], Smoking Cessation Medications and DC Order Prescriptions: Continued pantoprazole 40 mg tablet,delayed release (DR/EC) 40 mg PO BID Qty: 180 3RF clonidine HCl 0.2 mg tablet 0.2 mg PO TID Qty: 270 3RF carvedilol 25 mg tablet 25 mg PO BID Qty: 180 3RF prednisone 5 mg tablet 5 mg PO DAILY azathioprine 50 mg tablet 25 mg PO DAILY hydroxyzine HCl 25 mg tablet 25 mg PO TID PRN (Reason: anxiety) Qty: 60 2RF polyethylene glycol 3350 [Miralax] 17 gram Powder In Packet 17 g PO TID 30 Days Qty: 90 0RF mirtazapine 15 mg tablet 15 mg PO HS 30 Days Qty: 30 0RF Changed metoclopramide HCl 5 mg tablet 5 mg PO ACHS Qty: 120 0RF Rx Instructions: usually takes qhs tacrolimus 1 mg capsule 1 mg PO BID Qty: 60 0RF Discontinued sulfamethoxazole-trimethoprim 400-80 mg tablet 1 tab PO .three times a week Rx Instructions: Friday, Friday and Friday tacrolimus 1 mg capsule 1 mg HS polyethylene glycol 3350 17 gram powder in packet 17 g PO TID Qty: 100 0RF Rx Instructions: 17g (one capful) 3 times a day, may adjust as needed in order to achieve one soft and formed BM per day Discharge Orders: Discharge Order (Routine); Ordered 12/08/24 Ordered By: Nicolasa Mason Admission Data Admit Date/Time: 12/06/24 12:08 Attending Provider: Nicolasa Mason Admit Provider: Nicolasa Mason Primary Care Provider: Kelechi Bennett III Other Providers: Nicolasa Mason; Delicia Brambila; Servando Sierra; Tramaine Otero Hospital Stay Data Consultations 12/06/24 11:34 ED Decision to Admit Stat 12/06/24 11:38 Consult Nephrology Routine 12/06/24 17:59 Consult General Surgery Routine 12/07/24 07:45 Consult Gastroenterology Routine Diagnostic Imagining Performed 12/06/24 09:25 CT Abd and Pelvis [CT abd pelvis wo con] Stat 12/06/24 11:37 US gallbladder Stat Discharge Instructions Given to Patient (Per Discharging Provider) You are admitted with nausea and vomiting related to your gastroparesis. This improved with antinausea medicines and increasing your Reglan to 4 times a day. You were given IV fluids for hydration. You had high potassium levels which may be from elevated tacrolimus levels as well as from taking Bactrim. Please stop taking the Bactrim and decrease your tacrolimus dose to 1 mg twice a day. Please have your blood work drawn on the morning of 12/09 at 8:30 AM, 11-1/2 hours after your evening dose of tacrolimus. Please follow-up with Dr. Allen. Once your transplant nephrology team gets back to you regarding the Bactrim, please have them reach out to Dr. Allen to discuss an alternative to the Bactrim to help prevent PCP. It is also recommended that you take Plavix due to to having stents in your heart, however you believe that your transplant team told you to stop taking this for unknown reasons. Please clarify with them if you are able to take Plavix (clopidogrel) or not. Please continue taking the Reglan 4 times a day. A referral has been made for you to the a GI motility clinic in [place]. Total Time Total Time Spent Total Time Spent (In Minutes): 45 minutes Total Time Includes: Examination of the Patient, Discharge Planning, Medication Reconciliation and Communication With Other Providers (Nephrology) Coding Level of Care Code 88496 INP/OBS DISCH >30 MIN Diagnoses Nausea & vomiting R11.2 Transaminitis R74.01 Hypomagnesemia E83.42 Acute hyperkalemia E87.5
[2024-12-08 18:04] VITALS: BP 145/88; PULSE 62
== END 2024-12-08 18:15 | disposition home or self-care (01) | DRG 391 ==
LOC: SUATTDRO → ED 09:06 → 2N 12:08